=== PATIENT | male | born 1940 | race Hispanic/Latino ===

== ENCOUNTER 2016-06-16 18:02 | Emergency (ER) | payer MEDICARE ==
[2016-06-16 18:04] VITALS: BMI 31.9
[2016-06-16 18:12] VITALS: BP 127/64; PULSE 106; RESP 19; TEMP 98.3; O2SAT 97
--- NOTE | 2016-06-16 19:03 | ED PDOC ---
Arrival/HPI - General Chief Complaint: Upper Extremity Problem/Injury Time Seen by Provider: 06/16/16 18:27 Historian: Patient - History of Present Illness Narrative History of Present Illness (Text): 06/16/16 18:56 75yo male present with the son by the bedside with right elbow redness, swelling and pain, present for right elbow xray. The son notes history of bursitis to same elbow with similar symptoms. States patient have a pin in the same elbow and not sure if he fell and landed on the elbow. 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 states they came to ED to r/o fracture before draining the elbow. He denies any other complaint. Past Medical History - Provider Review Nursing Documentation Reviewed: Yes - Infectious Disease Hx of Infectious Diseases: None - Tetanus Immunization Tetanus Immunization: Unknown - Cardiac Hx Cardiac Disorders: Yes Hx Congestive Heart Failure: Yes Hx Pacemaker: No Other/Comment: silent CT - Pulmonary Hx Respiratory Disorders: Yes (PULMONARY FIBROSIS) Hx Chronic Obstructive Pulmonary Disease (COPD): Yes Hx Sleep Apnea: Yes - Neurological Hx Neurological Disorder: Yes - HEENT Hx HEENT Disorder: Yes Other/Comment: Left [place] - Renal Hx Renal Disorder: Yes Other/Comment: Kidney Cyst- benign - Endocrine/Metabolic Hx Endocrine Disorders: Yes Hx Hypothyroidism: Yes - Hematological/Oncological Hx Blood Disorders: Yes - Integumentary Hx Dermatological Disorder: Yes Other/Comment: Dermatitis. Vitiligo - Musculoskeletal/Rheumatological Hx Musculoskeletal Disorders: Yes Hx Falls: No - Gastrointestinal Hx Gastrointestinal Disorders: Yes Hx Gastroesophageal Reflux: Yes Other/Comment: Endoscopy upper/lower- baretts. Polyps removed. Colonoscopy 7 months ago. - Genitourinary/Gynecological Hx Genitourinary Disorders: Yes Hx Prostate Problems: Yes (BPH) Other/Comment: Urgency in urination. Erectile Dysfunction. Right hydrocoele ( Scrotum) - Psychiatric Hx Emotional Abuse: No Hx Physical Abuse: No Hx Substance Use: No - Surgical History Hx Appendectomy: Yes Hx Cardiac Catheterization: Yes Hx Orthopedic Surgery: Yes Other/Comment: ex-lap, right elbow repair, left elbow rotator cuff repair 2016 - Anesthesia Hx Anesthesia: Yes Hx Anesthesia Reactions: Yes ("BLEEDING FROM AIRWAY USED") Hx Malignant Hyperthermia: No - Suicidal Assessment Feels Threatened In Home Enviroment: No Family/Social History - Physician Review Nursing Documentation Reviewed: Yes Family/Social History: Unknown Family HX Smoking Status: Former Smoker Hx Alcohol Use: Yes (H/O) Frequency of alcohol use: Socially Hx Substance Use: No Hx Substance Use Treatment: No Allergies/Home Meds Allergies/Adverse Reactions: Allergies tape Adverse Reaction (Uncoded 06/16/16 18:12) REDNESS Home Medications: Home Meds Medication Instructions Recorded Confirmed Ascorbic Acid [Natural Vitamin C] 1,000 mg PO QAM 09/13/11 06/16/16 Atorvastatin [Lipitor] 40 mg PO QAM 09/13/11 06/16/16 Natalizumab [Tysabri] 1 dose IV ONCE 09/13/11 06/16/16 Mefloquine [Lariam] 250 mg PO [facility] 01/20/15 06/16/16 Mirtazapine [Remeron] 15 mg PO HS 01/20/15 06/16/16 Esomeprazole Magnesium [Nexium] 40 mg PO DAILY 05/12/15 06/16/16 Montelukast [Singulair] 10 mg PO HS 05/12/15 06/16/16 [place]-3 Fatty Acids/Fish Oil 300 mg PO DAILY 05/12/15 06/16/16 [[place] 3 Fish Oil Softgel] Polyethylene Glycol 3350 [Miralax] 34 mg PO DAILY 05/12/15 06/16/16 Prasugrel [Effient] 10 mg PO DAILY 05/12/15 06/16/16 Temazepam [Restoril] 7.5 mg PO HS 05/12/15 06/16/16 Vitamin B Complex [Super B-50 1 tab PO DAILY 05/12/15 06/16/16 Complex] Levothyroxine [Synthroid] 175 mcg PO DAILY 07/30/15 06/16/16 Lisinopril [Zestril] 5 mg PO DAILY 07/30/15 06/16/16 Tiotropium [Spiriva] 18 mcg NEB DAILY 07/30/15 06/16/16 Venlafaxine HCl [Venlafaxine HCl 75 mg PO DAILY 07/30/15 06/16/16 ER] buPROPion [Wellbutrin] 100 mg PO DAILY 07/30/15 06/16/16 Multivit-Min/FA/Lycopen/Lutein 1 tab PO DAILY 09/05/15 06/16/16 [Centrum Silver Tablet] Fluticasone Furoate [Arnuity 1 inh INH DAILY 03/13/16 06/16/16 Ellipta] Levalbuterol Tartrate [Xopenex Hfa] 1 puff INH QID 03/13/16 06/16/16 Bisacodyl [Dulcolax] 1 supp .ROUTE PRN PRN 03/17/16 06/16/16 Cholecalciferol [Vitamin D 1000 IU] 1 tab PO DAILY 03/17/16 06/16/16 Guaifenesin [Mucus Relief] 1 tab PO DAILY 03/17/16 06/16/16 Review of Systems - Physician Review All systems were reviewed & negative as marked: Yes - Review of Systems Constitutional: Normal Eyes: Normal ENT: Normal Respiratory: Normal Cardiovascular: Normal Gastrointestinal: Normal Genitourinary Male: Normal Musculoskeletal: Arthralgias (Right elbow pain) Skin: Normal Neurological: Normal Endocrine: Normal Hemo/Lymphatic: Normal Psychiatric: Normal Physical Exam Vital Signs Reviewed: Yes Vital Signs Temp Pulse Resp BP Pulse Ox 06/16/16 18:05 98.3 F 106 H 19 127/64 97 Temperature: Afebrile Blood Pressure: Normal Pulse: Regular Respiratory Rate: Normal Appearance: Positive for: Well-Appearing, Non-Toxic, Comfortable Pain Distress: None Mental Status: Positive for: Alert and Oriented X 3 - Systems Exam Head: Present: Atraumatic, Normocephalic Pupils: Present: PERRL Extroacular Muscles: Present: EOMI Conjunctiva: Present: Normal Mouth: Present: Moist Mucous Membranes Neck: Present: Normal Range of Motion Respiratory/Chest: Present: Clear to Auscultation, Good Air Exchange. No: Respiratory Distress, Accessory Muscle Use Cardiovascular: Present: Regular Rate and Rhythm, Normal S1, S2. No: Murmurs Abdomen: Present: Normal Bowel Sounds. No: Tenderness, Distention, Peritoneal Signs Back: Present: Normal Inspection Upper Extremity: Present: Normal ROM, NORMAL PULSES, Tenderness (Right elbow), Swelling (right elbow), Erythema, Temperature Abnormalties (Warm to touch), Capillary Refill < 2s. No: Cyanosis, Edema, Neurovascularly Intact, Deformity Lower Extremity: Present: Normal Inspection. No: Edema Neurological: Present: GCS=15, CN II-XII Intact, Speech Normal Skin: Present: Warm, Dry, Normal Color. No: Rashes Psychiatric: Present: Alert, Oriented x 3, Normal Insight, Normal Concentration Medical Decision Making ED Course and Treatment: 06/16/16 19:26 Right elbow xray - No acute fracture noted. Pins noted in place Result was DW both patient and the son - RAD Interpretation Radiology Orders: 06/16/16 18:53 ELBOW RIGHT 3 VIEWS ROUTINE [RAD] Stat Disposition/Present on Arrival - Present on Arrival Any Indicators Present on Arrival: No History of DVT/PE: No History of Uncontrolled Diabetes: No Urinary Catheter: No History of Decub. Ulcer: No History Surgical Site Infection Following: None - Disposition Have Diagnosis and Disposition been Completed?: Yes Diagnosis: Elbow pain Disposition: HOME/ ROUTINE Disposition Time: 19:30 Patient Plan: Discharge Condition: STABLE Discharge Instructions (ExitCare): Arthralgia (ED) Additional Instructions: Follow up with your doctor/Orthopedist Return to ED for any new or worsening symptoms Referrals: Isreal Choi MD [Primary Care Provider] - Follow up with primary
[2016-06-16] MEDS ORDERED: Oxycodone/Acetaminophen 5/325 mg Tab PO STA (19:36)
--- NOTE | 2016-06-17 07:10 | RAD ---
PROCEDURE: Right Wrist Radiographs. HISTORY: elbow pain/swelling COMPARISON: None. FINDINGS: BONES: Status post ORIF of distal humerus and proximal ulnar fracture with fixation plates and screws in place. Good anatomic alignment. JOINTS: Normal. No dislocation. SOFT TISSUES: Normal. OTHER FINDINGS: None. IMPRESSION: Status post ORIF of distal humerus and proximal ulnar fractures with fixation plate and screws in place.
== END 2016-06-16 19:45 | disposition home or self-care (01) ==
LOC: ED 18:02
DX: M25.521 Pain in right elbow (principal)

== ENCOUNTER 2016-12-22 06:36 | Inpatient (IN) | payer MEDICARE ==
[2016-12-22 06:42] VITALS: BMI 29.7
[2016-12-22] MEDS ORDERED: Morphine 4 mg/ml ISec IVP STA (07:39)
--- NOTE | 2016-12-22 07:53 | ED PDOC ---
Arrival/HPI - General Chief Complaint: Trauma Time Seen by Provider: 12/22/16 07:18 Historian: Patient - History of Present Illness Narrative History of Present Illness (Text): 12/22/16 07:30 Tonio Dueñas is a 76 year old male, whose past medical history includes Multiple Sclerosis, hypertension, hypothyroidism, GERD, COPD, BPH and DC, who presents to the emergency department complaining of left sided body pain, mainly on ribs, s/p mechanical fall since yesterday evening. Patient reports he was on the street when his foot got caught causing him to trip and fall, landing on his left side. He notes on baseline, he is usually weakness on the right side due to his multiple sclerosis. He states the pain is worse when breathing around the 6th -8th ribs. Patient also has abrasions on left knee and a spreading of ecchymosis in the left sided abdomen and rib area. Patient denies chest pain, shortness of breath, headache, neck pain, vision changes, nausea, vomiting, or other complaints. Patient did not hit their head or loss consciousness. Additionally, patient notes he is currently on blood thinners. PMD: Dr. Negron Surgery: Dr. Choi Time/Duration: 24 hours Symptom Onset: Sudden Symptom Course: Unchanged Context: Street, Tripped Associated Symptoms (Text): abrasions, ecchymosis, left rib pain Past Medical History - Provider Review Nursing Documentation Reviewed: Yes - Infectious Disease Hx of Infectious Diseases: None - Tetanus Immunization Tetanus Immunization: Unknown - Cardiac Hx Cardiac Disorders: Yes Hx Congestive Heart Failure: Yes Other/Comment: silent DC - Pulmonary Hx Respiratory Disorders: Yes (PULMONARY FIBROSIS) Hx Chronic Obstructive Pulmonary Disease (COPD): Yes Hx Sleep Apnea: Yes - Neurological Hx Neurological Disorder: Yes - HEENT Hx HEENT Disorder: Yes Other/Comment: Left [place] - Renal Hx Renal Disorder: Yes Other/Comment: Kidney Cyst- benign - Endocrine/Metabolic Hx Endocrine Disorders: Yes Hx Hypothyroidism: Yes - Hematological/Oncological Hx Blood Disorders: Yes - Integumentary Hx Dermatological Disorder: Yes Other/Comment: Dermatitis. Vitiligo - Musculoskeletal/Rheumatological Hx Musculoskeletal Disorders: Yes Hx Falls: No - Gastrointestinal Hx Gastrointestinal Disorders: Yes Hx Gastroesophageal Reflux: Yes Other/Comment: Endoscopy upper/lower- baretts. Polyps removed. Colonoscopy 7 months ago. - Genitourinary/Gynecological Hx Genitourinary Disorders: Yes Hx Prostate Problems: Yes (BPH) Other/Comment: Urgency in urination. Erectile Dysfunction. Right hydrocoele ( Scrotum) - Psychiatric Hx Emotional Abuse: No Hx Physical Abuse: No Hx Substance Use: No - Surgical History Hx Appendectomy: Yes Hx Cardiac Catheterization: Yes Hx Orthopedic Surgery: Yes Other/Comment: ex-lap, right elbow repair, left elbow rotator cuff repair 2016 - Anesthesia Hx Anesthesia: Yes Hx Anesthesia Reactions: Yes ("BLEEDING FROM AIRWAY USED") Hx Malignant Hyperthermia: No - Suicidal Assessment Feels Threatened In Home Enviroment: No Family/Social History - Physician Review Nursing Documentation Reviewed: Yes Family/Social History: Unknown Family HX Smoking Status: Former Smoker Hx Alcohol Use: Yes (H/O) Hx Substance Use: No Hx Substance Use Treatment: No Allergies/Home Meds Allergies/Adverse Reactions: Allergies tape Adverse Reaction (Uncoded 12/22/16 06:42) REDNESS Home Medications: Home Meds Medication Instructions Recorded Confirmed Ascorbic Acid [Natural Vitamin C] 1,000 mg PO QAM 09/13/11 12/22/16 Atorvastatin [Lipitor] 40 mg PO QAM 09/13/11 12/22/16 Natalizumab [Tysabri] 1 dose IV ONCE 09/13/11 12/22/16 Mefloquine [Lariam] 250 mg PO [facility] 01/20/15 12/22/16 Mirtazapine [Remeron] 15 mg PO HS 01/20/15 12/22/16 Esomeprazole Magnesium [Nexium] 40 mg PO DAILY 05/12/15 12/22/16 Montelukast [Singulair] 10 mg PO HS 05/12/15 12/22/16 [place]-3 Fatty Acids/Fish Oil 300 mg PO DAILY 05/12/15 12/22/16 [[place] 3 Fish Oil Softgel] Polyethylene Glycol 3350 [Miralax] 34 mg PO DAILY 05/12/15 12/22/16 Prasugrel [Effient] 10 mg PO DAILY 05/12/15 12/22/16 Temazepam [Restoril] 7.5 mg PO HS 05/12/15 12/22/16 Vitamin B Complex [Super B-50 1 tab PO DAILY 05/12/15 12/22/16 Complex] Levothyroxine [Synthroid] 175 mcg PO DAILY 07/30/15 12/22/16 Lisinopril [Zestril] 5 mg PO DAILY 07/30/15 12/22/16 Tiotropium [Spiriva] 18 mcg NEB DAILY 07/30/15 12/22/16 Venlafaxine HCl [Venlafaxine HCl 75 mg PO DAILY 07/30/15 12/22/16 ER] buPROPion [Wellbutrin] 100 mg PO DAILY 07/30/15 12/22/16 Multivit-Min/FA/Lycopen/Lutein 1 tab PO DAILY 09/05/15 12/22/16 [Centrum Silver Tablet] Fluticasone Furoate [Arnuity 1 inh INH DAILY 03/13/16 12/22/16 Ellipta] Levalbuterol Tartrate [Xopenex Hfa] 1 puff INH QID 03/13/16 12/22/16 Bisacodyl [Dulcolax] 1 supp .ROUTE PRN PRN 03/17/16 12/22/16 Cholecalciferol [Vitamin D 1000 IU] 1 tab PO DAILY 03/17/16 12/22/16 Guaifenesin [Mucus Relief] 1 tab PO DAILY 03/17/16 12/22/16 Armodafinil [Nuvigil 250 mg Tab] 250 mg PO HS 12/22/16 12/22/16 Aspirin [Ecotrin] 324 mg PO DAILY 12/22/16 12/22/16 Ciclesonide [Alvesco] 1 puff INH PRN PRN 12/22/16 12/22/16 Oxycodone HCl/Acetaminophen 1 tab PO PRN PRN 12/22/16 12/22/16 [Endocet 7.5-325 mg Tablet] Review of Systems - Review of Systems Constitutional: absent: Fevers Eyes: absent: Vision Changes Respiratory: absent: SOB Cardiovascular: absent: Chest Pain Gastrointestinal: absent: Abdominal Pain, Nausea, Vomiting Genitourinary Male: absent: Dysuria Musculoskeletal: Other (left sided rib pain, worse when breathing) Skin: Other (abrasion on the left knee) Neurological: absent: Headache, Dizziness Endocrine: absent: Polydipsia Physical Exam Vital Signs Reviewed: Yes Vital Signs Temp Pulse Resp BP Pulse Ox 12/22/16 09:55 97 H 20 158/82 H 98 12/22/16 08:28 90 14 142/85 98 12/22/16 07:15 96 H 20 163/96 H 95 12/22/16 06:50 97.7 F 93 H 18 172/87 H 97 Temperature: Afebrile Blood Pressure: Hypertensive Pulse: Tachycardic Respiratory Rate: Normal Appearance: Positive for: Well-Appearing, Non-Toxic, Comfortable Pain Distress: None Mental Status: Positive for: Alert and Oriented X 3 - Systems Exam Head: Present: Atraumatic, Normocephalic Pupils: Present: PERRL Extroacular Muscles: Present: EOMI Conjunctiva: Present: Normal Mouth: Present: Moist Mucous Membranes Neck: Present: Normal Range of Motion Respiratory/Chest: Present: Clear to Auscultation, Good Air Exchange. No: Respiratory Distress, Accessory Muscle Use Cardiovascular: Present: Regular Rate and Rhythm, Normal S1, S2. No: Murmurs Abdomen: Present: Tenderness (left upper abdomen tenderness with ecchymosis), Normal Bowel Sounds. No: Distention, Peritoneal Signs Upper Extremity: Present: Tenderness (left lower rib tenderness with ecchymosis) , Other (left elbow superficial skin avulsion ). No: Cyanosis, Edema Lower Extremity: Present: Normal ROM, Other (left knee abrasion ). No: Edema Neurological: Present: GCS=15, CN II-XII Intact, Speech Normal Skin: Present: Warm, Dry, Normal Color. No: Rashes Psychiatric: Present: Alert, Oriented x 3, Normal Insight, Normal Concentration Medical Decision Making ED Course and Treatment: 12/22/16 Impression: 76 year old male with left lower rib tenderness with ecchymosis, left upper abdomen tenderness with ecchymosis, left knee abrasion with FROM, and left elbow superficial skin avulsion. Differential Diagnosis included but are not limited to: mechanical fall with left rib pain r/o fracture r/o pneumothorax r/o pulmonary contusion r/o intra- abdominal organ injury. Left knee abrasion r/o fracture Plan: -- CT chest, abdomen, pelvis with IV contrast -- Labs -- Left Knee X-ray -- Morphine -- Reassess and disposition Progress Notes: 12/22/16 09:20 CT abdomen, chest, and pelvis: Creator : Alem Tobar MD COMPARISON: Comparison is made to the previous study dated 11/04/2014 FINDINGS: CT CHEST WITH CONTRAST: LUNGS: There are foci of airspace consolidation at the lung bases left larger than the right likely represent atelectasis. The possibility of aspiration is less likely. Re- demonstration of mild emphysematous changes in the lungs more prominent in the upper lobes. MEDIASTINUM: Unremarkable. Normal caliber aorta and pulmonary arterial trunk. No aortic dissection. The heart is mildly enlarged. Mild diffuse dietitian of the esophagus noted contains fluid and air-fluid level. LYMPH NODES: Unremarkable. PLEURA: No evidence of significant pleural effusion or pneumothorax. BONES: There is mildly displaced fracture at the lateral aspect of the left 7th and 8th ribs and small nondisplaced fracture at the lateral aspect of the 9th rib. OTHER FINDINGS: None. CT ABDOMEN AND PELVIS: LIVER: Unremarkable. No gross lesion or ductal dilatation. GALLBLADDER AND BILE DUCTS: Unremarkable. PANCREAS: No evidence of acute pathology. No gross lesion or ductal dilatation. SPLEEN: Unremarkable. ADRENALS: Unremarkable. No mass. KIDNEYS AND URETERS:No evidence of obstructing stone or hydronephrosis. Again seen is complex lesion contains peripheral calcification exophytic from the lower pole of the right kidney measures 1.6 centimeter which has not significantly change comparing to the previous study dated 11/04/2014 VASCULATURE: Unremarkable. No aortic aneurysm. BOWEL: Unremarkable. No obstruction. No gross mural thickening. APPENDIX: Normal appendix. PERITONEUM: Unremarkable. No free fluid. No free air. Postsurgical changes noted at the right mid abdomen. LYMPH NODES: Unremarkable. No enlarged lymph nodes. BLADDER: Unremarkable. REPRODUCTIVE: Unremarkable. BONES: No acute fracture. OTHER FINDINGS: Again seen is left anterior chest wall subcutaneous intramuscular lipoma IMPRESSION: Mildly displaced fractures at the lateral aspect of the left 7th and 8th ribs and nondisplaced small fracture at the left 9th rib. No evidence of pneumothorax or significant pleural effusion. Small airspace consolidation at the lung bases likely atelectasis. No evidence of acute pathology in the upper abdomen solid organs. 12/22/16 09:29 Patient's pain is moderately controlled after Morphine and Dilaudid. He is having trouble taking deep breathes. He requested Dr. Choi for surgery. I spoke with the surgical training specialist Emi who will discuss the case with Dr. Choi. 12/22/16 09:45 Left Knee X-ray: Creator : Alem Tobar MD FINDINGS: BONES: Normal. No fracture. JOINTS: Mild osteoarthritic changes. JOINT EFFUSION: None. OTHER FINDINGS: None. IMPRESSION: No evidence of acute fracture or dislocation. 12/22/16 10:47 On reevaluation, patient was having more pain and now wheezing. He still complaints of pain on deep breathes. Treatment with Albuterol and Dilaudid ordered. Patient does not want to be admitted to Dr. Osborne who admits for Dr. Negron. I will admit to the hospitalist service for pain control and COPD. Case was discussed with Dr. Molly Martel who will place the patient on her service. - Critical Care Critical Care Minutes: 30 minutes - Lab Interpretations Lab Results: 12/22/16 07:45 12/22/16 07:45 Lab Results 12/22/16 09:15: Blood Type Confirm O POSITIVE 12/22/16 07:45: Blood Type O POSITIVE, Antibody Screen Negative, BBK History Checked No verified bt 12/22/16 07:45: Sodium 139, Potassium 4.6, Chloride 103, Carbon Dioxide 27, Anion Gap 14, BUN 22 H, Creatinine 1.0, Est GFR ( Amer) > 60, Est GFR ( Non-Af Amer) > 60, Random Glucose 125 H, Calcium 9.3, Total Bilirubin 0.8, AST 33, ALT 44, Alkaline Phosphatase 120, Total Protein 7.0, Albumin 4.0, Globulin 3.0, Albumin/Globulin Ratio 1.3, Lipase 33 12/22/16 07:45: PT 12.2, INR 1.11 H, APTT 29.4 12/22/16 07:45: WBC 13.7 H, RBC 4.36, Hgb 12.7 L, Hct 38.8 L, MCV 89.0, MCH 29.1 , MCHC 32.7, RDW 14.8 H, Plt Count 222, MPV 9.2, Gran % 61.4, Lymph % (Auto) 27.9, Yell % (Auto) 8.1 H, Eos % (Auto) 2.2, Baso % (Auto) 0.4, Gran # 8.38 H, Lymph # 3.8 H, Yell # 1.1 H, Eos # 0.3, Baso # 0.05 I have reviewed the lab results: Yes - RAD Interpretation Radiology Orders: 12/22/16 07:40 CHEST,ABD,PEL W/IV CONT ONLY [CT] Stat KNEE LEFT 2 VIEWS (AP & LAT) [RAD] Stat Structural Architect: Radiologist - Medication Orders Current Medication Orders: Discontinued Medications Albuterol Sulfate (Albuterol 0.083% Inhal Hallie (2.5 Mg/3 Ml) Ud) 2.5 mg IH STAT STA Stop: 12/22/16 10:11 Last Admin: 12/22/16 10:29 Dose: 2.5 mg Hydromorphone HCl (Dilaudid) 1 mg IVP STAT STA Stop: 12/22/16 08:15 Last Admin: 12/22/16 08:23 Dose: 1 mg MAR Pain Assessment Document 12/22/16 08:23 CNR (Rec: 12/22/16 08:25 CNR [id number]) Pain Reassessment Is this a pain reassessment? Yes IVP Administration Document 12/22/16 08:23 CNR (Rec: 12/22/16 08:25 CNR [id number]) Charges for Administration # of IVP Administrations 1 Hydromorphone HCl (Dilaudid) 1 mg IVP STAT STA Stop: 12/22/16 10:12 Last Admin: 12/22/16 10:29 Dose: 1 mg MAR Pain Assessment Document 12/22/16 10:29 EWO (Rec: 12/22/16 10:29 EWO [id number]) Pain Reassessment Is this a pain reassessment? Yes Sleep Is patient sleeping during reassessment? No Presence of Pain Presence of Pain Yes Pain Scale Used Pain Scale Used Numeric Location Left, Right or Bilateral Left IVP Administration Document 12/22/16 10:29 EWO (Rec: 12/22/16 10:29 EWO [id number]) Charges for Administration # of IVP Administrations 2 Ipratropium [place] (Atrovent) 0.5 mg IH STAT STA Stop: 12/22/16 10:12 Last Admin: 12/22/16 10:29 Dose: 0.5 mg Morphine Sulfate (Morphine) 4 mg IVP STAT STA Stop: 12/22/16 07:40 Last Admin: 12/22/16 07:45 Dose: 4 mg MAR Pain Assessment Document 12/22/16 07:45 CNR (Rec: 12/22/16 07:45 CNR [id number]) Pain Reassessment Is this a pain reassessment? Yes IVP Administration Document 12/22/16 07:45 CNR (Rec: 12/22/16 07:45 CNR [id number]) Charges for Administration # of IVP Administrations 1 - Scribe Statement The provider has reviewed the documentation as recorded by the Scribe Miracle Esquivel Provider Scribe Attestation: All medical record entries made by the Scribe were at my direction and personally dictated by me. I have reviewed the chart and agree that the record accurately reflects my personal performance of the history, physical exam, medical decision making, and the department course for this patient. I have also personally directed, reviewed, and agree with the discharge instructions and disposition. Disposition/Present on Arrival - Present on Arrival Any Indicators Present on Arrival: No History of DVT/PE: No History of Uncontrolled Diabetes: No Urinary Catheter: No History of Decub. Ulcer: No History Surgical Site Infection Following: None - Disposition Have Diagnosis and Disposition been Completed?: Yes Diagnosis: Ribs, multiple fractures, COPD (chronic obstructive pulmonary disease) Disposition: HOSPITALIZED Disposition Time: 09:30 Patient Plan: Observation Patient Problems: Current Active Problems Problem Status Onset Ribs, multiple fractures Acute Condition: FAIR Referrals: Isreal Choi MD [Primary Care Provider] - Follow up with primary Forms: Simphatic ([place] Citizen)
[2016-12-22] MEDS ORDERED: Iohexol 350 MG/100 ML VIAL ONE (08:01)
[2016-12-22 08:05] LABS: BASO # 0.05 K/mm3 (0.0-2.0); BASO % 0.4 % (0.0-3.0); EOS # 0.3 (0.0-0.7); EOS % 2.2 % (1.5-5.0); GRAN # 8.38 (1.4-6.5); GRAN % 61.4 % (50.0-68.0); HEMATOCRIT 38.8 % (42.0-52.0); LYMPH # 3.8 (1.2-3.4); LYMPH % 27.9 % (22.0-35.0); MEAN CORPUSCULAR HEMOGLOBIN 29.1 pg (25.0-35.0); MEAN CORPUSCULAR HGB CONC 32.7 g/dl (31.0-37.0); MEAN PLATELET VOLUME 9.2 fl (7.0-11.0); MONO # 1.1 (0.1-0.6); MONO % 8.1 % (1.0-6.0); RED CELL DISTRIBUTION WIDTH 14.8 % (11.5-14.5); WHITE BLOOD COUNT 13.7 10^3/ul (4.5-11.0)
[2016-12-22 08:10] LABS: INR 1.11 (0.93-1.08); PARTIAL THROMBOPLASTIN TIME 29.4 Seconds (25.1-36.5)
[2016-12-22] MEDS ORDERED: HYDROmorphone 1 mg/ml ISec IVP STA ×2 (08:14→10:11)
[2016-12-22 08:18] LABS: ALB/GLOB RATIO 1.3 (1.1-1.8); ALKALINE PHOSPHATASE 120 U/L (38-126); ALT/SGPT 44 U/L (7-56); AST/SGOT 33 U/L (17-59); BILIRUBIN,TOTAL 0.8 mg/dL (0.2-1.3); BLOOD UREA NITROGEN 22 mg/dL (7-21); CALCIUM 9.3 mg/dL (8.4-10.5); CARBON DIOXIDE 27 mmol/L (21-33); CHLORIDE 103 mmol/L (98-107); GFR AFRICAN-AMERICAN > 60; GLUCOSE,RANDOM 125 mg/dL (70-110); LIPASE 33 U/L (23-300); POTASSIUM 4.6 mmol/L (3.6-5.0); SODIUM 139 mmol/L (132-148)
--- NOTE | 2016-12-22 09:15 | CT ---
PROCEDURE: CT Chest, Abdomen and Pelvis with intravenous contrast HISTORY: L rib upper abd tender r/o fx vs org inj s/p fal COMPARISON: Comparison is made to the previous study dated 11/04/2014 TECHNIQUE: IV dose administered: 100 mL Omnipaque three hundred. Axial and reformatted coronal and sagittal CT images of the chest abdomen and pelvis were obtained after IV contrast administration. Radiation dose: Total exam DLP = 1201.91 mGy-cm. This CT exam was performed using one or more of the following dose reduction techniques: Automated exposure control, adjustment of the mA and/or kV according to patient size, and/or use of iterative reconstruction technique. FINDINGS: CT CHEST WITH CONTRAST: LUNGS: There are foci of airspace consolidation at the lung bases left larger than the right likely represent atelectasis. The possibility of aspiration is less likely. Re- demonstration of mild emphysematous changes in the lungs more prominent in the upper lobes. MEDIASTINUM: Unremarkable. Normal caliber aorta and pulmonary arterial trunk. No aortic dissection. The heart is mildly enlarged. Mild diffuse dietitian of the esophagus noted contains fluid and air-fluid level. LYMPH NODES: Unremarkable. PLEURA: No evidence of significant pleural effusion or pneumothorax. BONES: There is mildly displaced fracture at the lateral aspect of the left 7th and 8th ribs and small nondisplaced fracture at the lateral aspect of the 9th rib. OTHER FINDINGS: None. CT ABDOMEN AND PELVIS: LIVER: Unremarkable. No gross lesion or ductal dilatation. GALLBLADDER AND BILE DUCTS: Unremarkable. PANCREAS: No evidence of acute pathology. No gross lesion or ductal dilatation. SPLEEN: Unremarkable. ADRENALS: Unremarkable. No mass. KIDNEYS AND URETERS: No evidence of obstructing stone or hydronephrosis. Again seen is complex lesion contains peripheral calcification exophytic from the lower pole of the right kidney measures 1.6 centimeter which has not significantly change comparing to the previous study dated 11/04/2014 VASCULATURE: Unremarkable. No aortic aneurysm. BOWEL: Unremarkable. No obstruction. No gross mural thickening. APPENDIX: Normal appendix. PERITONEUM: Unremarkable. No free fluid. No free air. Postsurgical changes noted at the right mid abdomen. LYMPH NODES: Unremarkable. No enlarged lymph nodes. BLADDER: Unremarkable. REPRODUCTIVE: Unremarkable. BONES: No acute fracture. OTHER FINDINGS: Again seen is left anterior chest wall subcutaneous intramuscular lipoma IMPRESSION: Mildly displaced fractures at the lateral aspect of the left 7th and 8th ribs and nondisplaced small fracture at the left 9th rib. No evidence of pneumothorax or significant pleural effusion. Small airspace consolidation at the lung bases likely atelectasis. No evidence of acute pathology in the upper abdomen solid organs.
--- NOTE | 2016-12-22 09:47 | RAD ---
PROCEDURE: Left Knee Radiographs. HISTORY: Pain. COMPARISON: None. FINDINGS: BONES: Normal. No fracture. JOINTS: Mild osteoarthritic changes. JOINT EFFUSION: None. OTHER FINDINGS: None. IMPRESSION: No evidence of acute fracture or dislocation.
[2016-12-22] MEDS ORDERED: Albuterol 0.083% Inhal Sol (2.5 mg/3 mL) UD IH STA (10:10)
[2016-12-22] MEDS ORDERED: Ipratropium 0.02% Inhal Soln (0.5 mg/2.5 ml) UD IH STA (10:11)
--- NOTE | 2016-12-22 11:32 | CP.PCM.CON ---
History of Present Illness - History of Present Illness History of Present Illness: General surgery consult note for Dr. Yifan Wilson, PGY-1 Pt S & E at bedside. 76M w/PMH sig for MS and R sided muscle weakness consulted for L rib fractures x 3. Pt reports ambulating to car this AM when he tripped, feel to ground protecting his head with resulting trauma to Left side of body including L knee , L elbow, Left thorax. Denies dizziness, LOC, syncope, recent illness, changes from baseline bowel and bladder habits. PMH: MS w/R sided muscle weakness, hypothyroidism, chronic constipation on daily Miralax, hydrocele, COPD, HTN, HLD, s/p ME w/SAGAR x 2, hearing loss bilat PSH: s/p LN biopsy of thorax, RIHR (2011), appy, ex-lap w/finding of clot All: Tape SH: former heavy tobacco user (50+ yrs), rare ETOH use, denies illicit drug use PMD: Condo Review of Systems - Review of Systems All systems: reviewed and no additional remarkable complaints except - Constitutional Constitutional: Weakness (R sided 2/2 MS). absent: Chills, Fever, Headache - EENT Eyes: absent: Change in Vision Ears: Decreased Hearing Nose/Mouth/Throat: absent: Sore Throat - Cardiovascular Cardiovascular: absent: Chest Pain, Lightheadedness, Syncope - Respiratory Respiratory: Wheezing (chronic) - Gastrointestinal Gastrointestinal: Constipation (chronic). absent: Change in Bowel Habits, Diarrhea, Nausea, Vomiting - Genitourinary Genitourinary: absent: Change in Urinary Stream - Musculoskeletal Musculoskeletal: Muscle Weakness (R sided), Other (Left elbow and keep pain ) - Integumentary Integumentary: Other (Abrasion of L elbow and L knee) Past Patient History - Infectious Disease Hx of Infectious Diseases: None - Tetanus Immunizations Tetanus Immunization: Unknown - Past Medical History & Family History Past Medical History?: Yes - Past Social History Smoking Status: Former Smoker - CARDIAC Hx Cardiac Disorders: Yes Hx Congestive Heart Failure: Yes Other/Comment: silent ME - PULMONARY Hx Respiratory Disorders: Yes (PULMONARY FIBROSIS) Hx Chronic Obstructive Pulmonary Disease (COPD): Yes Hx Sleep Apnea: Yes - NEUROLOGICAL Hx Neurological Disorder: Yes - HEENT Hx HEENT Problems: Yes Other/Comment: Left [place] - RENAL Hx Chronic Kidney Disease: Yes Other/Comment: Kidney Cyst- benign - ENDOCRINE/METABOLIC Hx Endocrine Disorders: Yes Hx Hypothyroidism: Yes - HEMATOLOGICAL/ONCOLOGICAL Hx Blood Disorders: Yes - INTEGUMENTARY Hx Dermatological Problems: Yes Other/Comment: Dermatitis. Vitiligo - MUSCULOSKELETAL/RHEUMATOLOGICAL Hx Musculoskeletal Disorders: Yes Hx Falls: No - GASTROINTESTINAL Hx Gastrointestinal Disorders: Yes Hx Gastroesophageal Reflux: Yes Other/Comment: Endoscopy upper/lower- baretts. Polyps removed. Colonoscopy 7 months ago. - GENITOURINARY/GYNECOLOGICAL Hx Genitourinary Disorders: Yes Hx Prostate Problems: Yes (BPH) Other/Comment: Urgency in urination. Erectile Dysfunction. Right hydrocoele ( Scrotum) - PSYCHIATRIC Hx Emotional Abuse: No Hx Physical Abuse: No Hx Substance Use: No - SURGICAL HISTORY Hx Appendectomy: Yes Hx Cardiac Catheterization: Yes Hx Orthopedic Surgery: Yes Other/Comment: ex-lap, right elbow repair, left elbow rotator cuff repair 2015 - ANESTHESIA Hx Anesthesia: Yes Hx Anesthesia Reactions: Yes ("BLEEDING FROM AIRWAY USED") Hx Malignant Hyperthermia: No Meds Allergies/Adverse Reactions: Allergies Allergy/AdvReac Type Severity Reaction Status Date / Time tape AdvReac REDNESS Uncoded 12/22/16 06:42 Physical Exam - Constitutional Appears: Non-toxic, No Acute Distress - Head Exam Head Exam: ATRAUMATIC, NORMAL INSPECTION, NORMOCEPHALIC - Eye Exam Eye Exam: EOMI, Normal appearance - ENT Exam ENT Exam: Mucous Membranes Moist, Normal Exam - Neck Exam Neck exam: Positive for: Full Rom, Normal Inspection - Respiratory Exam Respiratory Exam: Chest Wall Tenderness (Left chest wall), Clear to Auscultation Bilateral, NORMAL BREATHING PATTERN. absent: Accessory Muscle Use , Rales, Rhonchi, Wheezes - Cardiovascular Exam Cardiovascular Exam: REGULAR RHYTHM, +S1, +S2 - GI/Abdominal Exam GI & Abdominal Exam: Normal Bowel Sounds, Soft, Tenderness (over left abdominal wall). absent: Distended (obese) - Extremities Exam Additional comments: Left knee with dressings in place- Clean/dry/intact; left elbow with dressing and kirlex in place- clean/dry/intact - Neurological Exam Neurological exam: Alert, CN II-XII Intact, Oriented x3 - Psychiatric Exam Psychiatric exam: Normal Affect, Normal Mood - Skin Skin Exam: Dry, Warm Additional comments: visible ecchymoses over lateral aspect of left forearm below the dressing Results - Vital Signs Recent Vital Signs: Last Vital Signs Temp 97.7 F 12/22/16 06:50 Pulse 95 H 12/22/16 11:00 Resp 18 12/22/16 11:00 BP 138/77 12/22/16 11:00 Pulse Ox 94 L 12/22/16 11:00 - Labs Result Diagrams: 12/22/16 07:45 12/22/16 07:45 Assessment & Plan - Assessment and Plan (Free Text) Assessment: 76M w/fractures of L ribs 7-9 s/p mechanical fall consulted for Left thorax pain - pt currently stable Plan: Pain control Incentive spirometry pulmonary toilet Anesthesia for local nerve block to L ribs 7-9 Pulm consult OOBTC further management as per primary team IANI attending Katie, PGY-4 - Date & Time Date: 12/22/16 Time: 11:34
[2016-12-22] MEDS ORDERED: CICLESONIDE INH PRN (12:36)
[2016-12-22] MEDS ORDERED: OMEGA PO SCH (12:45)
[2016-12-22] MEDS ORDERED: GUAIFENESIN PO SCH (12:45)
[2016-12-22] MEDS ORDERED: FLUTICASONE FUROATE INH SCH (12:45)
[2016-12-22] MEDS ORDERED: FATTY ACIDS PO SCH (12:45)
[2016-12-22] MEDS ORDERED: [UNRECOGNIZED DRUG - OTHER] PO SCH (12:45)
[2016-12-22] MEDS ORDERED: VENLAFAXINE HCL 75 MG PO SCH (12:45)
[2016-12-22] MEDS ORDERED: Aspirin 325 mg EC Tablets PO SCH (12:45)
[2016-12-22] MEDS ORDERED: FISH OIL PO SCH (12:45)
[2016-12-22] MEDS: HYDROmorphone 1 mg/ml ISec IVP PRN ×3 (13:25→23:21)
[2016-12-22] MEDS: Aspirin 325 mg EC Tablets PO SCH ×2 (14:57→15:08)
[2016-12-22] MEDS: Tiotropium 18 mcg Cap For Inhalation IH SCH (14:57)
[2016-12-22] MEDS: Levalbuterol 0.63 MG/3 ML Inhal Soln UD IH SCH ×2 (15:31→21:30)
[2016-12-22] MEDS: Morphine 2 mg/ml ISec IVP PRN (15:42)
--- NOTE | 2016-12-22 19:22 | CP.PCM.HP ---
<Gurdeep Mulligan - Last Filed: 12/22/16 18:31> History of Present Illness - History of Present Illness History of Present Illness: IM H&P for Hospitalist Service CC: Left-sided chest/flank pain s/p mechanical fall HPI: This is a 76 yo M with PMH of MS (chronic R-sided muscle weakness ), MT s/p 2 stents, hypothyroidism, chronic constipation on daily Miralax, hydrocele, COPD, HTN, HLD, and hearing loss bilaterally who presented to [facility] [place] 1 day after mechanical fall onto left side with intractable left flank and left chest pain. As per patient, he was walking to his car, and believes he hit some debris when planting his left foot, causing him to lose his balance and fall. He denies syncope/near-syncope, weakness prior to/during/after the fall, memory loss, or head trauma. Reports that he was able to protect his head on the way down, and did not strike it. Initially attempted to self manage his home pain, but today felt that the pain was unbearable, so he presented to the ED. Imaging in the ED was notable for left lateral rib fractures at ribs 7-9 ( mildly displaced 7th and 8th, non-displaced 9th). He reports no pain when lying at rest, but significant pain with any movement, deep breathing, or coughing. Denies physical difficultly breathing, radiating chest pain, nausea/ emesis, fevers/chills, diarrhea, dysuria/hematuria, or acute vision changes. Admits to baseline R-sided weakness 2/2 MS, no acute changes, and baseline constipation. All other ROS in 12-system review negative. PMH: as above PSH: s/p LN biopsy of thorax, R inguinal hernia repair (2011), appy, ex-lap w/ finding of clot, Cardiac cath and stenting SHx: former heavy tobacco user (~50 yrs of 2ppd on average, quit > 15 years ago) , rare ETOH use, denies illicits/IVDA drug use FHx: CAD (Father) PMD: Condo Present on Admission - Present on Admission Any Indicators Present on Admission: No History of DVT/PE: No History of Uncontrolled Diabetes: No Urinary Catheter: No Review of Systems - Review of Systems All systems: reviewed and no additional remarkable complaints except (as per HPI ) Past Patient History - Infectious Disease Hx of Infectious Diseases: None - Tetanus Immunizations Tetanus Immunization: Unknown - Past Medical History & Family History Past Medical History?: Yes - Past Social History Smoking Status: Former Smoker - CARDIAC Hx Cardiac Disorders: Yes Hx Congestive Heart Failure: Yes Other/Comment: silent MT - PULMONARY Hx Respiratory Disorders: Yes (PULMONARY FIBROSIS) Hx Chronic Obstructive Pulmonary Disease (COPD): Yes Hx Sleep Apnea: Yes - NEUROLOGICAL Hx Neurological Disorder: Yes - HEENT Hx HEENT Problems: Yes Other/Comment: Left [place] - RENAL Hx Chronic Kidney Disease: Yes Other/Comment: Kidney Cyst- benign - ENDOCRINE/METABOLIC Hx Endocrine Disorders: Yes Hx Hypothyroidism: Yes - HEMATOLOGICAL/ONCOLOGICAL Hx Blood Disorders: Yes - INTEGUMENTARY Hx Dermatological Problems: Yes Other/Comment: Dermatitis. Vitiligo - MUSCULOSKELETAL/RHEUMATOLOGICAL Hx Musculoskeletal Disorders: Yes Hx Falls: No - GASTROINTESTINAL Hx Gastrointestinal Disorders: Yes Hx Gastroesophageal Reflux: Yes Other/Comment: Endoscopy upper/lower- baretts. Polyps removed. Colonoscopy 7 months ago. - GENITOURINARY/GYNECOLOGICAL Hx Genitourinary Disorders: Yes Hx Prostate Problems: Yes (BPH) Other/Comment: Urgency in urination. Erectile Dysfunction. Right hydrocoele ( Scrotum) - PSYCHIATRIC Hx Emotional Abuse: No Hx Physical Abuse: No Hx Substance Use: No - SURGICAL HISTORY Hx Appendectomy: Yes Hx Cardiac Catheterization: Yes Hx Orthopedic Surgery: Yes Other/Comment: ex-lap, right elbow repair, left elbow rotator cuff repair 2015 - ANESTHESIA Hx Anesthesia: Yes Hx Anesthesia Reactions: Yes ("BLEEDING FROM AIRWAY USED") Hx Malignant Hyperthermia: No Meds Allergies/Adverse Reactions: Allergies Allergy/AdvReac Type Severity Reaction Status Date / Time tape AdvReac REDNESS Uncoded 12/22/16 06:42 Physical Exam - Constitutional Appears: Non-toxic, No Acute Distress (at rest), In Acute Distress (acute distress from pain with any coughing or movement involving the trunk) - Head Exam Head Exam: ATRAUMATIC, NORMAL INSPECTION, NORMOCEPHALIC - Eye Exam Eye Exam: EOMI, Normal appearance, PERRL. absent: Conjunctival injection, Scleral icterus Pupil Exam: NORMAL ACCOMODATION, PERRL. absent: Fixed, Irregular, Unequal - ENT Exam ENT Exam: Mucous Membranes Moist - Neck Exam Neck exam: Positive for: Normal Inspection. Negative for: Tenderness - Respiratory Exam Respiratory Exam: Chest Wall Tenderness (moderately tender to palpation along left-chest wall and side, however had recently received pain medication so likely blunted exam finding), Decreased Breath Sounds (mildly decreased breath sounds in all zimmerman), Clear to Auscultation Bilateral, Prolonged Expiratory Phase, NORMAL BREATHING PATTERN. absent: Accessory Muscle Use, Rales, Rhonchi, Wheezes Additional comments: wearing chest binder - Cardiovascular Exam Cardiovascular Exam: REGULAR RHYTHM, RRR, +S1, +S2. absent: Bradycardia, Tachycardia, Irregular Rhythm, JVD, +S4 - GI/Abdominal Exam GI & Abdominal Exam: Normal Bowel Sounds, Soft. absent: Distended, Firm, Guarding, Rigid, Tenderness - Extremities Exam Extremities exam: Positive for: normal inspection, pedal pulses present. Negative for: calf tenderness, joint swelling, pedal edema - Neurological Exam Neurological exam: Alert, CN II-XII Intact, Oriented x3 Additional comments: mild R-sided weakness, RUE and RLE motor and conservation worker strength 4/5, LUE and LLE motor and conservation worker strength 5/5 sensory grossly intact and equal bilaterally - Psychiatric Exam Psychiatric exam: Normal Affect, Normal Mood - Skin Skin Exam: Dry, Intact, Normal Color, Warm Results - Vital Signs Recent Vital Signs: Last Vital Signs Temp 98.3 F 12/22/16 12:31 Pulse 95 H 12/22/16 12:31 Resp 18 12/22/16 12:31 BP 132/80 12/22/16 12:31 Pulse Ox 94 L 12/22/16 11:00 - Labs Result Diagrams: 12/22/16 07:45 12/22/16 07:45 Assessment & Plan - Assessment and Plan (Free Text) Assessment: This is a 76 yo M with PMH of MS (chronic R-sided muscle weakness), MT s/p 2 stents, hypothyroidism, chronic constipation on daily Miralax, hydrocele, COPD, HTN, HLD, s/p MT w/SAGAR x 2, and hearing loss bilaterally who presented to [facility] [place] 1 day after mechanical fall onto left side with intractable left flank and left chest pain. He was admitted for close monitoring and management of multiple rib fracture 2/2 traumatic mechanical fall. Plan: 1) Traumatic fall resulting in intractable chest pain -2/2 rib fractures vs ACS, want to rule out Pneumothorax/hemothorax -fall described as mechanical, with component 2/2 MS (right sided weakness at baseline, ?unstable gait) -CT chest notable for ribs fractures, left ribs 7-9, 7 and 8 mildly displaced, 9 non-displaced, no PE, no pneumothorax/hemothorax noted -Pain control with Dilaudid 1.5mg IVP q4h prn, morphine 2mg IVP q6h prn for breakthrough pain -Chest binder in place -Cardiac iso to monitor for ACS, will also monitor CPK to watch for possible rhabdo -Incentinve spirometer to prevent worsening atelectasis, avoid predisposing to pneumonia -Not actually on blood thinner, on Aspirin 324mg and Effient for antiplatelet due to 2 cardiac stents -Surgery consulted, appreciate all recs; recommends Anesthesia for possible nerve block, and Pulm consult, both in place -Out of bed to chair as tolerated -PT to assess, may require SANJAY after discharge 2) Hx MS with R-sided weakness -likely contributory to mechanical fall -continue home MS medications -PT -MS reported as stable and well managed, no need for Neuro consult at this time 3) Hypothyroid -continue home synthroid -TSH, Free T4, Total T3 ordered with tomorrow AM labs, f/u 4) Chronic constipation -likely due to home pain medication use (Percocet listed in home meds) -continue home Miralax -getting a more intensive pain regimen due to current injury, will likely need to increase constipation regimen for this admission, but will monitor on current regimen first 5) COPD -continue Xopenex and home inhalers, Pulmicort in place of home steroid inhaler not on formulary as per Pharmacy -Supplemental O2 as needed to maintain SaO2 > 88% -Pulm consulted, appreciate all recs 6) HTN -continue home lisinopril at 2.5mg PO daily (home dose was listed at 5mg, but patient reports was recently decreased to 2.5 by PMD) -will adjust as necessary, may experience upward BP fluctuations due to pain from fractures, but may also experience decreases due to strong pain regimen for fractures 7) HLD -Lipitor 40mg PO daily, heart-healthy soft diet 8) Hx MT s/p 2 stents -continue home ASA and Effient Dispo: Med/Surg obs, pending Anesthesia and Pulm assessment and input FEN: Soft Heart-healthy diet Access: Peripheral IV Consults: Anesthesia, Surgery, Pulm Ppx: Protonix for GI, SCDs for DVT (avoid AC in setting of traumatic fall and fractures) Patient seen, reviewed, and discussed with attending, Dr. Martel. Decision To Admit - Pt Status Changed To: Hospital Disposition Of: Observation - . Bed Request Type: Med/Surg <Cameron Martelmanuela B - Last Filed: 12/23/16 14:57> Results - Vital Signs Recent Vital Signs: Last Vital Signs Temp 98.0 F 12/23/16 07:27 Pulse 108 H 12/23/16 07:27 Resp 22 12/23/16 07:27 BP 135/75 12/23/16 07:27 Pulse Ox 90 L 12/23/16 07:27 - Labs Result Diagrams: 12/23/16 07:20 12/23/16 07:20 Labs: Laboratory Results - last 24 hr 12/22/16 12/23/16 12/23/16 20:50 07:20 07:20 WBC 21.3 H D RBC 4.44 Hgb 12.9 L Hct 40.0 L MCV 90.1 MCH 29.1 MCHC 32.3 RDW 15.1 H Plt Count 236 MPV 9.6 Gran % 68.2 H Lymph % (Auto) 21.4 L [place] % (Auto) 9.6 H Eos % (Auto) 0.5 L Baso % (Auto) 0.3 Gran # 14.50 H Lymph # 4.6 H [place] # 2.1 H Eos # 0.1 Baso # 0.07 PT INR APTT Sodium 136 Potassium 5.0 Chloride 102 Carbon Dioxide 24 Anion Gap 15 BUN 35 H Creatinine 1.6 H Est GFR ( Amer) 51 Est GFR (Non-Af Amer) 42 Random Glucose 113 H Calcium 9.5 Phosphorus 4.4 Magnesium 1.8 Total Bilirubin 1.4 H Direct Bilirubin AST 39 ALT 39 Alkaline Phosphatase 117 Lactate Dehydrogenase 524 648 Total Creatine Kinase 84 148 Troponin I 0.06 0.07 Total Protein 7.3 Albumin 4.2 Globulin 3.1 Albumin/Globulin Ratio 1.4 Free T4 Total T3 TSH 3rd Generation 12/23/16 12/23/16 12/23/16 07:20 08:15 09:27 WBC RBC Hgb Hct MCV MCH MCHC RDW Plt Count MPV Gran % Lymph % (Auto) [place] % (Auto) Eos % (Auto) Baso % (Auto) Gran # Lymph # [place] # Eos # Baso # PT 12.9 H INR 1.17 H APTT 27.6 Sodium Potassium Chloride Carbon Dioxide Anion Gap BUN Creatinine Est GFR ( Amer) Est GFR (Non-Af Amer) Random Glucose Calcium Phosphorus Magnesium Total Bilirubin Direct Bilirubin 0.7 H AST ALT Alkaline Phosphatase Lactate Dehydrogenase Total Creatine Kinase Troponin I Total Protein Albumin Globulin Albumin/Globulin Ratio Free T4 1.26 Total T3 1.53 TSH 3rd Generation 2.98 12/23/16 13:05 WBC RBC Hgb Hct MCV MCH MCHC RDW Plt Count MPV Gran % Lymph % (Auto) [place] % (Auto) Eos % (Auto) Baso % (Auto) Gran # Lymph # [place] # Eos # Baso # PT INR APTT Sodium Potassium Chloride Carbon Dioxide Anion Gap BUN Creatinine Est GFR ( Amer) Est GFR (Non-Af Amer) Random Glucose Calcium Phosphorus Magnesium Total Bilirubin Direct Bilirubin AST ALT Alkaline Phosphatase Lactate Dehydrogenase 560 Total Creatine Kinase 143 Troponin I 0.07 Total Protein Albumin Globulin Albumin/Globulin Ratio Free T4 Total T3 TSH 3rd Generation Attending/Attestation - Attestation I have personally seen and examined this patient.: Yes I have fully participated in the care of the patient.: Yes I have reviewed all pertinent clinical information: Yes Notes (Text): I have seen and examined the patient at bedside. Agree with the above note with the following additions/ exceptions: Briefly this is 76 year old male with history of MS with chronic right sided muscle weakness, MT s/p cardiac stent, hypothyroidism, chronic constipation on daily Miralax, hydrocele, COPD, former smoker, HTN, HLD, and hearing loss bilaterally who presented to [facility] [place] s/p mechanical fall and developed multiple rib fractures on the left side. CT chest reviewed. Chest binder in place. Will continue IV analgesics. Surgery consult appreciated. Continue incentive spirometer. PT eval ordered. Pulm and anesthesia consult pending. Upon discharge patient will follow up with Dr Negron. Dr Bianca Martel
[2016-12-22] MEDS ORDERED: Budesonide 0.5 mg/2 ml Inhal Susp UD IH SCH (20:00)
[2016-12-22 21:17] LABS: TROPONIN I 0.06 ng/mL
[2016-12-22] MEDS ORDERED: TEMAZEPAM 7.5 MG PO SCH (22:00)
[2016-12-23] MEDS ORDERED: Levalbuterol 0.63 MG/3 ML Inhal Soln UD IH STA (01:49)
[2016-12-23] MEDS ORDERED: guaiFENesin 200 mg/10 ml Syrup UD PO STA (01:50)
[2016-12-23] MEDS: HYDROmorphone 1 mg/ml ISec IVP PRN ×3 (02:51→15:10)
[2016-12-23] MEDS ORDERED: HYDROmorphone 2 mg/ml ISec IVP PRN ×2 (05:45→10:02)
[2016-12-23] MEDS: Morphine 2 mg/ml ISec IVP PRN (05:47)
[2016-12-23] MEDS: Pantoprazole 40 mg EC Tab PO SCH (05:54)
[2016-12-23] MEDS: Armodafinil 250 mg Tab PO SCH ×2 (06:51→23:31)
[2016-12-23] MEDS: Levalbuterol 0.63 MG/3 ML Inhal Soln UD IH PRN ×3 (07:34→19:59)
[2016-12-23 07:44] LABS: BASO # 0.07 K/mm3 (0.0-2.0); BASO % 0.3 % (0.0-3.0); EOS # 0.1 (0.0-0.7); EOS % 0.5 % (1.5-5.0); GRAN # 14.5 (1.4-6.5); GRAN % 68.2 % (50.0-68.0); LYMPH # 4.6 (1.2-3.4); LYMPH % 21.4 % (22.0-35.0); MEAN CELL VOLUME 90.1 fl (80.0-105.0); MEAN CORPUSCULAR HEMOGLOBIN 29.1 pg (25.0-35.0); MEAN CORPUSCULAR HGB CONC 32.3 g/dl (31.0-37.0); MEAN PLATELET VOLUME 9.6 fl (7.0-11.0); MONO # 2.1 (0.1-0.6); MONO % 9.6 % (1.0-6.0); RED CELL DISTRIBUTION WIDTH 15.1 % (11.5-14.5); WHITE BLOOD COUNT 21.3 10^3/ul (4.5-11.0)
--- NOTE | 2016-12-23 07:54 | CP.PCM.PCO ---
Physician Communication Note - Physician Communication Note Physician Communication Note: Pain uncontrolled-will change regimen. Surgery will follow.
[2016-12-23 08:04] LABS: ALB/GLOB RATIO 1.4 (1.1-1.8); BILIRUBIN,TOTAL 1.4 mg/dL (0.2-1.3); CALCIUM 9.5 mg/dL (8.4-10.5); MAGNESIUM 1.8 mg/dL (1.7-2.2); PHOSPHOROUS 4.4 mg/dL (2.5-4.5); TOTAL PROTEIN 7.3 g/dL (5.8-8.3)
[2016-12-23 08:05] LABS: TROPONIN I 0.07 ng/mL
[2016-12-23 08:11] LABS: FREE T4 1.26 ng/dL (0.78-2.19)
[2016-12-23 08:25] LABS: T3 1.53 ng/mL (0.97-1.69); THYROID STIMULATING HORMONE 2.98 mIU/mL (0.46-4.68)
[2016-12-23 09:07] LABS: INR 1.17 (0.93-1.08)
[2016-12-23 09:08] LABS: PARTIAL THROMBOPLASTIN TIME 27.6 Seconds (25.1-36.5)
[2016-12-23] MEDS ORDERED: Aspirin 325 mg EC Tablets PO SCH (10:00)
[2016-12-23] MEDS ORDERED: Non Formulary Medication (Multivit-Min/Fa/Lycopen/Lutein [Centrum Silver Tablet] 1 TAB) PO SCH (10:00)
[2016-12-23] MEDS ORDERED: FLUTICASONE FUROATE INH SCH (10:00)
[2016-12-23] MEDS ORDERED: VITAMIN B COMPLEX PO SCH (10:00)
[2016-12-23] MEDS ORDERED: POLYETHYLENE GLYCOL 3350 17 GM/Dose PACKET PO SCH ×2 (10:00)
--- NOTE | 2016-12-23 10:59 | RAD ---
HISTORY: s/p mech fall with L-rib fractures, f/u COMPARISON: Comparison is made to 03/17/2016 FINDINGS: LUNGS: Interval appearance of focal opacity at the left lower lung and right lower lung since the previous exam likely atelectasis or scar tissue. PLEURA: No significant pleural effusion identified, no pneumothorax apparent. CARDIOVASCULAR: Normal. OSSEOUS STRUCTURES: Left lower ribs fractures seen better in the previous CT dated 12/22/2016 VISUALIZED UPPER ABDOMEN: Normal. OTHER FINDINGS: None. IMPRESSION: New opacities at the lower lobes more prominent on the left may represent atelectasis.
--- NOTE | 2016-12-23 11:21 | CON ---
DATE: 12/23/2016 PULMONARY CONSULTATION The patient was seen and examined at bedside. History was obtained from the patient and Emergency Room record. HISTORY OF PRESENT ILLNESS: The patient came to the Emergency Room after experiencing a fall on the street according to him, his leg caught in uneven pavement and he fell striking his left side of his chest. Since the fall, he experienced progressive pain and also shortness of breath with painful cough and inability to raise secretions. The symptom onset was sudden and this happened 24 hours ago, associated symptoms of abrasion, ecchymosis, and left rib pain. PAST MEDICAL HISTORY: The patient is known to our service. 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 His past medical history is positive for chronic obstructive pulmonary disease, pulmonary fibrosis, and multiple sclerosis. SOCIAL HISTORY: He is a former smoker, nondrinker, never used illicit drugs. FAMILY HISTORY: Negative for inherited diseases. HOME MEDICATIONS: Include Singulair, atorvastatin, Remeron, Nexium, levothyroxine, lisinopril, Spiriva, Arnuity, and Nuvigil. REVIEW OF SYSTEMS: Was conducted by reviewing all sources. CONSTITUTIONAL: Negative. CARDIOVASCULAR: No complaints of chest pain anteriorly, only laterally where he fell. PULMONARY: See history of present illness. GI: No nausea, vomiting or diarrhea. : No dysuria or hematuria. MUSCULOSKELETAL: Complains typical of multiple sclerosis. The rest of the systems was reviewed and found to be negative. PHYSICAL EXAMINATION VITAL SIGNS: His temperature is 97, blood pressure is 150/80, respirations are 20, and pulse oximetry is 94% on nasal cannula. RESPIRATORY: Decreased breath sounds. CARDIOVASCULAR: Regular rhythm. S1 and S2, without murmur, gallop, or rub. ABDOMEN: Soft. Bowel sounds normoactive. : Within normal limits. EXTREMITIES: Reveal no clubbing, cyanosis or edema. No Homans sign is noted. NEUROLOGIC: No focal findings LYMPHATIC: Within normal limits. SKIN: Dry; intact. I examined the chest x-ray, which demonstrate minor atelectatic changes at both lungs bases, no acute infiltrate. I also examined the CT scan of the chest, which revealed nondisplaced fractures in 7th to 9th ribs on the left, atelectatic changes at both bases. No effusions and no infiltrates. LABORATORY DATA: His INR is 1.1. WBC 13.7, hemoglobin 12.7, granulocytes 8.38, and lymphocytes 3.8. ASSESSMENT: 1. Contusion of left chest. 2. Rib fractures 7th to 9th on left. 3. Chronic obstructive pulmonary disease. 4. Multiple sclerosis. PLAN: The patient is wrapped with tight wrapping around the chest, which helps his pain. He is able to bring up secretions better now with aerosol therapy, Mucomyst was added to the nebulizer treatment after our discussion with Dr. Martel, the primary. He will continue with Montelukast. We will continue with DuoNeb. His regular Spiriva and Arnuity will be restarted upon discharge. His condition is guarded, but not critical. Merlin Flaherty MD MTDD
[2016-12-23] MEDS: Multivitamin Therapeutic Tab PO SCH (11:22)
[2016-12-23] MEDS: Levothyroxine 175 MCG TAB PO SCH (11:23)
[2016-12-23] MEDS: levoFLOXacin 750 mg in D5W 750 MG/150 ML BAG IVPB SCH (11:24)
[2016-12-23] MEDS: POLYETHYLENE GLYCOL 3350 17 GM/Dose PACKET PO SCH ×2 (11:26→18:30)
[2016-12-23] MEDS: Lidocaine 5% Patch TD SCH (11:29)
[2016-12-23] MEDS: Aspirin 325 mg EC Tablets PO SCH (11:30)
[2016-12-23] MEDS: GUAIFENESIN PO SCH (11:31)
[2016-12-23] MEDS: OMEGA PO SCH (11:32)
[2016-12-23] MEDS: Non Formulary Medication (Multivit-Min/Fa/Lycopen/Lutein [Centrum Silver Tablet] 1 TAB) PO SCH (11:32)
[2016-12-23] MEDS: FISH OIL PO SCH (11:32)
[2016-12-23] MEDS: [UNRECOGNIZED DRUG - OTHER] PO SCH (11:32)
[2016-12-23] MEDS: FATTY ACIDS PO SCH (11:32)
[2016-12-23] MEDS: Tiotropium 18 mcg Cap For Inhalation IH SCH (11:34)
[2016-12-23] MEDS: Acetylcysteine 20% Inhal Soln (4ml) IH SCH ×2 (13:14→19:59)
[2016-12-23 13:36] LABS: TROPONIN I 0.07 ng/mL
[2016-12-23] MEDS: guaiFENesin 200 mg/10 ml Syrup UD PO PRN ×2 (15:10→22:19)
[2016-12-23] MEDS: Oxycodone/Acetaminophen 5/325 mg Tab PO PRN ×2 (16:44→21:23)
--- NOTE | 2016-12-23 20:35 | CP.PCM.PN ---
<Gurdeep Mulligan - Last Filed: 12/23/16 20:30> Subjective - Date & Time of Evaluation Date of Evaluation: 12/23/16 Time of Evaluation: 07:45 - Subjective Subjective: IM Progress Note for Hospitalist Service Patient seen and examined at bedside. Sitting up in bed without overt difficulty, and does not appear in acute distress, but continuously requesting that his Dilaudid be increased. Reports poor sleep overnight, and cough with thick dark-green/brown mucous. Denies hemoptysis. Denies nausea, emesis, diarrhea, new focal weakness, or focal paresthesia. Objective - Vital Signs/Intake and Output Vital Signs (last 24 hours): Temp Pulse Resp BP Pulse Ox 99.4 F 118 H 20 102/60 81 L 12/23/16 16:00 12/23/16 16:00 12/23/16 16:00 12/23/16 16:00 12/23/16 16:00 Intake and Output: 12/23/16 12/24/16 18:59 06:59 Intake Total 600 Output Total 600 Balance 0 - Medications Medications: Current Medications Acetylcysteine (Acetylcysteine 20%) [id number] [facility] Last Admin: 12/23/16 19:59 Dose: 4 ml Armodafinil (Nuvigil 250 Mg Tab) [address] [facility] Last Admin: 12/23/16 06:51 Dose: Not Given Ascorbic Acid (Vitamin C 500 Mg Tab) 1,[address] [facility] Last Admin: 12/23/16 11:23 Dose: 1,000 mg Aspirin (Ecotrin) [address] [facility] Last Admin: 12/23/16 11:30 Dose: 325 mg Atorvastatin Calcium (Lipitor) [address] [facility] Last Admin: 12/23/16 18:30 Dose: 40 mg Budesonide (Pulmicort Respules) 0.[id number] [facility] Bupropion HCl (Wellbutrin) [address] [facility] Last Admin: 12/23/16 11:23 Dose: 100 mg Cholecalciferol (Vitamin D) 1,[address] [facility] Last Admin: 12/23/16 11:23 Dose: 1,000 iu Cyclobenzaprine HCl (Flexeril) [address] [facility] Last Admin: 12/23/16 18:30 Dose: 5 mg Gabapentin (Neurontin) 100 mg PO BID [facility] PRN Reason: Protocol Last Admin: 12/23/16 18:30 Dose: 100 mg Guaifenesin (Robitussin) 200 mg PO Q4H PRN PRN Reason: Cough and congestion Last Admin: 12/23/16 15:10 Dose: 200 mg Hydromorphone HCl (Dilaudid) 1.5 mg IVP Q4H PRN PRN Reason: Pain, moderate (4-7) Levofloxacin/Dextrose (Levaquin 750mg) 750 mg in 150 mls @ 100 mls/hr IVPB DAILY [facility] Last Admin: 12/23/16 11:24 Dose: 100 mls/hr Sodium Chloride (Sodium Chloride 0.9%) 1,000 mls @ 100 mls/hr IV .Q10H [facility] Levalbuterol HCl (Xopenex) 0.63 mg IH [id number] PRN PRN Reason: Shortness of Breath Last Admin: 12/23/16 19:59 Dose: 0.63 mg Levothyroxine Sodium (Synthroid) 175 mcg PO DAILY [facility] Last Admin: 12/23/16 11:23 Dose: 175 mcg Lidocaine (Lidoderm) [address] [facility] Last Admin: 12/23/16 11:29 Dose: 1 ea Lisinopril (Zestril) 2.[address] [facility] Last Admin: 12/23/16 11:23 Dose: 2.5 mg Mefloquine HCl (Lariam) 250 mg PO MON [facility] Mirtazapine (Remeron) [address] [facility] Last Admin: 12/22/16 22:08 Dose: 15 mg Montelukast Sodium (Singulair) [address] [facility] Last Admin: 12/22/16 22:08 Dose: 10 mg Multivitamins (Thera Tab) 1 tab PO DAILY [facility] Last Admin: 12/23/16 11:22 Dose: 1 tab Non-Formulary Medication (Fluticasone Furoate [Arnuity Ellipta]) [address] [facility] Last Admin: 12/23/16 11:31 Dose: Not Given Non-Formulary Medication (Guaifenesin [Mucus Relief]) 1 tab PO DAILY [facility] Last Admin: 12/23/16 11:31 Dose: Not Given Non-Formulary Medication (Multivit-Min/Fa/Lycopen/Lutein [Centrum Silver Tablet] ) [address] [facility] Last Admin: 12/23/16 11:32 Dose: Not Given Non-Formulary Medication ([place]-3 Fatty Acids/Fish Oil [[place] 3 Fish Oil Softgel ]) [address] [facility] Last Admin: 12/23/16 11:32 Dose: Not Given Oxycodone/Acetaminophen (Percocet 5/325 Mg Tab) 1 tab PO Q4H PRN PRN Reason: Pain, Mild (1-3) Stop: 12/26/16 10:01 Last Admin: 12/23/16 16:44 Dose: 1 tab Pantoprazole Sodium (Protonix Ec Tab) [address] [facility] Last Admin: 12/23/16 05:54 Dose: 40 mg Polyethylene Glycol (Miralax) [address] [facility] Last Admin: 12/23/16 18:30 Dose: 17 gm Prasugrel (Effient) [address] [facility] Last Admin: 12/23/16 11:23 Dose: 10 mg Tiotropium [place] (Spiriva) [address] [facility] Last Admin: 12/23/16 11:34 Dose: 18 mcg Venlafaxine HCl (Effexor) [address] [facility] Last Admin: 12/23/16 11:23 Dose: 75 mg - Labs Labs: 12/23/16 07:20 12/23/16 07:20 PT 12.9 SECONDS (9.4-12.5) H 12/23/16 08:15 INR 1.17 (0.93-1.08) H 12/23/16 08:15 APTT 27.6 Seconds (25.1-36.5) 12/23/16 08:15 - Additional Findings Additional findings: - Constitutional Appears: Non-toxic, No Acute Distress (at rest), In Acute Distress (acute distress from pain with any coughing or movement involving the trunk) - Head Exam Head Exam: ATRAUMATIC, NORMAL INSPECTION, NORMOCEPHALIC - Eye Exam Eye Exam: EOMI, Normal appearance, PERRL. absent: Conjunctival injection, Scleral icterus Pupil Exam: NORMAL ACCOMODATION, PERRL. absent: Fixed, Irregular, Unequal - ENT Exam ENT Exam: Mucous Membranes Moist - Neck Exam Neck exam: Positive for: Normal Inspection. Negative for: Tenderness - Respiratory Exam Respiratory Exam: Chest Wall Tenderness (moderately tender to palpation along left-chest wall and side), Decreased Breath Sounds (mildly decreased breath sounds in all zimmerman), Clear to Auscultation Bilateral, Prolonged Expiratory Phase, NORMAL BREATHING PATTERN. absent: Accessory Muscle Use, Rales, Rhonchi, Wheezes Additional comments: wearing chest binder, container with thick dark-green/brown mucous - Cardiovascular Exam Cardiovascular Exam: REGULAR RHYTHM, RRR, +S1, +S2. absent: Bradycardia, Tachycardia, Irregular Rhythm, JVD, +S4 - GI/Abdominal Exam GI & Abdominal Exam: Normal Bowel Sounds, Soft. absent: Distended, Firm, Guarding, Rigid, Tenderness - Extremities Exam Extremities exam: Positive for: normal inspection, pedal pulses present. Negative for: calf tenderness, joint swelling, pedal edema - Neurological Exam Neurological exam: Alert, CN II-XII Intact, Oriented x3 mild R-sided weakness, RUE and RLE motor and pre fabricator strength 4/5, LUE and LLE motor and pre fabricator strength 5/5 sensory grossly intact and equal bilaterally - Psychiatric Exam Psychiatric exam: Normal Affect, Normal Mood - Skin Skin Exam: Dry, Intact, Normal Color, Warm Assessment and Plan - Assessment and Plan (Free Text) Assessment: This is a 76 yo M with PMH of MS (chronic R-sided muscle weakness), VA s/p 2 stents, hypothyroidism, chronic constipation on daily Miralax, hydrocele, COPD, HTN, HLD, s/p VA w/SAGAR x 2, and hearing loss bilaterally who presented to [facility] 1 day after mechanical fall onto left side with intractable left flank and left chest pain. He was admitted for close monitoring and management of multiple rib fracture 2/2 traumatic mechanical fall. Surgical service is following as well. Plan: 1) Traumatic fall resulting in intractable chest pain -2/2 rib fractures vs ACS, want to rule out Pneumothorax/hemothorax -fall described as mechanical, with component 2/2 MS (right sided weakness at baseline, ?unstable gait) -CT chest notable for ribs fractures, left ribs 7-9, 7 and 8 mildly displaced, 9 non-displaced, no PE, no pneumothorax/hemothorax noted -Pain control with Dilaudid 1.5mg IVP q4h prn, morphine 2mg IVP q6h prn for breakthrough pain; regimen to be adjusted as per Surgical service, planning to decrease dilaudid and add Lidoderm patch/Flexeril/Percocet, pending possible nerve block by Anesthesia -Chest binder in place -Trops 0.06, 0.07, 0.07, trops in march 2016 0.06 and 0.09, appears to be at baseline -Incentinve spirometer to prevent worsening atelectasis, avoid predisposing to pneumonia -Not actually on blood thinner, on Aspirin 324mg and Effient for antiplatelet due to 2 cardiac stents -Pulm following; agrees with mucomyst added to nebulizers, pt to resume home regimen of inhalers on discharge -Out of bed to chair as tolerated -PT to assess, may require SANJAY after discharge 2) Hx MS with R-sided weakness -likely contributory to mechanical fall -continue home MS medications -PT -MS reported as stable and well managed, no need for Neuro consult at this time 3) Hypothyroid -continue home synthroid -TSH, Free T4, Total T3 wnl 4) Chronic constipation -likely due to home pain medication use (Percocet listed in home meds) -continue home Miralax -getting a more intensive pain regimen due to current injury, will likely need to increase constipation regimen for this admission, but will monitor on current regimen first 5) COPD -continue Xopenex and home inhalers, Pulmicort in place of home steroid inhaler not on formulary as per Pharmacy -Supplemental O2 as needed to maintain SaO2 > 88% -Pulm consulted, appreciate all recs 6) HTN -continue home lisinopril at 2.5mg PO daily -will adjust as necessary, may experience upward BP fluctuations due to pain from fractures, but may also experience decreases due to strong pain regimen for fractures 7) HLD -Lipitor 40mg PO daily, heart-healthy soft diet 8) Hx VA s/p 2 stents -continue home ASA and Effient Dispo: Med/Surg obs, pending Anesthesia and Pulm assessment and input FEN: Soft Heart-healthy diet Access: Peripheral IV Consults: Anesthesia, Surgery, Pulm Ppx: Protonix for GI, SCDs for DVT (avoid AC in setting of traumatic fall and fractures) Patient seen, reviewed, and discussed with attending, Dr. Martel. <Bianca Martel - Last Filed: 12/31/16 13:32> Objective - Vital Signs/Intake and Output Vital Signs (last 24 hours): Temp Pulse Resp BP Pulse Ox 98.6 F 77 22 120/72 92 L 12/28/16 07:30 12/28/16 09:56 12/28/16 07:30 12/28/16 09:56 12/28/16 07:30 - Labs Labs: 12/27/16 06:40 12/28/16 07:00 PT 15.1 SECONDS (9.4-12.5) H 12/24/16 06:40 INR 1.36 (0.93-1.08) H 12/24/16 06:40 APTT 29.1 Seconds (25.1-36.5) 12/24/16 06:40 Attending/Attestation - Attestation I have personally seen and examined this patient.: Yes I have fully participated in the care of the patient.: Yes I have reviewed all pertinent clinical information, including history, physical exam and plan: Yes Notes (Text): I have seen and examined the patient at bedside. Agree with the above note with the following additions/ exceptions: Briefly this is 76 year old male with history of MS with chronic right sided muscle weakness, VA s/p cardiac stent, hypothyroidism, chronic constipation on daily Miralax, hydrocele, COPD, former smoker, HTN, HLD, and hearing loss bilaterally who presented to [facility] s/p mechanical fall and developed multiple rib fractures on the left side. CT chest reviewed. Chest binder in place. Will continue IV analgesics. Patient is complaining of thick mucous production. Start antibiotics. Continue incentive spirometer. Surgery consult appreciated. Continue incentive spirometer. PT eval pending. Pulm eval appreciated. Anesthesia consult pending. Upon discharge patient will follow up with Dr Negron. Dr Bianca Martel
[2016-12-24] MEDS: guaiFENesin 200 mg/10 ml Syrup UD PO PRN ×2 (02:12→09:34)
[2016-12-24] MEDS: Acetylcysteine 20% Inhal Soln (4ml) IH SCH ×4 (02:15→22:58)
[2016-12-24] MEDS: Sodium Chloride 0.9% 1,000 ML IV SCH ×3 (03:25→16:24)
[2016-12-24] MEDS: Oxycodone/Acetaminophen 5/325 mg Tab PO PRN ×2 (04:46→17:26)
[2016-12-24] MEDS: Levalbuterol 0.63 MG/3 ML Inhal Soln UD IH PRN ×2 (04:50→16:20)
[2016-12-24] MEDS: Pantoprazole 40 mg EC Tab PO SCH (05:16)
[2016-12-24 07:20] LABS: BASO # 0.02 K/mm3 (0.0-2.0); BASO % 0.1 % (0.0-3.0); EOS % 0.1 % (1.5-5.0); GRAN # 13.12 (1.4-6.5); GRAN % 77.4 % (50.0-68.0); HEMATOCRIT 33.2 % (42.0-52.0); LYMPH # 2.6 (1.2-3.4); LYMPH % 15.4 % (22.0-35.0); MEAN CORPUSCULAR HGB CONC 32.5 g/dl (31.0-37.0); MEAN PLATELET VOLUME 9.4 fl (7.0-11.0); MONO # 1.2 (0.1-0.6); RED CELL DISTRIBUTION WIDTH 15.1 % (11.5-14.5)
[2016-12-24] MEDS: Levalbuterol 0.63 MG/3 ML Inhal Soln UD IH SCH ×3 (07:23→22:59)
[2016-12-24 07:25] LABS: INR 1.36 (0.93-1.08); PARTIAL THROMBOPLASTIN TIME 29.1 Seconds (25.1-36.5)
[2016-12-24 07:28] LABS: ALB/GLOB RATIO 1.1 (1.1-1.8); BILIRUBIN,TOTAL 1.2 mg/dL (0.2-1.3); CALCIUM 9.2 mg/dL (8.4-10.5); MAGNESIUM 1.7 mg/dL (1.7-2.2); PHOSPHOROUS 3.8 mg/dL (2.5-4.5); POTASSIUM 4.4 mmol/L (3.6-5.0); TOTAL PROTEIN 6.2 g/dL (5.8-8.3)
--- NOTE | 2016-12-24 08:03 | PN ---
PULMONARY PROGRESS NOTE SUBJECTIVE: The patient appears comfortable at rest. He is not short of breath. It is very painful for him to move. PHYSICAL EXAMINATION: VITAL SIGNS: Last temperature recorded is 99.4, pulse this morning 88, respiratory rate 18/20, blood pressure 102/60. Oxygen saturation on nasal cannula is 94%. HEENT: Normocephalic, atraumatic. NECK: No JVD. CARDIOVASCULAR: Positive S1, S2. No S3 gallop. LUNGS: Decreased breath sounds at the bases. Mild loose bilateral rhonchi. No wheezing. EXTREMITIES: No clubbing, cyanosis or edema. Calves are nontender to palpation. GI: Abdomen is soft, nontender and nondistended. Bowel sounds are positive. SKIN: No acute rash. NEUROLOGIC: Limited at the present time. IMPRESSION: 1. Multiple left-sided rib fractures 2. Status post fall at home. 3. Chronic obstructive pulmonary disease. 4. Mild bronchospasm. 5. Mild basal atelectasis. 6. Multiple sclerosis. PLAN: The patient appears comfortable at rest. He is not short of breath. As above, it is very painful for him to move. On physical exam, there is mild bronchospasm noted. In addition, there is a mild increase in the alveolar-arterial gradient. I will continue with the Xopenex treatments, but change to every 6 hours [id number]. I will also continue with the Spiriva and budesonide. The patient remains on antibiotic therapy. There are no temperatures noted. The leukocytosis is improved/decreased. Surgical evaluation with Dr. Choi is also noted. As above, the patient experiences a significant amount of pain with any movement. I would continue with the incentive spirometry, and have the patient out of bed as much as possible. Repeat a.m. labs are pending. Clinical status of the patient is improved-compared to the initial presentation. However, his overall status does remain guarded. I will discuss the above with the attending physician this morning. Amanuel Riggins MD [facility]
--- NOTE | 2016-12-24 08:12 | CP.PCM.PN ---
Subjective - Date & Time of Evaluation Date of Evaluation: 12/24/16 Time of Evaluation: 08:07 - Subjective Subjective: PGY1 General Surgery Note for Dr. Choi Patient seen and examined at bedside this morning. No acute events overnight night. Patient states he is still experiencing some pain, but he reports that he was able to sleep last night. He reports that he has been coughing up white colored phlegm. He is tolerating his diet. Denies fevers, chills, nausea, vomiting, diarrhea, constipation or shortness of breath (outside of pain with breathing). Objective - Vital Signs/Intake and Output Vital Signs (last 24 hours): Temp Pulse Resp BP Pulse Ox 99.4 F 118 H 20 102/60 81 L 12/23/16 16:00 12/23/16 16:00 12/23/16 22:00 12/23/16 16:00 12/23/16 16:00 Intake and Output: 12/24/16 12/24/16 06:59 18:59 Intake Total 580 Balance 580 - Medications Medications: Current Medications Acetylcysteine (Acetylcysteine 20%) 4 ml IH [id number] [facility] Last Admin: 12/24/16 07:23 Dose: 4 ml Armodafinil (Nuvigil 250 Mg Tab) 250 mg PO HS [facility] Last Admin: 12/23/16 23:31 Dose: Not Given Ascorbic Acid (Vitamin C 500 Mg Tab) 1,000 mg PO QAM [facility] Last Admin: 12/23/16 11:23 Dose: 1,000 mg Aspirin (Ecotrin) 325 mg PO DAILY [facility] Last Admin: 12/23/16 11:30 Dose: 325 mg Atorvastatin Calcium (Lipitor) 40 mg PO DIN [facility] Last Admin: 12/23/16 18:30 Dose: 40 mg Budesonide (Pulmicort Respules) 0.5 mg IH [id number] [facility] Bupropion HCl (Wellbutrin) 100 mg PO DAILY [facility] Last Admin: 12/23/16 11:23 Dose: 100 mg Cholecalciferol (Vitamin D) 1,000 iu PO DAILY [facility] Last Admin: 12/23/16 11:23 Dose: 1,000 iu Cyclobenzaprine HCl (Flexeril) 5 mg PO TID [facility] Last Admin: 12/23/16 18:30 Dose: 5 mg Gabapentin (Neurontin) 100 mg PO BID [facility] PRN Reason: Protocol Last Admin: 12/23/16 18:30 Dose: 100 mg Guaifenesin (Robitussin) 200 mg PO Q4H PRN PRN Reason: Cough and congestion Last Admin: 12/24/16 02:12 Dose: 200 mg Hydromorphone HCl (Dilaudid) 1.5 mg IVP Q4H PRN PRN Reason: Pain, moderate (4-7) Levofloxacin/Dextrose (Levaquin 750mg) 750 mg in 150 mls @ 100 mls/hr IVPB DAILY [facility] Last Admin: 12/23/16 11:24 Dose: 100 mls/hr Sodium Chloride (Sodium Chloride 0.9%) 1,000 mls @ 100 mls/hr IV .Q10H [facility] Last Admin: 12/24/16 03:25 Dose: 100 mls/hr Levalbuterol HCl (Xopenex) 0.63 mg IH [id number] [facility] Last Admin: 12/24/16 07:23 Dose: 0.63 mg Levalbuterol HCl (Xopenex) 0.63 mg IH Q2 PRN PRN Reason: Shortness of Breath Levothyroxine Sodium (Synthroid) 175 mcg PO DAILY [facility] Last Admin: 12/23/16 11:23 Dose: 175 mcg Lidocaine (Lidoderm) 1 ea TD DAILY [facility] Last Admin: 12/23/16 11:29 Dose: 1 ea Lisinopril (Zestril) 2.5 mg PO DAILY [facility] Last Admin: 12/23/16 11:23 Dose: 2.5 mg Mefloquine HCl (Lariam) 250 mg PO MON [facility] Mirtazapine (Remeron) 15 mg PO HS [facility] Last Admin: 12/23/16 22:19 Dose: 15 mg Montelukast Sodium (Singulair) 10 mg PO HS [facility] Last Admin: 12/23/16 22:19 Dose: 10 mg Multivitamins (Thera Tab) 1 tab PO DAILY [facility] Last Admin: 12/23/16 11:22 Dose: 1 tab Non-Formulary Medication (Guaifenesin [Mucus Relief]) 1 tab PO DAILY [facility] Last Admin: 12/23/16 11:31 Dose: Not Given Non-Formulary Medication (Multivit-Min/Fa/Lycopen/Lutein [Centrum Silver Tablet] ) 1 tab PO DAILY [facility] Last Admin: 12/23/16 11:32 Dose: Not Given Non-Formulary Medication ([place]-3 Fatty Acids/Fish Oil [[place] 3 Fish Oil Softgel ]) 300 mg PO DAILY [facility] Last Admin: 12/23/16 11:32 Dose: Not Given Oxycodone/Acetaminophen (Percocet 5/325 Mg Tab) 1 tab PO Q4H PRN PRN Reason: Pain, Mild (1-3) Stop: 12/26/16 10:01 Last Admin: 12/24/16 04:46 Dose: 1 tab Pantoprazole Sodium (Protonix Ec Tab) 40 mg PO 0600 [facility] Last Admin: 12/24/16 05:16 Dose: 40 mg Polyethylene Glycol (Miralax) 17 gm PO BID [facility] Last Admin: 12/23/16 18:30 Dose: 17 gm Prasugrel (Effient) 10 mg PO DAILY [facility] Last Admin: 12/23/16 11:23 Dose: 10 mg Tiotropium [place] (Spiriva) 18 mcg IH DAILY [facility] Last Admin: 12/23/16 11:34 Dose: 18 mcg Venlafaxine HCl (Effexor) 75 mg PO DAILY [facility] Last Admin: 12/23/16 11:23 Dose: 75 mg - Labs Labs: 12/24/16 06:40 12/24/16 06:40 PT 15.1 SECONDS (9.4-12.5) H 12/24/16 06:40 INR 1.36 (0.93-1.08) H 12/24/16 06:40 APTT 29.1 Seconds (25.1-36.5) 12/24/16 06:40 - Constitutional Appears: Non-toxic, No Acute Distress - Head Exam Head Exam: ATRAUMATIC, NORMOCEPHALIC - Eye Exam Eye Exam: EOMI, Normal appearance. absent: Scleral icterus - ENT Exam ENT Exam: Mucous Membranes Moist - Respiratory Exam Respiratory Exam: Chest Wall Tenderness (left sided), NORMAL BREATHING PATTERN. absent: Accessory Muscle Use, Respiratory Distress - Cardiovascular Exam Cardiovascular Exam: REGULAR RHYTHM - GI/Abdominal Exam GI & Abdominal Exam: Soft. absent: Distended, Firm, Guarding, Rigid, Tenderness - Extremities Exam Additional comments: Left knee with dressings in place - c/d/i; left elbow with dressing and kerlix in place - c/d/i - Neurological Exam Neurological Exam: Alert, Awake, Oriented x3 - Psychiatric Exam Psychiatric exam: Normal Affect, Normal Mood - Skin Skin Exam: Dry, Warm Additional comments: ecchymoses of different stages of healing throughout body, consistent with mechanical fall Assessment and Plan - Assessment and Plan (Free Text) Assessment: 76M w/fractures of L ribs 7-9 s/p mechanical fall consulted for Left thorax pain - pt currently stable Plan: Pain control Incentive spirometry pulmonary toilet Anesthesia for local nerve block to L ribs 7-9 Pulm consult OOBTC further management as per primary team Will discuss with Dr. Jimbo Ayoub Larry PGY1
[2016-12-24] MEDS: Aspirin 325 mg EC Tablets PO SCH (09:31)
[2016-12-24] MEDS: GUAIFENESIN PO SCH (09:32)
[2016-12-24] MEDS: levoFLOXacin 750 mg in D5W 750 MG/150 ML BAG IVPB SCH (09:32)
[2016-12-24] MEDS: Non Formulary Medication (Multivit-Min/Fa/Lycopen/Lutein [Centrum Silver Tablet] 1 TAB) PO SCH (09:33)
[2016-12-24] MEDS: POLYETHYLENE GLYCOL 3350 17 GM/Dose PACKET PO SCH ×2 (09:33→17:25)
[2016-12-24] MEDS: Lidocaine 5% Patch TD SCH (09:33)
[2016-12-24] MEDS: [UNRECOGNIZED DRUG - OTHER] PO SCH (09:34)
[2016-12-24] MEDS: FISH OIL PO SCH (09:34)
[2016-12-24] MEDS: OMEGA PO SCH (09:34)
[2016-12-24] MEDS: FATTY ACIDS PO SCH (09:34)
[2016-12-24] MEDS: Tiotropium 18 mcg Cap For Inhalation IH SCH (09:35)
[2016-12-24] MEDS: Multivitamin Therapeutic Tab PO SCH (09:35)
[2016-12-24] MEDS: Levothyroxine 175 MCG TAB PO SCH (09:35)
--- NOTE | 2016-12-24 09:37 | RAD ---
HISTORY: f/u, left rib fx and LLL opacity COMPARISON: 12/23/2016. FINDINGS: LUNGS: There is interval development of airspace disease in the right lower lobe. There is persistent airspace disease in the left lower lobe. PLEURA: No significant pleural effusion identified, no pneumothorax apparent. CARDIOVASCULAR: Normal. OSSEOUS STRUCTURES: Stable. VISUALIZED UPPER ABDOMEN: Normal. OTHER FINDINGS: None. IMPRESSION: Airspace disease in both lower lobes, more confluent in the right lower lobe. Although findings could represent subsegmental atelectasis superimposed pneumonia cannot be excluded. Follow-up is advised.
[2016-12-24] MEDS: HYDROmorphone 1 mg/ml ISec IVP PRN ×3 (09:49→21:35)
--- NOTE | 2016-12-24 10:42 | CP.PCM.PN ---
Addendum entered and electronically signed by Briseida Anderson DO 12/24/16 20:13: Anesthesia evaluated patient regarding nerve blocks to manage pain and upon discussion with pain management, Dr. Mcdermott, recommendation is Neurontin, Percocet , and Lidocaine patch. Contact for Dr. Mcdermott and Dr. Solitario at [facility] as follows: [phone] Original Note: <Briseida Anderson - Last Filed: 12/24/16 20:02> Subjective - Date & Time of Evaluation Date of Evaluation: 12/24/16 Time of Evaluation: 07:30 - Subjective Subjective: PGY2 Medicine note for Dr. Hitchcock Patient seen and examined at bedside. No acute events overnight as per nursing. Patient reports pain on left side especially with coughing which he rates 9/10 in intensity. Binder is in place. He is using IS regularly and is eager to ambulate with PT. Patient is moving from bed to chair with assistance. Patient denies fever, chills, headache, dizziness, chest pain, palpitations, abd pain, nausea, vomiting, bladder complaints, pain/swelling in his legs bilaterally. He is aware of contusion on left hip. He admits to constipation and requested something for his bowel regimen in addition to Miralax. Objective - Vital Signs/Intake and Output Vital Signs (last 24 hours): Temp Pulse Resp BP Pulse Ox 98.2 F 114 H 18 113/71 90 L 12/24/16 08:15 12/24/16 09:35 12/24/16 08:15 12/24/16 09:35 12/24/16 08:15 Intake and Output: 12/24/16 12/24/16 06:59 18:59 Intake Total 580 1300 Output Total 200 Balance 580 1100 - Medications Medications: Current Medications Acetylcysteine (Acetylcysteine 20%) 4 ml IH [id number] [facility] Last Admin: 12/24/16 07:23 Dose: 4 ml Armodafinil (Nuvigil 250 Mg Tab) 250 mg PO HS [facility] Last Admin: 12/23/16 23:31 Dose: Not Given Ascorbic Acid (Vitamin C 500 Mg Tab) 1,000 mg PO QAM [facility] Last Admin: 12/24/16 09:35 Dose: 1,000 mg Aspirin (Ecotrin) 325 mg PO DAILY [facility] Last Admin: 12/24/16 09:31 Dose: 325 mg Atorvastatin Calcium (Lipitor) 40 mg PO DIN [facility] Last Admin: 12/23/16 18:30 Dose: 40 mg Budesonide (Pulmicort Respules) 0.5 mg IH [id number] [facility] Bupropion HCl (Wellbutrin) 100 mg PO DAILY [facility] Last Admin: 12/24/16 09:35 Dose: 100 mg Cholecalciferol (Vitamin D) 1,000 iu PO DAILY [facility] Last Admin: 12/24/16 09:35 Dose: 1,000 iu Cyclobenzaprine HCl (Flexeril) 5 mg PO TID [facility] Last Admin: 12/24/16 09:32 Dose: 5 mg Docusate Sodium (Colace) 100 mg PO TID [facility] Gabapentin (Neurontin) 100 mg PO BID [facility] PRN Reason: Protocol Last Admin: 12/24/16 09:34 Dose: 100 mg Guaifenesin (Robitussin) 200 mg PO Q4H PRN PRN Reason: Cough and congestion Last Admin: 12/24/16 09:34 Dose: 200 mg Hydromorphone HCl (Dilaudid) 1.5 mg IVP Q4H PRN PRN Reason: Pain, moderate (4-7) Last Admin: 12/24/16 09:49 Dose: 1.5 mg Levofloxacin/Dextrose (Levaquin 750mg) 750 mg in 150 mls @ 100 mls/hr IVPB DAILY [facility] Last Admin: 12/24/16 09:32 Dose: 100 mls/hr Sodium Chloride (Sodium Chloride 0.9%) 1,000 mls @ 100 mls/hr IV .Q10H [facility] Last Admin: 12/24/16 03:25 Dose: 100 mls/hr Levalbuterol HCl (Xopenex) 0.63 mg IH [id number] [facility] Last Admin: 12/24/16 07:23 Dose: 0.63 mg Levalbuterol HCl (Xopenex) 0.63 mg IH Q2 PRN PRN Reason: Shortness of Breath Levothyroxine Sodium (Synthroid) 175 mcg PO DAILY [facility] Last Admin: 12/24/16 09:35 Dose: 175 mcg Lidocaine (Lidoderm) 1 ea TD DAILY [facility] Last Admin: 12/24/16 09:33 Dose: 1 ea Lisinopril (Zestril) 2.5 mg PO DAILY [facility] Last Admin: 12/24/16 09:35 Dose: 2.5 mg Mefloquine HCl (Lariam) 250 mg PO MON [facility] Last Admin: 12/24/16 10:13 Dose: Not Given Mirtazapine (Remeron) 15 mg PO HS [facility] Last Admin: 12/23/16 22:19 Dose: 15 mg Montelukast Sodium (Singulair) 10 mg PO HS [facility] Last Admin: 12/23/16 22:19 Dose: 10 mg Multivitamins (Thera Tab) 1 tab PO DAILY [facility] Last Admin: 12/24/16 09:35 Dose: 1 tab Non-Formulary Medication (Guaifenesin [Mucus Relief]) 1 tab PO DAILY [facility] Last Admin: 12/24/16 09:32 Dose: Not Given Non-Formulary Medication (Multivit-Min/Fa/Lycopen/Lutein [Centrum Silver Tablet] ) 1 tab PO DAILY [facility] Last Admin: 12/24/16 09:33 Dose: Not Given Non-Formulary Medication ([place]-3 Fatty Acids/Fish Oil [[place] 3 Fish Oil Softgel ]) 300 mg PO DAILY [facility] Last Admin: 12/24/16 09:34 Dose: Not Given Oxycodone/Acetaminophen (Percocet 5/325 Mg Tab) 1 tab PO Q4H PRN PRN Reason: Pain, Mild (1-3) Stop: 12/26/16 10:01 Last Admin: 12/24/16 04:46 Dose: 1 tab Pantoprazole Sodium (Protonix Ec Tab) 40 mg PO 0600 [facility] Last Admin: 12/24/16 05:16 Dose: 40 mg Polyethylene Glycol (Miralax) 17 gm PO BID [facility] Last Admin: 12/24/16 09:33 Dose: 17 gm Prasugrel (Effient) 10 mg PO DAILY [facility] Last Admin: 12/24/16 09:31 Dose: 10 mg Tiotropium [place] (Spiriva) 18 mcg IH DAILY [facility] Last Admin: 12/24/16 09:35 Dose: 18 mcg Venlafaxine HCl (Effexor) 75 mg PO DAILY [facility] Last Admin: 12/24/16 09:31 Dose: 75 mg - Labs Labs: 12/24/16 06:40 12/24/16 06:40 PT 15.1 SECONDS (9.4-12.5) H 12/24/16 06:40 INR 1.36 (0.93-1.08) H 12/24/16 06:40 APTT 29.1 Seconds (25.1-36.5) 12/24/16 06:40 - Constitutional Appears: Non-toxic, No Acute Distress - Head Exam Head Exam: NORMAL INSPECTION, NORMOCEPHALIC - Eye Exam Eye Exam: EOMI, Normal appearance. absent: Conjunctival injection, Scleral icterus Pupil Exam: PERRL - ENT Exam ENT Exam: Mucous Membranes Moist - Neck Exam Neck Exam: absent: Lymphadenopathy - Respiratory Exam Respiratory Exam: Chest Wall Tenderness (L side), Clear to Ausculation Bilateral , NORMAL BREATHING PATTERN. absent: Accessory Muscle Use, Rales, Rhonchi, Wheezes, Respiratory Distress - Cardiovascular Exam Cardiovascular Exam: REGULAR RHYTHM, +S1, +S2 - GI/Abdominal Exam GI & Abdominal Exam: Soft, Normal Bowel Sounds. absent: Tenderness - Extremities Exam Extremities Exam: absent: Pedal Edema Additional comments: L hip ecchymosis noted L knee dressings c/d/i L elbow dressings c/d/i - Back Exam Back Exam: absent: rash noted - Neurological Exam Neurological Exam: Alert, Awake, Oriented x3 - Psychiatric Exam Psychiatric exam: Normal Affect, Normal Mood - Skin Skin Exam: Dry, Normal Color, Warm Assessment and Plan - Assessment and Plan (Free Text) Assessment: 76 yo male PMHx of MS (chronic R-sided muscle weakness), [place] s/p 2 stents, hypothyroidism, chronic constipation on daily Miralax, hydrocele, COPD, HTN, HLD , s/p [place] w/SAGAR x 2, and hearing loss bilaterally admitted for close monitoring and management of multiple rib fracture 2/2 traumatic mechanical fall Plan: Traumatic mechanical fall resulting in intractable chest pain - pain likely secondary to rib fractures - fall described as mechanical, with component 2/2 MS (right sided weakness at baseline, ?unstable gait) - CT chest: notable for ribs fractures, left ribs 7-9, 7 and 8 mildly displaced , 9 non-displaced, no PE, no pneumothorax/hemothorax noted - Chest binder in place - IS to prevent worsening atelectasis, avoid predisposing to pneumonia - Pain regimen as per surgery - Surgery following - Pulm following - Pain management consulted regarding nerve block - Out of bed to chair as tolerated - PT to assess, may require SANJAY after discharge Hx MS with R-sided weakness - likely contributory to mechanical fall - continue home MS medications - Phyical Therapy - MS reported as stable and well managed, no need for Neuro consult at this time Hypothyroid - continue home synthroid - TSH, Free T4, Total T3 wnl Chronic constipation - likely due to home pain medication use - continue home Miralax - Colace added COPD - continue Xopenex and home inhalers, Pulmicort in place of home steroid inhaler not on formulary as per Pharmacy - Supplemental O2 as needed to maintain SaO2 > 88% - Pulm consulted HTN - continue home lisinopril at 2.5mg PO daily HLD - Lipitor 40mg PO daily, heart-healthy soft diet Hx [place] s/p 2 stents - continue home ASA and Effient Diet: Soft Heart-healthy diet Ppx: Protonix for GI, SCDs for DVT (avoid AC in setting of traumatic fall and fractures) Discussed with Dr. Naldo Anderson PGY2 <Kacie Hitchcock - Last Filed: 12/25/16 16:48> Objective - Vital Signs/Intake and Output Vital Signs (last 24 hours): Temp Pulse Resp BP Pulse Ox 98.2 F 120 H 18 118/74 93 L 12/25/16 16:33 12/25/16 16:33 12/25/16 16:33 12/25/16 16:33 12/25/16 16:33 Intake and Output: 12/25/16 12/25/16 06:59 18:59 Intake Total 3060 600 Output Total 200 Balance 2860 600 - Medications Medications: Current Medications Acetylcysteine (Acetylcysteine 20%) 4 ml IH [id number] [facility] Last Admin: 12/25/16 15:36 Dose: 4 ml Armodafinil (Nuvigil 250 Mg Tab) 250 mg PO HS [facility] Last Admin: 12/24/16 21:28 Dose: 250 mg Ascorbic Acid (Vitamin C 500 Mg Tab) 1,000 mg PO QAM [facility] Last Admin: 12/25/16 09:25 Dose: 1,000 mg Aspirin (Ecotrin) 325 mg PO DAILY [facility] Last Admin: 12/25/16 10:39 Dose: Not Given Atorvastatin Calcium (Lipitor) 40 mg PO DIN [facility] Last Admin: 12/24/16 17:25 Dose: 40 mg Bacitracin (Bacitracin) 0 gm TOP DAILY [facility] Budesonide (Pulmicort Respules) 0.5 mg IH [id number] [facility] Bupropion HCl (Wellbutrin) 100 mg PO DAILY [facility] Last Admin: 12/25/16 09:26 Dose: 100 mg Cholecalciferol (Vitamin D) 1,000 iu PO DAILY [facility] Last Admin: 12/25/16 09:26 Dose: 1,000 iu Cyclobenzaprine HCl (Flexeril) 5 mg PO TID [facility] Last Admin: 12/25/16 14:20 Dose: 5 mg Docusate Sodium (Colace) 100 mg PO TID [facility] Last Admin: 12/25/16 14:20 Dose: 100 mg Gabapentin (Neurontin) 100 mg PO BID [facility] PRN Reason: Protocol Last Admin: 12/25/16 09:26 Dose: 100 mg Guaifenesin (Robitussin) 200 mg PO Q4H PRN PRN Reason: Cough and congestion Last Admin: 12/24/16 09:34 Dose: 200 mg Hydromorphone HCl (Dilaudid) 1.5 mg IVP Q4H PRN PRN Reason: Pain, moderate (4-7) Last Admin: 12/25/16 11:33 Dose: 1.5 mg Levofloxacin/Dextrose (Levaquin 750mg) 750 mg in 150 mls @ 100 mls/hr IVPB DAILY [facility] Last Admin: 12/25/16 09:27 Dose: 100 mls/hr Sodium Chloride (Sodium Chloride 0.9%) 1,000 mls @ 100 mls/hr IV .Q10H [facility] Last Admin: 12/25/16 12:49 Dose: 100 mls/hr Levalbuterol HCl (Xopenex) 0.63 mg IH [id number] [facility] Last Admin: 12/25/16 15:37 Dose: 0.63 mg Levalbuterol HCl (Xopenex) 0.63 mg IH Q2 PRN PRN Reason: Shortness of Breath Last Admin: 12/24/16 16:20 Dose: 0.63 mg Levothyroxine Sodium (Synthroid) 175 mcg PO DAILY [facility] Last Admin: 12/25/16 09:23 Dose: 175 mcg Lidocaine (Lidoderm) 1 ea TD DAILY [facility] Last Admin: 12/25/16 09:27 Dose: 1 ea Lisinopril (Zestril) 2.5 mg PO DAILY [facility] Last Admin: 12/25/16 09:23 Dose: 2.5 mg Mirtazapine (Remeron) 15 mg PO HS [facility] Last Admin: 12/24/16 21:28 Dose: 15 mg Montelukast Sodium (Singulair) 10 mg PO HS [facility] Last Admin: 12/24/16 21:28 Dose: 10 mg Multivitamins (Thera Tab) 1 tab PO DAILY [facility] Last Admin: 12/25/16 09:26 Dose: 1 tab Non-Formulary Medication (Guaifenesin [Mucus Relief]) 1 tab PO DAILY [facility] Last Admin: 12/25/16 09:30 Dose: Not Given Non-Formulary Medication (Multivit-Min/Fa/Lycopen/Lutein [Centrum Silver Tablet] ) 1 tab PO DAILY [facility] Last Admin: 12/25/16 09:30 Dose: Not Given Non-Formulary Medication ([place]-3 Fatty Acids/Fish Oil [[place] 3 Fish Oil Softgel ]) 300 mg PO DAILY [facility] Last Admin: 12/25/16 09:30 Dose: Not Given Oxycodone/Acetaminophen (Percocet 5/325 Mg Tab) 1 tab PO Q4H PRN PRN Reason: Pain, Mild (1-3) Stop: 12/26/16 10:01 Last Admin: 12/24/16 17:26 Dose: 1 tab Pantoprazole Sodium (Protonix Ec Tab) 40 mg PO 0600 [facility] Last Admin: 12/25/16 05:43 Dose: 40 mg Polyethylene Glycol (Miralax) 17 gm PO BID [facility] Last Admin: 12/25/16 09:26 Dose: 17 gm Prasugrel (Effient) 10 mg PO DAILY [facility] Last Admin: 12/25/16 09:23 Dose: 10 mg Tiotropium [place] (Spiriva) 18 mcg IH DAILY [facility] Last Admin: 12/25/16 09:23 Dose: 18 mcg Venlafaxine HCl (Effexor) 75 mg PO DAILY [facility] Last Admin: 12/25/16 09:26 Dose: 75 mg - Labs Labs: 12/25/16 06:45 12/25/16 06:45 PT 15.1 SECONDS (9.4-12.5) H 12/24/16 06:40 INR 1.36 (0.93-1.08) H 12/24/16 06:40 APTT 29.1 Seconds (25.1-36.5) 12/24/16 06:40 Attending/Attestation - Attestation I have personally seen and examined this patient.: Yes I have fully participated in the care of the patient.: Yes I have reviewed all pertinent clinical information, including history, physical exam and plan: Yes Notes (Text): 12/25/16 16:44 Attending note; Patient seen and examined with resident. Patient is alert, awake and oriented. Complaining of significant pain. Patient is a 76 year old male with history of MS with chronic right sided muscle weakness, [place] s/p cardiac stent, hypothyroidism, chronic constipation on daily Miralax, hydrocele, COPD, former smoker, HTN, HLD, and hearing loss bilaterally who presented to [facility] s/p mechanical fall and developed multiple rib fractures on the left side. Chest binder in place. Will continue IV analgesics. Surgery consult appreciated. COPD; pulmonary evaluation appreciated. Continue oxygen and xopenex treatment when necessary. Constipation; continue MiraLAX. Colace added. Dulcolax suppository offered. Advised to decrease IV Dilaudid frequency. Continue incentive spirometer. PT evauation ordered. anesthesia evaluation appreciated. Upon discharge patient will follow up with .
--- NOTE | 2016-12-24 16:33 | CP.PCM.CON ---
History of Present Illness - History of Present Illness History of Present Illness: Anesthesia Consult: Pt with rib fractures (7 through 9) and was called by managing team to explore nerve blocks to manage patient's pain. Discussed case with Pain Management, Dr Mcdermott, who explained: Intercostal block would only be temporary and would not be the optimal treatment modality for this patient. Dr Mcdermott recommends management/discharge with Neurontin, Percocet and Lidocaine patch. Please contact Dr Mcdermott or Dr Solitario at the [facility] ([phone]) with any other question Past Patient History - Infectious Disease Hx of Infectious Diseases: None - Tetanus Immunizations Tetanus Immunization: Unknown - Past Medical History & Family History Past Medical History?: Yes - Past Social History Smoking Status: Former Smoker - CARDIAC Hx Cardiac Disorders: Yes Hx Congestive Heart Failure: Yes Other/Comment: silent MA - PULMONARY Hx Respiratory Disorders: Yes (PULMONARY FIBROSIS) Hx Chronic Obstructive Pulmonary Disease (COPD): Yes Hx Sleep Apnea: Yes - NEUROLOGICAL Hx Neurological Disorder: Yes - HEENT Hx HEENT Problems: Yes Other/Comment: Left WIYOT - RENAL Hx Chronic Kidney Disease: Yes Other/Comment: Kidney Cyst- benign - ENDOCRINE/METABOLIC Hx Endocrine Disorders: Yes Hx Hypothyroidism: Yes - HEMATOLOGICAL/ONCOLOGICAL Hx Blood Disorders: Yes - INTEGUMENTARY Hx Dermatological Problems: Yes Other/Comment: Dermatitis. Vitiligo - MUSCULOSKELETAL/RHEUMATOLOGICAL Hx Musculoskeletal Disorders: Yes Hx Falls: No - GASTROINTESTINAL Hx Gastrointestinal Disorders: Yes Hx Gastroesophageal Reflux: Yes Other/Comment: Endoscopy upper/lower- baretts. Polyps removed. Colonoscopy 7 months ago. - GENITOURINARY/GYNECOLOGICAL Hx Genitourinary Disorders: Yes Hx Prostate Problems: Yes (BPH) Other/Comment: Urgency in urination. Erectile Dysfunction. Right hydrocoele ( Scrotum) - PSYCHIATRIC Hx Emotional Abuse: No Hx Physical Abuse: No Hx Substance Use: No - SURGICAL HISTORY Hx Appendectomy: Yes Hx Cardiac Catheterization: Yes Hx Orthopedic Surgery: Yes Other/Comment: ex-lap, right elbow repair, left elbow rotator cuff repair 2015 - ANESTHESIA Hx Anesthesia: Yes Hx Anesthesia Reactions: Yes ("BLEEDING FROM AIRWAY USED") Hx Malignant Hyperthermia: No Meds Allergies/Adverse Reactions: Allergies Allergy/AdvReac Type Severity Reaction Status Date / Time tape AdvReac REDNESS Uncoded 12/22/16 06:42 - Medications Medications: Current Medications Acetylcysteine (Acetylcysteine 20%) 4 ml IH [id number] [facility] Last Admin: 12/24/16 13:06 Dose: 4 ml Armodafinil (Nuvigil 250 Mg Tab) 250 mg PO HS [facility] Last Admin: 12/23/16 23:31 Dose: Not Given Ascorbic Acid (Vitamin C 500 Mg Tab) 1,000 mg PO QAM [facility] Last Admin: 12/24/16 09:35 Dose: 1,000 mg Aspirin (Ecotrin) 325 mg PO DAILY [facility] Last Admin: 12/24/16 09:31 Dose: 325 mg Atorvastatin Calcium (Lipitor) 40 mg PO DIN [facility] Last Admin: 12/23/16 18:30 Dose: 40 mg Budesonide (Pulmicort Respules) 0.5 mg IH [id number] [facility] Bupropion HCl (Wellbutrin) 100 mg PO DAILY [facility] Last Admin: 12/24/16 09:35 Dose: 100 mg Cholecalciferol (Vitamin D) 1,000 iu PO DAILY [facility] Last Admin: 12/24/16 09:35 Dose: 1,000 iu Cyclobenzaprine HCl (Flexeril) 5 mg PO TID [facility] Last Admin: 12/24/16 14:05 Dose: 5 mg Docusate Sodium (Colace) 100 mg PO TID [facility] Last Admin: 12/24/16 14:05 Dose: 100 mg Gabapentin (Neurontin) 100 mg PO BID [facility] PRN Reason: Protocol Last Admin: 12/24/16 09:34 Dose: 100 mg Guaifenesin (Robitussin) 200 mg PO Q4H PRN PRN Reason: Cough and congestion Last Admin: 12/24/16 09:34 Dose: 200 mg Hydromorphone HCl (Dilaudid) 1.5 mg IVP Q4H PRN PRN Reason: Pain, moderate (4-7) Last Admin: 12/24/16 14:12 Dose: 1.5 mg Levofloxacin/Dextrose (Levaquin 750mg) 750 mg in 150 mls @ 100 mls/hr IVPB DAILY [facility] Last Admin: 12/24/16 09:32 Dose: 100 mls/hr Sodium Chloride (Sodium Chloride 0.9%) 1,000 mls @ 100 mls/hr IV .Q10H [facility] Last Admin: 12/24/16 14:03 Dose: 100 mls/hr Levalbuterol HCl (Xopenex) 0.63 mg IH [id number] [facility] Last Admin: 12/24/16 13:06 Dose: 0.63 mg Levalbuterol HCl (Xopenex) 0.63 mg IH Q2 PRN PRN Reason: Shortness of Breath Last Admin: 12/24/16 16:20 Dose: 0.63 mg Levothyroxine Sodium (Synthroid) 175 mcg PO DAILY [facility] Last Admin: 12/24/16 09:35 Dose: 175 mcg Lidocaine (Lidoderm) 1 ea TD DAILY [facility] Last Admin: 12/24/16 09:33 Dose: 1 ea Lisinopril (Zestril) 2.5 mg PO DAILY [facility] Last Admin: 12/24/16 09:35 Dose: 2.5 mg Mirtazapine (Remeron) 15 mg PO HS [facility] Last Admin: 12/23/16 22:19 Dose: 15 mg Montelukast Sodium (Singulair) 10 mg PO HS [facility] Last Admin: 12/23/16 22:19 Dose: 10 mg Multivitamins (Thera Tab) 1 tab PO DAILY [facility] Last Admin: 12/24/16 09:35 Dose: 1 tab Non-Formulary Medication (Guaifenesin [Mucus Relief]) 1 tab PO DAILY [facility] Last Admin: 12/24/16 09:32 Dose: Not Given Non-Formulary Medication (Multivit-Min/Fa/Lycopen/Lutein [Centrum Silver Tablet] ) 1 tab PO DAILY [facility] Last Admin: 12/24/16 09:33 Dose: Not Given Non-Formulary Medication ([place]-3 Fatty Acids/Fish Oil [[place] 3 Fish Oil Softgel ]) 300 mg PO DAILY [facility] Last Admin: 12/24/16 09:34 Dose: Not Given Oxycodone/Acetaminophen (Percocet 5/325 Mg Tab) 1 tab PO Q4H PRN PRN Reason: Pain, Mild (1-3) Stop: 12/26/16 10:01 Last Admin: 12/24/16 04:46 Dose: 1 tab Pantoprazole Sodium (Protonix Ec Tab) 40 mg PO 0600 [facility] Last Admin: 12/24/16 05:16 Dose: 40 mg Polyethylene Glycol (Miralax) 17 gm PO BID [facility] Last Admin: 12/24/16 09:33 Dose: 17 gm Prasugrel (Effient) 10 mg PO DAILY [facility] Last Admin: 11/13/17 09:31 Dose: 10 mg Tiotropium [place] (Spiriva) 18 mcg IH DAILY [facility] Last Admin: 12/24/16 09:35 Dose: 18 mcg Venlafaxine HCl (Effexor) 75 mg PO DAILY [facility] Last Admin: 12/24/16 09:31 Dose: 75 mg Results - Vital Signs Recent Vital Signs: Last Vital Signs Temp 98.2 F 12/24/16 08:15 Pulse 114 H 12/24/16 09:35 Resp 18 12/24/16 08:15 BP 113/71 12/24/16 09:35 Pulse Ox 90 L 12/24/16 08:15 - Labs Result Diagrams: 12/24/16 06:40 12/24/16 06:40 Labs: Laboratory Results - last 24 hr 12/24/16 12/24/16 12/24/16 06:40 06:40 06:40 WBC 17.0 H D RBC 3.73 Hgb 10.8 L D Hct 33.2 L MCV 89.0 MCH 29.0 MCHC 32.5 RDW 15.1 H Plt Count 190 MPV 9.4 Gran % 77.4 H Lymph % (Auto) 15.4 L [place] % (Auto) 7.0 H Eos % (Auto) 0.1 L Baso % (Auto) 0.1 Gran # 13.12 H Lymph # 2.6 [place] # 1.2 H Eos # 0.0 Baso # 0.02 PT 15.1 H INR 1.36 H APTT 29.1 Sodium 135 Potassium 4.4 Chloride 103 Carbon Dioxide 23 Anion Gap 13 BUN 48 H Creatinine 1.6 H Est GFR ( Amer) 51 Est GFR (Non-Af Amer) 42 Random Glucose 112 H Calcium 9.2 Phosphorus 3.8 Magnesium 1.7 Total Bilirubin 1.2 AST 47 ALT 32 Alkaline Phosphatase 85 Total Protein 6.2 Albumin 3.3 Globulin 2.9 Albumin/Globulin Ratio 1.1
--- NOTE | 2016-12-24 17:17 | CARD ---
APPROVED REPORT EKG Measurement Heart [id number] [id number] [id number] <Conclusion> Sinus tachycardia with 1st degree AV block Left axis deviation Right bundle branch block Inferior infarct, age undetermined Abnormal ECG
[2016-12-24] MEDS: Armodafinil 250 mg Tab PO SCH (21:28)
[2016-12-25] MEDS: Sodium Chloride 0.9% 1,000 ML IV SCH ×2 (00:45→12:49)
[2016-12-25] MEDS: Levalbuterol 0.63 MG/3 ML Inhal Soln UD IH SCH ×5 (05:30→20:28)
[2016-12-25] MEDS: Acetylcysteine 20% Inhal Soln (4ml) IH SCH ×5 (05:30→20:28)
[2016-12-25] MEDS: Pantoprazole 40 mg EC Tab PO SCH (05:43)
[2016-12-25] MEDS: HYDROmorphone 1 mg/ml ISec IVP PRN ×2 (07:00→11:33)
[2016-12-25 07:17] LABS: BASO # 0.02 K/mm3 (0.0-2.0); BASO % 0.1 % (0.0-3.0); EOS # 0.2 (0.0-0.7); EOS % 1.1 % (1.5-5.0); GRAN # 11.48 (1.4-6.5); HEMATOCRIT 31.2 % (42.0-52.0); LYMPH # 3.8 (1.2-3.4); LYMPH % 22.5 % (22.0-35.0); MEAN CELL VOLUME 89.4 fl (80.0-105.0); MEAN CORPUSCULAR HEMOGLOBIN 28.9 pg (25.0-35.0); MEAN CORPUSCULAR HGB CONC 32.4 g/dl (31.0-37.0); MEAN PLATELET VOLUME 9.4 fl (7.0-11.0); MONO # 1.2 (0.1-0.6); MONO % 7.3 % (1.0-6.0); RED CELL DISTRIBUTION WIDTH 15.3 % (11.5-14.5); WHITE BLOOD COUNT 16.7 10^3/ul (4.5-11.0)
[2016-12-25 07:29] LABS: BILIRUBIN,TOTAL 0.9 mg/dL (0.2-1.3); CALCIUM 9.2 mg/dL (8.4-10.5); PHOSPHOROUS 3.1 mg/dL (2.5-4.5); POTASSIUM 4.5 mmol/L (3.6-5.0); TOTAL PROTEIN 6.2 g/dL (5.8-8.3)
--- NOTE | 2016-12-25 08:33 | CP.PCM.PN ---
Subjective - Date & Time of Evaluation Date of Evaluation: 12/25/16 Time of Evaluation: 08:25 - Subjective Subjective: PGY1 General Surgery Note for Dr. Choi Patient seen and examined at bedside this morning. No acute events overnight night. Patient states he is still experiencing pain. Patient reports that he is using his incentive spirometer throughout the day and is able to get up to 1500 (on demonstration he is able to pull 1250 before having to stop due to pain). He reports that he is also experiencing pain in his left leg since he fell. He states that he is able to life it be states that he can not use it to walk. He states that he was able to get up and out of bed yesterday to the chair but he is not able to walk like he usually can due to the pain in his left leg in addition to to his rib pain. Patient was informed that he will not be getting the nerve block for his rib fractures due to short acting nature of the injections. Patient states he understands and we will continue on the current pain regiment as for now with daily monitoring and attempts of decreasing IV dilaudid. Objective - Vital Signs/Intake and Output Vital Signs (last 24 hours): Temp Pulse Resp BP Pulse Ox 98.3 F 117 H 18 133/67 88 L 12/25/16 07:28 12/25/16 07:28 12/25/16 07:28 12/25/16 07:28 12/25/16 07:28 Intake and Output: 12/25/16 12/25/16 06:59 18:59 Intake Total 3060 Output Total 200 Balance 2860 - Medications Medications: Current Medications Acetylcysteine (Acetylcysteine 20%) 4 ml IH [id number] DUNIA Last Admin: 12/25/16 07:59 Dose: 4 ml Armodafinil (Nuvigil 250 Mg Tab) 250 mg PO HS DUNIA Last Admin: 12/24/16 21:28 Dose: 250 mg Ascorbic Acid (Vitamin C 500 Mg Tab) 1,000 mg PO QAM DUNIA Last Admin: 12/24/16 09:35 Dose: 1,000 mg Aspirin (Ecotrin) 325 mg PO DAILY [facility] Last Admin: 12/24/16 09:31 Dose: 325 mg Atorvastatin Calcium (Lipitor) 40 mg PO DIN [facility] Last Admin: 12/24/16 17:25 Dose: 40 mg Budesonide (Pulmicort Respules) 0.5 mg IH [id number] [facility] Bupropion HCl (Wellbutrin) 100 mg PO DAILY [facility] Last Admin: 12/24/16 09:35 Dose: 100 mg Cholecalciferol (Vitamin D) 1,000 iu PO DAILY [facility] Last Admin: 12/24/16 09:35 Dose: 1,000 iu Cyclobenzaprine HCl (Flexeril) 5 mg PO TID [facility] Last Admin: 12/24/16 17:26 Dose: 5 mg Docusate Sodium (Colace) 100 mg PO TID [facility] Last Admin: 12/24/16 17:25 Dose: 100 mg Gabapentin (Neurontin) 100 mg PO BID DUNIA PRN Reason: Protocol Last Admin: 12/24/16 17:25 Dose: 100 mg Guaifenesin (Robitussin) 200 mg PO Q4H PRN PRN Reason: Cough and congestion Last Admin: 12/24/16 09:34 Dose: 200 mg Hydromorphone HCl (Dilaudid) 1.5 mg IVP Q4H PRN PRN Reason: Pain, moderate (4-7) Last Admin: 12/25/16 07:00 Dose: 1.5 mg Levofloxacin/Dextrose (Levaquin 750mg) 750 mg in 150 mls @ 100 mls/hr IVPB DAILY [facility] Last Admin: 12/24/16 09:32 Dose: 100 mls/hr Sodium Chloride (Sodium Chloride 0.9%) 1,000 mls @ 100 mls/hr IV .Q10H [facility] Last Admin: 12/25/16 00:45 Dose: 100 mls/hr Levalbuterol HCl (Xopenex) 0.63 mg IH [id number] [facility] Last Admin: 12/25/16 07:59 Dose: 0.63 mg Levalbuterol HCl (Xopenex) 0.63 mg IH Q2 PRN PRN Reason: Shortness of Breath Last Admin: 12/24/16 16:20 Dose: 0.63 mg Levothyroxine Sodium (Synthroid) 175 mcg PO DAILY [facility] Last Admin: 12/24/16 09:35 Dose: 175 mcg Lidocaine (Lidoderm) 1 ea TD DAILY [facility] Last Admin: 12/24/16 09:33 Dose: 1 ea Lisinopril (Zestril) 2.5 mg PO DAILY [facility] Last Admin: 12/24/16 09:35 Dose: 2.5 mg Mirtazapine (Remeron) 15 mg PO HS [facility] Last Admin: 12/24/16 21:28 Dose: 15 mg Montelukast Sodium (Singulair) 10 mg PO HS [facility] Last Admin: 12/24/16 21:28 Dose: 10 mg Multivitamins (Thera Tab) 1 tab PO DAILY [facility] Last Admin: 12/24/16 09:35 Dose: 1 tab Non-Formulary Medication (Guaifenesin [Mucus Relief]) 1 tab PO DAILY [facility] Last Admin: 12/24/16 09:32 Dose: Not Given Non-Formulary Medication (Multivit-Min/Fa/Lycopen/Lutein [Centrum Silver Tablet] ) 1 tab PO DAILY [facility] Last Admin: 12/24/16 09:33 Dose: Not Given Non-Formulary Medication ([place]-3 Fatty Acids/Fish Oil [[place] 3 Fish Oil Softgel ]) 300 mg PO DAILY [facility] Last Admin: 12/24/16 09:34 Dose: Not Given Oxycodone/Acetaminophen (Percocet 5/325 Mg Tab) 1 tab PO Q4H PRN PRN Reason: Pain, Mild (1-3) Stop: 12/26/16 10:01 Last Admin: 12/24/16 17:26 Dose: 1 tab Pantoprazole Sodium (Protonix Ec Tab) 40 mg PO 0600 [facility] Last Admin: 12/25/16 05:43 Dose: 40 mg Polyethylene Glycol (Miralax) 17 gm PO BID [facility] Last Admin: 12/24/16 17:25 Dose: 17 gm Prasugrel (Effient) 10 mg PO DAILY [facility] Last Admin: 12/24/16 09:31 Dose: 10 mg Tiotropium [place] (Spiriva) 18 mcg IH DAILY [facility] Last Admin: 12/24/16 09:35 Dose: 18 mcg Venlafaxine HCl (Effexor) 75 mg PO DAILY [facility] Last Admin: 12/24/16 09:31 Dose: 75 mg - Labs Labs: 12/25/16 06:45 12/25/16 06:45 PT 15.1 SECONDS (9.4-12.5) H 12/24/16 06:40 INR 1.36 (0.93-1.08) H 12/24/16 06:40 APTT 29.1 Seconds (25.1-36.5) 12/24/16 06:40 - Constitutional Appears: Non-toxic, Other (in obvious pain with deep inspiration) - Head Exam Head Exam: NORMOCEPHALIC - Eye Exam Eye Exam: EOMI, Normal appearance. absent: Scleral icterus - ENT Exam ENT Exam: Mucous Membranes Moist - Neck Exam Neck Exam: absent: Lymphadenopathy - Respiratory Exam Respiratory Exam: Chest Wall Tenderness (left side), Rhonchi, NORMAL BREATHING PATTERN. absent: Accessory Muscle Use, Wheezes, Respiratory Distress - Cardiovascular Exam Cardiovascular Exam: REGULAR RHYTHM - GI/Abdominal Exam GI & Abdominal Exam: Soft. absent: Distended, Firm, Guarding, Rigid, Tenderness - Extremities Exam Extremities Exam: Normal Capillary Refill. absent: Calf Tenderness, Tenderness Additional comments: Left knee with dressings in place - c/d/i; left elbow with dressing and kerlix in place - c/d/i Patient able to lift legs b/l, right leg has baseline deficit due to MS. Patient reports severe pain in left LE with flexion of knee and hip. DP/PT pulse 2+ b/l - Neurological Exam Neurological Exam: Alert, Awake, Oriented x3 - Psychiatric Exam Psychiatric exam: Normal Affect, Normal Mood - Skin Skin Exam: Dry, Warm Additional comments: ecchymoses of different stages of healing throughout body, consistent with mechanical fall Assessment and Plan - Assessment and Plan (Free Text) Assessment: 76M w/fractures of L ribs 7-9 s/p mechanical fall consulted for Left thorax pain - pt currently stable Plan: Pain control, attempt to ween down IV dilaudid Incentive spirometry Will not perform nerve block per anesthesia - continue current management with IV, PO and topical pain medications. Pulmonary toilet Pulm consult OOBTC further management as per primary team Will discuss with Dr. Jimbo Ayoub Larry PGY1
--- NOTE | 2016-12-25 08:38 | PN ---
DATE: 12/25/2016 PULMONARY PROGRESS NOTE SUBJECTIVE: The patient appears more comfortable this morning. He is not short of breath at rest. He is in less pain when he moves. PHYSICAL EXAMINATION: VITAL SIGNS: Temperature is 98.3, pulse is approximately 100, respirations are 18, and blood pressure is 133/67. Oxygen saturation on room air is 88%. Oxygen saturation on nasal cannula is 93%. HEENT: Normocephalic and atraumatic. No JVD. CARDIOVASCULAR: Positive S1 and S2. No S3 gallop. LUNGS: Decreased breath sounds at the bases. Less rhonchi. No wheezing. EXTREMITIES: No clubbing, cyanosis or edema. Calves are nontender to palpation. GASTROINTESTINAL: Abdomen is soft, nontender and nondistended. Bowel sounds are positive. SKIN: No acute rash. NEUROLOGIC: Exam is limited at the present time. PERTINENT LABORATORY DATA: Chest x-ray was repeated yesterday and reviewed. There is a new infiltrate noted at the right base. The infiltrate linear and is most consistent with atelectasis. IMPRESSION 1. Multiple left-sided rib fractures 2. Status post fall at home. 3. Chronic obstructive pulmonary disease. 4. Mild bronchospasm. 5. Bibasilar atelectasis. 6. Multiple sclerosis PLAN: The patient definitely appears more comfortable this morning. He is not short of breath at rest. As above, it is less painful for him to move. He does state to feeling much better overall. On physical exam, mild bronchospasm persists. I will continue the current nebulizer treatments and inhaled steroids for now. The patient is also reminded to be out of bed as much as possible, and using his incentive spirometer. The patient remains on antibiotic therapy. There are no temperatures noted. The leukocytosis is resolving. Inputs by surgery and pain management are also noted. Clinical status of the patient is certainly improved - compared to the initial presentation. I will discuss the above with the attending physician. Amanuel Riggins MD [facility]
[2016-12-25] MEDS: Levothyroxine 175 MCG TAB PO SCH (09:23)
[2016-12-25] MEDS: Aspirin 325 mg EC Tablets PO SCH ×2 (09:23→10:39)
[2016-12-25] MEDS: Tiotropium 18 mcg Cap For Inhalation IH SCH (09:23)
[2016-12-25] MEDS: Multivitamin Therapeutic Tab PO SCH (09:26)
[2016-12-25] MEDS: POLYETHYLENE GLYCOL 3350 17 GM/Dose PACKET PO SCH ×3 (09:26→18:26)
[2016-12-25] MEDS: levoFLOXacin 750 mg in D5W 750 MG/150 ML BAG IVPB SCH (09:27)
[2016-12-25] MEDS: Lidocaine 5% Patch TD SCH (09:27)
[2016-12-25] MEDS: FISH OIL PO SCH (09:30)
[2016-12-25] MEDS: GUAIFENESIN PO SCH (09:30)
[2016-12-25] MEDS: FATTY ACIDS PO SCH (09:30)
[2016-12-25] MEDS: Non Formulary Medication (Multivit-Min/Fa/Lycopen/Lutein [Centrum Silver Tablet] 1 TAB) PO SCH (09:30)
[2016-12-25] MEDS: OMEGA PO SCH (09:30)
[2016-12-25] MEDS: [UNRECOGNIZED DRUG - OTHER] PO SCH (09:30)
--- NOTE | 2016-12-25 10:46 | CP.PCM.PN ---
<Briseida Anderson - Last Filed: 12/25/16 15:07> Subjective - Date & Time of Evaluation Date of Evaluation: 12/25/16 Time of Evaluation: 08:45 - Subjective Subjective: PGY2 Medicine note for Dr. Hitchcock Patient seen and examined at bedside. No acute events overnight as per nursing. Patient continues complaining of pain on his left chest and now his left knee. He has binder in place and regularly using IS. Patient is to ambulate with PT today and ambulated with OT from bed to chair. Denies fever, chills, headache, dizziness, chest pain, palpitations, abd pain, nausea, vomiting, bladder complaints, swelling in his legs bilaterally. Patient is still constipated and has not had a BM but is passing flatus. Patient refusing lactulose and enemas. Objective - Vital Signs/Intake and Output Vital Signs (last 24 hours): Temp Pulse Resp BP Pulse Ox 98.3 F 87 18 133/67 88 L 12/25/16 07:28 12/25/16 09:23 12/25/16 07:28 12/25/16 09:23 12/25/16 07:28 Intake and Output: 12/25/16 12/25/16 06:59 18:59 Intake Total 3060 Output Total 200 Balance 2860 - Medications Medications: Current Medications Acetylcysteine (Acetylcysteine 20%) 4 ml [facility]H [id number] [facility] Last Admin: 12/25/16 07:59 Dose: 4 ml Armodafinil (Nuvigil 250 Mg Tab) 250 mg PO HS [facility] Last Admin: 12/24/16 21:28 Dose: 250 mg Ascorbic Acid (Vitamin C 500 Mg Tab) 1,000 mg PO QAM [facility] Last Admin: 12/25/16 09:25 Dose: 1,000 mg Aspirin (Ecotrin) 325 mg PO DAILY [facility] Last Admin: 12/25/16 10:39 Dose: Not Given Atorvastatin Calcium (Lipitor) 40 mg PO DIN [facility] Last Admin: 12/24/16 17:25 Dose: 40 mg Budesonide (Pulmicort Respules) 0.5 mg IH [id number] [facility] Bupropion HCl (Wellbutrin) 100 mg PO DAILY [facility] Last Admin: 12/25/16 09:26 Dose: 100 mg Cholecalciferol (Vitamin D) 1,000 iu PO DAILY [facility] Last Admin: 12/25/16 09:26 Dose: 1,000 iu Cyclobenzaprine HCl (Flexeril) 5 mg PO TID [facility] Last Admin: 12/25/16 09:23 Dose: 5 mg Docusate Sodium (Colace) 100 mg PO TID [facility] Last Admin: 12/25/16 09:23 Dose: 100 mg Gabapentin (Neurontin) 100 mg PO BID [facility] PRN Reason: Protocol Last Admin: 12/25/16 09:26 Dose: 100 mg Guaifenesin (Robitussin) 200 mg PO Q4H PRN PRN Reason: Cough and congestion Last Admin: 12/24/16 09:34 Dose: 200 mg Hydromorphone HCl (Dilaudid) 1.5 mg IVP Q4H PRN PRN Reason: Pain, moderate (4-7) Last Admin: 12/25/16 07:00 Dose: 1.5 mg Levofloxacin/Dextrose (Levaquin 750mg) 750 mg in 150 mls @ 100 mls/hr IVPB DAILY [facility] Last Admin: 12/25/16 09:27 Dose: 100 mls/hr Sodium Chloride (Sodium Chloride 0.9%) 1,000 mls @ 100 mls/hr IV .Q10H [facility] Last Admin: 12/25/16 00:45 Dose: 100 mls/hr Levalbuterol HCl (Xopenex) 0.63 mg IH [id number] [facility] Last Admin: 12/25/16 07:59 Dose: 0.63 mg Levalbuterol HCl (Xopenex) 0.63 mg IH Q2 PRN PRN Reason: Shortness of Breath Last Admin: 12/24/16 16:20 Dose: 0.63 mg Levothyroxine Sodium (Synthroid) 175 mcg PO DAILY [facility] Last Admin: 12/25/16 09:23 Dose: 175 mcg Lidocaine (Lidoderm) 1 ea TD DAILY [facility] Last Admin: 12/25/16 09:27 Dose: 1 ea Lisinopril (Zestril) 2.5 mg PO DAILY [facility] Last Admin: 12/25/16 09:23 Dose: 2.5 mg Mirtazapine (Remeron) 15 mg PO HS DUNIA Last Admin: 12/24/16 21:28 Dose: 15 mg Montelukast Sodium (Singulair) 10 mg PO HS [facility]UNIA Last Admin: 12/24/16 21:28 Dose: 10 mg Multivitamins (Thera Tab) 1 tab PO DAILY [facility] Last Admin: 12/25/16 09:26 Dose: 1 tab Non-Formulary Medication (Guaifenesin [Mucus Relief]) 1 tab PO DAILY [facility] Last Admin: 12/24/16 09:32 Dose: Not Given Non-Formulary Medication (Multivit-Min/Fa/Lycopen/Lutein [Centrum Silver Tablet] ) 1 tab PO DAILY [facility] Last Admin: 12/24/16 09:33 Dose: Not Given Non-Formulary Medication ([place]-3 Fatty Acids/Fish Oil [[place] 3 Fish Oil Softgel ]) 300 mg PO DAILY [facility] Last Admin: 12/24/16 09:34 Dose: Not Given Oxycodone/Acetaminophen (Percocet 5/325 Mg Tab) 1 tab PO Q4H PRN PRN Reason: Pain, Mild (1-3) Stop: 12/26/16 10:01 Last Admin: 12/24/16 17:26 Dose: 1 tab Pantoprazole Sodium (Protonix Ec Tab) 40 mg PO 0600 [facility] Last Admin: 12/25/16 05:43 Dose: 40 mg Polyethylene Glycol (Miralax) 17 gm PO BID [facility] Last Admin: 12/25/16 09:26 Dose: 17 gm Prasugrel (Effient) 10 mg PO DAILY [facility] Last Admin: 12/25/16 09:23 Dose: 10 mg Tiotropium [place] (Spiriva) 18 mcg IH DAILY [facility] Last Admin: 12/25/16 09:23 Dose: 18 mcg Venlafaxine HCl (Effexor) 75 mg PO DAILY [facility] Last Admin: 12/25/16 09:26 Dose: 75 mg - Labs Labs: 12/25/16 06:45 12/25/16 06:45 PT 15.1 SECONDS (9.4-12.5) H 12/24/16 06:40 INR 1.36 (0.93-1.08) H 12/24/16 06:40 APTT 29.1 Seconds (25.1-36.5) 12/24/16 06:40 - Constitutional Appears: Non-toxic, In Acute Distress (when deep inspiration) - Head Exam Head Exam: NORMAL INSPECTION, NORMOCEPHALIC - Eye Exam Eye Exam: EOMI, Normal appearance, PERRL. absent: Conjunctival injection, Scleral icterus - ENT Exam ENT Exam: Mucous Membranes Moist - Neck Exam Neck Exam: Normal Inspection - Respiratory Exam Respiratory Exam: Chest Wall Tenderness (left side ), Rhonchi, Wheezes, NORMAL BREATHING PATTERN. absent: Accessory Muscle Use, Respiratory Distress - Cardiovascular Exam Cardiovascular Exam: REGULAR RHYTHM, RRR, +S1, +S2. absent: Murmur - GI/Abdominal Exam GI & Abdominal Exam: Distended, Soft, Normal Bowel Sounds. absent: Firm, Guarding, Rigid - Extremities Exam Extremities Exam: Normal Capillary Refill Additional comments: Left knee with dressings in place - c/d/i Left elbow with dressing in place - c/d/i Patient reports severe pain in left LE with flexion of knee and hip. DP/PT pulse 2+ b/l - Neurological Exam Neurological Exam: Alert, Awake, Oriented x3 - Psychiatric Exam Psychiatric exam: Normal Affect, Normal Mood - Skin Skin Exam: Dry, Warm Additional comments: ecchymoses of different stages of healing throughout body Assessment and Plan - Assessment and Plan (Free Text) Assessment: 76 yo male PMHx of MS (chronic R-sided muscle weakness), MD s/p 2 stents, hypothyroidism, chronic constipation on daily Miralax, hydrocele, COPD, HTN, HLD , s/p MD w/SAGAR x 2, and hearing loss bilaterally admitted for close monitoring and management of multiple rib fracture 2/2 traumatic mechanical fall Plan: Traumatic mechanical fall resulting in intractable chest pain - pain likely secondary to rib fractures - fall described as mechanical, with component 2/2 MS (right sided weakness at baseline, ?unstable gait) - CT chest: notable for ribs fractures, left ribs 7-9, 7 and 8 mildly displaced , 9 non-displaced, no PE, no pneumothorax/hemothorax noted - Chest binder in place - IS to prevent worsening atelectasis, avoid predisposing to pneumonia - Pain regimen as per surgery - Surgery following - Pulm following - Pain management consulted regarding nerve block - Out of bed to chair as tolerated - PT to assess, may require SANJAY after discharge - Anesthesia evaluated patient regarding nerve blocks to manage pain and upon discussion with pain management, Dr. Mcdermott, recommendation is Neurontin, Percocet , and Lidocaine patch. Contact for Dr. Mcdermott and Dr. Solitario at [facility] as follows: [phone] Hx MS with R-sided weakness - likely contributory to mechanical fall - continue home MS medications - Phyical Therapy - MS reported as stable and well managed, no need for Neuro consult at this time Hypothyroid - continue home synthroid - TSH, Free T4, Total T3 wnl Chronic constipation - Abdominal x-ray: unremarkable exam - likely due to home pain medication use - Miralax - Colace - Patient received one dose of Relistor COPD - continue Xopenex and home inhalers, Pulmicort in place of home steroid inhaler not on formulary as per Pharmacy - Supplemental O2 as needed to maintain SaO2 > 88% - Pulm consulted HTN - continue home lisinopril at 2.5mg PO daily HLD - Lipitor 40mg PO daily, heart-healthy soft diet Hx MD s/p 2 stents - continue home ASA and Effient Diet: Soft Heart-healthy diet Ppx: Protonix for GI, SCDs for DVT (avoid AC in setting of traumatic fall and fractures) Discussed with Dr. Naldo Anderson PGY2 <Kacie Hitchcock - Last Filed: 12/25/16 16:51> Objective - Vital Signs/Intake and Output Vital Signs (last 24 hours): Temp Pulse Resp BP Pulse Ox 98.2 F 120 H 18 118/74 93 L 12/25/16 16:33 12/25/16 16:33 12/25/16 16:33 12/25/16 16:33 12/25/16 16:33 Intake and Output: 12/25/16 12/25/16 06:59 18:59 Intake Total 3060 600 Output Total 200 Balance 2860 600 - Medications Medications: Current Medications Acetylcysteine (Acetylcysteine 20%) 4 ml IH [id number] [facility] Last Admin: 12/25/16 15:36 Dose: 4 ml Armodafinil (Nuvigil 250 Mg Tab) 250 mg PO HS [facility] Last Admin: 12/24/16 21:28 Dose: 250 mg Ascorbic Acid (Vitamin C 500 Mg Tab) 1,000 mg PO QAM [facility] Last Admin: 12/25/16 09:25 Dose: 1,000 mg Aspirin (Ecotrin) 325 mg PO DAILY [facility] Last Admin: 12/25/16 10:39 Dose: Not Given Atorvastatin Calcium (Lipitor) 40 mg PO DIN [facility] Last Admin: 12/24/16 17:25 Dose: 40 mg Bacitracin (Bacitracin) 0 gm TOP DAILY [facility] Budesonide (Pulmicort Respules) 0.5 mg IH [id number] [facility] Bupropion HCl (Wellbutrin) 100 mg PO DAILY [facility] Last Admin: 12/25/16 09:26 Dose: 100 mg Cholecalciferol (Vitamin D) 1,000 iu PO DAILY [facility] Last Admin: 12/25/16 09:26 Dose: 1,000 iu Cyclobenzaprine HCl (Flexeril) 5 mg PO TID [facility] Last Admin: 12/25/16 14:20 Dose: 5 mg Docusate Sodium (Colace) 100 mg PO TID [facility] Last Admin: 12/25/16 14:20 Dose: 100 mg Gabapentin (Neurontin) 100 mg PO BID [facility] PRN Reason: Protocol Last Admin: 12/25/16 09:26 Dose: 100 mg Guaifenesin (Robitussin) 200 mg PO Q4H PRN PRN Reason: Cough and congestion Last Admin: 12/24/16 09:34 Dose: 200 mg Hydromorphone HCl (Dilaudid) 1.5 mg IVP Q4H PRN PRN Reason: Pain, moderate (4-7) Last Admin: 12/25/16 11:33 Dose: 1.5 mg Levofloxacin/Dextrose (Levaquin 750mg) 750 mg in 150 mls @ 100 mls/hr IVPB DAILY [facility] Last Admin: 12/25/16 09:27 Dose: 100 mls/hr Sodium Chloride (Sodium Chloride 0.9%) 1,000 mls @ 100 mls/hr IV .Q10H [facility] Last Admin: 12/25/16 12:49 Dose: 100 mls/hr Levalbuterol HCl (Xopenex) 0.63 mg IH [id number] [facility] Last Admin: 12/25/16 15:37 Dose: 0.63 mg Levalbuterol HCl (Xopenex) 0.63 mg IH Q2 PRN PRN Reason: Shortness of Breath Last Admin: 12/24/16 16:20 Dose: 0.63 mg Levothyroxine Sodium (Synthroid) 175 mcg PO DAILY [facility] Last Admin: 12/25/16 09:23 Dose: 175 mcg Lidocaine (Lidoderm) 1 ea TD DAILY [facility] Last Admin: 12/25/16 09:27 Dose: 1 ea Lisinopril (Zestril) 2.5 mg PO DAILY [facility] Last Admin: 12/25/16 09:23 Dose: 2.5 mg Mirtazapine (Remeron) 15 mg PO HS [facility] Last Admin: 12/24/16 21:28 Dose: 15 mg Montelukast Sodium (Singulair) 10 mg PO HS [facility] Last Admin: 12/24/16 21:28 Dose: 10 mg Multivitamins (Thera Tab) 1 tab PO DAILY [facility] Last Admin: 12/25/16 09:26 Dose: 1 tab Non-Formulary Medication (Guaifenesin [Mucus Relief]) 1 tab PO DAILY [facility] Last Admin: 12/25/16 09:30 Dose: Not Given Non-Formulary Medication (Multivit-Min/Fa/Lycopen/Lutein [Centrum Silver Tablet] ) 1 tab PO DAILY [facility] Last Admin: 12/25/16 09:30 Dose: Not Given Non-Formulary Medication ([place]-3 Fatty Acids/Fish Oil [[place] 3 Fish Oil Softgel ]) 300 mg PO DAILY [facility] Last Admin: 12/25/16 09:30 Dose: Not Given Oxycodone/Acetaminophen (Percocet 5/325 Mg Tab) 1 tab PO Q4H PRN PRN Reason: Pain, Mild (1-3) Stop: 12/26/16 10:01 Last Admin: 12/24/16 17:26 Dose: 1 tab Pantoprazole Sodium (Protonix Ec Tab) 40 mg PO 0600 [facility] Last Admin: 12/25/16 05:43 Dose: 40 mg Polyethylene Glycol (Miralax) 17 gm PO BID [facility] Last Admin: 12/25/16 09:26 Dose: 17 gm Prasugrel (Effient) 10 mg PO DAILY [facility] Last Admin: 12/25/16 09:23 Dose: 10 mg Tiotropium [place] (Spiriva) 18 mcg IH DAILY [facility] Last Admin: 12/25/16 09:23 Dose: 18 mcg Venlafaxine HCl (Effexor) 75 mg PO DAILY [facility] Last Admin: 12/25/16 09:26 Dose: 75 mg - Labs Labs: 12/25/16 06:45 12/25/16 06:45 PT 15.1 SECONDS (9.4-12.5) H 12/24/16 06:40 INR 1.36 (0.93-1.08) H 12/24/16 06:40 APTT 29.1 Seconds (25.1-36.5) 12/24/16 06:40 Attending/Attestation - Attestation I have personally seen and examined this patient.: Yes I have fully participated in the care of the patient.: Yes I have reviewed all pertinent clinical information, including history, physical exam and plan: Yes Notes (Text): 12/25/16 16:49 Attending note; Patient seen and examined with resident. Patient is alert, awake and oriented. Patient is a 76 year old male with history of MS with chronic right sided muscle weakness, MD s/p cardiac stent, hypothyroidism, chronic constipation on daily Miralax, COPD, former smoker, HTN, HLD, and hearing loss bilaterally who presented to [facility] s/p mechanical fall and developed multiple rib fractures on the left side. Chest binder in place. Will continue IV analgesics. Surgery consult appreciated. COPD; pulmonary evaluation appreciated. Continue oxygen and xopenex treatment when necessary. Constipation; continue MiraLAX. Colace added. Dulcolax suppository offered. Abdominal x-ray is negative for ileus or obstruction. Continue incentive spirometer. PT evauation appreciated. Possible [facility] placement. Will discuss with social security assessor/field nurse case manager for discharge planning. Upon discharge patient will follow up with .
--- NOTE | 2016-12-25 14:21 | RAD ---
HISTORY: r/o obstruction COMPARISON: 03/08/2016 FINDINGS: BOWEL: Supine and left lateral decubitus views of the abdomen demonstrate the bowel gas pattern to be unremarkable. There is no evidence of bowel obstruction. There is no evidence of free intraperitoneal air. Numerous surgical clips are seen in the mid central and right abdomen as on prior examination. BONES: Normal. OTHER FINDINGS: None. IMPRESSION: Unremarkable examination.
[2016-12-25] MEDS: Bacitracin Ointment 30 GM TUBE TOP SCH (18:03)
[2016-12-25] MEDS: Budesonide 0.5 mg/2 ml Inhal Susp UD IH SCH (20:39)
[2016-12-25] MEDS: Oxycodone/Acetaminophen 5/325 mg Tab PO PRN (21:39)
[2016-12-25] MEDS: Armodafinil 250 mg Tab PO SCH (21:39)
[2016-12-26] MEDS: HYDROmorphone 1 mg/ml ISec IVP PRN ×2 (01:08→08:26)
[2016-12-26] MEDS: Levalbuterol 0.63 MG/3 ML Inhal Soln UD IH SCH ×4 (01:35→20:43)
[2016-12-26] MEDS: Acetylcysteine 20% Inhal Soln (4ml) IH SCH ×4 (01:35→20:43)
[2016-12-26] MEDS: Sodium Chloride 0.9% 1,000 ML IV SCH ×2 (02:50→22:49)
[2016-12-26] MEDS: Oxycodone/Acetaminophen 5/325 mg Tab PO PRN (03:34)
[2016-12-26] MEDS: Pantoprazole 40 mg EC Tab PO SCH (06:39)
[2016-12-26] MEDS: Budesonide 0.5 mg/2 ml Inhal Susp UD IH SCH ×2 (07:23→20:43)
[2016-12-26] MEDS: Multivitamin Therapeutic Tab PO SCH (09:25)
[2016-12-26] MEDS: Aspirin 325 mg EC Tablets PO SCH (09:25)
[2016-12-26] MEDS: Levothyroxine 175 MCG TAB PO SCH (09:29)
[2016-12-26] MEDS: Tiotropium 18 mcg Cap For Inhalation IH SCH (09:29)
[2016-12-26] MEDS: POLYETHYLENE GLYCOL 3350 17 GM/Dose PACKET PO SCH ×4 (09:30→22:34)
[2016-12-26] MEDS: Lidocaine 5% Patch TD SCH (09:30)
[2016-12-26] MEDS: levoFLOXacin 750 mg in D5W 750 MG/150 ML BAG IVPB SCH (09:31)
[2016-12-26] MEDS: Bacitracin Ointment 30 GM TUBE TOP SCH (09:31)
[2016-12-26 09:59] LABS: BASO # 0.03 K/mm3 (0.0-2.0); BASO % 0.2 % (0.0-3.0); EOS # 0.3 (0.0-0.7); EOS % 1.5 % (1.5-5.0); GRAN # 12.05 (1.4-6.5); GRAN % 73.8 % (50.0-68.0); HEMATOCRIT 31.5 % (42.0-52.0); LYMPH # 2.6 (1.2-3.4); LYMPH % 16.1 % (22.0-35.0); MEAN CELL VOLUME 89.5 fl (80.0-105.0); MEAN CORPUSCULAR HEMOGLOBIN 28.7 pg (25.0-35.0); MEAN CORPUSCULAR HGB CONC 32.1 g/dl (31.0-37.0); MEAN PLATELET VOLUME 8.9 fl (7.0-11.0); MONO # 1.4 (0.1-0.6); MONO % 8.4 % (1.0-6.0); RED CELL DISTRIBUTION WIDTH 15.4 % (11.5-14.5); WHITE BLOOD COUNT 16.3 10^3/ul (4.5-11.0)
[2016-12-26] MEDS ORDERED: Bisacodyl 5mg EC Tab PO ONE (10:33)
--- NOTE | 2016-12-26 10:42 | PN ---
DATE: 12/26/2016 SUBJECTIVE: The patient appears more comfortable this morning. He is not short of breath at rest. He is certainly moving better. OBJECTIVE: VITAL SIGNS: Temperature is 98.3, pulse 88, respirations 18, blood pressure 132/79. Oxygen saturation on nasal cannula is 93%. HEENT: Normocephalic, atraumatic. NECK: No JVD. CARDIOVASCULAR: Positive S1, S2. No S3 gallop. LUNGS: Decreased breath sounds at the bases. Much less rhonchi. No wheezing. EXTREMITIES: No clubbing, cyanosis or edema. Calves are nontender to palpation. GI: Abdomen is soft, nontender and nondistended. Bowel sounds are positive. SKIN: No acute rash. NEUROLOGIC: Exam limited at the present time. IMPRESSION: 1. Multiple left-sided rib fractures. 2. Status post fall at home. 3. Chronic obstructive pulmonary disease. 4. Mild bronchospasm. 5. Bibasilar atelectasis. 6. Multiple sclerosis. PLAN: The patient certainly appears more comfortable this morning. He is not short of breath at rest. He is moving much better - compared to a few days ago. On physical exam, his bronchospasm is significant significantly less. I will continue the current nebulizer treatments and inhaled steroids for now. Inputs by surgery and pain management are noted. The patient remains on antibiotic therapy. There are no temperatures noted. Repeat a.m. labs are pending. Clinical status of the patient is significantly improved - compared to the initial presentation. I will discuss the above with the attending physician. Amanuel Riggins MD MTDEloy
--- NOTE | 2016-12-26 10:48 | CP.PCM.CON ---
<KatelynRandyjose c - Last Filed: 12/26/16 13:18> History of Present Illness - History of Present Illness History of Present Illness: Moose Zepeda DO PGY1 - GI Consult Note for Dr. Cuellar Consultation for constipation Tonio is a 76yo M with PMH of MS (chronic R-sided muscle weakness), NE s/p 2 stents, hypothyroidism, hydrocele, COPD, HTN, HLD, hearing loss bilaterally and chronic constipation on daily Miralax who initially presented complaining of left flank and chest pain, one day after mechanical fall onto left side. Since his admission, patient has not had a bowel movement, though he endorses a normal appetite and is passing gas and urinating normally. He now denies any abdominal pain, nausea, vomiting, diarrhea. Patient describes his normal bowel habits as 1-3 bowel movements weekly, always with straining and hard stools. He denies any recent changes in his bowel habits or character of his stool. He denies taking any narcotic pain medications at home, though percocet is listed as one of his home medications per EMR. Patient also has history of colonic polyps and Barrets esophagus. Last EGD/ Colonoscopy one year ago, significant for benign nodules in the esophagus, and one tubulovillous adenoma and one tubular adenoma in the colon. All other ROS in 12-system review negative. PMH: as above PSH: s/p LN biopsy of thorax, R inguinal hernia repair (2011), appy, ex-lap w/ finding of clot, Cardiac cath and stenting SHx: former heavy tobacco user (~50 yrs of 2ppd on average, quit > 15 years ago) , rare ETOH use, denies illicits/IVDA drug use FHx: CAD (Father) Past Patient History - Infectious Disease Hx of Infectious Diseases: None - Tetanus Immunizations Tetanus Immunization: Unknown - Past Medical History & Family History Past Medical History?: Yes - Past Social History Smoking Status: Former Smoker - CARDIAC Hx Cardiac Disorders: Yes Hx Congestive Heart Failure: Yes (silent NE) Hx Hypertension: Yes - PULMONARY Hx Chronic Obstructive Pulmonary Disease (COPD): Yes - NEUROLOGICAL Hx Neurological Disorder: Yes - HEENT Hx HEENT Problems: Yes Other/Comment: Left CHITIMACHA - RENAL Hx Chronic Kidney Disease: Yes Other/Comment: Kidney Cyst- benign - ENDOCRINE/METABOLIC Hx Hypothyroidism: Yes - HEMATOLOGICAL/ONCOLOGICAL Hx Blood Disorders: Yes - INTEGUMENTARY Hx Dermatological Problems: Yes Other/Comment: Dermatitis. Vitiligo - MUSCULOSKELETAL/RHEUMATOLOGICAL Hx Musculoskeletal Disorders: Yes Hx Falls: No - GASTROINTESTINAL Hx Gastrointestinal Disorders: Yes Hx Gastroesophageal Reflux: Yes Other/Comment: Endoscopy upper/lower- baretts. Polyps removed. Colonoscopy 7 months ago. - GENITOURINARY/GYNECOLOGICAL Hx Genitourinary Disorders: Yes Hx Prostate Problems: Yes (BPH) Other/Comment: Urgency in urination. Erectile Dysfunction. Right hydrocoele ( Scrotum) - PSYCHIATRIC Hx Emotional Abuse: No Hx Physical Abuse: No Hx Substance Use: No - SURGICAL HISTORY Hx Appendectomy: Yes Hx Cardiac Catheterization: Yes Hx Orthopedic Surgery: Yes Other/Comment: ex-lap, right elbow repair, left elbow rotator cuff repair 2016 - ANESTHESIA Hx Anesthesia: Yes Hx Anesthesia Reactions: Yes ("BLEEDING FROM AIRWAY USED") Hx Malignant Hyperthermia: No Meds Allergies/Adverse Reactions: Allergies Allergy/AdvReac Type Severity Reaction Status Date / Time tape AdvReac REDNESS Uncoded 12/22/16 06:42 - Medications Medications: Current Medications Acetylcysteine (Acetylcysteine 20%) 4 ml IH [id number] [facility] Last Admin: 12/26/16 07:23 Dose: 4 ml Armodafinil (Nuvigil 250 Mg Tab) 250 mg PO HS [facility] Last Admin: 12/25/16 21:39 Dose: 250 mg Ascorbic Acid (Vitamin C 500 Mg Tab) 1,000 mg PO QAM [facility] Last Admin: 12/26/16 09:23 Dose: 1,000 mg Aspirin (Ecotrin) 325 mg PO DAILY [facility] Last Admin: 12/26/16 09:25 Dose: 325 mg Atorvastatin Calcium (Lipitor) 40 mg PO DIN [facility] Last Admin: 12/25/16 17:30 Dose: 40 mg Bacitracin (Bacitracin) 0 gm TOP DAILY [facility] Last Admin: 12/26/16 09:31 Dose: 1 applic Budesonide (Pulmicort Respules) 0.5 mg IH [id number] [facility] Last Admin: 12/26/16 07:23 Dose: 0.5 mg Bupropion HCl (Wellbutrin) 100 mg PO DAILY [facility] Last Admin: 12/25/16 09:26 Dose: 100 mg Cholecalciferol (Vitamin D) 1,000 iu PO DAILY [facility] Last Admin: 12/26/16 09:28 Dose: 1,000 iu Cyclobenzaprine HCl (Flexeril) 5 mg PO TID [facility] Last Admin: 12/26/16 09:29 Dose: 5 mg Docusate Sodium (Colace) 100 mg PO TID [facility] Last Admin: 12/26/16 09:23 Dose: 100 mg Gabapentin (Neurontin) 100 mg PO BID [facility] PRN Reason: Protocol Last Admin: 12/26/16 09:24 Dose: 100 mg Guaifenesin (Robitussin) 200 mg PO Q4H PRN PRN Reason: Cough and congestion Last Admin: 12/24/16 09:34 Dose: 200 mg Hydromorphone HCl (Dilaudid) 1.5 mg IVP Q4H PRN PRN Reason: Pain, moderate (4-7) Last Admin: 12/26/16 08:26 Dose: 1.5 mg Levofloxacin/Dextrose (Levaquin 750mg) 750 mg in 150 mls @ 100 mls/hr IVPB DAILY [facility] Last Admin: 12/26/16 09:31 Dose: 100 mls/hr Sodium Chloride (Sodium Chloride 0.9%) 1,000 mls @ 100 mls/hr IV .Q10H [facility] Last Admin: 12/26/16 02:50 Dose: 100 mls/hr Levalbuterol HCl (Xopenex) 0.63 mg IH [id number] [facility] Last Admin: 12/26/16 07:23 Dose: 0.63 mg Levalbuterol HCl (Xopenex) 0.63 mg IH Q2 PRN PRN Reason: Shortness of Breath Last Admin: 12/24/16 16:20 Dose: 0.63 mg Levothyroxine Sodium (Synthroid) 175 mcg PO DAILY [facility] Last Admin: 12/26/16 09:29 Dose: 175 mcg Lidocaine (Lidoderm) 1 ea TD DAILY [facility] Last Admin: 12/26/16 09:30 Dose: 1 ea Lisinopril (Zestril) 2.5 mg PO DAILY [facility] Last Admin: 12/26/16 09:25 Dose: 2.5 mg Mirtazapine (Remeron) 15 mg PO HS [facility] Last Admin: 12/25/16 21:39 Dose: 15 mg Montelukast Sodium (Singulair) 10 mg PO HS [facility] Last Admin: 12/25/16 21:39 Dose: 10 mg Multivitamins (Thera Tab) 1 tab PO DAILY [facility] Last Admin: 12/25/16 09:26 Dose: 1 tab Non-Formulary Medication (Guaifenesin [Mucus Relief]) 1 tab PO DAILY [facility] Last Admin: 12/25/16 09:30 Dose: Not Given Non-Formulary Medication (Multivit-Min/Fa/Lycopen/Lutein [Centrum Silver Tablet] ) 1 tab PO DAILY [facility] Last Admin: 12/25/16 09:30 Dose: Not Given Non-Formulary Medication ([place]-3 Fatty Acids/Fish Oil [[place] 3 Fish Oil Softgel ]) 300 mg PO DAILY [facility] Last Admin: 12/25/16 09:30 Dose: Not Given Pantoprazole Sodium (Protonix Ec Tab) 40 mg PO 0600 [facility] Last Admin: 12/26/16 06:39 Dose: 40 mg Prasugrel (Effient) 10 mg PO DAILY [facility] Last Admin: 12/26/16 09:25 Dose: 10 mg Tiotropium [place] (Spiriva) 18 mcg IH DAILY [facility] Last Admin: 12/26/16 09:29 Dose: 18 mcg Venlafaxine HCl (Effexor) 75 mg PO DAILY [facility] Last Admin: 12/25/16 09:26 Dose: 75 mg Physical Exam - Constitutional Appears: Non-toxic, In Acute Distress (mild distress due to rib pain), Chronically Ill - Head Exam Head Exam: ATRAUMATIC, NORMOCEPHALIC - Eye Exam Eye Exam: EOMI, Normal appearance - ENT Exam ENT Exam: Mucous Membranes Moist - Neck Exam Neck exam: Positive for: Normal Inspection - Respiratory Exam Respiratory Exam: Rhonchi, NORMAL BREATHING PATTERN - Cardiovascular Exam Cardiovascular Exam: REGULAR RHYTHM, +S1, +S2 - GI/Abdominal Exam Additional comments: Abdomen grossly distended, tense, and tympanitic. No tenderness, rebound, gaurding, or rigidity. Normoactive bowel sounds. - Rectal Exam Rectal Exam: Deferred - Extremities Exam Extremities exam: Negative for: calf tenderness, pedal edema - Neurological Exam Neurological exam: Alert, Oriented x3 - Psychiatric Exam Psychiatric exam: Normal Affect, Normal Mood - Skin Skin Exam: Dry, Intact Results - Vital Signs Recent Vital Signs: Last Vital Signs Temp 97.7 F 12/26/16 08:41 Pulse 119 H 12/26/16 08:41 Resp 22 12/26/16 08:41 BP 123/67 12/26/16 08:41 Pulse Ox 91 L 12/26/16 08:41 - Labs Result Diagrams: 12/26/16 09:40 12/26/16 09:40 Labs: Laboratory Results - last 24 hr 12/26/16 09:40 WBC 16.3 H RBC 3.52 Hgb 10.1 L Hct 31.5 L MCV 89.5 MCH 28.7 MCHC 32.1 RDW 15.4 H Plt Count 210 MPV 8.9 Gran % 73.8 H Lymph % (Auto) 16.1 L [place] % (Auto) 8.4 H Eos % (Auto) 1.5 Baso % (Auto) 0.2 Gran # 12.05 H Lymph # 2.6 [place] # 1.4 H Eos # 0.3 Baso # 0.03 Assessment & Plan - Assessment and Plan (Free Text) Assessment: 76 yo M with PMH significant for MS (chronic R-sided muscle weakness), NE s/p 2 stents, hypothyroidism, COPD, HTN, HLD, s/p NE w/SAGAR x 2, and chronic constipation who initially presented for rib pain s/p fall, being actively treated for multiple rib fractures, leukocytosis, and constipation >CT C/A/P on admission significant for rib fractures; large amount of gas and stool noted through the length of the colon on review of images >Abdomen XR yesterday negative for signs of obstruction >TSH wnl >Patient has not had a BM since admission, but is passing flatus and is tolerating PO without nausea/emesis >Patient notes that this is similar to his routine bowel habits at home >Chronic constipation likely multifactorial, 2/2 narcotic medication vs hypothyroidism vs multiple sclerosis; now with acute worsening due to increased inpatient pain regimen >Patient takes miralax daily at home; currently on miralax BID, colace, and did receive a one time dose of Relistor yesterday, still without bowel movement >Patient did not permit rectal exam; explained significance of impaction, but patient still deferred >Recommend increasing miralax to QID, and one time dose of dulcolax PO >Will continue to follow clinical course Patient seen, discussed, and reviewed with attending <Naveed Cuellar MD - Last Filed: 12/26/16 16:33> Meds - Medications Medications: Current Medications Acetylcysteine (Acetylcysteine 20%) 4 ml IH [id number] [facility] Last Admin: 12/26/16 14:16 Dose: 4 ml Ascorbic Acid (Vitamin C 500 Mg Tab) 1,000 mg PO QAM [facility] Last Admin: 12/26/16 09:23 Dose: 1,000 mg Aspirin (Ecotrin) 325 mg PO DAILY [facility] Last Admin: 12/26/16 09:25 Dose: 325 mg Atorvastatin Calcium (Lipitor) 40 mg PO DIN [facility] Last Admin: 12/25/16 17:30 Dose: 40 mg Bacitracin (Bacitracin) 0 gm TOP DAILY [facility] Last Admin: 12/26/16 09:31 Dose: 1 applic Budesonide (Pulmicort Respules) 0.5 mg IH [id number] [facility] Last Admin: 12/26/16 07:23 Dose: 0.5 mg Bupropion HCl (Wellbutrin) 100 mg PO DAILY [facility] Last Admin: 12/26/16 09:25 Dose: 100 mg Cholecalciferol (Vitamin D) 1,000 iu PO DAILY [facility] Last Admin: 12/26/16 09:28 Dose: 1,000 iu Cyclobenzaprine HCl (Flexeril) 5 mg PO TID [facility] Last Admin: 12/26/16 13:02 Dose: 5 mg Gabapentin (Neurontin) 300 mg PO TID [facility] PRN Reason: Protocol Last Admin: 12/26/16 13:14 Dose: 300 mg Guaifenesin (Robitussin) 200 mg PO Q4H PRN PRN Reason: Cough and congestion Last Admin: 12/24/16 09:34 Dose: 200 mg Hydromorphone HCl (Dilaudid) 1 mg SC Q4H PRN PRN Reason: Pain, moderate (4-7) Sodium Chloride (Sodium Chloride 0.9%) 1,000 mls @ 100 mls/hr IV .Q10H [facility] Last Admin: 12/26/16 02:50 Dose: 100 mls/hr Levalbuterol HCl (Xopenex) 0.63 mg IH [id number] [facility] Last Admin: 12/26/16 14:16 Dose: 0.63 mg Levalbuterol HCl (Xopenex) 0.63 mg IH Q2 PRN PRN Reason: Shortness of Breath Last Admin: 12/24/16 16:20 Dose: 0.63 mg Levofloxacin (Levaquin) 750 mg PO Q48H [facility] Levothyroxine Sodium (Synthroid) 175 mcg PO DAILY [facility] Last Admin: 12/26/16 09:29 Dose: 175 mcg Lidocaine (Lidoderm) 1 ea TD DAILY [facility] Last Admin: 12/26/16 09:30 Dose: 1 ea Lisinopril (Zestril) 2.5 mg PO DAILY [facility] Last Admin: 12/26/16 09:25 Dose: 2.5 mg Mirtazapine (Remeron) 15 mg PO HS [facility] Last Admin: 12/25/16 21:39 Dose: 15 mg Montelukast Sodium (Singulair) 10 mg PO HS [facility] Last Admin: 12/25/16 21:39 Dose: 10 mg Multivitamins (Thera Tab) 1 tab PO DAILY [facility] Last Admin: 12/26/16 09:25 Dose: 1 tab Non-Formulary Medication (Guaifenesin [Mucus Relief]) 1 tab PO DAILY [facility] Last Admin: 12/26/16 13:06 Dose: Not Given Non-Formulary Medication (Multivit-Min/Fa/Lycopen/Lutein [Centrum Silver Tablet] ) 1 tab PO DAILY [facility] Last Admin: 12/26/16 13:07 Dose: Not Given Non-Formulary Medication ([place]-3 Fatty Acids/Fish Oil [[place] 3 Fish Oil Softgel ]) 300 mg PO DAILY [facility] Last Admin: 12/26/16 13:07 Dose: Not Given Oxycodone/Acetaminophen (Percocet 5/325 Mg Tab) 2 tab PO Q4H PRN PRN Reason: Pain, moderate (4-7) Stop: 12/29/16 13:01 Pantoprazole Sodium (Protonix Ec Tab) 40 mg PO 0600 [facility] Last Admin: 12/26/16 06:39 Dose: 40 mg Polyethylene Glycol (Miralax) 17 gm PO QID [facility] Last Admin: 12/26/16 13:02 Dose: 17 gm Prasugrel (Effient) 10 mg PO DAILY [facility] Last Admin: 12/26/16 09:25 Dose: 10 mg Tiotropium [place] (Spiriva) 18 mcg IH DAILY [facility] Last Admin: 12/26/16 09:29 Dose: 18 mcg Venlafaxine HCl (Effexor) 75 mg PO DAILY [facility] Last Admin: 12/26/16 09:25 Dose: 75 mg Results - Vital Signs Recent Vital Signs: Last Vital Signs Temp 97.7 F 12/26/16 08:41 Pulse 119 H 12/26/16 08:41 Resp 22 12/26/16 08:41 BP 123/67 12/26/16 08:41 Pulse Ox 91 L 12/26/16 08:41 - Labs Result Diagrams: 12/26/16 09:40 12/26/16 09:40 Labs: Laboratory Results - last 24 hr 12/26/16 12/26/16 09:40 09:40 WBC 16.3 H RBC 3.52 Hgb 10.1 L Hct 31.5 L MCV 89.5 MCH 28.7 MCHC 32.1 RDW 15.4 H Plt Count 210 MPV 8.9 Gran % 73.8 H Lymph % (Auto) 16.1 L [place] % (Auto) 8.4 H Eos % (Auto) 1.5 Baso % (Auto) 0.2 Gran # 12.05 H Lymph # 2.6 [place] # 1.4 H Eos # 0.3 Baso # 0.03 Sodium 136 Potassium 4.3 Chloride 108 H Carbon Dioxide 26 Anion Gap 6 L BUN 34 H Creatinine 1.3 Est GFR ( Amer) > 60 Est GFR (Non-Af Amer) 54 Random Glucose 110 Calcium 9.6 Phosphorus 3.6 Magnesium 2.4 H Total Bilirubin 0.8 AST 82 H D ALT 55 Alkaline Phosphatase 136 H D Total Protein 6.2 Albumin 3.2 Globulin 3.0 Albumin/Globulin Ratio 1.1 Attending/Attestation - Attestation I have personally seen and examined this patient.: Yes I have fully participated in the care of the patient.: Yes I have reviewed all pertinent clinical information: Yes Notes (Text): 12/26/16 16:20 Patient seen with GI fellow on rounds. This is a 76 yo M with PMH significant for MS (chronic R-sided muscle weakness), NE s/p 2 stents, hypothyroidism, COPD , HTN, HLD, s/p NE w/SAGAR x 2, and chronic constipation who initially presented for rib pain s/p fall, being actively treated for multiple rib fractures, leukocytosis, and constipation. Imaging shows large amount of stool. No s/s of obstruction. TSH wnl. On multiple pain medications and history of multiple sclerosis. Stringent bowel regimen with mineral oil enemas. Patient refusing rectal exam and enemas. Supportive care
[2016-12-26 11:20] LABS: ALB/GLOB RATIO 1.1 (1.1-1.8); ALKALINE PHOSPHATASE 136 U/L (38-126); ALT/SGPT 55 U/L (7-56); AST/SGOT 82 U/L (17-59); BILIRUBIN,TOTAL 0.8 mg/dL (0.2-1.3); BLOOD UREA NITROGEN 34 mg/dL (7-21); CALCIUM 9.6 mg/dL (8.4-10.5); CARBON DIOXIDE 26 mmol/L (21-33); CHLORIDE 108 mmol/L (98-107); GFR AFRICAN-AMERICAN > 60; GLUCOSE,RANDOM 110 mg/dL (70-110); MAGNESIUM 2.4 mg/dL (1.7-2.2); PHOSPHOROUS 3.6 mg/dL (2.5-4.5); TOTAL PROTEIN 6.2 g/dL (5.8-8.3)
--- NOTE | 2016-12-26 11:36 | CP.PCM.PN ---
Subjective - Date & Time of Evaluation Date of Evaluation: 12/26/16 Time of Evaluation: 11:34 - Subjective Subjective: General Surgery Progress Note for Dr. Choi This patient was seenand examned this morning at bedside. No acute events overnight. He reports continued pain which he reports responds to dilaudid. Discussed with pt possibility of d/c to rehab. Objective - Vital Signs/Intake and Output Vital Signs (last 24 hours): Temp Pulse Resp BP Pulse Ox 97.7 F 119 H 22 123/67 91 L 12/26/16 08:41 12/26/16 08:41 12/26/16 08:41 12/26/16 08:41 12/26/16 08:41 Intake and Output: 12/26/16 12/26/16 06:59 18:59 Intake Total 3060 Output Total 1000 Balance 2060 - Medications Medications: Current Medications Acetylcysteine (Acetylcysteine 20%) 4 ml IH [id number] [facility] Last Admin: 12/26/16 07:23 Dose: 4 ml Armodafinil (Nuvigil 250 Mg Tab) 250 mg PO HS [facility] Last Admin: 12/25/16 21:39 Dose: 250 mg Ascorbic Acid (Vitamin C 500 Mg Tab) 1,000 mg PO QAM [facility] Last Admin: 12/26/16 09:23 Dose: 1,000 mg Aspirin (Ecotrin) 325 mg PO DAILY [facility] Last Admin: 12/26/16 09:25 Dose: 325 mg Atorvastatin Calcium (Lipitor) 40 mg PO DIN [facility] Last Admin: 12/25/16 17:30 Dose: 40 mg Bacitracin (Bacitracin) 0 gm TOP DAILY [facility] Last Admin: 12/26/16 09:31 Dose: 1 applic Budesonide (Pulmicort Respules) 0.5 mg IH [id number] [facility] Last Admin: 12/26/16 07:23 Dose: 0.5 mg Bupropion HCl (Wellbutrin) 100 mg PO DAILY [facility] Last Admin: 12/25/16 09:26 Dose: 100 mg Cholecalciferol (Vitamin D) 1,000 iu PO DAILY [facility] Last Admin: 12/26/16 09:28 Dose: 1,000 iu Cyclobenzaprine HCl (Flexeril) 5 mg PO TID [facility] Last Admin: 12/26/16 09:29 Dose: 5 mg Docusate Sodium (Colace) 100 mg PO TID [facility] Last Admin: 12/26/16 09:23 Dose: 100 mg Gabapentin (Neurontin) 100 mg PO BID [facility] PRN Reason: Protocol Last Admin: 12/26/16 09:24 Dose: 100 mg Guaifenesin (Robitussin) 200 mg PO Q4H PRN PRN Reason: Cough and congestion Last Admin: 12/24/16 09:34 Dose: 200 mg Hydromorphone HCl (Dilaudid) 1.5 mg IVP Q4H PRN PRN Reason: Pain, moderate (4-7) Last Admin: 12/26/16 08:26 Dose: 1.5 mg Levofloxacin/Dextrose (Levaquin 750mg) 750 mg in 150 mls @ 100 mls/hr IVPB DAILY [facility] Last Admin: 12/26/16 09:31 Dose: 100 mls/hr Sodium Chloride (Sodium Chloride 0.9%) 1,000 mls @ 100 mls/hr IV .Q10H [facility] Last Admin: 12/26/16 02:50 Dose: 100 mls/hr Levalbuterol HCl (Xopenex) 0.63 mg IH [id number] [facility] Last Admin: 12/26/16 07:23 Dose: 0.63 mg Levalbuterol HCl (Xopenex) 0.63 mg IH Q2 PRN PRN Reason: Shortness of Breath Last Admin: 12/24/16 16:20 Dose: 0.63 mg Levothyroxine Sodium (Synthroid) 175 mcg PO DAILY [facility] Last Admin: 12/26/16 09:29 Dose: 175 mcg Lidocaine (Lidoderm) 1 ea TD DAILY [facility] Last Admin: 12/26/16 09:30 Dose: 1 ea Lisinopril (Zestril) 2.5 mg PO DAILY [facility] Last Admin: 12/26/16 09:25 Dose: 2.5 mg Mirtazapine (Remeron) 15 mg PO HS [facility] Last Admin: 12/25/16 21:39 Dose: 15 mg Montelukast Sodium (Singulair) 10 mg PO HS [facility] Last Admin: 12/25/16 21:39 Dose: 10 mg Multivitamins (Thera Tab) 1 tab PO DAILY [facility] Last Admin: 12/25/16 09:26 Dose: 1 tab Non-Formulary Medication (Guaifenesin [Mucus Relief]) 1 tab PO DAILY [facility] Last Admin: 12/25/16 09:30 Dose: Not Given Non-Formulary Medication (Multivit-Min/Fa/Lycopen/Lutein [Centrum Silver Tablet] ) 1 tab PO DAILY [facility] Last Admin: 12/25/16 09:30 Dose: Not Given Non-Formulary Medication ([place]-3 Fatty Acids/Fish Oil [[place] 3 Fish Oil Softgel ]) 300 mg PO DAILY [facility] Last Admin: 12/25/16 09:30 Dose: Not Given Pantoprazole Sodium (Protonix Ec Tab) 40 mg PO 0600 [facility] Last Admin: 12/26/16 06:39 Dose: 40 mg Polyethylene Glycol (Miralax) 17 gm PO QID [facility] Prasugrel (Effient) 10 mg PO DAILY [facility] Last Admin: 12/26/16 09:25 Dose: 10 mg Tiotropium [place] (Spiriva) 18 mcg IH DAILY [facility] Last Admin: 12/26/16 09:29 Dose: 18 mcg Venlafaxine HCl (Effexor) 75 mg PO DAILY [facility] Last Admin: 12/25/16 09:26 Dose: 75 mg - Labs Labs: 12/26/16 09:40 12/26/16 09:40 PT 15.1 SECONDS (9.4-12.5) H 12/24/16 06:40 INR 1.36 (0.93-1.08) H 12/24/16 06:40 APTT 29.1 Seconds (25.1-36.5) 12/24/16 06:40 - Constitutional Appears: Non-toxic, Other (in obvious pain with deep inspiration) - Head Exam Head Exam: NORMOCEPHALIC - Eye Exam Eye Exam: EOMI, Normal appearance. absent: Scleral icterus - ENT Exam ENT Exam: Mucous Membranes Moist - Neck Exam Neck Exam: absent: Lymphadenopathy - Respiratory Exam Respiratory Exam: Chest Wall Tenderness (left side), Rhonchi, NORMAL BREATHING PATTERN. absent: Accessory Muscle Use, Wheezes, Respiratory Distress - Cardiovascular Exam Cardiovascular Exam: REGULAR RHYTHM - GI/Abdominal Exam GI & Abdominal Exam: Soft. absent: Distended, Firm, Guarding, Rigid, Tenderness - Extremities Exam Extremities Exam: Normal Capillary Refill. absent: Calf Tenderness, Tenderness - Neurological Exam Neurological Exam: Alert, Awake, Oriented x3 - Psychiatric Exam Psychiatric exam: Normal Affect, Normal Mood - Skin Skin Exam: Dry, Warm Additional comments: ecchymoses of different stages of healing throughout body, consistent with mechanical fall Assessment and Plan - Assessment and Plan (Free Text) Assessment: 76M s/p fall complicated by fractured L sided rib 7-9 Continue pain control continue IS f/u primary team possible placement in rehab D/W Dr. Jimbo Florian PGY2
[2016-12-26] MEDS ORDERED: HYDROmorphone 2 mg/ml ISec IVP STA (11:42)
[2016-12-26 11:50] LABS: POTASSIUM 4.3 mmol/L (3.6-5.0); SODIUM 136 mmol/L (132-148)
[2016-12-26] MEDS ORDERED: Oxycodone/Acetaminophen 5/325 mg Tab PO PRN (13:00)
[2016-12-26] MEDS ORDERED: HYDROmorphone 1 mg/ml ISec IVP PRN ×2 (13:02→16:46)
[2016-12-26] MEDS: GUAIFENESIN PO SCH (13:06)
[2016-12-26] MEDS: Non Formulary Medication (Multivit-Min/Fa/Lycopen/Lutein [Centrum Silver Tablet] 1 TAB) PO SCH (13:07)
[2016-12-26] MEDS: FATTY ACIDS PO SCH (13:07)
[2016-12-26] MEDS: FISH OIL PO SCH (13:07)
[2016-12-26] MEDS: OMEGA PO SCH (13:07)
[2016-12-26] MEDS: [UNRECOGNIZED DRUG - OTHER] PO SCH (13:07)
[2016-12-26] MEDS ORDERED: Mineral Oil Enema 135 ml RC ONE (13:14)
[2016-12-26] MEDS ORDERED: HYDROmorphone 1 mg/ml ISec SC PRN (13:51)
--- NOTE | 2016-12-26 16:47 | CP.PCM.PN ---
<Briseida Anderson - Last Filed: 12/26/16 16:48> Subjective - Date & Time of Evaluation Date of Evaluation: 12/26/16 Time of Evaluation: 16:48 - Subjective Subjective: Pgy2 Medicine note for Dr. Hitchcock Patient seen and examined at bedside. Reports still having pain in his left ribs which comes and goes and is requiring pain medications around the clock. Patient denies having a BM but reports it is "coming" and that he is passing gas. Patient aware of possible d/c to [facility] and is requesting to go to [facility] in [place]. Patient is urinating normally and has a good appetite. He continues to have a cough but denies any headache, dizziness, chest pain, palpitations, SOB, abd pain, nausea, or vomiting/ Objective - Vital Signs/Intake and Output Vital Signs (last 24 hours): Temp Pulse Resp BP Pulse Ox 99.1 F 119 H 22 138/85 96 12/26/16 16:00 12/26/16 08:41 12/26/16 16:00 12/26/16 16:00 12/26/16 16:00 Intake and Output: 12/26/16 12/26/16 06:59 18:59 Intake Total 3060 720 Output Total 1000 700 Balance 2060 20 - Medications Medications: Current Medications Acetylcysteine (Acetylcysteine 20%) 4 ml IH [id number] [facility] Last Admin: 12/26/16 14:16 Dose: 4 ml Ascorbic Acid (Vitamin C 500 Mg Tab) 1,000 mg PO QAM [facility] Last Admin: 12/26/16 09:23 Dose: 1,000 mg Aspirin (Ecotrin) 325 mg PO DAILY [facility] Last Admin: 12/26/16 09:25 Dose: 325 mg Atorvastatin Calcium (Lipitor) 40 mg PO DIN [facility] Last Admin: 12/25/16 17:30 Dose: 40 mg Bacitracin (Bacitracin) 0 gm TOP DAILY [facility] Last Admin: 12/26/16 09:31 Dose: 1 applic Budesonide (Pulmicort Respules) 0.5 mg IH [id number] [facility] Last Admin: 12/26/16 07:23 Dose: 0.5 mg Bupropion HCl (Wellbutrin) 100 mg PO DAILY [facility] Last Admin: 12/26/16 09:25 Dose: 100 mg Cholecalciferol (Vitamin D) 1,000 iu PO DAILY [facility] Last Admin: 12/26/16 09:28 Dose: 1,000 iu Cyclobenzaprine HCl (Flexeril) 5 mg PO TID [facility] Last Admin: 12/26/16 13:02 Dose: 5 mg Gabapentin (Neurontin) 300 mg PO TID [facility] PRN Reason: Protocol Last Admin: 12/26/16 13:14 Dose: 300 mg Guaifenesin (Robitussin) 200 mg PO Q4H PRN PRN Reason: Cough and congestion Last Admin: 12/24/16 09:34 Dose: 200 mg Hydromorphone HCl (Dilaudid) 1 mg SC Q4H PRN PRN Reason: Pain, moderate (4-7) Sodium Chloride (Sodium Chloride 0.9%) 1,000 mls @ 100 mls/hr IV .Q10H [facility] Last Admin: 12/26/16 02:50 Dose: 100 mls/hr Levalbuterol HCl (Xopenex) 0.63 mg IH [id number] [facility] Last Admin: 12/26/16 14:16 Dose: 0.63 mg Levalbuterol HCl (Xopenex) 0.63 mg IH Q2 PRN PRN Reason: Shortness of Breath Last Admin: 12/24/16 16:20 Dose: 0.63 mg Levofloxacin (Levaquin) 750 mg PO Q48H [facility] Levothyroxine Sodium (Synthroid) 175 mcg PO DAILY [facility] Last Admin: 12/26/16 09:29 Dose: 175 mcg Lidocaine (Lidoderm) 1 ea TD DAILY [facility] Last Admin: 12/26/16 09:30 Dose: 1 ea Lisinopril (Zestril) 2.5 mg PO DAILY [facility] Last Admin: 12/26/16 09:25 Dose: 2.5 mg Mirtazapine (Remeron) 15 mg PO HS [facility] Last Admin: 12/25/16 21:39 Dose: 15 mg Montelukast Sodium (Singulair) 10 mg PO HS [facility] Last Admin: 12/25/16 21:39 Dose: 10 mg Multivitamins (Thera Tab) 1 tab PO DAILY [facility] Last Admin: 12/26/16 09:25 Dose: 1 tab Non-Formulary Medication (Guaifenesin [Mucus Relief]) 1 tab PO DAILY [facility] Last Admin: 12/26/16 13:06 Dose: Not Given Non-Formulary Medication (Multivit-Min/Fa/Lycopen/Lutein [Centrum Silver Tablet] ) 1 tab PO DAILY [facility] Last Admin: 12/26/16 13:07 Dose: Not Given Non-Formulary Medication (Caro-3 Fatty Acids/Fish Oil [Caro 3 Fish Oil Softgel ]) 300 mg PO DAILY [facility] Last Admin: 12/26/16 13:07 Dose: Not Given Oxycodone/Acetaminophen (Percocet 5/325 Mg Tab) 2 tab PO Q4H PRN PRN Reason: Pain, moderate (4-7) Stop: 12/29/16 13:01 Pantoprazole Sodium (Protonix Ec Tab) 40 mg PO 0600 [facility] Last Admin: 12/26/16 06:39 Dose: 40 mg Polyethylene Glycol (Miralax) 17 gm PO QID [facility] Last Admin: 12/26/16 13:02 Dose: 17 gm Prasugrel (Effient) 10 mg PO DAILY [facility] Last Admin: 12/26/16 09:25 Dose: 10 mg Tiotropium [place] (Spiriva) 18 mcg IH DAILY [facility] Last Admin: 12/26/16 09:29 Dose: 18 mcg Venlafaxine HCl (Effexor) 75 mg PO DAILY [facility] Last Admin: 12/26/16 09:25 Dose: 75 mg - Labs Labs: 12/26/16 09:40 12/26/16 09:40 PT 15.1 SECONDS (9.4-12.5) H 12/24/16 06:40 INR 1.36 (0.93-1.08) H 12/24/16 06:40 APTT 29.1 Seconds (25.1-36.5) 12/24/16 06:40 - Constitutional Appears: Non-toxic, In Acute Distress (with deep inspiration) - Head Exam Head Exam: ATRAUMATIC, NORMAL INSPECTION, NORMOCEPHALIC - Eye Exam Eye Exam: EOMI, Normal appearance, PERRL. absent: Conjunctival injection, Scleral icterus - ENT Exam ENT Exam: Mucous Membranes Moist - Neck Exam Neck Exam: Normal Inspection - Respiratory Exam Respiratory Exam: Chest Wall Tenderness (left side), Rhonchi, Wheezes, NORMAL BREATHING PATTERN. absent: Accessory Muscle Use, Respiratory Distress - Cardiovascular Exam Cardiovascular Exam: REGULAR RHYTHM, RRR, +S1, +S2. absent: Murmur - GI/Abdominal Exam GI & Abdominal Exam: Distended, Soft, Normal Bowel Sounds. absent: Firm, Guarding, Rigid - Extremities Exam Extremities Exam: Normal Capillary Refill Additional comments: Left knee with dressings in place - c/d/i Left elbow with dressing in place - c/d/i Patient reports severe pain in left LE with flexion of knee and hip. DP/PT pulse 2+ b/l - Neurological Exam Neurological Exam: Alert, Awake, Oriented x3 - Psychiatric Exam Psychiatric exam: Normal Affect, Normal Mood - Skin Skin Exam: Dry, Intact Additional comments: ecchymoses of different stages of healing throughout body, consistent with mechanical fall Assessment and Plan - Assessment and Plan (Free Text) Assessment: 76 yo male PMHx of MS (chronic R-sided muscle weakness), [place] s/p 2 stents, hypothyroidism, chronic constipation on daily Miralax, hydrocele, COPD, HTN, HLD , s/p WA w/SAGAR x 2, and hearing loss bilaterally admitted for close monitoring and management of multiple rib fracture 2/2 traumatic mechanical fall Plan: Traumatic mechanical fall resulting in intractable chest pain - pain likely secondary to rib fractures - fall described as mechanical, with component 2/2 MS (right sided weakness at baseline, ?unstable gait) - CT chest: notable for ribs fractures, left ribs 7-9, 7 and 8 mildly displaced , 9 non-displaced, no PE, no pneumothorax/hemothorax noted - Chest binder in place - IS to prevent worsening atelectasis, avoid predisposing to pneumonia - Pain regimen as per surgery - Surgery following - Pulm following - Pain management consulted regarding nerve block - Out of bed to chair as tolerated - PT to assess, may require [facility] after discharge - Anesthesia evaluated patient regarding nerve blocks to manage pain and upon discussion with pain management, Dr. Mcdermott, recommendation is Neurontin, Percocet , and Lidocaine patch. Contact for Dr. Mcdermott and Dr. Solitario at [facility] as follows: [phone] Hx MS with R-sided weakness - likely contributory to mechanical fall - continue home MS medications - Phyical Therapy - MS reported as stable and well managed, no need for Neuro consult at this time Hypothyroid - continue home synthroid - TSH, Free T4, Total T3 wnl Chronic constipation - Abdominal x-ray: unremarkable exam - likely due to home pain medication use - Miralax - Colace - Patient received one dose of Relistor COPD - continue Xopenex and home inhalers, Pulmicort in place of home steroid inhaler not on formulary as per Pharmacy - Supplemental O2 as needed to maintain SaO2 > 88% - Pulm consulted HTN - continue home lisinopril at 2.5mg PO daily HLD - Lipitor 40mg PO daily, heart-healthy soft diet Hx WA s/p 2 stents - continue home ASA and Effient Diet: Heart-healthy diet Ppx: Protonix for GI, SCDs for DVT (avoid AC in setting of traumatic fall and fractures) Dispo: awaiting auth to be transferred to [facility] in [place] Home meds listed below as confirmed by [facility] in [place], [place] -Remeron 15mg -Effexor ER 150 -Welbutrin XL 300 -Spiriva -Albuterol inhaler -Singulair -Xopenex -Melquin -Mirtazapine -Synthroid 175mcg -Lisinopril 2.5mg -Nexium 20mg -Effient 10mg -Lipitor 40mg Discussed with Dr. Naldo Anderson PGY2 <Kacie Hitchcock - Last Filed: 12/28/16 14:18> Objective - Vital Signs/Intake and Output Vital Signs (last 24 hours): Temp Pulse Resp BP Pulse Ox 98.6 F 77 22 120/72 92 L 12/28/16 07:30 12/28/16 09:56 12/28/16 07:30 12/28/16 09:56 12/28/16 07:30 Intake and Output: 12/28/16 12/28/16 06:59 18:59 Intake Total 720 Output Total 0 Balance 720 - Labs Labs: 12/27/16 06:40 12/28/16 07:00 PT 15.1 SECONDS (9.4-12.5) H 12/24/16 06:40 INR 1.36 (0.93-1.08) H 12/24/16 06:40 APTT 29.1 Seconds (25.1-36.5) 12/24/16 06:40 Attending/Attestation - Attestation I have personally seen and examined this patient.: Yes I have fully participated in the care of the patient.: Yes I have reviewed all pertinent clinical information, including history, physical exam and plan: Yes Notes (Text): 12/28/16 14:17 Attending note; Patient seen and examined with resident. Patient is alert, awake and oriented. still complaining of chest pain. Patient is a 76 year old male with history of MS with chronic right sided muscle weakness, [place] s/p cardiac stent, hypothyroidism, chronic constipation on daily Miralax, COPD, former smoker, HTN, HLD, and hearing loss bilaterally who [place] [facility] [place]p mechanical [place] and developed multiple rib fractures on the left side. Chest binder in place. Will continue IV analgesics. Surgery consult appreciated. COPD; pulmonary evaluation appreciated. Continue oxygen and xopenex treatment when necessary. Constipation; continue MiraLAX. Colace added. Dulcolax suppository offered. Abdominal x-ray is negative for ileus or obstruction. GI evaluation requested. Continue incentive spirometer. PT evauation appreciated. Possible [facility] placement. Will discuss with healthcare social worker/comp field case manager for discharge planning. Upon discharge patient will follow up with .
--- NOTE | 2016-12-26 20:11 | PN ---
DATE: Tonio Dueñas was seen. The white count is slightly elevated at 6.3, down slightly from yesterday. He is coughing a little bit better. Abdominal x-ray done yesterday was unremarkable. He is coughing better, although he has a considerable amount of pain. Isreal Choi MD
[2016-12-27] MEDS: Acetylcysteine 20% Inhal Soln (4ml) IH SCH ×4 (01:31→20:21)
[2016-12-27] MEDS: Levalbuterol 0.63 MG/3 ML Inhal Soln UD IH SCH ×4 (01:31→20:21)
[2016-12-27] MEDS: Levalbuterol 0.63 MG/3 ML Inhal Soln UD IH PRN (06:40)
[2016-12-27] MEDS: Budesonide 0.5 mg/2 ml Inhal Susp UD IH SCH ×3 (06:40→20:21)
[2016-12-27 06:50] LABS: ARTERIAL BLOOD GAS HCO3 20.6 mmol/L (21-28); ARTERIAL BLOOD GAS PH 7.39 (7.35-7.45)
[2016-12-27 07:16] LABS: BASO # 0.03 K/mm3 (0.0-2.0); BASO % 0.2 % (0.0-3.0); EOS # 0.2 (0.0-0.7); EOS % 1.4 % (1.5-5.0); GRAN # 10.06 (1.4-6.5); GRAN % 71.3 % (50.0-68.0); HEMATOCRIT 29.7 % (42.0-52.0); LYMPH # 2.5 (1.2-3.4); LYMPH % 17.7 % (22.0-35.0); MEAN CELL VOLUME 89.2 fl (80.0-105.0); MEAN CORPUSCULAR HEMOGLOBIN 28.5 pg (25.0-35.0); MEAN PLATELET VOLUME 8.8 fl (7.0-11.0); MONO # 1.3 (0.1-0.6); MONO % 9.4 % (1.0-6.0); RED CELL DISTRIBUTION WIDTH 15.4 % (11.5-14.5); WHITE BLOOD COUNT 14.1 10^3/ul (4.5-11.0)
--- NOTE | 2016-12-27 07:16 | PN ---
DATE: 12/27/2016 SUBJECTIVE: The patient is very lethargic this morning. He is hard to arouse. He is mildly short of breath, but in no acute distress. PHYSICAL EXAMINATION: VITAL SIGNS: Temperature is 98.9, pulse at the present time is approximately 100, respiratory rate is 22, and blood pressure is 128/81. Oxygen saturation on nasal cannula ranges between 91% to 96%. HEENT: Normocephalic and atraumatic. NECK: No JVD. CARDIOVASCULAR: Positive S1 and S2. No S3 or gallop. LUNGS: Decreased breath sounds at the bases. Scattered loose rhonchi bilaterally. No wheezing. EXTREMITIES: No clubbing, cyanosis or edema. Calves are nontender to palpation. GASTROINTESTINAL: Abdomen is soft, nontender and nondistended. Bowel sounds are positive. SKIN: No acute rash. NEUROLOGIC: Exam is limited at the present time. IMPRESSION 1. Multiple left-sided rib fractures. 2. Status post fall at home. 3. Chronic obstructive pulmonary disease. 4. Mild bronchospasm. 5. Bibasilar atelectasis. 6. Multiple sclerosis. PLAN: The patient is very lethargic this morning. He is hard to arouse. When aroused, he started to scream, and then went back to sleep. I did discuss the case with the night nurse at length. The night nurse did state that the patient was up most of the night. The night nurse also states that the last pain medication was at 5:00 p.m. yesterday. I will check a stat arterial blood gas - to more adequately assess the patient's ventilation/ oxygenation. I also discussed the case with the respiratory therapist at length. I will continue the current nebulizer treatments and inhaled steroids for now. Repeat chest x-ray is also ordered. The surgical input is noted. The patient's clinical status is guarded at this point in time. Additional pulmonary intervention will be based on the above results, as well as the clinical status of the patient. I will discuss the above with the attending physician later this morning. Amanuel Riggins MD [facility]
[2016-12-27] MEDS: Pantoprazole 40 mg EC Tab PO SCH (07:49)
[2016-12-27 08:00] LABS: ALKALINE PHOSPHATASE 186 U/L (38-126); ALT/SGPT 131 U/L (7-56); AST/SGOT 169 U/L (17-59); BILIRUBIN,TOTAL 0.8 mg/dL (0.2-1.3); BLOOD UREA NITROGEN 31 mg/dL (7-21); CALCIUM 9.2 mg/dL (8.4-10.5); CARBON DIOXIDE 21 mmol/L (21-33); CHLORIDE 108 mmol/L (98-107); GFR AFRICAN-AMERICAN > 60; GLUCOSE,RANDOM 96 mg/dL (70-110); POTASSIUM 4.3 mmol/L (3.6-5.0); SODIUM 138 mmol/L (132-148); TOTAL PROTEIN 6.1 g/dL (5.8-8.3)
[2016-12-27] MEDS: Morphine 2 mg/ml ISec IVP PRN ×3 (08:35→23:37)
--- NOTE | 2016-12-27 08:42 | RAD ---
HISTORY: LETHARGIC COMPARISON: 12/24/2016 FINDINGS: LUNGS: There is a new infiltrate in the right upper lobe and at the right lung base consistent with pneumonia PLEURA: No significant pleural effusion identified, no pneumothorax apparent. CARDIOVASCULAR: Moderate cardiomegaly OSSEOUS STRUCTURES: No significant abnormalities. VISUALIZED UPPER ABDOMEN: Normal. OTHER FINDINGS: None. IMPRESSION: New right-sided infiltrates consistent with pneumonia
[2016-12-27] MEDS ORDERED: Benzocaine/Menthol (Cepacol) Lozenge MT ONE (09:35)
--- NOTE | 2016-12-27 09:47 | CP.PCM.PN ---
<Moose Zepeda - Last Filed: 12/27/16 09:41> Subjective - Date & Time of Evaluation Date of Evaluation: 12/27/16 Time of Evaluation: 06:30 - Subjective Subjective: Moose Zepeda DO PGY1 - GI Progress Note for Dr. Sebastian Patient seen and examined at bedside. Nurse reports that overnight, patient was restless and did not sleep much, would wake up, scream in pain, then fall asleep , but did not request pain meds. Patient became lethargic and responsive only to painful stimuli this morning. On initial exam, patient was lethargic, difficult to arouse, responsive only to painful stimuli. Two hours later, patient was found to be awake, alert, oriented, conversational, though still complaining of left rib pain. At that time, patient denies any recent bowel movement, and then said that his normal bowel habits at home is to have one bowel movement every three weeks, rather than 1-3 times weekly, as he had previously stated. He denies any abdominal pain, nausea, vomiting, diarrhea. He is frustrated with everyone's concern about his constipation, and claims that this is normal for him. Objective - Vital Signs/Intake and Output Vital Signs (last 24 hours): Temp Pulse Resp BP Pulse Ox 97.8 F 110 H 22 143/93 H 92 L 12/27/16 07:30 12/27/16 07:30 12/27/16 07:30 12/27/16 08:27 12/27/16 07:30 Intake and Output: 12/27/16 12/27/16 06:59 18:59 Intake Total 4400 Output Total 1700 Balance 2700 - Medications Medications: Current Medications Acetylcysteine (Acetylcysteine 20%) 4 ml IH [id number] [facility] Last Admin: 12/27/16 06:40 Dose: 4 ml Ascorbic Acid (Vitamin C 500 Mg Tab) 1,000 mg PO QAM [facility] Last Admin: 12/26/16 09:23 Dose: 1,000 mg Aspirin (Ecotrin) 325 mg PO DAILY [facility] Last Admin: 12/26/16 09:25 Dose: 325 mg Atorvastatin Calcium (Lipitor) 40 mg PO DIN [facility] Last Admin: 12/26/16 19:42 Dose: 40 mg Bacitracin (Bacitracin) 0 gm TOP DAILY [facility] Last Admin: 12/26/16 09:31 Dose: 1 applic Bisacodyl (Dulcolax) 10 mg RC BID PRN PRN Reason: constipation Budesonide (Pulmicort Respules) 0.5 mg IH [id number] [facility] Last Admin: 12/27/16 06:40 Dose: 0.5 mg Bupropion HCl (Wellbutrin) 100 mg PO DAILY [facility] Last Admin: 12/26/16 09:25 Dose: 100 mg Cholecalciferol (Vitamin D) 1,000 iu PO DAILY [facility] Last Admin: 12/26/16 09:28 Dose: 1,000 iu Cyclobenzaprine HCl (Flexeril) 5 mg PO TID [facility] Last Admin: 12/26/16 19:42 Dose: 5 mg Enoxaparin Sodium (Lovenox) 30 mg SC DAILY [facility] PRN Reason: Protocol Gabapentin (Neurontin) 300 mg PO TID [facility] PRN Reason: Protocol Last Admin: 12/26/16 19:42 Dose: 300 mg Guaifenesin (Robitussin) 200 mg PO Q4H PRN PRN Reason: Cough and congestion Last Admin: 12/24/16 09:34 Dose: 200 mg Levofloxacin/Dextrose (Levaquin 750mg) 750 mg in 150 mls @ 100 mls/hr IVPB DAILY [facility] Levalbuterol HCl (Xopenex) 0.63 mg IH [id number] [facility] Last Admin: 12/27/16 01:31 Dose: 0.63 mg Levalbuterol HCl (Xopenex) 0.63 mg IH Q2 PRN PRN Reason: Shortness of Breath Last Admin: 12/27/16 06:40 Dose: 0.63 mg Levothyroxine Sodium (Synthroid) 175 mcg PO DAILY [facility] Last Admin: 12/26/16 09:29 Dose: 175 mcg Lidocaine (Lidoderm) 1 ea TD DAILY [facility] Last Admin: 12/26/16 09:30 Dose: 1 ea Lisinopril (Zestril) 2.5 mg PO DAILY [facility] Mirtazapine (Remeron) 15 mg PO HS [facility] Last Admin: 12/26/16 22:34 Dose: 15 mg Montelukast Sodium (Singulair) 10 mg PO HS [facility] Last Admin: 12/26/16 22:34 Dose: 10 mg Morphine Sulfate (Morphine) 1 mg IVP Q6 PRN PRN Reason: Pain, severe (8-10) Last Admin: 12/27/16 08:35 Dose: 1 mg Multivitamins (Thera Tab) 1 tab PO DAILY [facility] Last Admin: 12/26/16 09:25 Dose: 1 tab Non-Formulary Medication (Guaifenesin [Mucus Relief]) 1 tab PO DAILY [facility] Last Admin: 12/26/16 13:06 Dose: Not Given Non-Formulary Medication (Multivit-Min/Fa/Lycopen/Lutein [Centrum Silver Tablet] ) 1 tab PO DAILY [facility] Last Admin: 12/26/16 13:07 Dose: Not Given Non-Formulary Medication ([place]-3 Fatty Acids/Fish Oil [[place] 3 Fish Oil Softgel ]) 300 mg PO DAILY [facility] Last Admin: 12/26/16 13:07 Dose: Not Given Oxycodone/Acetaminophen (Percocet 5/325 Mg Tab) 2 tab PO Q4H PRN PRN Reason: Pain, moderate (4-7) Stop: 12/29/16 13:01 Pantoprazole Sodium (Protonix Ec Tab) 40 mg PO 0600 [facility] Last Admin: 12/27/16 07:49 Dose: Not Given Polyethylene Glycol (Miralax) 17 gm PO BID [facility] Prasugrel (Effient) 10 mg PO DAILY [facility] Last Admin: 12/26/16 09:25 Dose: 10 mg Tiotropium [place] (Spiriva) 18 mcg IH DAILY [facility] Last Admin: 12/26/16 09:29 Dose: 18 mcg Venlafaxine HCl (Effexor) 75 mg PO DAILY [facility] Last Admin: 12/26/16 09:25 Dose: 75 mg - Labs Labs: 12/27/16 06:40 12/27/16 06:40 PT 15.1 SECONDS (9.4-12.5) H 12/24/16 06:40 INR 1.36 (0.93-1.08) H 12/24/16 06:40 APTT 29.1 Seconds (25.1-36.5) 12/24/16 06:40 - Constitutional Appears: Non-toxic, In Acute Distress, Chronically Ill - Head Exam Head Exam: ATRAUMATIC, NORMOCEPHALIC - Eye Exam Eye Exam: EOMI, Normal appearance. absent: Scleral icterus - ENT Exam ENT Exam: Normal Exam - Respiratory Exam Respiratory Exam: Rhonchi, NORMAL BREATHING PATTERN - Cardiovascular Exam Cardiovascular Exam: RRR, +S1, +S2 - GI/Abdominal Exam Additional comments: Abdomen grossly distended, firm, and tympanitic. No tenderness, rebound, gaurding, or rigidity. Normoactive bowel sounds. - Extremities Exam Extremities Exam: absent: Calf Tenderness, Pedal Edema Additional comments: Multiple ecchymoses noted on LUE and left hip - Neurological Exam Neurological Exam: Alert, Awake, Oriented x3 - Psychiatric Exam Psychiatric exam: Agitated, Normal Mood - Skin Skin Exam: Dry, Intact Assessment and Plan - Assessment and Plan (Free Text) Assessment: 76 yo M with PMH significant for MS (chronic R-sided muscle weakness), NC s/p 2 stents, hypothyroidism, COPD, HTN, HLD, s/p NC w/SAGAR x 2, and chronic constipation who initially presented for rib pain s/p fall, being actively treated for multiple rib fractures, leukocytosis, and constipation; CT C/A/P significant for rib fractures and large stool in colon, abdomen XR negative for signs of obstruction >Transaminemia noted on CMP today, likely 2/2 polypharmacy; ordered abdominal US to rule out gallbladder or structural pathology - Patient is on many medications including oxycodone w/aceteminophen; he also received two doses of Relistor, which has been associated with variable rates of serum enzyme elevations (0% to 50%), with values above 3 times the upper limit of normal occurring in approximately 1% of patients; typically mild and self limiting, resolving even with continuation of therapy - Patient previously noted to have transaminemia on outpatient basis, and had thorough workup - Negative for MAULIK, mitrochontrial Ab, viral hepatitis, normal ceruloplasmin , and normal immunoglobulins, with borderline elevated smooth muscle antibody - Recheck CMP with AM labs >Patient has still not had a BM since admission, but is passing flatus and is tolerating PO without nausea/emesis; reports that this is normal for him >Chronic constipation likely multifactorial, 2/2 multiple sclerosis vs narcotic medication vs hypothyroidism; now with acute worsening due to increased inpatient pain regimen >Patient again deferred rectal exam, and refuses enemas; Reports that he used suppositories in the past which helped >will change bowel regimen to miralax PO BID with dulcolax NM BID PRNPatient takes miralax daily at home >Will continue to follow clinical course Patient seen, discussed, and reviewed with attending <Kee Sebastian - Last Filed: 12/27/16 10:14> Objective - Vital Signs/Intake and Output Vital Signs (last 24 hours): Temp Pulse Resp BP Pulse Ox 97.8 F 110 H 22 143/93 H 92 L 12/27/16 07:30 12/27/16 07:30 12/27/16 07:30 12/27/16 08:27 12/27/16 07:30 Intake and Output: 12/27/16 12/27/16 06:59 18:59 Intake Total 4400 Output Total 1700 Balance 2700 - Medications Medications: Current Medications Acetylcysteine (Acetylcysteine 20%) 4 ml IH [id number] [facility] Last Admin: 12/27/16 06:40 Dose: 4 ml Ascorbic Acid (Vitamin C 500 Mg Tab) 1,000 mg PO QAM [facility] Last Admin: 12/26/16 09:23 Dose: 1,000 mg Aspirin (Ecotrin) 325 mg PO DAILY [facility] Last Admin: 12/26/16 09:25 Dose: 325 mg Atorvastatin Calcium (Lipitor) 40 mg PO DIN [facility] Last Admin: 12/26/16 19:42 Dose: 40 mg Bacitracin (Bacitracin) 0 gm TOP DAILY [facility] Last Admin: 12/26/16 09:31 Dose: 1 applic Bisacodyl (Dulcolax) 10 mg RC BID PRN PRN Reason: constipation Budesonide (Pulmicort Respules) 0.5 mg IH [id number] [facility] Last Admin: 12/27/16 06:40 Dose: 0.5 mg Bupropion HCl (Wellbutrin) 100 mg PO DAILY [facility] Last Admin: 12/26/16 09:25 Dose: 100 mg Cholecalciferol (Vitamin D) 1,000 iu PO DAILY [facility] Last Admin: 12/26/16 09:28 Dose: 1,000 iu Cyclobenzaprine HCl (Flexeril) 5 mg PO TID [facility] Last Admin: 12/26/16 19:42 Dose: 5 mg Enoxaparin Sodium (Lovenox) 30 mg SC DAILY [facility] PRN Reason: Protocol Gabapentin (Neurontin) 300 mg PO TID [facility] PRN Reason: Protocol Last Admin: 12/26/16 19:42 Dose: 300 mg Guaifenesin (Robitussin) 200 mg PO Q4H PRN PRN Reason: Cough and congestion Last Admin: 12/24/16 09:34 Dose: 200 mg Levofloxacin/Dextrose (Levaquin 750mg) 750 mg in 150 mls @ 100 mls/hr IVPB DAILY [facility] Levalbuterol HCl (Xopenex) 0.63 mg IH [id number] [facility] Last Admin: 12/27/16 01:31 Dose: 0.63 mg Levalbuterol HCl (Xopenex) 0.63 mg IH Q2 PRN PRN Reason: Shortness of Breath Last Admin: 12/27/16 06:40 Dose: 0.63 mg Levothyroxine Sodium (Synthroid) 175 mcg PO DAILY [facility] Last Admin: 12/26/16 09:29 Dose: 175 mcg Lidocaine (Lidoderm) 1 ea TD DAILY [facility] Last Admin: 12/26/16 09:30 Dose: 1 ea Lisinopril (Zestril) 2.5 mg PO DAILY [facility] Mirtazapine (Remeron) 15 mg PO HS [facility] Last Admin: 12/26/16 22:34 Dose: 15 mg Montelukast Sodium (Singulair) 10 mg PO HS [facility] Last Admin: 12/26/16 22:34 Dose: 10 mg Morphine Sulfate (Morphine) 1 mg IVP Q6 PRN PRN Reason: Pain, severe (8-10) Last Admin: 12/27/16 08:35 Dose: 1 mg Multivitamins (Thera Tab) 1 tab PO DAILY [facility] Last Admin: 12/26/16 09:25 Dose: 1 tab Non-Formulary Medication (Guaifenesin [Mucus Relief]) 1 tab PO DAILY [facility] Last Admin: 12/26/16 13:06 Dose: Not Given Non-Formulary Medication (Multivit-Min/Fa/Lycopen/Lutein [Centrum Silver Tablet] ) 1 tab PO DAILY [facility] Last Admin: 12/26/16 13:07 Dose: Not Given Non-Formulary Medication ([place]-3 Fatty Acids/Fish Oil [[place] 3 Fish Oil Softgel ]) 300 mg PO DAILY [facility] Last Admin: 12/26/16 13:07 Dose: Not Given Oxycodone/Acetaminophen (Percocet 5/325 Mg Tab) 2 tab PO Q4H PRN PRN Reason: Pain, moderate (4-7) Stop: 12/29/16 13:01 Pantoprazole Sodium (Protonix Ec Tab) 40 mg PO 0600 [facility] Last Admin: 12/27/16 07:49 Dose: Not Given Polyethylene Glycol (Miralax) 17 gm PO BID [facility] Prasugrel (Effient) 10 mg PO DAILY [facility] Last Admin: 12/26/16 09:25 Dose: 10 mg Tiotropium [place] (Spiriva) 18 mcg IH DAILY [facility] Last Admin: 12/26/16 09:29 Dose: 18 mcg Venlafaxine HCl (Effexor) 75 mg PO DAILY [facility] Last Admin: 12/26/16 09:25 Dose: 75 mg - Labs Labs: 12/27/16 06:40 12/27/16 06:40 PT 15.1 SECONDS (9.4-12.5) H 12/24/16 06:40 INR 1.36 (0.93-1.08) H 12/24/16 06:40 APTT 29.1 Seconds (25.1-36.5) 12/24/16 06:40 Attending/Attestation - Attestation I have personally seen and examined this patient.: Yes I have fully participated in the care of the patient.: Yes I have reviewed all pertinent clinical information, including history, physical exam and plan: Yes Notes (Text): 12/27/16 10:11 76 year old male with h/o MS, CAD s/p stents, COPD, HTN, HLD admitted after fall c/b rib fractures. 1. Chronic constipation 2. Elevated LFTs Plan: -patient has long history of constipation, likely related to underlying MS and exacerbated by opiates -would recommend bowel regimen with miralax and dulcolax suppositories -he has had an aggressive regimen with miralax and relistor and dulcolax without much output, but I don't feel likely we need to be overly aggressive with forcing him to have a BM -would try suppositories today and see how that goes and otherwise treat him supportively -would recommend an US abdomen to eval elevated lfts -he has had an outpatient eval for abnormal lfts 1 month ago which showed the above documented results, which are essentially unremarkable -it may be related to a medication he is receiving since being hospitalized -monitor daily lfts
[2016-12-27] MEDS ORDERED: levoFLOXacin 750 MG TAB PO SCH ×2 (10:00)
[2016-12-27] MEDS: Enoxaparin 30 mg Syringe SC SCH (10:42)
[2016-12-27] MEDS: Bacitracin Ointment 30 GM TUBE TOP SCH (10:42)
[2016-12-27] MEDS: Multivitamin Therapeutic Tab PO SCH (10:48)
[2016-12-27] MEDS: Levothyroxine 175 MCG TAB PO SCH (10:49)
[2016-12-27] MEDS: Aspirin 325 mg EC Tablets PO SCH (10:49)
[2016-12-27] MEDS: Tiotropium 18 mcg Cap For Inhalation IH SCH (10:50)
[2016-12-27] MEDS: Lidocaine 5% Patch TD SCH (10:50)
[2016-12-27] MEDS: levoFLOXacin 750 mg in D5W 750 MG/150 ML BAG IVPB SCH (11:00)
[2016-12-27] MEDS: POLYETHYLENE GLYCOL 3350 17 GM/Dose PACKET PO SCH ×2 (11:00→17:55)
--- NOTE | 2016-12-27 15:58 | US ---
HISTORY: transaminemia COMPARISON: None. TECHNIQUE: Sonographic evaluation of the abdomen. FINDINGS: LIVER: Measures 17.1 cm. There is diffuse increased echogenicity of the liver parenchyma. No mass. No intrahepatic bile duct dilatation. GALLBLADDER: There are multiple gallstones no wall thickening or pericholecystic fluid. The sonographic Arrieta's sign COMMON BILE DUCT: Measures 5.1 mm. No stones. No dilatation. PANCREAS: Obscured by bowel gas. RIGHT KIDNEY: Measures 10.8cm. Normal echogenicity. No calculus, mass, or hydronephrosis. LEFT KIDNEY: Measures 11.8cm. Normal echogenicity. No calculus, mass, or hydronephrosis. SPLEEN: Normal in size and contour. No mass. AORTA: Obscured by bowel gas. IVC: Obscured by bowel gas. OTHER FINDINGS: None. IMPRESSION: Mild hepatomegaly. Diffuse increased echogenicity in the liver may reflect hepatic steatosis however parenchymal infectious/ inflammatory etiologies cannot be entirely excluded. Clinical and laboratory correlation is advised. . Cholelithiasis. No sonographic evidence for acute cholecystitis.
--- NOTE | 2016-12-27 16:03 | CP.PCM.PN ---
<Iker Morrow - Last Filed: 12/27/16 17:53> Subjective - Date & Time of Evaluation Date of Evaluation: 12/27/16 Time of Evaluation: 09:58 - Subjective Subjective: patient was seen and examined at bedside. per nurses, pt was lethargic and hard to arouse, however, pt awoke to verbal stimuli when examined by me. He states that he did not sleep well and has not been feeling well in general. Patient was seen by Dr. Riggins who ordered ABG, and recommended nebulizer treatment with suction, and to change dilaudid to morphine, increase NC to 5L, and started aspiration precautions for patient. When seen during rounds, pt states that he had small BM's but is still in pain. The condition was all explained to the patient and questions answered. Objective - Vital Signs/Intake and Output Vital Signs (last 24 hours): Temp Pulse Resp BP Pulse Ox 97.8 F 110 H 22 143/93 H 92 L 12/27/16 07:30 12/27/16 07:30 12/27/16 07:30 12/27/16 08:27 12/27/16 07:30 Intake and Output: 12/27/16 12/27/16 06:59 18:59 Intake Total 4400 360 Output Total 1700 Balance 2700 360 - Medications Medications: Current Medications Acetylcysteine (Acetylcysteine 20%) 4 ml IH [id number] [facility] Last Admin: 12/27/16 13:15 Dose: 4 ml Ascorbic Acid (Vitamin C 500 Mg Tab) 1,000 mg PO QAM [facility] Last Admin: 12/27/16 10:48 Dose: 1,000 mg Aspirin (Ecotrin) 325 mg PO DAILY [facility] Last Admin: 12/27/16 10:49 Dose: 325 mg Atorvastatin Calcium (Lipitor) 40 mg PO DIN [facility] Last Admin: 12/26/16 19:42 Dose: 40 mg Bacitracin (Bacitracin) 0 gm TOP DAILY [facility] Last Admin: 12/27/16 10:42 Dose: 1 applic Bisacodyl (Dulcolax) 10 mg RC BID PRN PRN Reason: constipation Budesonide (Pulmicort Respules) 0.5 mg IH [id number] [facility] Last Admin: 12/27/16 13:14 Dose: Not Given Bupropion HCl (Wellbutrin) 100 mg PO DAILY [facility] Last Admin: 12/27/16 10:49 Dose: 100 mg Cholecalciferol (Vitamin D) 1,000 iu PO DAILY [facility] Last Admin: 12/27/16 10:49 Dose: 1,000 iu Cyclobenzaprine HCl (Flexeril) 5 mg PO TID [facility] Last Admin: 12/26/16 19:42 Dose: 5 mg Enoxaparin Sodium (Lovenox) 30 mg SC DAILY [facility] PRN Reason: Protocol Last Admin: 12/27/16 10:42 Dose: 30 mg Gabapentin (Neurontin) 300 mg PO TID [facility] PRN Reason: Protocol Last Admin: 12/27/16 10:49 Dose: 300 mg Guaifenesin (Robitussin) 200 mg PO Q4H PRN PRN Reason: Cough and congestion Last Admin: 12/24/16 09:34 Dose: 200 mg Levofloxacin/Dextrose (Levaquin 750mg) 750 mg in 150 mls @ 100 mls/hr IVPB DAILY [facility] Last Admin: 12/27/16 11:00 Dose: 100 mls/hr Levalbuterol HCl (Xopenex) 0.63 mg IH [id number] [facility] Last Admin: 12/27/16 13:14 Dose: Not Given Levalbuterol HCl (Xopenex) 0.63 mg IH Q2 PRN PRN Reason: Shortness of Breath Last Admin: 12/27/16 06:40 Dose: 0.63 mg Levothyroxine Sodium (Synthroid) 175 mcg PO DAILY [facility] Last Admin: 12/27/16 10:49 Dose: 175 mcg Lidocaine (Lidoderm) 1 ea TD DAILY [facility] Last Admin: 12/26/16 09:30 Dose: 1 ea Lisinopril (Zestril) 2.5 mg PO DAILY [facility] Last Admin: 12/27/16 10:49 Dose: 2.5 mg Mirtazapine (Remeron) 15 mg PO HS [facility] Last Admin: 12/26/16 22:34 Dose: 15 mg Montelukast Sodium (Singulair) 10 mg PO HS [facility] Last Admin: 12/26/16 22:34 Dose: 10 mg Morphine Sulfate (Morphine) 1 mg IVP Q6 PRN PRN Reason: Pain, severe (8-10) Last Admin: 12/27/16 08:35 Dose: 1 mg Multivitamins (Thera Tab) 1 tab PO DAILY [facility] Last Admin: 12/27/16 10:48 Dose: 1 tab Non-Formulary Medication (Guaifenesin [Mucus Relief]) 1 tab PO DAILY [facility] Last Admin: 12/26/16 13:06 Dose: Not Given Non-Formulary Medication (Multivit-Min/Fa/Lycopen/Lutein [Centrum Silver Tablet] ) 1 tab PO DAILY [facility] Last Admin: 12/26/16 13:07 Dose: Not Given Non-Formulary Medication ([place]-3 Fatty Acids/Fish Oil [[place] 3 Fish Oil Softgel ]) 300 mg PO DAILY [facility] Last Admin: 12/26/16 13:07 Dose: Not Given Oxycodone/Acetaminophen (Percocet 5/325 Mg Tab) 2 tab PO Q4H PRN PRN Reason: Pain, moderate (4-7) Stop: 12/29/16 13:01 Last Admin: 12/27/16 10:25 Dose: 2 tab Pantoprazole Sodium (Protonix Ec Tab) 40 mg PO 0600 [facility] Last Admin: 12/27/16 07:49 Dose: Not Given Polyethylene Glycol (Miralax) 17 gm PO BID [facility] Last Admin: 12/27/16 11:00 Dose: 17 gm Prasugrel (Effient) 10 mg PO DAILY [facility] Last Admin: 12/27/16 10:49 Dose: 10 mg Tiotropium [place] (Spiriva) 18 mcg IH DAILY [facility] Last Admin: 12/27/16 10:50 Dose: 18 mcg Venlafaxine HCl (Effexor) 75 mg PO DAILY [facility] Last Admin: 12/27/16 10:48 Dose: 75 mg - Labs Labs: 12/27/16 06:40 12/27/16 06:40 PT 15.1 SECONDS (9.4-12.5) H 12/24/16 06:40 INR 1.36 (0.93-1.08) H 12/24/16 06:40 APTT 29.1 Seconds (25.1-36.5) 12/24/16 06:40 - Additional Findings Additional findings: - Constitutional Appears: Non-toxic. absent: acute distress - Head Exam Head Exam: ATRAUMATIC, NORMAL INSPECTION, NORMOCEPHALIC - Eye Exam Eye Exam: EOMI, Normal appearance, PERRL. absent: Conjunctival injection, Scleral icterus - ENT Exam ENT Exam: Mucous Membranes Moist - Neck Exam Neck Exam: Normal Inspection - Respiratory Exam Respiratory Exam: Chest Wall Tenderness (left side), Rhonchi, Wheezes, NORMAL BREATHING PATTERN. absent: Accessory Muscle Use, Respiratory Distress - Cardiovascular Exam Cardiovascular Exam: REGULAR RHYTHM, RRR, +S1, +S2. absent: Murmur - GI/Abdominal Exam GI & Abdominal Exam: Distended, Soft, Normal Bowel Sounds. absent: Firm, Guarding, Rigid - Extremities Exam Extremities Exam: Normal Capillary Refill - Neurological Exam Neurological Exam: Alert, Awake, Oriented x3 - Psychiatric Exam Psychiatric exam: Normal Affect, Normal Mood - Skin Skin Exam: Dry, Intact Additional comments: ecchymoses of different stages of healing throughout body, consistent with mechanical fall Assessment and Plan - Assessment and Plan (Free Text) Assessment: 76 yo male PMHx of MS (chronic R-sided muscle weakness), ME s/p 2 stents, hypothyroidism, chronic constipation on daily Miralax, hydrocele, COPD, HTN, HLD , s/p ME w/SAGAR x 2, and hearing loss bilaterally admitted for constipation and close monitoring and management of multiple rib fracture 2/2 traumatic mechanical fall Plan: 1. Traumatic mechanical fall caused by unsteady gait resulting in intractable chest pain 2/2 rib fractures (L 7-9) - Incentive spirometer encouraged to prevent worsening atelectasis, avoid predisposing to pneumonia - Pain mgmt with Percocet PRN and Morphine PRN, Neurontin 300mg TID, Flexeril - Surgery consulted - Pulm consulted - PT rene dawson after discharge 2. Chronic constipation likely 2/2 Hx MS and home pain meds - pt states he had 2 small BM - Dulcolax, Miralax - cont Remeron, Effexor, Wellbutrin 3. COPD - cont Spiriva, Singulair, Xopenex [facility] And PRN, Pulmicort - cont Levaquin - Supplemental O2 as needed to maintain SaO2 > 88% - Pulm consulted 4. Hypothyroid - continue home synthroid - TSH, Free T4, Total T3 wnl 5. HTN - continue home lisinopril at 2.5mg PO daily 6. HLD - Lipitor 40mg PO daily, heart-healthy soft diet 7. Hx ME s/p 2 stents - continue home ASA and Effient PTX/Lovenox 30mg SC daily Dispo: d/c tomorrow 10 AM to [facility] in [place]. After discharge, pt should follow up with PMD and work to cut down meds due to polypharmacy and conflicting side effects. Patient was seen, examined and discussed with attending, Dr. Naldo Morrow PGY1 <Kacie Hitchcock - Last Filed: 12/28/16 14:20> Objective - Vital Signs/Intake and Output Vital Signs (last 24 hours): Temp Pulse Resp BP Pulse Ox 98.6 F 77 22 120/72 92 L 12/28/16 07:30 12/28/16 09:56 12/28/16 07:30 12/28/16 09:56 12/28/16 07:30 Intake and Output: 12/28/16 12/28/16 06:59 18:59 Intake Total 720 Output Total 0 Balance 720 - Labs Labs: 12/27/16 06:40 12/28/16 07:00 PT 15.1 SECONDS (9.4-12.5) H 12/24/16 06:40 INR 1.36 (0.93-1.08) H 12/24/16 06:40 APTT 29.1 Seconds (25.1-36.5) 12/24/16 06:40 Attending/Attestation - Attestation I have personally seen and examined this patient.: Yes I have fully participated in the care of the patient.: Yes I have reviewed all pertinent clinical information, including history, physical exam and plan: Yes Notes (Text): 12/28/16 14:19 Attending note; Patient seen and examined with resident. Patient is a 76 year old male with history of MS with chronic right sided muscle weakness, ME s/p cardiac stent, hypothyroidism, chronic constipation on daily Miralax, COPD, former smoker, HTN, HLD, and hearing loss bilaterally who [place] [facility] [place] and developed multiple rib fractures on the left side. Chest binder in place. Will continue IV analgesics. Surgery consult appreciated. The patient was lethargic this morning. Possibly secondary to opiates use. Opiate dosage decreased. Repeat chest x-ray showed right middle lobe consolidation. ABG showed no significant acidosis. 1 dose of IV Lasix given. COPD; pulmonary evaluation appreciated. Continue oxygen and xopenex treatment when necessary. Constipation; continue MiraLAX and Colace. GI evaluation appreciated. Abdominal ultrasound ordered. Abdominal x-ray is negative for ileus or obstruction. Continue incentive spirometer. Chest PT/aggressive suctioning ordered. Possible [facility] placement. Will discuss with licensed social worker/case preparer and liner for discharge planning. Upon discharge patient will follow up with .
--- NOTE | 2016-12-27 17:10 | CP.PCM.PN ---
Subjective - Date & Time of Evaluation Date of Evaluation: 12/27/16 Time of Evaluation: 17:08 - Subjective Subjective: General Surgery Progress Note for Dr. Choi Pt seen and examined this Am at bedside. Pt was lethargic [id number] GCS9 abg was done showed PO2 65, CXR showed vascualr congestion and worsening pneumonia. Patient examined again in the afternoon showed improvement. Objective - Vital Signs/Intake and Output Vital Signs (last 24 hours): Temp Pulse Resp BP Pulse Ox 97.8 F 110 H 22 143/93 H 92 L 12/27/16 07:30 12/27/16 07:30 12/27/16 07:30 12/27/16 08:27 12/27/16 07:30 Intake and Output: 12/27/16 12/27/16 06:59 18:59 Intake Total 4400 360 Output Total 1700 Balance 2700 360 - Medications Medications: Current Medications Acetylcysteine (Acetylcysteine 20%) 4 ml IH [id number] [facility] Last Admin: 12/27/16 13:15 Dose: 4 ml Ascorbic Acid (Vitamin C 500 Mg Tab) 1,000 mg PO QAM [facility] Last Admin: 12/27/16 10:48 Dose: 1,000 mg Aspirin (Ecotrin) 325 mg PO DAILY [facility] Last Admin: 12/27/16 10:49 Dose: 325 mg Atorvastatin Calcium (Lipitor) 40 mg PO DIN [facility] Last Admin: 12/26/16 19:42 Dose: 40 mg Bacitracin (Bacitracin) 0 gm TOP DAILY [facility] Last Admin: 12/27/16 10:42 Dose: 1 applic Bisacodyl (Dulcolax) 10 mg RC BID PRN PRN Reason: constipation Budesonide (Pulmicort Respules) 0.5 mg IH [id number] [facility] Last Admin: 12/27/16 13:14 Dose: Not Given Bupropion HCl (Wellbutrin) 100 mg PO DAILY [facility] Last Admin: 12/27/16 10:49 Dose: 100 mg Cholecalciferol (Vitamin D) 1,000 iu PO DAILY [facility] Last Admin: 12/27/16 10:49 Dose: 1,000 iu Cyclobenzaprine HCl (Flexeril) 5 mg PO TID [facility] Last Admin: 12/26/16 19:42 Dose: 5 mg Enoxaparin Sodium (Lovenox) 30 mg SC DAILY [facility] PRN Reason: Protocol Last Admin: 12/27/16 10:42 Dose: 30 mg Gabapentin (Neurontin) 300 mg PO TID [facility] PRN Reason: Protocol Last Admin: 12/27/16 10:49 Dose: 300 mg Guaifenesin (Robitussin) 200 mg PO Q4H PRN PRN Reason: Cough and congestion Last Admin: 12/24/16 09:34 Dose: 200 mg Levofloxacin/Dextrose (Levaquin 750mg) 750 mg in 150 mls @ 100 mls/hr IVPB DAILY [facility] Last Admin: 12/27/16 11:00 Dose: 100 mls/hr Levalbuterol HCl (Xopenex) 0.63 mg IH [id number] [facility] Last Admin: 12/27/16 13:14 Dose: Not Given Levalbuterol HCl (Xopenex) 0.63 mg IH Q2 PRN PRN Reason: Shortness of Breath Last Admin: 12/27/16 06:40 Dose: 0.63 mg Levothyroxine Sodium (Synthroid) 175 mcg PO DAILY [facility] Last Admin: 12/27/16 10:49 Dose: 175 mcg Lidocaine (Lidoderm) 1 ea TD DAILY [facility] Last Admin: 12/26/16 09:30 Dose: 1 ea Lisinopril (Zestril) 2.5 mg PO DAILY [facility] Last Admin: 12/27/16 10:49 Dose: 2.5 mg Mirtazapine (Remeron) 15 mg PO HS [facility] Last Admin: 12/26/16 22:34 Dose: 15 mg Montelukast Sodium (Singulair) 10 mg PO HS [facility] Last Admin: 12/26/16 22:34 Dose: 10 mg Morphine Sulfate (Morphine) 1 mg IVP Q6 PRN PRN Reason: Pain, severe (8-10) Last Admin: 12/27/16 08:35 Dose: 1 mg Multivitamins (Thera Tab) 1 tab PO DAILY [facility] Last Admin: 12/27/16 10:48 Dose: 1 tab Non-Formulary Medication (Guaifenesin [Mucus Relief]) 1 tab PO DAILY [facility] Last Admin: 12/26/16 13:06 Dose: Not Given Non-Formulary Medication (Multivit-Min/Fa/Lycopen/Lutein [Centrum Silver Tablet] ) 1 tab PO DAILY [facility] Last Admin: 12/26/16 13:07 Dose: Not Given Non-Formulary Medication ([place]-3 Fatty Acids/Fish Oil [[place] 3 Fish Oil Softgel ]) 300 mg PO DAILY [facility] Last Admin: 12/26/16 13:07 Dose: Not Given Oxycodone/Acetaminophen (Percocet 5/325 Mg Tab) 2 tab PO Q4H PRN PRN Reason: Pain, moderate (4-7) Stop: 12/29/16 13:01 Last Admin: 12/27/16 10:25 Dose: 2 tab Pantoprazole Sodium (Protonix Ec Tab) 40 mg PO 0600 [facility] Last Admin: 12/27/16 07:49 Dose: Not Given Polyethylene Glycol (Miralax) 17 gm PO BID [facility] Last Admin: 12/27/16 11:00 Dose: 17 gm Prasugrel (Effient) 10 mg PO DAILY [facility] Last Admin: 12/27/16 10:49 Dose: 10 mg Tiotropium Blue (Spiriva) 18 mcg IH DAILY [facility] Last Admin: 12/27/16 10:50 Dose: 18 mcg Venlafaxine HCl (Effexor) 75 mg PO DAILY [facility] Last Admin: 12/27/16 10:48 Dose: 75 mg - Labs Labs: 12/27/16 06:40 12/27/16 06:40 PT 15.1 SECONDS (9.4-12.5) H 12/24/16 06:40 INR 1.36 (0.93-1.08) H 12/24/16 06:40 APTT 29.1 Seconds (25.1-36.5) 12/24/16 06:40 - Constitutional Appears: Non-toxic, Other (in obvious pain with deep inspiration) - Head Exam Head Exam: NORMOCEPHALIC - Eye Exam Eye Exam: EOMI, Normal appearance. absent: Scleral icterus - ENT Exam ENT Exam: Mucous Membranes Moist - Neck Exam Neck Exam: absent: Lymphadenopathy - Respiratory Exam Respiratory Exam: Chest Wall Tenderness (left side), Rhonchi, NORMAL BREATHING PATTERN. absent: Accessory Muscle Use, Wheezes, Respiratory Distress - Cardiovascular Exam Cardiovascular Exam: REGULAR RHYTHM - GI/Abdominal Exam GI & Abdominal Exam: Soft. absent: Distended, Firm, Guarding, Rigid, Tenderness - Extremities Exam Extremities Exam: Normal Capillary Refill. absent: Calf Tenderness, Tenderness - Neurological Exam Neurological Exam: Alert, Awake, Oriented x3 - Psychiatric Exam Psychiatric exam: Normal Affect, Normal Mood Assessment and Plan - Assessment and Plan (Free Text) Assessment: This is a 76M with Left rib fracture 7-9 Continue with pain control Recommend DVT prophalaxis continue medical management per primary team Discuss with Dr. Jimbo Florian PGY2
[2016-12-27] MEDS: GUAIFENESIN PO SCH (17:54)
[2016-12-27] MEDS: Non Formulary Medication (Multivit-Min/Fa/Lycopen/Lutein [Centrum Silver Tablet] 1 TAB) PO SCH (17:55)
[2016-12-27] MEDS: FATTY ACIDS PO SCH (17:56)
[2016-12-27] MEDS: [UNRECOGNIZED DRUG - OTHER] PO SCH (17:56)
[2016-12-27] MEDS: OMEGA PO SCH (17:56)
[2016-12-27] MEDS: FISH OIL PO SCH (17:56)
[2016-12-27] MEDS: oxyCODONE 10 mg Immediate Release Tab PO PRN (22:09)
[2016-12-28] MEDS: oxyCODONE 10 mg Immediate Release Tab PO PRN ×3 (02:00→09:58)
[2016-12-28] MEDS: Levalbuterol 0.63 MG/3 ML Inhal Soln UD IH SCH ×3 (02:02→07:20)
[2016-12-28] MEDS: Acetylcysteine 20% Inhal Soln (4ml) IH SCH ×3 (02:02→07:19)
[2016-12-28] MEDS: Pantoprazole 40 mg EC Tab PO SCH (05:03)
[2016-12-28] MEDS: Budesonide 0.5 mg/2 ml Inhal Susp UD IH SCH (07:19)
--- NOTE | 2016-12-28 07:46 | CP.PCM.PN ---
<Moose Zepeda - Last Filed: 12/28/16 10:02> Subjective - Date & Time of Evaluation Date of Evaluation: 12/28/16 Time of Evaluation: 07:00 - Subjective Subjective: Moose Zepeda DO PGY1 - GI Progress Note for Dr. Barbosa Patient seen and examined at bedside. Patient reportedly had abdominal pain overnight, which resolved with passing flatus. This morning, patient says he feels better after having passed some gas. He reports that twice yesterday, he sat on the commode with the urge to defecate, but only a small amount of fluid came out, as well as flatus. He reports moderate relief in abdominal discomfort after those two movements. He also re-clarified his bowel habits, confirming that in fact, he normally goes 1-3 times weekly, as originally stated, not once every three weeks, as he misspoke yesterday. He currently denies any abdominal pain, nausea, vomiting, fevers, or chills. Objective - Vital Signs/Intake and Output Vital Signs (last 24 hours): Temp Pulse Resp BP Pulse Ox 98 F 107 H 20 129/77 98 12/27/16 16:00 12/27/16 16:00 12/27/16 16:00 12/27/16 16:00 12/27/16 16:00 Intake and Output: 12/28/16 12/28/16 06:59 18:59 Intake Total 720 Output Total 0 Balance 720 - Medications Medications: Current Medications Acetylcysteine (Acetylcysteine 20%) 4 ml IH [id number] [facility] Last Admin: 12/28/16 07:19 Dose: 4 ml Ascorbic Acid (Vitamin C 500 Mg Tab) 1,000 mg PO QAM [facility] Last Admin: 12/27/16 10:48 Dose: 1,000 mg Aspirin (Ecotrin) 325 mg PO DAILY [facility] Last Admin: 12/27/16 10:49 Dose: 325 mg Atorvastatin Calcium (Lipitor) 40 mg PO DIN [facility] Last Admin: 12/27/16 17:56 Dose: 40 mg Bacitracin (Bacitracin) 0 gm TOP DAILY [facility] Last Admin: 12/27/16 10:42 Dose: 1 applic Bisacodyl (Dulcolax) 10 mg RC BID PRN PRN Reason: constipation Budesonide (Pulmicort Respules) 0.5 mg IH [id number] [facility] Last Admin: 12/28/16 07:19 Dose: 0.5 mg Bupropion HCl (Wellbutrin) 100 mg PO DAILY [facility] Last Admin: 12/27/16 10:49 Dose: 100 mg Cholecalciferol (Vitamin D) 1,000 iu PO DAILY [facility] Last Admin: 12/27/16 10:49 Dose: 1,000 iu Cyclobenzaprine HCl (Flexeril) 5 mg PO TID [facility] Last Admin: 12/26/16 19:42 Dose: 5 mg Enoxaparin Sodium (Lovenox) 30 mg SC DAILY [facility] PRN Reason: Protocol Last Admin: 12/27/16 10:42 Dose: 30 mg Gabapentin (Neurontin) 300 mg PO TID [facility] PRN Reason: Protocol Last Admin: 12/27/16 17:55 Dose: 300 mg Guaifenesin (Robitussin) 200 mg PO Q4H PRN PRN Reason: Cough and congestion Last Admin: 12/24/16 09:34 Dose: 200 mg Levofloxacin/Dextrose (Levaquin 750mg) 750 mg in 150 mls @ 100 mls/hr IVPB DAILY [facility] Last Admin: 12/27/16 11:00 Dose: 100 mls/hr Levalbuterol HCl (Xopenex) 0.63 mg IH [id number] [facility] Last Admin: 12/28/16 07:20 Dose: 0.63 mg Levalbuterol HCl (Xopenex) 0.63 mg IH Q2 PRN PRN Reason: Shortness of Breath Last Admin: 12/27/16 06:40 Dose: 0.63 mg Levothyroxine Sodium (Synthroid) 175 mcg PO DAILY [facility] Last Admin: 12/27/16 10:49 Dose: 175 mcg Lidocaine (Lidoderm) 1 ea TD DAILY [facility] Last Admin: 12/27/16 10:50 Dose: 1 ea Lisinopril (Zestril) 2.5 mg PO DAILY [facility] Last Admin: 12/27/16 10:49 Dose: 2.5 mg Mirtazapine (Remeron) 15 mg PO HS [facility] Last Admin: 12/27/16 21:16 Dose: 15 mg Montelukast Sodium (Singulair) 10 mg PO HS [facility] Last Admin: 12/27/16 21:16 Dose: 10 mg Morphine Sulfate (Morphine) 1 mg IVP Q6 PRN PRN Reason: Pain, severe (8-10) Last Admin: 12/27/16 23:37 Dose: 1 mg Multivitamins (Thera Tab) 1 tab PO DAILY [facility] Last Admin: 12/27/16 10:48 Dose: 1 tab Non-Formulary Medication (Guaifenesin [Mucus Relief]) 1 tab PO DAILY [facility] Last Admin: 12/27/16 17:54 Dose: Not Given Non-Formulary Medication (Multivit-Min/Fa/Lycopen/Lutein [Centrum Silver Tablet] ) 1 tab PO DAILY [facility] Last Admin: 12/27/16 17:55 Dose: Not Given Non-Formulary Medication ([place]-3 Fatty Acids/Fish Oil [[place] 3 Fish Oil Softgel ]) 300 mg PO DAILY [facility] Last Admin: 12/27/16 17:56 Dose: Not Given Oxycodone HCl (Oxycodone Immediate Release Tab) 10 mg PO Q4H PRN PRN Reason: Pain, moderate (4-7) Last Admin: 12/28/16 05:49 Dose: 10 mg Pantoprazole Sodium (Protonix Ec Tab) 40 mg PO 0600 [facility] Last Admin: 12/28/16 05:03 Dose: 40 mg Polyethylene Glycol (Miralax) 17 gm PO BID [facility] Last Admin: 12/27/16 17:55 Dose: 17 gm Prasugrel (Effient) 10 mg PO DAILY [facility] Last Admin: 12/27/16 10:49 Dose: 10 mg Tiotropium [place] (Spiriva) 18 mcg IH DAILY [facility] Last Admin: 12/27/16 10:50 Dose: 18 mcg Venlafaxine HCl (Effexor) 75 mg PO DAILY [facility] Last Admin: 12/27/16 10:48 Dose: 75 mg - Labs Labs: 12/27/16 06:40 12/27/16 06:40 PT 15.1 SECONDS (9.4-12.5) H 12/24/16 06:40 INR 1.36 (0.93-1.08) H 12/24/16 06:40 APTT 29.1 Seconds (25.1-36.5) 12/24/16 06:40 - Constitutional Appears: Non-toxic, No Acute Distress, Chronically Ill - Head Exam Head Exam: ATRAUMATIC, NORMOCEPHALIC - Eye Exam Eye Exam: EOMI, Normal appearance - ENT Exam ENT Exam: Mucous Membranes Moist - Neck Exam Neck Exam: Normal Inspection - Respiratory Exam Respiratory Exam: Chest Wall Tenderness, Rhonchi, NORMAL BREATHING PATTERN - Cardiovascular Exam Cardiovascular Exam: RRR, +S1, +S2 - GI/Abdominal Exam GI & Abdominal Exam: Distended, Soft, Normal Bowel Sounds. absent: Firm, Guarding, Rigid, Tenderness Additional comments: Tympanitic, grossly distended - Rectal Exam Rectal Exam: Deferred - Extremities Exam Extremities Exam: absent: Calf Tenderness, Pedal Edema Additional comments: ecchymoses noted on left arm and left hip - Neurological Exam Neurological Exam: Alert, Awake, Oriented x3 - Psychiatric Exam Psychiatric exam: Normal Affect, Normal Mood - Skin Skin Exam: Dry, Intact Assessment and Plan - Assessment and Plan (Free Text) Assessment: 76 yo M with PMH significant for MS (chronic R-sided muscle weakness), [place] s/p 2 stents, hypothyroidism, COPD, HTN, HLD, s/p NJ w/SAGAR x 2, and chronic constipation who initially presented for rib pain s/p fall, being actively treated for multiple rib fractures, leukocytosis, and constipation; CT C/A/P significant for rib fractures and large stool in colon, abdomen XR negative for signs of obstruction; transaminemia yesterday >Transaminemia largely unchanged, likely 2/2 polypharmacy vs hepatic steatosis - Abdominal US done yesterday, significant for mild hepatomegaly and diffusely increased echogenicity of the liver; most likely hepatic steatosis, considering prior workup - No acute intervention indicated at this time - Recommend outpatient follow up to trend LFTs >Patient has still not had a BM since admission, but is passing flatus, now with overflow diarrhea - Encouraged patient to use the PRN dulcolax suppositories, which he reports have helped him in the past - Patient should continue to follow bowel regimen after discharge >Continue current bowel regimen Patient seen, discussed, and reviewed with attending <Gunnar Barbosa - Last Filed: 12/28/16 12:51> Objective - Vital Signs/Intake and Output Vital Signs (last 24 hours): Temp Pulse Resp BP Pulse Ox 98.6 F 77 22 120/72 92 L 12/28/16 07:30 12/28/16 09:56 12/28/16 07:30 12/28/16 09:56 12/28/16 07:30 Intake and Output: 12/28/16 12/28/16 06:59 18:59 Intake Total 720 Output Total 0 Balance 720 - Labs Labs: 12/27/16 06:40 12/28/16 07:00 PT 15.1 SECONDS (9.4-12.5) H 12/24/16 06:40 INR 1.36 (0.93-1.08) H 12/24/16 06:40 APTT 29.1 Seconds (25.1-36.5) 12/24/16 06:40 Attending/Attestation - Attestation I have personally seen and examined this patient.: Yes I have fully participated in the care of the patient.: Yes I have reviewed all pertinent clinical information, including history, physical exam and plan: Yes Notes (Text): 12/28/16 12:49 I have seen and examined patient with GI fellow and medical auditor. No acute events overnight, he continues to endorse constipation with mild abdominal discomfort though he was able to have two bowel movements yesterday. He denies nausea, vomiting, fever/chills. Tolerating PO diet without difficulty. Abdominal pain, constipation Transaminitis - outpatient workup including viral hepatitis panel and autoimmune serologies negative - Diet as tolerated - Maintain aggressive bowel regimen in order to prevent recurrent constipation - LFTs stable, continue to monitor. Abdominal US performed revealed hepatic steatosis. - Patient planned for hospital discharge today, suggest additional outpatient follow up with Dr. Sebastian
[2016-12-28 07:51] LABS: ALB/GLOB RATIO 0.9 (1.1-1.8); ALKALINE PHOSPHATASE 222 U/L (38-126); ALT/SGPT 136 U/L (7-56); AST/SGOT 163 U/L (17-59); BLOOD UREA NITROGEN 29 mg/dL (7-21); CALCIUM 9.3 mg/dL (8.4-10.5); CARBON DIOXIDE 26 mmol/L (21-33); CHLORIDE 104 mmol/L (98-107); GFR AFRICAN-AMERICAN > 60; GLUCOSE,RANDOM 118 mg/dL (70-110); POTASSIUM 4.1 mmol/L (3.6-5.0); SODIUM 136 mmol/L (132-148); TOTAL PROTEIN 6.4 g/dL (5.8-8.3)
--- NOTE | 2016-12-28 08:02 | PN ---
PULMONARY PROGRESS NOTE SUBJECTIVE: The patient is much more awake and alert this morning. He is not short of breath at rest. He is fully conversive. PHYSICAL EXAMINATION: VITAL SIGNS: Last temperature recorded is 98.0, pulse this morning 88, respirations 18/20, blood pressure 129/77. Oxygen saturation on nasal cannula is 98%. HEENT: Normocephalic, atraumatic. NECK: No JVD. CARDIOVASCULAR: Positive S1, S2. No S3 gallop. LUNGS: Decreased breath sounds at the bases. Much less rhonchi. No wheezing. EXTREMITIES: No clubbing, cyanosis or edema. Calves are nontender to palpation. GI: Abdomen is soft, nontender and nondistended. Bowel sounds are positive. SKIN: No acute rash. NEUROLOGIC: Limited at the present time. PERTINENT LABORATORY DATA: Chest x-ray was done this morning and reviewed. There was also a chest x-ray done yesterday morning. Yesterday morning's chest x-ray revealed a new right mid lung infiltrate with increasing right basal atelectasis. On today's film, there is almost complete resolution of the right middle lung infiltrate. There is also much less right basal atelectasis. IMPRESSION: 1. Multiple left-sided rib fractures 2. Status post fall at home. 3. Chronic obstructive pulmonary disease. 4. Mild bronchospasm. 5. Bibasilar atelectasis. 6. Multiple sclerosis. PLAN: The patient appears much more awake and alert this morning. He is conversive. He is not short of breath at rest. He does state to feeling much, much better overall. I did review both of the x-rays-- done yesterday and today. Today's film is significantly improved-- with almost complete resolution of the right mid lung infiltrate, as well as a decrease in the right basal atelectasis. I will continue with the current nebulizer treatments and aggressive pulmonary toilet for now. The patient is also reminded to be out of bed, and using his spirometer as much as possible. I have also reviewed the last laboratory data. The leukocytosis continues to resolve. I would continue with the antibiotic coverage for now. Clinical status of the patient is significantly improved-compared to yesterday. I will discuss the above with the attending physician. Amanuel Riggins MD [facility]
[2016-12-28 08:21] VITALS: BP 120/72; RESP 22; TEMP 98.6; O2SAT 92
--- NOTE | 2016-12-28 09:40 | CP.PCM.PN ---
Subjective - Date & Time of Evaluation Date of Evaluation: 12/28/16 Time of Evaluation: 09:36 - Subjective Subjective: General Surgery - Dr. Choi Pt S&E. GIULIA. PT is doing well this morning. He states his breathing is improving, denies any SOB currently. He is working with incentive spirometer and ambulating. No F/C. Objective - Vital Signs/Intake and Output Vital Signs (last 24 hours): Temp Pulse Resp BP Pulse Ox 98.6 F 113 H 22 120/72 92 L 12/28/16 07:30 12/28/16 07:30 12/28/16 07:30 12/28/16 07:30 12/28/16 07:30 Intake and Output: 12/28/16 12/28/16 06:59 18:59 Intake Total 720 Output Total 0 Balance 720 - Medications Medications: Current Medications Acetylcysteine (Acetylcysteine 20%) 4 ml IH [id number] [facility] Last Admin: 12/28/16 07:19 Dose: 4 ml Ascorbic Acid (Vitamin C 500 Mg Tab) 1,000 mg PO QAM [facility] Last Admin: 12/27/16 10:48 Dose: 1,000 mg Aspirin (Ecotrin) 325 mg PO DAILY [facility] Last Admin: 12/27/16 10:49 Dose: 325 mg Atorvastatin Calcium (Lipitor) 40 mg PO DIN [facility] Last Admin: 12/27/16 17:56 Dose: 40 mg Bacitracin (Bacitracin) 0 gm TOP DAILY [facility] Last Admin: 12/27/16 10:42 Dose: 1 applic Bisacodyl (Dulcolax) 10 mg RC BID PRN PRN Reason: constipation Budesonide (Pulmicort Respules) 0.5 mg IH [id number] [facility] Last Admin: 12/28/16 07:19 Dose: 0.5 mg Bupropion HCl (Wellbutrin) 100 mg PO DAILY [facility] Last Admin: 12/27/16 10:49 Dose: 100 mg Cholecalciferol (Vitamin D) 1,000 iu PO DAILY [facility] Last Admin: 12/27/16 10:49 Dose: 1,000 iu Cyclobenzaprine HCl (Flexeril) 5 mg PO TID [facility] Last Admin: 12/26/16 19:42 Dose: 5 mg Enoxaparin Sodium (Lovenox) 30 mg SC DAILY [facility] PRN Reason: Protocol Last Admin: 12/27/16 10:42 Dose: 30 mg Gabapentin (Neurontin) 300 mg PO TID [facility] PRN Reason: Protocol Last Admin: 12/27/16 17:55 Dose: 300 mg Guaifenesin (Robitussin) 200 mg PO Q4H PRN PRN Reason: Cough and congestion Last Admin: 12/24/16 09:34 Dose: 200 mg Levofloxacin/Dextrose (Levaquin 750mg) 750 mg in 150 mls @ 100 mls/hr IVPB DAILY [facility] Last Admin: 12/27/16 11:00 Dose: 100 mls/hr Levalbuterol HCl (Xopenex) 0.63 mg IH [id number] [facility] Last Admin: 12/28/16 07:20 Dose: 0.63 mg Levalbuterol HCl (Xopenex) 0.63 mg IH Q2 PRN PRN Reason: Shortness of Breath Last Admin: 12/27/16 06:40 Dose: 0.63 mg Levothyroxine Sodium (Synthroid) 175 mcg PO DAILY [facility] Last Admin: 12/27/16 10:49 Dose: 175 mcg Lidocaine (Lidoderm) 1 ea TD DAILY [facility] Last Admin: 12/27/16 10:50 Dose: 1 ea Lisinopril (Zestril) 2.5 mg PO DAILY [facility] Last Admin: 12/27/16 10:49 Dose: 2.5 mg Mirtazapine (Remeron) 15 mg PO HS [facility] Last Admin: 12/27/16 21:16 Dose: 15 mg Montelukast Sodium (Singulair) 10 mg PO HS [facility] Last Admin: 12/27/16 21:16 Dose: 10 mg Morphine Sulfate (Morphine) 1 mg IVP Q6 PRN PRN Reason: Pain, severe (8-10) Last Admin: 12/27/16 23:37 Dose: 1 mg Multivitamins (Thera Tab) 1 tab PO DAILY [facility] Last Admin: 12/27/16 10:48 Dose: 1 tab Non-Formulary Medication (Guaifenesin [Mucus Relief]) 1 tab PO DAILY [facility] Last Admin: 12/27/16 17:54 Dose: Not Given Non-Formulary Medication (Multivit-Min/Fa/Lycopen/Lutein [Centrum Silver Tablet] ) 1 tab PO DAILY [facility] Last Admin: 12/27/16 17:55 Dose: Not Given Non-Formulary Medication ([place]-3 Fatty Acids/Fish Oil [[place] 3 Fish Oil Softgel ]) 300 mg PO DAILY [facility] Last Admin: 12/27/16 17:56 Dose: Not Given Oxycodone HCl (Oxycodone Immediate Release Tab) 10 mg PO Q4H PRN PRN Reason: Pain, moderate (4-7) Last Admin: 12/28/16 05:49 Dose: 10 mg Pantoprazole Sodium (Protonix Ec Tab) 40 mg PO 0600 [facility] Last Admin: 12/28/16 05:03 Dose: 40 mg Polyethylene Glycol (Miralax) 17 gm PO BID [facility] Last Admin: 12/27/16 17:55 Dose: 17 gm Prasugrel (Effient) 10 mg PO DAILY [facility] Last Admin: 12/27/16 10:49 Dose: 10 mg Tiotropium [place] (Spiriva) 18 mcg IH DAILY [facility] Last Admin: 12/27/16 10:50 Dose: 18 mcg Venlafaxine HCl (Effexor) 75 mg PO DAILY [facility] Last Admin: 12/27/16 10:48 Dose: 75 mg - Labs Labs: 12/27/16 06:40 12/28/16 07:00 PT 15.1 SECONDS (9.4-12.5) H 12/24/16 06:40 INR 1.36 (0.93-1.08) H 12/24/16 06:40 APTT 29.1 Seconds (25.1-36.5) 12/24/16 06:40 - Constitutional Appears: No Acute Distress - Head Exam Head Exam: ATRAUMATIC, NORMAL INSPECTION, NORMOCEPHALIC - Respiratory Exam Respiratory Exam: NORMAL BREATHING PATTERN. absent: Respiratory Distress - Neurological Exam Neurological Exam: Alert, Oriented x3 - Psychiatric Exam Psychiatric exam: Normal Affect, Normal Mood - Skin Skin Exam: Dry, Intact Assessment and Plan - Assessment and Plan (Free Text) Assessment: 76M w/ Left rib fractures 7-9 with pneumonia -Continue pain control and wean to PO meds -CXR improved today -Encourage OOB and Incentive spirometer DW DR Jimbo Boyle PGY3
[2016-12-28] MEDS: levoFLOXacin 750 mg in D5W 750 MG/150 ML BAG IVPB SCH (09:45)
[2016-12-28] MEDS: Lidocaine 5% Patch TD SCH (09:53)
[2016-12-28] MEDS: Enoxaparin 30 mg Syringe SC SCH (09:55)
[2016-12-28] MEDS: Multivitamin Therapeutic Tab PO SCH (09:57)
[2016-12-28] MEDS: Levothyroxine 175 MCG TAB PO SCH (09:57)
[2016-12-28] MEDS: Aspirin 325 mg EC Tablets PO SCH (09:57)
[2016-12-28 10:00] VITALS: PULSE 77
[2016-12-28] MEDS: GUAIFENESIN PO SCH (10:10)
--- NOTE | 2016-12-28 11:02 | RAD ---
HISTORY: follow up COMPARISON: 12/27/2016 FINDINGS: LUNGS: There is improvement in the right-sided infiltrate seen previously. PLEURA: No significant pleural effusion identified, no pneumothorax apparent. CARDIOVASCULAR: Normal. OSSEOUS STRUCTURES: No significant abnormalities. VISUALIZED UPPER ABDOMEN: Normal. OTHER FINDINGS: None. IMPRESSION: Improvement in right-sided infiltrates
--- NOTE | 2016-12-28 13:31 | CP.PCM.DIS ---
<Briseida Anderson - Last Filed: 12/28/16 13:19> Provider - Provider Date of Admission: 12/23/16 12:00 Attending physician: Kacie Hitchcock MD Primary care physician: Isreal Choi MD Consults: Pain management: Dr. Vargas Anesthesia: Dr. Pearce GI: Dr. Cuellar/Romulo Surgery: Dr. Choi Pulmonology: Dr. Castaneda Time Spent in preparation of Discharge (in minutes): 45 Hospital Course - Lab Results Lab Results: Most Recent Lab Values WBC 14.1 10^3/ul (4.5-11.0) H 12/27/16 06:40 RBC 3.33 10^6/uL (3.5-6.1) L 12/27/16 06:40 Hgb 9.5 g/dL (14.0-18.0) L 12/27/16 06:40 Hct 29.7 % (42.0-52.0) L 12/27/16 06:40 MCV 89.2 fl (80.0-105.0) 12/27/16 06:40 MCH 28.5 pg (25.0-35.0) 12/27/16 06:40 MCHC 32.0 g/dl (31.0-37.0) 12/27/16 06:40 RDW 15.4 % (11.5-14.5) H 12/27/16 06:40 Plt Count 218 10^3/uL (120.0-450.0) 12/27/16 06:40 MPV 8.8 fl (7.0-11.0) 12/27/16 06:40 Gran % 71.3 % (50.0-68.0) H 12/27/16 06:40 Lymph % (Auto) 17.7 % (22.0-35.0) L 12/27/16 06:40 Taylor % (Auto) 9.4 % (1.0-6.0) H 12/27/16 06:40 Eos % (Auto) 1.4 % (1.5-5.0) L 12/27/16 06:40 Baso % (Auto) 0.2 % (0.0-3.0) 12/27/16 06:40 Gran # 10.06 (1.4-6.5) H 12/27/16 06:40 Lymph # 2.5 (1.2-3.4) 12/27/16 06:40 Taylor # 1.3 (0.1-0.6) H 12/27/16 06:40 Eos # 0.2 (0.0-0.7) 12/27/16 06:40 Baso # 0.03 K/mm3 (0.0-2.0) 12/27/16 06:40 PT 15.1 SECONDS (9.4-12.5) H 12/24/16 06:40 INR 1.36 (0.93-1.08) H 12/24/16 06:40 APTT 29.1 Seconds (25.1-36.5) 12/24/16 06:40 pCO2 34 mm/Hg (35-45) L 12/27/16 06:45 pO2 65.0 mm/Hg (80-100) L 12/27/16 06:45 HCO3 20.6 mmol/L (21-28) L 12/27/16 06:45 ABG pH 7.39 (7.35-7.45) 12/27/16 06:45 ABG Total CO2 21.6 mmol.L (22-28) L 12/27/16 06:45 ABG O2 Saturation 97.1 % (95-98) 12/27/16 06:45 ABG Base Excess -3.6 mmol/L (-2.0-3.0) L 12/27/16 06:45 ABG Potassium 4.1 mmol/L (3.6-5.2) 12/27/16 06:45 Sodium 137.0 mmol/L (132-148) 12/27/16 06:45 Chloride 112.0 mmol/L (98-107) H 12/27/16 06:45 Glucose 95 mg/dl (75-110) 12/27/16 06:45 Lactate 0.7 mmol/L (0.7-2.1) 12/27/16 06:45 FiO2 32.0 % 12/27/16 06:45 Sodium 136 mmol/L (132-148) 12/28/16 07:00 Potassium 4.1 mmol/L (3.6-5.0) 12/28/16 07:00 Chloride 104 mmol/L (98-107) 12/28/16 07:00 Carbon Dioxide 26 mmol/L (21-33) 12/28/16 07:00 Anion Gap 11 (10-20) 12/28/16 07:00 BUN 29 mg/dL (7-21) H 12/28/16 07:00 Creatinine 1.2 mg/dl (0.8-1.5) 12/28/16 07:00 Est GFR ( Amer) > 60 12/28/16 07:00 Est GFR (Non-Af Amer) 59 12/28/16 07:00 POC Glucose (mg/dL) 100 mg/dL (65-110) 12/27/16 07:02 Random Glucose 118 mg/dL (70-110) H 12/28/16 07:00 Calcium 9.3 mg/dL (8.4-10.5) 12/28/16 07:00 Phosphorus 3.6 mg/dL (2.5-4.5) 12/26/16 09:40 Magnesium 2.4 mg/dL (1.7-2.2) H 12/26/16 09:40 Total Bilirubin 1.0 mg/dL (0.2-1.3) 12/28/16 07:00 Direct Bilirubin 0.7 mg/dL (0.0-0.4) H 12/23/16 09:27 AST 163 U/L (17-59) H 12/28/16 07:00 ALT 136 U/L (7-56) H 12/28/16 07:00 Alkaline Phosphatase 222 U/L (38-126) H 12/28/16 07:00 Lactate Dehydrogenase 560 U/L (333-699) 12/23/16 13:05 Total Creatine Kinase 143 U/L (35-230) 12/23/16 13:05 Troponin I 0.07 ng/mL 12/23/16 13:05 Total Protein 6.4 g/dL (5.8-8.3) 12/28/16 07:00 Albumin 3.1 g/dL (3.0-4.8) 12/28/16 07:00 Globulin 3.3 gm/dL 12/28/16 07:00 Albumin/Globulin Ratio 0.9 (1.1-1.8) L 12/28/16 07:00 Lipase 33 U/L (23-300) 12/22/16 07:45 Free T4 1.26 ng/dL (0.78-2.19) 12/23/16 07:20 Total T3 1.53 ng/mL (0.97-1.69) 12/23/16 07:20 TSH 3rd Generation 2.98 mIU/mL (0.46-4.68) 12/23/16 07:20 Arterial Blood Potassium 4.1 mmol/L (3.6-5.2) 12/27/16 06:45 Blood Type O POSITIVE 12/22/16 07:45 Blood Type Confirm O POSITIVE 12/22/16 09:15 Antibody Screen Negative 12/22/16 07:45 BBK History Checked No verified bt 12/22/16 07:45 - Hospital Course Hospital Course: Upon Admission 76 yo M with PMH of MS (chronic R-sided muscle weakness), PA s/p 2 stents, hypothyroidism, chronic constipation on daily Miralax, hydrocele, COPD, HTN, HLD, and hearing loss bilaterally who presented to [facility] 1 day after mechanical fall onto left side with intractable left flank and left chest pain. As per patient, he was walking to his car, and believes he hit some debris when planting his left foot, causing him to lose his balance and fall. He denies syncope/near-syncope, weakness prior to/during/after the fall, memory loss, or head trauma. Reports that he was able to protect his head on the way down, and did not strike it. Initially attempted to self manage his home pain, but today felt that the pain was unbearable, so he presented to the ED. Imaging in the ED was notable for left lateral rib fractures at ribs 7-9 ( mildly displaced 7th and 8th, non-displaced 9th). He reports no pain when lying at rest, but significant pain with any movement, deep breathing, or coughing. Denies physical difficultly breathing, radiating chest pain, nausea/ emesis, fevers/chills, diarrhea, dysuria/hematuria, or acute vision changes. Admits to baseline R-sided weakness 2/2 MS, no acute changes, and baseline constipation. All other ROS in 12-system review negative. Patient admitted to med/surg and surgery was consulted. CT chest was notable for ribs fractures, left ribs 7-9, 7 and 8 mildly displaced, 9 non-displaced, no PE, no pneumothorax/hemothorax noted and patient was placed in chest binder. Patient was encouraged to use IS to prevent worsening atelectasis, avoid predisposing to pneumonia. Pulm was consulted for cough and hx of COPD and started on meds accordingly. Anesthesia was consulted for a possible nerve block which was decided against. Pain management recommended Neurontin, Percocet , and a Lidocaine patch. Patient was advised to be OOB to chair and to ambulate with physical therapy. Patient had transaminitis and abdominal US showed significant mild hepatomegaly and diffusely increased echogenicity of the liver ; most likely hepatic steatosis. PT recommended [facility] and surgery recommended continuation of DVT ppx at [facility]. GI recommended continuation of bowel regimen upon discharge. On day of discharge patient was deemed medically stable for discharge. 1)Traumatic mechanical fall resulting in intractable chest pain: patient d/c on pain meds for SANJAY 2) Hx MS with R sided weakness: chronic- continue home meds 3) Hx of Hypothyroidism: chronic- continue home meds 4) Chronic constipation: likely secondary to pain meds- continue home meds 5) Hx of COPD: chronic- continue home meds 6) Hx of HTN: chronic- continue home meds 7) Hx of HLD: chronic- continue home meds 8) Hx of PA s/p stents: continue home meds Upon Discharge Patient was deemed medically stable for discharge to [facility]. Home medications were continued and patient was additionally prescribed: Levaquin, Flexeril, and Neurontin. If symptoms persisted or worsened patient was advised to visit ED immediately. Instructions discussed in detail with patient who understands and agrees. Please note this is a discharge summary. For full hospital course please refer to medical records. Discharge Exam - Head Exam Head Exam: ATRAUMATIC, NORMOCEPHALIC - Eye Exam Eye Exam: EOMI, Normal appearance, PERRL. absent: Conjunctival injection, Scleral icterus Pupil Exam: NORMAL ACCOMODATION - ENT Exam ENT Exam: Mucous Membranes Moist - Neck Exam Neck exam: Full Rom, Normal Inspection - Respiratory Exam Respiratory Exam: Chest Wall Tenderness (on R side), Clear to PA & Lateral, NORMAL BREATHING PATTERN. absent: Rales, Rhonchi, Wheezes, Respiratory Distress - Cardiovascular Exam Cardiovascular Exam: REGULAR RHYTHM, RRR, +S1, +S2. absent: Systolic Murmur - GI/Abdominal Exam GI & Abdominal Exam: Normal Bowel Sounds, Soft. absent: Firm, Guarding, Rigid, Tenderness - Extremities Exam Extremities exam: normal capillary refill, normal inspection, pedal pulses present Additional comments: DP/PT pulse 2+ b/l - Back Exam Back exam: NORMAL INSPECTION. absent: rash noted - Neurological Exam Neurological exam: Alert, Oriented x3 - Psychiatric Exam Psychiatric exam: Normal Affect, Normal Mood - Skin Skin Exam: Dry, Normal Color, Warm Discharge Plan - Discharge Medications Prescriptions: Cyclobenzaprine [Cyclobenzaprine HCl] 5 mg PO TID #42 tab Gabapentin [Neurontin] 300 mg PO TID #15 cap levoFLOXacin [Levaquin] 750 mg PO DAILY #10 tab oxyCODONE [oxycodone Hydrochloride] 10 mg PO Q4 #20 tab - Follow Up Plan Condition: STABLE Disposition: REHAB FACILITY/REHAB UNIT Instructions: Heart Failure (DC), Heart Failure (GEN), Pacemaker (DC), Pacemaker (GEN), Pulmonary Edema (DC), Pulmonary Edema (GEN), Multiple Sclerosis (DC), Rib Fracture (DC), COPD (Chronic Obstructive Pulmonary Disease) (DC), Ascites (DC), Ascites (GEN), Fall Prevention (DC), Shoulder Pain (GEN) Additional Instructions: - please continue your home meds as prescribed - please take Levaquin, Flexeril and Neurontin as prescribed - please follow up with your PMD Referrals: Isreal Choi MD [Primary Care Provider] - <Kacie Hitchcock - Last Filed: 12/28/16 16:51> Provider - Provider Date of Admission: 12/23/16 12:00 Attending physician: Kacie Hitchcock MD Primary care physician: Isreal Choi MD Hospital Course - Lab Results Lab Results: Most Recent Lab Values WBC 14.1 10^3/ul (4.5-11.0) H 12/27/16 06:40 RBC 3.33 10^6/uL (3.5-6.1) L 12/27/16 06:40 Hgb 9.5 g/dL (14.0-18.0) L 12/27/16 06:40 Hct 29.7 % (42.0-52.0) L 12/27/16 06:40 MCV 89.2 fl (80.0-105.0) 12/27/16 06:40 MCH 28.5 pg (25.0-35.0) 12/27/16 06:40 MCHC 32.0 g/dl (31.0-37.0) 12/27/16 06:40 RDW 15.4 % (11.5-14.5) H 12/27/16 06:40 Plt Count 218 10^3/uL (120.0-450.0) 12/27/16 06:40 MPV 8.8 fl (7.0-11.0) 12/27/16 06:40 Gran % 71.3 % (50.0-68.0) H 12/27/16 06:40 Lymph % (Auto) 17.7 % (22.0-35.0) L 12/27/16 06:40 Taylor % (Auto) 9.4 % (1.0-6.0) H 12/27/16 06:40 Eos % (Auto) 1.4 % (1.5-5.0) L 12/27/16 06:40 Baso % (Auto) 0.2 % (0.0-3.0) 12/27/16 06:40 Gran # 10.06 (1.4-6.5) H 12/27/16 06:40 Lymph # 2.5 (1.2-3.4) 12/27/16 06:40 Taylor # 1.3 (0.1-0.6) H 12/27/16 06:40 Eos # 0.2 (0.0-0.7) 12/27/16 06:40 Baso # 0.03 K/mm3 (0.0-2.0) 12/27/16 06:40 PT 15.1 SECONDS (9.4-12.5) H 12/24/16 06:40 INR 1.36 (0.93-1.08) H 12/24/16 06:40 APTT 29.1 Seconds (25.1-36.5) 12/24/16 06:40 pCO2 34 mm/Hg (35-45) L 12/27/16 06:45 pO2 65.0 mm/Hg (80-100) L 12/27/16 06:45 HCO3 20.6 mmol/L (21-28) L 12/27/16 06:45 ABG pH 7.39 (7.35-7.45) 12/27/16 06:45 ABG Total CO2 21.6 mmol.L (22-28) L 12/27/16 06:45 ABG O2 Saturation 97.1 % (95-98) 12/27/16 06:45 ABG Base Excess -3.6 mmol/L (-2.0-3.0) L 12/27/16 06:45 ABG Potassium 4.1 mmol/L (3.6-5.2) 12/27/16 06:45 Sodium 137.0 mmol/L (132-148) 12/27/16 06:45 Chloride 112.0 mmol/L (98-107) H 12/27/16 06:45 Glucose 95 mg/dl (75-110) 12/27/16 06:45 Lactate 0.7 mmol/L (0.7-2.1) 12/27/16 06:45 FiO2 32.0 % 12/27/16 06:45 Sodium 136 mmol/L (132-148) 12/28/16 07:00 Potassium 4.1 mmol/L (3.6-5.0) 12/28/16 07:00 Chloride 104 mmol/L (98-107) 12/28/16 07:00 Carbon Dioxide 26 mmol/L (21-33) 12/28/16 07:00 Anion Gap 11 (10-20) 12/28/16 07:00 BUN 29 mg/dL (7-21) H 12/28/16 07:00 Creatinine 1.2 mg/dl (0.8-1.5) 12/28/16 07:00 Est GFR ( Amer) > 60 12/28/16 07:00 Est GFR (Non-Af Amer) 59 12/28/16 07:00 POC Glucose (mg/dL) 100 mg/dL (65-110) 12/27/16 07:02 Random Glucose 118 mg/dL (70-110) H 12/28/16 07:00 Calcium 9.3 mg/dL (8.4-10.5) 12/28/16 07:00 Phosphorus 3.6 mg/dL (2.5-4.5) 12/26/16 09:40 Magnesium 2.4 mg/dL (1.7-2.2) H 12/26/16 09:40 Total Bilirubin 1.0 mg/dL (0.2-1.3) 12/28/16 07:00 Direct Bilirubin 0.7 mg/dL (0.0-0.4) H 12/23/16 09:27 AST 163 U/L (17-59) H 12/28/16 07:00 ALT 136 U/L (7-56) H 12/28/16 07:00 Alkaline Phosphatase 222 U/L (38-126) H 12/28/16 07:00 Lactate Dehydrogenase 560 U/L (333-699) 12/23/16 13:05 Total Creatine Kinase 143 U/L (35-230) 12/23/16 13:05 Troponin I 0.07 ng/mL 12/23/16 13:05 Total Protein 6.4 g/dL (5.8-8.3) 12/28/16 07:00 Albumin 3.1 g/dL (3.0-4.8) 12/28/16 07:00 Globulin 3.3 gm/dL 12/28/16 07:00 Albumin/Globulin Ratio 0.9 (1.1-1.8) L 12/28/16 07:00 Lipase 33 U/L (23-300) 12/22/16 07:45 Free T4 1.26 ng/dL (0.78-2.19) 12/23/16 07:20 Total T3 1.53 ng/mL (0.97-1.69) 12/23/16 07:20 TSH 3rd Generation 2.98 mIU/mL (0.46-4.68) 12/23/16 07:20 Arterial Blood Potassium 4.1 mmol/L (3.6-5.2) 12/27/16 06:45 Blood Type O POSITIVE 12/22/16 07:45 Blood Type Confirm O POSITIVE 12/22/16 09:15 Antibody Screen Negative 12/22/16 07:45 BBK History Checked No verified bt 12/22/16 07:45 Attending/Attestation - Attestation I have personally seen and examined this patient.: Yes I have fully participated in the care of the patient.: Yes I have reviewed all pertinent clinical information, including history, physical exam and plan: Yes Notes (Text): 12/28/16 16:49 Attending note; Patient seen and examined with resident. Patient is a 76 year old male with history of MS with chronic right sided muscle weakness, PA s/p cardiac stent, hypothyroidism, chronic constipation on daily Miralax, COPD, former smoker, HTN, HLD, and hearing loss bilaterally who presented to [facility] s/p mechanical fall and developed multiple rib fractures on the left side. Chest binder in place. Will continue IV analgesics. Surgery consult appreciated. The patient is alert and awake. Repeat chest x-ray showed significant improvement in the right middle lobe infiltrate. COPD; pulmonary evaluation appreciated. Continue oxygen and xopenex treatment when necessary. Constipation; continue MiraLAX and Colace. GI evaluation appreciated. Abdominal ultrasound ordered. Abdominal x-ray is negative for ileus or obstruction. LFTs improving. Tylenol stopped. Follow-up LFT as outpatient. Transfer to [facility] today. Upon discharge patient will follow up with . Diagnosis; Rib fracture Status post fall/weight instability MS Coronary artery disease Chronic constipation COPD 12/28/16 16:50
== END 2016-12-28 11:07 | DRG 183 ==
LOC: ED 06:36 → ERH 10:49 → 5RNO 11:50 → OBSVTOIN 12-23 12:00
PROVIDERS: ADMIT Hospitalist; ATTEND Internal Medicine
DX: S22.42XA Multiple fractures of ribs, left side, initial encounter for closed fracture (principal); J18.9 Pneumonia, unspecified organism; J44.0 Chronic obstructive pulmonary disease with (acute) lower respiratory infection; J98.11 Atelectasis; I13.0 Hypertensive heart and chronic kidney disease with heart failure and stage 1 through stage 4 chronic kidney disease, or unspecified chronic kidney disease; K76.0 Fatty (change of) liver, not elsewhere classified; I50.9 Heart failure, unspecified; J84.10 Pulmonary fibrosis, unspecified; G35 Multiple sclerosis; N40.0 Benign prostatic hyperplasia without lower urinary tract symptoms; H91.93 Unspecified hearing loss, bilateral; E03.9 Hypothyroidism, unspecified; S20.212A Contusion of left front wall of thorax, initial encounter; S70.02XA Contusion of left hip, initial encounter; N43.3 Hydrocele, unspecified; K59.09 Other constipation; E78.5 Hyperlipidemia, unspecified; K21.9 Gastro-esophageal reflux disease without esophagitis; M62.81 Muscle weakness (generalized); L80 Vitiligo; G47.30 Sleep apnea, unspecified; J98.01 Acute bronchospasm; N18.9 Chronic kidney disease, unspecified; I25.10 Atherosclerotic heart disease of native coronary artery without angina pectoris; W01.0XXA Fall on same level from slipping, tripping and stumbling without subsequent striking against object, initial encounter; Z86.010 Personal history of colon polyps; I25.2 Old myocardial infarction; Y92.410 Unspecified street and highway as the place of occurrence of the external cause; Z95.5 Presence of coronary angioplasty implant and graft; Z87.891 Personal history of nicotine dependence

== ENCOUNTER 2017-02-05 10:42 | Inpatient (IN) | payer MEDICARE ==
[2017-02-05 10:54] VITALS: BMI 29.3
[2017-02-05] MEDS ORDERED: Sodium Chloride 0.9% 1,000 ML IV STA (11:05)
[2017-02-05] MEDS ORDERED: Morphine 4 mg/ml ISec IVP STA (11:05)
--- NOTE | 2017-02-05 11:06 | ED PDOC ---
Arrival/HPI - General Chief Complaint: Abdominal Pain Time Seen by Provider: 02/05/17 10:50 Historian: Patient - History of Present Illness Narrative History of Present Illness (Text): 02/05/17 11:05 A 76 year old male, whose past medical history includes hypertension, hypothyroidism, COPD, and MS, presents to the emergency department complaining of intermittent abdominal pain for 2 days. Patient describes the pain as a sharp sensation. He notes feeling lightheaded upon arrival to emergency room. Patient denies any fever, chills, body aches, nausea, vomiting, diarrhea, constipation, urinary symptoms, hematochezia, chest pain, shortness of breath, headache or any other complaints. PMD: Dr. Sebastian Time/Duration: Other (2 days) Symptom Course: Unchanged, Intermittent Quality: Other (sharp) Context: Home Past Medical History - Provider Review Nursing Documentation Reviewed: Yes - Infectious Disease Hx of Infectious Diseases: None - Tetanus Immunization Tetanus Immunization: Unknown - Cardiac Hx Cardiac Disorders: Yes Hx Congestive Heart Failure: Yes (silent [place]) Hx Hypertension: Yes - Pulmonary Hx Chronic Obstructive Pulmonary Disease (COPD): Yes - Neurological Hx Neurological Disorder: Yes - HEENT Hx HEENT Disorder: Yes Other/Comment: Left [place] - Renal Hx Renal Disorder: Yes Other/Comment: Kidney Cyst- benign - Endocrine/Metabolic Hx Hypothyroidism: Yes - Hematological/Oncological Hx Blood Disorders: Yes - Integumentary Hx Dermatological Disorder: Yes Other/Comment: Dermatitis. Vitiligo - Musculoskeletal/Rheumatological Hx Musculoskeletal Disorders: Yes Hx Falls: No - Gastrointestinal Hx Gastrointestinal Disorders: Yes Hx Gastroesophageal Reflux: Yes Other/Comment: Endoscopy upper/lower- baretts. Polyps removed. Colonoscopy 7 months ago. - Genitourinary/Gynecological Hx Genitourinary Disorders: Yes Hx Prostate Problems: Yes (BPH) Other/Comment: Urgency in urination. Erectile Dysfunction. Right hydrocoele ( Scrotum) - Psychiatric Hx Emotional Abuse: No Hx Physical Abuse: No Hx Substance Use: No - Surgical History Hx Appendectomy: Yes Hx Cardiac Catheterization: Yes Hx Orthopedic Surgery: Yes Other/Comment: ex-lap, right elbow repair, left elbow rotator cuff repair 2016 - Anesthesia Hx Anesthesia: Yes Hx Anesthesia Reactions: Yes ("BLEEDING FROM AIRWAY USED") Hx Malignant Hyperthermia: No - Suicidal Assessment Feels Threatened In Home Enviroment: No Family/Social History - Physician Review Nursing Documentation Reviewed: Yes Family/Social History: No Known Family HX Smoking Status: Former Smoker Hx Alcohol Use: Yes (H/O) Hx Substance Use: No Hx Substance Use Treatment: No Allergies/Home Meds Allergies/Adverse Reactions: Allergies tape Adverse Reaction (Uncoded 02/05/17 11:01) REDNESS Home Medications: Home Meds Medication Instructions Recorded Confirmed Ascorbic Acid [Vitamin C] 1,000 mg PO QAM 09/13/11 02/05/17 Atorvastatin [Lipitor] 40 mg PO QAM 09/13/11 02/05/17 Natalizumab [Tysabri] 1 dose IV ONCE 09/13/11 02/05/17 Mefloquine [Lariam] 250 mg PO MON 01/20/15 02/05/17 Mirtazapine [Remeron] 15 mg PO HS 01/20/15 02/05/17 Esomeprazole Magnesium [Nexium] 40 mg PO DAILY 05/12/15 02/05/17 Montelukast [Singulair] 10 mg PO HS 05/12/15 02/05/17 [place]-3 Fatty Acids/Fish Oil 300 mg PO DAILY 05/12/15 02/05/17 [[place] 3 Fish Oil Softgel] Prasugrel [Effient] 10 mg PO DAILY 05/12/15 02/05/17 Temazepam [Restoril] 7.5 mg PO HS 05/12/15 02/05/17 Vitamin B Complex [Super B-50 1 tab PO DAILY 05/12/15 02/05/17 Complex] Lisinopril [Zestril] 5 mg PO DAILY 07/30/15 02/05/17 Tiotropium [Spiriva] 18 mcg NEB DAILY 07/30/15 02/05/17 Venlafaxine HCl [Venlafaxine HCl 75 mg PO DAILY 07/30/15 02/05/17 ER] buPROPion [Wellbutrin] 100 mg PO DAILY 07/30/15 02/05/17 Multivit-Min/FA/Lycopen/Lutein 1 tab PO DAILY 09/05/15 02/05/17 [Centrum Silver Tablet] Fluticasone Furoate [Arnuity 1 inh INH DAILY 03/13/16 02/05/17 Ellipta] Cholecalciferol [Vitamin D 1000 IU] 1 tab PO DAILY 03/17/16 02/05/17 Aspirin [Ecotrin] 324 mg PO DAILY 12/22/16 02/05/17 Oxycodone HCl/Acetaminophen 1 tab PO PRN PRN 02/05/17 02/05/17 [Endocet 325 mg-7.5 mg] Review of Systems - Physician Review All systems were reviewed & negative as marked: Yes - Review of Systems Constitutional: absent: Fevers, Night Sweats Respiratory: absent: SOB Cardiovascular: absent: Chest Pain Gastrointestinal: Abdominal Pain. absent: Constipation, Diarrhea, Nausea, Vomiting, Hematochezia Genitourinary Male: absent: Dysuria, Frequency, Hematuria, Urinary Output Changes Neurological: Other (Lightheadedness). absent: Headache Physical Exam Vital Signs Reviewed: Yes Vital Signs Temp Pulse Resp BP Pulse Ox 02/05/17 14:22 98.4 F 95 H 19 124/73 95 02/05/17 11:08 97.6 F 91 H 19 123/70 95 Temperature: Afebrile Blood Pressure: Normal Pulse: Tachycardic Respiratory Rate: Normal Appearance: Positive for: Well-Appearing, Non-Toxic, Comfortable Pain Distress: None Mental Status: Positive for: Alert and Oriented X 3 - Systems Exam Head: Present: Atraumatic, Normocephalic Pupils: Present: PERRL Extroacular Muscles: Present: EOMI Conjunctiva: Present: Normal Mouth: Present: Moist Mucous Membranes Neck: Present: Normal Range of Motion Respiratory/Chest: Present: Clear to Auscultation, Good Air Exchange. No: Respiratory Distress, Accessory Muscle Use Cardiovascular: Present: Regular Rate and Rhythm, Normal S1, S2. No: Murmurs Abdomen: Present: Tenderness (Diffuse abominal tenderness to palpation), Normal Bowel Sounds, Guarding. No: Distention, Peritoneal Signs, Rebound Back: Present: Normal Inspection Upper Extremity: Present: Normal Inspection. No: Cyanosis, Edema Lower Extremity: Present: Normal Inspection. No: Edema Neurological: Present: GCS=15, CN II-XII Intact, Speech Normal Skin: Present: Warm, Dry, Normal Color. No: Rashes Psychiatric: Present: Alert, Oriented x 3, Normal Insight, Normal Concentration Medical Decision Making ED Course and Treatment: 02/05/17 11:05 Impression: A 76 year old male with abdominal pain Differential Diagnosis included but are not limited to: Obstruction vs. Diverticulitis Plan: -- Abdominal CT -- Labs -- Urinalysis -- Pepcid, Morphine and IV fluids -- Reassess and disposition Progress Notes: EKG shows sinus tachycardia at 101 BPM with bifascicular block with no changes from prior. Interpreted by me. Report Date : 02/05/2017 14:32:52 PROCEDURE: CT Abdomen and Pelvis with contrast Dictator : Gabriela Angel MD IMPRESSION: 1. Findings are consistent with acute high-grade proximal small bowel obstruction with the transition zone likely in the proximal jejunum in the mid abdomen. Given multiple surgical clips in the midabdomen, findings could be related to adhesions. 2. No other significant interval change since the prior examination. 02/05/17 14:42 Patient's pain improved but still having symptoms. Abdominal exam unchanged. CT results reviewed with acute high-grade proximal small bowel obstruction. Call was made to Dr. Choi and registered nurse surgical services. Pending call back. Dr. Wall called and pending call back. She is covering for Dr. Ojeda. 02/05/17 15:[address] Choi. History, physical, CT and labs reviewed in detail. He recommends calling his registered nurse surgical services Dr. Flaca Flaherty who will come and see Patient. Does not recommend antibiotics at this time. He recommends admitting to his service. Dr. Wall aware. 02/05/17 15:49 Case was communicated with physician president Dr. Flaca Flaherty who is in the OR with Dr. Palafox and will be down shortly. 02/05/17 16:53 Dr. Peters, registered nurse surgical services, came to evaluate patient and discussed case with Dr. Choi. He states guaic was negative. He will place an NGT. - Critical Care Critical Care Minutes: 45 minutes - Lab Interpretations Lab Results: 02/05/17 11:50 02/05/17 11:50 Lab Results 02/05/17 11:50: pO2 37, VBG pH 7.36, VBG pCO2 54.0, VBG HCO3 30.5 H, VBG Total CO2 32.2 H, VBG O2 Sat (Calc) 71.6 H, VBG Base Excess 3.7 H, VBG Potassium 4.6, Sodium 141.0, Chloride 103.0, Glucose 127 H, Lactate 1.4, FiO2 21.0, Venous Blood Potassium 4.6 02/05/17 11:50: Sodium 143, Chloride 101, Potassium 4.5, Carbon Dioxide 28, Anion Gap 17, BUN 15, Creatinine 1.2, Est GFR ( Amer) > 60, Est GFR (Non- Af Amer) 59, Random Glucose 127 H, Calcium 10.0, Total Bilirubin 0.6, AST 42, ALT 32, Alkaline Phosphatase 176 H D, Total Protein 8.0, Albumin 4.4, Globulin 3.7, Albumin/Globulin Ratio 1.2, Lipase 63 02/05/17 11:50: PT 11.9, INR 1.06, APTT 30.0 02/05/17 11:50: WBC 11.6 H, RBC 4.93, Hgb 14.3 D, Hct 44.3, MCV 89.9, MCH 29.0 , MCHC 32.3, RDW 14.7 H, Plt Count 292, MPV 8.9, Gran % 73.8 H, Lymph % (Auto) 20.5 L, [place] % (Auto) 4.8, Eos % (Auto) 0.6 L, Baso % (Auto) 0.3, Gran # 8.52 H , Lymph # 2.4, [place] # 0.6, Eos # 0.1, Baso # 0.03 I have reviewed the lab results: Yes - RAD Interpretation Radiology Orders: 02/05/17 11:10 ABD PELVIS PO & IV CONTRAST [CT] Stat - Medication Orders Current Medication Orders: Famotidine (Pepcid) 20 mg PO BID DUNIA Sodium Chloride (Sodium Chloride 0.9%) 1,000 mls @ 75 mls/hr IV .[id number] STA Stop: 02/06/17 00:24 Last Admin: 02/05/17 12:09 Dose: 75 mls/hr eMAR Start Stop Document 02/05/17 12:09 [place] (Rec: 02/05/17 12:09 [facility] [id number]) Intravenous Solution Start Date 02/05/17 Start Time 12:09 Ceftriaxone Sodium (Rocephin 1 Gram Ivpb) 1 gm in 100 mls @ 100 mls/hr IVPB DAILY [facility] PRN Reason: Protocol Metronidazole (Flagyl) 500 mg in 100 mls @ 100 mls/hr IVPB Q8 DUNIA PRN Reason: Protocol Morphine Sulfate (Morphine) 4 mg IVP Q4H PRN PRN Reason: Pain, moderate (4-7) Discontinued Medications Famotidine (Pepcid) 20 mg IVP STAT STA Stop: 02/05/17 11:06 Last Admin: 02/05/17 12:10 Dose: 20 mg IVP Administration Document 02/05/17 12:10 [place] (Rec: 02/05/17 12:10 [id number] Charges for Administration # of IVP Administrations 1 Morphine Sulfate (Morphine) 4 mg IVP STAT STA Stop: 02/05/17 11:06 Last Admin: 02/05/17 12:09 Dose: 4 mg MAR Pain Assessment Document 02/05/17 12:09 [place] (Rec: 02/05/17 12:10 [id number] Pain Reassessment Is this a pain reassessment? No Sleep Is patient sleeping during reassessment? No Presence of Pain Presence of Pain Yes Pain Scale Used Pain Scale Used Numeric Location Upper or Lower Lower Pain Location Body Site Abdomen Description Intensity of Pain at present 7 IVP Administration Document 02/05/17 12:09 [place] (Rec: 02/05/17 12:10 [id number] Charges for Administration # of IVP Administrations 1 Morphine Sulfate (Morphine) 6 mg IVP STAT STA Stop: 02/05/17 14:23 Last Admin: 02/05/17 14:35 Dose: 6 mg MAR Pain Assessment Document 02/05/17 14:35 [place] (Rec: 02/05/17 14:43 [id number] Pain Reassessment Is this a pain reassessment? Yes Sleep Is patient sleeping during reassessment? No Presence of Pain Presence of Pain Yes Pain Scale Used Pain Scale Used Numeric Location Pain Location Body Site Abdomen Description Description Dull Intensity of Pain at present 7 Acceptable Level of Pain 4 IVP Administration Document 02/05/17 14:35 [place] (Rec: 02/05/17 14:43 [id number] Charges for Administration # of IVP Administrations 1 Ondansetron HCl (Zofran Inj) 4 mg IVP STAT STA Stop: 02/05/17 12:06 Last Admin: 02/05/17 12:11 Dose: 4 mg IVP Administration Document 02/05/17 12:11 [place] (Rec: 02/05/17 12:11 [place] [facility] [id number]) Charges for Administration # of IVP Administrations 1 - Scribe Statement The provider has reviewed the documentation as recorded by the Scribe Kaia Soriano Provider Scribe Attestation: All medical record entries made by the Scribe were at my direction and personally dictated by me. I have reviewed the chart and agree that the record accurately reflects my personal performance of the history, physical exam, medical decision making, and the department course for this patient. I have also personally directed, reviewed, and agree with the discharge instructions and disposition. Disposition/Present on Arrival - Present on Arrival Any Indicators Present on Arrival: No History of DVT/PE: No History of Uncontrolled Diabetes: No Urinary Catheter: No History of Decub. Ulcer: No History Surgical Site Infection Following: None - Disposition Have Diagnosis and Disposition been Completed?: Yes Diagnosis: Small bowel obstruction Disposition: HOSPITALIZED Disposition Time: 14:45 Patient Plan: Admission Patient Problems: Current Active Problems Problem Status Onset Small bowel obstruction Acute Condition: FAIR
[2017-02-05] MEDS ORDERED: Iohexol 240 (50 ml) ONE (11:16)
[2017-02-05 12:12] LABS: VENOUS BLOOD GAS BASE EXCESS 3.7 mmol/L (0.0-2.0); VENOUS BLOOD GAS PO2 37 mm/Hg (30-55); VENOUS BLOOD PH 7.36 (7.32-7.43)
[2017-02-05 12:15] LABS: BASO # 0.03 K/mm3 (0.0-2.0); BASO % 0.3 % (0.0-3.0); EOS # 0.1 (0.0-0.7); EOS % 0.6 % (1.5-5.0); GRAN # 8.52 (1.4-6.5); GRAN % 73.8 % (50.0-68.0); HEMOGLOBIN 14.3 g/dL (14.0-18.0); LYMPH # 2.4 (1.2-3.4); LYMPH % 20.5 % (22.0-35.0); MEAN CELL VOLUME 89.9 fl (80.0-105.0); MEAN CORPUSCULAR HGB CONC 32.3 g/dl (31.0-37.0); MEAN PLATELET VOLUME 8.9 fl (7.0-11.0); MONO # 0.6 (0.1-0.6); MONO % 4.8 % (1.0-6.0); RBC 4.93 10^6/uL (3.5-6.1); RED CELL DISTRIBUTION WIDTH 14.7 % (11.5-14.5); WHITE BLOOD COUNT 11.6 10^3/ul (4.5-11.0)
[2017-02-05 12:23] LABS: ALB/GLOB RATIO 1.2 (1.1-1.8); ALBUMIN 4.4 g/dL (3.0-4.8); ALT/SGPT 32 U/L (7-56); AST/SGOT 42 U/L (17-59); BLOOD UREA NITROGEN 15 mg/dL (7-21); GFR AFRICAN-AMERICAN > 60; GFR NON-AFRICAN AMERICAN 59; LIPASE 63 U/L (23-300)
[2017-02-05 12:29] LABS: INR 1.06 (0.93-1.08); PROTHROMBIN TIME 11.9 SECONDS (9.4-12.5)
[2017-02-05] MEDS ORDERED: Iohexol 350 MG/100 ML VIAL ONE (12:36)
--- NOTE | 2017-02-05 14:34 | CT ---
PROCEDURE: CT Abdomen and Pelvis with contrast HISTORY: Abdominal pain, r/o obstruction vs diverticulitis COMPARISON: 12/22/2016. TECHNIQUE: CT scan of the abdomen and pelvis was performed after intravenous administration of contrast. Oral contrast was not administered. Coronal and sagittal reformatted images were obtained. Contrast dose: 100 mL Omnipaque 350 Radiation dose: Total exam DLP = 773.72 mGy-cm. This CT exam was performed using one or more of the following dose reduction techniques: Automated exposure control, adjustment of the mA and/or kV according to patient size, and/or use of iterative reconstruction technique. FINDINGS: LOWER THORAX: There is bibasilar subsegmental atelectasis. LIVER: The liver is normal in size and there is homogeneous enhancement. No intrahepatic biliary ductal dilatation. GALLBLADDER AND BILE DUCTS: There are no calcified gallstones. PANCREAS: Normal in size with homogeneous enhancement. No gross lesion or ductal dilatation. SPLEEN: Normal in size and appearance. ADRENALS: No discrete nodule. KIDNEYS AND URETERS: Both kidneys are normal in size. There is mild renal cortical atrophy and a stable 1.6 cm rim calcified exophytic cyst in the right lower pole. VASCULATURE: There are advanced atherosclerotic aortoiliac calcifications. No aortic aneurysm. BOWEL: There is moderate dilatation of fluid-filled proximal small bowel loops with fecalization of small bowel contents. The mid and distal small bowel loops are normal in caliber. The ileocecal junction is normal. APPENDIX: No inflammatory changes in the right lower quadrant. PERITONEUM: No free fluid or free intraperitoneal air. LYMPH NODES: No enlarged lymph nodes. BLADDER: Normal in appearance. REPRODUCTIVE: Unremarkable. BONES: There are healing fractures in the left posterior 8th rib. There is diffuse bone demineralization and multilevel degenerative changes in the spine. OTHER FINDINGS: There are multiple surgical clips in the mid abdomen. IMPRESSION: 1. Findings are consistent with acute high-grade proximal small bowel obstruction with the transition zone likely in the proximal jejunum in the mid abdomen. Given multiple surgical clips in the midabdomen, findings could be related to adhesions. 2. No other significant interval change since the prior examination.
[2017-02-05] MEDS: cefTRIAXone 1 gm 1 GM/100 ML BAG IVPB SCH (17:00)
--- NOTE | 2017-02-05 17:22 | CARD ---
APPROVED REPORT EKG Measurement Heart [id number] <Conclusion> Sinus tachycardia Right bundle branch block Left anterior fascicular block Bifascicular block Inferior infarct, age undetermined Abnormal ECG
[2017-02-05] MEDS: metroNIDAZOLE IV 500 mg/100 ml 500 MG/100 ML BAG IVPB SCH ×2 (17:26→22:53)
[2017-02-05 17:33] LABS: BASO # 0.02 K/mm3 (0.0-2.0); BASO % 0.2 % (0.0-3.0); EOS # 0.1 (0.0-0.7); EOS % 1.1 % (1.5-5.0); GRAN # 6.35 (1.4-6.5); GRAN % 60.7 % (50.0-68.0); HEMOGLOBIN 12.4 g/dL (14.0-18.0); LYMPH # 3.2 (1.2-3.4); LYMPH % 30.9 % (22.0-35.0); MEAN CORPUSCULAR HEMOGLOBIN 28.8 pg (25.0-35.0); MEAN PLATELET VOLUME 8.8 fl (7.0-11.0); MONO # 0.7 (0.1-0.6); MONO % 7.1 % (1.0-6.0); RBC 4.31 10^6/uL (3.5-6.1); RED CELL DISTRIBUTION WIDTH 14.6 % (11.5-14.5); WHITE BLOOD COUNT 10.5 10^3/ul (4.5-11.0)
[2017-02-05 17:44] LABS: BLOOD UREA NITROGEN 15 mg/dL (7-21); GFR AFRICAN-AMERICAN > 60; GFR NON-AFRICAN AMERICAN > 60
[2017-02-05] MEDS: Morphine 5 MG/ML SYRINGE IVP PRN ×2 (17:44→21:24)
--- NOTE | 2017-02-05 18:08 | CP.PCM.CON ---
History of Present Illness - History of Present Illness History of Present Illness: General Surgery- Dr. Choi 76M w/ pmhx of MS-chronic R-sided muscle weakness, [place] s/p cardiac stent x2, hypothyroidism, COPD, HTN, HLD, bilateral hearing loss, chronic constipation on daily Miralax who [place] [facility] [place] worsening of abdominal pain that is localized in the mid-epigastrum. Patient ran out of Miralax on Saturday and had not taken it since. Last BM was yesterday morning and has not passed flatus since. + nausea - vomiting. Normal BM is every 2-3 days. PMH: MS, [place] s/p stent x2, HTN, COPD, HLD, b/l hearing loss, chronic constipation , colonic polyps, barretts esophagus. PSH: multiple abd surgeries- ex-lap w/ clot (poss small bowel resection?), R. Inguinal hernia, supraclavicular node biopsy, cardiac stent x2 ALL: adhesive SocialHx: Former tobacco use 50years 2packs per day, quit over 15yrs ago. Social ETOH, denies recreational drug use Review of Systems - Review of Systems All systems: reviewed and no additional remarkable complaints except - Constitutional Constitutional: As Per HPI Past Patient History - Infectious Disease Hx of Infectious Diseases: None - Tetanus Immunizations Tetanus Immunization: Unknown - Past Medical History & Family History Past Medical History?: Yes - Past Social History Smoking Status: Former Smoker - CARDIAC Hx Cardiac Disorders: Yes Hx Congestive Heart Failure: Yes (silent [place]) Hx Hypertension: Yes - PULMONARY Hx Chronic Obstructive Pulmonary Disease (COPD): Yes - NEUROLOGICAL Hx Neurological Disorder: Yes - HEENT Hx HEENT Problems: Yes Other/Comment: Left [place] - RENAL Hx Chronic Kidney Disease: Yes Other/Comment: Kidney Cyst- benign - ENDOCRINE/METABOLIC Hx Hypothyroidism: Yes - HEMATOLOGICAL/ONCOLOGICAL Hx Blood Disorders: Yes - INTEGUMENTARY Hx Dermatological Problems: Yes Other/Comment: Dermatitis. Vitiligo - MUSCULOSKELETAL/RHEUMATOLOGICAL Hx Musculoskeletal Disorders: Yes Hx Falls: No - GASTROINTESTINAL Hx Gastrointestinal Disorders: Yes Hx Gastroesophageal Reflux: Yes Other/Comment: Endoscopy upper/lower- baretts. Polyps removed. Colonoscopy 7 months ago. - GENITOURINARY/GYNECOLOGICAL Hx Genitourinary Disorders: Yes Hx Prostate Problems: Yes (BPH) Other/Comment: Urgency in urination. Erectile Dysfunction. Right hydrocoele ( Scrotum) - PSYCHIATRIC Hx Emotional Abuse: No Hx Physical Abuse: No Hx Substance Use: No - SURGICAL HISTORY Hx Appendectomy: Yes Hx Cardiac Catheterization: Yes Hx Orthopedic Surgery: Yes Other/Comment: ex-lap, right elbow repair, left elbow rotator cuff repair 2016 - ANESTHESIA Hx Anesthesia: Yes Hx Anesthesia Reactions: Yes ("BLEEDING FROM AIRWAY USED") Hx Malignant Hyperthermia: No Meds Allergies/Adverse Reactions: Allergies Allergy/AdvReac Type Severity Reaction Status Date / Time tape AdvReac REDNESS Uncoded 02/05/17 11:01 - Medications Medications: Current Medications Famotidine (Pepcid) 20 mg PO BID DUNIA Sodium Chloride (Sodium Chloride 0.9%) 1,000 mls @ 75 mls/hr IV .[id number] STA Stop: 02/06/17 00:24 Last Admin: 02/05/17 12:09 Dose: 75 mls/hr Ceftriaxone Sodium (Rocephin 1 Gram Ivpb) 1 gm in 100 mls @ 100 mls/hr IVPB DAILY DUNIA PRN Reason: Protocol Last Admin: 02/05/17 17:00 Dose: 100 mls/hr Metronidazole (Flagyl) 500 mg in 100 mls @ 100 mls/hr IVPB Q8 DUNIA PRN Reason: Protocol Last Admin: 02/05/17 17:26 Dose: 100 mls/hr Morphine Sulfate (Morphine) 4 mg IVP Q4H PRN PRN Reason: Pain, moderate (4-7) Last Admin: 02/05/17 17:44 Dose: 4 mg Physical Exam - Constitutional Appears: Non-toxic, No Acute Distress - Head Exam Head Exam: ATRAUMATIC - Eye Exam Eye Exam: EOMI. absent: Scleral icterus - ENT Exam ENT Exam: Mucous Membranes Moist - Respiratory Exam Respiratory Exam: NORMAL BREATHING PATTERN. absent: Accessory Muscle Use, Chest Wall Tenderness, Respiratory Distress - Cardiovascular Exam Cardiovascular Exam: +S1, +S2. absent: Bradycardia, Tachycardia - GI/Abdominal Exam GI & Abdominal Exam: Guarding, Soft, Tenderness. absent: Firm, Hernia Additional comments: voluntary guarding. no involuntary guarding tenderness localized supra-umbilical mid-epigastrum - Rectal Exam Rectal Exam: Hemorrhoids, NORMAL INSPECTION Additional comments: stool palpated in rectal vault - Extremities Exam Extremities exam: Positive for: normal inspection. Negative for: calf tenderness - Neurological Exam Neurological exam: Alert, Oriented x3 - Psychiatric Exam Psychiatric exam: Normal Affect - Skin Skin Exam: Intact, Warm Results - Vital Signs Recent Vital Signs: Last Vital Signs Temp 98 F 02/05/17 17:15 Pulse 94 H 02/05/17 17:15 Resp 19 02/05/17 17:15 BP 117/64 02/05/17 17:15 Pulse Ox 95 02/05/17 17:15 - Labs Result Diagrams: 02/05/17 17:20 02/05/17 17:20 Labs: Laboratory Results - last 24 hr 02/05/17 02/05/17 17:20 17:20 WBC 10.5 RBC 4.31 Hgb 12.4 L Hct 38.8 L MCV 90.0 MCH 28.8 MCHC 32.0 RDW 14.6 H Plt Count 265 MPV 8.8 Gran % 60.7 Lymph % (Auto) 30.9 [place] % (Auto) 7.1 H Eos % (Auto) 1.1 L Baso % (Auto) 0.2 Gran # 6.35 Lymph # 3.2 [place] # 0.7 H Eos # 0.1 Baso # 0.02 Sodium 139 Potassium 4.5 Chloride 105 Carbon Dioxide 25 Anion Gap 13 BUN 15 Creatinine 1.0 Est GFR ( Amer) > 60 Est GFR (Non-Af Amer) > 60 Random Glucose 104 Calcium 9.0 Assessment & Plan - Assessment and Plan (Free Text) Assessment: 76M abdominal pain, partial small bowel obstruction Plan: - NGT low continuous - IVF - GI/DVT ppx - conservative management for now - serial abdominal exams - monitor bowel function - discussed w/ Dr. Choi surgical attending George Peters PGY1
--- NOTE | 2017-02-05 23:38 | CON ---
DATE: 02/05/2017 The patient is seen in room 562. Actually, the patient was seen earlier in the Emergency Room. CHIEF COMPLAINT: Abdominal pain times 2 days duration. HISTOR OF PRESENT ILLNESS: This is a 76-year-old male with a history of hypertension, multiple sclerosis, chronic obstructive lung disease, coronary artery disease, congestive heart failure, myocardial infarction, GERD, Amezcua's esophagitis, BPH, chronic constipation, history of colonoscopy 7 months ago, appendectomy, cardiac catheterization, right inguinal hernia surgery, right elbow repair, who was ALLERGIC TO TAPE was admitted with abdominal pain times 2 days duration and has nausea, but he did not have any vomiting, no chest pain, no shortness of breath. He did have low grade fevers and occasional chills. No headaches or blurred vision. PAST MEDICAL HISTORY: Significant for hypertension, hypothyroidism, chronic obstructive lung disease, multiple sclerosis, bilateral [id number], coronary artery disease, congestive heart failure, myocardial infarction, GERD, Amezcua's esophagitis, BPH, chronic constipation. PAST SURGICAL HISTORY: Significant for colonoscopy, appendectomy, cardiac catheterization with stents and right inguinal hernia and right elbow repair. ALLERGIES: PATIENT IS ALLERGIC TO TAPE. MEDICATIONS: At home are reviewed and include Effient, Zestril, Wellbutrin, Xopenex inhalers, oxycodone, omega, Restoril, vitamins, natalizumab. PHYSICAL EXAMINATION: GENERAL: Patient is in bed in no acute distress. VITAL SIGNS: Temperature is 97, blood pressure is 120/70, respiratory rate of 19, heart rate of 95. Blood pressure is 123/78 on second valve. HEENT: Reveals an NG tube to be in place. NECK: Supple. LUNGS: Decreased breath sounds. HEART: Normal S1, S2. ABDOMEN: Mild diffuse tenderness. No rebound or guarding. No masses and no rebound. Laboratory examination reveals mildly elevated white count of 11,600, hemoglobin of 14, platelets of 292. Coagulation is noted and chemistries are reviewed. Alk phos of 176 with a glucose of 127 and cultures are pending. Patient had a CT scan of the abdomen which is read as small bowel obstruction. ASSESSMENT AND PLAN: This is a 76-year-old male with hypertension, hypothyroidism, chronic obstructive lung disease, multiple sclerosis, coronary artery disease, congestive heart failure with gastroesophageal reflux disease and Amezcua's esophagitis, benign prostatic hypertrophy with small bowel obstruction. We will treat the patient with Rocephin and Flagyl. Surgical consultation, GI consultation and we will make further recommendations upon availability of clinical response. We will follow with you Jak Gray MD
--- NOTE | 2017-02-05 23:47 | HP ---
HISTORY OF PRESENT ILLNESS: Mr. Dueñas is a 76-year-old male, admitted to the hospital with distention of abdomen, nausea and vomiting for past few days. CT of the abdomen showed small bowel obstruction. He has history of hypertension, blood pressure controlled with current medications; history of hypothyroidism. He also has history of COPD and multiple sclerosis. He has chronic pain in the neck. No fever, no cough with expectoration. He also has history of BPH. PAST MEDICAL HISTORY: BPH, congestive cardiac failure, PA, hypertension, multiple sclerosis, COPD, GE reflux, Amezcua's esophagus. PAST SURGICAL HISTORY: Appendectomy, cardiac catheterization, exploratory laparotomy, rotator cuff repair. PERSONAL HISTORY: Former smoker. No history of alcohol abuse. FAMILY HISTORY: Noncontributory. ALLERGIES: NO KNOWN DRUG ALLERGIES. HOME MEDICATIONS: Lipitor 40 mg daily; mefloquine 250 mg Mondays; Remeron 15 mg p.o. q.h.s.; Nexium 40 mg daily; Singulair daily; Restoril 7.5 mg p.o. h.s.; lisinopril 5 mg daily; B12 of 1 mg daily. REVIEW OF SYSTEMS: As per HPI. Rest of 12-point review of systems reviewed negative. PHYSICAL EXAMINATION: GENERAL: Comfortable in bed, in mild distress due to abdominal distention and pain. VITAL SIGNS: Temperature 98.6, heart rate is 95 per minute, respiratory rate 19 per minute, blood pressure 124/73, pulse oximetry is 95% on room air. HEENT: Pallor positive. NECK: No lymphadenopathy. CHEST: Air entry present and equal bilaterally. No added sounds. CARDIOVASCULAR EXAM: S1 and S2 are normal. No murmur. No gallop. ABDOMEN: Distended, slightly tender. Bowel sounds decreased. EXTREMITIES: Bilateral leg edema 1+. INDUSTRIAL WELDER: Alert and oriented x3. No focal sensory or motor deficit. LABORATORY DATA: White count 11.6, hemoglobin 14.3, hematocrit 44.3, platelet count 292. Sodium 143, potassium 4.5, BUN 15, creatinine 1.2, glucose 127, absolute granulocyte 8.5. Chest x-ray, no infiltrate. ASSESSMENT AND PLAN: 1. Small bowel obstruction. 2. Coronary artery disease. 2. Leukocytosis. PLAN: He will be admitted to the hospital, we will do tele monitoring, NG tube in place and draining dark colored fluid. Surgery consultation with Dr. Choi requested. IV fluid at 75 mL an hour normal saline ordered, morphine 4 mg IV q. 4 hours p.r.n. for abdominal pain, IV antibiotics, ceftriaxone 1 g daily and Flagyl 500 mg q.8 hours ordered. GI consultation with Dr. Rosas requested. We will get ID consultation for IV antibiotics. Maddy Wall MD
[2017-02-06] MEDS: Morphine 5 MG/ML SYRINGE IVP PRN ×5 (03:38→22:39)
[2017-02-06] MEDS: metroNIDAZOLE IV 500 mg/100 ml 500 MG/100 ML BAG IVPB SCH ×3 (05:36→21:30)
[2017-02-06] MEDS: Albuterol-Ipratrop 3 mg / 0.5 (3 ml) UD IH PRN ×2 (06:53→13:45)
[2017-02-06 09:02] LABS: BASO # 0.04 K/mm3 (0.0-2.0); BASO % 0.4 % (0.0-3.0); EOS # 0.3 (0.0-0.7); EOS % 2.5 % (1.5-5.0); GRAN # 6.93 (1.4-6.5); GRAN % 62.8 % (50.0-68.0); HEMOGLOBIN 11.8 g/dL (14.0-18.0); LYMPH # 3.2 (1.2-3.4); LYMPH % 28.6 % (22.0-35.0); MEAN CELL VOLUME 91.6 fl (80.0-105.0); MEAN CORPUSCULAR HEMOGLOBIN 28.4 pg (25.0-35.0); MONO # 0.6 (0.1-0.6); MONO % 5.7 % (1.0-6.0); RBC 4.16 10^6/uL (3.5-6.1); RED CELL DISTRIBUTION WIDTH 14.9 % (11.5-14.5)
--- NOTE | 2017-02-06 09:09 | CP.PCM.PN ---
Subjective - Date & Time of Evaluation Date of Evaluation: 02/06/17 Time of Evaluation: 06:55 - Subjective Subjective: General Surgery Progress Note - Dr. Choi Patient seen and examined at bedside. No acute events reported overnight. Patient complains of left lower quadrant pain consistent with presentation. Patient reports flatus and improved nausea. Patient denies chest pain, shortness of breath, vomiting, fever, chills. Patient currently with NG tube on low suction. Objective - Vital Signs/Intake and Output Vital Signs (last 24 hours): Temp Pulse Resp BP Pulse Ox 98.6 F 98 H 20 109/62 92 L 02/06/17 00:00 02/06/17 00:00 02/06/17 00:00 02/06/17 00:00 02/06/17 00:00 Intake and Output: 02/06/17 02/06/17 06:59 18:59 Intake Total 0 Balance 0 - Medications Medications: Current Medications Acetaminophen (Tylenol 650 Mg Supp) 650 mg RC Q4H PRN PRN Reason: Fever >100.4 F Albuterol/Ipratropium (Duoneb 3 Mg/0.5 Mg (3 Ml) Ud) 3 ml IH Q2H PRN PRN Reason: Shortness of Breath Last Admin: 02/06/17 06:53 Dose: 3 ml Benzocaine/Menthol (Cepacol Sore Throat) 1 katelynn MT Q2H PRN PRN Reason: Sore Throat Famotidine (Pepcid) 20 mg PO BID [facility] Ceftriaxone Sodium (Rocephin 1 Gram Ivpb) 1 gm in 100 mls @ 100 mls/hr IVPB DAILY [facility] PRN Reason: Protocol Last Admin: 02/05/17 17:00 Dose: 100 mls/hr Metronidazole (Flagyl) 500 mg in 100 mls @ 100 mls/hr IVPB Q8 D[facility] PRN Reason: Protocol Last Admin: 02/06/17 05:36 Dose: 100 mls/hr Morphine Sulfate (Morphine) 4 mg IVP Q4H PRN PRN Reason: Pain, moderate (4-7) Last Admin: 02/06/17 03:38 Dose: 4 mg - Labs Labs: 02/05/17 17:20 02/05/17 17:20 PT 11.9 SECONDS (9.4-12.5) 02/05/17 11:50 INR 1.06 (0.93-1.08) 02/05/17 11:50 APTT 30.0 Seconds (25.1-36.5) 02/05/17 11:50 - Constitutional Appears: No Acute Distress - Head Exam Head Exam: ATRAUMATIC, NORMAL INSPECTION, NORMOCEPHALIC - Eye Exam Eye Exam: EOMI, PERRL - ENT Exam ENT Exam: Mucous Membranes Moist Additional comments: NGT in place connected to wall suction draining green bilious fluid - Respiratory Exam Respiratory Exam: Clear to Ausculation Bilateral, NORMAL BREATHING PATTERN - Cardiovascular Exam Cardiovascular Exam: REGULAR RHYTHM, +S1, +S2 - GI/Abdominal Exam GI & Abdominal Exam: Distended, Guarding, Soft, Tenderness (LLQ>RLQ, supraumbilical, mid-epigastrum ). absent: Firm, Rigid - Extremities Exam Extremities Exam: Full ROM. absent: Calf Tenderness - Back Exam Back Exam: NORMAL INSPECTION - Neurological Exam Neurological Exam: Alert, Awake, Oriented x3 - Psychiatric Exam Psychiatric exam: Normal Affect, Normal Mood - Skin Skin Exam: Dry, Intact, Normal Color Assessment and Plan - Assessment and Plan (Free Text) Assessment: 76M abdominal pain, partial small bowel obstruction Plan: - NGT low continuous draining 300 cc of bilious fluid over past 12 hours - IVF - conservative management for now - serial abdominal exams - flat plat abdominal xray - monitor bowel function - Plan to discuss with Dr. Jimbo Ling PGY1
[2017-02-06 09:17] LABS: BLOOD UREA NITROGEN 15 mg/dL (7-21); CALCIUM 8.8 mg/dL (8.4-10.5); GFR AFRICAN-AMERICAN > 60; GFR NON-AFRICAN AMERICAN > 60
[2017-02-06] MEDS: cefTRIAXone 1 gm 1 GM/100 ML BAG IVPB SCH (10:33)
--- NOTE | 2017-02-06 11:19 | RAD ---
HISTORY: NGT placement COMPARISON: No prior. FINDINGS: LUNGS: No active pulmonary disease. PLEURA: No significant pleural effusion identified, no pneumothorax apparent. CARDIOVASCULAR: Normal. OSSEOUS STRUCTURES: No significant abnormalities. VISUALIZED UPPER ABDOMEN: The nasogastric tube is in satisfactory position OTHER FINDINGS: None. IMPRESSION: Nasogastric tube in satisfactory position
--- NOTE | 2017-02-06 13:28 | RAD ---
HISTORY: Small bowel obstruction COMPARISON: No prior. FINDINGS: BOWEL: Normal. No obstruction. No free air. BONES: Normal. OTHER FINDINGS: The nasogastric tube is in satisfactory position IMPRESSION: No active disease.
[2017-02-06] MEDS: Benzocaine/Menthol (Cepacol) Lozenge MT PRN ×2 (13:44→19:57)
[2017-02-06] MEDS ORDERED: Sodium Chloride 0.9% 1,000 ML IV SCH (23:15)
--- NOTE | 2017-02-07 00:21 | CON ---
DATE: 02/06/2017 REASON FOR CONSULTATION: Small bowel obstruction. HISTORY OF PRESENT ILLNESS: This 76-year-old patient with a past medical history of multiple sclerosis, right-sided weakness, coronary artery disease status post stent placement, hypothyroidism, COPD, hypertension, dyslipidemia, hearing loss, history of chronic constipation on MiraLax admitted with abdominal pain and distension. He gave the history of not pass the flatus for a day and no bowel movement for the last 2 days prior to the admission. The patient was found to have high grade small bowel obstruction with a multiple clips in the abdomen suggestive of possibly adhesions. The patient has been on NG tube decompression. He feels slightly better. Abdominal discomfort is improved. PAST MEDICAL HISTORY: Other past medical history is significant for colon polyps and Amezcua's esophagus. The patient had last colonoscopy done was in 02/2015, polyps removed. The patient had upper GI endoscopy done also the same time for Amezcua's. PAST SURGICAL HISTORY: Also significant for exploratory laparotomy with a small bowel resection, right inguinal hernia, and history of supraclavicular lymph node biopsy. ALLERGIES: ADHESIVES. SOCIAL HISTORY: Ex-smoker and social alcohol drink. REVIEW OF SYSTEMS: Positive as above. Other systems reviewed. PHYSICAL EXAMINATION GENERAL: The patient is lying on the bed, not in acute distress. VITAL SIGNS: Temperature is 98.1, blood pressure is 154/74, pulse of 94, and respirations of 18, and O2 saturation is 100%. HEENT: Atraumatic and anicteric. NECK: Supple. HEART: S1 and S2 heard. LUNGS: Bilateral air entry present. ABDOMEN: Softly distended. Bowel sounds are present. The patient has an NG tube which has a biliary drainage. EXTREMITIES: No cyanosis. No clubbing. NEUROLOGICAL: Alert. Moves all the extremities. LABORATORY DATA: Hemoglobin is 11.8, hematocrit is 38.1, WBC is 11, and platelets of 240. Chemistry is essentially unremarkable. DIAGNOSTIC DATA: The patient's CT scan of the abdomen and pelvis was reviewed showed a small bowel obstruction, high grade, possible adhesions to be considered. IMPRESSION AND PLAN: Small bowel obstruction. The patient is to follow up CT. Continued nasogastric tube decompression if still has a bilious. The patient says not passing flatus. Continue the intravenous fluids. Continue to closely follow up his care and suggest further management based on the clinical course. Kocaden Rosas MD [facility] # [id number]
--- NOTE | 2017-02-07 00:37 | PN ---
DATE: 02/06/2017 SUBJECTIVE: The patient was seen in bed, in no acute distress. Nontoxic, less abdominal pain and the patient was seen early this morning in room 562, bed 2. PHYSICAL EXAMINATION: VITAL SIGNS: Temperature is 98, blood pressure is 150/70, and respiratory rate is 18. HEENT: Unremarkable. The patient has NG tube in. NECK: Supple. LUNGS: Decreased breath sounds. HEART: Normal S1, S2. ABDOMEN: Soft and nontender. LABORATORY EXAMINATION: Reveals a white count of 11,000, hemoglobin of 11, and platelets of 240. Chemistries reveal BUN of 15, creatinine 1.1 with procalcitonin is less than 0.05. Microbiology, no cultures available. Review of orders reveals the patient to be on Flagyl and ceftriaxone. ASSESSMENT AND PLAN: This is a 76-year-old male with a history of hypertension, multiple sclerosis, chronic obstructive lung disease, coronary artery disease, congestive heart failure, myocardial infarction, gastroesophageal reflux disease, Amezcua's esophagitis, benign prostatic hyperplasia, chronic constipation, history of colonoscopy 7 months ago, appendectomy, cardiac catheterization, right inguinal hernia surgery, who was ALLERGIC TO TAPE was admitted now with small bowel obstruction on ceftriaxone, Flagyl. Surgery saw the patient. We will follow closely with you. We will check her now. We will follow her for further workup. Jak Gray MD
[2017-02-07] MEDS: metroNIDAZOLE IV 500 mg/100 ml 500 MG/100 ML BAG IVPB SCH ×3 (06:08→22:02)
[2017-02-07 08:28] VITALS: RESP 20
--- NOTE | 2017-02-07 08:51 | CP.PCM.PN ---
Subjective - Date & Time of Evaluation Date of Evaluation: 02/07/17 Time of Evaluation: 07:30 - Subjective Subjective: General Surgery Progress Note - Dr. Choi Patient seen and examined at bedside. No acute events reported overnight.Continuing to monitor NGT output, 650mL overnight. Patient continues to express abdominal pain left sided, tender with palpation. Patient reports passing flatus. Patient denies chest pain, shortness of breath, vomiting, fever , chills. Objective - Vital Signs/Intake and Output Vital Signs (last 24 hours): Temp Pulse Resp BP Pulse Ox 98.4 F 100 H 20 145/80 92 L 02/07/17 07:30 02/07/17 07:30 02/07/17 07:30 02/07/17 07:30 02/07/17 07:30 Intake and Output: 02/07/17 02/07/17 06:59 18:59 Intake Total 1875 Output Total 650 Balance 1225 - Medications Medications: Current Medications Acetaminophen (Tylenol 650 Mg Supp) 650 mg RC Q4H PRN PRN Reason: Fever >100.4 F Albuterol/Ipratropium (Duoneb 3 Mg/0.5 Mg (3 Ml) Ud) 3 ml IH Q2H PRN PRN Reason: Shortness of Breath Last Admin: 02/06/17 13:45 Dose: 3 ml Benzocaine/Menthol (Cepacol Sore Throat) 1 katelynn MT Q2H PRN PRN Reason: Sore Throat Last Admin: 02/06/17 19:57 Dose: 1 katelynn Famotidine (Pepcid) 20 mg PO BID [facility] Last Admin: 02/06/17 17:28 Dose: Not Given Ceftriaxone Sodium (Rocephin 1 Gram Ivpb) 1 gm in 100 mls @ 100 mls/hr IVPB DAILY [facility] PRN Reason: Protocol Last Admin: 02/06/17 10:33 Dose: 100 mls/hr Metronidazole (Flagyl) 500 mg in 100 mls @ 100 mls/hr IVPB Q8 [facility] PRN Reason: Protocol Last Admin: 02/07/17 06:08 Dose: 100 mls/hr Sodium Chloride (Sodium Chloride 0.9%) 1,000 mls @ 75 mls/hr IV .[id number] [facility] Last Admin: 02/07/17 00:34 Dose: 75 mls/hr Morphine Sulfate (Morphine) 4 mg IVP Q4H PRN PRN Reason: Pain, moderate (4-7) Last Admin: 02/06/17 22:39 Dose: 4 mg Ondansetron HCl (Zofran Inj) 4 mg IVP Q4H PRN PRN Reason: Nausea/Vomiting - Labs Labs: 02/06/17 08:00 02/06/17 08:00 PT 11.9 SECONDS (9.4-12.5) 02/05/17 11:50 INR 1.06 (0.93-1.08) 02/05/17 11:50 APTT 30.0 Seconds (25.1-36.5) 02/05/17 11:50 - Constitutional Appears: No Acute Distress - Head Exam Head Exam: ATRAUMATIC, NORMAL INSPECTION, NORMOCEPHALIC - Eye Exam Eye Exam: EOMI, PERRL - ENT Exam Additional comments: NGT in place connected to wall suction draining green bilious fluid - Respiratory Exam Respiratory Exam: Clear to Ausculation Bilateral, NORMAL BREATHING PATTERN - Cardiovascular Exam Cardiovascular Exam: REGULAR RHYTHM, +S1, +S2 - GI/Abdominal Exam GI & Abdominal Exam: Distended, Guarding, Soft, Tenderness (left sided abdomen) , Normal Bowel Sounds. absent: Firm, Rigid - Extremities Exam Extremities Exam: Full ROM - Back Exam Back Exam: NORMAL INSPECTION - Neurological Exam Neurological Exam: Alert, Awake, Oriented x3 - Psychiatric Exam Psychiatric exam: Normal Affect, Normal Mood - Skin Skin Exam: Dry, Intact Assessment and Plan - Assessment and Plan (Free Text) Assessment: 76M abdominal pain, partial small bowel obstruction Plan: - NGT on low continuous suction, output of ~650mL - IVF - continue conservative management - serial abdominal exams - monitor bowel function, reporting flatus - Plan to discuss with Dr. Jimbo Ling PGY1
[2017-02-07] MEDS: cefTRIAXone 1 gm 1 GM/100 ML BAG IVPB SCH (10:17)
[2017-02-07] MEDS: Morphine 5 MG/ML SYRINGE IVP PRN ×3 (10:17→20:56)
[2017-02-07] MEDS: Benzocaine/Menthol (Cepacol) Lozenge MT PRN (10:19)
[2017-02-07 11:41] LABS: BASO # 0.06 K/mm3 (0.0-2.0); BASO % 0.7 % (0.0-3.0); EOS # 0.2 (0.0-0.7); EOS % 2.4 % (1.5-5.0); GRAN # 6.08 (1.4-6.5); HEMOGLOBIN 12.1 g/dL (14.0-18.0); LYMPH # 2.2 (1.2-3.4); LYMPH % 24.3 % (22.0-35.0); MEAN CELL VOLUME 91.4 fl (80.0-105.0); MEAN CORPUSCULAR HEMOGLOBIN 28.3 pg (25.0-35.0); MEAN CORPUSCULAR HGB CONC 30.9 g/dl (31.0-37.0); MONO # 0.4 (0.1-0.6); MONO % 4.6 % (1.0-6.0); RBC 4.28 10^6/uL (3.5-6.1); RED CELL DISTRIBUTION WIDTH 14.5 % (11.5-14.5); WHITE BLOOD COUNT 8.9 10^3/ul (4.5-11.0)
[2017-02-07 12:01] LABS: ALB/GLOB RATIO 1.2 (1.1-1.8); ALBUMIN 3.5 g/dL (3.0-4.8); ALT/SGPT 30 U/L (7-56); AST/SGOT 29 U/L (17-59); BLOOD UREA NITROGEN 16 mg/dL (7-21); CALCIUM 8.8 mg/dL (8.4-10.5); GFR AFRICAN-AMERICAN > 60; GFR NON-AFRICAN AMERICAN > 60
[2017-02-07] MEDS ORDERED: POLYETHYLENE GLYCOL 3350 17 GM/Dose PACKET PO SCH (18:00)
--- NOTE | 2017-02-07 18:57 | PN ---
DATE: 02/07/2017 Patient is seen in room 562. SUBJECTIVE: Patient is in bed, states that he is passing gas but he has not had any bowel movement. He is awake and alert. No fevers. OBJECTIVE: VITAL SIGNS: Patient's temperature is 98, blood pressure is 140/80, respiratory rate of 16. HEENT: Unremarkable. NECK: Supple. LUNGS: Have decreased breath sounds. HEART: Normal S1, S2. ABDOMEN: Soft. Laboratory examination reveals a white count of 8, hemoglobin of 12, platelets of 233. BUN of 16, creatinine of 0.9. Procalcitonin is 0.05 and microbiology is noted. ASSESSMENT AND PLAN: This is a 76-year-old male with history of hypertension, multiple sclerosis, chronic obstructive lung disease, coronary artery disease, congestive heart failure, myocardial infarction, gastroesophageal reflux disease, Amezcua's esophagitis, benign prostatic hyperplasia, chronic constipation, appendectomy, cardiac catheterization, right inguinal hernia surgery in the past who is admitted now with small bowel obstruction appears to be improving, on ceftriaxone and Flagyl. White count is improved and we will follow with you. Jak Gray MD
--- NOTE | 2017-02-08 00:43 | PN ---
DATE: 02/07/2017 SUBJECTIVE: This patient was seen and evaluated today. The patient still has an NG tube. Abdomen appears less distended and passing flatus. PHYSICAL EXAMINATION: VITAL SIGNS: Temperature is 98.4, pulse 100, and blood pressure is 145/80. HEENT: Atraumatic and anicteric. NECK: Supple. HEART: S1 and S2 heard. LUNGS: Bilateral air entry present. ABDOMEN: Softly distended. Bowel sounds present and appears less distended. LABORATORY DATA: Hemoglobin 12.1, hematocrit 39.1, WBC is 8.9, and platelets 233. BUN 16 and creatinine 0.9. IMPRESSION: This 76-year-old patient with a small bowel obstruction, history of multiple surgeries in the past possibly secondary to adhesions. The patient has an nasogastric tube placement and appears less distended and passing flatus. PLAN: The plan for surgery is to clamp the NG tube and watch the patient. The patient has a history of Amezcua's esophagus and history of multiple colonic polyps. We will continue to closely follow up his care and suggest further management based on the clinical course. Continue the PPI. Thank you very much. Jessica Rosas MD
[2017-02-08] MEDS: metroNIDAZOLE IV 500 mg/100 ml 500 MG/100 ML BAG IVPB SCH (05:35)
[2017-02-08 07:37] VITALS: BP 169/97; PULSE 89; TEMP 98; O2SAT 95
--- NOTE | 2017-02-08 08:35 | CP.PCM.PN ---
Subjective - Date & Time of Evaluation Date of Evaluation: 02/08/17 Time of Evaluation: 07:10 - Subjective Subjective: General Surgery Progress Note - Dr. Choi Patient seen and examined at bedside. No acute events reported overnight. NGT tube pulled yesterday evening. Patient started on clear liquid diet and tolerated. Patient reports improved nausea, continued left sided abdominal pain. Patient reports passing flatus, no bm. Patient denies chest pain, shortness of breath, diarrhea, vomiting, fever, chills. Objective - Vital Signs/Intake and Output Vital Signs (last 24 hours): Temp Pulse Resp BP Pulse Ox 98.0 F 89 20 169/97 H 95 02/08/17 07:30 02/08/17 07:30 02/08/17 07:30 02/08/17 07:30 02/08/17 07:30 Intake and Output: 02/08/17 02/08/17 06:59 18:59 Intake Total 780 Balance 780 - Medications Medications: Current Medications Acetaminophen (Tylenol 650 Mg Supp) 650 mg RC Q4H PRN PRN Reason: Fever >100.4 F Albuterol/Ipratropium (Duoneb 3 Mg/0.5 Mg (3 Ml) Ud) 3 ml IH Q2H PRN PRN Reason: Shortness of Breath Last Admin: 02/06/17 13:45 Dose: 3 ml Benzocaine/Menthol (Cepacol Sore Throat) 1 katelynn MT Q2H PRN PRN Reason: Sore Throat Last Admin: 02/07/17 10:19 Dose: 1 katelynn Famotidine (Pepcid) 20 mg PO BID [facility] Last Admin: 02/07/17 18:57 Dose: 20 mg Ceftriaxone Sodium (Rocephin 1 Gram Ivpb) 1 gm in 100 mls @ 100 mls/hr IVPB DAILY DUNIA PRN Reason: Protocol Last Admin: 02/07/17 10:17 Dose: 100 mls/hr Metronidazole (Flagyl) 500 mg in 100 mls @ 100 mls/hr IVPB Q8 DUNIA PRN Reason: Protocol Last Admin: 02/08/17 05:35 Dose: 100 mls/hr Sodium Chloride (Sodium Chloride 0.9%) 1,000 mls @ 75 mls/hr IV .[id number] [facility] Last Admin: 02/07/17 00:34 Dose: 75 mls/hr Morphine Sulfate (Morphine) 4 mg IVP Q4H PRN PRN Reason: Pain, moderate (4-7) Last Admin: 02/07/17 20:56 Dose: 4 mg Ondansetron HCl (Zofran Inj) 4 mg IVP Q4H PRN PRN Reason: Nausea/Vomiting Polyethylene Glycol (Miralax) 17 gm PO BID [facility] Last Admin: 02/07/17 18:57 Dose: 17 gm - Labs Labs: 02/07/17 11:20 02/07/17 11:20 PT 11.9 SECONDS (9.4-12.5) 02/05/17 11:50 INR 1.06 (0.93-1.08) 02/05/17 11:50 APTT 30.0 Seconds (25.1-36.5) 02/05/17 11:50 - Constitutional Appears: Non-toxic, No Acute Distress - Head Exam Head Exam: ATRAUMATIC, NORMAL INSPECTION, NORMOCEPHALIC - Eye Exam Eye Exam: EOMI, PERRL - ENT Exam ENT Exam: Mucous Membranes Moist - Cardiovascular Exam Cardiovascular Exam: REGULAR RHYTHM, +S1, +S2 - GI/Abdominal Exam GI & Abdominal Exam: Distended, Guarding, Soft, Tenderness (Left sided, LLQ) - Extremities Exam Extremities Exam: absent: Calf Tenderness, Pedal Edema - Neurological Exam Neurological Exam: Alert, Awake, Normal Gait, Oriented x3 - Psychiatric Exam Psychiatric exam: Normal Affect, Normal Mood - Skin Skin Exam: Dry, Intact, Normal Color Assessment and Plan - Assessment and Plan (Free Text) Assessment: 76M abdominal pain, partial small bowel obstruction Plan: - NGT discontinued yesterday in PM - advance diet to clear liquids overnight, plan to advance diet as tolerated - continue conservative management - okay for discharge per patient request - discussed plan with Dr. Jimbo Ling PGY1
--- NOTE | 2017-02-08 11:30 | CP.PCM.PN ---
Subjective - Date & Time of Evaluation Date of Evaluation: 02/08/17 Time of Evaluation: 11:25 - Subjective Subjective: House Resident Physician Gurdeep Mulligan, IM PGY-2 Paged by nursing to see patient who wants to leave against medical advice (AMA) . As per nursing, patient was initially admitted for possible SBO, now apparently resolved, cleared by Surgery for discharge. However, still waiting on medical clearance by PMD (Dr. Wall). As per nursing, Dr. Wall informed patient would like to leave, but would not clear him before seeing him in person today, and was unable to give a specific time she would be in house to see the patient. Patient was upset by this, and decided to leave against medical advice. Risks of leaving against medical advice, including recurrence/ worsening of SBO, were discussed with patient, who expressed understanding but still elected to leave AMA. AMA form filled out, signed by myself, patient, and witnessing nurse. Patient then left against medical advice. Objective - Vital Signs/Intake and Output Vital Signs (last 24 hours): Temp Pulse Resp BP Pulse Ox 98.0 F 89 20 169/97 H 95 02/08/17 07:30 02/08/17 07:30 02/08/17 07:30 02/08/17 07:30 02/08/17 07:30 Intake and Output: 02/08/17 02/08/17 06:59 18:59 Intake Total 780 Balance 780 - Medications Medications: Current Medications Acetaminophen (Tylenol 650 Mg Supp) 650 mg RC Q4H PRN PRN Reason: Fever >100.4 F Albuterol/Ipratropium (Duoneb 3 Mg/0.5 Mg (3 Ml) Ud) 3 ml IH Q2H PRN PRN Reason: Shortness of Breath Last Admin: 02/06/17 13:45 Dose: 3 ml Benzocaine/Menthol (Cepacol Sore Throat) 1 katelynn MT Q2H PRN PRN Reason: Sore Throat Last Admin: 02/07/17 10:19 Dose: 1 katelynn Famotidine (Pepcid) 20 mg PO BID [facility] Last Admin: 02/07/17 18:57 Dose: 20 mg Sodium Chloride (Sodium Chloride 0.9%) 1,000 mls @ 75 mls/hr IV .[id number] [facility] Last Admin: 02/07/17 00:34 Dose: 75 mls/hr Morphine Sulfate (Morphine) 4 mg IVP Q4H PRN PRN Reason: Pain, moderate (4-7) Last Admin: 02/07/17 20:56 Dose: 4 mg Ondansetron HCl (Zofran Inj) 4 mg IVP Q4H PRN PRN Reason: Nausea/Vomiting Polyethylene Glycol (Miralax) 17 gm PO BID [facility] Last Admin: 02/07/17 18:57 Dose: 17 gm - Labs Labs: 02/07/17 11:20 02/07/17 11:20 PT 11.9 SECONDS (9.4-12.5) 02/05/17 11:50 INR 1.06 (0.93-1.08) 02/05/17 11:50 APTT 30.0 Seconds (25.1-36.5) 02/05/17 11:50
--- NOTE | 2017-02-08 12:13 | PN ---
DATE: 02/08/2017 SUBJECTIVE: The patient is in bed in no acute distress, nontoxic. PHYSICAL EXAMINATION: VITAL SIGNS: Temperature is 98, blood pressure is 160/90, respiratory rate 20, heart rate of 89. HEENT: Unremarkable. NECK: Supple. LUNGS: Have decreased breath sounds. HEART: Normal S1, S2. ABDOMEN: Soft. LABORATORY DATA: Reveals a white count of 8.9, hemoglobin of 12, platelets of 233. Chemistries reveals a BUN of 16, creatinine of 0.9. Procalcitonin is less than 0.05 and microbiology is noted. ASSESSMENT AND PLAN: A 76-year-old male who was seen early this morning, history of hypertension, multiple sclerosis, chronic obstructive lung disease, coronary artery disease, congestive heart failure, myocardial infarction, GI and Amezcua esophagitis, benign prostatic hypertrophy and hyperplasia and history of appendectomy, cardiac catheterization, history of right inguinal hernia surgery, admitted with a small bowel obstruction and patient's nasogastric tube is out now, patient is passing gas and tolerating liquid diet and his leukocytosis is resolved. We will discontinue the antibiotics. No further antibiotics indicated for this patient at this time. He appeared to be doing well as of this morning. Jak Gray MD
--- NOTE | 2017-02-08 13:03 | PN ---
DATE: 02/08/2017 SUMMARY: He was seen on the floor. He has no pain. His abdomen is soft. He is passing gas. He has not had a bowel movement yet. The plan will be to feed him and let him go home at his request. Isreal Choi MD
== END 2017-02-08 11:49 | disposition left against medical advice (07) | DRG 390 ==
LOC: ED 10:42 → ERH 15:33 → 5RNO 17:52
PROVIDERS: ADMIT Internal Medicine Medical Oncology; ATTEND Internal Medicine Medical Oncology
PROC: 0D9670Z Drainage of Stomach with Drainage Device, Via Natural or Artificial Opening (ICD-10-PCS; principal; 2017-02-05)
DX: K56.600 Partial intestinal obstruction, unspecified as to cause (principal); G35 Multiple sclerosis; I50.9 Heart failure, unspecified; J44.9 Chronic obstructive pulmonary disease, unspecified; E03.9 Hypothyroidism, unspecified; I11.0 Hypertensive heart disease with heart failure; I25.10 Atherosclerotic heart disease of native coronary artery without angina pectoris; N40.0 Benign prostatic hyperplasia without lower urinary tract symptoms; K21.9 Gastro-esophageal reflux disease without esophagitis; E78.5 Hyperlipidemia, unspecified; H91.93 Unspecified hearing loss, bilateral; K22.70 Barrett's esophagus without dysplasia; M54.2 Cervicalgia; G89.29 Other chronic pain; D72.829 Elevated white blood cell count, unspecified; I25.2 Old myocardial infarction; Z86.010 Personal history of colon polyps; Z95.5 Presence of coronary angioplasty implant and graft; Z87.891 Personal history of nicotine dependence; Z79.82 Long term (current) use of aspirin; Z79.899 Other long term (current) drug therapy

== ENCOUNTER 2017-03-04 15:16 | Inpatient (IN) | payer MEDICARE ==
[2017-03-04 15:22] VITALS: BMI 29.0
--- NOTE | 2017-03-04 15:39 | ED PDOC ---
Arrival/HPI - General Time Seen by Provider: 03/04/17 15:25 Historian: Patient - History of Present Illness Narrative History of Present Illness (Text): 03/04/17 15:25 Tonio Dueñas is a 76 year old male, whose past medical history includes COPD , who presents to the emergency department sent here from PMD's office for Shortness of breath with mild intermittent, non-productive cough for about one week. Patient states that he occasionally uses his nebulizer at home and has not been on steroids for about 6 months. Patient denies any chest pain or any other complaints at this time. Patient endorses that he quit smoking 33 years ago, does no drink alcohol, or do any drugs. Time/Duration: 1 week Symptom Onset: Gradual Symptom Course: Unchanged, Intermittent Activities at Onset: Light Context: Home Associated Symptoms (Text): 03/04/17 15:47 Sent to the emergency department via ambulance from the patient financial coordinator's office for a one-week history of shortness of breath which has been getting worse. Very mild intermittent nonproductive cough. No chest pain. No fever or chills. No travel or exposure. Past Medical History - Provider Review Nursing Documentation Reviewed: Yes - Infectious Disease Hx of Infectious Diseases: None - Tetanus Immunization Tetanus Immunization: Unknown - Cardiac Hx Cardiac Disorders: Yes Hx Congestive Heart Failure: Yes (silent IA) Hx Hypertension: Yes - Pulmonary Hx Chronic Obstructive Pulmonary Disease (COPD): Yes - Neurological Hx Neurological Disorder: Yes (MS) - HEENT Hx HEENT Disorder: Yes Other/Comment: Left V[place], wears hearing aids rhona - Renal Hx Renal Disorder: Yes Other/Comment: Kidney Cyst- benign - Endocrine/Metabolic Hx Hypothyroidism: Yes - Hematological/Oncological Hx Blood Disorders: Yes - Integumentary Hx Dermatological Disorder: Yes Other/Comment: Dermatitis. Vitiligo - Musculoskeletal/Rheumatological Hx Musculoskeletal Disorders: Yes Hx Falls: No - Gastrointestinal Hx Gastrointestinal Disorders: Yes Hx Gastroesophageal Reflux: Yes Other/Comment: Endoscopy upper/lower- baretts. Polyps removed. Colonoscopy 7 months ago. - Genitourinary/Gynecological Hx Genitourinary Disorders: Yes Hx Prostate Problems: Yes (BPH) Other/Comment: Urgency in urination. Erectile Dysfunction. Right hydrocoele ( Scrotum) - Psychiatric Hx Emotional Abuse: No Hx Physical Abuse: No Hx Substance Use: No - Surgical History Hx Appendectomy: Yes Hx Cardiac Catheterization: Yes Hx Orthopedic Surgery: Yes Other/Comment: ex-lap, right elbow repair, left elbow rotator cuff repair 2016 - Anesthesia Hx Anesthesia: Yes Hx Anesthesia Reactions: Yes ("BLEEDING FROM AIRWAY USED") Hx Malignant Hyperthermia: No - Suicidal Assessment Feels Threatened In Home Enviroment: No Family/Social History - Physician Review Nursing Documentation Reviewed: Yes Family/Social History: No Known Family HX Smoking Status: Never Smoked Hx Alcohol Use: Yes (H/O) Hx Substance Use: No Hx Substance Use Treatment: No Allergies/Home Meds Allergies/Adverse Reactions: Allergies tape Adverse Reaction (Uncoded 02/05/17 11:01) REDNESS Home Medications: Home Meds Medication Instructions Recorded Confirmed Ascorbic Acid [Vitamin C] 1,000 mg PO QAM 09/13/11 02/05/17 Atorvastatin [Lipitor] 40 mg PO QAM 09/13/11 02/05/17 Natalizumab [Tysabri] 1 dose IV ONCE 09/13/11 02/05/17 Mefloquine [Lariam] 250 mg PO MON 01/20/15 02/05/17 Mirtazapine [Remeron] 15 mg PO HS 01/20/15 02/05/17 Esomeprazole Magnesium [Nexium] 40 mg PO DAILY 05/12/15 02/05/17 Montelukast [Singulair] 10 mg PO HS 05/12/15 02/05/17 [place]-3 Fatty Acids/Fish Oil 300 mg PO DAILY 05/12/15 02/05/17 [[place] 3 Fish Oil Softgel] Prasugrel [Effient] 10 mg PO DAILY 05/12/15 02/05/17 Temazepam [Restoril] 7.5 mg PO HS 05/12/15 02/05/17 Vitamin B Complex [Super B-50 1 tab PO DAILY 05/12/15 02/05/17 Complex] Lisinopril [Zestril] 5 mg PO DAILY 07/30/15 02/05/17 Tiotropium [Spiriva] 18 mcg NEB DAILY 07/30/15 02/05/17 Venlafaxine HCl [Venlafaxine HCl 75 mg PO DAILY 07/30/15 02/05/17 ER] buPROPion [Wellbutrin] 100 mg PO DAILY 07/30/15 02/05/17 Multivit-Min/FA/Lycopen/Lutein 1 tab PO DAILY 09/05/15 02/05/17 [Centrum Silver Tablet] Fluticasone Furoate [Arnuity 1 inh INH DAILY 03/13/16 02/05/17 Ellipta] Cholecalciferol [Vitamin D 1000 IU] 1 tab PO DAILY 03/17/16 02/05/17 Aspirin [Ecotrin] 324 mg PO DAILY 12/22/16 02/05/17 Oxycodone HCl/Acetaminophen 1 tab PO PRN PRN 02/05/17 02/05/17 [Endocet 325 mg-7.5 mg] Review of Systems - Physician Review All systems were reviewed & negative as marked: Yes - Review of Systems Constitutional: absent: Fatigue, Fevers, Night Sweats Eyes: absent: Vision Changes ENT: absent: Hearing Changes Respiratory: SOB, Cough, Wheezing. absent: Sputum Cardiovascular: absent: Chest Pain, Palpitations, Syncope Gastrointestinal: absent: Abdominal Pain, Nausea, Vomiting Genitourinary Male: absent: Dysuria, Frequency Musculoskeletal: absent: Arthralgias Skin: absent: Rash, Pruritis Neurological: absent: Headache, Dizziness, Focal Weakness Endocrine: absent: Diaphoresis Hemo/Lymphatic: absent: Adenopathy Psychiatric: absent: Anxiety, Depression Physical Exam Vital Signs Reviewed: Yes Vital Signs Temp Pulse Resp BP Pulse Ox 03/04/17 16:45 101 H 18 131/82 94 L 03/04/17 15:37 98.2 F 108 H 18 138/75 96 Temperature: Afebrile Blood Pressure: Normal Pulse: Tachycardic Respiratory Rate: Normal Appearance: Positive for: Well-Appearing, Non-Toxic, Uncomfortable Pain Distress: None Mental Status: Positive for: Alert and Oriented X 3 - Systems Exam Head: Present: Atraumatic, Normocephalic Pupils: Present: PERRL Extroacular Muscles: Present: EOMI Conjunctiva: Present: Normal Ears: Present: NORMAL TM, Normal Canal. No: Erythema Mouth: Present: Moist Mucous Membranes Pharnyx: No: ERYTHEMA, EXUDATE, TONSILS ENLARGED Neck: Present: Normal Range of Motion Respiratory/Chest: Present: Respiratory Distress (mild), Accessory Muscle Use, Wheezes (bilaterally), Decreased Breath Sounds, Rhonchi (bilaterally), Tachypneic. No: Rales, Retracting, Tender to Palpation Cardiovascular: Present: Regular Rate and Rhythm, Normal S1, S2, Tachycardic. No: Murmurs Abdomen: Present: Normal Bowel Sounds. No: Tenderness, Distention, Peritoneal Signs, Rebound, Guarding Back: Present: Normal Inspection Upper Extremity: Present: Normal Inspection. No: Cyanosis, Edema Lower Extremity: Present: Normal Inspection. No: Edema Neurological: Present: GCS=15, CN II-XII Intact, Speech Normal, Motor Func Grossly Intact Skin: Present: Warm, Dry, Normal Color. No: Rashes Psychiatric: Present: Alert, Oriented x 3, Normal Insight, Normal Concentration Medical Decision Making ED Course and Treatment: 03/04/17 15:41 Impression: 76 year old male, whose past medical history includes COPD, who presents to the emergency department sent here from PMD's office for Shortness of breath with mild intermittent, non-productive cough for about one week. Plan: -- EKG -- Chest X-ray -- Labs -- Duoneb and Solu-medrol -- Reassess and disposition Prior Visits: Notes and results from previous visits were reviewed. Patient was last seen on 02/05/17 for intermittent abdominal pain for 2 days. Patient was admitted to hospitalist care for further evaluation Progress Notes: 03/04/17 15:49 EKG shows normal sinus rhythm with frequent multifocal PVCs and a primary AV block with a right bundle branch block and Q waves inferiorly and no acute ST or T-wave changes 03/04/17 17:35 Chest X-ray: Creator : Naga Michael MD FINDINGS: LUNGS:No active pulmonary disease. PLEURA:No significant pleural effusion identified, no pneumothorax apparent. CARDIOVASCULAR:Moderate vascular congestion. OSSEOUS STRUCTURES:No significant abnormalities. VISUALIZED UPPER ABDOMEN:Normal. OTHER FINDINGS:None. IMPRESSION: Moderate vascular congestion - Lab Interpretations Lab Results: 03/04/17 16:03 03/04/17 16:03 Lab Results 03/04/17 16:03: Sodium 140, Potassium 4.0, Chloride 105, Carbon Dioxide 25, Anion Gap 15, BUN 10, Creatinine 0.9, Est GFR ( Amer) > 60, Est GFR (Non- Af Amer) > 60, Random Glucose 100, Calcium 9.2, Total Bilirubin 0.8, AST 36, ALT 36, Alkaline Phosphatase 109, Lactate Dehydrogenase 361, Total Creatine Kinase 50, Troponin I 0.07, NT-Pro-B Natriuret Pep 5490 H, Total Protein 6.8, Albumin 3.4, Globulin 3.3, Albumin/Globulin Ratio 1.0 L 03/04/17 16:03: PT 13.5 H, INR 1.18 H, APTT 33.5 03/04/17 16:03: WBC 9.5, RBC 3.96, Hgb 11.1 L, Hct 35.3 L, MCV 89.1, MCH 28.0, MCHC 31.4, RDW 14.2, Plt Count 329, MPV 9.0, Gran % 84.1 H, Lymph % (Auto) 9.6 L , [place] % (Auto) 5.7, Eos % (Auto) 0.4 L, Baso % (Auto) 0.2, Gran # 8.02 H, Lymph # 0.9 L, [place] # 0.5, Eos # 0.0, Baso # 0.02 I have reviewed the lab results: Yes - RAD Interpretation Radiology Orders: 03/04/17 15:36 CHEST PORTABLE [RAD] Stat chest 1 view shows increased markings con with CHF. No infiltrate or effusion. Remote Sensing Specialist: ED Physician - Medication Orders Current Medication Orders: Discontinued Medications Albuterol/Ipratropium (Duoneb 3 Mg/0.5 Mg (3 Ml) Ud) 3 ml IH ONCE STA Stop: 03/04/17 15:38 Last Admin: 03/04/17 16:12 Dose: Not Given Non-Admin Reason: Patient Refused Furosemide (Lasix) 40 mg IVP ONCE ONE Stop: 03/04/17 16:38 Last Admin: 03/04/17 16:45 Dose: 40 mg MAR Blood Pressure Document 03/04/17 16:45 GMD (Rec: 03/04/17 16:46 GMD [facility] [id number]) Blood Pressure Blood Pressure (100/60-150/90 mm Hg) 131/82 IVP Administration Document 03/04/17 16:45 GMD (Rec: 03/04/17 16:46 GMD [id number]) Charges for Administration # of IVP Administrations 1 Ipratropium [place] (Atrovent) 0.5 mg IH STAT STA Stop: 03/04/17 16:14 Last Admin: 03/04/17 16:20 Dose: 0.5 mg Levalbuterol HCl (Xopenex) 0.63 mg IH ONCE STA Stop: 03/04/17 16:13 Last Admin: 03/04/17 16:20 Dose: 0.63 mg Methylprednisolone (Solu-Medrol) 125 mg IVP STAT STA Stop: 03/04/17 15:36 Last Admin: 03/04/17 16:03 Dose: 125 mg IVP Administration Document 03/04/17 16:03 GMD (Rec: 03/04/17 16:03 GMD [facility] [id number]) Charges for Administration # of IVP Administrations 1 - Scribe Statement The provider has reviewed the documentation as recorded by the Val Yousif Provider Scribe Attestation: All medical record entries made by the Scribe were at my direction and personally dictated by me. I have reviewed the chart and agree that the record accurately reflects my personal performance of the history, physical exam, medical decision making, and the department course for this patient. I have also personally directed, reviewed, and agree with the discharge instructions and disposition. Disposition/Present on Arrival - Present on Arrival Any Indicators Present on Arrival: No History of DVT/PE: No History of Uncontrolled Diabetes: No Urinary Catheter: No History of Decub. Ulcer: No History Surgical Site Infection Following: None - Disposition Have Diagnosis and Disposition been Completed?: Yes Diagnosis: CHF (congestive heart failure), COPD (chronic obstructive pulmonary disease) Disposition: HOSPITALIZED Disposition Time: 16:40 Patient Plan: Observation, Telemetry Patient Problems: Current Active Problems Problem Status Onset CHF (congestive heart failure) Acute COPD (chronic obstructive pulmonary disease) Acute Condition: FAIR
[2017-03-04] MEDS: Albuterol-Ipratrop 3 mg / 0.5 (3 ml) UD IH STA ×2 (16:03→16:12)
[2017-03-04 16:09] LABS: BASO # 0.02 K/mm3 (0.0-2.0); BASO % 0.2 % (0.0-3.0); EOS % 0.4 % (1.5-5.0); GRAN # 8.02 (1.4-6.5); GRAN % 84.1 % (50.0-68.0); HEMOGLOBIN 11.1 g/dL (14.0-18.0); LYMPH # 0.9 (1.2-3.4); LYMPH % 9.6 % (22.0-35.0); MEAN CELL VOLUME 89.1 fl (80.0-105.0); MEAN CORPUSCULAR HGB CONC 31.4 g/dl (31.0-37.0); MONO # 0.5 (0.1-0.6); MONO % 5.7 % (1.0-6.0); RBC 3.96 10^6/uL (3.5-6.1); RED CELL DISTRIBUTION WIDTH 14.2 % (11.5-14.5); WHITE BLOOD COUNT 9.5 10^3/ul (4.5-11.0)
[2017-03-04] MEDS ORDERED: Levalbuterol 0.63 MG/3 ML Inhal Soln UD IH STA (16:12)
[2017-03-04] MEDS ORDERED: Ipratropium 0.02% Inhal Soln (0.5 mg/2.5 ml) UD IH STA (16:13)
--- NOTE | 2017-03-04 16:17 | RAD ---
HISTORY: sob COMPARISON: 01/2026 FINDINGS: LUNGS: No active pulmonary disease. PLEURA: No significant pleural effusion identified, no pneumothorax apparent. CARDIOVASCULAR: Moderate vascular congestion. OSSEOUS STRUCTURES: No significant abnormalities. VISUALIZED UPPER ABDOMEN: Normal. OTHER FINDINGS: None. IMPRESSION: Moderate vascular congestion
[2017-03-04 16:30] LABS: B-TYPE NATRIURETIC PEPTIDE 5490 pg/mL (0-450); TROPONIN I 0.07 ng/mL
[2017-03-04 16:32] LABS: ALBUMIN 3.4 g/dL (3.0-4.8); ALT/SGPT 36 U/L (7-56); AST/SGOT 36 U/L (17-59); BLOOD UREA NITROGEN 10 mg/dL (7-21); CALCIUM 9.2 mg/dL (8.4-10.5); GFR AFRICAN-AMERICAN > 60; GFR NON-AFRICAN AMERICAN > 60
[2017-03-04 16:44] LABS: INR 1.18 (0.93-1.08); PARTIAL THROMBOPLASTIN TIME 33.5 Seconds (25.1-36.5); PROTHROMBIN TIME 13.5 SECONDS (9.4-12.5)
--- NOTE | 2017-03-04 19:29 | CARD ---
APPROVED REPORT EKG Measurement Heart [id number] 200P59 [id number] <Conclusion> Sinus tachycardia with frequent and polymorphic PVCs Left axis deviation Right bundle branch block Inferior infarct, age undetermined Abnormal ECG
[2017-03-04] MEDS ORDERED: Albuterol-Ipratrop 3 mg / 0.5 (3 ml) UD IH SCH (20:15)
[2017-03-05] MEDS: Budesonide 0.5 mg/2 ml Inhal Susp UD IH SCH ×2 (08:38→19:34)
--- NOTE | 2017-03-05 08:59 | CON ---
DATE: 03/05/2017 PULMONARY CONSULTATION REASON FOR CONSULTATION: Chronic obstructive pulmonary disease. REFERRING PHYSICIAN: Ap Osborne MD HISTORY OF PRESENT ILLNESS: The patient is a 76-year-old male, with past medical history significant for chronic obstructive pulmonary disease, coronary artery disease, multiple sclerosis, who presents to [facility] with a 1-week history of increasing shortness of breath at rest, dyspnea on exertion, cough, and minimal sputum production. There is no history of chest pain, coughing up of blood, or chest pain - made worse with deep respirations. There is no history of temperatures, chills or infectious exposure. There is no history of night sweats, weight loss or appetite change prior to the above events. No history of calf pains. No history of syncope or diaphoresis. No history of recent travel or trauma. REVIEW OF SYSTEMS: No history of nausea, vomiting, diarrhea. No acute urinary symptoms. No new neurologic or musculoskeletal complaints. Rest of the review of systems negative. ALLERGIES: NO KNOWN DEMONSTRABLE ALLERGIES. SOCIAL HISTORY: Positive for tobacco and negative for alcohol. FAMILY HISTORY: No inheritable diseases. HOME MEDICATIONS: Include Wellbutrin, tamoxifen, Effient, Zestril, Synthroid, Lipitor, Spiriva, Restoril and Endocet, Singulair, Remeron, Xopenex, Arnuity Ellipta, Nexium, Ecotrin and vitamins. PHYSICAL EXAMINATION: GENERAL: The patient appears comfortable at rest. He is not short of breath at rest. He is not using accessory muscles for breathing. VITAL SIGNS: (Last noted in the computer): Temperature is 99.8, pulse this morning is 88, respiratory rate 18/20, blood pressure 139/79. Oxygen saturation on nasal cannula is 92-95%. HEENT: Normocephalic, atraumatic. NECK: No JVD. CARDIOVASCULAR: Positive S1, S2. Questionable S3 gallop. LUNGS: Minimal crackles at the bases. Minimal bilateral rhonchi. No wheezing. EXTREMITIES: No clubbing, cyanosis or edema. Calves are nontender to palpation. GI: Abdomen is soft, nontender and nondistended. Bowel sounds are positive. SKIN: No acute rash. NEUROLOGIC: Exam limited at the present time. PERTINENT LABORATORY DATA: Chest x-ray was done yesterday and reviewed. There is a [id number] increase in pulmonary vascular congestion. CBC: White count 9.5, hemoglobin 11.1, hematocrit 35.3, platelets of 329,000. Complete metabolic profile: Troponin 0.07. B-type natriuretic peptide 5490. Rest of the metabolic profiles within normal limits. IMPRESSION: 1. Acute bronchitis. 2. Chronic obstructive pulmonary disease. 3. Congestive heart failure. 4. Coronary artery disease. 5. Multiple sclerosis. PLAN: The patient presents to [facility] with a 1-week history of worsening pulmonary symptoms. I did review the chest x-ray as above. The chest x-ray does show a mild to moderate increase in pulmonary vascular congestion. The patient was given Lasix in the emergency room. Cardiology evaluation with Dr. Kumari has been ordered. On physical exam, there is mild bronchospasm noted. I will continue with the current nebulizer treatments and low-dose intravenous steroids for now. I will also add inhaled Pulmicort this morning. Lastly, due to his above age and diagnoses, I will also add oral antibiotic therapy. The patient does state to feeling much better this morning and is clinically improved. Additional pulmonary intervention will be based on the clinical status of the patient. I will discuss the above with Dr. Osborne. Thank you very much for this pulmonary consultation. Amanuel Riggins MD MTDEloy
[2017-03-05] MEDS: Levothyroxine 175 MCG TAB PO SCH (09:35)
--- NOTE | 2017-03-05 09:35 | HP ---
HISTORY OF PRESENT ILLNESS: This is a 76-year-old male who is coming into the hospital because of shortness of breath. The patient has a past medical history of COPD. He says he had been having nonproductive cough for about a week. He does use nebulizer. He has not been on steroids in the last 6 months. He denies any chest pain. He was a former smoker, but quit 33 years ago. He says he was given diuretics in the ER and that helped his symptoms. He was also placed on nebulizer treatments. He was found to have a chest x-ray that showed moderate vascular congestion. The patient has no complaints of any headaches. No dizziness. No nausea. No dysuria frequency. No nocturia. REVIEW OF SYSTEMS: All other review of symptoms are within normal limits except as mentioned. HOME MEDICATIONS: Has been reviewed on the [facility]. PAST MEDICAL HISTORY: BPH, hypertension, multiple sclerosis, COPD, GERD, [place] esophagus. PAST SURGICAL HISTORY: Cardiac cath, appendectomy, rotator cuff repair, exploratory laparotomy. SOCIAL HISTORY: He was a former smoker, but quit 33 years ago. FAMILY HISTORY: Noncontributory. ALLERGIES: NO KNOW DRUG ALLERGIES. PHYSICAL EXAMINATION: VITAL SIGNS: Temperature is 99.8, pulse of 104, blood pressure 139/79, respirations 20, O2 saturation 92%. Height is 5 feet 6 inches, weight is 180 pounds, BMI is 29.1. GENERAL: The patient lying in bed, uncomfortable, and in no acute distress. HEENT: Atraumatic and normocephalic. Anicteric sclerae. Moist mucosa. [place] conjunctivae. No oral lesions. NECK: No JVD, anterior and posterior adenopathy, thyromegaly, or bruits. CARDIOVASCULAR: S1 and S2 regular. No murmur, rubs, or gallop. LUNGS: Clear to auscultation bilaterally. No wheezes, rales, or rhonchi. ABDOMEN: Bowel sounds are positive. Soft, nontender and nondistended. No hepatosplenomegaly. No rebound. No guarding. EXTREMITIES: No cyanosis, clubbing, or edema. NEUROLOGIC: No facial asymmetry. Tongue is midline. No uvula deviation. Power is 5/5 upper extremity and lower extremity. Sensation intact in upper extremity and lower extremity. PSYCHIATRIC: He is awake, alert and oriented x3. No anxiety or depression. He has normal affect. GENITOURINARY: No CVA tenderness. VASCULAR: 2+ pulses in the carotid pulses and pedal pulses. SKIN: No erythema or nodules. SPINE: Shows normal curvature. LABORATORY DATA: White count 9.5, hemoglobin 11.3, platelet count 329. INR is 1.1. Chemistry shows sodium 140, potassium 4.0, creatinine 0.9, AST is 36, ALT is 36. Troponin is 0.07. ProBNP is 5490. Chest x-ray done shows pulmonary vascular congestion. EKG done shows sinus tachycardia with heart rate of 107, left axis deviation, right bundle-branch block. ASSESSMENT: 1. Acute congestive heart failure exacerbation, unknown type. 2. Hypothyroidism. 3. Coronary artery disease. 4. Osteoarthritis. 5. Gastroesophageal reflux disease. 6. Benign prostatic hypertrophy. 7. Insomnia. PLAN: The patient is currently admitted to the hospital. His shortness of breath has improved. He had an elevated BNP. He had a chest x-ray that was abnormal, showing pulmonary vascular congestion. The patient was given nebulizer treatments. He is going to continue with his Effexor. He is on Effient. The patient was placed on Levaquin for antibiotics by Dr. Riggins who was consulted. He is also going to be seen by Cardiology with Dr. Kumari. He is on Lipitor for dyslipidemia. The patient is receiving his Wellbutrin. He is on Zestril for his hypertension. He is on his Remeron, this will be continued. He takes Restoril, but this is not formulary. He states he has been taking sleeping medications for many years. I will place him on Xanax. I will get physical therapy to evaluate the patient as well. The patient will need further evaluation by Cardiology. We will also get physical therapy to see the patient. We will repeat his blood work tomorrow. Ap Osborne MD
[2017-03-05] MEDS: levoFLOXacin 500 MG TAB PO SCH (09:36)
[2017-03-05] MEDS: Venlafaxine 75 mg ER Cap PO SCH (09:36)
[2017-03-05] MEDS ORDERED: MethylPREDNISolone 40 mg Vial IVP SCH (10:00)
[2017-03-05] MEDS: Levalbuterol 0.63 MG/3 ML Inhal Soln UD IH SCH ×2 (13:49→19:35)
--- NOTE | 2017-03-05 17:24 | CARD ---
APPROVED REPORT EKG Measurement Heart [id number] <Conclusion> Atrial fibrillation with rapid ventricular response with premature ventricular or aberrantly conducted complexes Right bundle branch block Inferior infarct, age undetermined Abnormal ECG
--- NOTE | 2017-03-05 18:46 | CON ---
DATE: 03/05/2017 HISTORY OF PRESENT ILLNESS: This is a 76-year-old man admitted yesterday after visiting Dr. Castaneda's office with increased shortness of breath, congestion, cough, sputum production, symptoms have been present for several months but getting worse. He was seen in the Emergency Room. He was given IV Lasix and pulmonary treatments. This morning, he feels better. There was still some shortness of breath, but he is much improved. There was some edema as well and this has improved. There was no chest pain, syncope, palpitation, fever, chills, rigor, sweats, hemoptysis, abdominal pain, nausea, vomiting, diarrhea, constipation, or melena. PAST MEDICAL HISTORY: His past medical history is complex. He has COPD and pulmonary fibrosis. He is a former smoker. He has coronary artery disease and underwent stents in the remote past. He has not had recent Cardiology followup. His last stress test was approximately 4 or 5 years ago, he believes. He was admitted in 01/2017 with small bowel obstruction. He has a history of hypertension, hypothyroidism, BPH, GERD, Barrette's esophagus, and diminished auditory acuity. There is a history of remote myocardial infarction, but no diabetes, stroke, TIA, or gout. MEDICATIONS AT THE TIME OF ADMISSION: Include Arnuity, multivitamins, bisacodyl, aspirin, Effient, Lariam, Lipitor, MiraLax, Nexium, Remeron, Restoril, Singulair, Spiriva, vitamin B, lisinopril, Xopenex, Wellbutrin, vitamin D, vitamin C, and venlafaxine. ALLERGIES: NO MEDICATION ALLERGIES ARE REPORTED. SOCIAL HISTORY: He lives at home. He does not smoke cigarettes any longer. He does not drink alcohol significantly. He is ambulatory. FAMILY HISTORY: Noncontributory. REVIEW OF SYSTEMS: A 10-point review of systems is otherwise unremarkable except as noted above. PHYSICAL EXAMINATION GENERAL: He is a well-developed male, sitting on his bed, in telemetry, in no acute distress. VITAL SIGNS: He is in sinus rhythm, sinus tachycardia. He is afebrile, blood pressure 132/82, respirations 20, O2 sat 92%. HEENT: Reveals no neck vein distention, thyromegaly or carotid bruits. Mucous membranes are moist. Conjunctivae are pink. NECK: Supple. LUNGS: Lung zimmerman scattered rhonchi, soft expiratory wheezes. HEART: Reveals the heart sounds to be obscured with distant first and second heart sounds. PMI is not palpable. ABDOMEN: Soft. Bowel sounds are present. No mass, organomegaly, tenderness, rebound, or guarding. EXTREMITIES: Reveals mild pedal edema. NEUROLOGIC: He is awake, alert, and oriented with diminished hearing. PSYCHIATRIC: Normalized mood and affect. SKIN: Warm and dry. No rash or cellulitis. LABORATORY AND IMAGING: EKG demonstrates regular sinus rhythm with frequent PVCs, inferior wall myocardial infarction, right bundle branch block, nonspecific ST-wave changes, basically unchanged from a prior EKG except for the PVCs which are new. Chest x-ray shows moderate vascular congestion. White count normal, hemoglobin 11.1, hematocrit 35.3, platelet count normal. PT/INR 13.5 and 1.18. PTT 33.5. Chemistries unremarkable. LFTs unremarkable. CK 50, troponin 0.07. BNP 5490. IMPRESSION: Tonio Dueñas is a 76-year-old man with chronic obstructive pulmonary disease, pulmonary fibrosis admitted with decompensated chronic obstructive pulmonary disease with congestion, possibly an element of congestive heart failure. He has known coronary artery disease with remote coronary stents but no recent Cardiology followup. He has a history of remote myocardial infarction. There was inferior wall myocardial infarction seen on his current EKG. He has frequent PVCs. PLAN: His symptoms have improved with pulmonary treatments and IV Lasix. He is getting Solu-Medrol as well as Xopenex, ipratropium, and albuterol. We will monitor I's and O's. Check stool for occult blood. I will get an echocardiogram. We will continue aspirin, Effient, Lipitor, and lisinopril. He is getting antibiotics. He is being followed by Dr. Riggins. He could be out of bed to chair as tolerated. Once his respiratory status has improved, we may consider nuclear stress testing as an inpatient or possibly on an outpatient basis. I will follow along with you. I will make additional recommendations based on his clinical course. Sarbjit Kumari MD [facility] # [id number] [place]
[2017-03-06 07:10] LABS: HEMOGLOBIN 10.7 g/dL (14.0-18.0); MEAN CELL VOLUME 87.2 fl (80.0-105.0); MEAN CORPUSCULAR HEMOGLOBIN 27.4 pg (25.0-35.0); MEAN CORPUSCULAR HGB CONC 31.5 g/dl (31.0-37.0); MEAN PLATELET VOLUME 9.1 fl (7.0-11.0); RBC 3.9 10^6/uL (3.5-6.1); RED CELL DISTRIBUTION WIDTH 14.3 % (11.5-14.5); WHITE BLOOD COUNT 8.8 10^3/ul (4.5-11.0)
[2017-03-06 07:11] LABS: ALB/GLOB RATIO 1.1 (1.1-1.8); ALBUMIN 3.2 g/dL (3.0-4.8); ALT/SGPT 36 U/L (7-56); AST/SGOT 40 U/L (17-59); BLOOD UREA NITROGEN 22 mg/dL (7-21); CALCIUM 9.2 mg/dL (8.4-10.5); GFR AFRICAN-AMERICAN > 60; GFR NON-AFRICAN AMERICAN 59; HDL CHOLESTEROL 38 mg/dL (29-60)
[2017-03-06 07:21] LABS: LDL CHOLESTEROL 90 mg/dL (0-129)
[2017-03-06] MEDS: Budesonide 0.5 mg/2 ml Inhal Susp UD IH SCH ×2 (07:43→19:40)
[2017-03-06] MEDS: Levalbuterol 0.63 MG/3 ML Inhal Soln UD IH SCH ×3 (07:44→19:40)
--- NOTE | 2017-03-06 09:16 | PN ---
DATE: 03/06/2017 PULMONARY NOTE SUBJECTIVE: The patient appears very comfortable this morning. He is not short of breath at rest. PHYSICAL EXAMINATION: VITAL SIGNS: Last temperature recorded is 97.9, pulse this morning approximately 88, respiratory rate 18, blood pressure 112/72. Oxygen saturation on nasal cannula is 94%. HEENT: Normocephalic, atraumatic. NECK: No JVD. CARDIOVASCULAR: Positive S1, S2. Questionable S3 gallop. LUNGS: Minimal crackles at the bases. Very minimal/less rhonchi. No wheezing. EXTREMITIES: No clubbing, cyanosis or edema. Calves are nontender to palpation. GI: Abdomen is soft, nontender and nondistended. Bowel sounds are positive. SKIN: No acute rash. NEUROLOGIC: Exam limited at the present time. IMPRESSION: 1. Acute bronchitis. 2. Chronic obstructive pulmonary disease. 3. Congestive heart failure. 4. Coronary artery disease. 5. Multiple sclerosis. PLAN: The patient appears very comfortable this morning. He is not short of breath at rest. He does state to feeling much, much better overall. On physical exam, his bronchospasm continues to resolve. In addition, the alveolar-arterial gradient is also much less. I will continue with the current nebulizer treatments and inhaled steroids. I will also change to oral steroids this morning. Lastly, I will continue with the oral antibiotic therapy for now. There are no temperatures noted. There is no leukocytosis. I would continue with the treatment for congestive heart failure as per Cardiology. Input by Dr. Kumari is noted. Clinical status of the patient is definitely improved. The patient is advised to be out of bed as much as possible. Amanuel Riggins MD [place]
--- NOTE | 2017-03-06 09:17 | PN ---
DATE: SUBJECTIVE: The patient has no complains of any chest pain, any shortness of breath. He says his breathing is improving. PHYSICAL EXAMINATION : VITAL SIGNS: Temperature is 97.9, pulse of 103, blood pressure 112/72, respirations 20. GENERAL: The patient is lying in bed, flat, comfortable. HEENT: No oral lesion. Anicteric sclerae. Moist mucosa. NECK: No JVD, adenopathy, or thyromegaly. CARDIOVASCULAR: S1 and S2, regular. No murmurs, rubs, or gallops. LUNGS: Clear to auscultation bilaterally. No wheeze, rales, or rhonchi. ABDOMEN: Bowel sounds are positive, soft, nontender and nondistended. EXTREMITIES: No cyanosis, clubbing or edema. ASSESSMENT: 1. Acute chronic obstructive pulmonary disease exacerbation. 2. Coronary artery disease with stent. 3. Hypothyroidism. 4. Acute congestive heart failure, unknown type. 5. Osteoarthritis. 6. Gastroesophageal reflux disease. 7. Benign prostatic hypertrophy. 8. Insomnia. The patient says he is feeling better. He is diuresing. He is on aspirin. The patient is to continue with his venlafaxine. He is on Lasix daily. The patient is on Lipitor for dyslipidemia. He is on Solu-Medrol for his COPD. The patient is on Xanax at night to help sleep. He is on Zestril for his hypertension. Echo has been ordered to evaluate the patient's ejection fraction and to classify the type of CHF he has. He is on a heart healthy diet. He has been followed by Cardiology and Pulmonary. I appreciate their input. I did review their notes. Ap Osborne MD
[2017-03-06] MEDS: Levothyroxine 175 MCG TAB PO SCH (10:35)
[2017-03-06] MEDS: levoFLOXacin 500 MG TAB PO SCH (10:37)
[2017-03-06] MEDS: Venlafaxine 75 mg ER Cap PO SCH (10:37)
--- NOTE | 2017-03-06 12:19 | PN ---
DATE: 03/06/2017 SUBJECTIVE: The patient is seen lying in bed on 5-R. He is currently comfortable. He states that his dyspnea is improved. His current medications include aspirin, Effexor 75 mg daily, Lasix 40 mg daily, Levaquin, Lipitor 40 mg daily, prednisone 40 mg daily Pulmicort inhaler, Remeron, Synthroid 175 mcg daily, Wellbutrin 100 g daily, Xanax 0.5 mg at bedtime, Xopenex and Zestril 5 mg daily. OBJECTIVE: GENERAL: He is an elderly man who appears comfortable at rest. VITAL SIGNS: His blood pressure is 106/62 with a pulse of 90 and respirations are 16. He is afebrile. HEENT: No JVD. CHEST: Bilateral scattered rhonchi noted. Faint rales noted at the left base. HEART: PMI displaced laterally with systolic murmur at the left sternal border. GASTROINTESTINAL: The abdomen is soft and nontender with normoactive bowel sounds. EXTREMITIES: Trace ankle edema. DIAGNOSTIC DATA: Potassium is 3.7 and BUN and creatinine of 22 and 1.2. White count is 8.8, hemoglobin and hematocrit of 10.7 and 34.0 with platelet count of 371,000. IMPRESSION: 1. Decompensated chronic obstructive pulmonary disease with pulmonary fibrosis. 2. Decompensating congestive heart failure. 3. Coronary disease status post remote percutaneous coronary intervention. RECOMMENDATIONS: Current treatment should continue. An echocardiogram has been ordered and is pending. Eventual follow up stress test would be appropriate. We will continue to follow and make further recommendations as appropriate. Al Rodriguez MD
[2017-03-07] MEDS: Budesonide 0.5 mg/2 ml Inhal Susp UD IH SCH (07:50)
[2017-03-07] MEDS: Levalbuterol 0.63 MG/3 ML Inhal Soln UD IH SCH ×2 (07:50→13:45)
--- NOTE | 2017-03-07 08:20 | CP.PCM.PN ---
Subjective - Date & Time of Evaluation Date of Evaluation: 03/07/17 Time of Evaluation: 07:00 - Subjective Subjective: Stable on 5R. He feels better. No chest pain. Breathing better. V/S noted. PE: Lungs: rhonchi Cor.: S1S2 Abd.: soft Ext.: no edema Neuro.: alert I/O= 900/850 recorded Labs 03/06: noted Echo: Will review. prelim: Mild LVD Objective - Vital Signs/Intake and Output Vital Signs (last 24 hours): Temp Pulse Resp BP Pulse Ox 97.6 F 68 18 111/61 94 L 03/07/17 00:00 03/07/17 00:00 03/07/17 00:00 03/07/17 00:00 03/07/17 00:00 Intake and Output: 03/07/17 03/07/17 06:59 18:59 Intake Total 900 Output Total 850 Balance 50 - Medications Medications: Current Medications Alprazolam (Xanax) 0.5 mg PO HS [facility] PRN Reason: Protocol Last Admin: 03/06/17 21:29 Dose: 0.5 mg Aspirin (Aspirin Chewable) 81 mg PO DAILY [facility] Last Admin: 03/06/17 10:36 Dose: 81 mg Atorvastatin Calcium (Lipitor) 40 mg PO QAM [facility] Last Admin: 03/06/17 10:36 Dose: 40 mg Budesonide (Pulmicort Respules) 0.5 mg IH [id number] [facility] Last Admin: 03/07/17 07:50 Dose: 0.5 mg Bupropion HCl (Wellbutrin) 100 mg PO DAILY [facility] Last Admin: 03/06/17 10:36 Dose: 100 mg Furosemide (Lasix) 40 mg IVP DAILY [facility] Last Admin: 03/06/17 10:37 Dose: 40 mg Levalbuterol HCl (Xopenex) 0.63 mg IH TID [facility] Last Admin: 03/07/17 07:50 Dose: 0.63 mg Levofloxacin (Levaquin) 500 mg PO DAILY [facility] PRN Reason: Protocol Last Admin: 03/06/17 10:37 Dose: 500 mg Levothyroxine Sodium (Synthroid) 175 mcg PO DAILY [facility] Last Admin: 03/06/17 10:35 Dose: 175 mcg Lisinopril (Zestril) 5 mg PO DAILY [facility] Last Admin: 03/06/17 10:36 Dose: 5 mg Mirtazapine (Remeron) 15 mg PO HS [facility] Last Admin: 03/06/17 21:29 Dose: 15 mg Prasugrel (Effient) 10 mg PO DAILY [facility] Last Admin: 03/06/17 10:36 Dose: 10 mg Prednisone (Prednisone Tab) 40 mg PO DAILY [facility] Last Admin: 03/06/17 10:37 Dose: 40 mg Venlafaxine HCl (Effexor Xr) 75 mg PO DAILY [facility] Last Admin: 03/06/17 10:37 Dose: 75 mg - Labs Labs: 03/06/17 06:35 03/06/17 06:35 PT 13.5 SECONDS (9.4-12.5) H 03/04/17 16:03 INR 1.18 (0.93-1.08) H 03/04/17 16:03 APTT 33.5 Seconds (25.1-36.5) 03/04/17 16:03 Assessment and Plan - Assessment and Plan (Free Text) Assessment: Dyspnea/Cough Severe COPD/Pulmonary Fibrosis/Former Smoker CHF CAD/Remote PCI/CT/LVD HBP Hypothyroidism SBO BPH GERD Amezcua's Esophagus Diminished Hearing Plan: As per pulmonary and Dr. Osborne IV > PO Lasix 03/08 OOB as henry
[2017-03-07 08:44] VITALS: BP 110/70; PULSE 95; RESP 20; TEMP 98.5; O2SAT 95
--- NOTE | 2017-03-07 09:13 | PN ---
DATE: 03/07/2017 PULMONARY NOTE SUBJECTIVE: The patient appears very comfortable this morning. He is not short of breath at rest. PHYSICAL EXAMINATION: VITAL SIGNS: Temperature is 97.6, pulse 68, respirations 18, blood pressure 111/61. Oxygen saturation on room air is 94-97%. HEENT: Normocephalic, atraumatic. NECK: No JVD. CARDIOVASCULAR: Positive S1, S2. Questionable S3 gallop. LUNGS: Very minimal crackles at the bases. No rhonchi or wheezing this morning. EXTREMITIES: No clubbing, cyanosis or edema. Calves are nontender to palpation. GI: Abdomen is soft, nontender and nondistended. Bowel sounds are positive. SKIN: No acute rash. NEUROLOGIC: Exam limited at the present time. IMPRESSION: 1. Acute bronchitis. 2. Chronic obstructive pulmonary disease. 3. Congestive heart failure. 4. Coronary artery disease. 5. Multiple sclerosis. PLAN: The patient appears very comfortable this morning. He is not short of breath at rest. He does state to feeling much better overall. On physical exam, his bronchospasm continues to resolve. In addition, the oxygen saturation on room air is now 94-97%. I will continue with the current nebulizer treatments and oral steroids (changed yesterday) for now. I would continue with the Cardiology evaluation and workup. Input by Dr. Rodriguez is noted. Clinical status of the patient is significantly improved. I will discuss the above with Dr. Osborne. Amanuel Riggins MD MTDD
--- NOTE | 2017-03-07 10:13 | CARD ---
APPROVED REPORT EXAM: Two-dimensional and M-mode echocardiogram with Doppler and color Doppler. Other Information Quality : AverageRhythm : INDICATION Dyspnea Congestive Heart Failure COPD 2D DIMENSIONS Left Atrium (2D)4.2 (1.6-4.0cm)IVSd1.3 (0.7-1.1cm) LVDd5.1 (3.9-5.9cm)PWd1.0 (0.7-1.1cm) M-Mode DIMENSIONS Aortic Root3.10 (2.2-3.7cm)Aortic Cusp Exc.1.60 (1.5-2.0cm) Aortic Valve AoV Peak Nnondtuo140.0cm/s Mitral Valve E/A ratio0.0 TDI E/Lateral E'0.0E/Medial E'0.0 Pulmonary Valve PV Peak Spfabazj66.4cm/sPV Peak Grad.2mmHg Tricuspid Valve TR Peak [id number] [id number] Peak Gr.35mmHg [id number] LEFT VENTRICLE The left ventricle is normal size. There is normal left ventricular wall thickness. Left ventricle systolic function is mildly impaired. The Ejection Fraction is 45-50%. There is mild global hypokinesis. RIGHT VENTRICLE The right ventricle is normal size. ATRIA The left atrium is mildly dilated. The right atrium size is normal. The interatrial septum is intact with no evidence for an atrial septal defect. AORTIC VALVE The aortic valve is normal in structure. MITRAL VALVE The mitral valve is mildly thickened but opens well. Mitral regurgitation is mild. TRICUSPID VALVE The tricuspid valve is normal in structure. There is mild tricuspid regurgitation. There is mild-moderate pulmonary hypertension. GREAT VESSELS The aortic root is normal in size. PERICARDIAL EFFUSION There is no pericardial effusion. <Conclusion> The left ventricle is normal size. There is normal left ventricular wall thickness. Left ventricle systolic function is mildly impaired. The Ejection Fraction is 45-50%. There is mild global hypokinesis. Mitral regurgitation is mild. There is mild tricuspid regurgitation. There is mild-moderate pulmonary hypertension.
[2017-03-07] MEDS: levoFLOXacin 500 MG TAB PO SCH (10:27)
[2017-03-07] MEDS: Levothyroxine 175 MCG TAB PO SCH (10:28)
[2017-03-07] MEDS: Venlafaxine 75 mg ER Cap PO SCH (10:28)
--- NOTE | 2017-03-08 08:35 | DS ---
HISTORY OF PRESENT ILLNESS: This is a 76-year-old male who came into the hospital with shortness of breath. The patient was found to have an elevated BNP. He had a chest x-ray that showed vascular congestion. to also have COPD exacerbation. He was placed on nebulizer treatment. He had improvement of his symptoms after he was given Lasix as well. He says he is breathing better. He has no complaints of any chest pain, no shortness of breath, no nausea, no vomiting. PHYSICAL EXAMINATION: VITAL SIGNS: Temperature is 97.6, pulse is 68, blood pressure is 111/61, respirations are 18, and O2 saturations are 94%. GENERAL: The patient is lying in bed, flat, comfortable. HEENT: No oral lesion. Anicteric sclerae. Moist mucosa. NECK: No JVD, adenopathy, or thyromegaly. CARDIOVASCULAR: S1 and S2, regular. No murmurs, rubs, or gallops. LUNGS: Clear to auscultation bilaterally. No wheeze, rales, or rhonchi. ABDOMEN: Bowel sounds are positive, soft, nontender and nondistended. EXTREMITIES: No cyanosis, clubbing or edema. ASSESSMENT: 1. Acute chronic obstructive pulmonary disease, exacerbation. 2. Acute congestive heart failure secondary to systolic dysfunction. 3. Coronary artery disease. 4. Hypothyroidism. 5. Osteoarthritis. 6. Gastroesophageal reflux disease. 7. Benign prostatic hypertrophy. 8. Insomnia. PLAN: The patient is going to continue on aspirin. He is on Levaquin for antibiotics. He is on Lasix daily. The patient is on Lipitor for dyslipidemia. He is on prednisone daily. He is on Synthroid for hypothyroidism. He is on lisinopril for his hypertension. He is on a heart-healthy diet. Condition is stable. Activity is increased as tolerated. Ap Osborne MD
== END 2017-03-07 13:51 | disposition home or self-care (01) | DRG 190 ==
LOC: ED 15:16 → ERH 17:14 → OBSVTOIN 20:21 → ERH 21:06 → 5RNO 21:53
PROVIDERS: ADMIT Internal Medicine Nephrology; ATTEND Internal Medicine Nephrology
DX: J44.1 Chronic obstructive pulmonary disease with (acute) exacerbation (principal); I50.21 Acute systolic (congestive) heart failure; I11.0 Hypertensive heart disease with heart failure; G35 Multiple sclerosis; J20.9 Acute bronchitis, unspecified; J44.0 Chronic obstructive pulmonary disease with (acute) lower respiratory infection; M19.90 Unspecified osteoarthritis, unspecified site; J84.10 Pulmonary fibrosis, unspecified; I49.3 Ventricular premature depolarization; K21.9 Gastro-esophageal reflux disease without esophagitis; I25.10 Atherosclerotic heart disease of native coronary artery without angina pectoris; E03.9 Hypothyroidism, unspecified; N40.0 Benign prostatic hyperplasia without lower urinary tract symptoms; G47.00 Insomnia, unspecified; E78.5 Hyperlipidemia, unspecified; K22.70 Barrett's esophagus without dysplasia; Z87.891 Personal history of nicotine dependence; Z95.5 Presence of coronary angioplasty implant and graft; I25.2 Old myocardial infarction

== ENCOUNTER 2017-03-25 11:14 | Day surgery (SDC) | payer MEDICARE ==
[2017-03-22 07:52] VITALS: BMI 28.5
[2017-03-25] MEDS ORDERED: Propofol 10 mg/ml Inj (20 ML) ONE (11:58)
[2017-03-25] MEDS ORDERED: Midazolam 2 MG/2 ML VIAL ONE (11:58)
--- NOTE | 2017-03-25 12:22 | CARD ---
APPROVED REPORT EKG Measurement Heart [id number] ID [id number] <Conclusion> Sinus rhythm with 1st degree AV block Left axis deviation/LAHB Right bundle branch block Inferior infarct, age undetermined Compared to prior ECG, AF no longer present
[2017-03-25] MEDS ORDERED: Gadodiamide 287 MG/ML VIAL (15ML) IV ONE (12:48)
[2017-03-25] MEDS ORDERED: Lactated Ringer's 1,000 ML IV SCH (14:45)
[2017-03-25 14:55] VITALS: TEMP 97.8
[2017-03-25 15:49] VITALS: BP 115/87; PULSE 87; RESP 20; O2SAT 92
--- NOTE | 2017-03-25 16:47 | MRI ---
PROCEDURE: MR CERVICAL SPINE WITH AND WITHOUT CONTRAST HISTORY: INCREASING WEAKNESS/HX MS COMPARISON: Comparison is made with previous study dated 03/16/2016 TECHNIQUE: Multiecho multiplanar sequences were performed through the cervical spine with and without the use of intravenous contrast. FINDINGS: Normal lordotic curvature. Craniocervical junction unremarkable. Vertebral body heights preserved. No marrow signal abnormality. Normal cervical cord. No paraspinal abnormality. No abnormal enhancement C2-3: There is a small osteophyte disc bulge complex without evidence of significant spinal or neural foraminal narrowing. C3-4: There is a small to moderate size osteophyte disc protrusion associated with posterior ligament and facet joint hypertrophy which resulting in mild spinal stenosis. C4-5: No disc herniation, spinal canal stenosis or neural foraminal narrowing. C5-C6: There is a small disc protrusion associated with mild posterior ligament hypertrophy without evidence of significant spinal or neural foraminal narrowing. C6-C7: Small disc herniation seen without evidence of significant spinal or neural foraminal narrowing. C7-T1: Small osteophyte disc bulge complex without evidence of significant spinal or neural foraminal narrowing. OTHER FINDINGS: None. IMPRESSION: No evidence of abnormal signal or enhancement at the cervical cord. Re- demonstration of multilevel osteophyte disc bulge complex associated with posterior ligament hypertrophy and resulting in mild spinal stenosis. Moderate endplate and disc degenerative changes more prominent at C6-C7.
--- NOTE | 2017-03-26 14:00 | MRI ---
PROCEDURE: MRI BRAIN WITH AND WITHOUT CONTRAST HISTORY: Increasingly weakness COMPARISON: 03/09/2015 TECHNIQUE: Multiplanar, multisequence MR images of the brain were obtained with and without intravenous contrast enhancement. 15 mL gadolinium was injected intravenously. FINDINGS: HEMORRHAGE: None DWI: No evidence of an acute or early subacute infarction. BRAIN PARENCHYMA: There are multifocal scattered T2/FLAIR hyperintense lesions in the subcortical, deep and periventricular white matter and confluent T2/FLAIR hyperintensities in the periventricular white matter. There is also ill-defined T2/FLAIR hyperintense signal in the bart. There is no, mass effect or abnormal extra-axial fluid collection. The midline sagittal structures are normal. ENHANCEMENT: No abnormal intracranial enhancement. VENTRICLES: There is mild age-related global parenchymal volume loss and proportionate enlargement of the ventricles and cortical sulci. . CRANIUM: Unremarkable. ORBITS: Grossly unremarkable. PARANASAL SINUSES/MASTOIDS: There is mild mucosal thickening in the paranasal sinuses. The mastoid air cells are clear. VASCULAR SYSTEM: There are normal signal voids in the larger intracranial arteries. OTHER FINDINGS: None . IMPRESSION: 1. Little interval change in multifocal spot subcortical, deep and periventricular white matter changes are strictly nonspecific but statistically in this age group most compatible with severe chronic microangiopathic changes. Multiple sclerosis is also a differential consideration in the appropriate clinical setting for which clinical follow-up is advised. 2. Mild age-related global parenchymal volume loss.
== END 2017-03-25 16:10 | disposition home or self-care (01) ==
LOC: MRISED 11:14
PROVIDERS: ATTEND Psychiatry & Neurology Neurology
DX: G35 Multiple sclerosis (principal); R53.1 Weakness; I10 Essential (primary) hypertension; I25.10 Atherosclerotic heart disease of native coronary artery without angina pectoris
CPT/HCPCS: 70553; 72156; 93005; A9579; J2001; J2250; J2704; J7120

== ENCOUNTER 2017-06-01 13:41 | Emergency (ER) | payer MEDICARE ==
[2017-06-01 13:42] VITALS: BMI 28.5
[2017-06-01] MEDS ORDERED: TDAP Vaccine 0.5 mL Syr IM ONE (14:34)
[2017-06-01] MEDS ORDERED: Bacitracin Ointment 30 GM TUBE TOP STA (14:35)
[2017-06-01] MEDS ORDERED: Lidocaine 1% Inj (20ml) IJ STA (14:36)
--- NOTE | 2017-06-01 14:43 | ED PDOC ---
Arrival/HPI - General Chief Complaint: Trauma Time Seen by Provider: 06/01/17 13:54 Historian: Patient - History of Present Illness Narrative History of Present Illness (Text): you were treated in the ED today for hx of COPD, CHF, HTN, MS, GERD, was walking and felt possible got caught on something with a fall and hit your head with a cut and left forearm skin tear but otherwise without any loss of consciousness/neck pain/nausea/vomiting/headache/dizziness/difficulty breathing/ chest pain/abdomen pain/numbness/tingling/loss of limb function/pain with urination. 06/01/17 14:38 06/01/17 14:38 Time/Duration: Prior to Arrival Symptom Onset: Sudden Symptom Course: Improving Quality: Aching Severity Level: 1 Activities at Onset: Rest Context: Sitting, Walking Past Medical History - Provider Review Nursing Documentation Reviewed: Yes - Travel History Have you recently traveled outside [place] w/in the past 3 mons?: No - Infectious Disease Hx of Infectious Diseases: None - Tetanus Immunization Tetanus Immunization: Unknown - Cardiac Hx Pacemaker: No - Pulmonary Hx Chronic Obstructive Pulmonary Disease (COPD): Yes - Neurological Hx Paralysis: No - HEENT Hx HEENT Disorder: Yes Other/Comment: Left WRANGELL - Renal Hx Renal Disorder: Yes - Endocrine/Metabolic Hx Hypothyroidism: Yes - Hematological/Oncological Hx Blood Transfusions: Yes - Integumentary Hx Dermatological Disorder: Yes Other/Comment: dermatitis - Musculoskeletal/Rheumatological Hx Musculoskeletal Disorders: Yes - Gastrointestinal Hx Gastrointestinal Disorders: Yes Hx Gastroesophageal Reflux: Yes - Genitourinary/Gynecological Hx Genitourinary Disorders: Yes Hx Prostate Problems: Yes (BPH) Other/Comment: Urgency in urination. Erectile Dysfunction. - Psychiatric Hx Emotional Abuse: No Hx Physical Abuse: No Hx Substance Use: No - Surgical History Hx Appendectomy: Yes Hx Cardiac Catheterization: Yes Hx Orthopedic Surgery: Yes Other/Comment: ex-lap, right elbow repair, left elbow rotator cuff repair 2016 - Anesthesia Hx Anesthesia Reactions: Yes ("BLEEDING FROM AIRWAY USED") Hx Malignant Hyperthermia: No - Suicidal Assessment Feels Threatened In Home Enviroment: No Family/Social History - Physician Review Nursing Documentation Reviewed: Yes Family/Social History: No Known Family HX Smoking Status: Former Smoker Hx Alcohol Use: Yes (RARELY) Hx Substance Use: No Hx Substance Use Treatment: No Allergies/Home Meds Allergies/Adverse Reactions: Allergies tape Adverse Reaction (Uncoded 04/21/18 13:51) REDNESS Home Medications: Home Meds Medication Instructions Recorded Confirmed Ascorbic Acid [Vitamin C] 1,000 mg PO QAM 09/13/11 06/01/17 Atorvastatin [Lipitor] 40 mg PO QAM 09/13/11 06/01/17 Mefloquine [Lariam] 250 mg PO MON 01/20/15 06/01/17 Mirtazapine [Remeron] 15 mg PO HS 01/20/15 06/01/17 Esomeprazole Magnesium [Nexium] 40 mg PO DAILY 05/12/15 06/01/17 Montelukast [Singulair] 10 mg PO HS 05/12/15 06/01/17 [place]-3 Fatty Acids/Fish Oil 300 mg PO DAILY 05/12/15 06/01/17 [[place] 3 Fish Oil Softgel] Prasugrel [Effient] 10 mg PO DAILY 05/12/15 06/01/17 Temazepam [Restoril] 7.5 mg PO HS 05/12/15 06/01/17 Vitamin B Complex [Super B-50 1 tab PO DAILY 05/12/15 06/01/17 Complex] Lisinopril [Zestril] 5 mg PO DAILY 07/30/15 06/01/17 Tiotropium [Spiriva] 18 mcg NEB DAILY 07/30/15 06/01/17 Venlafaxine HCl [Venlafaxine HCl 75 mg PO DAILY 07/30/15 06/01/17 ER] buPROPion [Wellbutrin] 100 mg PO DAILY 07/30/15 06/01/17 Multivit-Min/FA/Lycopen/Lutein 1 tab PO DAILY 09/05/15 06/01/17 [Centrum Silver Tablet] Fluticasone Furoate [Arnuity 1 inh INH DAILY 03/13/16 06/01/17 Ellipta] Cholecalciferol [Vitamin D 1000 IU] 1 tab PO DAILY 03/17/16 06/01/17 Polyethylene Glycol 3350 [Miralax] 17 gm PO BID PRN 03/22/17 06/01/17 Digoxin [Digitek] 125 mcg PO DAILY 06/01/17 06/01/17 Rivaroxaban [Xarelto] 10 mg PO DAILY 04/21/18 04/21/18 Review of Systems - Review of Systems Constitutional: Normal Eyes: Normal ENT: Normal Respiratory: Normal Cardiovascular: Normal Gastrointestinal: Normal Genitourinary Male: Normal Musculoskeletal: Normal Skin: Other (cuts) Neurological: Normal Endocrine: Normal Hemo/Lymphatic: Normal Psychiatric: Normal Physical Exam Vital Signs Reviewed: Yes Vital Signs Temp Pulse Resp BP Pulse Ox 06/01/17 13:47 97.4 F L 57 L 18 124/82 96 Temperature: Afebrile Blood Pressure: Hypertensive Pulse: Regular Respiratory Rate: Normal Appearance: Positive for: Well-Appearing, Non-Toxic, Comfortable Pain Distress: None Mental Status: Positive for: Alert and Oriented X 3 - Systems Exam Head: Present: Normocephalic, Laceration, Other ( left eyebrow laceration but no facial bony tenderness except for mild discomfort over eyebrow cut and able to open/close mouth easily) Pupils: Present: PERRL Extroacular Muscles: Present: EOMI Conjunctiva: Present: Normal Ears: Present: Normal Mouth: Present: Moist Mucous Membranes Pharnyx: Present: Normal Nose (External): Present: Atraumatic Nose (Internal): Present: Normal Inspection Neck: Present: Normal Range of Motion Respiratory/Chest: Present: Clear to Auscultation, Good Air Exchange Cardiovascular: Present: Regular Rate and Rhythm Abdomen: No: Tenderness, Distention, Normal Bowel Sounds, Peritoneal Signs, Rebound, Guarding, McBurney's Point Tender, Rovsing's Sign Present, Hernias, Feeding Tubes, Ostomy Tubes, Mass/Organomegaly, Scars, Other Back: Present: Normal Inspection, Other (no c-t-l spinal or paraspinal tenderness) Upper Extremity: Present: Other (left forearm superficial skin tear without tay tenderness and otherwise warm/sensation/pink/good radial pulses, no spinal tenderness,) Lower Extremity: Present: Normal Inspection Neurological: Present: GCS=15, CN II-XII Intact, Speech Normal, Motor Func Grossly Intact Skin: Present: Warm, Other (see heent and ue) Medical Decision Making ED Course and Treatment: you were treated in the ED today for hx of COPD, CHF, HTN, MS, GERD, on eliquis , was walking and felt possible got caught on something with a fall and hit your head with a cut and left forearm skin tear but otherwise without any loss of consciousness/neck pain/nausea/vomiting/headache/dizziness/difficulty breathing/chest pain/abdomen pain/numbness/tingling/loss of limb function/pain with urination. You feel you tetanus may be out of date past 5 years. You were otherwise breathing easily, pink moist lips, smiling and talking easily, good strength/sensation, alert/oriented, walking easily, clear lungs, no abdomen tenderness, left eyebrow laceration but no facial bony tenderness except for mild discomfort over eyebrow cut and left forearm superficial skin tear without tay tenderness and otherwise warm/sensation/pink/good radial pulses, no spinal tenderness, no fever temp 97.4, stable heart rate 57, stable breathing rate 18, excellent oxygen level 96% room air, elevated blood pressure 124/82_ which we recommend repeat in 2-3 days primary care office to determine further treatment, you have blood tests mild reactive white blood cell count 14, stable blood level hemoglobin 12/platelets 239, stable chemistry and heart blood test, ct head radiology no acute intracranial bleeding, ECG sinus rhythm, left eyebrow laceration wound anti-septic cleanse, wound suture closure, tetanus booster, left forearm cleanse skin tear and dressing, observation done in the ED with improvement and you felt likely a trip type fall now, counselled to keep wound dry for 2 days, then can shower/soap water but don't rub and allow bacitracin ointment daily for infection prevention, and thus discharged home. 1.Recommend follow-up primary care 2 days to review symptoms, and then followup 7 days for suture removal evaluation, referral to neurology for white matter changes to ensure no complications, referral to vascular surgery clinic for vascular calcifications to ensure no complications, referral to referral to the dentist and oral maxillo-facial surgery or ear nose throat surgery for unerupted molar/maxilla lucency/possible cyst/maxilla thickening to ensure no complications/cancer development. 4. If any worsening pain, fever, chills, nausea, vomiting, difficulty breathing, numbness, loss of limb function, pain with urination or any medical condition then return to the ED. 06/01/17 14:43 06/01/17 15:58 procedure note: left eyebrow lac 4cm to muscle, no foreign bodies as wound explored, anti-septic/nacl irrigation/scrubbed, local anesthesia, subdermal 5-0 vicryl x1, skin closure 5-0 ethilon interrupted x 4, hemostasis, cleaned/ bacitracin ointment, henry procedure. facial superficial abrasions antiseptic/ nacl cleansed and bacitracin and left forearm superficial abrasion anti-septic/ nacl cleansed, bacitracin and dressing per nursing. 06/01/17 16:16 06/01/17 17:07 Reassessment Condition: Re-examined, Improved - Lab Interpretations Lab Results: 06/01/17 14:55 06/01/17 14:55 Lab Results 06/01/17 14:55: Sodium 139, Potassium 4.1, Chloride 105, Carbon Dioxide 22, Anion Gap 16, BUN 18, Creatinine 1.2, Est GFR ( Amer) > 60, Est GFR (Non- Af Amer) 59, Random Glucose 99, Calcium 9.3, Magnesium 2.0, Total Bilirubin 1.3 , AST 42, ALT 40, Alkaline Phosphatase 113, Lactate Dehydrogenase 447, Total Creatine Kinase 75, Troponin I 0.06, Total Protein 7.2, Albumin 4.2, Globulin 3.0, Albumin/Globulin Ratio 1.4 06/01/17 14:55: PT 19.9 H, INR 1.73 H, APTT 35.3 06/01/17 14:55: WBC 14.3 H D, RBC 4.39, Hgb 12.3 L, Hct 37.4 L, MCV 85.2, MCH 28.0, MCHC 32.9, RDW 16.9 H, Plt Count 239, MPV 9.4, Gran % 70.6 H, Lymph % ( Auto) 21.4 L, Amador % (Auto) 5.8, Eos % (Auto) 1.9, Baso % (Auto) 0.3, Gran # 10.12 H, Lymph # (Auto) 3.1, Amador # (Auto) 0.8 H, Eos # (Auto) 0.3, Baso # (Auto ) 0.05 I have reviewed the lab results: Yes - RAD Interpretation Radiology Orders: 06/01/17 14:35 HEAD W/O CONTRAST [CT] Stat Corset Fitter: Radiologist - EKG Interpretation Interpreted by ED Physician: Yes (ECG SR) Type: 12 lead EKG Comparison: Similar to previous EKG (03/05/17) - Medication Orders Current Medication Orders: Discontinued Medications Bacitracin (Bacitracin) 1 gm TOP STAT STA Stop: 06/01/17 14:36 Last Admin: 06/01/17 15:17 Dose: 1 applic Comments: Given to MD for procedure. Lidocaine HCl (Lidocaine 1% (20ml)) 10 ml IJ STAT STA Stop: 06/01/17 14:37 Last Admin: 06/01/17 15:17 Dose: 1 applic Comments: Given to MD for sutures Tetanus/Reduced Diphtheria/Acell Pertussis (Boostrix Vaccine Inj) 0.5 ml IM .ONCE ONE Stop: 06/01/17 14:35 Last Admin: 06/01/17 15:16 Dose: 0.5 ml Immunization Registry Document 06/01/17 15:16 [facility] (Rec: 06/01/17 15:16 [facility] [id number]) Immunization Registry Consent Date 03/25/17 Disposition/Present on Arrival - Present on Arrival Any Indicators Present on Arrival: No History of DVT/PE: No History of Uncontrolled Diabetes: No Urinary Catheter: No History of Decub. Ulcer: No History Surgical Site Infection Following: None - Disposition Have Diagnosis and Disposition been Completed?: Yes Diagnosis: Head injury, Eyebrow laceration Disposition: HOME/ ROUTINE Disposition Time: 17:12 Patient Plan: Discharge Patient Problems: Current Active Problems Problem Status Onset Head injury Acute Eyebrow laceration Acute Condition: IMPROVED Discharge Instructions (ExitCare): Minor Head Injury (DC) Additional Instructions: you were treated in the ED today for hx of COPD, CHF, HTN, MS, GERD, on eliquis , was walking and felt possible got caught on something with a fall and hit your head with a cut and left forearm skin tear but otherwise without any loss of consciousness/neck pain/nausea/vomiting/headache/dizziness/difficulty breathing/chest pain/abdomen pain/numbness/tingling/loss of limb function/pain with urination. You feel you tetanus may be out of date past 5 years. You were otherwise breathing easily, pink moist lips, smiling and talking easily, good strength/sensation, alert/oriented, walking easily, clear lungs, no abdomen tenderness, left eyebrow laceration but no facial bony tenderness except for mild discomfort over eyebrow cut and left forearm superficial skin tear without tay tenderness and otherwise warm/sensation/pink/good radial pulses, no spinal tenderness, no fever temp 97.4, stable heart rate 57, stable breathing rate 18, excellent oxygen level 96% room air, elevated blood pressure 124/82_ which we recommend repeat in 2-3 days primary care office to determine further treatment, you have blood tests mild reactive white blood cell count 14, stable blood level hemoglobin 12/platelets 239, stable chemistry and heart blood test, ct head radiology no acute intracranial bleeding, ECG sinus rhythm, left eyebrow laceration wound anti-septic cleanse, wound suture closure, tetanus booster, left forearm cleanse skin tear and dressing, observation done in the ED with improvement and you felt likely a trip type fall now, counselled to keep wound dry for 2 days, then can shower/soap water but don't rub and allow bacitracin ointment daily for infection prevention, and thus discharged home. 1.Recommend follow-up primary care 2 days to review symptoms, and then followup 7 days for suture removal evaluation, referral to neurology for white matter changes to ensure no complications, referral to vascular surgery clinic for vascular calcifications to ensure no complications, referral to referral to the dentist and oral maxillo-facial surgery or ear nose throat surgery for unerupted molar/maxilla lucency/possible cyst/maxilla thickening to ensure no complications/cancer development. 4. If any worsening pain, fever, chills, nausea, vomiting, difficulty breathing, numbness, loss of limb function, pain with urination or any medical condition then return to the ED. Forms: [employer] (Macedonian)
[2017-06-01 15:33] LABS: BASO # 0.05 K/mm3 (0.0-2.0); BASO % 0.3 % (0.0-3.0); EOS # 0.3 (0.0-0.7); EOS % 1.9 % (1.5-5.0); GRAN # 10.12 (1.4-6.5); GRAN % 70.6 % (50.0-68.0); HEMOGLOBIN 12.3 g/dL (14.0-18.0); LYMPH # 3.1 (1.2-3.4); LYMPH % 21.4 % (22.0-35.0); MEAN CELL VOLUME 85.2 fl (80.0-105.0); MEAN CORPUSCULAR HGB CONC 32.9 g/dl (31.0-37.0); MEAN PLATELET VOLUME 9.4 fl (7.0-11.0); MONO # 0.8 (0.1-0.6); MONO % 5.8 % (1.0-6.0); RBC 4.39 10^6/uL (3.5-6.1); RED CELL DISTRIBUTION WIDTH 16.9 % (11.5-14.5); WHITE BLOOD COUNT 14.3 10^3/ul (4.5-11.0)
[2017-06-01 15:46] LABS: ALB/GLOB RATIO 1.4 (1.1-1.8); ALBUMIN 4.2 g/dL (3.0-4.8); ALT/SGPT 40 U/L (7-56); AST/SGOT 42 U/L (17-59); BLOOD UREA NITROGEN 18 mg/dL (7-21); CALCIUM 9.3 mg/dL (8.4-10.5); GFR AFRICAN-AMERICAN > 60; GFR NON-AFRICAN AMERICAN 59
[2017-06-01 15:49] LABS: INR 1.73 (0.93-1.08); PARTIAL THROMBOPLASTIN TIME 35.3 Seconds (25.1-36.5); PROTHROMBIN TIME 19.9 SECONDS (9.4-12.5)
[2017-06-01 15:55] LABS: TROPONIN I 0.06 ng/mL
--- NOTE | 2017-06-01 17:00 | CT ---
PROCEDURE: CT HEAD WITHOUT CONTRAST. HISTORY: 76yoM with head injury/laceration COMPARISON: Comparison made with prior CT scan of the brain dated 07/30/2015. TECHNIQUE: Axial computed tomography images were obtained through the head/brain without intravenous contrast. Radiation dose: Total exam DLP = 990.07 mGy-cm. This CT exam was performed using one or more of the following dose reduction techniques: Automated exposure control, adjustment of the mA and/or kV according to patient size, and/or use of iterative reconstruction technique. FINDINGS: HEMORRHAGE: No acute parenchymal, subarachnoid or extra-axial hemorrhage. BRAIN: Moderate to fairly significant diffuse/ confluent chronic white matter ischemic changes seen extending peripherally into the deep and subcortical white matter both cerebral hemispheres. In addition, there are scattered chronic bilateral basal nuclei lacunar type infarcts. Note that the possibility of a tiny hyperacute infarct cannot be excluded on this study. Clinical correlation recommended. No obvious parenchymal nor extra-axial masses or collections seen on this noncontrast study. Moderate generalized volume loss. Vascular calcifications both carotid siphons as well as vertebrobasilar circulation. VENTRICLES: No obstructive hydrocephalus. CALVARIUM: There are no acute calvarial fractures. PARANASAL SINUSES: Unremarkable as visualized. No significant inflammatory changes. MASTOID AIR CELLS: Unremarkable as visualized. No inflammatory changes. Note again made of an unerupted molar tooth within the posterior aspect right maxilla. There is a small lucency within the posterior aspect of the left maxilla which could represent a prominent appearing residual socket from a since removed molar tooth versus old radicular cyst. Clinic correlation recommended. Minimal mucosal thickening both maxillary antra. There is also minor mucosal thickening few ethmoid air cells. Deviation of the nasal septum from right to left. OTHER FINDINGS: Orbits and contents unremarkable. IMPRESSION: No acute intracranial hemorrhage. Moderate -fairly significant chronic periventricular white matter ischemic changes. Moderate generalized volume loss
[2017-06-01 17:37] VITALS: BP 118/70; PULSE 80; RESP 17; TEMP 98.1; O2SAT 97
[2017-06-01 17:40] LABS: URINE APPEARANCE CLEAR (CLEAR); URINE BILIRUBIN NEGATIVE (NEGATIVE); URINE BLOOD NEGATIVE (NEGATIVE); URINE COLOR YELLOW (YELLOW); URINE GLUCOSE (UA) NEGATIVE (NEGATIVE); URINE LEUKOCYTE ESTERASE TRACE Leu/uL (NEGATIVE); URINE PROTEIN NEGATIVE mg/dL (<30 mg/dL); URINE UROBILINOGEN 0.2 E.U./dL (<1 E.U./dL)
[2017-06-01 18:00] LABS: URINE EPITHELIAL CELLS 0 - 2 /hpf (0-5); URINE RBC 0 - 2 /hpf (0-2)
--- NOTE | 2017-06-02 21:49 | CARD ---
APPROVED REPORT EKG Measurement Heart [id number] <Conclusion> Sinus rhythm with 1st degree AV block Left axis deviation Right bundle branch block Inferior infarct, age undetermined Abnormal ECG
== END 2017-06-01 17:39 | disposition home or self-care (01) ==
LOC: ED 13:41
DX: S01.112A Laceration without foreign body of left eyelid and periocular area, initial encounter (principal); W01.0XXA Fall on same level from slipping, tripping and stumbling without subsequent striking against object, initial encounter; Y92.89 Other specified places as the place of occurrence of the external cause; I10 Essential (primary) hypertension; K21.9 Gastro-esophageal reflux disease without esophagitis; G35 Multiple sclerosis; Z87.891 Personal history of nicotine dependence; Z23 Encounter for immunization

== ENCOUNTER 2017-08-28 03:39 | Inpatient (IN) | payer MEDICARE ==
[2017-08-28 03:47] VITALS: BMI 26.6
[2017-08-28] MEDS ORDERED: HYDROmorphone 1 mg/ml ISec IVP STA ×2 (03:49→06:16)
--- NOTE | 2017-08-28 03:51 | ED PDOC ---
Arrival/HPI - General Time Seen by Provider: 08/28/17 03:41 Historian: Patient - History of Present Illness Narrative History of Present Illness (Text): 08/28/17 03:48 A 77 year old male whose past medical history includes COPD, CHF, hypertension, MS, GERD, presents to the emergency department with a complaint of left rib and right chest and foot pain. As per the patient, he fell coming out of the movie theater yesterday at around 6PM. The patient states that he took 2 Percocet pills at home with no relief of his symptoms. The patient [facility]. The patient denies fevers, chills, headache, dizziness, LOC , shortness of breath, dyspnea on exertion, cough, abdominal pain, nausea, vomiting, diarrhea, back pain, neck pain, urinary/bowel changes, or any other complaint. Time/Duration: Other (6PM yesterday) Symptom Onset: Sudden Symptom Course: Worsening Activities at Onset: Rest, Light Context: Other (Movie Theater) Past Medical History - Provider Review Nursing Documentation Reviewed: Yes - Infectious Disease Hx of Infectious Diseases: None - Tetanus Immunization Tetanus Immunization: Unknown - Cardiac Hx Pacemaker: No - Pulmonary Hx Chronic Obstructive Pulmonary Disease (COPD): Yes - Neurological Hx Paralysis: No - HEENT Hx HEENT Disorder: Yes Other/Comment: Left KALISPEL - Renal Hx Renal Disorder: Yes - Endocrine/Metabolic Hx Hypothyroidism: Yes - Hematological/Oncological Hx Blood Transfusions: Yes - Integumentary Hx Dermatological Disorder: Yes Other/Comment: dermatitis - Musculoskeletal/Rheumatological Hx Musculoskeletal Disorders: Yes - Gastrointestinal Hx Gastrointestinal Disorders: Yes Hx Gastroesophageal Reflux: Yes - Genitourinary/Gynecological Hx Genitourinary Disorders: Yes Hx Prostate Problems: Yes (BPH) Other/Comment: Urgency in urination. Erectile Dysfunction. - Psychiatric Hx Emotional Abuse: No Hx Physical Abuse: No Hx Substance Use: No - Surgical History Hx Appendectomy: Yes Hx Cardiac Catheterization: Yes Hx Orthopedic Surgery: Yes Other/Comment: ex-lap, right elbow repair, left elbow rotator cuff repair 2016 - Anesthesia Hx Anesthesia Reactions: Yes ("BLEEDING FROM AIRWAY USED") Hx Malignant Hyperthermia: No - Suicidal Assessment Feels Threatened In Home Enviroment: No Family/Social History - Physician Review Nursing Documentation Reviewed: Yes Family/Social History: No Known Family HX Smoking Status: Former Smoker Hx Alcohol Use: Yes (RARELY) Hx Substance Use: No Hx Substance Use Treatment: No Allergies/Home Meds Allergies/Adverse Reactions: Allergies tape Adverse Reaction (Uncoded 08/28/17 03:47) REDNESS Home Medications: Home Meds Medication Instructions Recorded Confirmed Ascorbic Acid [Vitamin C] 1,000 mg PO QAM 09/13/11 08/28/17 Atorvastatin [Lipitor] 40 mg PO QAM 09/13/11 08/28/17 Mirtazapine [Remeron] 15 mg PO HS 01/20/15 08/28/17 Montelukast [Singulair] 10 mg PO HS 05/12/15 08/28/17 [place]-3 Fatty Acids/Fish Oil 300 mg PO DAILY 05/12/15 08/28/17 [[place] 3 Fish Oil Softgel] Prasugrel [Effient] 10 mg PO DAILY 05/12/15 08/28/17 Temazepam [Restoril] 7.5 mg PO HS 05/12/15 08/28/17 Vitamin B Complex [Super B-50 1 tab PO DAILY 05/12/15 08/28/17 Complex] Lisinopril [Zestril] 5 mg PO DAILY 07/30/15 08/28/17 Tiotropium [Spiriva] 18 mcg NEB DAILY 07/30/15 08/28/17 Venlafaxine HCl [Venlafaxine HCl 75 mg PO DAILY 07/30/15 08/28/17 ER] buPROPion [Wellbutrin] 100 mg PO DAILY 07/30/15 08/28/17 Multivit-Min/FA/Lycopen/Lutein 1 tab PO DAILY 09/05/15 08/28/17 [Centrum Silver Tablet] Cholecalciferol [Vitamin D 1000 IU] 1 tab PO DAILY 03/17/16 08/28/17 Rivaroxaban [Xarelto] 10 mg PO DAILY 06/01/17 08/28/17 Polyethylene Glycol 3350 [Miralax] 34 mg PO HS 08/28/17 08/28/17 Review of Systems - Physician Review All systems were reviewed & negative as marked: Yes - Review of Systems Constitutional: absent: Fevers, Night Sweats Respiratory: absent: SOB, Cough Cardiovascular: Chest Pain (Right sided chest pain ). absent: RIOJAS Gastrointestinal: absent: Stool Changes, Diarrhea, Nausea Genitourinary Male: absent: Urinary Output Changes Musculoskeletal: Other (Left sided rib pain and right foot pain.). absent: Back Pain, Neck Pain Neurological: absent: Headache, Dizziness Physical Exam Vital Signs Reviewed: Yes Vital Signs Temp Pulse Resp BP Pulse Ox 08/28/17 07:00 88 18 139/78 93 L 08/28/17 05:58 88 18 116/69 92 L 08/28/17 04:00 97.9 F 89 18 132/95 H 93 L Temperature: Afebrile Blood Pressure: Hypertensive Pulse: Regular Respiratory Rate: Normal Appearance: Positive for: Well-Appearing Pain Distress: Mild Mental Status: Positive for: Alert and Oriented X 3 - Systems Exam Head: Present: Atraumatic, Normocephalic Pupils: Present: PERRL Extroacular Muscles: Present: EOMI Conjunctiva: Present: Normal Mouth: Present: Moist Mucous Membranes Neck: Present: Normal Range of Motion Respiratory/Chest: Present: Clear to Auscultation, Good Air Exchange, Tender to Palpation (Tender to the left ribs.). No: Respiratory Distress, Accessory Muscle Use Cardiovascular: Present: Regular Rate and Rhythm, Normal S1, S2. No: Murmurs Abdomen: No: Tenderness, Distention, Peritoneal Signs Back: Present: Normal Inspection Upper Extremity: Present: Normal Inspection. No: Cyanosis, Edema Lower Extremity: Present: Other (Ecchymosis to the lateral aspect of the right foot. ). No: Edema Neurological: Present: GCS=15, CN II-XII Intact, Speech Normal Skin: Present: Warm, Dry, Normal Color. No: Rashes Psychiatric: Present: Alert, Oriented x 3, Normal Insight, Normal Concentration Medical Decision Making ED Course and Treatment: 08/28/17 03:52 Impression: A 77 year old male presents to the emergency department complaining of right sided chest, foot, and left rib pain s/p a fall at around 6PM yesterday. Plan: -- EKG -- Chest CT -- Right Foot X-Ray -- Urinalysis -- Labs -- Dilaudid -- Reassess and disposition Progress Notes: 08/28/17 04:21 EKG: Ordered, reviewed, and independently interpreted the EKG. Rate : 91 BPM Rhythm : Sinus Rhythm with 1st degree AV block Interpretation : Possible left atrial enlargement. Left axis deviation. RBBB. Inferior infarct, age undetermined. - Lab Interpretations Lab Results: 08/28/17 04:20 08/28/17 05:05 Lab Results 08/28/17 05:05: Sodium 140, Potassium 4.4, Chloride 107, Carbon Dioxide 20 L, Anion Gap 17, BUN 23 H, Creatinine 1.3, Est GFR ( Amer) > 60, Est GFR ( Non-Af Amer) 53, Random Glucose 155 H, Calcium 8.9, Magnesium 1.8, Total Bilirubin 0.8, AST 35, ALT 41, Alkaline Phosphatase 117, Lactate Dehydrogenase 518, Total Creatine Kinase 97, Troponin I 0.05, Total Protein 7.3, Albumin 4.0, Globulin 3.4, Albumin/Globulin Ratio 1.2 08/28/17 04:20: WBC 21.8 H D, RBC 4.73, Hgb 13.2 L, Hct 39.7 L, MCV 83.9, MCH 27.9, MCHC 33.2, RDW 14.8 H, Plt Count 295, MPV 9.0, Gran % 75.2 H, Lymph % ( Auto) 18.3 L, [place] % (Auto) 5.1, Eos % (Auto) 1.1 L, Baso % (Auto) 0.3, Gran # 16.37 H, Lymph # (Auto) 4.0 H, [place] # (Auto) 1.1 H, Eos # (Auto) 0.2, Baso # ( Auto) 0.07 I have reviewed the lab results: Yes - RAD Interpretation Radiology Orders: 08/28/17 03:49 CHEST W/O CONTRAST [CT] Stat FOOT RIGHT 3 VIEWS ROUTINE [RAD] Stat - EKG Interpretation Interpreted by ED Physician: Yes Type: 12 lead EKG - Medication Orders Current Medication Orders: Atorvastatin Calcium (Lipitor) 40 mg PO QAM [facility] Last Admin: 08/28/17 12:38 Dose: 40 mg Bisacodyl (Dulcolax) 10 mg RC DAILY PRN PRN Reason: constipation Bupropion HCl (Wellbutrin) 100 mg PO DAILY [facility] Last Admin: 08/28/17 12:38 Dose: 100 mg Cholecalciferol (Vitamin D) 1,000 intlu PO DAILY [facility] Hydromorphone HCl (Dilaudid) 1 mg IVP Q4H PRN PRN Reason: Pain, severe (8-10) Last Admin: 08/28/17 17:58 Dose: 1 mg [facility] Pain Assessment Document 08/28/17 17:58 RT (Rec: 08/28/17 17:58 RT [id number]) Pain Reassessment Is this a pain reassessment? Yes Presence of Pain Presence of Pain Yes Pain Scale Used Pain Scale Used Numeric Location Left, Right or Bilateral Left Description Description Constant Intensity of Pain at present 9 Pain Behavior Moaning Grasping Site Facial Grimacing Alleviating Factors/Management Medication Techniques Alleviating Factors Medication IVP Administration Document 08/28/17 17:58 RT (Rec: 08/28/17 17:58 RT [place] [id number]) Charges for Administration # of IVP Administrations 1 Re-Assess: [facility] Pain Assessment Document 08/28/17 18:58 GC (Rec: 08/28/17 19:34 GC [id number]) Pain Reassessment Is this a pain reassessment? Yes Sleep Is patient sleeping during reassessment? Yes Levalbuterol HCl (Xopenex) 0.63 mg IH [id number] [facility] Last Admin: 08/28/17 14:37 Dose: Levothyroxine Sodium (Synthroid) 175 mcg PO DAILY [facility] Last Admin: 08/28/17 12:38 Dose: 175 mcg Lisinopril (Zestril) 5 mg PO DAILY [facility] Last Admin: 08/28/17 13:42 Dose: Not Given Non-Admin Reason: BP Parameters Not Met [facility] Pulse and Blood Pressure Document 08/28/17 13:42 RT (Rec: 08/28/17 13:42 RT [id number]) Blood Pressure Blood Pressure (100/60-150/90) 95/48 Mirtazapine (Remeron) 15 mg PO HS [facility] Montelukast Sodium (Singulair) 10 mg PO HS [facility] Oxycodone/Acetaminophen (Percocet 5/325 Mg Tab) 1 tab PO Q4H PRN PRN Reason: Pain, moderate (4-7) Stop: 08/31/17 12:56 Last Admin: 08/28/17 17:15 Dose: 1 tab [facility] Pain Assessment Document 08/28/17 17:15 RT (Rec: 08/28/17 17:15 RT [id number]) Pain Reassessment Is this a pain reassessment? Yes Presence of Pain Presence of Pain Yes Pain Scale Used Pain Scale Used Numeric Location Left, Right or Bilateral Left Description Description Constant Pain Behavior Grasping Site Facial Grimacing Re-Assess: [facility] Pain Assessment Document 08/28/17 18:15 (Rec: 08/28/17 19:35 [id number] Pain Reassessment Is this a pain reassessment? Yes Sleep Is patient sleeping during reassessment? Yes Polyethylene Glycol (Miralax) 17 gm PO BID [facility] Last Admin: 08/28/17 17:17 Dose: 17 gm Prasugrel (Effient) 10 mg PO DAILY [facility] Last Admin: 08/28/17 12:38 Dose: 10 mg Rivaroxaban (Xarelto) 10 mg PO DAILY [facility] PRN Reason: Protocol Last Admin: 08/28/17 12:38 Dose: 10 mg Tiotropium [place] (Spiriva) 18 mcg IH DAILY [facility] Last Admin: 08/28/17 12:39 Dose: 18 mcg Venlafaxine HCl (Effexor Xr) 75 mg PO DAILY [facility] Discontinued Medications Bisacodyl (Dulcolax) 10 mg RC BID PRN PRN Reason: constipation Hydromorphone HCl (Dilaudid) 1 mg IVP STAT STA Stop: 08/28/17 03:50 Last Admin: 08/28/17 04:10 Dose: 1 mg [facility] Pain Assessment Document 08/28/17 04:10 (Rec: 08/28/17 04:19 HAY) Pain Reassessment Is this a pain reassessment? Yes Presence of Pain Presence of Pain Yes Pain Scale Used Pain Scale Used Numeric Location Left, Right or Bilateral Left Pain Location Body Site Arm Description Description Constant IVP Administration Document 08/28/17 04:10 (Rec: 08/28/17 04:19 HAY) Charges for Administration # of IVP Administrations 1 Re-Assess: [facility] Pain Assessment Document 08/28/17 05:10 (Rec: 08/28/17 06:36 HAY) Pain Reassessment Is this a pain reassessment? Yes Sleep Is patient sleeping during reassessment? No Presence of Pain Presence of Pain Yes Hydromorphone HCl (Dilaudid) 1 mg IVP STAT STA Stop: 08/28/17 06:17 Last Admin: 08/28/17 06:36 Dose: 1 mg [facility] Pain Assessment Document 08/28/17 06:36 RG (Rec: 08/28/17 06:36 RG [id number]) Pain Reassessment Is this a pain reassessment? Yes Location Left, Right or Bilateral Left Pain Location Body Site Arm Description Pain Behavior Moaning IVP Administration Document 08/28/17 06:36 RG (Rec: 08/28/17 06:36 RG [id number]) Charges for Administration # of IVP Administrations 1 Re-Assess: [facility] Pain Assessment Document 08/28/17 07:36 RT (Rec: 08/28/17 13:43 RT [id number]) Pain Reassessment Is this a pain reassessment? Yes - Scribe Statement The provider has reviewed the documentation as recorded by the Scribe Soha Rhodes Provider Scribe Attestation: All medical record entries made by the Scribe were at my direction and personally dictated by me. I have reviewed the chart and agree that the record accurately reflects my personal performance of the history, physical exam, medical decision making, and the department course for this patient. I have also personally directed, reviewed, and agree with the discharge instructions and disposition. Disposition/Present on Arrival - Present on Arrival Any Indicators Present on Arrival: No History of DVT/PE: No History of Uncontrolled Diabetes: No Urinary Catheter: No History Surgical Site Infection Following: None - Disposition Have Diagnosis and Disposition been Completed?: Yes Diagnosis: Ribs, multiple fractures Disposition: HOSPITALIZED Disposition Time: 06:15 Condition: FAIR
[2017-08-28 04:34] LABS: BASO # 0.07 K/mm3 (0.0-2.0); BASO % 0.3 % (0.0-3.0); EOS # 0.2 (0.0-0.7); EOS % 1.1 % (1.5-5.0); GRAN # 16.37 (1.4-6.5); GRAN % 75.2 % (50.0-68.0); HEMOGLOBIN 13.2 g/dL (14.0-18.0); LYMPH % 18.3 % (22.0-35.0); MEAN CELL VOLUME 83.9 fl (80.0-105.0); MEAN CORPUSCULAR HEMOGLOBIN 27.9 pg (25.0-35.0); MEAN CORPUSCULAR HGB CONC 33.2 g/dl (31.0-37.0); MONO # 1.1 (0.1-0.6); MONO % 5.1 % (1.0-6.0); RBC 4.73 10^6/uL (3.5-6.1); RED CELL DISTRIBUTION WIDTH 14.8 % (11.5-14.5)
[2017-08-28 04:48] LABS: WHITE BLOOD COUNT 21.8 10^3/ul (4.5-11.0)
[2017-08-28 05:31] LABS: ALB/GLOB RATIO 1.2 (1.1-1.8); ALT/SGPT 41 U/L (7-56); AST/SGOT 35 U/L (17-59); BLOOD UREA NITROGEN 23 mg/dL (7-21); CALCIUM 8.9 mg/dL (8.4-10.5); GFR AFRICAN-AMERICAN > 60; GFR NON-AFRICAN AMERICAN 53
[2017-08-28 05:42] LABS: TROPONIN I 0.05 ng/mL
--- NOTE | 2017-08-28 09:19 | CARD ---
APPROVED REPORT Date of service: 08/28/2017 EKG Measurement Heart [id number] <Conclusion> Sinus rhythm with 1st degree AV block Possible Left atrial enlargement Left axis deviation Right bundle branch block Inferior infarct, age Old. Abnormal ECG
[2017-08-28] MEDS: HYDROmorphone 1 mg/ml ISec IVP PRN ×4 (10:07→22:06)
--- NOTE | 2017-08-28 10:07 | RAD ---
Date of service: 08/28/2017 PROCEDURE: Right Foot Radiographs. HISTORY: fall COMPARISON: None. FINDINGS: BONES: Normal. No fracture. JOINTS: Normal. SOFT TISSUES: Normal. OTHER FINDINGS: None. IMPRESSION: No acute findings
--- NOTE | 2017-08-28 11:04 | CT ---
Date of service: 08/28/2017 PROCEDURE: CT Chest without contrast HISTORY: Trauma COMPARISON: None. TECHNIQUE: Contiguous axial images were obtained through the chest without intravenous contrast enhancement. Sagittal and coronal reconstructions were performed. Radiation dose (DLP): 717.71 mGy-cm. This CT exam was performed using one or more of the following dose reduction techniques: Automated exposure control, adjustment of the mA and/or kV according to patient size, and/or use of iterative reconstruction technique. FINDINGS: LUNGS: There is diffuse centrilobular emphysema in the lungs with upper lobe predominance. There is patchy airspace disease in the lung bases. There is mild bronchial wall thickening. There are no endobronchial lesions. MEDIASTINUM: The heart is normal in size. No pericardial effusion. The aorta is not dilated. There are atherosclerotic calcifications in the coronary arteries PLEURA: No pleural fluid. No pneumothorax. BONES: There are acute nondisplaced fractures in the left posterior 6, 7, 8, 9 and 10th ribs. There are old fracture deformities in the left posterior for and 5th ribs. There is a subacute healing fracture in the left lateral 6th rib. Status post right shoulder arthroplasty. UPPER ABDOMEN: Grossly unremarkable. 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 IMPRESSION: 1. Acute nondisplaced fractures in the left posterior 6th, 7th, 8th, 9th and 10th ribs. No pneumothorax, pleural effusion or lung contusion. 2. Subacute and chronic fracture deformities in the left posterior for, and 6th ribs. 3. Diffuse centrilobular emphysema in the lungs. Patchy airspace disease in the lung bases may represent atelectasis/pneumonia. Follow-up is advised. A preliminary report was provided by [facility].
[2017-08-28] MEDS: Levothyroxine 175 MCG TAB PO SCH (12:38)
[2017-08-28] MEDS: Tiotropium 18 mcg Cap For Inhalation IH SCH (12:39)
--- NOTE | 2017-08-28 13:52 | CP.PCM.HP ---
<Derek Briggs - Last Filed: 08/28/17 17:39> History of Present Illness - History of Present Illness History of Present Illness: Medicine H&P for Dr. Osborne's service - Aracelis Briggs PGY3 HPI: Patient is a 76yo male with past medical history of MS (chronic R-sided muscle weakness), IL s/p 2 stents, hypothyroidism, hydrocele, COPD, HTN, HLD, hearing loss bilaterally and chronic constipation who presented to [facility] s/p fall. Patient reported that he was leaving a movie theater at approximately 6pm when he suddenly fell and slipped on his left buttocks/back. He denied loss of consciousness, hitting his head, tongue biting, bowel/bladder incontinence. He subsequently went home where he took percocet for pain relief. Shortly thereafter he continued to experience pain with shortness of breath and decided to come to the ER for evaluation. On arrival, a chest CT revealed acute nondisplaced fractures of the left posterior 6-10 ribs with no pneumothorax, pleural effusion or lung contusion as well as diffuse centrilobular emphysema. He denied chest pain, palpitations, fever, chills, cough, headache, vision abnormalities, new-onset focal weakness, numbness, tingling, dysuria, frequency , urgency. 12point ROS as per above otherwise negative PMH: as stated above PSH: s/p LN biopsy of thorax, R inguinal hernia repair (2011), appy, ex-lap w/ finding of clot, Cardiac cath and stenting Social Hx: former heavy tobacco user (~50 yrs of 2ppd on average, quit > 15 years ago), rare ETOH use, denies illicits/IVDA drug use Family Hx: CAD (Father) Present on Admission - Present on Admission Any Indicators Present on Admission: No Past Patient History - Infectious Disease Hx of Infectious Diseases: None - Tetanus Immunizations Tetanus Immunization: Unknown - Past Medical History & Family History Past Medical History?: Yes - Past Social History Smoking Status: Former Smoker - CARDIAC Hx Pacemaker: No - PULMONARY Hx Chronic Obstructive Pulmonary Disease (COPD): Yes - NEUROLOGICAL Hx Paralysis: No - HEENT Hx HEENT Problems: Yes Other/Comment: Left SUN'AQ - RENAL Hx Chronic Kidney Disease: Yes - ENDOCRINE/METABOLIC Hx Hypothyroidism: Yes - HEMATOLOGICAL/ONCOLOGICAL Hx Blood Transfusions: Yes - INTEGUMENTARY Hx Dermatological Problems: Yes Other/Comment: dermatitis - MUSCULOSKELETAL/RHEUMATOLOGICAL Hx Musculoskeletal Disorders: Yes - GASTROINTESTINAL Hx Gastrointestinal Disorders: Yes Hx Gastroesophageal Reflux: Yes - GENITOURINARY/GYNECOLOGICAL Hx Genitourinary Disorders: Yes Hx Prostate Problems: Yes (BPH) Other/Comment: Urgency in urination. Erectile Dysfunction. - PSYCHIATRIC Hx Emotional Abuse: No Hx Physical Abuse: No Hx Substance Use: No - SURGICAL HISTORY Hx Appendectomy: Yes Hx Cardiac Catheterization: Yes Hx Orthopedic Surgery: Yes Other/Comment: ex-lap, right elbow repair, left elbow rotator cuff repair 2016 - ANESTHESIA Hx Anesthesia Reactions: Yes ("BLEEDING FROM AIRWAY USED") Hx Malignant Hyperthermia: No Meds Allergies/Adverse Reactions: Allergies Allergy/AdvReac Type Severity Reaction Status Date / Time tape AdvReac REDNESS Uncoded 08/28/17 03:47 Physical Exam - Constitutional Appears: No Acute Distress - Head Exam Head Exam: ATRAUMATIC, NORMAL INSPECTION, NORMOCEPHALIC - Eye Exam Eye Exam: EOMI Pupil Exam: PERRL - ENT Exam ENT Exam: Mucous Membranes Moist - Neck Exam Neck exam: Positive for: Normal Inspection - Respiratory Exam Respiratory Exam: Chest Wall Tenderness (left-sided), Clear to Auscultation Bilateral. absent: Rales, Rhonchi, Wheezes - GI/Abdominal Exam GI & Abdominal Exam: Distended, Soft. absent: Firm, Guarding, Tenderness - Neurological Exam Neurological exam: Alert, CN II-XII Intact, Oriented x3 - Psychiatric Exam Psychiatric exam: Normal Affect, Normal Mood - Skin Skin Exam: Dry, Intact, Normal Color, Warm Results - Vital Signs Recent Vital Signs: Last Vital Signs Temp 98.5 F 08/28/17 12:00 Pulse 86 08/28/17 12:00 Resp 20 08/28/17 12:00 BP 95/48 L 08/28/17 13:42 Pulse Ox 93 L 08/28/17 09:45 - Labs Result Diagrams: 08/28/17 04:20 08/28/17 05:05 Assessment & Plan - Assessment and Plan (Free Text) Plan: 77yo male with history of MS, IL s/p 2 stents, hypothyroidism, hydrocele, COPD, HTN, HLD, atrial fibrillation presents with left-sided rib fractures s/p fall 1. Acute left-sided rib fractures 2. shortness of breath in the setting of chronic COPD 3. hypothyroidism 4. Hx of Paroxysmal atrial fibrillation on xarelto 5. hypertension 6. hyperlipidemia 7. Hx of IL -CT Chest was reviewed and he is currently on morphine/percocet for pain control -Physical therapy evaluation/treatment ordered -He is on spiriva, singulair and xopenex for his history of COPD, effient/ lipitor for hx of IL -He is on lisinopril for hypertension, synthroid for hypothyroidism, xarelto for hx of paroxysmal atrial fibrillation -TCU evaluation pending -Right Foot xray revealed no acute abnormalities -EKG revealed sinus rhythm with 1st degree AV block, possible LAE, LAD, RBBB and old inferior infarct -PT/OT evaluation -OOB to chair -HOB > 30' Patient seen and case discussed/reviewed with attending, Dr. Osborne <Ap Osborne S - Last Filed: 08/28/17 22:32> Results - Vital Signs Recent Vital Signs: Last Vital Signs Temp 98.1 F 08/28/17 17:24 Pulse 90 08/28/17 18:00 Resp 19 08/28/17 17:24 BP 112/60 08/28/17 17:24 Pulse Ox 93 L 08/28/17 09:45 - Labs Result Diagrams: 08/28/17 04:20 08/28/17 05:05 Labs: Laboratory Results - last 24 hr 08/28/17 17:15 Urine Color Dark yellow Urine Appearance Sl cloudy Urine pH 5.5 Ur Specific [place] >= 1.030 Urine Protein Trace H Urine Glucose (UA) Negative Urine Ketones Negative Urine Blood Large H Urine Nitrate Negative Urine Bilirubin Negative Urine Urobilinogen 0.2 Ur Leukocyte Esterase Negative Urine RBC Tntc Urine WBC 10 - 15 Ur Epithelial Cells 6 - 8 Urine Bacteria Mod Assessment & Plan - Assessment and Plan (Free Text) Plan: Pt seen and examined. I have reviewed the note of the medical artist and agree with it. I have discussed the assessment and plan with the resident. I have reviewed the patient's labs and medications. Pt with fall and has L rib fx. He will need admission and pain control. He will need PT. Will need to continue with Xarelto for A fib. He does not have a pneumothorax. He has an elevated WCC and will repeat labs.
[2017-08-28] MEDS ORDERED: Pneumococcal 23-Valent Vaccine IM ONE (14:31)
[2017-08-28] MEDS: Levalbuterol 0.63 MG/3 ML Inhal Soln UD IH SCH ×2 (14:37→20:46)
[2017-08-28] MEDS: Oxycodone/Acetaminophen 5/325 mg Tab PO PRN ×2 (17:15→21:02)
[2017-08-28] MEDS: POLYETHYLENE GLYCOL 3350 17 GM/Dose PACKET PO SCH (17:17)
[2017-08-28 19:06] LABS: PH,URINE 5.5 (4.7-8.0); URINE BILIRUBIN NEGATIVE (NEGATIVE); URINE BLOOD LARGE (NEGATIVE); URINE GLUCOSE (UA) NEGATIVE (NEGATIVE); URINE LEUKOCYTE ESTERASE NEGATIVE Leu/uL (NEGATIVE); URINE PROTEIN TRACE mg/dL (<30 mg/dL); URINE UROBILINOGEN 0.2 E.U./dL (<1 E.U./dL)
[2017-08-28 19:07] LABS: URINE APPEARANCE SL CLOUDY (CLEAR); URINE COLOR DARK YELLOW (YELLOW)
[2017-08-28 19:13] LABS: URINE RBC TNTC /hpf (0-2)
[2017-08-28 19:14] LABS: URINE BACTERIA MOD (NEG)
[2017-08-29] MEDS ORDERED: guaiFENesin 100 mg/5 ml Syrup UD PO STA (00:18)
[2017-08-29] MEDS: Oxycodone/Acetaminophen 5/325 mg Tab PO PRN (00:35)
[2017-08-29] MEDS: HYDROmorphone 1 mg/ml ISec IVP PRN ×5 (01:38→20:36)
[2017-08-29] MEDS: Levalbuterol 0.63 MG/3 ML Inhal Soln UD IH SCH ×5 (01:39→19:41)
[2017-08-29 07:02] LABS: BASO # 0.07 K/mm3 (0.0-2.0); BASO % 0.3 % (0.0-3.0); EOS # 0.2 (0.0-0.7); EOS % 0.8 % (1.5-5.0); GRAN # 21.04 (1.4-6.5); GRAN % 75.8 % (50.0-68.0); HEMOGLOBIN 13.1 g/dL (14.0-18.0); LYMPH # 4.6 (1.2-3.4); LYMPH % 16.6 % (22.0-35.0); MEAN CELL VOLUME 85.2 fl (80.0-105.0); MEAN CORPUSCULAR HEMOGLOBIN 28.2 pg (25.0-35.0); MEAN CORPUSCULAR HGB CONC 33.1 g/dl (31.0-37.0); MEAN PLATELET VOLUME 9.3 fl (7.0-11.0); MONO # 1.8 (0.1-0.6); MONO % 6.5 % (1.0-6.0); RBC 4.65 10^6/uL (3.5-6.1); RED CELL DISTRIBUTION WIDTH 15.1 % (11.5-14.5)
[2017-08-29 07:16] LABS: ALB/GLOB RATIO 1.1 (1.1-1.8); ALBUMIN 4.1 g/dL (3.0-4.8)
[2017-08-29 07:26] LABS: WHITE BLOOD COUNT 27.8 10^3/ul (4.5-11.0)
--- NOTE | 2017-08-29 08:17 | CP.PCM.PN ---
Addendum entered and electronically signed by Derek Briggs DO 08/29/17 12:10 : Addendum: Plan: -Worsening leukocytosis concerning for PNA; started on rocephin/azithromycin for abx coverage -Procalcitonin pending -Robitussin PRN for cough, tylenol PRN for fevers -Incentive spirometry -Oral hygeine Original Note: <Derek Briggs - Last Filed: 08/29/17 08:13> Subjective - Date & Time of Evaluation Date of Evaluation: 08/29/17 Time of Evaluation: 08:13 - Subjective Subjective: Medicine progress note for Dr. Osborne's service - Aracelis Briggs PGY3 Patient seen and examined at bedside this morning. No acute overnight events or new complaints reported. Denies chest pain, palpitations, SOB. Continues to have left-sided rib pain. Objective - Vital Signs/Intake and Output Vital Signs (last 24 hours): Temp Pulse Resp BP Pulse Ox 97.9 F 102 H 19 143/87 91 L 08/29/17 06:00 08/29/17 06:00 08/29/17 06:00 08/29/17 06:00 08/29/17 06:00 Intake and Output: 08/29/17 08/29/17 06:59 18:59 Intake Total 180 Output Total 600 Balance -420 - Medications Medications: Current Medications Atorvastatin Calcium (Lipitor) 40 mg PO QAM [facility] Last Admin: 08/28/17 12:38 Dose: 40 mg Bisacodyl (Dulcolax) 10 mg RC DAILY PRN PRN Reason: constipation Bupropion HCl (Wellbutrin) 100 mg PO DAILY [facility] Last Admin: 08/28/17 12:38 Dose: 100 mg Cholecalciferol (Vitamin D) 1,000 intlu PO DAILY [facility] Hydromorphone HCl (Dilaudid) 1 mg IVP Q4H PRN PRN Reason: Pain, severe (8-10) Last Admin: 08/29/17 05:37 Dose: 1 mg Levalbuterol HCl (Xopenex) 0.63 mg IH [id number] [facility] Last Admin: 08/29/17 07:20 Dose: 0.63 mg Levothyroxine Sodium (Synthroid) 175 mcg PO DAILY [facility] Last Admin: 08/28/17 12:38 Dose: 175 mcg Lisinopril (Zestril) 5 mg PO DAILY [facility] Last Admin: 08/28/17 13:42 Dose: Not Given Mirtazapine (Remeron) 15 mg PO HS [facility] Last Admin: 08/28/17 21:02 Dose: 15 mg Montelukast Sodium (Singulair) 10 mg PO HS [facility] Last Admin: 08/28/17 21:02 Dose: 10 mg Oxycodone/Acetaminophen (Percocet 5/325 Mg Tab) 1 tab PO Q4H PRN PRN Reason: Pain, moderate (4-7) Stop: 08/31/17 12:56 Last Admin: 08/29/17 00:35 Dose: 1 tab Polyethylene Glycol (Miralax) 17 gm PO BID [facility] Last Admin: 08/28/17 17:17 Dose: 17 gm Prasugrel (Effient) 10 mg PO DAILY [facility] Last Admin: 08/28/17 12:38 Dose: 10 mg Rivaroxaban (Xarelto) 10 mg PO DAILY [facility] PRN Reason: Protocol Last Admin: 08/28/17 12:38 Dose: 10 mg Tiotropium [place] (Spiriva) 18 mcg IH DAILY [facility] Last Admin: 08/28/17 12:39 Dose: 18 mcg Venlafaxine HCl (Effexor Xr) 75 mg PO DAILY [facility] - Labs Labs: 08/29/17 06:00 08/29/17 06:00 - Constitutional Appears: No Acute Distress - Head Exam Head Exam: ATRAUMATIC, NORMAL INSPECTION, NORMOCEPHALIC - Eye Exam Eye Exam: EOMI, PERRL - ENT Exam ENT Exam: Mucous Membranes Moist - Neck Exam Neck Exam: Normal Inspection - Respiratory Exam Respiratory Exam: Chest Wall Tenderness, Wheezes. absent: Rales, Rhonchi - Cardiovascular Exam Cardiovascular Exam: RRR, +S1, +S2. absent: Gallop, Rubs - GI/Abdominal Exam GI & Abdominal Exam: Soft. absent: Distended, Firm, Guarding, Rigid, Tenderness , Rebound - Extremities Exam Extremities Exam: Normal Inspection. absent: Pedal Edema - Neurological Exam Neurological Exam: Alert, Awake, CN II-XII Intact, Oriented x3 - Psychiatric Exam Psychiatric exam: Normal Affect, Normal Mood - Skin Skin Exam: Dry, Intact, Normal Color, Warm Assessment and Plan - Assessment and Plan (Free Text) Plan: 77yo male with history of MS, [place] s/p 2 stents, hypothyroidism, hydrocele, COPD, HTN, HLD, atrial fibrillation presents with left-sided rib fractures s/p fall 1. Acute left-sided rib fractures 2. shortness of breath in the setting of chronic COPD 3. hypothyroidism 4. Hx of Paroxysmal atrial fibrillation on xarelto 5. hypertension 6. hyperlipidemia 7. Hx of [place] -CT Chest was reviewed and he is currently on dilaudid/percocet for pain control -Physical therapy evaluation/treatment ordered -He is on spiriva, singulair and xopenex for his history of COPD, effient/ lipitor for hx of [place] -He is on lisinopril for hypertension, synthroid for hypothyroidism, xarelto for hx of paroxysmal atrial fibrillation -TCU evaluation pending -Right Foot xray revealed no acute abnormalities -EKG revealed sinus rhythm with 1st degree AV block, possible LAE, LAD, RBBB and old inferior infarct -PT/OT evaluation -OOB to chair -HOB > 30' Patient seen and case discussed/reviewed with attending, Dr. Osborne <Ap Osborne S - Last Filed: 08/29/17 21:43> Objective - Vital Signs/Intake and Output Vital Signs (last 24 hours): Temp Pulse Resp BP Pulse Ox 99.1 F 119 H 20 112/66 91 L 08/29/17 18:00 08/29/17 18:00 08/29/17 18:00 08/29/17 18:00 08/29/17 06:00 - Medications Medications: Current Medications Acetaminophen (Tylenol 325mg Tab) 650 mg PO Q6H PRN PRN Reason: Fever >100.4 F Atorvastatin Calcium (Lipitor) 40 mg PO QAM [facility] Last Admin: 08/29/17 12:13 Dose: 40 mg Bisacodyl (Dulcolax) 10 mg RC DAILY PRN PRN Reason: constipation Bupropion HCl (Wellbutrin) 100 mg PO DAILY [facility] Last Admin: 08/29/17 12:13 Dose: 100 mg Cholecalciferol (Vitamin D) 1,000 intlu PO DAILY [facility] Guaifenesin (Robitussin) 100 mg PO Q4H PRN PRN Reason: Cough Hydromorphone HCl (Dilaudid) 1 mg IVP Q4H PRN PRN Reason: Pain, severe (8-10) Last Admin: 08/29/17 20:36 Dose: 1 mg Ceftriaxone Sodium (Rocephin 1 Gram Ivpb) 1 gm in 100 mls @ 100 mls/hr IVPB DAILY [facility] PRN Reason: Protocol Last Admin: 08/29/17 12:53 Dose: 100 mls/hr Azithromycin (Zithromax 500mg In Ns) 500 mg in 250 mls @ 167 mls/hr IVPB DAILY [facility] PRN Reason: Protocol Last Admin: 08/29/17 12:54 Dose: 167 mls/hr Levalbuterol HCl (Xopenex) 0.63 mg IH [id number] [facility] Last Admin: 08/29/17 19:41 Dose: 0.63 mg Levothyroxine Sodium (Synthroid) 175 mcg PO DAILY [facility] Last Admin: 08/28/17 12:38 Dose: 175 mcg Lisinopril (Zestril) 5 mg PO DAILY [facility] Last Admin: 08/29/17 12:13 Dose: 5 mg Mirtazapine (Remeron) 15 mg PO HS [facility] Last Admin: 08/28/17 21:02 Dose: 15 mg Montelukast Sodium (Singulair) 10 mg PO HS [facility] Last Admin: 08/28/17 21:02 Dose: 10 mg Oxycodone/Acetaminophen (Percocet 5/325 Mg Tab) 1.5 tab PO Q4H PRN PRN Reason: Pain, moderate (4-7) Stop: 08/31/17 12:56 Polyethylene Glycol (Miralax) 17 gm PO BID [facility] Last Admin: 08/29/17 17:24 Dose: Not Given Rivaroxaban (Xarelto) 10 mg PO DAILY [facility] PRN Reason: Protocol Last Admin: 08/29/17 12:13 Dose: 10 mg Tiotropium [place] (Spiriva) 18 mcg IH DAILY [facility] Last Admin: 08/29/17 11:55 Dose: 18 mcg Venlafaxine HCl (Effexor Xr) 75 mg PO DAILY [facility] Last Admin: 08/29/17 12:12 Dose: 75 mg - Labs Labs: 08/29/17 06:00 08/29/17 06:00 Assessment and Plan - Assessment and Plan (Free Text) Plan: Pt seen and examined. I have reviewed the note of the medical director/head team physician and agree with it. I have discussed the assessment and plan with the resident. I have reviewed the patient's labs and medications. Pt with L rib fractures. He is using narcotics for pain control. Pt was advised to use incentive spirometry. He is on Neb for his COPD. Will await PT evaluation and see if the pt can go to TCU.
[2017-08-29] MEDS: POLYETHYLENE GLYCOL 3350 17 GM/Dose PACKET PO SCH ×2 (11:54→17:24)
[2017-08-29] MEDS: Tiotropium 18 mcg Cap For Inhalation IH SCH (11:55)
[2017-08-29] MEDS ORDERED: cefTRIAXone 1 gm 1 GM/100 ML BAG IVPB SCH (12:00)
[2017-08-29] MEDS ORDERED: guaiFENesin 100 mg/5 ml Syrup UD PO PRN (12:07)
[2017-08-29] MEDS: Venlafaxine 75 mg ER Cap PO SCH (12:12)
[2017-08-29] MEDS: Azithromycin 500MG/NS 250ml 500 MG/250 ML BAG IVPB SCH (12:54)
[2017-08-29] MEDS ORDERED: HYDROmorphone 1 mg/ml ISec IVP STA (13:15)
[2017-08-30] MEDS: HYDROmorphone 1 mg/ml ISec IVP PRN ×6 (00:09→20:45)
[2017-08-30] MEDS: Levalbuterol 0.63 MG/3 ML Inhal Soln UD IH SCH ×4 (01:10→20:04)
[2017-08-30 06:31] LABS: BASO # 0.04 K/mm3 (0.0-2.0); BASO % 0.2 % (0.0-3.0); EOS % 0.2 % (1.5-5.0); GRAN # 17.4 (1.4-6.5); HEMOGLOBIN 11.9 g/dL (14.0-18.0); LYMPH # 3.4 (1.2-3.4); LYMPH % 15.2 % (22.0-35.0); MEAN CELL VOLUME 85.5 fl (80.0-105.0); MEAN CORPUSCULAR HEMOGLOBIN 27.8 pg (25.0-35.0); MEAN CORPUSCULAR HGB CONC 32.5 g/dl (31.0-37.0); MEAN PLATELET VOLUME 9.1 fl (7.0-11.0); MONO # 1.4 (0.1-0.6); MONO % 6.4 % (1.0-6.0); RBC 4.28 10^6/uL (3.5-6.1); RED CELL DISTRIBUTION WIDTH 15.4 % (11.5-14.5); WHITE BLOOD COUNT 22.3 10^3/ul (4.5-11.0)
[2017-08-30 07:14] LABS: ALB/GLOB RATIO 1.1 (1.1-1.8); ALBUMIN 3.6 g/dL (3.0-4.8)
--- NOTE | 2017-08-30 09:14 | CP.PCM.PN ---
<Derek Briggs - Last Filed: 08/30/17 09:14> Subjective - Date & Time of Evaluation Date of Evaluation: 08/30/17 Time of Evaluation: 09:11 - Subjective Subjective: Medicine progress note for Dr. Osborne's service - Aracelis Briggs PGY3 Patient seen and examined at bedside this morning. No acute overnight events or new complaints reported. He is in pain due to the rib fractures however is receiving dilaudid/percocet for pain control. He was advised to use the incentive spirometer. Discussed that he likely has a PNA due to poor respiratory effort. Presently denies chest pain, palpitations, SOB. Objective - Vital Signs/Intake and Output Vital Signs (last 24 hours): Temp Pulse Resp BP Pulse Ox 98.2 F 98 H 20 105/58 L 90 L 08/30/17 08:54 08/30/17 08:54 08/30/17 08:54 08/30/17 08:54 08/30/17 08:54 - Medications Medications: Current Medications Acetaminophen (Tylenol 325mg Tab) 650 mg PO Q6H PRN PRN Reason: Fever >100.4 F Atorvastatin Calcium (Lipitor) 40 mg PO QAM [facility] Last Admin: 08/29/17 12:13 Dose: 40 mg Bisacodyl (Dulcolax) 10 mg RC DAILY PRN PRN Reason: constipation Bupropion HCl (Wellbutrin) 100 mg PO DAILY [facility] Last Admin: 08/29/17 12:13 Dose: 100 mg Cholecalciferol (Vitamin D) 1,000 intlu PO DAILY [facility] Guaifenesin (Robitussin) 100 mg PO Q4H PRN PRN Reason: Cough Hydromorphone HCl (Dilaudid) 1 mg IVP Q4H PRN PRN Reason: Pain, severe (8-10) Last Admin: 08/30/17 05:56 Dose: 1 mg Azithromycin (Zithromax 500mg In Ns) 500 mg in 250 mls @ 167 mls/hr IVPB DAILY [facility] PRN Reason: Protocol Last Admin: 08/29/17 12:54 Dose: 167 mls/hr Cefepime HCl (Maxipime 2gm) 2 gm in 100 mls @ 100 mls/hr IVPB Q24H [facility] PRN Reason: Protocol Stop: 09/04/17 10:01 Sodium Chloride (Sodium Chloride 0.9%) 1,000 mls @ 100 mls/hr IV .Q10H [facility] Levalbuterol HCl (Xopenex) 0.63 mg IH [id number] [facility] Last Admin: 08/30/17 07:29 Dose: 0.63 mg Levothyroxine Sodium (Synthroid) 175 mcg PO DAILY [facility] Last Admin: 08/28/17 12:38 Dose: 175 mcg Lisinopril (Zestril) 5 mg PO DAILY [facility] Last Admin: 08/29/17 12:13 Dose: 5 mg Mirtazapine (Remeron) 15 mg PO HS [facility] Last Admin: 08/29/17 21:38 Dose: 15 mg Montelukast Sodium (Singulair) 10 mg PO HS [facility] Last Admin: 08/29/17 21:38 Dose: 10 mg Oxycodone/Acetaminophen (Percocet 5/325 Mg Tab) 1.5 tab PO Q4H PRN PRN Reason: Pain, moderate (4-7) Stop: 08/31/17 12:56 Polyethylene Glycol (Miralax) 17 gm PO BID [facility] Last Admin: 08/29/17 17:24 Dose: Not Given Rivaroxaban (Xarelto) 10 mg PO DAILY [facility] PRN Reason: Protocol Last Admin: 08/29/17 12:13 Dose: 10 mg Tiotropium [place] (Spiriva) 18 mcg IH DAILY [facility] Last Admin: 08/29/17 11:55 Dose: 18 mcg Venlafaxine HCl (Effexor Xr) 75 mg PO DAILY [facility] Last Admin: 08/29/17 12:12 Dose: 75 mg - Labs Labs: 08/30/17 05:45 08/30/17 05:45 - Constitutional Appears: No Acute Distress - Head Exam Head Exam: ATRAUMATIC, NORMAL INSPECTION, NORMOCEPHALIC - Eye Exam Eye Exam: EOMI, PERRL - ENT Exam ENT Exam: Mucous Membranes Moist - Neck Exam Neck Exam: Normal Inspection - Respiratory Exam Respiratory Exam: Decreased Breath Sounds. absent: Rales, Rhonchi, Wheezes - Cardiovascular Exam Cardiovascular Exam: RRR, +S1, +S2. absent: Gallop, JVD, Rubs - GI/Abdominal Exam GI & Abdominal Exam: Soft. absent: Distended, Firm, Guarding, Rigid, Tenderness , Rebound - Extremities Exam Extremities Exam: Normal Inspection. absent: Pedal Edema - Neurological Exam Neurological Exam: Alert, Awake, CN II-XII Intact, Oriented x3 - Psychiatric Exam Psychiatric exam: Normal Affect, Normal Mood - Skin Skin Exam: Dry, Intact, Normal Color, Warm Assessment and Plan - Assessment and Plan (Free Text) Plan: 77yo male with history of MS, [place] s/p 2 stents, hypothyroidism, hydrocele, COPD, HTN, HLD, atrial fibrillation presents with left-sided rib fractures s/p fall 1. Acute left-sided rib fractures 2. Community acquired pneumonia 3. Acute kidney injury 4. shortness of breath in the setting of chronic COPD 5. hypothyroidism 6. Hx of Paroxysmal atrial fibrillation on xarelto 7. hypertension 8. hyperlipidemia 9. Hx of [place] -Leukocytosis concerning for PNA; started on rocephin/azithromycin for abx coverage -Pulmonary and ID consulted -Started on IVF hydration due to elevated creatinine -Robitussin PRN for cough, tylenol PRN for fevers -Incentive spirometry -Oral hygeine -CT Chest was reviewed and he is currently on dilaudid/percocet for pain control -He is on spiriva, singulair and xopenex for his history of COPD, effient/ lipitor for hx of [place] -He is on lisinopril for hypertension, synthroid for hypothyroidism, xarelto for hx of paroxysmal atrial fibrillation -Right Foot xray revealed no acute abnormalities -EKG revealed sinus rhythm with 1st degree AV block, possible LAE, LAD, RBBB and old inferior infarct -PT/OT evaluation -OOB to chair -HOB > 30' Patient seen and case discussed/reviewed with attending, Dr. Osborne <Ap Osborne S - Last Filed: 09/01/17 08:40> Objective - Vital Signs/Intake and Output Vital Signs (last 24 hours): Temp Pulse Resp BP Pulse Ox 97.9 F 102 H 20 134/78 95 09/01/17 06:00 09/01/17 06:00 09/01/17 06:00 09/01/17 06:00 09/01/17 06:00 Intake and Output: 09/01/17 09/01/17 06:59 18:59 Intake Total 300 Balance 300 - Medications Medications: Current Medications Acetaminophen (Tylenol 325mg Tab) 650 mg PO Q6H PRN PRN Reason: Fever >100.4 F Albuterol/Ipratropium (Duoneb 3 Mg/0.5 Mg (3 Ml) Ud) 3 ml IH Q3 PRN PRN Reason: Cough and congestion Atorvastatin Calcium (Lipitor) 40 mg PO QAM [facility] Last Admin: 08/31/17 09:59 Dose: 40 mg Bisacodyl (Dulcolax) 10 mg RC DAILY PRN PRN Reason: constipation Bupropion HCl (Wellbutrin) 100 mg PO DAILY [facility] Last Admin: 08/31/17 10:03 Dose: 100 mg Cholecalciferol (Vitamin D) 1,000 intlu PO DAILY [facility] Last Admin: 08/31/17 10:03 Dose: 1,000 intlu Furosemide (Lasix) 20 mg IVP DAILY [facility] Guaifenesin (Robitussin) 100 mg PO Q4H PRN PRN Reason: Cough Last Admin: 08/30/17 21:22 Dose: 100 mg Hydromorphone HCl (Dilaudid) 1 mg IVP Q3H PRN PRN Reason: Pain, moderate (4-7) Last Admin: 09/01/17 05:32 Dose: 1 mg Azithromycin (Zithromax 500mg In Ns) 500 mg in 250 mls @ 167 mls/hr IVPB DAILY [facility] PRN Reason: Protocol Last Admin: 08/31/17 10:04 Dose: 167 mls/hr Cefepime HCl (Maxipime 2gm) 2 gm in 100 mls @ 100 mls/hr IVPB Q24H [facility] PRN Reason: Protocol Stop: 09/04/17 10:01 Last Admin: 08/31/17 09:59 Dose: 100 mls/hr Sodium Chloride (Sodium Chloride 0.9%) 1,000 mls @ 100 mls/hr IV .Q10H [facility] Last Admin: 08/30/17 10:32 Dose: 100 mls/hr Levalbuterol HCl (Xopenex) 0.63 mg IH [id number] [facility] Last Admin: 09/01/17 08:04 Dose: 0.63 mg Levothyroxine Sodium (Synthroid) 175 mcg PO DAILY [facility] Last Admin: 08/31/17 10:03 Dose: 175 mcg Lisinopril (Zestril) 5 mg PO DAILY [facility] Last Admin: 08/31/17 10:03 Dose: 5 mg Mirtazapine (Remeron) 15 mg PO HS [facility] Last Admin: 08/31/17 21:02 Dose: 15 mg Montelukast Sodium (Singulair) 10 mg PO HS [facility] Last Admin: 08/31/17 21:02 Dose: 10 mg Morphine Sulfate (Morphine Extended Release Tab) 15 mg PO Q12 [facility] Last Admin: 08/31/17 21:02 Dose: 15 mg Polyethylene Glycol (Miralax) 17 gm PO BID [facility] Last Admin: 08/31/17 17:28 Dose: 17 gm Rivaroxaban (Xarelto) 10 mg PO DAILY [facility] PRN Reason: Protocol Last Admin: 08/31/17 10:03 Dose: 10 mg Tiotropium Vera (Spiriva) 18 mcg IH DAILY [facility] Last Admin: 08/31/17 10:00 Dose: 18 mcg Venlafaxine HCl (Effexor Xr) 75 mg PO DAILY [facility] Last Admin: 08/31/17 09:59 Dose: 75 mg - Labs Labs: 08/31/17 07:00 08/31/17 07:00 Assessment and Plan - Assessment and Plan (Free Text) Plan: Pt seen and examined. This is a late entry. I have reviewed the note of the medical record coder and agree with it. I have discussed the assessment and plan with the resident. I have reviewed the patient's labs and medications. Pt has an elevated WCC and is on Abx. He continues to have pain in his ribs at the area of his rib fractures. He is on Neb treatments. He is getting PT and being followed by ID and Pulmonary. He is using narcotics for pain.
[2017-08-30] MEDS: Oxycodone/Acetaminophen 5/325 mg Tab PO PRN ×2 (09:27→15:03)
[2017-08-30] MEDS: Cefepime IV 2 gm in NS 2 GM/100 ML BAG IVPB SCH (10:20)
[2017-08-30] MEDS: Azithromycin 500MG/NS 250ml 500 MG/250 ML BAG IVPB SCH (10:20)
--- NOTE | 2017-08-30 10:25 | RAD ---
Date of service: 08/30/2017 HISTORY: elevated WCC COMPARISON: 03/04/2017 TECHNIQUE: Chest PA and lateral FINDINGS: LUNGS: No active pulmonary disease. PLEURA: Chronic pleural thickening CARDIOVASCULAR: Mild cardiomegaly OSSEOUS STRUCTURES: No significant abnormalities. VISUALIZED UPPER ABDOMEN: Normal. OTHER FINDINGS: None. IMPRESSION: No active disease.
[2017-08-30] MEDS: Cholecalciferol 1,000 INTLU TAB PO SCH (10:32)
[2017-08-30] MEDS: Sodium Chloride 0.9% 1,000 ML IV SCH (10:32)
[2017-08-30] MEDS: POLYETHYLENE GLYCOL 3350 17 GM/Dose PACKET PO SCH ×2 (10:32→17:09)
[2017-08-30] MEDS: Venlafaxine 75 mg ER Cap PO SCH (10:32)
[2017-08-30] MEDS: Tiotropium 18 mcg Cap For Inhalation IH SCH (10:32)
[2017-08-30] MEDS: Levothyroxine 175 MCG TAB PO SCH (10:36)
--- NOTE | 2017-08-30 13:50 | CON ---
DATE: 08/30/2017 PULMONARY CONSULTATION HISTORY OF PRESENT ILLNESS: We were asked by Dr. Bosch, enforcement officer to evaluate and treat this 77 years old man who was admitted to [facility] with chief complaint of cough, fatigue, and chest pain. His past medical history is positive for MS with right-sided muscle weakness, history of coronary artery disease, history of myocardial infarction, status post 2 stents, hypothyroidism, chronic obstructive pulmonary disease, hypertension. He presented to emergency room after suffering a fall. He reported that he was leaving a movie theater and he slipped and fell on his back and left buttocks. He denied loss of consciousness. Subsequently, he went home with Percocet. He continued to experience pain with shortness of breath and decided to go to emergency room. The chest CT revealed nondisplaced fractures of the left posterior 6th to 10th ribs with no pneumothorax and no pleural effusions. COPD findings were noted as well. There were some increased makings versus infiltrates at both bases and he was started on antibiotics as for possible bibasilar pneumonia. SOCIAL HISTORY: Former heavy smoker quit 15 years ago, social drinker. No IV drugs. FAMILY HISTORY: Coronary artery disease in the father. ALLERGIES: NO KNOWN ALLERGIES. REVIEW OF SYSTEMS: Review of systems was conducted by reviewing all sources. CONSTITUTIONAL: The patient is in pain from rib fractures. PULMONARY: Positive for shortness of breath and COPD. CARDIOVASCULAR: Negative chest pain, negative palpitations. GI: No history of nausea, vomiting, or diarrhea. MUSCULOSKELETAL: History of MS with right-sided muscle weakness. : History of BPH. The rest of the systems were reviewed and found to be negative. PHYSICAL EXAMINATION: GENERAL: He is awake, alert, in some pain, but no acute distress. HEENT: Head: Normocephalic and atraumatic. NECK: Supple with no jugular vein distentions. No adenopathy. RESPIRATORY: Diminished breath sounds at the both bases with few rhonchi. No crackles. No wheezing. CARDIOVASCULAR: S1, S2. No S3. Regular. GI: Soft, nontender. No organomegaly. EXTREMITIES: No pedal edema. No cyanosis. SKIN: No acute skin rash. NEUROLOGIC: No focal deficits. VITAL SIGNS: Temperature is 98.5, pulse 86, respirations 20, blood pressure 95/48, and pulse oximetry is 93% on room air. INITIAL LABORATORY DATA: WBC is elevated at 21.8, hemoglobin 13.8, and platelet count is 295,000. His electrolytes are normal. Blood sugar is elevated at 155. ASSESSMENT: 1. Status post fall. 2. Acute left-sided rib fractures. 3. Exacerbation of chronic obstructive pulmonary disease. 4. Hypothyroidism. PLAN: I have reviewed the CT scan of the chest personally in addition to rib fractures. There are areas of fibrosis or infiltration at both lung bases. I am not sure this represents an acute pneumonic process; however, with elevated white count and an abnormal CT scan of the chest, chronic obstructive pulmonary disease, treatment with Maxipime and azithromycin is in order. Nebulizer treatment was started already. The patient is not in acute distress. We will continue with current intervention as well as enough pain relief, so patient can take deep breath and work with incentive spirometry which is important to prevent atelectasis. We will follow closely. Merlin Flaherty MD
--- NOTE | 2017-08-30 14:59 | CP.PCM.CON ---
History of Present Illness - History of Present Illness History of Present Illness: 77 year old male with PMH of multiple sclerosis, CAD S/P PCI, hypothyroidism, COPD, HTN, dyslipidemia, S/P right inguinal hernia repair, S/P appendectomy, significant smoking history came in to [facility] [place] after he sustained a fal after watching in a movie theater, injuring the left side of his chest. CT chest was done in the ED which is showing fractured ribs. He is also found to have leukocytosis and CT Chest is showing bibasilar opacities. The patient has cough and mild SOB. He denies fever or chills, no nausea or vomiting, no chest pain, no rhinorrhea, no sore throat, no abdominal pain, no diarrhea, no dysuria. Infectious Diseases consult is requested to further evaluate and manage. Review of Systems - Review of Systems All systems: reviewed and no additional remarkable complaints except (as per HPI ) Past Patient History - Infectious Disease Hx of Infectious Diseases: None - Tetanus Immunizations Tetanus Immunization: Unknown - Past Medical History & Family History Past Medical History?: Yes - Past Social History Smoking Status: Former Smoker - CARDIAC Hx Congestive Heart Failure: Yes ([place], s/p 2 stents) Hx Hypercholesterolemia: Yes Hx Hypertension: Yes - PULMONARY Hx Chronic Obstructive Pulmonary Disease (COPD): Yes - NEUROLOGICAL Hx Paralysis: No - HEENT Hx HEENT Problems: Yes Other/Comment: Left [place] - RENAL Hx Chronic Kidney Disease: Yes - ENDOCRINE/METABOLIC Hx Hypothyroidism: Yes - HEMATOLOGICAL/ONCOLOGICAL Hx Blood Transfusions: Yes - INTEGUMENTARY Hx Dermatological Problems: Yes Other/Comment: dermatitis - MUSCULOSKELETAL/RHEUMATOLOGICAL Hx Musculoskeletal Disorders: Yes - GASTROINTESTINAL Hx Gastrointestinal Disorders: Yes Hx Gastroesophageal Reflux: Yes - GENITOURINARY/GYNECOLOGICAL Hx Genitourinary Disorders: Yes Hx Prostate Problems: Yes (BPH) Other/Comment: Urgency in urination. Erectile Dysfunction. - PSYCHIATRIC Hx Emotional Abuse: No Hx Physical Abuse: No Hx Substance Use: No - SURGICAL HISTORY Hx Appendectomy: Yes Hx Cardiac Catheterization: Yes Hx Orthopedic Surgery: Yes Other/Comment: ex-lap, right elbow repair, left elbow rotator cuff repair 2015 - ANESTHESIA Hx Anesthesia Reactions: Yes ("BLEEDING FROM AIRWAY USED") Hx Malignant Hyperthermia: No Meds Allergies/Adverse Reactions: Allergies Allergy/AdvReac Type Severity Reaction Status Date / Time tape AdvReac REDNESS Uncoded 08/28/17 03:47 - Medications Medications: Current Medications Acetaminophen (Tylenol 325mg Tab) 650 mg PO Q6H PRN PRN Reason: Fever >100.4 F Atorvastatin Calcium (Lipitor) 40 mg PO QAM [facility] Last Admin: 08/29/17 12:13 Dose: 40 mg Bisacodyl (Dulcolax) 10 mg RC DAILY PRN PRN Reason: constipation Bupropion HCl (Wellbutrin) 100 mg PO DAILY [facility] Last Admin: 08/29/17 12:13 Dose: 100 mg Cholecalciferol (Vitamin D) 1,000 intlu PO DAILY [facility] Guaifenesin (Robitussin) 100 mg PO Q4H PRN PRN Reason: Cough Hydromorphone HCl (Dilaudid) 1 mg IVP Q4H PRN PRN Reason: Pain, severe (8-10) Last Admin: 08/30/17 05:56 Dose: 1 mg Ceftriaxone Sodium (Rocephin 1 Gram Ivpb) 1 gm in 100 mls @ 100 mls/hr IVPB DAILY [facility] PRN Reason: Protocol Last Admin: 08/29/17 12:53 Dose: 100 mls/hr Azithromycin (Zithromax 500mg In Ns) 500 mg in 250 mls @ 167 mls/hr IVPB DAILY [facility] PRN Reason: Protocol Last Admin: 08/29/17 12:54 Dose: 167 mls/hr Levalbuterol HCl (Xopenex) 0.63 mg IH [id number] [facility] Last Admin: 08/30/17 01:10 Dose: 0.63 mg Levothyroxine Sodium (Synthroid) 175 mcg PO DAILY [facility] Last Admin: 08/28/17 12:38 Dose: 175 mcg Lisinopril (Zestril) 5 mg PO DAILY [facility] Last Admin: 08/29/17 12:13 Dose: 5 mg Mirtazapine (Remeron) 15 mg PO HS [facility] Last Admin: 08/29/17 21:38 Dose: 15 mg Montelukast Sodium (Singulair) 10 mg PO HS [facility] Last Admin: 08/29/17 21:38 Dose: 10 mg Oxycodone/Acetaminophen (Percocet 5/325 Mg Tab) 1.5 tab PO Q4H PRN PRN Reason: Pain, moderate (4-7) Stop: 08/31/17 12:56 Polyethylene Glycol (Miralax) 17 gm PO BID [facility] Last Admin: 08/29/17 17:24 Dose: Not Given Rivaroxaban (Xarelto) 10 mg PO DAILY [facility] PRN Reason: Protocol Last Admin: 08/29/17 12:13 Dose: 10 mg Tiotropium Pur[place] (Spiriva) 18 mcg IH DAILY [facility] Last Admin: 08/29/17 11:55 Dose: 18 mcg Venlafaxine HCl (Effexor Xr) 75 mg PO DAILY [facility] Last Admin: 08/29/17 12:12 Dose: 75 mg Physical Exam - Constitutional Appears: Non-toxic, Chronically Ill - Head Exam Head Exam: NORMAL INSPECTION - ENT Exam ENT Exam: Mucous Membranes Moist - Neck Exam Neck exam: Negative for: Meningismus - Respiratory Exam Respiratory Exam: Decreased Breath Sounds - Cardiovascular Exam Cardiovascular Exam: +S1, +S2 - GI/Abdominal Exam GI & Abdominal Exam: Soft. absent: Tenderness Results - Vital Signs Recent Vital Signs: Last Vital Signs Temp 99.1 F 08/29/17 18:00 Pulse 119 H 08/29/17 18:00 Resp 20 08/29/17 18:00 BP 112/66 08/29/17 18:00 Pulse Ox 91 L 08/29/17 06:00 - Labs Result Diagrams: 08/30/17 05:45 08/30/17 05:45 Labs: Laboratory Results - last 24 hr 08/29/17 08/29/17 08/29/17 06:00 06:00 06:00 WBC 27.8 H* D RBC 4.65 Hgb 13.1 L Hct 39.6 L MCV 85.2 MCH 28.2 MCHC 33.1 RDW 15.1 H Plt Count 304 MPV 9.3 Gran % 75.8 H Lymph % (Auto) 16.6 L [place] % (Auto) 6.5 H Eos % (Auto) 0.8 L Baso % (Auto) 0.3 Gran # 21.04 H Lymph # (Auto) 4.6 H [place] # (Auto) 1.8 H Eos # (Auto) 0.2 Baso # (Auto) 0.07 Sodium 141 Potassium 4.3 Chloride 104 Carbon Dioxide 22 Anion Gap 20 BUN 30 H Creatinine 1.5 Est GFR ( Amer) 55 Est GFR (Non-Af Amer) 45 Random Glucose 86 Calcium 9.0 Total Bilirubin 1.0 AST 29 ALT 34 Alkaline Phosphatase 121 Total Protein 7.7 Total Protein (PEP) 6.7 Albumin 4.1 Globulin 3.6 Albumin/Globulin Ratio 1.1 Procalcitonin 08/29/17 08/30/17 12:00 05:45 WBC 22.3 H RBC 4.28 Hgb 11.9 L Hct 36.6 L MCV 85.5 MCH 27.8 MCHC 32.5 RDW 15.4 H Plt Count 266 MPV 9.1 Gran % 78.0 H Lymph % (Auto) 15.2 L [place] % (Auto) 6.4 H Eos % (Auto) 0.2 L Baso % (Auto) 0.2 Gran # 17.40 H Lymph # (Auto) 3.4 [place] # (Auto) 1.4 H Eos # (Auto) 0.0 Baso # (Auto) 0.04 Sodium Potassium Chloride Carbon Dioxide Anion Gap BUN Creatinine Est GFR ( Amer) Est GFR (Non-Af Amer) Random Glucose Calcium Total Bilirubin AST ALT Alkaline Phosphatase Total Protein Total Protein (PEP) Albumin Globulin Albumin/Globulin Ratio Procalcitonin 0.44 Assessment & Plan - Assessment and Plan (Free Text) Plan: Assessment systemic inflammatory response syndrome, probably stress reaction with acute rib fractures after a fall, R/O due to bibasilar HCAP, R/O acute bronchitis multiple sclerosis CAD S/P PCI hypothyroidism COPD HTN dyslipidemia S/P right inguinal hernia repair S/P appendectomy significant smoking history Plan started on Cefepime and Zithromax and will follow up blood cx; reviewed CT chest showing bibasilar airspace disease; follow up PCT as well will monitor clinically
[2017-08-31] MEDS: HYDROmorphone 1 mg/ml ISec IVP PRN ×5 (00:26→23:25)
[2017-08-31] MEDS: Levalbuterol 0.63 MG/3 ML Inhal Soln UD IH SCH ×6 (01:57→19:02)
[2017-08-31] MEDS: Oxycodone/Acetaminophen 5/325 mg Tab PO PRN ×2 (02:49→12:13)
[2017-08-31 08:07] LABS: ALBUMIN 3.4 g/dL (3.0-4.8); CALCIUM 8.6 mg/dL (8.4-10.5)
[2017-08-31 08:19] LABS: BASO % 0.2 % (0.0-3.0); EOS % 0.9 % (1.5-5.0); GRAN # 15.73 (1.4-6.5); GRAN % 79.6 % (50.0-68.0); HEMOGLOBIN 11.6 g/dL (14.0-18.0); LYMPH # 2.4 (1.2-3.4); LYMPH % 12.3 % (22.0-35.0); MEAN CELL VOLUME 87.1 fl (80.0-105.0); MEAN CORPUSCULAR HEMOGLOBIN 28.2 pg (25.0-35.0); MEAN CORPUSCULAR HGB CONC 32.3 g/dl (31.0-37.0); MEAN PLATELET VOLUME 10.4 fl (7.0-11.0); MONO # 1.4 (0.1-0.6); RBC 4.12 10^6/uL (3.5-6.1); RED CELL DISTRIBUTION WIDTH 15.9 % (11.5-14.5); WHITE BLOOD COUNT 19.8 10^3/ul (4.5-11.0)
[2017-08-31 08:20] LABS: BASO # 0.03 K/mm3 (0.0-2.0); EOS # 0.2 (0.0-0.7)
[2017-08-31] MEDS ORDERED: HYDROmorphone 0.5 mg/0.5 ml ISec IVP STA (09:32)
[2017-08-31] MEDS: Cefepime IV 2 gm in NS 2 GM/100 ML BAG IVPB SCH (09:59)
[2017-08-31] MEDS: Venlafaxine 75 mg ER Cap PO SCH (09:59)
[2017-08-31] MEDS: POLYETHYLENE GLYCOL 3350 17 GM/Dose PACKET PO SCH ×2 (10:00→17:28)
[2017-08-31] MEDS: Tiotropium 18 mcg Cap For Inhalation IH SCH (10:00)
[2017-08-31] MEDS: Levothyroxine 175 MCG TAB PO SCH (10:03)
[2017-08-31] MEDS: Cholecalciferol 1,000 INTLU TAB PO SCH (10:03)
[2017-08-31] MEDS: Azithromycin 500MG/NS 250ml 500 MG/250 ML BAG IVPB SCH (10:04)
[2017-08-31] MEDS ORDERED: Acetylcysteine 20% Inhal Soln (4ml) IH STA (11:35)
[2017-08-31 12:45] LABS: PH,URINE 5.5 (4.7-8.0); URINE BILIRUBIN NEGATIVE (NEGATIVE); URINE BLOOD TRACE-LYSED (NEGATIVE); URINE GLUCOSE (UA) NEGATIVE (NEGATIVE); URINE LEUKOCYTE ESTERASE NEGATIVE Leu/uL (NEGATIVE); URINE PROTEIN 30 mg/dL (<30 mg/dL); URINE UROBILINOGEN 0.2 E.U./dL (<1 E.U./dL)
[2017-08-31 12:59] LABS: URINE APPEARANCE SLIGHT-CLOUDY (CLEAR); URINE COLOR YELLOW (YELLOW)
--- NOTE | 2017-08-31 13:49 | PN ---
DATE: 08/31/2017 PULMONARY PROGRESS NOTE SUBJECTIVE: Patient was seen and examined, sitting on the edge of bed. He reports less pain in the left chest, although he is still in pain while taking a deep breath or coughing. He is receiving antibiotics in the form of cefepime and azithromycin and he is on inhalation therapy with levalbuterol as well as Spiriva as well as Singular in the form of pill. PHYSICAL EXAMINATION: VITAL SIGNS: Temperature is 97.9, pulse 100, respirations 20, pulse oximetry 90% on room air, blood pressure 102/60. HEENT: Examination of head, normocephalic and atraumatic. NECK: Supple. There is no jugular vein distention. CARDIOVASCULAR: S1, S2. No S3, regular. PULMONARY: Good bilateral breath sounds with a few scattered rhonchi at both lung bases. No wheezing. GASTROINTESTINAL: Soft, nontender. No organomegaly. EXTREMITIES: No pedal edema. No cyanosis. MUSCULOSKELETAL: There is tenderness along the left lower chest to palpation. SKIN: No acute skin rash. NEUROLOGIC: Limited at present time. LABORATORY DATA: Reviewed. His WBC is 19.8, hemoglobin of 11.6, platelet count is 230,000. ASSESSMENT: 1. Status post fall. 2. Left-sided rib fracture. 3. Bronchial asthma, chronic. 4. Multiple sclerosis. PLAN: I have reviewed the latest chest x-ray that reveals good expansion of both lungs: There is no apparent atelectasis, which is main concern when several ribs were fractured and the patient is receiving nebulizer treatment and incentive spirometry, I will recommend to increase the frequency of incentive spirometry. His WBCs are still elevated. The cause is not completely clear. We will follow closely. Merlin Flaherty MD
--- NOTE | 2017-08-31 13:55 | PN ---
DATE: 08/31/2017 SUBJECTIVE: Patient is in bed in no acute distress. PHYSICAL EXAMINATION: VITAL SIGNS: Temperature is 97, blood pressure is 102/60, respiratory rate of 20. HEENT: Examination is unremarkable. NECK: Supple. LUNGS: Decreased breath sounds. HEART: Normal S1, S2. ABDOMEN: Soft. LAB[place]ATORY [place]: [place] [address], hemoglobin of 11, platelet of 230. Chemistry reveals a BUN of 58, creatinine is 2. Microbiology is noted. Patient had chest x-ray yesterday, no active lung disease. ASSESSMENT AND PLAN: This is a 77-year-old male with multiple sclerosis, coronary artery disease, hypothyroidism, chronic obstructive lung disease, hypertension, dyslipidemia, status post right inguinal hernia repair, history of appendectomy, admitted with SIRS, systemic inflammatory response syndrome and acute rib fractures after a fall. Patient with multiple sclerosis, on cefepime and Zithromax. Patient does have white count of 19,800, which is improved, on cefepime and Zithromax. We checked on the culture results, unable to find any culture results. We will follow with you. Jak Gray MD
--- NOTE | 2017-08-31 14:30 | RAD ---
Date of service: 08/31/2017 HISTORY: congestion COMPARISON: 08/30/2017 FINDINGS: LUNGS: The lungs are well inflated. There is airspace disease in the right lower lobe. No focal consolidation in the left lung. PLEURA: No significant pleural effusion identified, no pneumothorax apparent. CARDIOVASCULAR: Normal. OSSEOUS STRUCTURES: No significant abnormalities. VISUALIZED UPPER ABDOMEN: Normal. OTHER FINDINGS: None. IMPRESSION: Airspace disease in the right lower lobe concerning for pneumonia. Follow-up PA and lateral radiographs are recommended for definitive evaluation.
[2017-08-31] MEDS ORDERED: HYDROmorphone 1 mg/ml ISec IVP SCH (18:00)
[2017-08-31] MEDS ORDERED: Morphine 15 mg SR Tab PO SCH (22:00)
--- NOTE | 2017-09-01 00:26 | PN ---
DATE: 08/31/2017 HISTORY OF PRESENT ILLNESS: Mr. Dueñas is a 77-year-old male admitted to the hospital after he fell. He has several rib fracture on the left side. Serum protein electrophoresis, immunofixation pending. He is complaining of pain and slight respiratory distress. Currently adding Dilaudid every 4 hour, but pain is well controlled with that. He has a history of COPD, no recent exacerbation, history of hypothyroidism, currently controlled with current medications; coronary artery disease, stable. PAST MEDICAL HISTORY: History of multiple sclerosis, myocardial infarction, hydrocele, hypertension, hearing loss. PAST SURGICAL HISTORY: Inguinal hernia repair, cardiac stenting. SOCIAL HISTORY: Heavy smoker . No history of alcohol abuse. FAMILY HISTORY: Positive for coronary artery disease in father. REVIEW OF SYSTEMS: As per HPI. Rest of 12-point review of systems was reviewed and negative. ALLERGIES: TAPE. PHYSICAL EXAMINATION: GENERAL: Comfortable in bed, in no acute distress. VITAL SIGNS: Temperature 98.5, heart rate is 86 per minute, respiratory rate 20 per minute, blood pressure 95/48, pulse ox is 93% on room air. HEENT: Pallor positive. NECK: No lymphadenopathy. CHEST: Air entry present and equal bilateral. No added sound. CARDIOVASCULAR: S1 and S2 normal. No murmur. No gallop. ABDOMEN: Soft, nontender. No rebound tenderness. EXTREMITY: No edema. ARCHITECTURE TECHNICIAN: Alert and oriented x3. No focal sensory or motor deficits. SKIN: No petechiae, no rash. ASSESSMENT: 1. Left-sided rib fracture. 2. Shortness of breath and chronic obstructive pulmonary disease exacerbation. 3. Hypothyroidism. 4. Hypertension. 5. Leukocytosis. 6. History of atrial fibrillation. 7. Chronic kidney disease, stage III. PLAN: If pain is not controlled with her medication, I will increase her Dilaudid to 2 mg every 3 hour Dilaudid IV, will add the long-acting MS Contin 15 mg p.o. b.i.d. and 20 mg of IV Lasix daily. Stool softeners and on Colace b.i.d. Serum protein electrophoresis and immunofixation is pending. We will follow up on that. Because of rib fracture, suspicious for multiple myeloma. Maddy Wall MD [facility] # [id number]
[2017-09-01] MEDS: Levalbuterol 0.63 MG/3 ML Inhal Soln UD IH SCH ×4 (01:21→19:53)
[2017-09-01] MEDS: HYDROmorphone 1 mg/ml ISec IVP PRN ×6 (02:30→22:47)
[2017-09-01] MEDS: Venlafaxine 75 mg ER Cap PO SCH (09:39)
[2017-09-01] MEDS: Levothyroxine 175 MCG TAB PO SCH ×2 (09:41→22:33)
[2017-09-01] MEDS: Cefepime IV 2 gm in NS 2 GM/100 ML BAG IVPB SCH (09:41)
[2017-09-01] MEDS: POLYETHYLENE GLYCOL 3350 17 GM/Dose PACKET PO SCH ×2 (09:41→22:33)
[2017-09-01] MEDS: Tiotropium 18 mcg Cap For Inhalation IH SCH (09:41)
[2017-09-01] MEDS: Azithromycin 500MG/NS 250ml 500 MG/250 ML BAG IVPB SCH (09:42)
[2017-09-01] MEDS: Cholecalciferol 1,000 INTLU TAB PO SCH ×2 (09:42→22:33)
--- NOTE | 2017-09-01 10:04 | PN ---
DATE: 09/01/2017 PULMONARY PROGRESS NOTE SUBJECTIVE: Patient was seen and examined at bedside. He still is complaining of the left-sided chest discomfort as well as pain on deep inspiration and cough. He is on inhalation treatments as well as double antibiotics with Rocephin and azithromycin. PHYSICAL EXAMINATION: VITAL SIGNS: His temperature is 97, pulse 90, respirations 20, pulse oximetry is 100% on nasal cannula which was changed to Venturi mask, currently is receiving respiratory treatment. HEAD: Normocephalic and atraumatic. NECK: Supple with no jugular vein distention. CARDIOVASCULAR: S1, S2. No S3, irregular. PULMONARY: Diminished breath sounds, left more than right lung base with a few rhonchi. No wheezing. GI: Soft, nontender. No organomegaly. EXTREMITIES: No pedal edema. No cyanosis. SKIN: No acute skin rash. NEUROLOGIC: Limited at present time. ASSESSMENT: 1. Status post fall. 2. Left-sided rib fractures. 3. Rule out pneumonia, both lung bases. 4. Leukocytosis. PLAN: I have reviewed his today's lab work. His WBCs are elevated at 19.8, hemoglobin of 11.6. His urine is relatively clear. The patient should continue on empiric antibiotics and pain medications to help him cough, otherwise he is candidate for developing atelectasis. He is working with incentive spirometry. Overall, making progress. Merlin Flaherty MD MTDD
[2017-09-01] MEDS: Morphine 30 mg SR Tab PO SCH ×2 (10:28→21:54)
--- NOTE | 2017-09-01 16:31 | PN ---
DATE: 09/01/2017 SUBJECTIVE: The patient is in room 376, bed 1. The patient is in bed, in no acute distress, nontoxic. No fevers and chills. The patient seen earlier this morning. PHYSICAL EXAMINATION: VITAL SIGNS: Temperature is 97, blood pressure is 130/70, respiratory rate of 18. HEENT: Unremarkable. NECK: Supple. LUNGS: Decreased breath sounds. HEART: Normal S1, S2. ABDOMEN: Soft, nontender. LABORATORY EXAMINATION: Reveals a white count of 19,800, hemoglobin 11, platelets of 230. Chemistries reveal a BUN of 58, creatinine of 2. Urinalysis is noted. Microbiology reveals the blood cultures are no growth, urine cultures no growth. Review of orders reveals the patient to be on cefepime. ASSESSMENT AND PLAN: A 77-year-old male seen earlier today in 376, bed 1 with history of multiple sclerosis, coronary artery disease, hypothyroidism, chronic obstructive lung disease, hypertension, dyslipidemia, status post right inguinal hernia repair, history of appendectomy, admitted with systemic inflammatory response syndrome and acute rib fracture status post fall, multiple sclerosis, on cefepime and Zithromax. Review of orders reveals the cefepime to be active, but the Zithromax has been discontinued by pharmacy. The patient's white count is 19,800. The patient's EKG reveals QTc of 492. We will start doxycycline for atypical coverage and MRSA coverage. We will follow the WBCs. Jak Gray MD
--- NOTE | 2017-09-01 19:49 | PN ---
DATE: 09/01/2017 SUBJECTIVE: He is sitting in chair, screaming in pain, episodic in nature on the left side of the chest. He had multiple rib fractures, status post fall. Serum protein electrophoresis pending. He was started on long-acting MS Contin 15 mg p.o. b.i.d. He is also getting IV Dilaudid. He said his pain is not under control. No fever, no cough with expectoration. REVIEW OF SYSTEMS: As per HPI. Rest of 12-point review of systems reviewed negative. PHYSICAL EXAMINATION: GENERAL: In distress due to pain with deep inspiration. VITAL SIGNS: Temperature 98.6, heart rate 90 per minute, respiratory rate 18 per minute, blood pressure 100/70, pulse ox is 98% on room air. HEENT: Pallor positive. NECK: No lymphadenopathy. CHEST: Air entry present and equal bilaterally. No added sounds. CARDIOVASCULAR: S1 and S2 normal. No murmur. No gallop. ABDOMEN: Soft, nontender. No hepatosplenomegaly. EXTREMITIES: No edema. SKIN: No petechiae. No rash. DIRECTOR OF EXTENSION WORK: Alert and oriented x3. No focal sensory or motor deficit. LABORATORY DATA: White count 19.8, hemoglobin 11.6, hematocrit 35.9, and platelets 230. Sodium 136, potassium 4.8. Creatinine 2. SPEP immunofixation pending. MEDICATIONS: Tylenol 650 every 6 hours p.r.n., DuoNeb, Lipitor 40 mg daily, Dulcolax daily, Wellbutrin 400 mg daily, cefepime every 24 hours, doxycycline, Lasix 20 mg daily, Dilaudid every 3 hours p.r.n. 1 mg, Xopenex 0.3 inhalation, lisinopril 5 mg daily, Remeron 15 mg p.o. at bedtime, MiraLax 17 g p.o. b.i.d., Xarelto 10 mg daily, Effexor 75 mg p.o. daily. ASSESSMENT: 1. Severe pain, chest pain. 2. Left-sided rib fracture status post fall. 3. Hypertension. 4. Leukocytosis. 5. Hypothyroidism. 6. Atrial fibrillation. 7. Chronic kidney disease stage III. PLAN: We will increase the MS Contin to 30 mg p.o. b.i.d. Continue Dilaudid p.r.n. He is on psych medications also, which might be contributing to excruciating pain and dramatic symptoms. Continue stool softeners. Follow up on serum protein electrophoresis, rule out multiple myeloma. He has leukocytosis, white count is 19,000, it was 21,000. Currently on IV antibiotic for pneumonia, chronic kidney disease, creatinine of 2, stable. Maddy Wall MD
--- NOTE | 2017-09-01 22:40 | CON ---
DATE: 09/01/2017 NEUROLOGY CONSULTATION REASON FOR CONSULTATION: MS flare-up. HISTORY OF PRESENT ILLNESS: The patient is a 77-year-old male with history of multiple sclerosis who has been asked for evaluation of possible flare-up of MS. The patient has MS for several years. The patient has been taking intravenous Tysabri every few months. The patient is being seen by a local neurologist. As per the patient, the patient was walking after watching a movie and his foot caught in a sidewalk and he fell on the left side and hit his left side of the body on the floor. He did not have any loss of consciousness. He denies any double vision. Denies any new numbness or new weakness in the arms or legs. He does complain of pain in the left side of the chest. REVIEW OF SYSTEMS: Denies any headache, dizziness. Positive pain in the left side of the chest wall. Denies any abdominal pain, constipation, diarrhea, dysuria, pyuria, cough with sputum production. PAST MEDICAL HISTORY: Includes multiple sclerosis, COPD, hypercholesterolemia, hypothyroidism. MEDICATIONS: At home includes Wellbutrin, venlafaxine, Spiriva, Restoril, Xarelto, Effient, Singulair, Remeron, Zestril, Synthroid, Xopenex, Dulcolax p.r.n., Lipitor and vitamin C. ALLERGIES: NO KNOWN DRUG ALLERGIES. SOCIAL HISTORY: He is a former smoker. He denies current use of smoking, denies use of alcohol or illicit drugs. FAMILY HISTORY: Reviewed and noncontributory to the case. PHYSICAL EXAMINATION GENERAL: The patient is an elderly male, sitting in no acute distress. VITAL SIGNS: His blood pressure is 134/78, heart rate is 102 per minute, breathing at the rate of 16 per minute, temperature is 97.9 degrees Fahrenheit. HEENT: Head is normocephalic, atraumatic. NECK: Supple. There are no carotid bruit. LUNGS: Clear. CARDIOVASCULAR: S1 and S2 audible. No murmurs. ABDOMEN: Soft, nontender, bowel sounds present. NEUROLOGIC: Mental status: The patient is awake, alert, oriented to time, place, and person. Speech is fluent. Naming and repetition is normal. Memory and cognition are intact. Cranial nerve examination; pupils are 3 mm bilaterally, reactive to light. Visual zimmerman are full. Extraocular movements are intact. There is no facial asymmetry. Palate is upgoing bilaterally and tongue is midline. Motor examination; tone is normal. Power is 5/5 bilaterally in all extremities. Reflexes +1 and symmetrical in the upper extremities and hyperreflexia in the lower extremities. Tone is increased in the lower extremities. Sensory examination; intact to soft touch, pinprick, vibration. Gait is slightly unsteady. LABORATORY DATA: Labs reviewed, showed WBC of 19.8, hemoglobin of 11.6, hematocrit of 35.9, and platelets of 230. His sodium is 136, potassium 4.8, chloride 103, carbon dioxide content 20, BUN of 58, creatinine 2 and glucose of 106. IMPRESSION: 1. Multiple sclerosis by history, no evidence of exacerbation. 2. Gait dysfunction. 3. Left-sided rib fracture. 4. History of atrial fibrillation. RECOMMENDATIONS: 1. There is no evidence that the patient has any acute exacerbation of his multiple sclerosis. 2. The patient is on physical therapy for gait imbalance. 3. Continue pain management for his left-sided rib fractures. 4. Please continue supportive care and other treatment. No further neurologic recommendation at present. Please call Neurology as needed. Thank you for the opportunity to participate in the care of this patient. Kaitlin Martel MD
[2017-09-02] MEDS: HYDROmorphone 1 mg/ml ISec IVP PRN ×5 (01:38→16:51)
[2017-09-02] MEDS: Levalbuterol 0.63 MG/3 ML Inhal Soln UD IH SCH ×4 (02:44→19:50)
[2017-09-02] MEDS: Albuterol-Ipratrop 3 mg / 0.5 (3 ml) UD IH PRN (06:05)
[2017-09-02 08:05] LABS: BASO # 0.09 K/mm3 (0.0-2.0); BASO % 0.5 % (0.0-3.0); EOS # 0.4 (0.0-0.7); EOS % 2.4 % (1.5-5.0); GRAN # 11.3 (1.4-6.5); HEMOGLOBIN 10.1 g/dL (14.0-18.0); LYMPH # 3.9 (1.2-3.4); LYMPH % 23.2 % (22.0-35.0); MEAN CELL VOLUME 84.6 fl (80.0-105.0); MEAN CORPUSCULAR HEMOGLOBIN 27.7 pg (25.0-35.0); MEAN CORPUSCULAR HGB CONC 32.8 g/dl (31.0-37.0); MEAN PLATELET VOLUME 8.7 fl (7.0-11.0); MONO # 1.2 (0.1-0.6); MONO % 6.9 % (1.0-6.0); RBC 3.64 10^6/uL (3.5-6.1); RED CELL DISTRIBUTION WIDTH 15.5 % (11.5-14.5); WHITE BLOOD COUNT 16.9 10^3/ul (4.5-11.0)
[2017-09-02 08:16] LABS: ALBUMIN 3.2 g/dL (3.0-4.8); CALCIUM 9.3 mg/dL (8.4-10.5)
--- NOTE | 2017-09-02 08:34 | PN ---
DATE: 09/02/2017 PULMONARY NOTE SUBJECTIVE: The patient appears comfortable this morning. He is not short of breath at rest. PHYSICAL EXAMINATION: VITAL SIGNS: Temperature is 97.9, pulse is 97, respirations 18/20, blood pressure 118/73. Oxygen saturation on Ventimask is 94%. HEENT: Normocephalic, atraumatic. No JVD. CARDIOVASCULAR: Positive S1, S2. No S3 gallop. LUNGS: Decreased breath sounds at the bases. Mild bilateral rhonchi. No wheezing. EXTREMITIES: No clubbing, cyanosis or edema. Calves are nontender to palpation. GI: Abdomen is soft, nontender and nondistended. Bowel sounds are positive. SKIN: No acute rash. NEUROLOGIC: Limited at the present time. IMPRESSION: 1. Multiple left-sided rib fractures, status post fall. 2. Chronic obstructive pulmonary disease. 3. Mild bronchospasm. 4. Probable atelectasis at the bases. 5. Multiple sclerosis. PLAN: The patient appears comfortable this morning. He is not short of breath at rest. He does state to feeling better overall. On physical exam, there is mild bronchospasm noted. In addition, there is no significant alveolar-arterial gradient. I will continue with the current pulmonary medications for now. I did discuss the case with the night nurse at length. The night nurse stated that the patient has been improving, and was out of bed yesterday. I will also continue with the incentive spirometer. Clinical status of the patient is certainly improved - compared to his initial presentation. However, his overall status/prognosis does remain somewhat guarded. I will discuss the above with the attending physician this morning. Amanuel Riggins MD [facility]
--- NOTE | 2017-09-02 10:23 | CP.PCM.PN ---
<Derek Briggs - Last Filed: 09/02/17 10:19> Subjective - Date & Time of Evaluation Date of Evaluation: 09/02/17 Time of Evaluation: 10:19 - Subjective Subjective: Medicine progress note for Dr. Osborne's service - Aracelis Briggs PGY3 Patient seen and examined at bedside this morning. No acute overnight events or new complaints reported. Reports pain due to the rib fractures. Denies chest pain, palpitations. He is on ventimask due to SOB. Objective - Vital Signs/Intake and Output Vital Signs (last 24 hours): Temp Pulse Resp BP Pulse Ox 97.9 F 97 H 20 118/73 94 L 09/02/17 08:52 09/02/17 08:52 09/02/17 08:52 09/02/17 08:52 09/02/17 08:52 Intake and Output: 09/02/17 09/02/17 06:59 18:59 Intake Total 720 Balance 720 - Medications Medications: Current Medications Acetaminophen (Tylenol 325mg Tab) 650 mg PO Q6H PRN PRN Reason: Fever >100.4 F Albuterol/Ipratropium (Duoneb 3 Mg/0.5 Mg (3 Ml) Ud) 3 ml IH Q3 PRN PRN Reason: Cough and congestion Last Admin: 09/02/17 06:05 Dose: 3 ml Atorvastatin Calcium (Lipitor) 40 mg PO QAM [facility] Last Admin: 09/01/17 09:40 Dose: 40 mg Bisacodyl (Dulcolax) 10 mg RC DAILY PRN PRN Reason: constipation Last Admin: 09/01/17 09:39 Dose: 10 mg Bupropion HCl (Wellbutrin) 100 mg PO DAILY [facility] Last Admin: 09/01/17 09:42 Dose: 100 mg Cholecalciferol (Vitamin D) 1,000 intlu PO DAILY [facility] Last Admin: 09/01/17 22:33 Dose: Not Given Doxycycline Hyclate (Doryx) 100 mg PO Q12 [facility] PRN Reason: Protocol Stop: 09/09/17 22:01 Last Admin: 09/01/17 21:50 Dose: 100 mg Furosemide (Lasix) 20 mg IVP DAILY [facility] Last Admin: 09/01/17 09:40 Dose: 20 mg Guaifenesin (Robitussin) 100 mg PO Q4H PRN PRN Reason: Cough Last Admin: 08/30/17 21:22 Dose: 100 mg Hydromorphone HCl (Dilaudid) 1 mg IVP Q3H PRN PRN Reason: Pain, moderate (4-7) Last Admin: 09/02/17 08:30 Dose: 1 mg Cefepime HCl (Maxipime 2gm) 2 gm in 100 mls @ 100 mls/hr IVPB Q24H [facility] PRN Reason: Protocol Stop: 09/04/17 10:01 Last Admin: 09/01/17 09:41 Dose: 100 mls/hr Sodium Chloride (Sodium Chloride 0.9%) 1,000 mls @ 100 mls/hr IV .Q10H [facility] Last Admin: 08/30/17 10:32 Dose: 100 mls/hr Levalbuterol HCl (Xopenex) 0.63 mg IH [id number] [facility] Last Admin: 09/02/17 07:26 Dose: 0.63 mg Levothyroxine Sodium (Synthroid) 175 mcg PO DAILY [facility] Last Admin: 09/01/17 22:33 Dose: Not Given Lisinopril (Zestril) 5 mg PO DAILY [facility] Last Admin: 09/01/17 09:42 Dose: 5 mg Methylprednisolone (Solu-Medrol) 30 mg IVP DAILY [facility] Mirtazapine (Remeron) 15 mg PO HS [facility] Last Admin: 09/01/17 21:50 Dose: 15 mg Montelukast Sodium (Singulair) 10 mg PO HS [facility] Last Admin: 09/01/17 21:54 Dose: 10 mg Morphine Sulfate (Morphine Extended Release Tab) 30 mg PO Q12 [facility] Last Admin: 09/01/17 21:54 Dose: 30 mg Polyethylene Glycol (Miralax) 17 gm PO BID [facility] Last Admin: 09/01/17 22:33 Dose: Not Given Rivaroxaban (Xarelto) 10 mg PO DAILY [facility] PRN Reason: Protocol Last Admin: 09/01/17 09:42 Dose: 10 mg Tiotropium [place] (Spiriva) 18 mcg IH DAILY [facility] Last Admin: 09/01/17 09:41 Dose: 18 mcg Venlafaxine HCl (Effexor Xr) 75 mg PO DAILY [facility] Last Admin: 09/01/17 09:39 Dose: 75 mg - Labs Labs: 09/02/17 07:50 09/02/17 07:50 - Constitutional Appears: No Acute Distress - Head Exam Head Exam: ATRAUMATIC, NORMAL INSPECTION, NORMOCEPHALIC - Eye Exam Eye Exam: EOMI Pupil Exam: PERRL - ENT Exam ENT Exam: Mucous Membranes Moist - Respiratory Exam Respiratory Exam: Rhonchi, Wheezes. absent: Rales Additional comments: left-sided rib pain 2/2 fractures - Cardiovascular Exam Cardiovascular Exam: RRR, +S1, +S2. absent: Gallop, Rubs - GI/Abdominal Exam GI & Abdominal Exam: Soft. absent: Distended, Firm, Rigid, Tenderness, Rebound - Extremities Exam Extremities Exam: absent: Pedal Edema - Neurological Exam Neurological Exam: Alert, Awake, CN II-XII Intact, Oriented x3 - Skin Skin Exam: Dry, Intact, Normal Color, Warm Assessment and Plan - Assessment and Plan (Free Text) Plan: 77yo male with history of MS, NC s/p 2 stents, hypothyroidism, hydrocele, COPD, HTN, HLD, atrial fibrillation presents with left-sided rib fractures s/p fall 1. Acute left-sided non-displaced ribs 6-10 fractures 2. Community acquired pneumonia 3. Acute kidney injury 4. shortness of breath in the setting of chronic COPD 5. hypothyroidism 6. Hx of Paroxysmal atrial fibrillation on xarelto 7. hypertension 8. hyperlipidemia 9. Hx of NC -Patient is currently on cefepime and doxycylcine for ABX coverage due to concerns for PNA/atelectasis; Pulmonology and ID have been consulted -He was started on IV solumedrol due to shortness of breath with underlying chronic COPD -He is on dilaudid/morphine for pain control -IVF hydration for JOSIAH -Robitussin PRN for cough, tylenol PRN for fevers -Incentive spirometry -Oral hygeine -CT Chest was reviewed -He is on spiriva, singulair and xopenex for his history of COPD, effient/ lipitor for hx of NC -He is on lisinopril for hypertension, synthroid for hypothyroidism, xarelto for hx of paroxysmal atrial fibrillation -Right Foot xray revealed no acute abnormalities -EKG revealed sinus rhythm with 1st degree AV block, possible LAE, LAD, RBBB and old inferior infarct -PT/OT evaluation -OOB to chair -HOB > 30' Patient seen and case discussed/reviewed with attending, Dr. Osborne <Ap Osborne - Last Filed: 09/02/17 22:18> Objective - Vital Signs/Intake and Output Vital Signs (last 24 hours): Temp Pulse Resp BP Pulse Ox 97.1 F L 96 H 20 124/80 95 09/02/17 18:00 09/02/17 18:00 09/02/17 18:00 09/02/17 18:00 09/02/17 18:00 Intake and Output: 09/02/17 09/03/17 18:59 06:59 Intake Total 760 Output Total 350 Balance 410 - Medications Medications: Current Medications Acetaminophen (Tylenol 325mg Tab) 650 mg PO Q6H PRN PRN Reason: Fever >100.4 F Albuterol/Ipratropium (Duoneb 3 Mg/0.5 Mg (3 Ml) Ud) 3 ml IH Q3 PRN PRN Reason: Cough and congestion Last Admin: 09/02/17 06:05 Dose: 3 ml Atorvastatin Calcium (Lipitor) 40 mg PO QAM [facility] Last Admin: 09/02/17 10:37 Dose: 40 mg Bisacodyl (Dulcolax) 10 mg RC DAILY PRN PRN Reason: constipation Last Admin: 09/01/17 09:39 Dose: 10 mg Bupropion HCl (Wellbutrin) 100 mg PO DAILY [facility] Last Admin: 09/02/17 10:38 Dose: 100 mg Cholecalciferol (Vitamin D) 1,000 intlu PO DAILY [facility] Last Admin: 09/02/17 10:38 Dose: 1,000 intlu Doxycycline Hyclate (Doryx) 100 mg PO Q12 [facility] PRN Reason: Protocol Stop: 09/09/17 22:01 Last Admin: 09/02/17 22:00 Dose: 100 mg Furosemide (Lasix) 20 mg IVP DAILY [facility] Last Admin: 09/01/17 09:40 Dose: 20 mg Guaifenesin (Robitussin) 100 mg PO Q4H PRN PRN Reason: Cough Last Admin: 08/30/17 21:22 Dose: 100 mg Hydromorphone HCl (Dilaudid) 1 mg IVP Q3H PRN PRN Reason: Pain, moderate (4-7) Last Admin: 09/02/17 16:51 Dose: 1 mg Cefepime HCl (Maxipime 2gm) 2 gm in 100 mls @ 100 mls/hr IVPB Q24H [facility] PRN Reason: Protocol Stop: 09/04/17 10:01 Last Admin: 09/02/17 10:58 Dose: 100 mls/hr Sodium Chloride (Sodium Chloride 0.9%) 1,000 mls @ 100 mls/hr IV .Q10H [facility] Last Admin: 08/30/17 10:32 Dose: 100 mls/hr Daptomycin 480 mg/ Sodium (Chloride) 100 mls @ 200 mls/hr IV Q24H [facility] Stop: 09/07/17 11:01 Last Admin: 09/02/17 11:00 Dose: 200 mls/hr Levalbuterol HCl (Xopenex) 0.63 mg IH [id number] [facility] Last Admin: 09/02/17 19:50 Dose: 0.63 mg Levothyroxine Sodium (Synthroid) 175 mcg PO DAILY [facility] Last Admin: 09/02/17 10:38 Dose: 175 mcg Lisinopril (Zestril) 5 mg PO DAILY [facility] Last Admin: 09/01/17 09:42 Dose: 5 mg Methylprednisolone (Solu-Medrol) 30 mg IVP DAILY [facility] Last Admin: 09/02/17 10:37 Dose: 30 mg Mirtazapine (Remeron) 15 mg PO HS [facility] Last Admin: 09/02/17 22:02 Dose: 15 mg Montelukast Sodium (Singulair) 10 mg PO HS [facility] Last Admin: 09/02/17 22:03 Dose: 10 mg Morphine Sulfate (Morphine Extended Release Tab) 30 mg PO Q12 [facility] Last Admin: 09/02/17 22:01 Dose: 30 mg Polyethylene Glycol (Miralax) 17 gm PO BID [facility] Last Admin: 09/02/17 17:34 Dose: Not Given Rivaroxaban (Xarelto) 10 mg PO DAILY [facility] PRN Reason: Protocol Last Admin: 09/02/17 10:38 Dose: 10 mg Tiotropium [place] (Spiriva) 18 mcg IH DAILY [facility] Last Admin: 09/02/17 10:38 Dose: 18 mcg Venlafaxine HCl (Effexor Xr) 75 mg PO DAILY [facility] Last Admin: 09/02/17 10:36 Dose: 75 mg - Labs Labs: 09/02/17 07:50 09/02/17 07:50 Assessment and Plan - Assessment and Plan (Free Text) Plan: Pt seen and examined. I have reviewed the note of the center medical director and agree with it. I have discussed the assessment and plan with the resident. I have reviewed the patient's labs and medications. Pt with infiltrate in L chest on CXR and is on Abx. He is being followed by pulm and ID. TCU evaluation pending. He is on narcotics for pain.
[2017-09-02] MEDS: Venlafaxine 75 mg ER Cap PO SCH (10:36)
[2017-09-02] MEDS: POLYETHYLENE GLYCOL 3350 17 GM/Dose PACKET PO SCH ×2 (10:37→17:34)
[2017-09-02] MEDS: Morphine 30 mg SR Tab PO SCH ×2 (10:37→22:01)
[2017-09-02] MEDS: MethylPREDNISolone 40 mg Vial IVP SCH (10:37)
[2017-09-02] MEDS: Cholecalciferol 1,000 INTLU TAB PO SCH (10:38)
[2017-09-02] MEDS: Tiotropium 18 mcg Cap For Inhalation IH SCH (10:38)
[2017-09-02] MEDS: Levothyroxine 175 MCG TAB PO SCH (10:38)
[2017-09-02] MEDS: Cefepime IV 2 gm in NS 2 GM/100 ML BAG IVPB SCH (10:58)
[2017-09-02] MEDS ORDERED: DAPTOmycin 500 mg Inj (Cubicin) IV SCH (11:00)
--- NOTE | 2017-09-02 14:59 | CP.PCM.PN ---
Subjective - Date & Time of Evaluation Date of Evaluation: 09/02/17 Time of Evaluation: 11:20 - Subjective Subjective: Patient still with pain on the left side of the chest, still with pain on the abrasions on the left arm and elbow. Objective - Vital Signs/Intake and Output Vital Signs (last 24 hours): Temp Pulse Resp BP Pulse Ox 97.9 F 97 H 20 118/73 94 L 09/02/17 08:52 09/02/17 08:52 09/02/17 08:52 09/02/17 08:52 09/02/17 08:52 Intake and Output: 09/02/17 09/02/17 06:59 18:59 Intake Total 720 Balance 720 - Medications Medications: Current Medications Acetaminophen (Tylenol 325mg Tab) 650 mg PO Q6H PRN PRN Reason: Fever >100.4 F Albuterol/Ipratropium (Duoneb 3 Mg/0.5 Mg (3 Ml) Ud) 3 ml IH Q3 PRN PRN Reason: Cough and congestion Last Admin: 09/02/17 06:05 Dose: 3 ml Atorvastatin Calcium (Lipitor) 40 mg PO QAM [facility] Last Admin: 09/01/17 09:40 Dose: 40 mg Bisacodyl (Dulcolax) 10 mg RC DAILY PRN PRN Reason: constipation Last Admin: 09/01/17 09:39 Dose: 10 mg Bupropion HCl (Wellbutrin) 100 mg PO DAILY [facility] Last Admin: 09/01/17 09:42 Dose: 100 mg Cholecalciferol (Vitamin D) 1,000 intlu PO DAILY [facility] Last Admin: 09/01/17 22:33 Dose: Not Given Doxycycline Hyclate (Doryx) 100 mg PO Q12 [facility] PRN Reason: Protocol Stop: 09/09/17 22:01 Last Admin: 09/01/17 21:50 Dose: 100 mg Furosemide (Lasix) 20 mg IVP DAILY [facility] Last Admin: 09/01/17 09:40 Dose: 20 mg Guaifenesin (Robitussin) 100 mg PO Q4H PRN PRN Reason: Cough Last Admin: 08/30/17 21:22 Dose: 100 mg Hydromorphone HCl (Dilaudid) 1 mg IVP Q3H PRN PRN Reason: Pain, moderate (4-7) Last Admin: 09/02/17 08:30 Dose: 1 mg Cefepime HCl (Maxipime 2gm) 2 gm in 100 mls @ 100 mls/hr IVPB Q24H [facility] PRN Reason: Protocol Stop: 09/04/17 10:01 Last Admin: 09/01/17 09:41 Dose: 100 mls/hr Sodium Chloride (Sodium Chloride 0.9%) 1,000 mls @ 100 mls/hr IV .Q10H [facility] Last Admin: 08/30/17 10:32 Dose: 100 mls/hr Levalbuterol HCl (Xopenex) 0.63 mg IH [id number] [facility] Last Admin: 09/02/17 07:26 Dose: 0.63 mg Levothyroxine Sodium (Synthroid) 175 mcg PO DAILY [facility] Last Admin: 09/01/17 22:33 Dose: Not Given Lisinopril (Zestril) 5 mg PO DAILY [facility] Last Admin: 09/01/17 09:42 Dose: 5 mg Methylprednisolone (Solu-Medrol) 30 mg IVP DAILY [facility] Mirtazapine (Remeron) 15 mg PO HS [facility] Last Admin: 09/01/17 21:50 Dose: 15 mg Montelukast Sodium (Singulair) 10 mg PO HS [facility] Last Admin: 09/01/17 21:54 Dose: 10 mg Morphine Sulfate (Morphine Extended Release Tab) 30 mg PO Q12 [facility] Last Admin: 09/01/17 21:54 Dose: 30 mg Polyethylene Glycol (Miralax) 17 gm PO BID [facility] Last Admin: 09/01/17 22:33 Dose: Not Given Rivaroxaban (Xarelto) 10 mg PO DAILY [facility] PRN Reason: Protocol Last Admin: 09/01/17 09:42 Dose: 10 mg Tiotropium [place] (Spiriva) 18 mcg IH DAILY [facility] Last Admin: 09/01/17 09:41 Dose: 18 mcg Venlafaxine HCl (Effexor Xr) 75 mg PO DAILY [facility] Last Admin: 09/01/17 09:39 Dose: 75 mg - Labs Labs: 09/02/17 07:50 09/02/17 07:50 - Constitutional Appears: Chronically Ill - Head Exam Head Exam: NORMAL INSPECTION - Respiratory Exam Respiratory Exam: Decreased Breath Sounds - Cardiovascular Exam Cardiovascular Exam: +S1, +S2 - GI/Abdominal Exam GI & Abdominal Exam: Soft. absent: Tenderness Assessment and Plan - Assessment and Plan (Free Text) Plan: Assessment sepsis due to bibasilar HCAP, also with Staph aureus bacteremia, consider skin as the source, R/O other sources (Such as heart valves) multiple sclerosis CAD S/P PCI hypothyroidism COPD HTN dyslipidemia S/P right inguinal hernia repair S/P appendectomy significant smoking history Plan continue Cefepime and Doxycycline (Day 4) and will add Daptomycin and check CPK level, 2D echo - will also repeat blood cx will continue to monitor clinically
[2017-09-02 19:01] LABS: ALBUMIN (PEP) 3.4 g/dL (3.8-4.8); ALPHA-1-GLOBULIN (PEP) 0.5 g/dL (0.2-0.3)
[2017-09-03] MEDS: HYDROmorphone 1 mg/ml ISec IVP PRN ×3 (00:30→17:06)
[2017-09-03] MEDS: Levalbuterol 0.63 MG/3 ML Inhal Soln UD IH SCH ×4 (01:16→19:38)
[2017-09-03] MEDS: Sodium Chloride 0.9% 1,000 ML IV SCH (05:36)
[2017-09-03 06:42] LABS: BASO # 0.11 K/mm3 (0.0-2.0); BASO % 0.6 % (0.0-3.0); EOS # 0.1 (0.0-0.7); EOS % 0.3 % (1.5-5.0); GRAN % 74.2 % (50.0-68.0); HEMOGLOBIN 10.8 g/dL (14.0-18.0); LYMPH # 3.4 (1.2-3.4); MEAN CELL VOLUME 85.2 fl (80.0-105.0); MEAN CORPUSCULAR HEMOGLOBIN 27.6 pg (25.0-35.0); MEAN CORPUSCULAR HGB CONC 32.4 g/dl (31.0-37.0); MONO # 1.6 (0.1-0.6); MONO % 7.9 % (1.0-6.0); PLATELET COUNT 336 10^3/uL (120.0-450.0); RBC 3.91 10^6/uL (3.5-6.1); RED CELL DISTRIBUTION WIDTH 15.5 % (11.5-14.5); WHITE BLOOD COUNT 19.8 10^3/ul (4.5-11.0)
[2017-09-03 07:04] LABS: ALBUMIN 3.5 g/dL (3.0-4.8); CALCIUM 9.4 mg/dL (8.4-10.5)
--- NOTE | 2017-09-03 08:07 | PN ---
DATE: 09/03/2017 PULMONARY NOTE SUBJECTIVE: The patient appears comfortable this morning. He is not short of breath at rest. OBJECTIVE: VITAL SIGNS (last noted in the computer): Temperature is 97.1, pulse 96, respirations are 18/20, blood pressure 124/80. Last oxygen saturation measured on room air - 95%. HEENT: Normocephalic, atraumatic. No JVD. CARDIOVASCULAR: Positive S1, S2. No S3 gallop. LUNGS: Decreased breath sounds at the bases. Much less rhonchi. No wheezing. EXTREMITIES: No clubbing, cyanosis or edema. Calves are nontender to palpation. GI: Abdomen is soft, nontender and nondistended. Bowel sounds are positive. SKIN: No acute rash. NEUROLOGIC: Exam limited at the present time. IMPRESSION: 1. Multiple left-sided rib fractures, status post fall. 2. Chronic obstructive pulmonary disease. 3. Mild bronchospasm. 4. Probable atelectasis at the bases. 5. Multiple sclerosis. PLAN: The patient appears comfortable this morning. He is not short of breath at rest. He does state to feeling much better overall. On physical exam, there is certainly less bronchospasm noted. In addition, the alveolar-arterial gradient is also much less. I will continue with the current pulmonary medications/nebulizer treatments for now. The patient is also on low-dose intravenous steroids - started yesterday. Clinical status of the patient is significantly improved overall. The patient is reminded to use his incentive spirometer frequently. The patient will also be out of bed as much as possible. I will discuss the above with the attending physician. Amanuel Riggins MD [facility]
[2017-09-03] MEDS: Cefepime IV 2 gm in NS 2 GM/100 ML BAG IVPB SCH (09:07)
[2017-09-03] MEDS: POLYETHYLENE GLYCOL 3350 17 GM/Dose PACKET PO SCH ×2 (09:07→17:06)
[2017-09-03] MEDS: Levothyroxine 175 MCG TAB PO SCH (09:07)
[2017-09-03] MEDS: Venlafaxine 75 mg ER Cap PO SCH (09:07)
[2017-09-03] MEDS: Tiotropium 18 mcg Cap For Inhalation IH SCH (09:08)
[2017-09-03] MEDS: Cholecalciferol 1,000 INTLU TAB PO SCH (09:08)
[2017-09-03] MEDS: Morphine 30 mg SR Tab PO SCH ×2 (09:08→21:46)
[2017-09-03] MEDS: MethylPREDNISolone 40 mg Vial IVP SCH (09:08)
[2017-09-03 09:11] LABS: LYMPHOCYTE 15 % (22.0-35.0); MONOCYTE 5 % (1.0-6.0); MYELOCYTE 2 %; NEUTROPHIL 78 % (50.0-70.0); NUCLEATED RED BLOOD CELL 1 %
--- NOTE | 2017-09-03 11:45 | CARD ---
APPROVED REPORT Date of service: 09/03/2017 EXAM: Two-dimensional and M-mode echocardiogram with Doppler and color Doppler. INDICATION Infection:Rule out subacute bacterial endocarditis 2D DIMENSIONS Left Atrium (2D)3.8 (1.6-4.0cm)IVSd1.7 (0.7-1.1cm) LVDd4.2 (3.9-5.9cm)PWd1.5 (0.7-1.1cm) LVDs3.2 (2.5-4.0cm)FS (%) 24.3 % LVEF (%)48.7 (>50%) M-Mode DIMENSIONS Aortic Root2.60 (2.2-3.7cm)Aortic Cusp Exc.1.20 (1.5-2.0cm) Aortic Valve AoV Peak [id number]/Tono Peak GR.10mmHg Mitral Valve E/A ratio0.0 TDI E/Lateral E'0.0E/Medial E'0.0 Tricuspid Valve TR Peak [id number] [id number] Peak Gr.13mmHg [id number] LEFT VENTRICLE The left ventricle is normal size. There is moderate concentric left ventricular hypertrophy. The systolic function is mildly impaired. RIGHT VENTRICLE The right ventricle is normal size. There is normal right ventricular wall thickness. The right ventricular systolic function is normal. ATRIA The left atrium size is normal. The right atrium size is normal. AORTIC VALVE The aortic valve is moderately thickened. No aortic regurgitation is present. There is no aortic valvular stenosis. MITRAL VALVE The mitral valve is moderately thickened. Mitral regurgitation is trace. There is no mitral valve stenosis. TRICUSPID VALVE The tricuspid valve is normal in structure. GREAT VESSELS The aortic root is normal in size. The IVC is normal in size and collapses >50% with inspiration. PERICARDIAL EFFUSION There is a trace loculated anterior pericardial effusion. <Conclusion> The left ventricle is normal size. There is moderate concentric left ventricular hypertrophy. The systolic function is mildly impaired. The mitral and Aortic valves are moderately thickened, No definite vegitation seen
--- NOTE | 2017-09-03 15:13 | CP.PCM.PN ---
<Derek Briggs - Last Filed: 09/03/17 15:19> Subjective - Date & Time of Evaluation Date of Evaluation: 09/03/17 Time of Evaluation: 15:09 - Subjective Subjective: Medicine progress note for Dr. Osborne's service - Aracelis Briggs PGY3 Patient seen and examined at bedside this morning. No acute overnight events or new complaints reported. He was sitting up off the side of the bed and appears to be doing better. He is off the venti-mask and O2sat has been >90%. He reports improvement in his pain and breathing. He wishes to go to rehab in [place] near his family. Discussed current treatment/plan with him. Denies chest pain, palpitations, SOB. Objective - Vital Signs/Intake and Output Vital Signs (last 24 hours): Temp Pulse Resp BP Pulse Ox 98 F 89 20 141/73 92 L 09/03/17 07:30 09/03/17 07:30 09/03/17 07:30 09/03/17 07:30 09/03/17 07:30 Intake and Output: 09/03/17 09/03/17 06:59 18:59 Intake Total 300 960 Output Total 200 575 Balance 100 385 - Medications Medications: Current Medications Acetaminophen (Tylenol 325mg Tab) 650 mg PO Q6H PRN PRN Reason: Fever >100.4 F Albuterol/Ipratropium (Duoneb 3 Mg/0.5 Mg (3 Ml) Ud) 3 ml IH Q3 PRN PRN Reason: Cough and congestion Last Admin: 09/02/17 06:05 Dose: 3 ml Atorvastatin Calcium (Lipitor) 40 mg PO QAM [facility] Last Admin: 09/03/17 09:07 Dose: 40 mg Bisacodyl (Dulcolax) 10 mg RC DAILY PRN PRN Reason: constipation Last Admin: 09/01/17 09:39 Dose: 10 mg Bupropion HCl (Wellbutrin) 100 mg PO DAILY [facility] Last Admin: 09/03/17 09:07 Dose: 100 mg Cholecalciferol (Vitamin D) 1,000 intlu PO DAILY [facility] Last Admin: 09/03/17 09:08 Dose: 1,000 intlu Doxycycline Hyclate (Doryx) 100 mg PO Q12 [facility] PRN Reason: Protocol Stop: 09/09/17 22:01 Last Admin: 09/03/17 09:08 Dose: 100 mg Furosemide (Lasix) 20 mg IVP DAILY [facility] Last Admin: 09/01/17 09:40 Dose: 20 mg Guaifenesin (Robitussin) 100 mg PO Q4H PRN PRN Reason: Cough Last Admin: 08/30/17 21:22 Dose: 100 mg Hydromorphone HCl (Dilaudid) 1 mg IVP Q3H PRN PRN Reason: Pain, moderate (4-7) Last Admin: 09/03/17 11:03 Dose: 1 mg Cefepime HCl (Maxipime 2gm) 2 gm in 100 mls @ 100 mls/hr IVPB Q24H [facility] PRN Reason: Protocol Stop: 09/04/17 10:01 Last Admin: 09/03/17 09:07 Dose: 100 mls/hr Sodium Chloride (Sodium Chloride 0.9%) 1,000 mls @ 100 mls/hr IV .Q10H [facility] Last Admin: 09/03/17 05:36 Dose: 100 mls/hr Daptomycin 480 mg/ Sodium (Chloride) 100 mls @ 200 mls/hr IV Q24H [facility] Stop: 09/07/17 11:01 Last Admin: 09/03/17 11:07 Dose: 200 mls/hr Levalbuterol HCl (Xopenex) 0.63 mg IH [id number] [facility] Last Admin: 09/03/17 13:30 Dose: 0.63 mg Levothyroxine Sodium (Synthroid) 175 mcg PO DAILY [facility] Last Admin: 09/03/17 09:07 Dose: 175 mcg Lisinopril (Zestril) 5 mg PO DAILY [facility] Last Admin: 09/01/17 09:42 Dose: 5 mg Methylprednisolone (Solu-Medrol) 30 mg IVP DAILY [facility] Last Admin: 09/03/17 09:08 Dose: 30 mg Mirtazapine (Remeron) 15 mg PO HS [facility] Last Admin: 09/02/17 22:02 Dose: 15 mg Montelukast Sodium (Singulair) 10 mg PO HS [facility] Last Admin: 09/02/17 22:03 Dose: 10 mg Morphine Sulfate (Morphine Extended Release Tab) 30 mg PO Q12 [facility] Last Admin: 09/03/17 09:08 Dose: 30 mg Polyethylene Glycol (Miralax) 17 gm PO BID [facility] Last Admin: 09/03/17 09:07 Dose: 17 gm Rivaroxaban (Xarelto) 10 mg PO DAILY [facility] PRN Reason: Protocol Last Admin: 09/03/17 09:08 Dose: 10 mg Tiotropium [place] (Spiriva) 18 mcg IH DAILY [facility] Last Admin: 09/03/17 09:08 Dose: 18 mcg Venlafaxine HCl (Effexor Xr) 75 mg PO DAILY [facility] Last Admin: 09/03/17 09:07 Dose: 75 mg - Labs Labs: 09/03/17 05:45 09/03/17 05:45 - Constitutional Appears: No Acute Distress - Head Exam Head Exam: ATRAUMATIC, NORMAL INSPECTION, NORMOCEPHALIC - Eye Exam Eye Exam: EOMI Pupil Exam: PERRL - ENT Exam ENT Exam: Mucous Membranes Moist - Neck Exam Neck Exam: Normal Inspection - Respiratory Exam Respiratory Exam: Rales Additional comments: bilateral crackles at the bases left-sided rib pain - Cardiovascular Exam Cardiovascular Exam: RRR, +S1, +S2. absent: Gallop, Rubs, Murmur - GI/Abdominal Exam GI & Abdominal Exam: Soft. absent: Distended, Firm, Guarding, Rigid, Tenderness , Rebound - Extremities Exam Extremities Exam: absent: Pedal Edema - Neurological Exam Neurological Exam: Alert, Awake, CN II-XII Intact, Oriented x3 - Psychiatric Exam Psychiatric exam: Normal Affect, Normal Mood - Skin Skin Exam: Dry, Intact, Normal Color, Warm Assessment and Plan - Assessment and Plan (Free Text) Plan: 77yo male with history of MS, PR s/p 2 stents, hypothyroidism, hydrocele, COPD, HTN, HLD, atrial fibrillation presents with left-sided rib fractures s/p fall 1. Acute left-sided non-displaced ribs 6-10 fractures 2. Healthcare associated pneumonia 3. MRSA bacteremia 4. Acute kidney injury, resolved 5. shortness of breath in the setting of chronic COPD 6. hypothyroidism 7. Hx of Paroxysmal atrial fibrillation on xarelto 8. hypertension 9. hyperlipidemia 10. Hx of PR -Patient is currently on cefepime, doxycylcine and daptomycin for ABX coverage per ID recommendations -One bottle blood culture positive for MRSA and repeats have been negative thus far -An echocardiogram was obtained to rule out vegetations and was reviewed; revealed no definite vegitations with LVEF of 48.7% -He was started on IV solumedrol due to shortness of breath with underlying chronic COPD -He is on dilaudid/morphine for pain control -IVF hydration for JOSIAH; his lasix and lisinopril were also held and JOSIAH is improving/resolved -Robitussin PRN for cough, tylenol PRN for fevers -Incentive spirometry -Oral hygeine -CT Chest was reviewed -He is on spiriva, singulair and xopenex for his history of COPD, effient/ lipitor for hx of PR -He is on lisinopril for hypertension, synthroid for hypothyroidism, xarelto for hx of paroxysmal atrial fibrillation -Right Foot xray revealed no acute abnormalities -EKG revealed sinus rhythm with 1st degree AV block, possible LAE, LAD, RBBB and old inferior infarct -PT/OT evaluation -OOB to chair -HOB > 30' Patient seen and case discussed/reviewed with attending, Dr. Osborne <Ap Osborne S - Last Filed: 09/03/17 18:00> Objective - Vital Signs/Intake and Output Vital Signs (last 24 hours): Temp Pulse Resp BP Pulse Ox 98.4 F 90 20 138/70 92 L 09/03/17 16:43 09/03/17 16:43 09/03/17 16:43 09/03/17 16:43 09/03/17 16:43 Intake and Output: 09/03/17 09/03/17 06:59 18:59 Intake Total 300 960 Output Total 200 575 Balance 100 385 - Medications Medications: Current Medications Acetaminophen (Tylenol 325mg Tab) 650 mg PO Q6H PRN PRN Reason: Fever >100.4 F Albuterol/Ipratropium (Duoneb 3 Mg/0.5 Mg (3 Ml) Ud) 3 ml IH Q3 PRN PRN Reason: Cough and congestion Last Admin: 09/03/17 16:37 Dose: 3 ml Atorvastatin Calcium (Lipitor) 40 mg PO QAM [facility] Last Admin: 09/03/17 09:07 Dose: 40 mg Bisacodyl (Dulcolax) 10 mg RC DAILY PRN PRN Reason: constipation Last Admin: 09/01/17 09:39 Dose: 10 mg Bupropion HCl (Wellbutrin) 100 mg PO DAILY [facility] Last Admin: 09/03/17 09:07 Dose: 100 mg Cholecalciferol (Vitamin D) 1,000 intlu PO DAILY [facility] Last Admin: 09/03/17 09:08 Dose: 1,000 intlu Doxycycline Hyclate (Doryx) 100 mg PO Q12 [facility] PRN Reason: Protocol Stop: 09/09/17 22:01 Last Admin: 09/03/17 09:08 Dose: 100 mg Furosemide (Lasix) 20 mg IVP DAILY [facility] Last Admin: 09/01/17 09:40 Dose: 20 mg Guaifenesin (Robitussin) 100 mg PO Q4H PRN PRN Reason: Cough Last Admin: 08/30/17 21:22 Dose: 100 mg Hydromorphone HCl (Dilaudid) 1 mg IVP Q3H PRN PRN Reason: Pain, moderate (4-7) Last Admin: 09/03/17 17:06 Dose: 1 mg Cefepime HCl (Maxipime 2gm) 2 gm in 100 mls @ 100 mls/hr IVPB Q24H [facility] PRN Reason: Protocol Stop: 09/04/17 10:01 Last Admin: 09/03/17 09:07 Dose: 100 mls/hr Sodium Chloride (Sodium Chloride 0.9%) 1,000 mls @ 100 mls/hr IV .Q10H [facility] Last Admin: 09/03/17 05:36 Dose: 100 mls/hr Daptomycin 480 mg/ Sodium (Chloride) 100 mls @ 200 mls/hr IV Q24H [facility] Stop: 09/07/17 11:01 Last Admin: 09/03/17 11:07 Dose: 200 mls/hr Levalbuterol HCl (Xopenex) 0.63 mg IH [id number] [facility] Last Admin: 09/03/17 13:30 Dose: 0.63 mg Levothyroxine Sodium (Synthroid) 175 mcg PO DAILY [facility] Last Admin: 09/03/17 09:07 Dose: 175 mcg Lisinopril (Zestril) 5 mg PO DAILY [facility] Last Admin: 09/01/17 09:42 Dose: 5 mg Methylprednisolone (Solu-Medrol) 30 mg IVP DAILY [facility] Last Admin: 09/03/17 09:08 Dose: 30 mg Mirtazapine (Remeron) 15 mg PO HS [facility] Last Admin: 09/02/17 22:02 Dose: 15 mg Montelukast Sodium (Singulair) 10 mg PO HS [facility] Last Admin: 09/02/17 22:03 Dose: 10 mg Morphine Sulfate (Morphine Extended Release Tab) 30 mg PO Q12 [facility] Last Admin: 09/03/17 09:08 Dose: 30 mg Polyethylene Glycol (Miralax) 17 gm PO BID [facility] Last Admin: 09/03/17 17:06 Dose: 17 gm Rivaroxaban (Xarelto) 10 mg PO DAILY [facility] PRN Reason: Protocol Last Admin: 09/03/17 09:08 Dose: 10 mg Tiotropium [place] (Spiriva) 18 mcg IH DAILY [facility] Last Admin: 09/03/17 09:08 Dose: 18 mcg Venlafaxine HCl (Effexor Xr) 75 mg PO DAILY [facility] Last Admin: 09/03/17 09:07 Dose: 75 mg - Labs Labs: 09/03/17 05:45 09/03/17 05:45 Assessment and Plan - Assessment and Plan (Free Text) Plan: Pt seen and examined. I have reviewed the note of the medical data entry clerk and agree with it. I have discussed the assessment and plan with the resident. I have reviewed the patient's labs and medications. Pt states his pain is slowly improving. He wants to go to a [facility] facility in [facility] near his sister. He has MRSA in one BCx bottle. I spoke to Dr Gray about the case. Echo was reviewed. Repeat BCx have been negative.
--- NOTE | 2017-09-03 15:23 | CON ---
DATE: 09/03/2017 HISTORY OF PRESENT ILLNESS: This is a 77-year-old white male with past medical history of multiple sclerosis for several years and has been followed by local neurologist. The patient was walking and his foot caught on the sidewalk and fell on the side and fractured the ribs. Called to evaluate the patient. Did not lose consciousness. REVIEW OF THE SYSTEMS: Pain on the left side of the chest wall. PAST MEDICAL HISTORY: Positive medical history of multiple sclerosis, COPD, hypothyroidism. MEDICATIONS: Wellbutrin, Restoril, Xarelto, Remeron, Synthroid. ALLERGIES: NO KNOWN DRUG ALLERGIES. SOCIAL HISTORY: He is an ex smoker. PHYSICAL EXAMINATION: NEUROLOGIC: The patient is awake, orientated to time and place. Speech fluent. Memory intact. Cranial nerves II through XII were tested. Pupils reactive. Extraocular movements intact. No facial asymmetry. Motor examination: Tone normal. The power 5/5. Reflexes 1+. Both plantars downgoing. Sensory appears intact. Gait is slightly unsteady. IMPRESSION: Multiple sclerosis by history. No exacerbation. Has a gait dysfunction. Left-sided rib fracture and history of atrial fibrillation. Continue present management with physical therapy. We will follow up. Familia Longo MD
[2017-09-03] MEDS: Albuterol-Ipratrop 3 mg / 0.5 (3 ml) UD IH PRN (16:37)
[2017-09-04] MEDS: Levalbuterol 0.63 MG/3 ML Inhal Soln UD IH SCH ×4 (01:40→19:55)
[2017-09-04] MEDS: HYDROmorphone 1 mg/ml ISec IVP PRN ×2 (04:08→12:18)
[2017-09-04 07:22] LABS: BASO # 0.17 K/mm3 (0.0-2.0); BASO % 1.1 % (0.0-3.0); EOS % 0.3 % (1.5-5.0); GRAN # 11.62 (1.4-6.5); GRAN % 74.2 % (50.0-68.0); HEMOGLOBIN 10.6 g/dL (14.0-18.0); LYMPH # 2.7 (1.2-3.4); LYMPH % 17.5 % (22.0-35.0); MEAN CELL VOLUME 85.6 fl (80.0-105.0); MEAN CORPUSCULAR HEMOGLOBIN 27.8 pg (25.0-35.0); MEAN CORPUSCULAR HGB CONC 32.5 g/dl (31.0-37.0); MEAN PLATELET VOLUME 8.7 fl (7.0-11.0); MONO # 1.1 (0.1-0.6); MONO % 6.9 % (1.0-6.0); PLATELET COUNT 338 10^3/uL (120.0-450.0); RBC 3.81 10^6/uL (3.5-6.1); RED CELL DISTRIBUTION WIDTH 15.6 % (11.5-14.5); WHITE BLOOD COUNT 15.7 10^3/ul (4.5-11.0)
--- NOTE | 2017-09-04 07:26 | PN ---
DATE: 09/04/2017 PULMONARY NOTE SUBJECTIVE: The patient appears comfortable this morning. He is not short of breath at rest. PHYSICAL EXAMINATION VITAL SIGNS: (Last noted in the computer): Temperature is 98.4, pulse 90, respirations 18/20, blood pressure 138/70. Oxygen saturation on nasal cannula is 92%. HEENT: Normocephalic, atraumatic. No JVD. CARDIOVASCULAR: Positive S1, S2. No S3 gallop. LUNGS: Decreased breath sounds at the bases. Much less/minimal rhonchi. No wheezing. EXTREMITIES: No clubbing, cyanosis or edema. Calves are nontender to palpation. GI: Abdomen is soft, nontender and nondistended. Bowel sounds are positive. SKIN: No acute rash. NEUROLOGIC: Limited at the present time. IMPRESSION: 1. Multiple left-sided rib fractures, status post fall. 2. Chronic obstructive pulmonary disease. 3. Mild bronchospasm. 4. Probable atelectasis at the bases. 5. Multiple sclerosis. PLAN: The patient appears comfortable this morning. He is not short of breath at rest. He does state to feeling much better overall. On physical exam, his bronchospasm continues to resolve. I will continue with the current nebulizer treatments and change to oral steroids this morning. The patient also remains on antibiotic therapy - as per Infectious Disease. I did discuss the case with Dr. Gray this morning. Clinical status of the patient continues to improve. He is using his incentive spirometer, and out of bed as much as possible. The patient is for possible transfer to the Transitional Unit - which I feel is an excellent next step for this patient. I will discuss the above with Dr. Osborne. Amanuel Riggins MD MTDEloy
[2017-09-04 07:44] LABS: ALBUMIN 3.3 g/dL (3.0-4.8); ALT/SGPT 66 U/L (7-56); AST/SGOT 69 U/L (17-59); BLOOD UREA NITROGEN 48 mg/dL (7-21); CALCIUM 9.6 mg/dL (8.4-10.5); GFR AFRICAN-AMERICAN > 60; GFR NON-AFRICAN AMERICAN 53
[2017-09-04] MEDS ORDERED: Sod Polystyrene Sulf 15 gm/60 ml Susp PO ONE (07:47)
--- NOTE | 2017-09-04 07:56 | CP.PCM.PN ---
<Derek Briggs - Last Filed: 09/04/17 10:25> Subjective - Date & Time of Evaluation Date of Evaluation: 09/04/17 Time of Evaluation: 07:53 - Subjective Subjective: Medicine progress note for Dr. Osborne's service - Aracelis Briggs PGY3 Patient seen and examined at bedside this morning. No acute overnight events or new complaints reported. Complained of left-sided rib pain. Currently comfortable on nasal cannula. Discussed workup/plan with patient. CT right lower thigh ordered to evaluate a right anterior thigh mass for potential source of bacteremia. Denies CP, palptiations, SOB. Objective - Vital Signs/Intake and Output Vital Signs (last 24 hours): Temp Pulse Resp BP Pulse Ox 98.4 F 90 20 138/70 92 L 09/03/17 16:43 09/03/17 16:43 09/03/17 16:43 09/03/17 16:43 09/03/17 16:43 Intake and Output: 09/04/17 09/04/17 06:59 18:59 Intake Total 780 Output Total 650 Balance 130 - Medications Medications: Current Medications Acetaminophen (Tylenol 325mg Tab) 650 mg PO Q6H PRN PRN Reason: Fever >100.4 F Albuterol/Ipratropium (Duoneb 3 Mg/0.5 Mg (3 Ml) Ud) 3 ml IH Q3 PRN PRN Reason: Cough and congestion Last Admin: 09/03/17 16:37 Dose: 3 ml Atorvastatin Calcium (Lipitor) 40 mg PO QAM [facility] Last Admin: 09/03/17 09:07 Dose: 40 mg Bisacodyl (Dulcolax) 10 mg RC DAILY PRN PRN Reason: constipation Last Admin: 09/01/17 09:39 Dose: 10 mg Bupropion HCl (Wellbutrin) 100 mg PO DAILY [facility] Last Admin: 09/03/17 09:07 Dose: 100 mg Cholecalciferol (Vitamin D) 1,000 intlu PO DAILY [facility] Last Admin: 09/03/17 09:08 Dose: 1,000 intlu Doxycycline Hyclate (Doryx) 100 mg PO Q12 [facility] PRN Reason: Protocol Stop: 09/09/17 22:01 Last Admin: 09/03/17 21:46 Dose: 100 mg Furosemide (Lasix) 20 mg IVP DAILY [facility] Last Admin: 09/01/17 09:40 Dose: 20 mg Guaifenesin (Robitussin) 100 mg PO Q4H PRN PRN Reason: Cough Last Admin: 08/30/17 21:22 Dose: 100 mg Hydromorphone HCl (Dilaudid) 1 mg IVP Q3H PRN PRN Reason: Pain, moderate (4-7) Last Admin: 09/04/17 04:08 Dose: 1 mg Cefepime HCl (Maxipime 2gm) 2 gm in 100 mls @ 100 mls/hr IVPB Q24H [facility] PRN Reason: Protocol Stop: 09/04/17 10:01 Last Admin: 09/03/17 09:07 Dose: 100 mls/hr Sodium Chloride (Sodium Chloride 0.9%) 1,000 mls @ 100 mls/hr IV .Q10H [facility] Last Admin: 09/03/17 05:36 Dose: 100 mls/hr Daptomycin 480 mg/ Sodium (Chloride) 100 mls @ 200 mls/hr IV Q24H [facility] Stop: 09/07/17 11:01 Last Admin: 09/03/17 11:07 Dose: 200 mls/hr Levalbuterol HCl (Xopenex) 0.63 mg IH [id number] [facility] Last Admin: 09/04/17 07:49 Dose: 0.63 mg Levothyroxine Sodium (Synthroid) 175 mcg PO DAILY [facility] Last Admin: 09/03/17 09:07 Dose: 175 mcg Lisinopril (Zestril) 5 mg PO DAILY [facility] Last Admin: 09/01/17 09:42 Dose: 5 mg Mirtazapine (Remeron) 15 mg PO HS [facility] Last Admin: 09/03/17 21:49 Dose: 15 mg Montelukast Sodium (Singulair) 10 mg PO HS [facility] Last Admin: 09/03/17 21:49 Dose: 10 mg Morphine Sulfate (Morphine Extended Release Tab) 30 mg PO Q12 [facility] Last Admin: 09/03/17 21:46 Dose: 30 mg Polyethylene Glycol (Miralax) 17 gm PO BID [facility] Last Admin: 09/03/17 17:06 Dose: 17 gm Prednisone (Prednisone Tab) 20 mg PO DAILY [facility] Rivaroxaban (Xarelto) 10 mg PO DAILY [facility] PRN Reason: Protocol Last Admin: 09/03/17 09:08 Dose: 10 mg Tiotropium [place] (Spiriva) 18 mcg IH DAILY [facility] Last Admin: 09/03/17 09:08 Dose: 18 mcg Venlafaxine HCl (Effexor Xr) 75 mg PO DAILY [facility] Last Admin: 09/03/17 09:07 Dose: 75 mg - Labs Labs: 09/04/17 07:00 09/04/17 07:00 - Constitutional Appears: No Acute Distress - Head Exam Head Exam: ATRAUMATIC, NORMAL INSPECTION, NORMOCEPHALIC - Eye Exam Eye Exam: EOMI, Normal appearance. absent: Scleral icterus Pupil Exam: PERRL - ENT Exam ENT Exam: Mucous Membranes Moist - Neck Exam Neck Exam: Normal Inspection. absent: Lymphadenopathy, Tenderness, Thyromegaly - Respiratory Exam Respiratory Exam: absent: Clear to Ausculation Bilateral, Rhonchi, Wheezes Additional comments: bilateral crackles at the bases - Cardiovascular Exam Cardiovascular Exam: +S1, +S2. absent: Gallop, JVD, Rubs - GI/Abdominal Exam GI & Abdominal Exam: Soft. absent: Distended, Firm, Guarding, Rigid, Tenderness , Rebound - Extremities Exam Extremities Exam: Normal Inspection. absent: Calf Tenderness, Pedal Edema, Tenderness Additional comments: right anterior thigh mass - Neurological Exam Neurological Exam: Alert, Awake, CN II-XII Intact, Oriented x3 Neuro motor strength exam: Left Upper Extremity: 5, Right Upper Extremity: 5, Left Lower Extremity: 5, Right Lower Extremity: 5 - Psychiatric Exam Psychiatric exam: Normal Affect, Normal Mood - Skin Skin Exam: Dry, Intact, Normal Color, Warm Assessment and Plan - Assessment and Plan (Free Text) Plan: 77yo male with history of MS, CO s/p 2 stents, hypothyroidism, hydrocele, COPD, HTN, HLD, atrial fibrillation presents with left-sided rib fractures s/p fall 1. Acute left-sided non-displaced ribs 6-10 fractures 2. Healthcare associated pneumonia 3. MRSA bacteremia 4. Acute kidney injury, resolved 5. shortness of breath in the setting of chronic COPD 6. hypothyroidism 7. Hx of Paroxysmal atrial fibrillation on xarelto 8. hypertension 9. hyperlipidemia 10. Hx of CO -Patient is currently on cefepime, doxycylcine and daptomycin for ABX coverage per ID recommendations -One bottle blood culture positive for MRSA and repeats have been negative thus far -An echocardiogram was obtained to rule out vegetations and was reviewed; revealed no definite vegitations with LVEF of 48.7% -CT right lower extremity ordered to evaluate right anterior thigh mass and revealed a well defined lipoma -He is on oral prednisone for SOB with underlying chronic COPD -He is on dilaudid/morphine for pain control -IVF hydration for JOSIAH; his lasix and lisinopril were also held and JOSIAH is improving/resolved -Robitussin PRN for cough, tylenol PRN for fevers -Incentive spirometry -Oral hygeine -CT Chest was reviewed -He is on spiriva, singulair and xopenex for his history of COPD, effient/ lipitor for hx of CO -He is on lisinopril for hypertension, synthroid for hypothyroidism, xarelto for hx of paroxysmal atrial fibrillation -Right Foot xray revealed no acute abnormalities -EKG revealed sinus rhythm with 1st degree AV block, possible LAE, LAD, RBBB and old inferior infarct -PT/OT evaluation -OOB to chair -HOB > 30' Patient seen and case discussed/reviewed with attending, Dr. Osborne <Ap Osborne S - Last Filed: 09/04/17 23:25> Objective - Vital Signs/Intake and Output Vital Signs (last 24 hours): Temp Pulse Resp BP Pulse Ox 98 F 72 20 136/80 98 09/04/17 16:45 09/04/17 16:45 09/04/17 16:45 09/04/17 16:45 09/04/17 16:45 Intake and Output: 09/04/17 09/05/17 18:59 06:59 Intake Total 1940 Output Total 1300 Balance 640 - Medications Medications: Current Medications Acetaminophen (Tylenol 325mg Tab) 650 mg PO Q6H PRN PRN Reason: Fever >100.4 F Albuterol/Ipratropium (Duoneb 3 Mg/0.5 Mg (3 Ml) Ud) 3 ml IH Q3 PRN PRN Reason: Cough and congestion Last Admin: 09/03/17 16:37 Dose: 3 ml Atorvastatin Calcium (Lipitor) 40 mg PO QAM [facility] Last Admin: 09/04/17 09:28 Dose: 40 mg Bisacodyl (Dulcolax) 10 mg RC DAILY PRN PRN Reason: constipation Last Admin: 09/01/17 09:39 Dose: 10 mg Bupropion HCl (Wellbutrin) 100 mg PO DAILY [facility] Last Admin: 09/04/17 09:28 Dose: 100 mg Cholecalciferol (Vitamin D) 1,000 intlu PO DAILY [facility] Last Admin: 09/04/17 09:28 Dose: 1,000 intlu Doxycycline Hyclate (Doryx) 100 mg PO Q12 [facility] PRN Reason: Protocol Stop: 09/09/17 22:01 Last Admin: 09/04/17 21:13 Dose: 100 mg Furosemide (Lasix) 20 mg IVP DAILY [facility] Last Admin: 09/01/17 09:40 Dose: 20 mg Guaifenesin (Robitussin) 100 mg PO Q4H PRN PRN Reason: Cough Last Admin: 08/30/17 21:22 Dose: 100 mg Hydromorphone HCl (Dilaudid) 1 mg IVP Q4H PRN PRN Reason: Pain, moderate (4-7) Last Admin: 09/04/17 22:13 Dose: 1 mg Sodium Chloride (Sodium Chloride 0.9%) 1,000 mls @ 100 mls/hr IV .Q10H [facility] Last Admin: 09/04/17 12:26 Dose: 100 mls/hr Daptomycin 480 mg/ Sodium (Chloride) 100 mls @ 200 mls/hr IV Q24H [facility] Stop: 09/07/17 11:01 Last Admin: 09/04/17 12:25 Dose: 200 mls/hr Levalbuterol HCl (Xopenex) 0.63 mg IH [id number] [facility] Last Admin: 09/04/17 19:55 Dose: 0.63 mg Levothyroxine Sodium (Synthroid) 175 mcg PO DAILY [facility] Last Admin: 09/04/17 09:27 Dose: 175 mcg Lisinopril (Zestril) 5 mg PO DAILY [facility] Last Admin: 09/01/17 09:42 Dose: 5 mg Mirtazapine (Remeron) 15 mg PO HS [facility] Last Admin: 09/04/17 21:13 Dose: 15 mg Montelukast Sodium (Singulair) 10 mg PO HS [facility] Last Admin: 09/04/17 21:13 Dose: 10 mg Morphine Sulfate (Morphine Extended Release Tab) 30 mg PO Q12 [facility] Last Admin: 09/04/17 21:12 Dose: 30 mg Polyethylene Glycol (Miralax) 17 gm PO BID [facility] Last Admin: 09/04/17 17:11 Dose: Not Given Prednisone (Prednisone Tab) 20 mg PO DAILY [facility] Last Admin: 09/04/17 09:28 Dose: 20 mg Rivaroxaban (Xarelto) 10 mg PO DAILY [facility] PRN Reason: Protocol Last Admin: 09/04/17 09:27 Dose: 10 mg Tiotropium [place] (Spiriva) 18 mcg IH DAILY [facility] Last Admin: 09/04/17 09:28 Dose: 18 mcg Venlafaxine HCl (Effexor Xr) 75 mg PO DAILY [facility] Last Admin: 09/04/17 09:28 Dose: 75 mg - Labs Labs: 09/04/17 07:00 09/04/17 07:00 Assessment and Plan - Assessment and Plan (Free Text) Plan: Pt seen and examined. I have reviewed the note of the medical research tech and agree with it. I have discussed the assessment and plan with the resident. I have reviewed the patient's labs and medications. Pt with L 6-10 rib Fx. Pt on Daptomycin and doxycycline. On pain medications. BP is controlled. ID following.
[2017-09-04 08:44] LABS: ATYPICAL LYMPHOCYTE 1 % (0.0-0.0); LYMPHOCYTE 20 % (22.0-35.0); METAMYELOCYTE 1 %; MONOCYTE 8 % (1.0-6.0); MYELOCYTE 3 %; NEUTROPHIL 67 % (50.0-70.0); NUCLEATED RED BLOOD CELL 1 %
--- NOTE | 2017-09-04 09:25 | CT ---
Date of service: 09/04/2017 PROCEDURE: CT of the right lower extremity HISTORY: r/o right anterior thigh abscess COMPARISON: TECHNIQUE: Radiation dose: Total exam DLP = 428 mGy-cm. 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 This measures 10 cm in length by 2.9 cm AP and 4 cm wide. The remaining muscles are unremarkable. There are no abnormalities in the subcutaneous space. 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
[2017-09-04] MEDS: POLYETHYLENE GLYCOL 3350 17 GM/Dose PACKET PO SCH ×2 (09:27→17:11)
[2017-09-04] MEDS: Levothyroxine 175 MCG TAB PO SCH (09:27)
[2017-09-04] MEDS: Venlafaxine 75 mg ER Cap PO SCH (09:28)
[2017-09-04] MEDS: Tiotropium 18 mcg Cap For Inhalation IH SCH (09:28)
[2017-09-04] MEDS: Morphine 30 mg SR Tab PO SCH ×2 (09:28→21:12)
[2017-09-04] MEDS: Cholecalciferol 1,000 INTLU TAB PO SCH (09:28)
[2017-09-04] MEDS: Cefepime IV 2 gm in NS 2 GM/100 ML BAG IVPB SCH (09:30)
[2017-09-04] MEDS: Sodium Chloride 0.9% 1,000 ML IV SCH (12:26)
--- NOTE | 2017-09-04 17:01 | PN ---
DATE: 09/04/2017 SUBJECTIVE: The patient is seen earlier this morning. No fever, no chills. He is awake and alert, doing well. PHYSICAL EXAMINATION: VITAL SIGNS: Temperature is 98, blood pressure is 130/70, respiratory rate of 18, and heart rate of 94. HEENT: Unremarkable. NECK: Supple. LUNGS: Have decreased breath sounds. HEART: Normal S1 and S2. ABDOMEN: Soft, nontender. No rebound, no guarding, no masses. LABORATORY DATA: Reveals the patient's white count of 15,000, hemoglobin of 10, and platelets of 338. The chemistries are noted. The BUN of 18, creatinine of 1.3. LFTs are elevated. Procalcitonin is 3.46. C-reactive protein is 333. The patient's sed rate is 125. Urinalysis is noted and microbiology reveals MRSA from the initial blood cultures from the 08/31. The repeat blood cultures are negative. The MRSA has an REJI of 1 to vancomycin. The patient had lower extremity CAT scan on the right leg, he had what appears to be a lipoma, concerned about a collection. The patient also had an echo, no vegetation was seen by Dr. Valdez. ASSESSMENT AND PLAN: This is a 77-year-old male admitted with sepsis due to bibasilar healthcare-associated pneumonia and has methicillin-resistant Staphylococcus aureus bacteremia, not related to the pneumonia. I believe that the skin is the source and he had a negative echo in a the patient with multiple sclerosis and he has multiple abrasions on the skin. Currently on daptomycin, doxycycline, and cefepime. Doxycycline and cefepime, day #6. I am concerned about the sed rate of 125 and extremely high C-reactive protein, although the patient had a transient bacteremia with no obvious source, possibly the skin in this patient who has methicillin-resistant Staphylococcus aureus bacteremia. Case was discussed with Dr. Derek Briggs and also discussed with Dr. Osborne yesterday and again with Dr. Riggins. The patient has no intravascular devices. We will follow closely with you. They need at least 14 to 21 days of antibiotics. Follow the extremely high sed rate and C-reactive protein closely. Jak Boghossian, MD [facility] # [id number]
[2017-09-04] MEDS: HYDROmorphone 2 mg/ml ISec IVP PRN ×2 (17:42→22:13)
--- NOTE | 2017-09-04 23:18 | PN ---
DATE: 09/03/2017 SUBJECTIVE: I was asked to repeat my progress note from yesterday. The patient was seen yesterday. No fevers, no chills. No nausea. No vomiting. PHYSICAL EXAMINATION: VITAL SIGNS: On exam, temperature of 98, blood pressure is 120/70, respiratory rate 16. HEENT: Examination of HEENT is unremarkable. NECK: Supple. LUNGS: Have decreased breath sounds. HEART: Normal S1, S2. ABDOMEN: Soft. LABORATORY DATA: Laboratory examinations reviewed. ASSESSMENT AND PLAN: A 77-year-old male who was admitted with sepsis due to bibasilar healthcare-associated pneumonia, found to have methicillin-resistant Staphylococcus aureus bacteremia and not related to pneumonia, probable skin origin. Negative echo, on doxycycline and daptomycin and cefepime. Concerned about this elevated sed rate of 125 and very high C-reactive protein, although, the repeat blood cultures are negative. We will follow with you. Jak Gray MD
[2017-09-05] MEDS: HYDROmorphone 2 mg/ml ISec IVP PRN ×5 (01:53→22:04)
[2017-09-05] MEDS: Levalbuterol 0.63 MG/3 ML Inhal Soln UD IH SCH ×4 (02:29→20:16)
[2017-09-05 07:15] LABS: BASO # 0.13 K/mm3 (0.0-2.0); BASO % 0.8 % (0.0-3.0); EOS # 0.2 (0.0-0.7); EOS % 1.2 % (1.5-5.0); GRAN # 9.53 (1.4-6.5); HEMOGLOBIN 9.9 g/dL (14.0-18.0); LYMPH # 4.2 (1.2-3.4); MEAN CELL VOLUME 85.7 fl (80.0-105.0); MEAN CORPUSCULAR HEMOGLOBIN 27.2 pg (25.0-35.0); MEAN CORPUSCULAR HGB CONC 31.7 g/dl (31.0-37.0); MEAN PLATELET VOLUME 8.6 fl (7.0-11.0); MONO # 1.4 (0.1-0.6); RBC 3.64 10^6/uL (3.5-6.1); RED CELL DISTRIBUTION WIDTH 15.6 % (11.5-14.5); WHITE BLOOD COUNT 15.4 10^3/ul (4.5-11.0)
[2017-09-05 07:33] LABS: ALB/GLOB RATIO 0.9 (1.1-1.8); ALBUMIN 2.9 g/dL (3.0-4.8); ALT/SGPT 77 U/L (7-56); AST/SGOT 63 U/L (17-59); BLOOD UREA NITROGEN 33 mg/dL (7-21); CALCIUM 8.7 mg/dL (8.4-10.5); GFR AFRICAN-AMERICAN > 60; GFR NON-AFRICAN AMERICAN > 60
--- NOTE | 2017-09-05 08:17 | PN ---
DATE: 09/05/2017 PULMONARY NOTE SUBJECTIVE: The patient appears comfortable this morning. He is not short of breath at rest. PHYSICAL EXAMINATION VITAL SIGNS: (Last noted in the computer): Temperature is 98, pulse is 72, respirations 18/20, blood pressure 136/80. Oxygen saturation on nasal cannula is 98%. HEENT: Normocephalic, atraumatic. No JVD. CARDIOVASCULAR: Positive S1, S2. No S3 gallop. LUNGS: Decreased breath sounds at the bases. Minimal bilateral rhonchi. No wheezing. EXTREMITIES: No clubbing, cyanosis or edema. Calves are nontender to palpation. GI: Abdomen is soft, nontender and nondistended. Bowel sounds are positive. SKIN: No acute rash. NEUROLOGIC: Limited at the present time. IMPRESSION: 1. Multiple left-sided rib fractures, status post fall. 2. Chronic obstructive pulmonary disease. 3. Mild bronchospasm. 4. Probable atelectasis at the bases. 5. Multiple sclerosis. PLAN: The patient appears comfortable this morning. He is not short of breath at rest. He does state to feeling much better overall. On physical exam, there is only mild bronchospasm noted. In addition, the alveolar-arterial gradient is much less. I will continue with the current nebulizer treatments and low-dose oral steroids for now. The patient is also using his incentive spirometer, and is out of bed as much as possible. The patient remains on antibiotic therapy - as per Infectious Disease. Input by Dr. Gray is noted. The leukocytosis is resolving. Clinical status of the patient is significantly improved overall. However, the future status/prognosis for this patient does remain somewhat guarded. I will discuss the above with the attending physician. Amanuel Riggins MD MTDD
--- NOTE | 2017-09-05 08:25 | CP.PCM.PN ---
<Derek Briggs - Last Filed: 09/05/17 23:11> Subjective - Date & Time of Evaluation Date of Evaluation: 09/05/17 Time of Evaluation: 08:21 - Subjective Subjective: Medicine progress note for Dr. Osborne's service - Aracelis Briggs PGY3 Patient seen and examined at bedside this morning. No acute overnight events or new complaints reported. Left-sided chest wall tenderness secondary to fractures. Denies abdominal pain, nausea, vomiting. Objective - Vital Signs/Intake and Output Vital Signs (last 24 hours): Temp Pulse Resp BP Pulse Ox 98 F 72 20 136/80 98 09/04/17 16:45 09/04/17 16:45 09/04/17 16:45 09/04/17 16:45 09/04/17 16:45 Intake and Output: 09/05/17 09/05/17 06:59 18:59 Intake Total 300 Output Total 800 Balance -500 - Medications Medications: Current Medications Acetaminophen (Tylenol 325mg Tab) 650 mg PO Q6H PRN PRN Reason: Fever >100.4 F Albuterol/Ipratropium (Duoneb 3 Mg/0.5 Mg (3 Ml) Ud) 3 ml IH Q3 PRN PRN Reason: Cough and congestion Last Admin: 09/03/17 16:37 Dose: 3 ml Atorvastatin Calcium (Lipitor) 40 mg PO QAM [facility] Last Admin: 09/04/17 09:28 Dose: 40 mg Bisacodyl (Dulcolax) 10 mg RC DAILY PRN PRN Reason: constipation Last Admin: 09/01/17 09:39 Dose: 10 mg Bupropion HCl (Wellbutrin) 100 mg PO DAILY [facility] Last Admin: 09/04/17 09:28 Dose: 100 mg Cholecalciferol (Vitamin D) 1,000 intlu PO DAILY [facility] Last Admin: 09/04/17 09:28 Dose: 1,000 intlu Doxycycline Hyclate (Doryx) 100 mg PO Q12 [facility] PRN Reason: Protocol Stop: 09/09/17 22:01 Last Admin: 09/04/17 21:13 Dose: 100 mg Furosemide (Lasix) 20 mg IVP DAILY [facility] Last Admin: 09/01/17 09:40 Dose: 20 mg Guaifenesin (Robitussin) 100 mg PO Q4H PRN PRN Reason: Cough Last Admin: 08/30/17 21:22 Dose: 100 mg Hydromorphone HCl (Dilaudid) 1 mg IVP Q4H PRN PRN Reason: Pain, moderate (4-7) Last Admin: 09/05/17 01:53 Dose: 1 mg Sodium Chloride (Sodium Chloride 0.9%) 1,000 mls @ 100 mls/hr IV .Q10H [facility] Last Admin: 09/04/17 12:26 Dose: 100 mls/hr Daptomycin 480 mg/ Sodium (Chloride) 100 mls @ 200 mls/hr IV Q24H [facility] Stop: 09/07/17 11:01 Last Admin: 09/04/17 12:25 Dose: 200 mls/hr Levalbuterol HCl (Xopenex) 0.63 mg IH [id number] [facility] Last Admin: 09/05/17 07:23 Dose: 0.63 mg Levothyroxine Sodium (Synthroid) 175 mcg PO DAILY [facility] Last Admin: 09/04/17 09:27 Dose: 175 mcg Lisinopril (Zestril) 5 mg PO DAILY [facility] Last Admin: 09/01/17 09:42 Dose: 5 mg Mirtazapine (Remeron) 15 mg PO HS [facility] Last Admin: 09/04/17 21:13 Dose: 15 mg Montelukast Sodium (Singulair) 10 mg PO HS [facility] Last Admin: 09/04/17 21:13 Dose: 10 mg Morphine Sulfate (Morphine Extended Release Tab) 30 mg PO Q12 [facility] Last Admin: 09/04/17 21:12 Dose: 30 mg Polyethylene Glycol (Miralax) 17 gm PO BID [facility] Last Admin: 09/04/17 17:11 Dose: Not Given Prednisone (Prednisone Tab) 20 mg PO DAILY [facility] Last Admin: 09/04/17 09:28 Dose: 20 mg Rivaroxaban (Xarelto) 10 mg PO DAILY [facility] PRN Reason: Protocol Last Admin: 09/04/17 09:27 Dose: 10 mg Tiotropium [place] (Spiriva) 18 mcg IH DAILY [facility] Last Admin: 09/04/17 09:28 Dose: 18 mcg Venlafaxine HCl (Effexor Xr) 75 mg PO DAILY [facility] Last Admin: 09/04/17 09:28 Dose: 75 mg - Labs Labs: 09/05/17 06:50 07/26/18 06:50 - Constitutional Appears: No Acute Distress - Head Exam Head Exam: ATRAUMATIC, NORMAL INSPECTION, NORMOCEPHALIC - Eye Exam Eye Exam: EOMI Pupil Exam: PERRL - ENT Exam ENT Exam: Mucous Membranes Moist - Neck Exam Neck Exam: Normal Inspection. absent: Lymphadenopathy, Tenderness, Thyromegaly - Respiratory Exam Respiratory Exam: Wheezes. absent: Rales, Rhonchi - Cardiovascular Exam Cardiovascular Exam: RRR, +S1, +S2. absent: Clicks, Gallop, JVD, Rubs, Murmur - GI/Abdominal Exam GI & Abdominal Exam: Soft. absent: Distended, Firm, Guarding, Rigid, Tenderness , Rebound - Extremities Exam Extremities Exam: Normal Inspection. absent: Calf Tenderness, Joint Swelling, Pedal Edema, Tenderness - Neurological Exam Neurological Exam: Alert, Awake, CN II-XII Intact, Oriented x3 - Psychiatric Exam Psychiatric exam: Normal Affect, Normal Mood - Skin Skin Exam: Dry, Intact, Normal Color, Warm Assessment and Plan - Assessment and Plan (Free Text) Plan: 77yo male with history of MS, [place] s/p 2 stents, hypothyroidism, hydrocele, COPD, HTN, HLD, atrial fibrillation presents with left-sided rib fractures s/p fall 1. Acute left-sided non-displaced ribs 6-10 fractures 2. Healthcare associated pneumonia 3. MRSA bacteremia 4. Acute kidney injury, resolved 5. shortness of breath in the setting of chronic COPD 6. hypothyroidism 7. Hx of Paroxysmal atrial fibrillation on xarelto 8. hypertension 9. hyperlipidemia 10. Hx of [place] -Patient is currently on cefepime, doxycylcine and daptomycin for ABX coverage per ID recommendations -One bottle blood culture positive for MRSA -Repeat blodo cultures have been negative -Echocardiogram was obtained to rule out vegetations and was reviewed; revealed no definite vegitations with LVEF of 48.7% -CT right lower extremity ordered to evaluate right anterior thigh mass and revealed a well defined lipoma -He is on oral prednisone for SOB with underlying chronic COPD -He is on dilaudid/morphine for pain control -JOSIAH has resolved with fluid hydration -Robitussin PRN for cough, tylenol PRN for fevers -Incentive spirometry -Oral hygeine -CT Chest was reviewed -He is on spiriva, singulair and xopenex for his history of COPD, effient/ lipitor for hx of [place] -He is on synthroid for hypothyroidism, xarelto for hx of paroxysmal atrial fibrillation -Right Foot xray revealed no acute abnormalities -EKG revealed sinus rhythm with 1st degree AV block, possible LAE, LAD, RBBB and old inferior infarct -PT/OT evaluation -OOB to chair -HOB > 30' Patient seen and case discussed/reviewed with attending, Dr. Osborne <Ap Osborne - Last Filed: 09/05/17 23:58> Objective - Vital Signs/Intake and Output Vital Signs (last 24 hours): Temp Pulse Resp BP Pulse Ox 98 F 76 18 130/82 99 09/05/17 16:41 09/05/17 16:41 09/05/17 16:41 09/05/17 16:41 09/05/17 16:41 Intake and Output: 09/05/17 09/06/17 18:59 06:59 Intake Total 300 1340 Output Total 800 900 Balance -500 440 - Medications Medications: Current Medications Acetaminophen (Tylenol 325mg Tab) 650 mg PO Q6H PRN PRN Reason: Fever >100.4 F Albuterol/Ipratropium (Duoneb 3 Mg/0.5 Mg (3 Ml) Ud) 3 ml IH Q3 PRN PRN Reason: Cough and congestion Last Admin: 09/03/17 16:37 Dose: 3 ml Atorvastatin Calcium (Lipitor) 40 mg PO QAM [facility] Last Admin: 09/05/17 09:33 Dose: 40 mg Bisacodyl (Dulcolax) 10 mg RC DAILY PRN PRN Reason: constipation Last Admin: 09/01/17 09:39 Dose: 10 mg Bupropion HCl (Wellbutrin) 100 mg PO DAILY [facility] Last Admin: 09/05/17 09:32 Dose: 100 mg Cholecalciferol (Vitamin D) 1,000 intlu PO DAILY [facility] Last Admin: 09/05/17 09:33 Dose: 1,000 intlu Doxycycline Hyclate (Doryx) 100 mg PO Q12 [facility] PRN Reason: Protocol Stop: 09/09/17 22:01 Last Admin: 09/05/17 22:11 Dose: 100 mg Furosemide (Lasix) 20 mg IVP DAILY [facility] Last Admin: 09/01/17 09:40 Dose: 20 mg Guaifenesin (Robitussin) 100 mg PO Q4H PRN PRN Reason: Cough Last Admin: 08/30/17 21:22 Dose: 100 mg Hydromorphone HCl (Dilaudid) 1 mg IVP Q4H PRN PRN Reason: Pain, moderate (4-7) Last Admin: 09/05/17 22:04 Dose: 1 mg Daptomycin 480 mg/ Sodium (Chloride) 100 mls @ 200 mls/hr IV Q24H [facility] Stop: 09/07/17 11:01 Last Admin: 09/05/17 11:00 Dose: 200 mls/hr Levalbuterol HCl (Xopenex) 0.63 mg IH [id number] [facility] Last Admin: 09/05/17 20:16 Dose: 0.63 mg Levothyroxine Sodium (Synthroid) 175 mcg PO DAILY [facility] Last Admin: 09/05/17 09:37 Dose: 175 mcg Lisinopril (Zestril) 5 mg PO DAILY [facility] Last Admin: 09/01/17 09:42 Dose: 5 mg Mirtazapine (Remeron) 15 mg PO HS [facility] Last Admin: 09/05/17 22:11 Dose: 15 mg Montelukast Sodium (Singulair) 10 mg PO HS [facility] Last Admin: 09/05/17 22:12 Dose: 10 mg Polyethylene Glycol (Miralax) 17 gm PO BID [facility] Last Admin: 09/05/17 18:26 Dose: Not Given Prednisone (Prednisone Tab) 20 mg PO DAILY [facility] Last Admin: 09/05/17 09:32 Dose: 20 mg Rivaroxaban (Xarelto) 10 mg PO DAILY [facility] PRN Reason: Protocol Last Admin: 09/05/17 09:33 Dose: 10 mg Tiotropium [place] (Spiriva) 18 mcg IH DAILY [facility] Last Admin: 09/05/17 09:33 Dose: 18 mcg Venlafaxine HCl (Effexor Xr) 75 mg PO DAILY [facility] Last Admin: 09/05/17 09:33 Dose: 75 mg - Labs Labs: 09/05/17 06:50 09/05/17 06:50 Assessment and Plan - Assessment and Plan (Free Text) Plan: Pt seen and examined. I have reviewed the note of the biomedical manager and agree with it. I have discussed the assessment and plan with the resident. I have reviewed the patient's labs and medications. Pt with continued pain in the L side of his chest. He is on IV Abx for MRSA. Echo was reviewed and shows no endocarditis. On Narcotics for pain.
[2017-09-05] MEDS: Cholecalciferol 1,000 INTLU TAB PO SCH (09:33)
[2017-09-05] MEDS: POLYETHYLENE GLYCOL 3350 17 GM/Dose PACKET PO SCH ×2 (09:33→18:26)
[2017-09-05] MEDS: Tiotropium 18 mcg Cap For Inhalation IH SCH (09:33)
[2017-09-05] MEDS: Venlafaxine 75 mg ER Cap PO SCH (09:33)
[2017-09-05] MEDS: Levothyroxine 175 MCG TAB PO SCH (09:37)
[2017-09-05] MEDS: Morphine 30 mg SR Tab PO SCH (10:00)
--- NOTE | 2017-09-05 12:38 | CP.PCM.PN ---
Subjective - Date & Time of Evaluation Date of Evaluation: 09/05/17 Time of Evaluation: 10:15 - Subjective Subjective: No fevers, no diarrhea, no nausea. Objective - Vital Signs/Intake and Output Vital Signs (last 24 hours): Temp Pulse Resp BP Pulse Ox 98 F 72 20 136/80 98 09/04/17 16:45 09/04/17 16:45 09/04/17 16:45 09/04/17 16:45 09/04/17 16:45 Intake and Output: 09/05/17 09/05/17 06:59 18:59 Intake Total 300 Output Total 800 Balance -500 - Medications Medications: Current Medications Acetaminophen (Tylenol 325mg Tab) 650 mg PO Q6H PRN PRN Reason: Fever >100.4 F Albuterol/Ipratropium (Duoneb 3 Mg/0.5 Mg (3 Ml) Ud) 3 ml IH Q3 PRN PRN Reason: Cough and congestion Last Admin: 09/03/17 16:37 Dose: 3 ml Atorvastatin Calcium (Lipitor) 40 mg PO QAM [facility] Last Admin: 09/05/17 09:33 Dose: 40 mg Bisacodyl (Dulcolax) 10 mg RC DAILY PRN PRN Reason: constipation Last Admin: 09/01/17 09:39 Dose: 10 mg Bupropion HCl (Wellbutrin) 100 mg PO DAILY [facility] Last Admin: 09/05/17 09:32 Dose: 100 mg Cholecalciferol (Vitamin D) 1,000 intlu PO DAILY [facility] Last Admin: 09/05/17 09:33 Dose: 1,000 intlu Doxycycline Hyclate (Doryx) 100 mg PO Q12 [facility] PRN Reason: Protocol Stop: 09/09/17 22:01 Last Admin: 09/05/17 09:32 Dose: 100 mg Furosemide (Lasix) 20 mg IVP DAILY [facility] Last Admin: 09/01/17 09:40 Dose: 20 mg Guaifenesin (Robitussin) 100 mg PO Q4H PRN PRN Reason: Cough Last Admin: 08/30/17 21:22 Dose: 100 mg Hydromorphone HCl (Dilaudid) 1 mg IVP Q4H PRN PRN Reason: Pain, moderate (4-7) Last Admin: 09/05/17 09:37 Dose: 1 mg Daptomycin 480 mg/ Sodium (Chloride) 100 mls @ 200 mls/hr IV Q24H [facility] Stop: 09/07/17 11:01 Last Admin: 09/04/17 12:25 Dose: 200 mls/hr Levalbuterol HCl (Xopenex) 0.63 mg IH [id number] [facility] Last Admin: 09/05/17 07:23 Dose: 0.63 mg Levothyroxine Sodium (Synthroid) 175 mcg PO DAILY [facility] Last Admin: 09/05/17 09:37 Dose: 175 mcg Lisinopril (Zestril) 5 mg PO DAILY [facility] Last Admin: 09/01/17 09:42 Dose: 5 mg Mirtazapine (Remeron) 15 mg PO HS [facility] Last Admin: 09/04/17 21:13 Dose: 15 mg Montelukast Sodium (Singulair) 10 mg PO HS [facility] Last Admin: 09/04/17 21:13 Dose: 10 mg Polyethylene Glycol (Miralax) 17 gm PO BID [facility] Last Admin: 09/05/17 09:33 Dose: 17 gm Prednisone (Prednisone Tab) 20 mg PO DAILY [facility] Last Admin: 09/05/17 09:32 Dose: 20 mg Rivaroxaban (Xarelto) 10 mg PO DAILY [facility] PRN Reason: Protocol Last Admin: 09/05/17 09:33 Dose: 10 mg Tiotropium [place] (Spiriva) 18 mcg IH DAILY [facility] Last Admin: 09/05/17 09:33 Dose: 18 mcg Venlafaxine HCl (Effexor Xr) 75 mg PO DAILY [facility] Last Admin: 09/05/17 09:33 Dose: 75 mg - Labs Labs: 09/05/17 06:50 09/05/17 06:50 - Constitutional Appears: Chronically Ill - Head Exam Head Exam: NORMAL INSPECTION - Respiratory Exam Respiratory Exam: Decreased Breath Sounds - Cardiovascular Exam Cardiovascular Exam: +S1, +S2 - GI/Abdominal Exam GI & Abdominal Exam: Soft. absent: Tenderness Assessment and Plan - Assessment and Plan (Free Text) Plan: Assessment sepsis due to bibasilar HCAP, also with Staph aureus bacteremia, consider skin as the source, R/O other sources (Such as heart valves) multiple sclerosis CAD S/P PCI hypothyroidism COPD HTN dyslipidemia S/P right inguinal hernia repair S/P appendectomy significant smoking history Plan continue Cefepime and Doxycycline (Day 7 of 7 days) and continue Daptomycin day 5 from first negative blood cx and will need at least 2 weeks of antibiotics for the MRSA bacteremia - 2D echo is negative and the bacteremia is not persistent will continue to monitor clinically
[2017-09-06] MEDS: HYDROmorphone 2 mg/ml ISec IVP PRN ×6 (01:33→20:40)
[2017-09-06] MEDS: Levalbuterol 0.63 MG/3 ML Inhal Soln UD IH SCH ×4 (02:00→20:38)
[2017-09-06 06:39] LABS: ALBUMIN 3.1 g/dL (3.0-4.8); ALT/SGPT 71 U/L (7-56); AST/SGOT 63 U/L (17-59); BLOOD UREA NITROGEN 29 mg/dL (7-21); CALCIUM 9.1 mg/dL (8.4-10.5); GFR AFRICAN-AMERICAN > 60; GFR NON-AFRICAN AMERICAN > 60
[2017-09-06 06:40] LABS: BASO # 0.18 K/mm3 (0.0-2.0); BASO % 1.1 % (0.0-3.0); EOS # 0.4 (0.0-0.7); EOS % 2.3 % (1.5-5.0); GRAN # 10.14 (1.4-6.5); GRAN % 60.5 % (50.0-68.0); HEMOGLOBIN 11.2 g/dL (14.0-18.0); LYMPH # 4.5 (1.2-3.4); LYMPH % 26.9 % (22.0-35.0); MEAN CELL VOLUME 85.6 fl (80.0-105.0); MEAN CORPUSCULAR HEMOGLOBIN 27.7 pg (25.0-35.0); MEAN CORPUSCULAR HGB CONC 32.4 g/dl (31.0-37.0); MEAN PLATELET VOLUME 8.6 fl (7.0-11.0); MONO # 1.5 (0.1-0.6); MONO % 9.2 % (1.0-6.0); RBC 4.04 10^6/uL (3.5-6.1); RED CELL DISTRIBUTION WIDTH 15.4 % (11.5-14.5); WHITE BLOOD COUNT 16.7 10^3/ul (4.5-11.0)
--- NOTE | 2017-09-06 09:10 | CP.PCM.PN ---
<Derek Briggs - Last Filed: 09/06/17 09:21> Subjective - Date & Time of Evaluation Date of Evaluation: 09/06/17 Time of Evaluation: 09:07 - Subjective Subjective: Medicine progress note for Dr. Osborne's service - Aracelis Brgigs PGY3 Patient seen and examined at bedside this morning. No acute overnight events or new complaints reported. Encouraged to continue with PT and needs to complete ABX course. Will go to [place] for rehab upon discharge. Denies abdominal pain, nausea, vomiting. Objective - Vital Signs/Intake and Output Vital Signs (last 24 hours): Temp Pulse Resp BP Pulse Ox 98 F 76 18 130/82 99 09/05/17 16:41 09/05/17 16:41 09/05/17 16:41 09/05/17 16:41 09/05/17 16:41 Intake and Output: 09/06/17 09/06/17 06:59 18:59 Intake Total 1340 Output Total 900 Balance 440 - Medications Medications: Current Medications Acetaminophen (Tylenol 325mg Tab) 650 mg PO Q6H PRN PRN Reason: Fever >100.4 F Albuterol/Ipratropium (Duoneb 3 Mg/0.5 Mg (3 Ml) Ud) 3 ml IH Q3 PRN PRN Reason: Cough and congestion Last Admin: 09/03/17 16:37 Dose: 3 ml Atorvastatin Calcium (Lipitor) 40 mg PO QAM COUNTS [facility]CLUDE 234 BEDS AT [facility] Last Admin: 09/05/17 09:33 Dose: 40 mg Bisacodyl (Dulcolax) 10 mg RC DAILY PRN PRN Reason: constipation Last Admin: 09/01/17 09:39 Dose: 10 mg Bupropion HCl (Wellbutrin) 100 mg PO DAILY COUNTS INCLUDE 234 BEDS AT [facility] Last Admin: 09/05/17 09:32 Dose: 100 mg Cholecalciferol (Vitamin D) 1,000 intlu PO DAILY COUNTS INCLUDE 234 BEDS AT [facility] Last Admin: 09/05/17 09:33 Dose: 1,000 intlu Doxycycline Hyclate (Doryx) 100 mg PO Q12 COUNTS INCLUDE 234 BEDS AT THE [facility] PRN Reason: Protocol Stop: 09/09/17 22:01 Last Admin: 09/05/17 22:11 Dose: 100 mg Furosemide (Lasix) 20 mg IVP DAILY COUNTS INCLUDE 234 BEDS AT [facility] Last Admin: 09/01/17 09:40 Dose: 20 mg Guaifenesin (Robitussin) 100 mg PO Q4H PRN PRN Reason: Cough Last Admin: 08/30/17 21:22 Dose: 100 mg Hydromorphone HCl (Dilaudid) 1 mg IVP Q4H PRN PRN Reason: Pain, moderate (4-7) Last Admin: 09/06/17 05:26 Dose: 1 mg Daptomycin 480 mg/ Sodium (Chloride) 100 mls @ 200 mls/hr IV Q24H COUNTS INCLUDE 234 BEDS AT [facility] Stop: 09/07/17 11:01 Last Admin: 09/05/17 11:00 Dose: 200 mls/hr Levalbuterol HCl (Xopenex) 0.63 mg IH [id number] COUNTS INCLUDE 234 BEDS AT [facility] Last Admin: 09/06/17 07:08 Dose: 0.63 mg Levothyroxine Sodium (Synthroid) 175 mcg PO DAILY COUNTS INCLUDE 234 BEDS AT [facility] Last Admin: 09/05/17 09:37 Dose: 175 mcg Lisinopril (Zestril) 5 mg PO DAILY COUNTS INCLUDE 234 BEDS AT [facility] Last Admin: 09/01/17 09:42 Dose: 5 mg Mirtazapine (Remeron) 15 mg PO HS COUNTS INCLUDE 234 BEDS AT [facility] Last Admin: 09/05/17 22:11 Dose: 15 mg Montelukast Sodium (Singulair) 10 mg PO HS COUNTS INCLUDE 234 BEDS AT [facility] Last Admin: 09/05/17 22:12 Dose: 10 mg Polyethylene Glycol (Miralax) 17 gm PO BID COUNTS INCLUDE 234 BEDS AT [facility] Last Admin: 09/05/17 18:26 Dose: Not Given Prednisone (Prednisone Tab) 20 mg PO DAILY COUNTS INCLUDE 234 BEDS AT [facility] Last Admin: 09/05/17 09:32 Dose: 20 mg Rivaroxaban (Xarelto) 10 mg PO DAILY COUNTS INCLUDE 234 BEDS AT [facility] PRN Reason: Protocol Last Admin: 09/05/17 09:33 Dose: 10 mg Tiotropium [place] (Spiriva) 18 mcg IH DAILY COUNTS INCLUDE 234 BEDS AT [facility] Last Admin: 09/05/17 09:33 Dose: 18 mcg Venlafaxine HCl (Effexor Xr) 75 mg PO DAILY COUNTS INCLUDE 234 BEDS AT [facility] Last Admin: 09/05/17 09:33 Dose: 75 mg - Labs Labs: 09/06/17 06:00 09/06/17 06:00 - Constitutional Appears: No Acute Distress - Head Exam Head Exam: ATRAUMATIC, NORMAL INSPECTION, NORMOCEPHALIC - Eye Exam Eye Exam: EOMI, PERRL - ENT Exam ENT Exam: Mucous Membranes Moist - Respiratory Exam Respiratory Exam: Chest Wall Tenderness. absent: Rales, Rhonchi, Wheezes - Cardiovascular Exam Cardiovascular Exam: RRR, +S1, +S2. absent: Gallop, Rubs, Murmur - GI/Abdominal Exam GI & Abdominal Exam: Soft. absent: Distended, Firm, Guarding, Rigid, Tenderness , Rebound - Extremities Exam Extremities Exam: Normal Inspection. absent: Calf Tenderness, Joint Swelling, Pedal Edema, Tenderness - Neurological Exam Neurological Exam: Alert, Awake, CN II-XII Intact, Oriented x3. absent: Altered , Motor Sensory Deficit Neuro motor strength exam: Left Upper Extremity: 5, Right Upper Extremity: 5, Left Lower Extremity: 5, Right Lower Extremity: 5 - Psychiatric Exam Psychiatric exam: Normal Affect, Normal Mood - Skin Skin Exam: Dry, Intact, Normal Color, Warm Assessment and Plan - Assessment and Plan (Free Text) Plan: 77yo male with history of MS, KS s/p 2 stents, hypothyroidism, hydrocele, COPD, HTN, HLD, atrial fibrillation presents with left-sided rib fractures s/p fall 1. Acute left-sided non-displaced ribs 6-10 fractures 2. Healthcare associated pneumonia 3. MRSA bacteremia 4. Acute kidney injury, resolved 5. shortness of breath in the setting of chronic COPD 6. hypothyroidism 7. Hx of Paroxysmal atrial fibrillation on xarelto 8. hypertension 9. hyperlipidemia 10. Hx of KS -Patient is currently on doxycylcine and daptomycin for ABX coverage per ID recommendations; finished course of cefepime -One bottle blood culture positive for MRSA -Repeat blood cultures have been negative -Echocardiogram was obtained to rule out vegetations and was reviewed; revealed no definite vegitations with LVEF of 48.7% -CT right lower extremity ordered to evaluate right anterior thigh mass and revealed a well defined lipoma -He is on oral prednisone for SOB with underlying chronic COPD -He is on dilaudid/morphine for pain control -JOSIAH has resolved with fluid hydration -Robitussin PRN for cough, tylenol PRN for fevers -Incentive spirometry -Oral hygeine -CT Chest was reviewed -He is on spiriva, singulair and xopenex for his history of COPD, effient/ lipitor for hx of KS -He is on synthroid for hypothyroidism, xarelto for hx of paroxysmal atrial fibrillation -Right Foot xray revealed no acute abnormalities -EKG revealed sinus rhythm with 1st degree AV block, possible LAE, LAD, RBBB and old inferior infarct -PT/OT evaluation -OOB to chair -HOB > 30' Patient seen and case discussed/reviewed with attending, Dr. Osborne <Ap Osborne - Last Filed: 09/06/17 19:03> Objective - Vital Signs/Intake and Output Vital Signs (last 24 hours): Temp Pulse Resp BP Pulse Ox 98.4 F 90 20 130/70 98 09/06/17 16:49 09/06/17 16:49 09/06/17 16:49 09/06/17 16:49 09/06/17 16:49 Intake and Output: 09/06/17 09/06/17 06:59 18:59 Intake Total 1340 Output Total 900 Balance 440 - Medications Medications: Current Medications Acetaminophen (Tylenol 325mg Tab) 650 mg PO Q6H PRN PRN Reason: Fever >100.4 F Albuterol/Ipratropium (Duoneb 3 Mg/0.5 Mg (3 Ml) Ud) 3 ml IH Q3 PRN PRN Reason: Cough and congestion Last Admin: 09/03/17 16:37 Dose: 3 ml Atorvastatin Calcium (Lipitor) 40 mg PO QAM COUNTS INCLUDE 234 BEDS AT [facility] Last Admin: 09/06/17 09:34 Dose: 40 mg Bisacodyl (Dulcolax) 10 mg RC DAILY PRN PRN Reason: constipation Last Admin: 09/01/17 09:39 Dose: 10 mg Bupropion HCl (Wellbutrin) 100 mg PO DAILY COUNTS INCLUDE 234 BEDS AT [facility] Last Admin: 09/06/17 09:34 Dose: 100 mg Cholecalciferol (Vitamin D) 1,000 intlu PO DAILY COUNTS INCLUDE 234 BEDS AT [facility] Last Admin: 09/06/17 09:34 Dose: 1,000 intlu Furosemide (Lasix) 20 mg IVP DAILY COUNTS INCLUDE 234 BEDS AT [facility] Last Admin: 09/01/17 09:40 Dose: 20 mg Guaifenesin (Robitussin) 100 mg PO Q4H PRN PRN Reason: Cough Last Admin: 08/30/17 21:22 Dose: 100 mg Hydromorphone HCl (Dilaudid) 1 mg IVP Q4H PRN PRN Reason: Pain, moderate (4-7) Last Admin: 09/06/17 16:00 Dose: 1 mg Daptomycin 480 mg/ Sodium (Chloride) 100 mls @ 200 mls/hr IV Q24H COUNTS INCLUDE 234 BEDS AT [facility] Stop: 09/07/17 11:01 Last Admin: 09/06/17 13:38 Dose: 200 mls/hr Levalbuterol HCl (Xopenex) 0.63 mg IH [id number] COUNTS INCLUDE 234 BEDS AT [facility] Last Admin: 09/06/17 13:29 Dose: 0.63 mg Levothyroxine Sodium (Synthroid) 175 mcg PO DAILY COUNTS INCLUDE 234 BEDS AT [facility] Last Admin: 09/06/17 09:34 Dose: 175 mcg Lisinopril (Zestril) 5 mg PO DAILY COUNTS INCLUDE 234 BEDS AT [facility] Last Admin: 09/01/17 09:42 Dose: 5 mg Mirtazapine (Remeron) 15 mg PO HS COUNTS INCLUDE 234 BEDS AT [facility] Last Admin: 09/05/17 22:11 Dose: 15 mg Montelukast Sodium (Singulair) 10 mg PO HS COUNTS INCLUDE 234 BEDS AT [facility] Last Admin: 09/05/17 22:12 Dose: 10 mg Polyethylene Glycol (Miralax) 17 gm PO BID COUNTS INCLUDE 234 BEDS AT [facility] Last Admin: 09/06/17 17:00 Dose: Not Given Prednisone (Prednisone Tab) 20 mg PO DAILY COUNTS INCLUDE 234 BEDS AT [facility] Last Admin: 09/06/17 09:35 Dose: 20 mg Rivaroxaban (Xarelto) 10 mg PO DAILY COUNTS INCLUDE 234 BEDS AT [facility] PRN Reason: Protocol Last Admin: 09/06/17 09:34 Dose: 10 mg Tiotropium [place] (Spiriva) 18 mcg IH DAILY COUNTS INCLUDE 234 BEDS AT [facility] Last Admin: 09/06/17 09:35 Dose: 18 mcg Venlafaxine HCl (Effexor Xr) 75 mg PO DAILY COUNTS INCLUDE 234 BEDS AT [facility] Last Admin: 09/06/17 09:34 Dose: 75 mg - Labs Labs: 09/06/17 06:00 09/06/17 06:00 Assessment and Plan - Assessment and Plan (Free Text) Plan: Pt seen and examined. I have reviewed the note of the biomedical equipment tech and agree with it. I have discussed the assessment and plan with the resident. I have reviewed the patient's labs and medications. His pain is controlled. He is on IV Abx for his MRSA. Ct was reviewed. tylenol prn for pain and on narctoics. Pt is able to walk.
[2017-09-06] MEDS: Venlafaxine 75 mg ER Cap PO SCH (09:34)
[2017-09-06] MEDS: Levothyroxine 175 MCG TAB PO SCH (09:34)
[2017-09-06] MEDS: Cholecalciferol 1,000 INTLU TAB PO SCH (09:34)
[2017-09-06] MEDS: POLYETHYLENE GLYCOL 3350 17 GM/Dose PACKET PO SCH ×3 (09:35→17:00)
[2017-09-06] MEDS: Tiotropium 18 mcg Cap For Inhalation IH SCH (09:35)
--- NOTE | 2017-09-06 10:09 | PN ---
DATE: 09/06/2017 PULMONARY NOTE SUBJECTIVE: The patient appears comfortable this morning. He is not short of breath at rest. PHYSICAL EXAMINATION: VITAL SIGNS: (Last noted in the computer): Temperature is 98, pulse is 76, respirations 18, blood pressure 130/82. Oxygen saturation on nasal cannula is 99%. HEENT: Normocephalic, atraumatic. No JVD. CARDIOVASCULAR: Positive S1, S2. No S3 gallop. LUNGS: Decreased breath sounds at the bases. Minimal/less rhonchi. No wheezing. EXTREMITIES: No clubbing, cyanosis or edema. Calves are nontender to palpation. GI: Abdomen is soft, nontender and nondistended. Bowel sounds are positive. SKIN: No acute rash. NEUROLOGIC: Limited at the present time. IMPRESSION: 1. Multiple left-sided rib fractures. Status post fall. 2. Chronic obstructive pulmonary disease. 3. Mild bronchospasm. 4. Probable atelectasis at the bases. 5. Multiple sclerosis. PLAN: The patient appears comfortable this morning. He is not short of breath at rest. He does state to feeling much better overall. On physical exam, his bronchospasm continues to slowly resolve. In addition, the alveolar arterial gradient also continues to resolve. Oxygen saturation on nasal cannula is now 99%. I will continue with the current nebulizer treatments and low-dose oral steroids for now. The patient was also reminded to use his incentive spirometer as much as possible, and be out of bed as much as possible. Inputs by Infectious Disease and Internal Medicine are noted. Clinical status of the patient is significantly improved overall. However, again, the future status/prognosis for this patient does remain somewhat guarded. I will discuss the above with the attending physician. Amanuel Riggins MD MTDD
--- NOTE | 2017-09-06 15:21 | CP.PCM.PN ---
Subjective - Date & Time of Evaluation Date of Evaluation: 09/06/17 Time of Evaluation: 12:20 - Subjective Subjective: No fevers, still with rib pain but a little better, no diarrhea, no SOB at rest. Objective - Vital Signs/Intake and Output Vital Signs (last 24 hours): Temp Pulse Resp BP Pulse Ox 97.6 F 92 H 22 124/62 93 L 09/06/17 06:00 09/06/17 06:00 09/06/17 06:00 09/06/17 06:00 09/06/17 06:00 Intake and Output: 09/06/17 09/06/17 06:59 18:59 Intake Total 1340 Output Total 900 Balance 440 - Medications Medications: Current Medications Acetaminophen (Tylenol 325mg Tab) 650 mg PO Q6H PRN PRN Reason: Fever >100.4 F Albuterol/Ipratropium (Duoneb 3 Mg/0.5 Mg (3 Ml) Ud) 3 ml IH Q3 PRN PRN Reason: Cough and congestion Last Admin: 09/03/17 16:37 Dose: 3 ml Atorvastatin Calcium (Lipitor) 40 mg PO QAM [facility] Last Admin: 09/06/17 09:34 Dose: 40 mg Bisacodyl (Dulcolax) 10 mg RC DAILY PRN PRN Reason: constipation Last Admin: 09/01/17 09:39 Dose: 10 mg Bupropion HCl (Wellbutrin) 100 mg PO DAILY [facility] Last Admin: 09/06/17 09:34 Dose: 100 mg Cholecalciferol (Vitamin D) 1,000 intlu PO DAILY [facility] Last Admin: 09/06/17 09:34 Dose: 1,000 intlu Furosemide (Lasix) 20 mg IVP DAILY [facility] Last Admin: 09/01/17 09:40 Dose: 20 mg Guaifenesin (Robitussin) 100 mg PO Q4H PRN PRN Reason: Cough Last Admin: 08/30/17 21:22 Dose: 100 mg Hydromorphone HCl (Dilaudid) 1 mg IVP Q4H PRN PRN Reason: Pain, moderate (4-7) Last Admin: 09/06/17 09:35 Dose: 1 mg Daptomycin 480 mg/ Sodium (Chloride) 100 mls @ 200 mls/hr IV Q24H [facility] Stop: 09/07/17 11:01 Last Admin: 09/05/17 11:00 Dose: 200 mls/hr Levalbuterol HCl (Xopenex) 0.63 mg IH [id number] [facility] Last Admin: 09/06/17 07:08 Dose: 0.63 mg Levothyroxine Sodium (Synthroid) 175 mcg PO DAILY [facility] Last Admin: 09/06/17 09:34 Dose: 175 mcg Lisinopril (Zestril) 5 mg PO DAILY [facility] Last Admin: 09/01/17 09:42 Dose: 5 mg Mirtazapine (Remeron) 15 mg PO HS [facility] Last Admin: 09/05/17 22:11 Dose: 15 mg Montelukast Sodium (Singulair) 10 mg PO HS [facility] Last Admin: 09/05/17 22:12 Dose: 10 mg Polyethylene Glycol (Miralax) 17 gm PO BID [facility] Last Admin: 09/06/17 09:35 Dose: 17 gm Prednisone (Prednisone Tab) 20 mg PO DAILY [facility] Last Admin: 09/06/17 09:35 Dose: 20 mg Rivaroxaban (Xarelto) 10 mg PO DAILY [facility] PRN Reason: Protocol Last Admin: 09/06/17 09:34 Dose: 10 mg Tiotropium [place] (Spiriva) 18 mcg IH DAILY [facility] Last Admin: 09/06/17 09:35 Dose: 18 mcg Venlafaxine HCl (Effexor Xr) 75 mg PO DAILY [facility] Last Admin: 09/06/17 09:34 Dose: 75 mg - Labs Labs: 09/06/17 06:00 09/06/17 06:00 - Constitutional Appears: Non-toxic, Chronically Ill - Head Exam Head Exam: NORMAL INSPECTION - Respiratory Exam Respiratory Exam: Decreased Breath Sounds - Cardiovascular Exam Cardiovascular Exam: +S1, +S2 - GI/Abdominal Exam GI & Abdominal Exam: Soft. absent: Tenderness Assessment and Plan - Assessment and Plan (Free Text) Plan: Assessment sepsis due to bibasilar HCAP, also with Methicillin-resistant Staph aureus bacteremia, consider skin as the source multiple sclerosis CAD S/P PCI hypothyroidism COPD HTN dyslipidemia S/P right inguinal hernia repair S/P appendectomy significant smoking history Plan completed 7 days of Cefepime and Doxycycline continue Daptomycin day 6 from first negative blood cx and will need at least 2 weeks of antibiotics for the MRSA bacteremia - 2D echo is negative and the bacteremia is not persistent will continue to monitor clinically
[2017-09-07] MEDS: HYDROmorphone 2 mg/ml ISec IVP PRN ×5 (00:20→23:58)
[2017-09-07] MEDS: Levalbuterol 0.63 MG/3 ML Inhal Soln UD IH SCH ×4 (02:00→20:52)
--- NOTE | 2017-09-07 07:47 | PN ---
DATE: 09/07/2017 PULMONARY NOTE SUBJECTIVE: The patient appears comfortable this morning. He is not short of breath at rest. PHYSICAL EXAMINATION: VITAL SIGNS: (last noted in the computer): Temperature is 98.4, pulse is 90, respirations 18/20, blood pressure 130/70. Oxygen saturation on nasal cannula is 98%. HEENT: Normocephalic, atraumatic. No JVD. CARDIOVASCULAR: Positive S1, S2. No S3 gallop. LUNGS: Decreased breath sounds at the bases. Much less/minimal rhonchi. No wheezing. EXTREMITIES: No clubbing, cyanosis or edema. Calves are nontender to palpation. GI: Abdomen is soft, nontender and nondistended. Bowel sounds are positive. SKIN: No acute rash. NEUROLOGIC: Limited at the present time. IMPRESSION: 1. Multiple left-sided rib fractures. Status post fall. 2. Chronic obstructive pulmonary disease. 3. Mild bronchospasm. 4. Probable atelectasis at the bases. 5. Multiple sclerosis. PLAN: The patient appears comfortable this morning. He is not short of breath at rest. He does state to feeling much better overall. On physical exam, his bronchospasm continues to resolve. In addition, the alveolar arterial gradient also continues to resolve. I will continue with the current nebulizer treatments and decrease the oral steroids this morning. The patient is also reminded to use his incentive spirometer as much as possible, and be out of bed. Inputs by Infectious Disease and Internal Medicine are also noted. Clinical status of the patient is significantly improved. However, again, the future status/prognosis for this elderly patient does remain guarded. I will discuss the above with the attending physician. Amanuel Riggins MD [facility]
[2017-09-07] MEDS: POLYETHYLENE GLYCOL 3350 17 GM/Dose PACKET PO SCH ×2 (11:25→18:16)
[2017-09-07] MEDS: Venlafaxine 75 mg ER Cap PO SCH (11:25)
[2017-09-07] MEDS: Tiotropium 18 mcg Cap For Inhalation IH SCH (11:26)
[2017-09-07] MEDS: Cholecalciferol 1,000 INTLU TAB PO SCH (11:26)
[2017-09-07] MEDS: Levothyroxine 175 MCG TAB PO SCH (11:26)
--- NOTE | 2017-09-07 11:52 | PN ---
DATE: 09/07/2017 SUBJECTIVE: The patient is in bed, in no acute distress, was seen earlier in [facility], bed 1. No fevers and chills. He is complaining of severe rib pain and he states that the pain medications are not helping with rib pain. He has had no fever. Otherwise, had an uneventful night. PHYSICAL EXAMINATION: VITAL SIGNS: On exam, temperature is 98, blood pressure is 150/60, respiratory rate of 18. HEENT: Examination of HEENT is unremarkable. NECK: Supple. LUNGS: Have decreased breath sounds. HEART: Normal S1, S2. ABDOMEN: Soft, nontender. LABORATORY DATA: Laboratory examination reveals a white count to be 16,700, hemoglobin of 11, platelets of 366. Chemistries are noted. BUN of 29, creatinine of 1. Blood culture did have one bottle of MRSA. Review of orders reveals the patient to be on daptomycin which I will renew. Dr. Riggins's note is reviewed from this morning. ASSESSMENT AND PLAN: A 77-year-old with sepsis, bilateral healthcare-associated pneumonia, had methicillin-resistant Staphylococcus aureus bacteremia, possible skin as the source, with multiple sclerosis, coronary artery disease, hypothyroidism, dyslipidemia, hypertension and the patient is on day #7 of daptomycin for the methicillin-resistant Staphylococcus aureus bacteremia. Repeat cultures negative. Echo was negative. The patient has completed 8 days of cefepime and doxycycline. Currently, on daptomycin alone. Concerned about a sed rate of 125 and a C-reactive protein of 332. We will repeat those values and CPK, creatinine kinase and we will follow with you. Jak Gray MD
[2017-09-07] MEDS: Lidocaine 5% Patch TD SCH (12:00)
[2017-09-07] MEDS: Oxycodone/Acetaminophen 5/325 mg Tab PO SCH ×2 (12:00→21:34)
--- NOTE | 2017-09-08 00:18 | PN ---
DATE: 09/07/2017 SUBJECTIVE: Patient is 77 years old, seen and examined, complaining of pain in the left mid chest area. Otherwise, having difficulty taking deep breath. No nausea, vomiting, or diarrhea. No fever, no chills. Eating and tolerating. PHYSICAL EXAMINATION: VITAL SIGNS: Afebrile, pulse 66, respirations 20, blood pressure 116/72. LUNGS: Bilateral fair airflow. No rhonchi or crackle. HEART: S1 and S2 audible. ABDOMEN: Soft, obese, nontender. No rebound. No guarding. NEUROLOGICAL: He is awake, alert, oriented, able to communicate, ambulatory with some difficulty. Complaining of pain in the left lower chest upon ambulation and making certain movements. LABORATORY DATA: WBC 16.7, hemoglobin 11.2, hematocrit 34.6, platelet 366. Chemistry: Sodium 141, potassium 4.4, chloride 107, CO2 26, BUN 29, creatinine 1. AST 63, ALT 71. One blood culture positive for MRSA. Repeat cultures are negative. There is a well-defined lipoma in the rectus femoris muscle on CT scan of the leg. ASSESSMENT: 1. Status post fall and left chest contusion. 2. Bibasilar infiltrates. 3. Methicillin-resistant Staphylococcus aureus bacteremia 4. History of multiple sclerosis with chronic right-sided weakness. 5. Coronary artery disease, status post angioplasty. 6. Hypothyroidism. 7. Chronic obstructive pulmonary disease. 8. Hyperlipidemia. 9. Hearing impairment. 10. Multiple left rib fractures. PLAN: Currently patient is on analgesic. He is on laxative. Continue nebulizer treatment. He is on Lasix 20 mg daily. I will order for 5% Lidoderm patch in the left mid chest area. I will give him Percocet 3 times a day and Dilaudid as needed. He is on small dose of steroid for his COPD. He is also on Xarelto. He is encouraged to have incentive spirometry. We will follow up his CBC and CMP in a.m. Eileen Florez MD
[2017-09-08] MEDS: Levalbuterol 0.63 MG/3 ML Inhal Soln UD IH SCH ×4 (01:18→20:07)
[2017-09-08] MEDS: Oxycodone/Acetaminophen 5/325 mg Tab PO SCH ×2 (05:59→11:29)
[2017-09-08 06:55] LABS: ALT/SGPT 61 U/L (7-56); AST/SGOT 64 U/L (17-59); BLOOD UREA NITROGEN 26 mg/dL (7-21); CALCIUM 8.7 mg/dL (8.4-10.5); GFR AFRICAN-AMERICAN > 60; GFR NON-AFRICAN AMERICAN > 60
[2017-09-08 07:04] LABS: BASO # 0.12 K/mm3 (0.0-2.0); BASO % 0.7 % (0.0-3.0); EOS # 0.4 (0.0-0.7); EOS % 2.6 % (1.5-5.0); GRAN # 9.28 (1.4-6.5); GRAN % 57.2 % (50.0-68.0); HEMOGLOBIN 11.1 g/dL (14.0-18.0); LYMPH # 5.4 (1.2-3.4); LYMPH % 33.4 % (22.0-35.0); MEAN CORPUSCULAR HEMOGLOBIN 27.3 pg (25.0-35.0); MEAN CORPUSCULAR HGB CONC 32.2 g/dl (31.0-37.0); MEAN PLATELET VOLUME 8.9 fl (7.0-11.0); MONO % 6.1 % (1.0-6.0); PLATELET COUNT 392 10^3/uL (120.0-450.0); RBC 4.06 10^6/uL (3.5-6.1); RED CELL DISTRIBUTION WIDTH 15.4 % (11.5-14.5); WHITE BLOOD COUNT 16.2 10^3/ul (4.5-11.0)
--- NOTE | 2017-09-08 08:13 | PN ---
DATE: 09/08/2017 PULMONARY NOTE SUBJECTIVE: The patient appears comfortable this morning. He is not short of breath at rest. PHYSICAL EXAMINATION: VITALS: (Last noted in the computer): Temperature is 98.2, pulse 66, respirations 18/20, blood pressure 116/72. Oxygen saturation on nasal cannula is 99%. HEENT: Normocephalic, atraumatic. No JVD. CARDIOVASCULAR: Positive S1, S2. No S3 gallop. LUNGS: Improved breath sounds at the bases. Very minimal/less rhonchi. No wheezing. EXTREMITIES: No clubbing, cyanosis or edema. Calves are nontender to palpation. GI: Abdomen is soft, nontender and nondistended. Bowel sounds are positive. SKIN: No acute rash. NEUROLOGIC: Limited at the present time. IMPRESSION: 1. Multiple left-sided rib fractures. Status post fall. 2. Chronic obstructive pulmonary disease. 3. Mild bronchospasm. 4. Probable atelectasis at the bases. 5. Multiple sclerosis. Plan: The patient appears comfortable this morning. He is not short of breath at rest. He does state to feeling much better overall. On physical exam, his bronchospasm continues to resolve. In addition, the oxygen saturation on nasal cannula is now 99%. I will continue the current nebulizer treatments and low-dose oral steroids for now. The patient is also using his incentive spirometer, and out of bed as much as possible. Clinical status of the patient is significantly improved overall. However, the future status/prognosis for this patient does remain somewhat guarded. I will discuss the above with the attending physician. Amanuel Riggins MD MTDD
[2017-09-08] MEDS: HYDROmorphone 2 mg/ml ISec IVP PRN ×3 (09:27→23:14)
[2017-09-08] MEDS: Tiotropium 18 mcg Cap For Inhalation IH SCH (09:28)
[2017-09-08] MEDS: Levothyroxine 175 MCG TAB PO SCH (09:28)
[2017-09-08] MEDS: Cholecalciferol 1,000 INTLU TAB PO SCH (09:28)
[2017-09-08] MEDS: POLYETHYLENE GLYCOL 3350 17 GM/Dose PACKET PO SCH ×2 (09:29→17:27)
[2017-09-08] MEDS: Lidocaine 5% Patch TD SCH (09:29)
[2017-09-08] MEDS: Venlafaxine 75 mg ER Cap PO SCH (09:31)
[2017-09-08] MEDS ORDERED: DAPTOmycin 500 mg Inj (Cubicin) IV SCH (09:45)
[2017-09-08 10:29] LABS: EOSINOPHIL 3 % (0.0-3.0); LYMPHOCYTE 34 % (22.0-35.0); METAMYELOCYTE 2 %; MONOCYTE 6 % (1.0-6.0); MYELOCYTE 2 %; NEUTROPHIL 53 % (50.0-70.0); NUCLEATED RED BLOOD CELL 1 %
--- NOTE | 2017-09-08 10:56 | PN ---
DATE: 09/08/2017 SUBJECTIVE: The patient is in bed, in no acute distress, nontoxic. PHYSICAL EXAMINATION: VITAL SIGNS: Temperature is 97, blood pressure is 150/80, respiratory rate of 20, heart rate of 60. HEENT: Examination of HEENT is unremarkable. NECK: Supple. LUNGS: Have decreased breath sounds. HEART: Normal S1, S2. ABDOMEN: Soft, nontender. LABORATORY DATA: Laboratory examination reveals a white count of 16,200, hemoglobin 11, platelets of 392. Chemistries reveals a BUN of 26, creatinine of 1. C-reactive protein is 29 and the procalcitonin is elevated at 3.46. Urinalysis is noted. Immunology is noted. Microbiology reveals blood with culture is positive for MRSA, one bottle. The REJI of vancomycin is 1. Review of orders reveals the patient is on prednisone and the patient is supposed to be on daptomycin. Daptomycin was discontinued by pharmacy yesterday. ASSESSMENT AND PLAN: This is a 77-year-old male with sepsis, bilateral healthcare-associated pneumonia, methicillin-resistant Staphylococcus aureus bacteremia, possibly skin as the source in a patient with multiple sclerosis, coronary artery disease, hypothyroidism, dyslipidemia, hypertension and day #8 of daptomycin for Staphylococcus aureus bacteremia. Echocardiogram was negative. However, an elevated sedimentation rate of 125 and C-reactive protein of 325 is concerning. We will restart the daptomycin since pharmacy stopped the daptomycin yesterday at 6 mg/kg. Hopefully, the patient did not miss any daptomycin dosing. C-reactive protein from yesterday is 29.7, which is a much decrease from 333 and a sedimentation rate yesterday 76 from a decrease of 125. From 125 to 76, which is also greatly improved. The patient's CPK from yesterday is 69. Jak Gray MD
--- NOTE | 2017-09-08 17:08 | PN ---
DATE: 09/08/2017 SUBJECTIVE: The patient is 77 years old, sitting in chair. Complained of left-sided chest pain, especially when he takes deep breath, cough or sneeze. He states only Dilaudid is working. PHYSICAL EXAMINATION: VITAL SIGNS: He is afebrile, pulse 50, respirations 20, blood pressure 158/87. LUNGS: Bilateral fair airflow. No rhonchi or crackle. HEART: S1 and S2 audible. ABDOMEN: Soft. CHEST: He has left chest palpable discomfort in the mid to lower left ribcage area. No evident ecchymosis. LABORATORY EXAM: WBC 16.2, hemoglobin 11, hematocrit 34.5, platelet Of 392. Chemistry: Sodium 141, potassium 3.8, chloride 104, CO2 of 28, BUN 26, creatinine 1, blood sugar of 88. ASSESSMENT: 1. Status post fall. 2. Left chest contusion with rib fracture. 3. Bibasilar infiltrate. 4. Methicillin-resistant Staphylococcus aureus bacteremia. Followup cultures are negative. 5. History of multiple sclerosis. 6. Coronary artery disease, status post angioplasty. 7. Hypothyroidism. 8. Hearing impairment. PLAN: The patient is on scheduled dose of Percocet and he is getting Dilaudid in between for severe pain. He has been started on daptomycin. We will continue laxative. He is on Xarelto. TCU evaluation has been requested. If accepted, he can be transferred to TCU. Eileen Florez MD
[2017-09-09] MEDS: Levalbuterol 0.63 MG/3 ML Inhal Soln UD IH SCH ×4 (02:05→20:09)
[2017-09-09] MEDS: HYDROmorphone 2 mg/ml ISec IVP PRN ×4 (05:01→21:24)
--- NOTE | 2017-09-09 07:53 | PN ---
DATE: 09/09/2017 PULMONARY NOTE SUBJECTIVE: The patient appears comfortable this morning. He is not short of breath at rest. OBJECTIVE: VITAL SIGNS (last noted in the computer): Temperature is 97.9, pulse 89, respirations 18/20, blood pressure 118/65. Oxygen saturation on nasal cannula is 97%. HEENT: Normocephalic, atraumatic. No JVD. CARDIOVASCULAR: Positive S1, S2. No S3 gallop. LUNGS: Very minimal/less rhonchi. No wheezing. EXTREMITIES: No clubbing, cyanosis or edema. Calves are nontender to palpation. GI: Abdomen is soft, nontender and nondistended. Bowel sounds are positive. SKIN: No acute rash. NEUROLOGIC: Exam limited at the present time. IMPRESSION: 1. Multiple left-sided rib fractures. Status post fall. 2. Chronic obstructive pulmonary disease. 3. Mild bronchospasm. 4. Probable atelectasis at the bases. 5. Multiple sclerosis. PLAN: The patient appears comfortable this morning. He is not short of breath at rest. He does state to feeling much better overall. On physical exam, his bronchospasm continues to resolve. In addition, the alveolar arterial gradient also continues to resolve. I will continue with the current nebulizer treatments and very low-dose oral steroids for now. The patient is also using his incentive spirometer, and out of bed as much as possible. Clinical status of the patient is significantly improved - compared to the initial presentation. The patient remains on antibiotic therapy - as per Infectious Disease. I will discuss the above with Dr. Osborne. Amanuel Riggins MD [facility]
[2017-09-09] MEDS: Lidocaine 5% Patch TD SCH (09:30)
[2017-09-09] MEDS: Tiotropium 18 mcg Cap For Inhalation IH SCH (09:30)
[2017-09-09] MEDS: Venlafaxine 75 mg ER Cap PO SCH (09:30)
[2017-09-09] MEDS: POLYETHYLENE GLYCOL 3350 17 GM/Dose PACKET PO SCH ×2 (09:30→17:03)
[2017-09-09] MEDS: Levothyroxine 175 MCG TAB PO SCH (09:30)
[2017-09-09] MEDS: Cholecalciferol 1,000 INTLU TAB PO SCH (09:31)
--- NOTE | 2017-09-09 10:06 | CP.PCM.PN ---
<Dalia Fuchs - Last Filed: 09/09/17 11:37> Subjective - Date & Time of Evaluation Date of Evaluation: 09/09/17 Time of Evaluation: 07:00 - Subjective Subjective: PGY-[address] Osborne No acute complain. Pt is tolerating PT/OT with PRN dilaudid for rib pain. Denies F/C, CP, SOB, N/V/D/C, dysuria Objective - Vital Signs/Intake and Output Vital Signs (last 24 hours): Temp Pulse Resp BP Pulse Ox 97.7 F 49 L 21 136/54 L 97 09/09/17 08:32 09/09/17 08:32 09/09/17 08:32 09/09/17 08:32 09/08/17 16:56 Intake and Output: 09/09/17 09/09/17 06:59 18:59 Intake Total 660 600 Output Total 400 175 Balance 260 425 - Medications Medications: Current Medications Acetaminophen (Tylenol 325mg Tab) 650 mg PO Q6H PRN PRN Reason: Fever >100.4 F Albuterol/Ipratropium (Duoneb 3 Mg/0.5 Mg (3 Ml) Ud) 3 ml IH Q3 PRN PRN Reason: Cough and congestion Last Admin: 09/03/17 16:37 Dose: 3 ml Atorvastatin Calcium (Lipitor) 40 mg PO QAM [facility] Last Admin: 09/09/17 09:30 Dose: 40 mg Bisacodyl (Dulcolax) 10 mg RC DAILY PRN PRN Reason: constipation Last Admin: 09/01/17 09:39 Dose: 10 mg Bupropion HCl (Wellbutrin) 100 mg PO DAILY [facility] Last Admin: 09/09/17 09:31 Dose: 100 mg Cholecalciferol (Vitamin D) 1,000 intlu PO DAILY [facility] Last Admin: 09/09/17 09:31 Dose: 1,000 intlu Furosemide (Lasix) 20 mg IVP DAILY [facility] Last Admin: 09/01/17 09:40 Dose: 20 mg Guaifenesin (Robitussin) 100 mg PO Q4H PRN PRN Reason: Cough Last Admin: 08/30/17 21:22 Dose: 100 mg Hydromorphone HCl (Dilaudid) 1 mg IVP Q4H PRN PRN Reason: Pain, moderate (4-7) Last Admin: 09/09/17 09:29 Dose: 1 mg Daptomycin 480 mg/ Sodium (Chloride) 100 mls @ 200 mls/hr IV Q24H [facility] Stop: 09/17/17 10:01 Last Admin: 09/09/17 09:31 Dose: 200 mls/hr Levalbuterol HCl (Xopenex) 0.63 mg IH [id number] [facility] Last Admin: 09/09/17 08:03 Dose: 0.63 mg Levothyroxine Sodium (Synthroid) 175 mcg PO DAILY BUD Last Admin: 09/09/17 09:30 Dose: 175 mcg Lidocaine (Lidoderm) 1 ea TD DAILY [facility] Last Admin: 09/09/17 09:30 Dose: 1 ea Lisinopril (Zestril) 5 mg PO DAILY [facility] Last Admin: 09/01/17 09:42 Dose: 5 mg Mirtazapine (Remeron) 15 mg PO HS [facility] Last Admin: 09/08/17 21:20 Dose: 15 mg Montelukast Sodium (Singulair) 10 mg PO HS [facility] Last Admin: 09/08/17 21:20 Dose: 10 mg Oxycodone/Acetaminophen (Percocet 5/325 Mg Tab) 1 tab PO Q8H [facility] Stop: 09/10/17 12:01 Last Admin: 09/08/17 11:29 Dose: 1 tab Polyethylene Glycol (Miralax) 17 gm PO BID [facility] Last Admin: 09/09/17 09:30 Dose: 17 gm Prednisone (Prednisone Tab) 10 mg PO DAILY [facility] Last Admin: 09/09/17 09:30 Dose: 10 mg Rivaroxaban (Xarelto) 10 mg PO DAILY [facility] PRN Reason: Protocol Last Admin: 09/09/17 09:30 Dose: 10 mg Tiotropium [place] (Spiriva) 18 mcg IH DAILY [facility] Last Admin: 09/09/17 09:30 Dose: 18 mcg Venlafaxine HCl (Effexor Xr) 75 mg PO DAILY [facility] Last Admin: 09/09/17 09:30 Dose: 75 mg - Labs Labs: 09/08/17 05:30 09/08/17 05:30 - Constitutional Appears: No Acute Distress - Head Exam Head Exam: ATRAUMATIC, NORMAL INSPECTION, NORMOCEPHALIC - Eye Exam Eye Exam: EOMI, Normal appearance, PERRL. absent: Scleral icterus Pupil Exam: NORMAL ACCOMODATION - ENT Exam ENT Exam: Mucous Membranes Moist - Neck Exam Additional comments: supple. No JVD - Respiratory Exam Respiratory Exam: Decreased Breath Sounds (On chest binder), Clear to Ausculation Bilateral. absent: Rales, Rhonchi, Wheezes - Cardiovascular Exam Cardiovascular Exam: REGULAR RHYTHM, +S1, +S2. absent: Murmur - GI/Abdominal Exam GI & Abdominal Exam: Soft, Normal Bowel Sounds. absent: Tenderness - Extremities Exam Extremities Exam: absent: Calf Tenderness, Pedal Edema, Tenderness - Neurological Exam Neurological Exam: Alert, Awake, Oriented x3 - Psychiatric Exam Psychiatric exam: Normal Affect, Normal Mood - Skin Skin Exam: Dry, Warm Assessment and Plan - Assessment and Plan (Free Text) Plan: Mr Dueñas, 77M, with PMH MS, CAD s/p 2 stents, A-fib, COPD, hypothyroidism, hydrocele, presents with left-sided rib fractures s/p fall. He was found to be septic with HAP and MRSA bactermia. JOSIAH has resolved with fluid hydration. CT R lower extremities showed lipoma. A: Sepsis - bilateral healthcare-associated PNA, PMHx COPD - MRSA bactermia (08/31; Negative since 09/01) - Echo: no definite vegitations with LVEF of 48.7% s/p Fall, Multiple L ribs fracture with pain Hx CAD, A-fib, Dyslipidemia, HTN Hx multiple sclerosis Hypothyroidism Hearing impairment P: Daptomycin @ 6mg/kg, Day __9__; R arm mid-line; finished course of cefepime. Maintain contact isolation Prednisone taper to 10 per pulm Xopenex Q6 bud, Duoneb PRN, Guaifenesin PRN Montelukast, Tiotropium for chronic COPD For rib fracture and fall, Continued percocet Q8 BUD, Lidoderm BUD, dilaudid PRN ; Incentive spirometer; HOB 30 Continue PT/OT. OOB with assist ASA, Lipitor 40; lisinopril 5 Xarelto Lasix on hold laxative prn Levothyroxine 175 Buproprion 100 daily, mirtazapine 15 HS, venlafaxine [facility] diet; Vit D Prophylaxis - on xarelto and pepcid TCU eval Consults: Gilson Mcguire, Kaitlin Faith, Donta s/r/d/w Dr. Osborne <Ap Osborne S - Last Filed: 09/09/17 18:07> Objective - Vital Signs/Intake and Output Vital Signs (last 24 hours): Temp Pulse Resp BP Pulse Ox 97.2 F L 48 L 20 125/56 L 94 L 09/09/17 17:27 09/09/17 17:27 09/09/17 17:27 09/09/17 17:27 09/09/17 17:27 Intake and Output: 09/09/17 09/09/17 06:59 18:59 Intake Total 660 600 Output Total 400 175 Balance 260 425 - Medications Medications: Current Medications Acetaminophen (Tylenol 325mg Tab) 650 mg PO Q6H PRN PRN Reason: Fever >100.4 F Albuterol/Ipratropium (Duoneb 3 Mg/0.5 Mg (3 Ml) Ud) 3 ml IH Q3 PRN PRN Reason: Cough and congestion Last Admin: 09/03/17 16:37 Dose: 3 ml Atorvastatin Calcium (Lipitor) 40 mg PO QAM BUD Last Admin: 09/09/17 09:30 Dose: 40 mg Bisacodyl (Dulcolax) 10 mg RC DAILY PRN PRN Reason: constipation Last Admin: 09/01/17 09:39 Dose: 10 mg Bupropion HCl (Wellbutrin) 100 mg PO DAILY BUD Last Admin: 09/09/17 09:31 Dose: 100 mg Cholecalciferol (Vitamin D) 1,000 intlu PO DAILY BUD Last Admin: 09/09/17 09:31 Dose: 1,000 intlu Famotidine (Pepcid) 40 mg PO HS BUD Furosemide (Lasix) 20 mg IVP DAILY BUD Last Admin: 09/01/17 09:40 Dose: 20 mg Guaifenesin (Robitussin) 100 mg PO Q4H PRN PRN Reason: Cough Last Admin: 08/30/17 21:22 Dose: 100 mg Hydromorphone HCl (Dilaudid) 1 mg IVP Q4H PRN PRN Reason: Pain, moderate (4-7) Last Admin: 09/09/17 15:45 Dose: 1 mg Daptomycin 480 mg/ Sodium (Chloride) 100 mls @ 200 mls/hr IV Q24H [facility] Stop: 09/17/17 10:01 Last Admin: 09/09/17 09:31 Dose: 200 mls/hr Levalbuterol HCl (Xopenex) 0.63 mg IH [id number] [facility] Last Admin: 09/09/17 13:13 Dose: 0.63 mg Levothyroxine Sodium (Synthroid) 175 mcg PO DAILY [facility] Last Admin: 09/09/17 09:30 Dose: 175 mcg Lidocaine (Lidoderm) 1 ea TD DAILY [facility] Last Admin: 09/09/17 09:30 Dose: 1 ea Lisinopril (Zestril) 5 mg PO DAILY [facility] Last Admin: 09/01/17 09:42 Dose: 5 mg Mirtazapine (Remeron) 15 mg PO HS [facility] Last Admin: 09/08/17 21:20 Dose: 15 mg Montelukast Sodium (Singulair) 10 mg PO HS [facility] Last Admin: 09/08/17 21:20 Dose: 10 mg Oxycodone/Acetaminophen (Percocet 5/325 Mg Tab) 1 tab PO Q8H [facility] Stop: 09/10/17 12:01 Last Admin: 09/09/17 12:00 Dose: 1 tab Polyethylene Glycol (Miralax) 17 gm PO BID [facility] Last Admin: 09/09/17 17:03 Dose: Not Given Prednisone (Prednisone Tab) 10 mg PO DAILY [facility] Last Admin: 09/09/17 09:30 Dose: 10 mg Rivaroxaban (Xarelto) 10 mg PO DAILY [facility] PRN Reason: Protocol Last Admin: 09/09/17 09:30 Dose: 10 mg Tiotropium [place] (Spiriva) 18 mcg IH DAILY [facility] Last Admin: 09/09/17 09:30 Dose: 18 mcg Venlafaxine HCl (Effexor Xr) 75 mg PO DAILY [facility] Last Admin: 09/09/17 09:30 Dose: 75 mg - Labs Labs: 09/08/17 05:30 09/08/17 05:30 Assessment and Plan - Assessment and Plan (Free Text) Plan: Pt seen and examined. I have reviewed the note of the anesthesiology medical doctor and agree with it. I have discussed the assessment and plan with the resident. I have reviewed the patient's labs and medications. Pt with HTN and dyslipidemia. L rib fx is slowly improving. Waiting for pt to finish IV Abx to be discharged from hospital to [facility].Pt is on 9/14 days of Abx. Pt on Lipitor and Dapto, will need to follow CKP levels for risk of rhabdo. Will hold lipitor wild pt is on Dapto to decrease risk.
[2017-09-09] MEDS: Oxycodone/Acetaminophen 5/325 mg Tab PO SCH (12:00)
--- NOTE | 2017-09-09 15:35 | PN ---
DATE: 09/09/2017 NEUROLOGY FOLLOWUP CHIEF COMPLAINT: Followup for history of MS. SUBJECTIVE: The patient has no acute complaint. The patient is tolerating PT/OT with p.r.n. Dilaudid for rib pain. Denies any change of sensory, vision, taste or smell. No new focal paresthesias or weakness of the extremities. He follows Dr. Spangler for his underlying multiple sclerosis and has IV Tysabri. He was found to be septic with a hospital acquired pneumonia and MRSA bacteremia. He is on daptomycin. He will be going to a rehabilitation. He is currently stable from a neurological standpoint. PAST MEDICAL HISTORY: CAD; history of multiple sclerosis, on Tysabri infusions; coronary artery disease, status post 2 stents; AFib; COPD; hypothyroidism; hydrocele. REVIEW OF SYSTEMS: Fourteen-point review of systems is negative except as per the HPI. FAMILY HISTORY: Noncontributory. MEDICATIONS: Reviewed by nurses' reconciliation sheet. LABORATORY DATA: Sodium is 141, potassium 3.8, chloride 104, carbon dioxide 27, BUN of 26, creatinine 1, random glucose of 88. PHYSICAL EXAMINATION: GENERAL: The patient is sitting up in bed, in no acute distress. VITAL SIGNS: Temperature is 97.7, pulse rate of 89, blood pressure 136/54, respiratory rate of 21, oxygen saturation 96% by room air. HEENT: Atraumatic, normocephalic. PERRLA. Extraocular muscles intact. NECK: Supple. No JVD, no adenopathy noted. LUNGS: Clear to auscultation. No adventitious sounds. HEART: S1, S2. Normal rate and rhythm. No murmurs, rubs or gallops. ABDOMEN: Soft, nontender and nondistended. Bowel sounds are present. EXTREMITIES: No clubbing. No cyanosis. Peripheral pulses 2+ felt bilaterally. NEUROLOGIC: The patient is alert and oriented to person, place, month and year. Speech is fluent without any errors. Cranial nerves II through XII are intact. Motor exam: Slight increased tone throughout, especially in the lower extremities. Moves all extremities equally. Sensory exam: Light touch, pinprick, proprioception and vibration are intact. DTRs are 2+ throughout. Strength in the lower extremities is 5-/5. Coordination: [id number] intact. Gait is deferred for now. ASSESSMENT AND PLAN: This is a 77-year-old man with past medical history of multiple sclerosis, on IV Tysabri, sees Dr. Spangler, his neurologist as an outpatient; coronary artery disease, status post 2 stents; atrial fibrillation; chronic obstructive pulmonary disease; hypothyroidism; left-sided rib fracture status post mechanical fall. He was found to be septic with hospital-acquired pneumonia and methicillin-resistant Staphylococcus aureus bacteremia, which he is on daptomycin. His acute kidney injury has resolved with fluid hydration and the CT of his right lower extremity shows lipoma. At this time, continue with his underlying antibiotics in regards to his bilateral healthcare-associated pneumonia and continue to follow up with his neurologist, Dr. Spangler, for his underlying multiple sclerosis. Recommend subacute rehabilitation and PT, OT. Continue with current present medical management. Thank you for this followup. Tao Longo MD
--- NOTE | 2017-09-09 16:20 | CP.PCM.PN ---
Subjective - Date & Time of Evaluation Date of Evaluation: 09/09/17 Time of Evaluation: 13:10 - Subjective Subjective: Still with left sided rib pain, no fevers, no nausea, no diarrhea. Objective - Vital Signs/Intake and Output Vital Signs (last 24 hours): Temp Pulse Resp BP Pulse Ox 97.7 F 49 L 21 136/54 L 97 09/09/17 08:32 09/09/17 08:32 09/09/17 08:32 09/09/17 08:32 09/08/17 16:56 Intake and Output: 09/09/17 09/09/17 06:59 18:59 Intake Total 660 600 Output Total 400 175 Balance 260 425 - Medications Medications: Current Medications Acetaminophen (Tylenol 325mg Tab) 650 mg PO Q6H PRN PRN Reason: Fever >100.4 F Albuterol/Ipratropium (Duoneb 3 Mg/0.5 Mg (3 Ml) Ud) 3 ml IH Q3 PRN PRN Reason: Cough and congestion Last Admin: 09/03/17 16:37 Dose: 3 ml Atorvastatin Calcium (Lipitor) 40 mg PO QAM [facility] Last Admin: 09/09/17 09:30 Dose: 40 mg Bisacodyl (Dulcolax) 10 mg RC DAILY PRN PRN Reason: constipation Last Admin: 09/01/17 09:39 Dose: 10 mg Bupropion HCl (Wellbutrin) 100 mg PO DAILY [facility] Last Admin: 09/09/17 09:31 Dose: 100 mg Cholecalciferol (Vitamin D) 1,000 intlu PO DAILY [facility] Last Admin: 09/09/17 09:31 Dose: 1,000 intlu Furosemide (Lasix) 20 mg IVP DAILY [facility] Last Admin: 09/01/17 09:40 Dose: 20 mg Guaifenesin (Robitussin) 100 mg PO Q4H PRN PRN Reason: Cough Last Admin: 08/30/17 21:22 Dose: 100 mg Hydromorphone HCl (Dilaudid) 1 mg IVP Q4H PRN PRN Reason: Pain, moderate (4-7) Last Admin: 09/09/17 09:29 Dose: 1 mg Daptomycin 480 mg/ Sodium (Chloride) 100 mls @ 200 mls/hr IV Q24H [facility] Stop: 08/07/18 10:01 Last Admin: 09/09/17 09:31 Dose: 200 mls/hr Levalbuterol HCl (Xopenex) 0.63 mg IH [id number] [facility] Last Admin: 09/09/17 08:03 Dose: 0.63 mg Levothyroxine Sodium (Synthroid) 175 mcg PO DAILY [facility] Last Admin: 09/09/17 09:30 Dose: 175 mcg Lidocaine (Lidoderm) 1 ea TD DAILY [facility] Last Admin: 09/09/17 09:30 Dose: 1 ea Lisinopril (Zestril) 5 mg PO DAILY [facility] Last Admin: 09/01/17 09:42 Dose: 5 mg Mirtazapine (Remeron) 15 mg PO HS [facility] Last Admin: 09/08/17 21:20 Dose: 15 mg Montelukast Sodium (Singulair) 10 mg PO HS [facility] Last Admin: 09/08/17 21:20 Dose: 10 mg Oxycodone/Acetaminophen (Percocet 5/325 Mg Tab) 1 tab PO Q8H [facility] Stop: 09/10/17 12:01 Last Admin: 09/08/17 11:29 Dose: 1 tab Polyethylene Glycol (Miralax) 17 gm PO BID [facility] Last Admin: 09/09/17 09:30 Dose: 17 gm Prednisone (Prednisone Tab) 10 mg PO DAILY [facility] Last Admin: 09/09/17 09:30 Dose: 10 mg Rivaroxaban (Xarelto) 10 mg PO DAILY [facility] PRN Reason: Protocol Last Admin: 09/09/17 09:30 Dose: 10 mg Tiotropium [place] (Spiriva) 18 mcg IH DAILY [facility] Last Admin: 09/09/17 09:30 Dose: 18 mcg Venlafaxine HCl (Effexor Xr) 75 mg PO DAILY [facility] Last Admin: 09/09/17 09:30 Dose: 75 mg - Labs Labs: 09/08/17 05:30 09/08/17 05:30 - Constitutional Appears: Chronically Ill - Head Exam Head Exam: NORMAL INSPECTION - ENT Exam ENT Exam: Mucous Membranes Moist - Neck Exam Neck Exam: absent: Lymphadenopathy, Meningismus - Respiratory Exam Respiratory Exam: Decreased Breath Sounds - Cardiovascular Exam Cardiovascular Exam: +S1, +S2 - GI/Abdominal Exam GI & Abdominal Exam: Soft. absent: Tenderness Assessment and Plan - Assessment and Plan (Free Text) Plan: Assessment sepsis due to Methicillin-resistant Staph aureus bacteremia, consider skin as the source, S/P bibasilar HCAP multiple sclerosis CAD S/P PCI hypothyroidism COPD HTN dyslipidemia S/P right inguinal hernia repair S/P appendectomy significant smoking history Plan completed 7 days of Cefepime and Doxycycline continue Daptomycin day 9 from first negative blood cx and will need at least 2 weeks of antibiotics for the MRSA bacteremia - 2D echo is negative and the bacteremia is not persistent will continue to monitor clinically
[2017-09-09 17:28] VITALS: RESP 20
[2017-09-10] MEDS: Levalbuterol 0.63 MG/3 ML Inhal Soln UD IH SCH ×3 (01:16→13:17)
[2017-09-10] MEDS: HYDROmorphone 2 mg/ml ISec IVP PRN ×4 (01:26→14:36)
[2017-09-10 07:06] LABS: BASO # 0.09 K/mm3 (0.0-2.0); BASO % 0.6 % (0.0-3.0); EOS # 0.3 (0.0-0.7); EOS % 1.7 % (1.5-5.0); GRAN # 9.73 (1.4-6.5); GRAN % 60.8 % (50.0-68.0); HEMOGLOBIN 11.9 g/dL (14.0-18.0); LYMPH # 4.9 (1.2-3.4); LYMPH % 30.7 % (22.0-35.0); MEAN CELL VOLUME 85.8 fl (80.0-105.0); MEAN CORPUSCULAR HEMOGLOBIN 27.7 pg (25.0-35.0); MEAN CORPUSCULAR HGB CONC 32.3 g/dl (31.0-37.0); MONO % 6.2 % (1.0-6.0); RBC 4.29 10^6/uL (3.5-6.1); RED CELL DISTRIBUTION WIDTH 15.8 % (11.5-14.5)
[2017-09-10 07:27] LABS: ALB/GLOB RATIO 1.1 (1.1-1.8); ALBUMIN 3.4 g/dL (3.0-4.8); ALT/SGPT 55 U/L (7-56); AST/SGOT 45 U/L (17-59); BLOOD UREA NITROGEN 21 mg/dL (7-21); CALCIUM 9.1 mg/dL (8.4-10.5); GFR AFRICAN-AMERICAN > 60; GFR NON-AFRICAN AMERICAN > 60
--- NOTE | 2017-09-10 08:06 | PN ---
Copied To: Amanuel Riggins MD Attending MD: Amanuel Riggins MD. DATE: 09/10/2017 PULMONARY NOTE SUBJECTIVE: The patient appears comfortable this morning. He is not short of breath at rest. OBJECTIVE: VITAL SIGNS (last noted in the computer): Temperature is 97.2, pulse 48, respirations 18/20, blood pressure 125/56. Oxygen saturation on room air is 94-97%. HEENT: Normocephalic, atraumatic. No JVD. CARDIOVASCULAR: Positive S1, S2. No S3 gallop. LUNGS: Very minimal/less rhonchi. No wheezing. EXTREMITIES: No clubbing, cyanosis or edema. Calves are nontender to palpation. GI: Abdomen is soft, nontender and nondistended. Bowel sounds are positive. SKIN: No acute rash. NEUROLOGIC: Exam limited at the present time. IMPRESSION: 1. Multiple left-sided rib fractures. Status post fall. 2. Chronic obstructive pulmonary disease. 3. Mild bronchospasm. 4. Probable atelectasis at the bases. 5. Multiple sclerosis. PLAN: The patient appears comfortable this morning. He is not short of breath at rest. He does state to feeling much better overall. On physical exam, his bronchospasm is now minimal. In addition, the alveolar-arterial gradient is also much less. I will continue with the current nebulizer treatments and low-dose oral steroids for now. The patient remains on antibiotic therapy - as per Infectious Disease. There are no temperatures noted. Repeat labs are pending. Clinical status of the patient is significantly improved - compared to his initial presentation. However, again, the overall status/prognosis for this patient does remain guarded. I will discuss the above with Dr. Osborne. Amanuel Riggins MD [place]
[2017-09-10 08:40] VITALS: PULSE 52; TEMP 97.5; O2SAT 97
[2017-09-10] MEDS: Cholecalciferol 1,000 INTLU TAB PO SCH (09:58)
[2017-09-10] MEDS: Lidocaine 5% Patch TD SCH (09:58)
[2017-09-10] MEDS: Tiotropium 18 mcg Cap For Inhalation IH SCH (09:58)
[2017-09-10] MEDS: POLYETHYLENE GLYCOL 3350 17 GM/Dose PACKET PO SCH (09:58)
[2017-09-10] MEDS: Venlafaxine 75 mg ER Cap PO SCH (09:58)
--- NOTE | 2017-09-10 10:22 | RAD ---
Date of service: 09/10/2017 HISTORY: persisent L sided pain COMPARISON: 08/31/2017 FINDINGS: LUNGS: There is no change in the infiltrate at the right lung base. PLEURA: No significant pleural effusion identified, no pneumothorax apparent. CARDIOVASCULAR: Mild cardiomegaly OSSEOUS STRUCTURES: No significant abnormalities. VISUALIZED UPPER ABDOMEN: Normal. OTHER FINDINGS: None. IMPRESSION: Right lower lobe infiltrate unchanged
--- NOTE | 2017-09-10 10:24 | CP.PCM.PN ---
Addendum entered and electronically signed by Dalia Fuchs DO 09/10/17 10:35 : Add heme consult for persistent leukocytosis. CXR to compare L lung shadow Original Note: <Dalia Fuchs - Last Filed: 09/10/17 10:25> Subjective - Date & Time of Evaluation Date of Evaluation: 09/10/17 Time of Evaluation: 10:20 - Subjective Subjective: PGY-[address] Osborne Per RN, pt's pain was uncontrolled at night. Pt states that pain was from 2-9/ 10 scale. worsen when cough. No other acute complaint Objective - Vital Signs/Intake and Output Vital Signs (last 24 hours): Temp Pulse Resp BP Pulse Ox 97.5 F L 52 L 20 166/60 H 97 09/10/17 08:39 09/10/17 08:39 09/10/17 08:39 09/10/17 08:39 09/10/17 08:39 Intake and Output: 09/10/17 09/10/17 06:59 18:59 Intake Total 900 Output Total 650 Balance 250 - Medications Medications: Current Medications Acetaminophen (Tylenol 325mg Tab) 650 mg PO Q6H PRN PRN Reason: Fever >100.4 F Albuterol/Ipratropium (Duoneb 3 Mg/0.5 Mg (3 Ml) Ud) 3 ml IH Q3 PRN PRN Reason: Cough and congestion Last Admin: 09/03/17 16:37 Dose: 3 ml Atorvastatin Calcium (Lipitor) 40 mg PO QAM [facility] Last Admin: 09/09/17 09:30 Dose: 40 mg Bisacodyl (Dulcolax) 10 mg RC DAILY PRN PRN Reason: constipation Last Admin: 09/01/17 09:39 Dose: 10 mg Bupropion HCl (Wellbutrin) 100 mg PO DAILY [facility] Last Admin: 09/10/17 09:58 Dose: 100 mg Cholecalciferol (Vitamin D) 1,000 intlu PO DAILY [facility] Last Admin: 09/10/17 09:58 Dose: 1,000 intlu Famotidine (Pepcid) 40 mg PO HS [facility] Last Admin: 09/09/17 21:26 Dose: 40 mg Furosemide (Lasix) 20 mg IVP DAILY [facility] Last Admin: 09/01/17 09:40 Dose: 20 mg Guaifenesin (Robitussin) 100 mg PO Q4H PRN PRN Reason: Cough Last Admin: 08/30/17 21:22 Dose: 100 mg Hydromorphone HCl (Dilaudid) 1 mg IVP Q4H PRN PRN Reason: Pain, moderate (4-7) Last Admin: 09/10/17 09:57 Dose: 1 mg Daptomycin 480 mg/ Sodium (Chloride) 100 mls @ 200 mls/hr IV Q24H [facility] Stop: 09/17/17 10:01 Last Admin: 09/09/17 09:31 Dose: 200 mls/hr Levalbuterol HCl (Xopenex) 0.63 mg IH [id number] [facility] Last Admin: 09/10/17 07:55 Dose: 0.63 mg Levothyroxine Sodium (Synthroid) 175 mcg PO DAILY [facility] Last Admin: 09/09/17 09:30 Dose: 175 mcg Lidocaine (Lidoderm) 1 ea TD DAILY [facility] Last Admin: 09/10/17 09:58 Dose: 1 ea Lisinopril (Zestril) 5 mg PO DAILY [facility] Last Admin: 09/01/17 09:42 Dose: 5 mg Mirtazapine (Remeron) 15 mg PO HS [facility] Last Admin: 09/09/17 21:27 Dose: 15 mg Montelukast Sodium (Singulair) 10 mg PO HS [facility] Last Admin: 09/09/17 21:27 Dose: 10 mg Oxycodone/Acetaminophen (Percocet 5/325 Mg Tab) 1 tab PO Q8H BUD Stop: 09/10/17 12:01 Last Admin: 09/09/17 12:00 Dose: 1 tab Polyethylene Glycol (Miralax) 17 gm PO BID [facility] Last Admin: 09/10/17 09:58 Dose: 17 gm Prednisone (Prednisone Tab) 10 mg PO DAILY [facility] Last Admin: 09/10/17 09:58 Dose: 10 mg Rivaroxaban (Xarelto) 10 mg PO DAILY [facility] PRN Reason: Protocol Last Admin: 09/10/17 09:58 Dose: 10 mg Tiotropium [place] (Spiriva) 18 mcg IH DAILY [facility] Last Admin: 09/10/17 09:58 Dose: Not Given Venlafaxine HCl (Effexor Xr) 75 mg PO DAILY [facility] Last Admin: 09/10/17 09:58 Dose: 75 mg - Labs Labs: 09/10/17 06:30 09/10/17 06:30 - Constitutional Appears: No Acute Distress - Head Exam Head Exam: ATRAUMATIC, NORMAL INSPECTION, NORMOCEPHALIC - Eye Exam Eye Exam: EOMI, Normal appearance, PERRL. absent: Scleral icterus Pupil Exam: NORMAL ACCOMODATION - ENT Exam ENT Exam: Mucous Membranes Moist - Neck Exam Additional comments: supple - Respiratory Exam Respiratory Exam: Decreased Breath Sounds (lung bases), Clear to Ausculation Bilateral, NORMAL BREATHING PATTERN. absent: Rales, Rhonchi, Wheezes - Cardiovascular Exam Cardiovascular Exam: REGULAR RHYTHM, +S1, +S2 Additional comments: On binder - GI/Abdominal Exam GI & Abdominal Exam: Soft, Normal Bowel Sounds. absent: Tenderness - Extremities Exam Extremities Exam: Normal Inspection. absent: Calf Tenderness - Neurological Exam Neurological Exam: Alert, Awake, Oriented x3 - Psychiatric Exam Psychiatric exam: Normal Affect, Normal Mood - Skin Skin Exam: Dry, Warm Assessment and Plan - Assessment and Plan (Free Text) Plan: Mr Dueñas, 77M, with PMH MS, CAD s/p 2 stents, A-fib, COPD, hypothyroidism, hydrocele, presents with left-sided rib fractures s/p fall. He was found to be septic with HAP and MRSA bactermia. JOSIAH has resolved with fluid hydration. CT R lower extremities showed lipoma. A: Sepsis - bilateral healthcare-associated PNA, PMHx COPD - MRSA bactermia (08/31; Negative since 09/01) - Echo: no definite vegitations with LVEF of 48.7% s/p Fall, Multiple L ribs fracture with pain Hx CAD, A-fib, Dyslipidemia, HTN Hx multiple sclerosis Hypothyroidism Hearing impairment Watch rhabdo, high risk - Lipitor and Dapto regimen P: Daptomycin Day __10/14__; R arm mid-line; finished course of cefepime. D/C MRSA contact isolation Prednisone taper to 10 per pulm Xopenex Q6 bud, Duoneb PRN, Guaifenesin PRN Montelukast, Tiotropium for chronic COPD Weekly CK. Hold Lipitor to lower risk of rhabdo For rib fracture and fall, Continued percocet Q8 BUD, Lidoderm BUD, dilaudid PRN ; Incentive spirometer; HOB 30 Continue PT/OT. OOB with assist ASA, lisinopril 5 Xarelto Lasix on hold Lipitor on hold laxative prn Levothyroxine 175 Buproprion 100 daily, mirtazapine 15 HS, venlafaxine Heart Health diet; Vit D Prophylaxis - on xarelto and pepcid TCU eval Discharge planning: - Waiting for pt to finish IV Abx to be discharged from hospital to [facility], expected d/c day Sat 09/14 Consults: Gilson Mcguire, Kaitlin Faith, Donta s/r/d/w Dr. Osborne <Ap Osborne S - Last Filed: 09/10/17 18:51> Objective - Vital Signs/Intake and Output Vital Signs (last 24 hours): Temp Pulse Resp BP Pulse Ox 97.5 F L 52 L 20 130/58 L 97 09/10/17 08:39 09/10/17 08:39 09/10/17 08:39 09/10/17 16:09 09/10/17 08:39 Intake and Output: 09/10/17 09/10/17 06:59 18:59 Intake Total 900 Output Total 650 Balance 250 - Labs Labs: 09/10/17 06:30 09/10/17 06:30 Assessment and Plan - Assessment and Plan (Free Text) Plan: Pt seen and examined. I have reviewed the note of the medical instrument technician and agree with it. I have discussed the assessment and plan with the resident. I have reviewed the patient's labs and medications. [facility] He did not get accepted to a [facility] in [place]. He will need to continue with daptomycin until Saturday for a total of 2 weeks. He continues with L rib fx and pain is controlled. He is getting PT. Lipitor on hold. CK is normal.
[2017-09-10] MEDS: Levothyroxine 175 MCG TAB PO SCH (10:49)
[2017-09-10] MEDS: Oxycodone/Acetaminophen 5/325 mg Tab PO SCH (11:26)
[2017-09-10 16:10] VITALS: BP 130/58
--- NOTE | 2017-09-10 18:48 | PN ---
Copied To: Jak Gray MD Attending MD: Jak Gray MD DATE: 09/10/2017 SUBJECTIVE: The patient is in bed, in no acute distress, nontoxic. PHYSICAL EXAMINATION: VITAL SIGNS: Temperature is 97, blood pressure is 160/60, respiratory rate of 18. HEENT: Unremarkable. NECK: Supple. LUNGS: Decreased breath sounds. HEART: Normal S1, S2. ABDOMEN: Soft, nontender. LABORATORY EXAMINATION: Reveals a white count of 16,000, hemoglobin of 11. Chemistries are noted. Urinalysis is noted. Blood cultures are positive for MRSA, one bottle. The patient had a chest x-ray, no change in infiltrate. ASSESSMENT AND PLAN: A 77-year-old with sepsis due to methicillin-resistant Staphylococcus aureus bacteremia, probably skin is the source; bibasilar healthcare-associated pneumonia; multiple sclerosis; coronary artery disease; hypothyroidism; hypertension; chronic obstructive lung disease; dyslipidemia; and currently on daptomycin day #10, will need at least 14 days. The 2D echo is negative. The sed rate of 125 has come down to 76 and the C-reactive protein of 333 has come down to 29. We will repeat those values today. We will make further recommendations. Jak Gray MD
--- NOTE | 2017-09-11 12:15 | CP.PCM.DIS ---
<ShilaDalia - Last Filed: 09/11/17 12:09> Provider - Provider Date of Admission: 08/28/17 06:22 Attending physician: Ap Osborne MD Primary care physician: Jake Negron MD Consults: Gilson Mcguire, Donta Perez Time Spent in preparation of Discharge (in minutes): 30 Diagnosis - Discharge Diagnosis (1) CHF (congestive heart failure) Status: Acute (2) COPD (chronic obstructive pulmonary disease) Status: Acute (3) Fall Status: Acute (4) Ribs, multiple fractures Status: Acute Hospital Course - Lab Results Lab Results: Micro Results 09/01/17 21:00 Blood Blood Culture - Final NO GROWTH AFTER 5 DAYS 09/01/17 21:00 Blood Gram Stain - Final TEST NOT PERFORMED 09/01/17 20:30 Blood Blood Culture - Final NO GROWTH AFTER 5 DAYS 09/01/17 20:30 Blood Gram Stain - Final TEST NOT PERFORMED 08/31/17 11:55 Blood Blood Culture - Final NO GROWTH AFTER 5 DAYS 08/31/17 11:55 Blood Gram Stain - Final TEST NOT PERFORMED 08/31/17 11:45 Blood S.aureus & Coag-Neg Staph PNA FISH - Final 08/31/17 11:45 Blood Blood Culture - Final Methicillin Resistant S Aureus 08/31/17 11:45 Blood Gram Stain - Final 08/31/17 13:00 Urine Urine Culture - Final No Growth (<1,000 CFU/ML) Most Recent Lab Values WBC 16.0 10^3/ul (4.5-11.0) H 09/10/17 06:30 RBC 4.29 10^6/uL (3.5-6.1) 09/10/17 06:30 Hgb 11.9 g/dL (14.0-18.0) L 09/10/17 06:30 Hct 36.8 % (42.0-52.0) L 09/10/17 06:30 MCV 85.8 fl (80.0-105.0) 09/10/17 06:30 MCH 27.7 pg (25.0-35.0) 09/10/17 06:30 MCHC 32.3 g/dl (31.0-37.0) 09/10/17 06:30 RDW 15.8 % (11.5-14.5) H 09/10/17 06:30 Plt Count 386 10^3/uL (120.0-450.0) 09/10/17 06:30 MPV 9.0 fl (7.0-11.0) 09/10/17 06:30 Gran % 60.8 % (50.0-68.0) 09/10/17 06:30 Lymph % (Auto) 30.7 % (22.0-35.0) 09/10/17 06:30 [place] % (Auto) 6.2 % (1.0-6.0) H 09/10/17 06:30 Eos % (Auto) 1.7 % (1.5-5.0) 09/10/17 06:30 Baso % (Auto) 0.6 % (0.0-3.0) 09/10/17 06:30 Gran # 9.73 (1.4-6.5) H 09/10/17 06:30 Lymph # (Auto) 4.9 (1.2-3.4) H 09/10/17 06:30 [place] # (Auto) 1.0 (0.1-0.6) H 09/10/17 06:30 Eos # (Auto) 0.3 (0.0-0.7) 09/10/17 06:30 Baso # (Auto) 0.09 K/mm3 (0.0-2.0) 09/10/17 06:30 Neutrophils % (Manual) 53 % (50.0-70.0) 09/08/17 05:30 Lymphocytes % (Manual) 34 % (22.0-35.0) 09/08/17 05:30 Atypical Lymphs % 1 % (0.0-0.0) H 09/04/17 07:00 Monocytes % (Manual) 6 % (1.0-6.0) 09/08/17 05:30 Eosinophils % (Manual) 3 % (0.0-3.0) 09/08/17 05:30 Metamyelocytes % 2 % 09/08/17 05:30 Myelocytes % 2 % 09/08/17 05:30 Nucleated RBC % 1 % 09/08/17 05:30 ESR 76 mm/hr (0.00-15.0) H 09/07/17 10:20 Sodium 141 mmol/L (132-148) 09/10/17 06:30 Potassium 4.1 mmol/L (3.6-5.0) 09/10/17 06:30 Chloride 105 mmol/L (98-107) 09/10/17 06:30 Carbon Dioxide 28 mmol/L (21-33) 09/10/17 06:30 Anion Gap 13 (10-20) 09/10/17 06:30 BUN 21 mg/dL (7-21) 09/10/17 06:30 Creatinine 1.0 mg/dl (0.8-1.5) 09/10/17 06:30 Est GFR ( Amer) > 60 09/10/17 06:30 Est GFR (Non-Af Amer) > 60 09/10/17 06:30 Random Glucose 87 mg/dL (70-110) 09/10/17 06:30 Calcium 9.1 mg/dL (8.4-10.5) 09/10/17 06:30 Magnesium 1.8 mg/dL (1.7-2.2) 08/28/17 05:05 Total Bilirubin 0.6 mg/dL (0.2-1.3) 09/10/17 06:30 AST 45 U/L (17-59) 09/10/17 06:30 ALT 55 U/L (7-56) 09/10/17 06:30 Alkaline Phosphatase 131 U/L (38-126) H 09/10/17 06:30 Lactate Dehydrogenase 518 U/L (333-699) 08/28/17 05:05 Total Creatine Kinase 69 U/L (35-230) 09/07/17 10:20 Troponin I 0.05 ng/mL 08/28/17 05:05 C-Reactive Protein 29.70 mg/L (0.0-9.9) H 09/07/17 10:20 Total Protein 6.6 g/dL (5.8-8.3) 09/10/17 06:30 Total Protein (PEP) 6.7 g/dL (6.1-8.1) 08/29/17 06:00 Albumin 3.4 g/dL (3.0-4.8) 09/10/17 06:30 Albumin (PEP) 3.4 g/dL (3.8-4.8) L 08/29/17 06:00 Globulin 3.2 gm/dL 09/10/17 06:30 Albumin/Globulin Ratio 1.1 (1.1-1.8) 09/10/17 06:30 Nruac-0-Pejbyxoog 0.5 g/dL (0.2-0.3) H 08/29/17 06:00 Ojlny-9-Iqbsrxvgg 0.9 g/dL (0.5-0.9) 08/29/17 06:00 Hnwx-1-Qetccijq 0.4 g/dL (0.4-0.6) 08/29/17 06:00 Xxai-8-Ccfcggig 0.5 g/dL (0.2-0.5) 08/29/17 06:00 Gamma Globulins 1.0 g/dL (0.8-1.7) 08/29/17 06:00 Abnorm Protein Band 1 TEST NOT PERFORMED 08/29/17 06:00 Abnorm Protein Band 2 TEST NOT PERFORMED 08/29/17 06:00 Abnorm Protein Band 3 TEST NOT PERFORMED 08/29/17 06:00 Procalcitonin 3.46 NG/ML (0.19-0.49) H 09/01/17 21:00 PTH Intact Whole Molec 89 pg/mL (14-64) H 08/29/17 06:00 Urine Color Yellow (YELLOW) 08/31/17 10:12 Urine Appearance Slight-cloudy (CLEAR) 08/31/17 10:12 Urine pH 5.5 (4.7-8.0) 08/31/17 10:12 Ur Specific [place] >= 1.030 (1.005-1.035) 08/31/17 10:12 Urine Protein 30 mg/dL (<30 mg/dL) H 08/31/17 10:12 Urine Glucose (UA) Negative mg/dL (NEGATIVE) 08/31/17 10:12 Urine Ketones Negative mg/dL (NEGATIVE) 08/31/17 10:12 Urine Blood Trace-lysed (NEGATIVE) H 08/31/17 10:12 Urine Nitrate Negative (NEGATIVE) 08/31/17 10:12 Urine Bilirubin Negative (NEGATIVE) 08/31/17 10:12 Urine Urobilinogen 0.2 E.U./dL (<1 E.U./dL) 08/31/17 10:12 Ur Leukocyte Esterase Negative Román/uL (NEGATIVE) 08/31/17 10:12 Urine RBC 5 - 10 /hpf (0-2) 08/31/17 10:12 Urine WBC 2 - 5 /hpf (0-6) 08/31/17 10:12 Ur Epithelial Cells 1 - 3 /hpf (0-5) 08/31/17 10:12 Urine Bacteria Mod (NEG) 08/28/17 17:15 LAURO & SPEP Interp See note 08/29/17 06:00 WB Flow Cytometry Reference test 09/06/17 10:55 - Hospital Course Hospital Course: PGY-[address] Osborne Mr Dueñas, 77M, with PMH MS, CAD s/p 2 stents, A-fib, COPD, hypothyroidism, hydrocele, presents with left-sided rib fractures s/p fall. He was found to be septic with HAP and MRSA bactermia. JOSIAH has resolved with fluid hydration. CT R lower extremities showed lipoma. He had Sepsis, likely due to (1) bilateral healthcare-associated PNA, PMHx COPD , and (2) MRSA bactermia (08/31; Negative since 09/01). Echocardiogram showed no definite vegitations with LVEF of 48.7%. He Had 10 days of Daptomycin on R arm mid-line; finished course of cefepime. D/C MRSA contact isolation. Due to high risk of rhabdomyolysis, Lipitor was temporary hold while on Dapto regimen. He will need to continue with daptomycin until Saturday for a total of 2 weeks. CK is normal He sustained multiple L ribs fracture with pain. On chest binder, Continued percocet Q8 BUD, Lidoderm BUD, dilaudid PRN; Incentive spirometer; HOB 30 For COPD, we was on Prednisone taper to 10 per pulm. Continue Xopenex Q6 bud, Duoneb PRN, Guaifenesin PRN, Montelukast, Tiotropium for chronic COPD Weekly CK. He has persistent elevated WBC. Flow cytometry is negative for clonal T/B abnormality. Dr Wall was consulted. CXR has no active disease. He will be discharged to [facility] to continue with daptomycin until Saturday for a total of 2 weeks. CK is normal s/r/d/w Dr Dylon Discharge Exam - Head Exam Head Exam: ATRAUMATIC, NORMAL INSPECTION, NORMOCEPHALIC - Eye Exam Eye Exam: EOMI, Normal appearance, PERRL Pupil Exam: NORMAL ACCOMODATION - ENT Exam ENT Exam: Mucous Membranes Moist - Neck Exam Additional comments: supple - Respiratory Exam Respiratory Exam: Decreased Breath Sounds (b/l lung bases), NORMAL BREATHING PATTERN. absent: Rales, Rhonchi, Wheezes - Cardiovascular Exam Cardiovascular Exam: REGULAR RHYTHM, +S1, +S2 - GI/Abdominal Exam GI & Abdominal Exam: Normal Bowel Sounds, Soft. absent: Rigid, Tenderness - Extremities Exam Extremities exam: normal capillary refill, pedal pulses present - Neurological Exam Neurological exam: Alert, Oriented x3 - Psychiatric Exam Psychiatric exam: Normal Affect, Normal Mood - Skin Skin Exam: Dry, Warm Discharge Plan - Follow Up Plan Condition: FAIR Disposition: REHAB FACILITY/REHAB UNIT Instructions: Preventing Falls in the Older Adult, Rib Fracture (DC), Pneumonia , Adult (DC), Heart Failure (DC), Heart Failure (GEN), Pacemaker (DC), Pacemaker (GEN), Pulmonary Edema (DC), Pulmonary Edema (GEN), Ascites (DC), Ascites (GEN) Additional Instructions: Patient discharged to [facility] for continued antibiotic therapy (to complete 4days of IV antibiotic), continued physical therapy, and follow-up with PCP within 1 week of discharge. May return to nearest ED if experiencing worsening of symptoms. Referrals: Jake Negron MD [Primary Care Provider] - <Ap Osborne - Last Filed: 09/11/17 20:39> Provider - Provider Date of Admission: 08/28/17 06:22 Attending physician: Ap Osborne MD Primary care physician: Jake Negron MD Hospital Course - Lab Results Lab Results: Micro Results 09/01/17 21:00 Blood Blood Culture - Final NO GROWTH AFTER 5 DAYS 09/01/17 21:00 Blood Gram Stain - Final TEST NOT PERFORMED 09/01/17 20:30 Blood Blood Culture - Final NO GROWTH AFTER 5 DAYS 09/01/17 20:30 Blood Gram Stain - Final TEST NOT PERFORMED 08/31/17 11:55 Blood Blood Culture - Final NO GROWTH AFTER 5 DAYS 08/31/17 11:55 Blood Gram Stain - Final TEST NOT PERFORMED 08/31/17 11:45 Blood S.aureus & Coag-Neg Staph PNA FISH - Final 08/31/17 11:45 Blood Blood Culture - Final Methicillin Resistant S Aureus 08/31/17 11:45 Blood Gram Stain - Final 08/31/17 13:00 Urine Urine Culture - Final No Growth (<1,000 CFU/ML) Most Recent Lab Values WBC 16.0 10^3/ul (4.5-11.0) H 09/10/17 06:30 RBC 4.29 10^6/uL (3.5-6.1) 09/10/17 06:30 Hgb 11.9 g/dL (14.0-18.0) L 09/10/17 06:30 Hct 36.8 % (42.0-52.0) L 09/10/17 06:30 MCV 85.8 fl (80.0-105.0) 09/10/17 06:30 MCH 27.7 pg (25.0-35.0) 09/10/17 06:30 MCHC 32.3 g/dl (31.0-37.0) 09/10/17 06:30 RDW 15.8 % (11.5-14.5) H 09/10/17 06:30 Plt Count 386 10^3/uL (120.0-450.0) 09/10/17 06:30 MPV 9.0 fl (7.0-11.0) 09/10/17 06:30 Gran % 60.8 % (50.0-68.0) 09/10/17 06:30 Lymph % (Auto) 30.7 % (22.0-35.0) 09/10/17 06:30 [place] % (Auto) 6.2 % (1.0-6.0) H 09/10/17 06:30 Eos % (Auto) 1.7 % (1.5-5.0) 09/10/17 06:30 Baso % (Auto) 0.6 % (0.0-3.0) 09/10/17 06:30 Gran # 9.73 (1.4-6.5) H 09/10/17 06:30 Lymph # (Auto) 4.9 (1.2-3.4) H 09/10/17 06:30 [place] # (Auto) 1.0 (0.1-0.6) H 09/10/17 06:30 Eos # (Auto) 0.3 (0.0-0.7) 09/10/17 06:30 Baso # (Auto) 0.09 K/mm3 (0.0-2.0) 09/10/17 06:30 Neutrophils % (Manual) 53 % (50.0-70.0) 09/08/17 05:30 Lymphocytes % (Manual) 34 % (22.0-35.0) 09/08/17 05:30 Atypical Lymphs % 1 % (0.0-0.0) H 09/04/17 07:00 Monocytes % (Manual) 6 % (1.0-6.0) 09/08/17 05:30 Eosinophils % (Manual) 3 % (0.0-3.0) 09/08/17 05:30 Metamyelocytes % 2 % 09/08/17 05:30 Myelocytes % 2 % 09/08/17 05:30 Nucleated RBC % 1 % 09/08/17 05:30 ESR 76 mm/hr (0.00-15.0) H 09/07/17 10:20 Sodium 141 mmol/L (132-148) 09/10/17 06:30 Potassium 4.1 mmol/L (3.6-5.0) 09/10/17 06:30 Chloride 105 mmol/L (98-107) 09/10/17 06:30 Carbon Dioxide 28 mmol/L (21-33) 09/10/17 06:30 Anion Gap 13 (10-20) 09/10/17 06:30 BUN 21 mg/dL (7-21) 09/10/17 06:30 Creatinine 1.0 mg/dl (0.8-1.5) 09/10/17 06:30 Est GFR ( Amer) > 60 09/10/17 06:30 Est GFR (Non-Af Amer) > 60 09/10/17 06:30 Random Glucose 87 mg/dL (70-110) 09/10/17 06:30 Calcium 9.1 mg/dL (8.4-10.5) 09/10/17 06:30 Magnesium 1.8 mg/dL (1.7-2.2) 08/28/17 05:05 Total Bilirubin 0.6 mg/dL (0.2-1.3) 09/10/17 06:30 AST 45 U/L (17-59) 09/10/17 06:30 ALT 55 U/L (7-56) 09/10/17 06:30 Alkaline Phosphatase 131 U/L (38-126) H 09/10/17 06:30 Lactate Dehydrogenase 518 U/L (333-699) 08/28/17 05:05 Total Creatine Kinase 69 U/L (35-230) 09/07/17 10:20 Troponin I 0.05 ng/mL 08/28/17 05:05 C-Reactive Protein 29.70 mg/L (0.0-9.9) H 09/07/17 10:20 Total Protein 6.6 g/dL (5.8-8.3) 09/10/17 06:30 Total Protein (PEP) 6.7 g/dL (6.1-8.1) 08/29/17 06:00 Albumin 3.4 g/dL (3.0-4.8) 09/10/17 06:30 Albumin (PEP) 3.4 g/dL (3.8-4.8) L 08/29/17 06:00 Globulin 3.2 gm/dL 09/10/17 06:30 Albumin/Globulin Ratio 1.1 (1.1-1.8) 09/10/17 06:30 Oxofw-0-Xjdpsdjud 0.5 g/dL (0.2-0.3) H 08/29/17 06:00 Lqtyq-1-Frfiiryok 0.9 g/dL (0.5-0.9) 08/29/17 06:00 Pprk-0-Snayioty 0.4 g/dL (0.4-0.6) 08/29/17 06:00 Jubb-3-Npoxepes 0.5 g/dL (0.2-0.5) 08/29/17 06:00 Gamma Globulins 1.0 g/dL (0.8-1.7) 08/29/17 06:00 Abnorm Protein Band 1 TEST NOT PERFORMED 08/29/17 06:00 Abnorm Protein Band 2 TEST NOT PERFORMED 08/29/17 06:00 Abnorm Protein Band 3 TEST NOT PERFORMED 08/29/17 06:00 Procalcitonin 3.46 NG/ML (0.19-0.49) H 09/01/17 21:00 PTH Intact Whole Molec 89 pg/mL (14-64) H 08/29/17 06:00 Urine Color Yellow (YELLOW) 08/31/17 10:12 Urine Appearance Slight-cloudy (CLEAR) 08/31/17 10:12 Urine pH 5.5 (4.7-8.0) 08/31/17 10:12 Ur Specific [place] >= 1.030 (1.005-1.035) 08/31/17 10:12 Urine Protein 30 mg/dL (<30 mg/dL) H 08/31/17 10:12 Urine Glucose (UA) Negative mg/dL (NEGATIVE) 08/31/17 10:12 Urine Ketones Negative mg/dL (NEGATIVE) 08/31/17 10:12 Urine Blood Trace-lysed (NEGATIVE) H 08/31/17 10:12 Urine Nitrate Negative (NEGATIVE) 08/31/17 10:12 Urine Bilirubin Negative (NEGATIVE) 08/31/17 10:12 Urine Urobilinogen 0.2 E.U./dL (<1 E.U./dL) 08/31/17 10:12 Ur Leukocyte Esterase Negative Román/uL (NEGATIVE) 08/31/17 10:12 Urine RBC 5 - 10 /hpf (0-2) 08/31/17 10:12 Urine WBC 2 - 5 /hpf (0-6) 08/31/17 10:12 Ur Epithelial Cells 1 - 3 /hpf (0-5) 08/31/17 10:12 Urine Bacteria Mod (NEG) 08/28/17 17:15 LAURO & SPEP Interp See note 08/29/17 06:00 WB Flow Cytometry Reference test 09/06/17 10:55 - Hospital Course Hospital Course: Pt seen and examined. I have reviewed the note of the chief medical technologist and agree with it. I have discussed the assessment and plan with the resident. I have reviewed the patient's labs and medications. Pt d/c to [facility]. See note yesterday and today for details.
== END 2017-09-10 16:36 | DRG 871 ==
LOC: ED 03:39 → ERH 06:22 → 2RNO 10:06 → 3RSO 08-29 15:14
PROVIDERS: ADMIT Internal Medicine Nephrology; ATTEND Internal Medicine Nephrology
PROC: 05H533Z Insertion of Infusion Device into Right Subclavian Vein, Percutaneous Approach (ICD-10-PCS; principal; 2017-09-06)
PROC: B54MZZA Ultrasonography of Right Upper Extremity Veins, Guidance (ICD-10-PCS; 2017-09-06)
DX: A41.02 Sepsis due to Methicillin resistant Staphylococcus aureus (principal); J18.9 Pneumonia, unspecified organism; S22.42XA Multiple fractures of ribs, left side, initial encounter for closed fracture; I13.0 Hypertensive heart and chronic kidney disease with heart failure and stage 1 through stage 4 chronic kidney disease, or unspecified chronic kidney disease; J44.1 Chronic obstructive pulmonary disease with (acute) exacerbation; J44.0 Chronic obstructive pulmonary disease with (acute) lower respiratory infection; J98.11 Atelectasis; N17.9 Acute kidney failure, unspecified; I50.9 Heart failure, unspecified; N18.3 Chronic kidney disease, stage 3 (moderate); I48.0 Paroxysmal atrial fibrillation; G35 Multiple sclerosis; I25.10 Atherosclerotic heart disease of native coronary artery without angina pectoris; K21.9 Gastro-esophageal reflux disease without esophagitis; H91.93 Unspecified hearing loss, bilateral; E03.9 Hypothyroidism, unspecified; E78.00 Pure hypercholesterolemia, unspecified; S40.812A Abrasion of left upper arm, initial encounter; N40.1 Benign prostatic hyperplasia with lower urinary tract symptoms; R39.15 Urgency of urination; N52.9 Male erectile dysfunction, unspecified; K59.09 Other constipation; E78.5 Hyperlipidemia, unspecified; F17.200 Nicotine dependence, unspecified, uncomplicated; Y95 Nosocomial condition; D17.23 Benign lipomatous neoplasm of skin and subcutaneous tissue of right leg; W01.0XXA Fall on same level from slipping, tripping and stumbling without subsequent striking against object, initial encounter; Y92.26 Movie house or cinema as the place of occurrence of the external cause; I25.2 Old myocardial infarction; Z79.01 Long term (current) use of anticoagulants; Z95.5 Presence of coronary angioplasty implant and graft; Z82.49 Family history of ischemic heart disease and other diseases of the circulatory system

== ENCOUNTER 2017-11-06 08:21 | Day surgery (SDC) | payer MEDICARE ==
[2017-11-01 10:39] VITALS: BMI 26.6
[2017-11-06] MEDS ORDERED: Midazolam 2 MG/2 ML VIAL ONE (10:07)
[2017-11-06] MEDS ORDERED: Propofol 10 mg/ml Inj (20 ML) ONE (10:43)
[2017-11-06] MEDS ORDERED: Gadodiamide 287 MG/ML VIAL (15ML) IV ONE (10:43)
[2017-11-06] MEDS ORDERED: Lactated Ringer's 1,000 ML IV SCH (11:30)
[2017-11-06 11:41] VITALS: RESP 18; TEMP 98
[2017-11-06 12:25] VITALS: BP 166/88; PULSE 85; O2SAT 90
--- NOTE | 2017-11-06 16:37 | MRI ---
Date of service: 11/06/2017 PROCEDURE: MRI BRAIN WITH AND WITHOUT CONTRAST HISTORY: follow up COMPARISON: None available. TECHNIQUE: Multiplanar, multisequence MR images of the brain were obtained with and without intravenous contrast enhancement. 15 cc of Omniscan was utilized for intravenous contrast. FINDINGS: HEMORRHAGE: None DWI: No evidence of an acute or early subacute infarction. BRAIN PARENCHYMA: Good corticomedullary differentiation is seen. Reiterated, extensive diffuse cerebral atrophy and chronic microangiopathy. No suspicious extra-axial fluid collection is identified and the midline brain anatomy appears grossly nonfocal as imaged. No mass effect identified. No suspicious interval brain parenchymal findings. ENHANCEMENT: No abnormal intracranial enhancement. VENTRICLES: Unremarkable. No hydrocephalus. CRANIUM: Unremarkable. ORBITS: Grossly unremarkable. PARANASAL SINUSES/MASTOIDS: Clear VASCULAR SYSTEM: Skull base flow voids intact. OTHER FINDINGS: None . IMPRESSION: Stable apparent age related neuro degenerative changes compared to 03/25/2017 brain MRI. Nevertheless, clinically correlate for potential other white-matter disorders including demyelination though I have no specific history of such clinically. No abnormal intracranial enhancement identified.
== END 2017-11-06 14:30 | disposition home or self-care (01) ==
LOC: SDS 08:21 → RAD 08:21 → SDS 14:30
PROVIDERS: ATTEND Psychiatry & Neurology Neurology
DX: G35 Multiple sclerosis (principal)
CPT/HCPCS: 70553; A9579; J2250; J2704; J7120

== ENCOUNTER 2018-01-02 13:50 | Inpatient (IN) | payer MEDICARE ==
--- NOTE | 2018-01-02 14:11 | ED PDOC ---
Arrival/HPI - General Chief Complaint: Shortness Of Breath Time Seen by Provider: 01/02/18 13:52 Historian: Patient, Other (Friend) - Critical Care Critical Care Minutes: 30 minutes - History of Present Illness Narrative History of Present Illness (Text): 01/02/18 14:08 77 yo male h/o COPD, CHF, Multiple Sclerosis, HTN, HLD, Hypothyriodism presents to the ED c/o of SOB worsening x 2 weeks. Associated with cough with phelgm. Sometimes he has coughing spells so hard that he feels lightheaded. Generalized weakness. Intermittent fevers. Last temp 101F last week. No fever since. No recent antibiotics. He's on Xarelto for CAD with stents. No chest pain. No abdominal pain. PMD: Dr. Negron / [place] Past Medical History - Provider Review Nursing Documentation Reviewed: Yes - Infectious Disease Hx of Infectious Diseases: None - Tetanus Immunization Tetanus Immunization: Unknown - Cardiac Hx Cardiac Disorders: Yes - Pulmonary Hx Respiratory Disorders: Yes Hx Chronic Obstructive Pulmonary Disease (COPD): Yes Hx Pneumonia: Yes - Neurological Hx Neurological Disorder: Yes Other/Comment: NEUROPATHY - HEENT Hx HEENT Disorder: Yes Other/Comment: [place] - Renal Hx Renal Disorder: Yes - Endocrine/Metabolic Hx Endocrine Disorders: Yes Hx Hypothyroidism: Yes - Hematological/Oncological Hx Blood Disorders: Yes Hx Blood Transfusions: Yes Hx Blood Transfusion Reaction: No Other/Comment: MS - Integumentary Hx Dermatological Disorder: Yes Other/Comment: dermatitis - Musculoskeletal/Rheumatological Hx Musculoskeletal Disorders: Yes Other/Comment: R SHOULDER ARTHROPLASTY - Gastrointestinal Hx Gastrointestinal Disorders: Yes Hx Gastroesophageal Reflux: Yes - Genitourinary/Gynecological Hx Genitourinary Disorders: Yes Hx Prostate Problems: Yes (BPH) - Psychiatric Hx Substance Use: No - Surgical History Hx Appendectomy: Yes Hx Coronary Stent: Yes Hx Orthopedic Surgery: Yes - Anesthesia Hx Anesthesia Reactions: Yes ("BLEEDING FROM AIRWAY USED") Hx Malignant Hyperthermia: No - Suicidal Assessment Feels Threatened In Home Enviroment: No Family/Social History - Physician Review Nursing Documentation Reviewed: Yes Family/Social History: No Known Family HX Smoking Status: Former Smoker Hx Alcohol Use: Yes (RARELY) Hx Substance Use: No Hx Substance Use Treatment: No Allergies/Home Meds Allergies/Adverse Reactions: Allergies tape Adverse Reaction (Uncoded 01/02/18 13:54) REDNESS Home Medications: Home Meds Medication Instructions Recorded Confirmed Ascorbic Acid [Vitamin C] 1,000 mg PO QAM 09/13/11 01/02/18 Atorvastatin [Lipitor] 40 mg PO QAM 09/13/11 01/02/18 Mirtazapine [Remeron] 15 mg PO HS 01/20/15 01/02/18 Montelukast [Singulair] 10 mg PO HS 05/12/15 01/02/18 [place]-3 Fatty Acids/Fish Oil 300 mg PO DAILY 05/12/15 01/02/18 [[place] 3 Fish Oil Softgel] Temazepam [Restoril] 30 mg PO HS 05/12/15 01/02/18 Vitamin B Complex [Super B-50 1 tab PO DAILY 05/12/15 01/02/18 Complex] Lisinopril [Zestril] 2.5 mg PO DAILY 07/30/15 01/02/18 Tiotropium [Spiriva] 18 mcg NEB DAILY 07/30/15 01/02/18 Venlafaxine HCl [Venlafaxine HCl 75 mg PO DAILY 07/30/15 01/02/18 ER] buPROPion [Wellbutrin] 100 mg PO DAILY 07/30/15 01/02/18 Multivit-Min/FA/Lycopen/Lutein 1 tab PO DAILY 09/05/15 01/02/18 [Centrum Silver Tablet] Cholecalciferol [Vitamin D 1000 IU] 1 tab PO DAILY 03/17/16 01/02/18 Rivaroxaban [Xarelto] 20 mg PO DAILY 06/01/17 01/02/18 Polyethylene Glycol 3350 [Miralax] 34 mg PO HS 08/28/17 01/02/18 Fluticasone Furoate [Arnuity 100 mcg IH DAILY 11/01/17 01/02/18 Ellipta] Digoxin [Lanoxin] 0.125 mg PO DAILY 11/06/17 01/02/18 Armodafinil [Nuvigil 250 mg Tab] 250 mg PO BID 01/02/18 01/02/18 Bisacodyl [Fast Relief Laxative] 10 mg NH PRN PRN 01/02/18 01/02/18 Esomeprazole Magnesium [Nexium] 40 mg PO DAILY 01/02/18 01/02/18 Mefloquine [Lariam] 250 mg PO QWK 01/02/18 01/02/18 Oxycodone HCl/Acetaminophen 1 tab PO PRN PRN 01/02/18 01/02/18 [Endocet 7.5-325 mg Tablet] Review of Systems - Review of Systems Constitutional: Normal Eyes: Normal ENT: Normal Respiratory: SOB, Cough, Sputum, Wheezing Cardiovascular: Normal. absent: Chest Pain Gastrointestinal: Normal. absent: Abdominal Pain Genitourinary Male: Normal Musculoskeletal: Normal Skin: Normal Neurological: Normal Endocrine: Normal Hemo/Lymphatic: Normal Psychiatric: Normal Physical Exam Vital Signs Reviewed: Yes Temperature: Afebrile Blood Pressure: Normal Pulse: Regular Respiratory Rate: Tachypneic Appearance: Positive for: Well-Appearing, Non-Toxic, Uncomfortable Pain Distress: None Mental Status: Positive for: Alert and Oriented X 3 - Systems Exam Head: Present: Atraumatic, Normocephalic Pupils: Present: PERRL Extroacular Muscles: Present: EOMI Conjunctiva: Present: Normal Mouth: Present: Moist Mucous Membranes. No: Dry Pharnyx: Present: Normal. No: ERYTHEMA, EXUDATE Neck: Present: Normal Range of Motion Respiratory/Chest: Present: Good Air Exchange, Wheezes, Retracting, Tachypneic. No: Respiratory Distress, Accessory Muscle Use, Rales, Rhonchi Cardiovascular: Present: Regular Rate and Rhythm, Normal S1, S2. No: Murmurs Abdomen: No: Tenderness, Distention, Peritoneal Signs Back: Present: Normal Inspection Upper Extremity: Present: Normal Inspection. No: Cyanosis, Edema Lower Extremity: Present: Normal Inspection, NORMAL PULSES. No: Edema, CALF TENDERNESS Neurological: Present: GCS=15, CN II-XII Intact, Speech Normal Skin: Present: Warm, Dry, Normal Color. No: Rashes Psychiatric: Present: Alert, Oriented x 3, Normal Insight, Normal Concentration Medical Decision Making ED Course and Treatment: 01/02/18 14:12 77 yo male with Shortness of Breathe due to COPD vs CHF r/o ACS -- Labs -- CXR, EKG -- Oxygen stat -- Duonebs stat, Solumedrol IVP -- Reevaluate and disposition EKG: NSR at 100bpm with 1st AV block, RBBB, LAD, PVC's 01/02/18 15:34 Accession No. : [id number] Patient Name / ID : DAVID CARVER / [id number] Chest X-ray IMPRESSION: Severe vascular congestion with interstitial edema Patient is feeling better after medications. CXR reviewed and read as above. Labs reviewed. Potassium low and treated with PO replacement. Oxygen level improved to 91% on RA. Patients lungs are clear. No w/r/r. Code sepsis was called at time documented due to elevated RR, low Oxy level, elev WBC, and elev LA in setting of a cough, intermittent fever. 01/02/18 15:58 Case was discussed with Dr. Wall who is covering for Dr. Osborne. Will admit patient to Telemetry. Consult was placed for Dr. Hoffmann Cardiology. Aspirin ordered. Troponin currently at baseline. Needs full admission due to need for cardiac work up and stabilization of CHF/COPD. - Critical Care Critical Care Minutes: 30 minutes - RAD Interpretation Radiology Orders: 01/02/18 14:03 CHEST PORTABLE [RAD] Stat - Medication Orders Current Medication Orders: Albuterol/Ipratropium (Duoneb 3 Mg/0.5 Mg (3 Ml) Ud) 3 ml IH Q15M DUNIA Stop: 01/02/18 14:46 Discontinued Medications Methylprednisolone (Solu-Medrol) 125 mg IVP STAT STA Stop: 01/02/18 14:03 Disposition/Present on Arrival - Present on Arrival Any Indicators Present on Arrival: No History of DVT/PE: No History of Uncontrolled Diabetes: No Urinary Catheter: No History of Decub. Ulcer: No History Surgical Site Infection Following: None - Disposition Have Diagnosis and Disposition been Completed?: Yes Diagnosis: CHF (congestive heart failure), COPD (chronic obstructive pulmonary disease) Disposition: HOSPITALIZED Disposition Time: 15:59 Patient Plan: Admission Condition: GUARDED Discharge Instructions (ExitCare): Heart Failure (ED) Forms: [employer] ([place])
[2018-01-02] MEDS: Albuterol-Ipratrop 3 mg / 0.5 (3 ml) UD IH SCH ×3 (14:15→14:44)
[2018-01-02] MEDS ORDERED: Oxycodone/Acetaminophen 10/325 mg Tab PO STA (14:26)
--- NOTE | 2018-01-02 14:43 | RAD ---
Date of service: 01/02/2018 HISTORY: cough r/o pna COMPARISON: 10/16/2017 FINDINGS: LUNGS: Severe vascular congestion with interstitial edema PLEURA: No significant pleural effusion identified, no pneumothorax apparent. CARDIOVASCULAR: No aortic atherosclerotic calcification present. Moderate cardiomegaly OSSEOUS STRUCTURES: No significant abnormalities. VISUALIZED UPPER ABDOMEN: Normal. OTHER FINDINGS: None. IMPRESSION: Severe vascular congestion with interstitial edema
[2018-01-02 14:49] LABS: BASO # 0.06 K/mm3 (0.0-2.0); BASO % 0.5 % (0.0-3.0); EOS # 0.5 (0.0-0.7); GRAN # 7.97 (1.4-6.5); GRAN % 63.9 % (50.0-68.0); HEMOGLOBIN 9.9 g/dL (14.0-18.0); LYMPH # 2.8 (1.2-3.4); LYMPH % 22.6 % (22.0-35.0); MEAN CELL VOLUME 86.2 fl (80.0-105.0); MEAN CORPUSCULAR HEMOGLOBIN 26.8 pg (25.0-35.0); MONO # 1.1 (0.1-0.6); RBC 3.7 10^6/uL (3.5-6.1); RED CELL DISTRIBUTION WIDTH 14.3 % (11.5-14.5); WHITE BLOOD COUNT 12.5 10^3/uL (4.5-11.0)
[2018-01-02 14:50] LABS: VENOUS BLOOD GAS BASE EXCESS 0.3 mmol/L (0.0-2.0); VENOUS BLOOD GAS PO2 37 mm/Hg (30-55); VENOUS BLOOD PH 7.35 (7.32-7.43)
[2018-01-02] MEDS ORDERED: cefTRIAXone 1 gm 1 GM/100 ML BAG IVPB STA (14:56)
[2018-01-02 14:59] LABS: INR 1.38; PARTIAL THROMBOPLASTIN TIME 34.7 Seconds (25.1-36.5); PROTHROMBIN TIME 15.8 SECONDS (9.4-12.5)
[2018-01-02 15:04] LABS: ALBUMIN 3.4 g/dL (3.0-4.8); ALT/SGPT 40 U/L (7-56); AST/SGOT 35 U/L (17-59); BLOOD UREA NITROGEN 14 mg/dL (7-21); CALCIUM 8.8 mg/dL (8.4-10.5); GFR NON-AFRICAN AMERICAN > 60
[2018-01-02] MEDS ORDERED: Potassium Chloride 20 mEq ER Tab PO STA (15:09)
[2018-01-02 15:43] LABS: B-TYPE NATRIURETIC PEPTIDE 4920 pg/mL (0-450); TROPONIN I 0.14 ng/mL
[2018-01-02 16:21] LABS: ARTERIAL BLOOD GAS HCO3 24.2 mmol/L (21-28); ARTERIAL BLOOD GAS HEMOGLOBIN 10.3 g/dL (11.7-17.4); ARTERIAL BLOOD GAS O2 CONTENT 12.6 ML/dl (15-23); ARTERIAL BLOOD GAS O2 SAT 89.8 % (95-98); ARTERIAL BLOOD GAS PCO2 39 mm/Hg (35-45); ARTERIAL BLOOD GAS TCO2 25.4 mmol.L (22-28)
[2018-01-02 17:33] LABS: URINE BILIRUBIN NEGATIVE (NEGATIVE); URINE BLOOD NEGATIVE (NEGATIVE); URINE GLUCOSE (UA) NEGATIVE (NEGATIVE); URINE LEUKOCYTE ESTERASE NEGATIVE Leu/uL (NEGATIVE); URINE PROTEIN NEGATIVE mg/dL (<30 mg/dL); URINE UROBILINOGEN 0.2 E.U./dL (<1 E.U./dL)
[2018-01-02 17:34] LABS: URINE APPEARANCE CLEAR (CLEAR); URINE COLOR YELLOW (YELLOW)
[2018-01-02 17:43] VITALS: BMI 27.4
[2018-01-02 18:04] LABS: VENOUS BLOOD GAS BASE EXCESS -0.3 mmol/L (0.0-2.0); VENOUS BLOOD GAS PO2 37 mm/Hg (30-55); VENOUS BLOOD PH 7.41 (7.32-7.43)
[2018-01-02] MEDS ORDERED: Enoxaparin 80 mg Syringe SC ONE (18:10)
[2018-01-02] MEDS ORDERED: guaiFENesin 200 mg/10 ml Syrup UD PO PRN (22:09)
[2018-01-02] MEDS ORDERED: Oxycodone/Acetaminophen 5/325 mg Tab PO ONE (22:09)
[2018-01-02] MEDS ORDERED: Sodium Chloride 0.9% 1,000 ML IV SCH (22:15)
[2018-01-03] MEDS: Levothyroxine 175 MCG TAB PO SCH (05:53)
[2018-01-03] MEDS: Pantoprazole 40 mg EC Tab PO SCH (08:54)
--- NOTE | 2018-01-03 09:29 | CARD ---
APPROVED REPORT Date of service: 01/02/2018 EKG Measurement Heart [id number] ID [id number] <Conclusion> RSR with 1st degree AVB RBBB LAD PVCs STTW changes IMI, old
[2018-01-03 11:51] LABS: TROPONIN I 0.1 ng/mL
[2018-01-03] MEDS: cefTRIAXone 1 gm 1 GM/100 ML BAG IVPB SCH (12:06)
[2018-01-03] MEDS: Venlafaxine 75 mg ER Cap PO SCH (12:08)
[2018-01-03] MEDS: Potassium Chloride 20 mEq ER Tab PO SCH (12:10)
[2018-01-03] MEDS: Tiotropium 18 mcg Cap For Inhalation INH SCH (12:21)
[2018-01-03] MEDS: guaiFENesin 100 mg/5 ml Syrup UD PO PRN (12:28)
[2018-01-03] MEDS: Oxycodone/Acetaminophen 5/325 mg Tab PO PRN (13:52)
[2018-01-03] MEDS: Digoxin 125 mcg (0.125 mg) Tab PO SCH (13:53)
[2018-01-03] MEDS: ARNUITY ELLIPTA 100 MCG IH SCH (14:56)
--- NOTE | 2018-01-03 18:36 | CON ---
DATE OF CONSULTATION: 01/03/2018 TYPE OF CONSULTATION: Cardiology REASON FOR CONSULTATION: Followup shortness of breath, history of coronary artery disease, history of stent in the past, history of paroxysmal atrial fibrillation. BRIEF CLINICAL HISTORY: This is a 77-year-old male with a history of COPD, history of CHF, history of multiple sclerosis, hypertension, hyperlipidemia, hypothyroidism, history of coronary artery disease, status post stent [address] Lopez, recently saw me in office 2 weeks ago, is scheduled for a stress test today. He came in with complaint of cough and worsening shortness of breath, possible pneumonia and exacerbation of COPD. Temperature admitting was 101. Admitting chest x-ray shows interstitial disease, but cannot rule out underlying right lower lobe pneumonia possibly. The patient denies any chest pain, denies any palpitation to baseline, having some shortness of breath that is getting worse in a week. The patient also scheduled a stress test today as outpatient, but the patient refuses to go today and canceled day before yesterday and called to cancel it and today is not willing to go because he still feels shortness of breath. PAST MEDICAL HISTORY: Significant for coronary artery disease, status post stent [address] Lopez. I do not want to back because of the logistic issue. History of hypertension, history of hyperlipidemia, history of multiple sclerosis, history of COPD, history of AFib, on Xarelto. SOCIAL HISTORY: Quit smoking many years ago. CURRENT MEDICATIONS: The patient at home was taking guaifenesin, ibuprofen, Spiriva, Restoril, Xarelto 20 mg daily, oxycodone, Singulair, lisinopril, and levothyroxine. ALLERGIES: TAPE. PREVIOUS CARDIAC WORKUP: The patient had echocardiography on 10/18/[address] Kumari and read by Dr. Kumari as ejection fraction 50%, no vegetation seen, mild concentric LVH, RV systolic pressure 27, trace tricuspid regurgitation, trace to mild mitral regurgitation. REVIEW OF SYSTEMS: As per HPI. PHYSICAL EXAMINATION: VITAL SIGNS: Height of the patient is 5 feet 6 inches. Weight of the patient is 170 pounds. Body mass index 27.4 kg/m2. Temperature afebrile, heart rate 77, blood pressure 117/72. HEENT: PERRLA. Extraocular muscles intact. NECK: Supple. No carotid bruits or thyromegaly. CHEST: Clear to auscultation. HEART: S1 and S2, regular. ABDOMEN: Soft. EXTREMITIES: Clubbing and cyanosis negative. LABORATORY DATA: Blood workup as follows. WBC 12.5, hemoglobin 9.9, hematocrit 31.9, platelets 409. Chemistry shows sodium 139, potassium 3.5, chloride 106, carbon dioxide 26, anion gap of 10, BUN 14, creatinine 0.9. Troponin 0.14. BNP 4920. TSH 1.03. IMPRESSION AND PLAN: A 77-year-old male with past medical history significant for coronary artery disease, status post stent [address] Lopez, [facility] and now does not want to go to [facility]. Two weeks ago, the patient saw me and is scheduled for a stress test today. Admitted yesterday with more shortness of breath. Initial chest x-ray showed congestive heart failure, but cannot rule out underlying pneumonia with elevated WBC, most likely right lower lobe pneumonia. Borderline troponin positive indeterminate range, but no complaint of chest pain. Given these findings and the recent echo in 10/2017, which showed preserved left ventricular ejection fraction 55%, trace tricuspid regurgitation, mild mitral regurgitation, we will treat as unstable angina as well as follow up serial CPK and troponin. If serial troponin remains flat, we will schedule a stress test on Saturday, but if the troponin is positive, we will consider cardiac catheterization on Saturday. The patient was seen in the past [facility], had angioplasty by Dr. Lopez 5 years ago, but the patient does not want to go back and does not want to follow with the [facility] and was seen by me 2 weeks after being referred by Dr. Negron as outpatient and was scheduled for a stress test today as outpatient, so we will continue the care in the hospital. Thank you Dr. Cuadra for providing us the opportunity in taking care of the patient. Valeria Hoffmann MD cc: MD Mar Sebastian MD
[2018-01-03] MEDS: POLYETHYLENE GLYCOL 3350 17 GM/Dose PACKET PO SCH (22:12)
[2018-01-04] MEDS: TEMAZEPAM 30 MG PO SCH ×2 (05:09→21:58)
[2018-01-04] MEDS: Levothyroxine 175 MCG TAB PO SCH (05:12)
[2018-01-04 07:41] LABS: BASO # 0.08 K/mm3 (0.0-2.0); BASO % 0.5 % (0.0-3.0); EOS # 0.2 (0.0-0.7); GRAN # 10.22 (1.4-6.5); GRAN % 65.5 % (50.0-68.0); HEMOGLOBIN 10.3 g/dL (14.0-18.0); LYMPH % 25.4 % (22.0-35.0); MEAN CELL VOLUME 87.4 fl (80.0-105.0); MEAN CORPUSCULAR HEMOGLOBIN 26.5 pg (25.0-35.0); MEAN CORPUSCULAR HGB CONC 30.4 g/dl (31.0-37.0); MEAN PLATELET VOLUME 9.2 fl (7.0-11.0); MONO # 1.2 (0.1-0.6); MONO % 7.6 % (1.0-6.0); RBC 3.88 10^6/uL (3.5-6.1); RED CELL DISTRIBUTION WIDTH 14.8 % (11.5-14.5); WHITE BLOOD COUNT 15.6 10^3/uL (4.5-11.0)
[2018-01-04 07:44] LABS: ALBUMIN 3.4 g/dL (3.0-4.8); CALCIUM 8.8 mg/dL (8.4-10.5)
[2018-01-04] MEDS: Pantoprazole 40 mg EC Tab PO SCH (08:17)
[2018-01-04] MEDS: Tiotropium 18 mcg Cap For Inhalation INH SCH (10:15)
[2018-01-04] MEDS: Venlafaxine 75 mg ER Cap PO SCH (10:15)
[2018-01-04] MEDS: cefTRIAXone 1 gm 1 GM/100 ML BAG IVPB SCH (10:17)
[2018-01-04] MEDS: Potassium Chloride 20 mEq ER Tab PO SCH (10:18)
[2018-01-04] MEDS: ARNUITY ELLIPTA 100 MCG IH SCH (10:18)
[2018-01-04] MEDS: Albuterol-Ipratrop 3 mg / 0.5 (3 ml) UD IH PRN ×2 (12:14→17:00)
[2018-01-04] MEDS: Digoxin 125 mcg (0.125 mg) Tab PO SCH (13:37)
[2018-01-04 13:48] LABS: BASO # 0.05 K/mm3 (0.0-2.0); BASO % 0.4 % (0.0-3.0); EOS # 0.1 (0.0-0.7); GRAN # 9.19 (1.4-6.5); GRAN % 69.6 % (50.0-68.0); HEMOGLOBIN 10.4 g/dL (14.0-18.0); MEAN CELL VOLUME 86.8 fl (80.0-105.0); MEAN CORPUSCULAR HEMOGLOBIN 26.3 pg (25.0-35.0); MEAN CORPUSCULAR HGB CONC 30.3 g/dl (31.0-37.0); MEAN PLATELET VOLUME 8.9 fl (7.0-11.0); MONO # 0.8 (0.1-0.6); RBC 3.95 10^6/uL (3.5-6.1); RED CELL DISTRIBUTION WIDTH 14.8 % (11.5-14.5); WHITE BLOOD COUNT 13.2 10^3/uL (4.5-11.0)
[2018-01-04 14:39] LABS: CALCIUM 8.7 mg/dL (8.4-10.5)
[2018-01-04] MEDS ORDERED: Sod Polystyrene Sulf 15 gm/60 ml Susp PO ONE (15:37)
[2018-01-04] MEDS: Ipratropium 0.02% Inhal Soln (0.5 mg/2.5 ml) UD IH SCH (20:06)
[2018-01-04] MEDS: Levalbuterol 0.63 MG/3 ML Inhal Soln UD IH SCH (20:07)
--- NOTE | 2018-01-04 20:26 | PN ---
DATE: 01/03/2018 FOLLOWUP NOTE SUBJECTIVE: He is comfortable in bed, in no acute distress. Shortness of breath has improved. He is ambulating inside the room. Second troponin is negative. Evaluated by Dr. Hoffmann, Cardiology. Denies any chest pain. He is complaining of back pain why he is ambulating. Pain controlled with Percocet p.r.n. REVIEW OF SYSTEMS: As per HPI. Rest of 12-point review of systems reviewed negative. PHYSICAL EXAMINATION: GENERAL: Comfortable in bed, in no acute distress. VITAL SIGNS: Stable. Temperature 98.7, heart rate 56 per minute, blood pressure 126/66, respiratory rate 18 per minute. HEENT: Pallor positive. NECK: No lymphadenopathy. CHEST: Air entry present, equal bilateral. No added sounds. CARDIOVASCULAR: S1 and S2 are normal. No murmur. No gallop. ABDOMEN: Soft, nontender. No hepatosplenomegaly. EXTREMITIES: No edema. SPINE: Nontender. LABORATORY DATA: White count 12.5, hemoglobin 9.1, hematocrit 31.9, platelet 409. Troponin 0.10. LDH 395. Potassium 3.5. MEDICATIONS: Reviewed. ASSESSMENT: 1. Leukocytosis. 2. Anemia. 3. Chronic obstructive pulmonary disease exacerbation. 4. Congestive heart failure exacerbation. 5. [id number] myocardial infarction. 6. Hypothyroidism. PLAN: Evaluated by Cardiology, Dr. Hoffmann, consult appreciated. We will give potassium 20 mEq. p.o. today. Troponin declined to 0.10. He is ambulating in the room. Cardiac status improved, hemodynamically stable. Leukocytosis likely related to acute bronchitis, currently on IV antibiotics of ceftriaxone, we will continue that. Anemia, hemoglobin 9.9, stable. We will monitor and do the iron studies, B12, folate levels. Currently on anticoagulation with Xarelto, we will continue that. Cardiac stress test suggested by Dr. Hoffmann. Likely to be scheduled for Saturday. Maddy Wall MD
--- NOTE | 2018-01-04 20:36 | HP ---
DATE OF EXAM: 01/02/2018 HISTORY OF PRESENT ILLNESS: Mr. Dueñas is a 77-year-old male presented to the ED with worsening shortness of breath for 2 weeks. He also had cough with expectoration, expectorant is yellowish in color. No chest pain. No radiation of pain. He has history of COPD and CHF. The patient also has a history of multiple sclerosis, no exacerbation increased in the past, and history of hypertension, currently controlled on current medications. Hypothyroidism, controlled with current medications. Cardiac enzymes done in the ED showed elevated troponins consistent with non-STEMI. He is also on Xarelto anticoagulation for cardiac issues. Chest x-ray did not show infiltrate chest congestion. PAST MEDICAL HISTORY: COPD, CHF, coronary artery disease, hypothyroidism, multiple sclerosis, osteoarthritis, GE reflux, and BPH. PAST SURGICAL HISTORY: Appendectomy, coronary artery stent placement, and orthopedic surgery. PERSONAL HISTORY: Former smoker. No history of alcohol abuse. FAMILY HISTORY: Noncontributory. ALLERGIES: NO KNOWN DRUG ALLERGIES. SOCIAL HISTORY: Lives at home. HOME MEDICATIONS: Lipitor 40 mg daily, Remeron 15 mg p.o. at bedtime, Singulair 10 mg at bedtime, B complex vitamin, lisinopril 2.5 mg daily, Spiriva 18 mcg nebulizer, Xarelto 20 mg daily, digoxin 0.125 mg daily, magnesium 40 mg daily, mefloquine 250 mg every week, and Percocet p.r.n. REVIEW OF SYSTEMS: As per HPI. Rest of 12-point review of systems reviewed and negative. PHYSICAL EXAMINATION: GENERAL: Mild respiratory distress. VITAL SIGNS: Respiratory rate 20 per minute, afebrile, temperature 98.5, heart rate 86 per minute, and blood pressure 110/70. HEENT: Pallor positive. NECK: No lymphadenopathy. CHEST: Occasional rhonchi present. Crepitations at bases. ABDOMEN: Soft and nontender. No hepatosplenomegaly. EXTREMITIES: No edema. CENTRAL NERVOUS SYSTEM: Alert and oriented x3. No focal sensory motor deficit. Cranial nerves intact. SPINE: Nontender. DIAGNOSTIC DATA: Chest x-ray, vascular congestion, interstitial . EKG, no ST-T changes. ASSESSMENT: 1. Congestive heart failure acute exacerbation. 2. Chronic obstructive pulmonary disease exacerbation. 3. Non-ST elevation myocardial infarction. 4. Leukocytosis. 5. Anemia. 6. Hypothyroidism. PLAN: He will be admitted to the hospital tele monitoring. Cardiology consultation Dr. Hoffmann requested. Troponins are elevated at 0.14. We will do serial cardiac enzymes. We will continue home medications. Cardiac meds to continue digoxin 0.25 mg daily and Lasix 40 mg IV daily. We will give Xopenex every 6 hours scheduled p.r.n., Synthroid 175 mcg daily, lisinopril 2.5 mg daily, metoprolol 25 mg p.o. b.i.d., and continue Xarelto 20 mg daily. Aspirin 81 mg daily. Percocet p.r.n. for back pain and also continue Effexor XR 75 mg p.o. daily. We will continue to monitor clinically. Maddy Wall MD
--- NOTE | 2018-01-04 21:14 | PN ---
DATE: 01/04/2018 FOLLOWUP NOTE SUBJECTIVE: He is comfortable in bed, in no acute distress. Shortness of breath markedly improved. He is ambulating in the room. No chest pain. Cardiac enzymes, troponin elevated again at 0.13. Creatinine elevated at 2.4. Liver enzymes, AST 1500, ALT 1233. No events overnight. monitoring specialist reviewed. No abnormal rhythm. REVIEW OF SYSTEMS: As per HPI. Rest of 12-point review of systems reviewed negative. PHYSICAL EXAMINATION: GENERAL: Comfortable in bed, in no acute distress. VITAL SIGNS: Temperature 97.4, heart rate 56 per minute, blood pressure 126/73, respiratory rate 18 per minute, oxygen saturation 98% on room air. HEENT: Pallor positive. NECK: No lymphadenopathy. CHEST: Air entry present, equal bilateral, decreased at the bases. No crepitations. No rhonchi. CARDIAC: S1 and S2 are normal. No murmur. No gallop. ABDOMEN: Soft and nontender. No hepatosplenomegaly. EXTREMITIES: No edema. SPINE: Nontender. LABORATORY DATA: Sodium 140; potassium 6, repeat potassium 5.7; creatinine 2.4. AST is 1500, ALT is 1233. Hemoglobin 13.2, hematocrit 34.3, hemoglobin 10.4, platelet count 410. Influenza serology negative. Digoxin level 0.7. MEDICATIONS: Reviewed. Wellbutrin 100 mg p.o. daily, Lipitor 40 mg daily, aspirin 81 mg daily, Tylenol 650 mg every 4 hour p.r.n., ceftriaxone 1 g daily, digoxin 1.25 mg daily, Lasix 40 mg IV daily, Xopenex, Lopressor 25 mg p.o. b.i.d., Percocet p.r.n., Xarelto 20 mg daily, Effexor 75 mg p.o. daily. ASSESSMENT: 1. Anemia. 2. Leukocytosis. 3. Congestive heart failure exacerbation. 4. [id number] myocardial infarction. 5. Chronic obstructive pulmonary disease. 6. Hypothyroidism. 7. Acute renal insufficiency. PLAN: We will renally dose the medications. We will hold Xarelto. We will do heparin 5000 units b.i.d. for prophylactic doses. Percocet p.r.n .for back pain. Continue Xopenex inhalation. We will continue to monitor cardiac enzymes. Stress test is scheduled for [place] with Dr. Hoffmann. Discussed with the staff nurse. Discussed with the patient. Labs ordered for tomorrow. Maddy Wall MD A[facility]
[2018-01-04] MEDS: POLYETHYLENE GLYCOL 3350 17 GM/Dose PACKET PO SCH (22:08)
[2018-01-05] MEDS: guaiFENesin 100 mg/5 ml Syrup UD PO PRN ×3 (00:49→18:51)
[2018-01-05] MEDS: Ipratropium 0.02% Inhal Soln (0.5 mg/2.5 ml) UD IH SCH ×4 (01:56→21:00)
[2018-01-05] MEDS: Levalbuterol 0.63 MG/3 ML Inhal Soln UD IH PRN ×3 (01:56→16:23)
[2018-01-05] MEDS: Oxycodone/Acetaminophen 5/325 mg Tab PO PRN (04:25)
[2018-01-05] MEDS: Levothyroxine 175 MCG TAB PO SCH (05:37)
[2018-01-05 07:57] LABS: IRON 78 ug/dL (45-180)
[2018-01-05 07:58] LABS: MEAN CELL VOLUME 86.1 fl (80.0-105.0); MEAN CORPUSCULAR HEMOGLOBIN 26.3 pg (25.0-35.0); MEAN CORPUSCULAR HGB CONC 30.6 g/dl (31.0-37.0); MEAN PLATELET VOLUME 9.2 fl (7.0-11.0); RBC 3.8 10^6/uL (3.5-6.1); RED CELL DISTRIBUTION WIDTH 14.9 % (11.5-14.5); WHITE BLOOD COUNT 11.6 10^3/uL (4.5-11.0)
[2018-01-05 08:08] LABS: % IRON SATURATION 29 % (20-55); TOTAL IRON BINDING CAPACITY 273 ug/dL (261-462)
[2018-01-05 08:27] LABS: ALBUMIN 3.2 g/dL (3.0-4.8); CALCIUM 8.3 mg/dL (8.4-10.5)
[2018-01-05] MEDS: Levalbuterol 0.63 MG/3 ML Inhal Soln UD IH SCH ×3 (08:50→21:00)
--- NOTE | 2018-01-05 09:26 | CP.PCM.PN ---
Subjective - Date & Time of Evaluation Date of Evaluation: 01/05/18 Time of Evaluation: 09:15 - Subjective Subjective: SUBJECTIVE: He is comfortable in bed, in no acute distress. Shortness of breath markedly improved. He is ambulating in the room. No chest pain. Cardiac enzymes, troponin elevated again at 0.13. Creatinine elevated at 2.4. Liver enzymes, AST 1500, ALT 1233 yesterday. repeat pending. No events overnight. monitor technician reviewed. No abnormal rhythm. REVIEW OF SYSTEMS: As per HPI. Rest of 12-point review of systems reviewed negative. PHYSICAL EXAMINATION: GENERAL: Comfortable in bed, in no acute distress. VITAL SIGNS: reviewed. HEENT: Pallor positive. NECK: No lymphadenopathy. CHEST: Air entry present, equal bilateral, decreased at the bases. No crepitations. No rhonchi. CARDIAC: S1 and S2 are normal. No murmur. No gallop. ABDOMEN: Soft and nontender. No hepatosplenomegaly. EXTREMITIES: No edema. SPINE: Nontender. LABORATORY DATA: reviewed. MEDICATIONS: Reviewed. Wellbutrin 100 mg p.o. daily, Lipitor 40 mg daily, aspirin 81 mg daily, Tylenol 650 mg every 4 hour p.r.n., ceftriaxone 1 g daily, digoxin 1.25 mg daily, Lasix 40 mg IV daily, Xopenex, Lopressor 25 mg p.o. b.i.d., Percocet p.r.n., Xarelto 20 mg daily, Effexor 75 mg p.o. daily. ASSESSMENT: 1. Anemia. 2. Leukocytosis. 3. Congestive heart failure exacerbation. 4. Abv-ET-tnbkwnxse myocardial infarction. 5. Chronic obstructive pulmonary disease, exacerbation. 6. Hypothyroidism. 7. Acute renal insufficiency. PLAN: hold Xarelto, heparin 5000 units b.i.d. for prophylactic doses. Percocet p.r.n .for back pain. Continue Xopenex inhalation. We will continue to monitor cardiac enzymes. Stress test is scheduled for Saturday with Dr. Hoffmann. LFT pending. On IV ceftrioxone for acute bronchitis , continue. UA negative. Discussed with the staff nurse. Discussed with the patient. Labs ordered for tomorrow. Continue bedside PT. Maddy Wall MD Objective - Vital Signs/Intake and Output Vital Signs (last 24 hours): Temp Pulse Resp BP Pulse Ox 97.8 F 72 20 129/75 96 01/05/18 06:00 01/05/18 06:00 01/05/18 06:00 01/05/18 06:00 01/05/18 06:00 Intake and Output: 01/05/18 01/05/18 06:59 18:59 Intake Total 600 Balance 600 - Medications Medications: Current Medications Acetaminophen (Tylenol 325mg Tab) 650 mg PO Q4H PRN PRN Reason: Fever >100.5 F Aspirin (Ecotrin) 81 mg PO DAILY [facility] Last Admin: 01/04/18 10:15 Dose: 81 mg Atorvastatin Calcium (Lipitor) 40 mg PO QAM [facility] Last Admin: 01/04/18 10:15 Dose: 40 mg Bupropion HCl (Wellbutrin) 100 mg PO DAILY [facility] Last Admin: 01/04/18 10:15 Dose: 100 mg Digoxin (Digoxin) 0.125 mg PO 1400 [facility] Last Admin: 01/04/18 13:37 Dose: 0.125 mg Furosemide (Lasix) 40 mg IV DAILY [facility] Last Admin: 01/04/18 10:15 Dose: 40 mg Guaifenesin (Robitussin) 100 mg PO Q4H PRN PRN Reason: Cough Last Admin: 01/05/18 04:27 Dose: 100 mg Heparin Sodium (Porcine) (Heparin) 5,000 units SC Q12 [facility]; Protocol Ceftriaxone Sodium (Rocephin 1 Gram Ivpb) 1 gm in 100 mls @ 100 mls/hr IVPB DAILY [facility]; Protocol Last Admin: 01/04/18 10:17 Dose: 100 mls/hr Ipratropium [place] (Atrovent) 0.5 mg IH [id number] [facility] Last Admin: 01/05/18 08:50 Dose: 0.5 mg Levalbuterol HCl (Xopenex) 0.63 mg IH TIDRESP [facility] Last Admin: 01/05/18 08:50 Dose: 0.63 mg Levalbuterol HCl (Xopenex) 0.63 mg IH [id number] PRN PRN Reason: Shortness of Breath Last Admin: 01/05/18 06:02 Dose: 0.63 mg Levothyroxine Sodium (Synthroid) 175 mcg PO 0600 [facility] Last Admin: 01/05/18 05:37 Dose: 175 mcg Lisinopril (Zestril) 2.5 mg PO DAILY [facility] Last Admin: 01/04/18 10:15 Dose: 2.5 mg Metoprolol Tartrate (Lopressor) 25 mg PO BID [facility] Last Admin: 01/04/18 17:18 Dose: 25 mg Mirtazapine (Remeron) 15 mg PO HS [facility] Last Admin: 01/04/18 22:07 Dose: 15 mg Montelukast Sodium (Singulair) 10 mg PO HS [facility] Last Admin: 01/04/18 22:07 Dose: 10 mg Arnuity Ellipta 100 (Mcg (Home)) 100 mcg IH DAILY [facility] Last Admin: 01/04/18 10:18 Dose: Not Given Temazepam [Restoril] (30 Mg (Home)) 30 mg PO HS [facility] Last Admin: 01/04/18 21:58 Dose: Not Given Ondansetron HCl (Zofran Inj) 4 mg IVP Q4H PRN PRN Reason: Nausea/Vomiting Oxycodone/Acetaminophen (Percocet 5/325 Mg Tab) 1 tab PO Q6H PRN PRN Reason: Pain, moderate (4-7) Stop: 01/06/18 13:38 Last Admin: 01/05/18 04:25 Dose: 1 tab Pantoprazole Sodium (Protonix Ec Tab) 40 mg PO ACB [facility] Last Admin: 01/04/18 08:17 Dose: 40 mg Polyethylene Glycol (Miralax) 34 gm PO HS [facility] Last Admin: 01/04/18 22:08 Dose: Not Given Potassium Chloride (K-Dur 20 Meq Er Tab) 20 meq PO DAILY [facility] Last Admin: 01/04/18 10:18 Dose: Not Given Tiotropium [place] (Spiriva) 18 mcg INH DAILY [facility] Last Admin: 01/04/18 10:15 Dose: 18 mcg Venlafaxine HCl (Effexor Xr) 75 mg PO DAILY [facility] Last Admin: 01/04/18 10:15 Dose: 75 mg - Labs Labs: 01/05/18 07:00 01/05/18 07:00 PT 15.8 SECONDS (9.4-12.5) H 01/02/18 14:25 INR 1.38 01/02/18 14:25 APTT 34.7 Seconds (25.1-36.5) 01/02/18 14:25
[2018-01-05] MEDS: cefTRIAXone 1 gm 1 GM/100 ML BAG IVPB SCH (10:08)
[2018-01-05] MEDS: Tiotropium 18 mcg Cap For Inhalation INH SCH (10:27)
[2018-01-05] MEDS: Pantoprazole 40 mg EC Tab PO SCH (10:27)
[2018-01-05] MEDS: Venlafaxine 75 mg ER Cap PO SCH (10:27)
[2018-01-05] MEDS: ARNUITY ELLIPTA 100 MCG IH SCH (14:25)
[2018-01-05] MEDS: Digoxin 125 mcg (0.125 mg) Tab PO SCH (15:16)
[2018-01-05] MEDS: POLYETHYLENE GLYCOL 3350 17 GM/Dose PACKET PO SCH (22:06)
[2018-01-06] MEDS: guaiFENesin 100 mg/5 ml Syrup UD PO PRN ×2 (00:41→18:12)
[2018-01-06] MEDS: Ipratropium 0.02% Inhal Soln (0.5 mg/2.5 ml) UD IH SCH ×3 (02:45→13:18)
[2018-01-06] MEDS: TEMAZEPAM 30 MG PO SCH ×2 (03:23→22:00)
[2018-01-06] MEDS: Levothyroxine 175 MCG TAB PO SCH (05:59)
[2018-01-06 07:20] LABS: BASO # 0.13 K/mm3 (0.0-2.0); BASO % 1.2 % (0.0-3.0); EOS % 8.9 % (1.5-5.0); GRAN # 6.96 (1.4-6.5); GRAN % 61.6 % (50.0-68.0); HEMOGLOBIN 10.1 g/dL (14.0-18.0); LYMPH # 2.6 (1.2-3.4); LYMPH % 23.2 % (22.0-35.0); MEAN CELL VOLUME 85.9 fl (80.0-105.0); MEAN CORPUSCULAR HEMOGLOBIN 26.9 pg (25.0-35.0); MEAN CORPUSCULAR HGB CONC 31.3 g/dl (31.0-37.0); MEAN PLATELET VOLUME 9.1 fl (7.0-11.0); MONO # 0.6 (0.1-0.6); MONO % 5.1 % (1.0-6.0); RBC 3.76 10^6/uL (3.5-6.1); RED CELL DISTRIBUTION WIDTH 14.7 % (11.5-14.5); WHITE BLOOD COUNT 11.3 10^3/uL (4.5-11.0)
[2018-01-06 07:44] LABS: ALB/GLOB RATIO 0.9 (1.1-1.8); CALCIUM 8.3 mg/dL (8.4-10.5)
[2018-01-06] MEDS: Levalbuterol 0.63 MG/3 ML Inhal Soln UD IH SCH ×3 (07:56→20:50)
--- NOTE | 2018-01-06 07:56 | CP.PCM.PN ---
Subjective - Date & Time of Evaluation Date of Evaluation: 01/06/18 Time of Evaluation: 06:35 - Subjective Subjective: Awake, alert, no distress, lying in bed Reason for consultation and follow up:Cardiac evaluation of shortness of breath, history of coronary artery disease post stent, history of atrial fibrillation Seen and examined by me and Dr. Hoffmann Objective - Vital Signs/Intake and Output Vital Signs (last 24 hours): Temp Pulse Resp BP Pulse Ox 98.0 F 71 20 142/74 95 01/06/18 06:00 01/06/18 06:00 01/06/18 06:00 01/06/18 06:00 01/06/18 06:00 Intake and Output: 01/06/18 01/06/18 06:59 18:59 Intake Total 740 Output Total 1350 Balance -610 - Medications Medications: Current Medications Aspirin (Ecotrin) 81 mg PO DAILY [facility] Last Admin: 01/05/18 10:07 Dose: 81 mg Bupropion HCl (Wellbutrin) 100 mg PO DAILY [facility] Last Admin: 01/05/18 10:08 Dose: 100 mg Digoxin (Digoxin) 0.125 mg PO MoWeFr@1400 [facility] Furosemide (Lasix) 40 mg IV DAILY [facility] Last Admin: 01/05/18 10:09 Dose: 40 mg Guaifenesin (Robitussin) 100 mg PO Q4H PRN PRN Reason: Cough Last Admin: 01/06/18 00:41 Dose: 100 mg Heparin Sodium (Porcine) (Heparin) 5,000 units SC Q12 [facility]; Protocol Last Admin: 01/05/18 21:58 Dose: 5,000 units Ceftriaxone Sodium (Rocephin 1 Gram Ivpb) 1 gm in 100 mls @ 100 mls/hr IVPB DAILY [facility]; Protocol Last Admin: 01/05/18 10:08 Dose: 100 mls/hr Ipratropium [place] (Atrovent) 0.5 mg IH [id number] [facility] Last Admin: 01/06/18 02:45 Dose: 0.5 mg Levalbuterol HCl (Xopenex) 0.63 mg IH TIDRESP [facility] Last Admin: 01/05/18 21:00 Dose: 0.63 mg Levalbuterol HCl (Xopenex) 0.63 mg IH [id number] PRN PRN Reason: Shortness of Breath Last Admin: 01/05/18 16:23 Dose: 0.63 mg Levothyroxine Sodium (Synthroid) 175 mcg PO 0600 [facility] Last Admin: 01/06/18 05:59 Dose: Not Given Lisinopril (Zestril) 2.5 mg PO DAILY [facility] Last Admin: 01/05/18 10:06 Dose: 2.5 mg Metoprolol Tartrate (Lopressor) 25 mg PO BID [facility] Last Admin: 01/05/18 18:38 Dose: 25 mg Mirtazapine (Remeron) 15 mg PO HS [facility] Last Admin: 01/05/18 21:58 Dose: 15 mg Montelukast Sodium (Singulair) 10 mg PO HS [facility] Last Admin: 01/05/18 21:58 Dose: 10 mg Arnuity Ellipta 100 (Mcg (Home)) 100 mcg IH DAILY [facility] Last Admin: 01/05/18 14:25 Dose: Not Given Temazepam [Restoril] (30 Mg (Home)) 30 mg PO [facility] Last Admin: 01/06/18 03:23 Dose: Not Given Ondansetron HCl (Zofran Inj) 4 mg IVP Q4H PRN PRN Reason: Nausea/Vomiting Oxycodone/Acetaminophen (Percocet 5/325 Mg Tab) 1 tab PO Q6H PRN PRN Reason: Pain, moderate (4-7) Stop: 01/06/18 13:38 Last Admin: 01/05/18 04:25 Dose: 1 tab Pantoprazole Sodium (Protonix Ec Tab) 40 mg PO ACB [facility] Last Admin: 01/05/18 10:27 Dose: 40 mg Polyethylene Glycol (Miralax) 34 gm PO [facility] Last Admin: 01/05/18 22:06 Dose: Not Given Potassium Chloride (K-Dur 20 Meq Er Tab) 20 meq PO DAILY [facility] Last Admin: 01/04/18 10:18 Dose: Not Given Tiotropium [place] (Spiriva) 18 mcg INH DAILY [facility] Last Admin: 01/05/18 10:27 Dose: 18 mcg Venlafaxine HCl (Effexor Xr) 75 mg PO DAILY [facility] Last Admin: 01/05/18 10:27 Dose: 75 mg - Labs Labs: 01/06/18 06:45 01/06/18 06:45 PT 15.8 SECONDS (9.4-12.5) H 01/02/18 14:25 INR 1.38 01/02/18 14:25 APTT 34.7 Seconds (25.1-36.5) 01/02/18 14:25 - Constitutional Appears: Non-toxic, No Acute Distress - Head Exam Head Exam: NORMAL INSPECTION, NORMOCEPHALIC - Eye Exam Eye Exam: Normal appearance Pupil Exam: NORMAL ACCOMODATION - ENT Exam ENT Exam: Mucous Membranes Moist, Normal Exam - Respiratory Exam Respiratory Exam: Decreased Breath Sounds, Clear to Ausculation Bilateral, NORMAL BREATHING PATTERN - Cardiovascular Exam Cardiovascular Exam: REGULAR RHYTHM, +S1, +S2 Additional comments: Telemetry NSR 60's - GI/Abdominal Exam GI & Abdominal Exam: Soft, Normal Bowel Sounds - Extremities Exam Extremities Exam: Full ROM, Normal Capillary Refill - Neurological Exam Neurological Exam: Alert, Awake, Oriented x3 - Psychiatric Exam Psychiatric exam: Normal Affect, Normal Mood - Skin Skin Exam: Dry, Normal Color, Warm Assessment and Plan - Assessment and Plan (Free Text) Assessment: A 77 yo male who came in to the ER due to worsening cough and shortness of breath. History of hypertension, hyperlipidemia,hypothyroidism, multiple sclerosis, COPD, coronary artery disease post stent [address] Lopez. He was scheduled to have stress test as out patient. Initial chest X ray showed congestive heart failure. Borderline troponin positive intdeterminate range but denies cehst pain. 10/2017 ECHO showed LVEF of 55%. For Stress test today. Plan: For stress test today Kept NPO Denies chest pain or shortness of breath Had episode of disorientation last night, he was given Xanax Will decrease Xanax dose PRN Heart rate controlled Blood pressure controlled On ASA 81 mg daily,Wellbutrin 100 mg daily,Digoxin 0.125 mg daily, Lasix 40 mg daily, Synthroid 175 mcg daily,Lisinopril 2.5 mg daily,Lopressor 25 mg BID,Kdur 20 meq daily. Further recommendation after Stress test Will follow up Chart revoewed Plan and treatment discussed with Dr. Hoffmann
[2018-01-06] MEDS: Pantoprazole 40 mg EC Tab PO SCH (08:26)
[2018-01-06] MEDS ORDERED: Aminophylline 25 mg/ml Inj ONE (08:42)
[2018-01-06] MEDS ORDERED: Digoxin 125 mcg (0.125 mg) Tab PO SCH ×2 (10:00→14:00)
--- NOTE | 2018-01-06 10:13 | CP.PCM.PN ---
<Gurdeep Mulligan - Last Filed: 01/06/18 14:29> Subjective - Date & Time of Evaluation Date of Evaluation: 01/06/18 Time of Evaluation: 07:10 - Subjective Subjective: Progress Note for Dr. Osborne Service Patient seen and examined at bedside. No acute events overnight reported by nursing. Was noted to have acutely elevated LFTs and Cr over the weekend, but improving today. Suspicion for possible shock insult due to hypotensive pressures reported on 01/04/18, will consult GI for their input. Complains of persisting shortness of breath, denies current chest pain, nausea, emesis, fevers, chills. Pending stress test today. Objective - Vital Signs/Intake and Output Vital Signs (last 24 hours): Temp Pulse Resp BP Pulse Ox 98.0 F 71 20 142/74 95 01/06/18 06:00 01/06/18 06:00 01/06/18 06:00 01/06/18 06:00 01/06/18 06:00 Intake and Output: 01/06/18 01/06/18 06:59 18:59 Intake Total 740 Output Total 1350 Balance -610 - Medications Medications: Current Medications Alprazolam (Xanax) 0.25 mg PO HS PRN; Protocol PRN Reason: Agitation Stop: 01/13/18 08:07 Aspirin (Ecotrin) 81 mg PO DAILY [facility] Last Admin: 01/05/18 10:07 Dose: 81 mg Bupropion HCl (Wellbutrin) 100 mg PO DAILY [facility] Last Admin: 01/05/18 10:08 Dose: 100 mg Digoxin (Digoxin) 0.125 mg PO MoWeFr@1400 [facility] Furosemide (Lasix) 40 mg IV DAILY [facility] Last Admin: 01/05/18 10:09 Dose: 40 mg Guaifenesin (Robitussin) 100 mg PO Q4H PRN PRN Reason: Cough Last Admin: 01/06/18 00:41 Dose: 100 mg Heparin Sodium (Porcine) (Heparin) 5,000 units SC Q12 [facility]; Protocol Last Admin: 01/05/18 21:58 Dose: 5,000 units Ceftriaxone Sodium (Rocephin 1 Gram Ivpb) 1 gm in 100 mls @ 100 mls/hr IVPB DAILY [facility]; Protocol Last Admin: 01/05/18 10:08 Dose: 100 mls/hr Ipratropium [place] (Atrovent) 0.5 mg IH [id number] [facility] Last Admin: 01/06/18 07:55 Dose: Not Given Levalbuterol HCl (Xopenex) 0.63 mg IH TIDRESP [facility] Last Admin: 01/06/18 07:56 Dose: Not Given Levalbuterol HCl (Xopenex) 0.63 mg IH [id number] PRN PRN Reason: Shortness of Breath Last Admin: 01/05/18 16:23 Dose: 0.63 mg Levothyroxine Sodium (Synthroid) 175 mcg PO 0600 [facility] Last Admin: 01/06/18 05:59 Dose: Not Given Lisinopril (Zestril) 2.5 mg PO DAILY [facility] Last Admin: 01/05/18 10:06 Dose: 2.5 mg Metoprolol Tartrate (Lopressor) 25 mg PO BID [facility] Last Admin: 01/05/18 18:38 Dose: 25 mg Mirtazapine (Remeron) 15 mg PO HS [facility] Last Admin: 01/05/18 21:58 Dose: 15 mg Montelukast Sodium (Singulair) 10 mg PO HS [facility] Last Admin: 01/05/18 21:58 Dose: 10 mg Arnuity Ellipta 100 (Mcg (Home)) 100 mcg IH DAILY [facility] Last Admin: 01/05/18 14:25 Dose: Not Given Temazepam [Restoril] (30 Mg (Home)) 30 mg PO HS [facility] Last Admin: 01/06/18 03:23 Dose: Not Given Ondansetron HCl (Zofran Inj) 4 mg IVP Q4H PRN PRN Reason: Nausea/Vomiting Oxycodone/Acetaminophen (Percocet 5/325 Mg Tab) 1 tab PO Q6H PRN PRN Reason: Pain, moderate (4-7) Stop: 01/06/18 13:38 Last Admin: 01/05/18 04:25 Dose: 1 tab Pantoprazole Sodium (Protonix Ec Tab) 40 mg PO ACB [facility] Last Admin: 01/06/18 08:26 Dose: Not Given Polyethylene Glycol (Miralax) 34 gm PO [facility] Last Admin: 01/05/18 22:06 Dose: Not Given Potassium Chloride (K-Dur 20 Meq Er Tab) 20 meq PO DAILY [facility] Last Admin: 01/04/18 10:18 Dose: Not Given Tiotropium [place] (Spiriva) 18 mcg INH DAILY [facility] Last Admin: 01/05/18 10:27 Dose: 18 mcg Venlafaxine HCl (Effexor Xr) 75 mg PO DAILY [facility] Last Admin: 01/05/18 10:27 Dose: 75 mg - Labs Labs: 01/06/18 06:45 01/06/18 06:45 PT 15.8 SECONDS (9.4-12.5) H 01/02/18 14:25 INR 1.38 01/02/18 14:25 APTT 34.7 Seconds (25.1-36.5) 01/02/18 14:25 - Constitutional Appears: Non-toxic, No Acute Distress - Head Exam Head Exam: ATRAUMATIC, NORMAL INSPECTION, NORMOCEPHALIC - Eye Exam Eye Exam: EOMI, Normal appearance. absent: Conjunctival injection, Scleral icterus Pupil Exam: absent: Irregular, Unequal - ENT Exam ENT Exam: Mucous Membranes Moist - Neck Exam Neck Exam: Full ROM. absent: Normal Inspection - Respiratory Exam Respiratory Exam: Clear to Ausculation Bilateral, NORMAL BREATHING PATTERN. absent: Accessory Muscle Use, Chest Wall Tenderness, Decreased Breath Sounds, Rales, Rhonchi, Wheezes, Respiratory Distress (pt reports shortness of breath, but does not appear short of breath or tachypnic, not in respiratory distress at time of exam) - Cardiovascular Exam Cardiovascular Exam: REGULAR RHYTHM, RRR, +S1, +S2. absent: Bradycardia, Tachycardia, Irregular Rhythm, JVD, +S4 - GI/Abdominal Exam GI & Abdominal Exam: Soft, Normal Bowel Sounds. absent: Distended, Firm, Rigid, Tenderness, Diminished Bowel Sounds, Hyperactive Bowel Sounds, Hypoactive Bowel Sounds - Extremities Exam Extremities Exam: Normal Inspection. absent: Calf Tenderness, Pedal Edema, Tenderness - Neurological Exam Additional comments: awake and alert, following all commands appropriately, moving all extremities spontaneously - Psychiatric Exam Psychiatric exam: Normal Affect, Normal Mood - Skin Skin Exam: Dry, Intact, Normal Color, Warm Assessment and Plan - Assessment and Plan (Free Text) Assessment: This is a 77 yo M with PMH of MS, Afib on Xarelto, CAD s/p stent, HTN, COPD, and Hypothyroidism who presented to [facility] with complaints of worsening shortness of breath x2 weeks, productive cough, and fevers (Tmax at home 101F). Over the weekend, he had a hypotensive episode, and demonstrated sharply increasing LFTs and Cr, now improving. Plan: 1) Shortness of breath -ddx: PNA vs COPD exacerbation vs acute CHF exacerbation vs 2/2 NSTEMI, may be multifactorial -trops on arrival 0.14 -> 0.1 -> 0.13 (last 01/03/18) continue metoprolol, lisinopril, ASA, lasix, and digoxin as per Cardio -pending cardiac stress test today, -afebrile and minimal leukocytosis x2 days (WBCs 11.6, 11.3), will hold rocephin given elevated LFTs -Blood cultures negative x2 days -continue xopenex bud & prn, spiriva daily -not wheezing, no indication for steroids at this time -continue supplemental O2 as needed, O2 goals 88-92% in COPD pt 2) Rapid severe LFT elevation -ddx: shock liver vs acetaminophen tox vs acute hepatitis -acetaminophen level negative today -acute hepatitis panel negative -GI consulted, appreciate their recs -US liver obtained, notable for cholelithiasis and hepatomegaly, no choledochol ithiasis -shock etiology possible given low BPs on 01/04, increased CR as well, both improving today, continue to monitor -avoid hepatotoxic drugs 3) JOSIAH -improving from 2.3 to 1.9, still elevated over baseline -continue to monitor, avoid nephrotoxic drugs Dispo: Telemetry, pending Cardiac stress test Ppx: protonix for GI, SCDs for DVT (Heparin on hold) Reviewed and discussed with attending, Dr. Osborne <Ap Osborne S - Last Filed: 01/06/18 21:54> Objective - Vital Signs/Intake and Output Vital Signs (last 24 hours): Temp Pulse Resp BP Pulse Ox 98.7 F 78 19 142/70 95 01/06/18 18:00 01/06/18 18:11 01/06/18 18:00 01/06/18 18:11 01/06/18 06:00 Intake and Output: 01/06/18 01/07/18 18:59 06:59 Intake Total 477 Output Total 900 Balance -423 - Medications Medications: Current Medications Alprazolam (Xanax) 0.25 mg PO HS PRN; Protocol PRN Reason: Agitation Stop: 01/13/18 08:07 Aspirin (Ecotrin) 81 mg PO DAILY [facility] Last Admin: 01/06/18 12:31 Dose: 81 mg Bupropion HCl (Wellbutrin) 100 mg PO DAILY [facility] Last Admin: 01/06/18 12:31 Dose: 100 mg Digoxin (Digoxin) 0.125 mg PO MoWeFr@1400 [facility] Last Admin: 01/06/18 14:38 Dose: 0.125 mg Furosemide (Lasix) 40 mg IV DAILY [facility] Last Admin: 01/06/18 12:30 Dose: 40 mg Guaifenesin (Robitussin) 100 mg PO Q4H PRN PRN Reason: Cough Last Admin: 01/06/18 18:12 Dose: 100 mg Heparin Sodium (Porcine) (Heparin) 5,000 units SC Q12 [facility]; Protocol Last Admin: 01/05/18 21:58 Dose: 5,000 units Ceftriaxone Sodium (Rocephin 1 Gram Ivpb) 1 gm in 100 mls @ 100 mls/hr IVPB DAILY [facility]; Protocol Last Admin: 01/05/18 10:08 Dose: 100 mls/hr Ipratropium [place] (Atrovent) 0.5 mg IH [id number] [facility] Last Admin: 01/06/18 13:18 Dose: 0.5 mg Levalbuterol HCl (Xopenex) 0.63 mg IH TIDRESP [facility] Last Admin: 01/06/18 20:50 Dose: 0.63 mg Levalbuterol HCl (Xopenex) 0.63 mg IH [id number] PRN PRN Reason: Shortness of Breath Last Admin: 01/05/18 16:23 Dose: 0.63 mg Levothyroxine Sodium (Synthroid) 175 mcg PO 0600 [facility] Last Admin: 01/06/18 05:59 Dose: Not Given Lisinopril (Zestril) 2.5 mg PO DAILY [facility] Last Admin: 01/06/18 12:30 Dose: 2.5 mg Metoprolol Tartrate (Lopressor) 25 mg PO BID [facility] Last Admin: 01/06/18 18:11 Dose: 25 mg Mirtazapine (Remeron) 15 mg PO HS [facility] Last Admin: 01/05/18 21:58 Dose: 15 mg Montelukast Sodium (Singulair) 10 mg PO HS [facility] Last Admin: 01/05/18 21:58 Dose: 10 mg Arnuity Ellipta 100 (Mcg (Home)) 100 mcg IH DAILY [facility] Last Admin: 01/06/18 10:23 Dose: Not Given Temazepam [Restoril] (30 Mg (Home)) 30 mg PO HS [facility] Last Admin: 01/06/18 03:23 Dose: Not Given Ondansetron HCl (Zofran Inj) 4 mg IVP Q4H PRN PRN Reason: Nausea/Vomiting Pantoprazole Sodium (Protonix Ec Tab) 40 mg PO ACB [facility] Last Admin: 01/06/18 08:26 Dose: Not Given Polyethylene Glycol (Miralax) 34 gm PO HS [facility] Last Admin: 01/05/18 22:06 Dose: Not Given Potassium Chloride (K-Dur 20 Meq Er Tab) 20 meq PO DAILY [facility] Last Admin: 01/04/18 10:18 Dose: Not Given Tiotropium [place] (Spiriva) 18 mcg INH DAILY [facility] Last Admin: 01/06/18 12:31 Dose: 18 mcg Venlafaxine HCl (Effexor Xr) 75 mg PO DAILY [facility] Last Admin: 01/06/18 12:31 Dose: 75 mg - Labs Labs: 01/06/18 06:45 01/06/18 06:45 PT 15.8 SECONDS (9.4-12.5) H 01/02/18 14:25 INR 1.38 01/02/18 14:25 APTT 34.7 Seconds (25.1-36.5) 01/02/18 14:25 Assessment and Plan - Assessment and Plan (Free Text) Plan: Pt seen and examined. I have reviewed the note of the medical education coordinator and agree with it. I have discussed the assessment and plan with the resident. I have reviewed the patient's labs and medications. Pt with SOB due to acute CHF. Trop mildly elevated. He is on ASA and Metoprolol. Pt with elevated LFTs. Hold APAP and Atorvastatin. May have congestion from CHF. He had a episode of low BP and this may also have caused the LFT to increase. He urban Rocephin and this can cause transmitis. Will hold. I have ordered Acute Hepatitis workup. Will get GI to evaluate the liver. Will get Liver US. Pt with JOSIAH and that has improved.
[2018-01-06] MEDS: ARNUITY ELLIPTA 100 MCG IH SCH (10:23)
[2018-01-06] MEDS ORDERED: Potassium Chloride 20 mEq ER Tab PO STA (11:34)
--- NOTE | 2018-01-06 11:37 | CP.PCM.CON ---
<Joy Barajas - Last Filed: 01/06/18 11:59> History of Present Illness - History of Present Illness History of Present Illness: Gastroenterology Fellow/PGY6 Consult Note 77 year old male with PMH of MS, Afib on Xarelto, CAD s/p stent, COPD, Hypothyroidism, and HTN presenting with shortness of breath. Patient on admission noted to have shortness of breath for around two weeks duration. Cur rently endorses improved shortness of breath since admission. Denies nausea, vomiting, hematemesis, abdominal pain, diarrhea, constipation, melena, hematochezia, yellowing of skin/eyes, leg swelling, or confusion. Active treatment of CHF decompensation and COPD exacerbation with plan for stress test today. GI consultation for elevated LFTs. Prior history of Amezcua's esophagus with normal esophageal pathology EGD in 2014 and 08/2015 with other findings of two 5mm esophageal nodules (at 34cm and 35cm) with benign squamous epithelium on pathology. Prior colonoscopy 08/2015 showed 5mm ascending tubular adenoma and 1cm descending tubulovillous adenoma with recommended three year surveillance. Family History- denies stomach cancer, colon cancer Social History- quit tobacco; denies alcohol/illicit drug use Surgical History- appendectomy, right inguinal hernia repair, cardiac stent, right shoulder arthroplasty Review of Systems - Review of Systems Review of Systems: 12-point review of systems negative except for as above Past Patient History - Infectious Disease Hx of Infectious Diseases: None - Tetanus Immunizations Tetanus Immunization: Unknown - Past Medical History & Family History Past Medical History?: Yes - Past Social History Smoking Status: Former Smoker - CARDIAC Hx Hypercholesterolemia: Yes Hx Hypertension: Yes - PULMONARY Hx Chronic Obstructive Pulmonary Disease (COPD): Yes - NEUROLOGICAL Hx Neurological Disorder: Yes Other/Comment: NEUROPATHY - HEENT Hx HEENT Problems: Yes Other/Comment: [place] - RENAL Hx Chronic Kidney Disease: Yes - ENDOCRINE/METABOLIC Hx Endocrine Disorders: Yes Hx Hypothyroidism: Yes - HEMATOLOGICAL/ONCOLOGICAL Hx Blood Disorders: Yes Other/Comment: MS - INTEGUMENTARY Hx Dermatological Problems: Yes Other/Comment: dermatitis - MUSCULOSKELETAL/RHEUMATOLOGICAL Hx Musculoskeletal Disorders: Yes Hx Falls: Yes Other/Comment: R SHOULDER ARTHROPLASTY - GASTROINTESTINAL Hx Gastrointestinal Disorders: Yes Hx Gastroesophageal Reflux: Yes - GENITOURINARY/GYNECOLOGICAL Hx Genitourinary Disorders: Yes Hx Prostate Problems: Yes (BPH) - PSYCHIATRIC Hx Emotional Abuse: No Hx Physical Abuse: No - SURGICAL HISTORY Hx Cardiac Catheterization: Yes - ANESTHESIA Hx Anesthesia Reactions: Yes ("BLEEDING FROM AIRWAY USED") Hx Malignant Hyperthermia: No Meds Allergies/Adverse Reactions: Allergies Allergy/AdvReac Type Severity Reaction Status Date / Time tape AdvReac REDNESS Uncoded 01/02/18 13:54 - Medications Medications: Current Medications Alprazolam (Xanax) 0.25 mg PO HS PRN; Protocol PRN Reason: Agitation Stop: 01/13/18 08:07 Aspirin (Ecotrin) 81 mg PO DAILY [facility] Last Admin: 01/05/18 10:07 Dose: 81 mg Bupropion HCl (Wellbutrin) 100 mg PO DAILY [facility] Last Admin: 01/05/18 10:08 Dose: 100 mg Digoxin (Digoxin) 0.125 mg PO MoWeFr@1400 DUNIA Furosemide (Lasix) 40 mg IV DAILY [facility] Last Admin: 01/05/18 10:09 Dose: 40 mg Guaifenesin (Robitussin) 100 mg PO Q4H PRN PRN Reason: Cough Last Admin: 01/06/18 00:41 Dose: 100 mg Heparin Sodium (Porcine) (Heparin) 5,000 units SC Q12 [facility]; Protocol Last Admin: 01/05/18 21:58 Dose: 5,000 units Ceftriaxone Sodium (Rocephin 1 Gram Ivpb) 1 gm in 100 mls @ 100 mls/hr IVPB DAILY [facility]; Protocol Last Admin: 01/05/18 10:08 Dose: 100 mls/hr Ipratropium [place] (Atrovent) 0.5 mg IH [id number] [facility] Last Admin: 01/06/18 07:55 Dose: Not Given Levalbuterol HCl (Xopenex) 0.63 mg IH TIDRESP [facility] Last Admin: 01/06/18 07:56 Dose: Not Given Levalbuterol HCl (Xopenex) 0.63 mg IH [id number] PRN PRN Reason: Shortness of Breath Last Admin: 01/05/18 16:23 Dose: 0.63 mg Levothyroxine Sodium (Synthroid) 175 mcg PO 0600 [facility] Last Admin: 01/06/18 05:59 Dose: Not Given Lisinopril (Zestril) 2.5 mg PO DAILY [facility] Last Admin: 01/05/18 10:06 Dose: 2.5 mg Metoprolol Tartrate (Lopressor) 25 mg PO BID [facility] Last Admin: 01/06/18 10:23 Dose: Not Given Mirtazapine (Remeron) 15 mg PO [facility] Last Admin: 01/05/18 21:58 Dose: 15 mg Montelukast Sodium (Singulair) 10 mg PO [facility] Last Admin: 01/05/18 21:58 Dose: 10 mg Arnuity Ellipta 100 (Mcg (Home)) 100 mcg IH DAILY [facility] Last Admin: 01/06/18 10:23 Dose: Not Given Temazepam [Restoril] (30 Mg (Home)) 30 mg PO [facility] Last Admin: 01/06/18 03:23 Dose: Not Given Ondansetron HCl (Zofran Inj) 4 mg IVP Q4H PRN PRN Reason: Nausea/Vomiting Oxycodone/Acetaminophen (Percocet 5/325 Mg Tab) 1 tab PO Q6H PRN PRN Reason: Pain, moderate (4-7) Stop: 01/06/18 13:38 Last Admin: 01/05/18 04:25 Dose: 1 tab Pantoprazole Sodium (Protonix Ec Tab) 40 mg PO ACB [facility] Last Admin: 01/06/18 08:26 Dose: Not Given Polyethylene Glycol (Miralax) 34 gm PO [facility] Last Admin: 01/05/18 22:06 Dose: Not Given Potassium Chloride (K-Dur 20 Meq Er Tab) 20 meq PO DAILY [facility] Last Admin: 01/04/18 10:18 Dose: Not Given Tiotropium [place] (Spiriva) 18 mcg INH DAILY [facility] Last Admin: 01/05/18 10:27 Dose: 18 mcg Venlafaxine HCl (Effexor Xr) 75 mg PO DAILY [facility] Last Admin: 01/05/18 10:27 Dose: 75 mg Physical Exam - Constitutional Appears: Non-toxic, No Acute Distress - Head Exam Head Exam: ATRAUMATIC, NORMOCEPHALIC - Eye Exam Eye Exam: EOMI, PERRL. absent: Scleral icterus Pupil Exam: PERRL. absent: Miosis, Mydriatic - ENT Exam ENT Exam: Mucous Membranes Moist, Normal Oropharynx - Neck Exam Neck exam: Positive for: Normal Inspection - Respiratory Exam Respiratory Exam: Clear to Auscultation Bilateral. absent: Rales, Rhonchi, Wheezes - Cardiovascular Exam Cardiovascular Exam: RRR, +S1, +S2. absent: Gallop, JVD, Rubs - GI/Abdominal Exam GI & Abdominal Exam: Normal Bowel Sounds, Soft. absent: Distended, Firm, Guarding, Organomegaly, Rebound, Rigid, Tenderness - Extremities Exam Extremities exam: Positive for: normal inspection. Negative for: pedal edema - Neurological Exam Neurological exam: Alert - Psychiatric Exam Psychiatric exam: Normal Affect, Normal Mood - Skin Skin Exam: Dry, Intact, Normal Color, Warm Results - Vital Signs Recent Vital Signs: Last Vital Signs Temp 98.0 F 01/06/18 06:00 Pulse 71 01/06/18 06:00 Resp 20 01/06/18 06:00 BP 142/74 01/06/18 06:00 Pulse Ox 95 01/06/18 06:00 - Labs Result Diagrams: 01/06/18 06:45 01/06/18 06:45 Labs: Laboratory Results - last 24 hr 01/05/18 01/06/18 01/06/18 07:00 06:45 06:45 WBC 11.3 H RBC 3.76 Hgb 10.1 L Hct 32.3 L MCV 85.9 MCH 26.9 MCHC 31.3 RDW 14.7 H Plt Count 401 MPV 9.1 Gran % 61.6 Lymph % (Auto) 23.2 [place] % (Auto) 5.1 Eos % (Auto) 8.9 H Baso % (Auto) 1.2 Gran # 6.96 H Lymph # (Auto) 2.6 [place] # (Auto) 0.6 Eos # (Auto) 1.0 H Baso # (Auto) 0.13 Sodium 143 Potassium 3.7 Chloride 108 H Carbon Dioxide 26 Anion Gap 12 BUN 43 H Creatinine 1.9 H Est GFR ( Amer) 42 Est GFR (Non-Af Amer) 34 Random Glucose 90 Calcium 8.3 L Phosphorus 4.5 Magnesium 1.9 Ferritin 1610.0 Total Bilirubin 0.5 AST 904 H D ALT 1551 H Alkaline Phosphatase 127 H Total Protein 6.2 Albumin 3.0 Globulin 3.2 Albumin/Globulin Ratio 0.9 L Digoxin Acetaminophen 01/06/18 01/06/18 06:45 06:45 WBC RBC Hgb Hct MCV MCH MCHC RDW Plt Count MPV Gran % Lymph % (Auto) [place] % (Auto) Eos % (Auto) Baso % (Auto) Gran # Lymph # (Auto) [place] # (Auto) Eos # (Auto) Baso # (Auto) Sodium Potassium Chloride Carbon Dioxide Anion Gap BUN Creatinine Est GFR ( Amer) Est GFR (Non-Af Amer) Random Glucose Calcium Phosphorus Magnesium Ferritin Total Bilirubin AST ALT Alkaline Phosphatase Total Protein Albumin Globulin Albumin/Globulin Ratio Digoxin 1.0 Acetaminophen < 10.0 L Assessment & Plan - Assessment and Plan (Free Text) Assessment: 77 year old male with PMH of MS, Afib on Xarelto, CAD s/p stent, COPD, Hypothyroidism, and HTN presenting with shortness of breath. Active treatment of CHF decompensation and COPD exacerbation with plan for stress test today. GI consultation for elevated LFTs. Prior history of Amezcua's esophagus with normal esophageal pathology EGD in 2014 and 08/2015 with other findings of two 5mm esophageal nodules (at 34cm and 35cm) with benign squamous epithelium on pathology. Prior colonoscopy 08/2015 showed 5mm ascending tubular adenoma and 1cm descending tubulovillous adenoma with recommended three year surveillance. Plan: -elevated LFTs likely 2/2 ischemia -on 01/03, lactic acidosis during tachycardia with hypotension -normal LFTs on admission, possible congestive hepatopathy component -no signs of drug induced liver injury -LFT trend improving -pending U/S -low suspicion for obstructive pathology or acute cholecysitis -cardiology managing- follow up recommendations -will follow clinical course <Jessica Rosas V - Last Filed: 01/06/18 23:38> Meds - Medications Medications: Current Medications Alprazolam (Xanax) 0.25 mg PO HS PRN; Protocol PRN Reason: Agitation Stop: 01/13/18 08:07 Aspirin (Ecotrin) 81 mg PO DAILY [facility] Last Admin: 01/06/18 12:31 Dose: 81 mg Bupropion HCl (Wellbutrin) 100 mg PO DAILY [facility] Last Admin: 01/06/18 12:31 Dose: 100 mg Digoxin (Digoxin) 0.125 mg PO MoWeFr@1400 [facility] Last Admin: 01/06/18 14:38 Dose: 0.125 mg Furosemide (Lasix) 40 mg IV DAILY [facility] Last Admin: 01/06/18 12:30 Dose: 40 mg Guaifenesin (Robitussin) 100 mg PO Q4H PRN PRN Reason: Cough Last Admin: 01/06/18 18:12 Dose: 100 mg Heparin Sodium (Porcine) (Heparin) 5,000 units SC Q12 [facility]; Protocol Last Admin: 01/05/18 21:58 Dose: 5,000 units Ceftriaxone Sodium (Rocephin 1 Gram Ivpb) 1 gm in 100 mls @ 100 mls/hr IVPB DAILY [facility]; Protocol Last Admin: 01/05/18 10:08 Dose: 100 mls/hr Ipratropium [place] (Atrovent) 0.5 mg IH [id number] [facility] Last Admin: 01/06/18 13:18 Dose: 0.5 mg Levalbuterol HCl (Xopenex) 0.63 mg IH TIDRESP [facility] Last Admin: 01/06/18 20:50 Dose: 0.63 mg Levalbuterol HCl (Xopenex) 0.63 mg IH [id number] PRN PRN Reason: Shortness of Breath Last Admin: 01/05/18 16:23 Dose: 0.63 mg Levothyroxine Sodium (Synthroid) 175 mcg PO 0600 [facility] Last Admin: 01/06/18 05:59 Dose: Not Given Lisinopril (Zestril) 2.5 mg PO DAILY [facility] Last Admin: 01/06/18 12:30 Dose: 2.5 mg Metoprolol Tartrate (Lopressor) 25 mg PO BID [facility] Last Admin: 01/06/18 18:11 Dose: 25 mg Mirtazapine (Remeron) 15 mg PO HS [facility] Last Admin: 01/06/18 22:18 Dose: 15 mg Montelukast Sodium (Singulair) 10 mg PO HS [facility] Last Admin: 01/06/18 22:18 Dose: 10 mg Arnuity Ellipta 100 (Mcg (Home)) 100 mcg IH DAILY [facility] Last Admin: 01/06/18 10:23 Dose: Not Given Temazepam [Restoril] (30 Mg (Home)) 30 mg PO [facility] Last Admin: 01/06/18 03:23 Dose: Not Given Ondansetron HCl (Zofran Inj) 4 mg IVP Q4H PRN PRN Reason: Nausea/Vomiting Pantoprazole Sodium (Protonix Ec Tab) 40 mg PO ACB [facility] Last Admin: 01/06/18 08:26 Dose: Not Given Polyethylene Glycol (Miralax) 34 gm PO HS [facility] Last Admin: 01/06/18 22:18 Dose: 34 gm Potassium Chloride (K-Dur 20 Meq Er Tab) 20 meq PO DAILY [facility] Last Admin: 01/04/18 10:18 Dose: Not Given Tiotropium [place] (Spiriva) 18 mcg INH DAILY [facility] Last Admin: 01/06/18 12:31 Dose: 18 mcg Venlafaxine HCl (Effexor Xr) 75 mg PO DAILY [facility] Last Admin: 01/06/18 12:31 Dose: 75 mg Results - Vital Signs Recent Vital Signs: Last Vital Signs Temp 98.7 F 01/06/18 18:00 Pulse 59 L 01/06/18 22:00 Resp 19 01/06/18 18:00 BP 142/70 01/06/18 18:11 Pulse Ox 95 01/06/18 06:00 - Labs Result Diagrams: 01/06/18 06:45 01/06/18 06:45 Labs: Laboratory Results - last 24 hr 01/06/18 01/06/18 01/06/18 06:45 06:45 06:45 WBC 11.3 H RBC 3.76 Hgb 10.1 L Hct 32.3 L MCV 85.9 MCH 26.9 MCHC 31.3 RDW 14.7 H Plt Count 401 MPV 9.1 Gran % 61.6 Lymph % (Auto) 23.2 [place] % (Auto) 5.1 Eos % (Auto) 8.9 H Baso % (Auto) 1.2 Gran # 6.96 H Lymph # (Auto) 2.6 [place] # (Auto) 0.6 Eos # (Auto) 1.0 H Baso # (Auto) 0.13 Sodium 143 Potassium 3.7 Chloride 108 H Carbon Dioxide 26 Anion Gap 12 BUN 43 H Creatinine 1.9 H Est GFR ( Amer) 42 Est GFR (Non-Af Amer) 34 Random Glucose 90 Calcium 8.3 L Phosphorus 4.5 Magnesium 1.9 Total Bilirubin 0.5 AST 904 H D ALT 1551 H Alkaline Phosphatase 127 H Total Protein 6.2 Albumin 3.0 Globulin 3.2 Albumin/Globulin Ratio 0.9 L Digoxin 1.0 Acetaminophen Hepatitis A IgM Ab Hep Bs Antigen Hep B Core IgM Ab Hepatitis C Antibody 01/06/18 01/06/18 06:45 06:45 WBC RBC Hgb Hct MCV MCH MCHC RDW Plt Count MPV Gran % Lymph % (Auto) [place] % (Auto) Eos % (Auto) Baso % (Auto) Gran # Lymph # (Auto) [place] # (Auto) Eos # (Auto) Baso # (Auto) Sodium Potassium Chloride Carbon Dioxide Anion Gap BUN Creatinine Est GFR ( Amer) Est GFR (Non-Af Amer) Random Glucose Calcium Phosphorus Magnesium Total Bilirubin AST ALT Alkaline Phosphatase Total Protein Albumin Globulin Albumin/Globulin Ratio Digoxin Acetaminophen < 10.0 L Hepatitis A IgM Ab Negative Hep Bs Antigen Negative Hep B Core IgM Ab Negative Hepatitis C Antibody Negative Attending/Attestation - Attestation I have personally seen and examined this patient.: Yes I have fully participated in the care of the patient.: Yes I have reviewed all pertinent clinical information: Yes Notes (Text): This is an addendum to GI consult report dictated by the GI Fellow.The patient was seen and examined earlier. Medical records, lab studies, imagings were reviewed. Last 24 hours events reviewed. Agreed with the above treatment plan as outlined in GI Fellow 's notes with the addition of the following 01/06/18 23:37
[2018-01-06 12:30] LABS: HEPATITIS B SURFACE AG Negative (NEGATIVE)
[2018-01-06] MEDS: Venlafaxine 75 mg ER Cap PO SCH (12:31)
[2018-01-06] MEDS: Tiotropium 18 mcg Cap For Inhalation INH SCH (12:31)
[2018-01-06 12:36] LABS: HEPATITIS A IGM NEGATIVE (NEGATIVE); HEPATITIS B CORE AB NEGATIVE (NEGATIVE)
[2018-01-06 12:47] LABS: HEPATITIS C ANTIBODY NEGATIVE (NEGATIVE)
--- NOTE | 2018-01-06 12:59 | US ---
Date of service: 01/06/2018 HISTORY: elevated LFT COMPARISON: None. TECHNIQUE: Sonographic evaluation of the right upper quadrant of the abdomen. FINDINGS: LIVER: Measures 19 cm in length. Normal echogenicity of the liver parenchyma. No mass. No intrahepatic bile duct dilatation. GALLBLADDER: Gallstones without wall thickening or pericholecystic fluid. COMMON BILE DUCT: Measures mm. No stones. No dilatation. PANCREAS: Unremarkable as visualized. No mass. No ductal dilatation. RIGHT KIDNEY: Measures cm in length. Normal echogenicity. No calculus, mass, or hydronephrosis. AORTA: No aneurysmal dilatation. IVC: Unremarkable. OTHER FINDINGS: None . IMPRESSION: Hepatomegaly. Cholelithiasis.
[2018-01-06 14:39] VITALS: PULSE 67
--- NOTE | 2018-01-06 15:42 | PN ---
DATE: 01/06/2018 REASON FOR CONSULTATION: Followup shortness of breath, rule out coronary artery disease with atrial fibrillation, worsening renal insufficiency, worsening LFTs, Xarelto is on hold for a stress test today. This note is in addition to dictated by nurse practitioner Kellie Rojas. The patient is going for a stress test today. Further recommendations after the stress test, will follow with you. The patient also going for ultrasound of the abdomen also because of the worsening LFTs on admission borderline positive indeterminate range. Eco shows the ejection fraction 55% on 10/2017. Further recommendation of the stress test will order digoxin level today because the patient was on digoxin 0.25 and digoxin level is 1. We changed that because of worsening of renal insufficiency, we will change the digoxin to Saturday, Saturday and Saturday. The renal function is trending down creatinine today is 1.9, maximum was 2.4. LFTs also trending, yesterday was 2234, today is 904. We will repeat blood workup in the morning. We will follow with you. Potassium is 3.7. We will give 20 of K-Dur. The patient is off Xarelto. Thank you Dr. Wall for providing the opportunity in taking care of the patient Spenser Elizalde. Valeria Hoffmann MD
--- NOTE | 2018-01-06 16:12 | CARD ---
APPROVED REPORT Date of service: 01/06/2018 Protocol: LEXISCAN Test Type: Lexiscan Sestamibi Stress Test Attending Physician: Dr. Valeria Hoffmann Referring Physician: Dr. Camp Indications: Palpitations Height:5 ft 6 in Weight:170lbs Medications: Tylenol, Duoneb, Aspirin,Wellbutrin, Rocephin,Digoxin, Lasix, Robitussin Synthroid,Zestril,Lopressor,Remeron Singulair, Ellipta, Restoril, Zofran Percocet, Protonix, Miralax, K Dur, Xarelto, Spiriva, Effexor XR, Xanax Medical History: 77 year old male with past history of COPD, angina, CHF,hypothyroid,GERD,Hernia repair,arthritis,MS, Lung cancer, stents. Target HR: 142 bpm Resting ECG: RSR. RBBB. VT Prolonged. Resting Heart Rate: 81 bpm Resting Blood Pressure: 142/70mmHg Submaximum (85%): 121 bpm PROCEDURE Pharmacologic stress testing was performed using 0.4mg per 5ml of regadenoson given intravenously over 7-10 seconds. Reversal agent aminophyline 50 mg, given intravenously for Dyspnea. POST EXERCISE Reason for Termination: Protocol completed Target HR: No Max HR: 78 bpm 58% of Maximum Predicted HR: 142 bpm Exercise duration: 00:38 min:sec, 0 Stage Exercise capacity: 1.0METs Max Blood Pressure: 142/70mmHg Blood Pressure response to exercise: resting hypertension - appropriate response Heart Rate response to exercise: appropriate Chest Pain: No, none Angina index: 0 Arrhythmia: Yes, Occasional PVCs. ST Change: No, none Deviation: 0 mm INTERPRETATION Stress EKG Conclusion: IV LEXISCAN NUCLEAR STRESS TEST NEGATIVE FOR CHEST PAIN AND NEGATIVE FOR ST-T CHANGES. NUCLEAR SCAN REPORT TO FOLLOW. Signed by Valeria Hoffmann Electronically Approved: 01/06/2018 11:04:48 EXAM: Myocardial Perfusion REST/STRESS Stress Test Type: Pharmacologic Imaging Protocol The imaging protocol used to acquire images was Rest Tc-99m/stress Tc-99m 1 day Rest Spect myocardial perfusion imaging was performed in supine position 50 minutes following the injection of 10.9 mCi of Tc-99 Myoview. At peak stress, the patient was injected intravenously with 30.8mCi of Tc-99 tetrofosmin after an infusion time of 0 minutes and 10 seconds. Gated Stress Spect was performed 60 minutes after intravenous Tc-99 Myoview injection. The images were gated to evaluate regional wall motion and calculate ventricular ejection fraction.Images were reconstructed using backfilter projection method in short horizontal and verticle long axis. Spect slices were generated. LV Perfusion The quality of the study is good. The left ventricle is moderately enlarged in size. The right ventricle is unremarkable. The lung uptake is normal. The distribution of tracer reveals an area of moderately to severely decreased perfusion involving distal anteroseptal, apical and distal inferior kang on the stress study. The remainder of the LV myocardium is unremarkable. The rest myocardial perfusion study shows no significant improvement of the defects. Wall Motion Wall motion study shows diffuse hypokinesis of the left ventricle. LVEF =32%. Conclusion 1. Abnormal SPECT myocardial perfusion study. 2. Fixed, distal anteroseptal, apical and distal inferior defects are suggestive of myocardial injury/infarct. 3. Moderate LV dysfunction with diffuse hypokinesis.
[2018-01-06] MEDS: POLYETHYLENE GLYCOL 3350 17 GM/Dose PACKET PO SCH (22:18)
[2018-01-07 00:56] VITALS: RESP 20
--- NOTE | 2018-01-07 05:59 | CP.PCM.PN ---
Subjective - Date & Time of Evaluation Date of Evaluation: 01/07/18 Time of Evaluation: 06:40 - Subjective Subjective: Lying in bed,awake, alert, no distress, feels okay Reason for consultation and follow up:Cardiac evaluation of shortness of breath, history of coronary artery disease post stent, history of atrial fibrillation Seen and examined by me and Dr. Hoffmann Objective - Vital Signs/Intake and Output Vital Signs (last 24 hours): Temp Pulse Resp BP Pulse Ox 98.2 F 75 20 137/71 95 01/07/18 00:01 01/07/18 05:22 01/07/18 00:01 01/07/18 00:01 01/06/18 06:00 Intake and Output: 01/06/18 01/07/18 18:59 06:59 Intake Total 597 Output Total 1776 Balance -1179 - Medications Medications: Current Medications Alprazolam (Xanax) 0.25 mg PO HS PRN; Protocol PRN Reason: Agitation Stop: 01/13/18 08:07 Aspirin (Ecotrin) 81 mg PO DAILY [facility] Last Admin: 01/06/18 12:31 Dose: 81 mg Bupropion HCl (Wellbutrin) 100 mg PO DAILY [facility] Last Admin: 01/06/18 12:31 Dose: 100 mg Digoxin (Digoxin) 0.125 mg PO MoWeFr@1400 [facility] Last Admin: 01/06/18 14:38 Dose: 0.125 mg Furosemide (Lasix) 40 mg IV DAILY [facility] Last Admin: 01/06/18 12:30 Dose: 40 mg Guaifenesin (Robitussin) 100 mg PO Q4H PRN PRN Reason: Cough Last Admin: 01/06/18 18:12 Dose: 100 mg Heparin Sodium (Porcine) (Heparin) 5,000 units SC Q12 [facility]; Protocol Last Admin: 01/05/18 21:58 Dose: 5,000 units Ceftriaxone Sodium (Rocephin 1 Gram Ivpb) 1 gm in 100 mls @ 100 mls/hr IVPB DAILY [facility]; Protocol Last Admin: 01/05/18 10:08 Dose: 100 mls/hr Ipratropium [place] (Atrovent) 0.5 mg IH [id number] [facility] Last Admin: 01/06/18 13:18 Dose: 0.5 mg Levalbuterol HCl (Xopenex) 0.63 mg IH TIDRESP [facility] Last Admin: 01/06/18 20:50 Dose: 0.63 mg Levalbuterol HCl (Xopenex) 0.63 mg IH [id number] PRN PRN Reason: Shortness of Breath Last Admin: 01/05/18 16:23 Dose: 0.63 mg Levothyroxine Sodium (Synthroid) 175 mcg PO 0600 [facility] Last Admin: 01/06/18 05:59 Dose: Not Given Lisinopril (Zestril) 2.5 mg PO DAILY [facility] Last Admin: 01/06/18 12:30 Dose: 2.5 mg Metoprolol Tartrate (Lopressor) 25 mg PO BID [facility] Last Admin: 01/06/18 18:11 Dose: 25 mg Mirtazapine (Remeron) 15 mg PO HS [facility] Last Admin: 01/06/18 22:18 Dose: 15 mg Montelukast Sodium (Singulair) 10 mg PO HS [facility] Last Admin: 01/06/18 22:18 Dose: 10 mg Arnuity Ellipta 100 (Mcg (Home)) 100 mcg IH DAILY [facility] Last Admin: 01/06/18 10:23 Dose: Not Given Temazepam [Restoril] (30 Mg (Home)) 30 mg PO HS [facility] Last Admin: 01/06/18 22:00 Dose: Not Given Ondansetron HCl (Zofran Inj) 4 mg IVP Q4H PRN PRN Reason: Nausea/Vomiting Pantoprazole Sodium (Protonix Ec Tab) 40 mg PO ACB [facility] Last Admin: 01/06/18 08:26 Dose: Not Given Polyethylene Glycol (Miralax) 34 gm PO HS [facility] Last Admin: 01/06/18 22:18 Dose: 34 gm Potassium Chloride (K-Dur 20 Meq Er Tab) 20 meq PO DAILY [facility] Last Admin: 01/04/18 10:18 Dose: Not Given Tiotropium [place] (Spiriva) 18 mcg INH DAILY [facility] Last Admin: 01/06/18 12:31 Dose: 18 mcg Venlafaxine HCl (Effexor Xr) 75 mg PO DAILY [facility] Last Admin: 01/06/18 12:31 Dose: 75 mg - Labs Labs: 01/06/18 06:45 01/06/18 06:45 PT 15.8 SECONDS (9.4-12.5) H 01/02/18 14:25 INR 1.38 01/02/18 14:25 APTT 34.7 Seconds (25.1-36.5) 01/02/18 14:25 - Constitutional Appears: Non-toxic, No Acute Distress - Head Exam Head Exam: NORMAL INSPECTION, NORMOCEPHALIC - Eye Exam Eye Exam: Normal appearance Pupil Exam: NORMAL ACCOMODATION - ENT Exam ENT Exam: Mucous Membranes Moist, Normal Exam - Respiratory Exam Respiratory Exam: Clear to Ausculation Bilateral, NORMAL BREATHING PATTERN - Cardiovascular Exam Cardiovascular Exam: REGULAR RHYTHM, +S1, +S2 Additional comments: Telemetry NSR 70's - GI/Abdominal Exam GI & Abdominal Exam: Soft, Normal Bowel Sounds - Extremities Exam Extremities Exam: Full ROM, Normal Capillary Refill - Neurological Exam Neurological Exam: Alert, Awake - Psychiatric Exam Psychiatric exam: Normal Affect, Normal Mood - Skin Skin Exam: Dry, Normal Color, Warm Assessment and Plan - Assessment and Plan (Free Text) Assessment: A 77 yo male who came in to the ER due to worsening cough and shortness of breath. History of hypertension, hyperlipidemia,hypothyroidism, multiple sclerosis, COPD, coronary artery disease post stent [address] Lopez. He was scheduled to have stress test as out patient. Initial chest X ray showed congestive heart failure. Borderline troponin positive intdeterminate range but denies cehst pain. 10/2017 ECHO showed LVEF of 55%. Stress test done yesterday. Plan: Stress test done-Abnormal result, Fixed, distal anteroseptal apical and distal inferior defects, are suggestive of myocardial injury/infarct. Moderate LV dysfunction with diffuse hypokinesis. Will treat medically Denies chest pain or shortness of breath Heart rate controlled Blood pressure controlled On ASA 81 mg daily,Wellbutrin 100 mg daily,Digoxin 0.125 mg daily, Lasix 40 mg daily, Synthroid 175 mcg daily,Lisinopril 2.5 mg daily,Lopressor 25 mg BID,Kdur 20 meq daily. Digoxin level WNL Continue current treatment Continue current medications GI work up in progress for elevated LFT's Will follow up Chart reviewed Plan and treatment discussed with Dr. Hoffmann
[2018-01-07] MEDS: Levothyroxine 175 MCG TAB PO SCH (06:22)
[2018-01-07 07:04] VITALS: O2SAT 97
[2018-01-07 07:10] LABS: BASO # 0.12 K/mm3 (0.0-2.0); EOS # 0.9 (0.0-0.7); EOS % 7.9 % (1.5-5.0); GRAN # 7.06 (1.4-6.5); HEMOGLOBIN 10.5 g/dL (14.0-18.0); LYMPH # 2.7 (1.2-3.4); LYMPH % 22.9 % (22.0-35.0); MEAN CELL VOLUME 86.1 fl (80.0-105.0); MEAN CORPUSCULAR HEMOGLOBIN 26.1 pg (25.0-35.0); MEAN CORPUSCULAR HGB CONC 30.3 g/dl (31.0-37.0); MEAN PLATELET VOLUME 9.2 fl (7.0-11.0); MONO % 8.2 % (1.0-6.0); PLATELET COUNT 427 10^3/uL (120.0-450.0); RBC 4.03 10^6/uL (3.5-6.1); RED CELL DISTRIBUTION WIDTH 14.6 % (11.5-14.5); WHITE BLOOD COUNT 11.8 10^3/uL (4.5-11.0)
[2018-01-07 07:15] LABS: ALBUMIN 3.1 g/dL (3.0-4.8); CALCIUM 8.8 mg/dL (8.4-10.5)
--- NOTE | 2018-01-07 07:18 | CP.PCM.PN ---
Objective - Vital Signs/Intake and Output Vital Signs (last 24 hours): Temp Pulse Resp BP Pulse Ox 98.4 F 60 20 128/74 97 01/07/18 06:00 01/07/18 06:00 01/07/18 06:00 01/07/18 06:00 01/07/18 06:00 Intake and Output: 01/07/18 01/07/18 06:59 18:59 Intake Total 597 Output Total 1776 Balance -1179 - Medications Medications: Current Medications Alprazolam (Xanax) 0.25 mg PO HS PRN; Protocol PRN Reason: Agitation Stop: 01/13/18 08:07 Aspirin (Ecotrin) 81 mg PO DAILY [facility] Last Admin: 01/06/18 12:31 Dose: 81 mg Bupropion HCl (Wellbutrin) 100 mg PO DAILY [facility] Last Admin: 01/06/18 12:31 Dose: 100 mg Digoxin (Digoxin) 0.125 mg PO MoWeFr@1400 [facility] Last Admin: 01/06/18 14:38 Dose: 0.125 mg Furosemide (Lasix) 40 mg IV DAILY [facility] Last Admin: 01/06/18 12:30 Dose: 40 mg Guaifenesin (Robitussin) 100 mg PO Q4H PRN PRN Reason: Cough Last Admin: 01/06/18 18:12 Dose: 100 mg Heparin Sodium (Porcine) (Heparin) 5,000 units SC Q12 [facility]; Protocol Last Admin: 01/05/18 21:58 Dose: 5,000 units Ceftriaxone Sodium (Rocephin 1 Gram Ivpb) 1 gm in 100 mls @ 100 mls/hr IVPB DAILY [facility]; Protocol Last Admin: 01/05/18 10:08 Dose: 100 mls/hr Ipratropium [place] (Atrovent) 0.5 mg IH [id number] [facility] Last Admin: 01/06/18 13:18 Dose: 0.5 mg Levalbuterol HCl (Xopenex) 0.63 mg IH TIDRESP [facility] Last Admin: 01/06/18 20:50 Dose: 0.63 mg Levalbuterol HCl (Xopenex) 0.63 mg IH [id number] PRN PRN Reason: Shortness of Breath Last Admin: 01/05/18 16:23 Dose: 0.63 mg Levothyroxine Sodium (Synthroid) 175 mcg PO 0600 [facility] Last Admin: 01/07/18 06:22 Dose: 175 mcg Lisinopril (Zestril) 2.5 mg PO DAILY [facility] Last Admin: 01/06/18 12:30 Dose: 2.5 mg Metoprolol Tartrate (Lopressor) 25 mg PO BID [facility] Last Admin: 01/06/18 18:11 Dose: 25 mg Mirtazapine (Remeron) 15 mg PO HS [facility] Last Admin: 01/06/18 22:18 Dose: 15 mg Montelukast Sodium (Singulair) 10 mg PO HS [facility] Last Admin: 01/06/18 22:18 Dose: 10 mg Arnuity Ellipta 100 (Mcg (Home)) 100 mcg IH DAILY [facility] Last Admin: 01/06/18 10:23 Dose: Not Given Temazepam [Restoril] (30 Mg (Home)) 30 mg PO HS [facility] Last Admin: 01/06/18 22:00 Dose: Not Given Ondansetron HCl (Zofran Inj) 4 mg IVP Q4H PRN PRN Reason: Nausea/Vomiting Pantoprazole Sodium (Protonix Ec Tab) 40 mg PO ACB [facility] Last Admin: 01/06/18 08:26 Dose: Not Given Polyethylene Glycol (Miralax) 34 gm PO HS [facility] Last Admin: 01/06/18 22:18 Dose: 34 gm Potassium Chloride (K-Dur 20 Meq Er Tab) 20 meq PO DAILY [facility] Last Admin: 01/04/18 10:18 Dose: Not Given Tiotropium [place] (Spiriva) 18 mcg INH DAILY [facility] Last Admin: 01/06/18 12:31 Dose: 18 mcg Venlafaxine HCl (Effexor Xr) 75 mg PO DAILY [facility] Last Admin: 01/06/18 12:31 Dose: 75 mg - Labs Labs: 01/06/18 06:45 01/07/18 06:30 PT 15.8 SECONDS (9.4-12.5) H 01/02/18 14:25 INR 1.38 01/02/18 14:25 APTT 34.7 Seconds (25.1-36.5) 01/02/18 14:25
[2018-01-07] MEDS: Levalbuterol 0.63 MG/3 ML Inhal Soln UD IH SCH ×2 (07:46→13:24)
[2018-01-07] MEDS: Pantoprazole 40 mg EC Tab PO SCH (08:39)
[2018-01-07] MEDS: Venlafaxine 75 mg ER Cap PO SCH (10:22)
[2018-01-07] MEDS: Tiotropium 18 mcg Cap For Inhalation INH SCH (10:22)
[2018-01-07] MEDS: ARNUITY ELLIPTA 100 MCG IH SCH (10:27)
--- NOTE | 2018-01-07 10:34 | CP.PCM.DIS ---
<Gurdeep Mulligan - Last Filed: 01/07/18 18:57> Provider - Provider Date of Admission: 01/02/18 15:55 Attending physician: Ap Osborne MD Primary care physician: Dr. Negron Consults: Cardio: Shun GI: Ralph Time Spent in preparation of Discharge (in minutes): 35 Diagnosis - Discharge Diagnosis (1) Transaminitis Status: Acute Priority: High (2) CHF (congestive heart failure) Status: Chronic Priority: Medium (3) COPD (chronic obstructive pulmonary disease) Status: Chronic Priority: Medium (4) Elevated troponin Status: Resolved Priority: High Hospital Course - Lab Results Lab Results: Micro Results 01/02/18 14:39 Blood-Venous Blood Culture - Preliminary NO GROWTH AFTER 4 DAYS 01/02/18 14:25 Blood-Venous Blood Culture - Preliminary NO GROWTH AFTER 4 DAYS 01/02/18 16:55 Urine Urine Culture - Final No Growth (<1,000 CFU/ML) Most Recent Lab Values WBC 11.8 10^3/uL (4.5-11.0) H 01/07/18 06:30 RBC 4.03 10^6/uL (3.5-6.1) 01/07/18 06:30 Hgb 10.5 g/dL (14.0-18.0) L 01/07/18 06:30 Hct 34.7 % (42.0-52.0) L 01/07/18 06:30 MCV 86.1 fl (80.0-105.0) 01/07/18 06:30 MCH 26.1 pg (25.0-35.0) 01/07/18 06:30 MCHC 30.3 g/dl (31.0-37.0) L 01/07/18 06:30 RDW 14.6 % (11.5-14.5) H 01/07/18 06:30 Plt Count 427 10^3/uL (120.0-450.0) 01/07/18 06:30 MPV 9.2 fl (7.0-11.0) 01/07/18 06:30 Gran % 60.0 % (50.0-68.0) 01/07/18 06:30 Lymph % (Auto) 22.9 % (22.0-35.0) 01/07/18 06:30 Gila % (Auto) 8.2 % (1.0-6.0) H 01/07/18 06:30 Eos % (Auto) 7.9 % (1.5-5.0) H 01/07/18 06:30 Baso % (Auto) 1.0 % (0.0-3.0) 01/07/18 06:30 Gran # 7.06 (1.4-6.5) H 01/07/18 06:30 Lymph # (Auto) 2.7 (1.2-3.4) 01/07/18 06:30 [place]ila # (Auto) 1.0 (0.1-0.6) H 01/07/18 06:30 Eos # (Auto) 0.9 (0.0-0.7) H 01/07/18 06:30 Baso # (Auto) 0.12 K/mm3 (0.0-2.0) 01/07/18 06:30 PT 15.8 SECONDS (9.4-12.5) H 01/02/18 14:25 INR 1.38 01/02/18 14:25 APTT 34.7 Seconds (25.1-36.5) 01/02/18 14:25 pCO2 39 mm/Hg (35-45) 01/02/18 16:10 pO2 37 mm/Hg (30-55) 01/02/18 18:00 HCO3 24.2 mmol/L (21-28) 01/02/18 16:10 ABG pH 7.40 (7.35-7.45) 01/02/18 16:10 ABG Total CO2 25.4 mmol.L (22-28) 01/02/18 16:10 ABG O2 Saturation 89.8 % (95-98) L 01/02/18 16:10 ABG O2 Content 12.6 ML/dl (15-23) L 01/02/18 16:10 ABG Base Excess -0.5 mmol/L (-2.0-3.0) 01/02/18 16:10 ABG Hemoglobin 10.3 g/dL (11.7-17.4) L 01/02/18 16:10 ABG Carboxyhemoglobin 2.6 % (0.5-1.5) H 01/02/18 16:10 POC ABG HHb (Measured) 9.9 % (0-5) H 01/02/18 16:10 ABG Methemoglobin 0.8 % (0.0-3.0) 01/02/18 16:10 ABG O2 Capacity 14.0 mL/dl (16-24) L 01/02/18 16:10 VBG pH 7.41 (7.32-7.43) 01/02/18 18:00 VBG pCO2 38.0 (40-60) L 01/02/18 18:00 VBG HCO3 24.1 mmol/l (21-28) 01/02/18 18:00 VBG Total CO2 25.3 mmol.L (22-28) 01/02/18 18:00 VBG O2 Sat (Calc) 75.9 % (40-65) H 01/02/18 18:00 VBG Base Excess -0.3 mmol/L (0.0-2.0) L 01/02/18 18:00 VBG Potassium 3.5 mmol/L (3.6-5.2) L 01/02/18 18:00 Hgb O2 Saturation 86.7 % (95.0-98.0) L 01/02/18 16:10 Sodium 140.0 mmol/L (132-148) 01/02/18 18:00 Chloride 105.0 mmol/L (98-107) 01/02/18 18:00 Glucose 179 mg/dl (75-110) H 01/02/18 18:00 Lactate 2.7 mmol/L (0.7-2.1) H 01/02/18 18:00 FiO2 21.0 % 01/02/18 18:00 Sodium 142 mmol/L (132-148) 01/07/18 06:30 Potassium 3.9 mmol/L (3.6-5.0) 01/07/18 06:30 Chloride 106 mmol/L (98-107) 01/07/18 06:30 Carbon Dioxide 30 mmol/L (21-33) 01/07/18 06:30 Anion Gap 10 (10-20) 01/07/18 06:30 BUN 37 mg/dL (7-21) H 01/07/18 06:30 Creatinine 1.7 mg/dl (0.8-1.5) H 01/07/18 06:30 Est GFR ( Amer) 47 01/07/18 06:30 Est GFR (Non-Af Amer) 39 01/07/18 06:30 Random Glucose 99 mg/dL (70-110) 01/07/18 06:30 Hemoglobin A1c 5.9 % (4.2-6.5) 01/04/18 07:00 Calcium 8.8 mg/dL (8.4-10.5) 01/07/18 06:30 Phosphorus 3.8 mg/dL (2.5-4.5) 01/07/18 06:30 Magnesium 1.8 mg/dL (1.7-2.2) 01/07/18 06:30 Iron 78 ug/dL (45-180) 01/05/18 07:00 TIBC 273 ug/dL (261-462) 01/05/18 07:00 % Saturation 29 % (20-55) 01/05/18 07:00 Ferritin 1610.0 ng/mL 01/05/18 07:00 Total Bilirubin 0.8 mg/dL (0.2-1.3) 01/07/18 06:30 AST 565 U/L (17-59) H D 01/07/18 06:30 ALT 1208 U/L (7-56) H 01/07/18 06:30 Alkaline Phosphatase 125 U/L (38-126) 01/07/18 06:30 Lactate Dehydrogenase 395 U/L (333-699) 01/03/18 11:20 Total Creatine Kinase 61 U/L (35-230) 01/03/18 11:20 Troponin I 0.13 ng/mL H* D 01/03/18 18:10 NT-Pro-B Natriuret Pep 4920 pg/mL (0-450) H 01/02/18 14:25 Total Protein 6.3 g/dL (5.8-8.3) 01/07/18 06:30 Albumin 3.1 g/dL (3.0-4.8) 01/07/18 06:30 Globulin 3.1 gm/dL 01/07/18 06:30 Albumin/Globulin Ratio 1.0 (1.1-1.8) L 01/07/18 06:30 Triglycerides 74 mg/dL (35-160) 01/04/18 07:00 Cholesterol 129 mg/dL (130-200) L 01/04/18 07:00 LDL Cholesterol Direct 88 mg/dL (0-129) 01/04/18 07:00 HDL Cholesterol 30 mg/dL (29-60) 01/04/18 07:00 TSH 3rd Generation 1.03 mIU/mL (0.46-4.68) 01/02/18 14:25 Venous Blood Potassium 3.5 mmol/L (3.6-5.2) L 01/02/18 18:00 Urine Color Yellow (YELLOW) 01/02/18 16:55 Urine Appearance Clear (CLEAR) 01/02/18 16:55 Urine pH 6.0 (4.7-8.0) 01/02/18 16:55 Ur Specific [place] 1.015 (1.005-1.035) 01/02/18 16:55 Urine Protein Negative mg/dL (<30 mg/dL) 01/02/18 16:55 Urine Glucose (UA) Negative mg/dL (NEGATIVE) 01/02/18 16:55 Urine Ketones Negative mg/dL (NEGATIVE) 01/02/18 16:55 Urine Blood Negative (NEGATIVE) 01/02/18 16:55 Urine Nitrate Negative (NEGATIVE) 01/02/18 16:55 Urine Bilirubin Negative (NEGATIVE) 01/02/18 16:55 Urine Urobilinogen 0.2 E.U./dL (<1 E.U./dL) 01/02/18 16:55 Ur Leukocyte Esterase Negative Román/uL (NEGATIVE) 01/02/18 16:55 Digoxin 1.0 ng/mL (0.8-2.0) 01/06/18 06:45 Acetaminophen < 10.0 ug/ml (10.0-20.0) L 01/06/18 06:45 Hepatitis A IgM Ab Negative (NEGATIVE) 01/06/18 06:45 Hep Bs Antigen Negative (NEGATIVE) 01/06/18 06:45 Hep B Core IgM Ab Negative (NEGATIVE) 01/06/18 06:45 Hepatitis C Antibody Negative (NEGATIVE) 01/06/18 06:45 Influenza Typ A,B (EIA) Negative for flu a/b (NEGATIVE) 01/02/18 16:51 - Hospital Course Hospital Course: Discharge Summary for Dr. Osborne Service This is a 77 yo M with PMH of MS, Afib on Xarelto, CAD s/p stent, HTN, COPD, and Hypothyroidism who presented to [facility] with complaints of worsening shortness of breath x2 weeks, productive cough, and fevers (Tmax at home 101F). Over the weekend, he had a hypotensive episode, and demonstrated sharply increasing LFTs and Cr, which have seen been downtrending x2 days. Yesterday, he underwent str ess test which revealed a fixed defect. While here, he was also seen by Cardio and GI. As per Cardio, he needs dose-adjusted Xarelto (pt given script for new dose), and will need to undergo outpatient workup, likely cardiac cath, as he may require AICD placement. As per GI, the LFT elevations were likely 2/2 ischemic insult (likely due to hypotensive episode over the weekend), and appears to be resolving, with no need for acute intervention. Patient was given script for new dose of Xarelto (15mg PO daily), and instructed to fill and take as prescribed. He was also instructed to resume all other home medications as previously prescribed, to follow up with PMD (Dr. Negron) within 1 week of discharge, and to follow up with Cardiology as scheduled. He expressed understanding and agreement. Questions were answered to his satisfaction, and then he was discharged to home. Reviewed and discussed with attending, Dr. Osborne. Discharge Exam - Head Exam Head Exam: NORMAL INSPECTION, NORMOCEPHALIC - Additional Findings Additional findings: - Constitutional Appears: Non-toxic, No Acute Distress - Head Exam Head Exam: ATRAUMATIC, NORMAL INSPECTION, NORMOCEPHALIC - Eye Exam Eye Exam: EOMI, Normal appearance. absent: Conjunctival injection, Scleral icterus Pupil Exam: absent: Irregular, Unequal - ENT Exam ENT Exam: Mucous Membranes Moist - Neck Exam Neck Exam: Full ROM. absent: Normal Inspection - Respiratory Exam Respiratory Exam: Clear to Ausculation Bilateral, NORMAL BREATHING PATTERN. absent: Accessory Muscle Use, Chest Wall Tenderness, Decreased Breath Sounds, Rales, Rhonchi, Wheezes, Respiratory Distress (pt reports shortness of breath, but does not appear short of breath or tachypnic, not in respiratory distress at time of exam) - Cardiovascular Exam Cardiovascular Exam: REGULAR RHYTHM, RRR, +S1, +S2. absent: Bradycardia, Tachycardia, Irregular Rhythm, JVD, +S4 - GI/Abdominal Exam GI & Abdominal Exam: Soft, Normal Bowel Sounds. absent: Distended, Firm, Rigid, Tenderness, Diminished Bowel Sounds, Hyperactive Bowel Sounds, Hypoactive Bowel Sounds - Extremities Exam Extremities Exam: Normal Inspection. absent: Calf Tenderness, Pedal Edema, Tenderness - Neurological Exam Additional comments: awake and alert, following all commands appropriately, moving all extremities spontaneously - Psychiatric Exam Psychiatric exam: Normal Affect, Normal Mood - Skin Skin Exam: Dry, Intact, Normal Color, Warm Discharge Plan - Discharge Medications Prescriptions: Rivaroxaban [Xarelto] 15 mg PO DAILY #30 tab - Follow Up Plan Condition: GUARDED Disposition: HOME/ ROUTINE Instructions: Chronic Obstructive Pulmonary Disease (COPD), Including Emphysema, Heart Failure, Adult (DC), Liver Function Test Additional Instructions: You were seen in the hospital for shortness of breath. You have been prescribed a new dose of your blood thinner medication (Xarelto), please fill the prescription and take as prescribed. Please resume all other home medications as previously prescribed. Please follow up with your PMD (Dr. Negron) within 1 week and with your Java Developer (Dr. Hoffmann) whenever they schedule you. Please present to the nearest Emergency Department if you experience worsening symptoms or newly concerning symptoms. Referrals: Jake Negron MD [Family Provider] - Valeria Hoffmann MD [Staff Provider] - <Ap Osborne - Last Filed: 01/07/18 19:53> Provider - Provider Date of Admission: 01/02/18 15:55 Attending physician: Ap Osborne MD Hospital Course - Lab Results Lab Results: Micro Results 01/02/18 14:39 Blood-Venous Blood Culture - Final NO GROWTH AFTER 5 DAYS 01/02/18 14:25 Blood-Venous Blood Culture - Final NO GROWTH AFTER 5 DAYS 01/02/18 14:25 Blood-Venous Gram Stain - Final TEST NOT PERFORMED 01/02/18 16:55 Urine Urine Culture - Final No Growth (<1,000 CFU/ML) Most Recent Lab Values WBC 11.8 10^3/uL (4.5-11.0) H 01/07/18 06:30 RBC 4.03 10^6/uL (3.5-6.1) 01/07/18 06:30 Hgb 10.5 g/dL (14.0-18.0) L 01/07/18 06:30 Hct 34.7 % (42.0-52.0) L 01/07/18 06:30 MCV 86.1 fl (80.0-105.0) 01/07/18 06:30 MCH 26.1 pg (25.0-35.0) 01/07/18 06:30 MCHC 30.3 g/dl (31.0-37.0) L 01/07/18 06:30 RDW 14.6 % (11.5-14.5) H 01/07/18 06:30 Plt Count 427 10^3/uL (120.0-450.0) 01/07/18 06:30 MPV 9.2 fl (7.0-11.0) 01/07/18 06:30 Gran % 60.0 % (50.0-68.0) 01/07/18 06:30 Lymph % (Auto) 22.9 % (22.0-35.0) 01/07/18 06:30 Gila % (Auto) 8.2 % (1.0-6.0) H 01/07/18 06:30 Eos % (Auto) 7.9 % (1.5-5.0) H 01/07/18 06:30 Baso % (Auto) 1.0 % (0.0-3.0) 01/07/18 06:30 Gran # 7.06 (1.4-6.5) H 01/07/18 06:30 Lymph # (Auto) 2.7 (1.2-3.4) 01/07/18 06:30 Gila # (Auto) 1.0 (0.1-0.6) H 01/07/18 06:30 Eos # (Auto) 0.9 (0.0-0.7) H 01/07/18 06:30 Baso # (Auto) 0.12 K/mm3 (0.0-2.0) 01/07/18 06:30 Neutrophils % (Manual) 61 % (50.0-70.0) 01/07/18 06:30 Lymphocytes % (Manual) 24 % (22.0-35.0) 01/07/18 06:30 Monocytes % (Manual) 7 % (1.0-6.0) H 01/07/18 06:30 Eosinophils % (Manual) 8 % (0.0-3.0) H 01/07/18 06:30 Nucleated RBC % 4 % 01/07/18 06:30 PT 15.5 SECONDS (9.4-12.5) H 01/07/18 10:30 INR 1.34 01/07/18 10:30 APTT 34.7 Seconds (25.1-36.5) 01/02/18 14:25 pCO2 39 mm/Hg (35-45) 01/02/18 16:10 pO2 37 mm/Hg (30-55) 01/02/18 18:00 HCO3 24.2 mmol/L (21-28) 01/02/18 16:10 ABG pH 7.40 (7.35-7.45) 01/02/18 16:10 ABG Total CO2 25.4 mmol.L (22-28) 01/02/18 16:10 ABG O2 Saturation 89.8 % (95-98) L 01/02/18 16:10 ABG O2 Content 12.6 ML/dl (15-23) L 01/02/18 16:10 ABG Base Excess -0.5 mmol/L (-2.0-3.0) 01/02/18 16:10 ABG Hemoglobin 10.3 g/dL (11.7-17.4) L 01/02/18 16:10 ABG Carboxyhemoglobin 2.6 % (0.5-1.5) H 01/02/18 16:10 POC ABG HHb (Measured) 9.9 % (0-5) H 01/02/18 16:10 ABG Methemoglobin 0.8 % (0.0-3.0) 01/02/18 16:10 ABG O2 Capacity 14.0 mL/dl (16-24) L 01/02/18 16:10 VBG pH 7.41 (7.32-7.43) 01/02/18 18:00 VBG pCO2 38.0 (40-60) L 01/02/18 18:00 VBG HCO3 24.1 mmol/l (21-28) 01/02/18 18:00 VBG Total CO2 25.3 mmol.L (22-28) 01/02/18 18:00 VBG O2 Sat (Calc) 75.9 % (40-65) H 01/02/18 18:00 VBG Base Excess -0.3 mmol/L (0.0-2.0) L 01/02/18 18:00 VBG Potassium 3.5 mmol/L (3.6-5.2) L 01/02/18 18:00 Hgb O2 Saturation 86.7 % (95.0-98.0) L 01/02/18 16:10 Sodium 140.0 mmol/L (132-148) 01/02/18 18:00 Chloride 105.0 mmol/L (98-107) 01/02/18 18:00 Glucose 179 mg/dl (75-110) H 01/02/18 18:00 Lactate 2.7 mmol/L (0.7-2.1) H 01/02/18 18:00 FiO2 21.0 % 01/02/18 18:00 Sodium 142 mmol/L (132-148) 01/07/18 06:30 Potassium 3.9 mmol/L (3.6-5.0) 01/07/18 06:30 Chloride 106 mmol/L (98-107) 01/07/18 06:30 Carbon Dioxide 30 mmol/L (21-33) 01/07/18 06:30 Anion Gap 10 (10-20) 01/07/18 06:30 BUN 37 mg/dL (7-21) H 01/07/18 06:30 Creatinine 1.7 mg/dl (0.8-1.5) H 01/07/18 06:30 Est GFR ( Amer) 47 01/07/18 06:30 Est GFR (Non-Af Amer) 39 01/07/18 06:30 Random Glucose 99 mg/dL (70-110) 01/07/18 06:30 Hemoglobin A1c 5.9 % (4.2-6.5) 01/04/18 07:00 Calcium 8.8 mg/dL (8.4-10.5) 01/07/18 06:30 Phosphorus 3.8 mg/dL (2.5-4.5) 01/07/18 06:30 Magnesium 1.8 mg/dL (1.7-2.2) 01/07/18 06:30 Iron 78 ug/dL (45-180) 01/05/18 07:00 TIBC 273 ug/dL (261-462) 01/05/18 07:00 % Saturation 29 % (20-55) 01/05/18 07:00 Ferritin 1610.0 ng/mL 01/05/18 07:00 Total Bilirubin 0.8 mg/dL (0.2-1.3) 01/07/18 06:30 AST 565 U/L (17-59) H D 01/07/18 06:30 ALT 1208 U/L (7-56) H 01/07/18 06:30 Alkaline Phosphatase 125 U/L (38-126) 01/07/18 06:30 Lactate Dehydrogenase 873 U/L (333-699) H 01/07/18 10:30 Total Creatine Kinase 61 U/L (35-230) 01/03/18 11:20 Troponin I 0.13 ng/mL H* D 01/03/18 18:10 NT-Pro-B Natriuret Pep 4920 pg/mL (0-450) H 01/02/18 14:25 Total Protein 6.3 g/dL (5.8-8.3) 01/07/18 06:30 Albumin 3.1 g/dL (3.0-4.8) 01/07/18 06:30 Globulin 3.1 gm/dL 01/07/18 06:30 Albumin/Globulin Ratio 1.0 (1.1-1.8) L 01/07/18 06:30 Triglycerides 74 mg/dL (35-160) 01/04/18 07:00 Cholesterol 129 mg/dL (130-200) L 01/04/18 07:00 LDL Cholesterol Direct 88 mg/dL (0-129) 01/04/18 07:00 HDL Cholesterol 30 mg/dL (29-60) 01/04/18 07:00 TSH 3rd Generation 1.03 mIU/mL (0.46-4.68) 01/02/18 14:25 Venous Blood Potassium 3.5 mmol/L (3.6-5.2) L 01/02/18 18:00 Urine Color Yellow (YELLOW) 01/02/18 16:55 Urine Appearance Clear (CLEAR) 01/02/18 16:55 Urine pH 6.0 (4.7-8.0) 01/02/18 16:55 Ur Specific [place] 1.015 (1.005-1.035) 01/02/18 16:55 Urine Protein Negative mg/dL (<30 mg/dL) 01/02/18 16:55 Urine Glucose (UA) Negative mg/dL (NEGATIVE) 01/02/18 16:55 Urine Ketones Negative mg/dL (NEGATIVE) 01/02/18 16:55 Urine Blood Negative (NEGATIVE) 01/02/18 16:55 Urine Nitrate Negative (NEGATIVE) 01/02/18 16:55 Urine Bilirubin Negative (NEGATIVE) 01/02/18 16:55 Urine Urobilinogen 0.2 E.U./dL (<1 E.U./dL) 01/02/18 16:55 Ur Leukocyte Esterase Negative Román/uL (NEGATIVE) 01/02/18 16:55 Digoxin 1.0 ng/mL (0.8-2.0) 01/06/18 06:45 Acetaminophen < 10.0 ug/ml (10.0-20.0) L 01/06/18 06:45 Hepatitis A IgM Ab Negative (NEGATIVE) 01/06/18 06:45 Hep Bs Antigen Negative (NEGATIVE) 01/06/18 06:45 Hep B Core IgM Ab Negative (NEGATIVE) 01/06/18 06:45 Hepatitis C Antibody Negative (NEGATIVE) 01/06/18 06:45 Influenza Typ A,B (EIA) Negative for flu a/b (NEGATIVE) 01/02/18 16:51 - Hospital Course Hospital Course: Pt seen and examined. I have reviewed the note of the medical office technologist and agree with it. I have discussed the assessment and plan with the resident. I have reviewed the patient's labs and medications. Pt with acute CHF due to systolic dysfunction. He is feeling better. BCx is negative. Pt was A fib on Xarelto and will be increased per Dr Hoffmann. Pt with transaminitis that is improving. US was reviewed. Pt to f/u with PMD.
[2018-01-07 10:49] LABS: EOSINOPHIL 8 % (0.0-3.0); LYMPHOCYTE 24 % (22.0-35.0); MONOCYTE 7 % (1.0-6.0); NEUTROPHIL 61 % (50.0-70.0); NUCLEATED RED BLOOD CELL 4 %
[2018-01-07 10:50] LABS: INR 1.34; PROTHROMBIN TIME 15.5 SECONDS (9.4-12.5)
[2018-01-07 12:29] VITALS: BP 132/72; TEMP 98.2
[2018-01-07 13:37] VITALS: PULSE 78
--- NOTE | 2018-01-07 13:53 | PN ---
DATE: 01/07/2018 REASON FOR CONSULTATION AND FOLLOWUP: Admitted for COPD, history of coronary artery disease, history of possible atrial fibrillation, on Xarelto. This note is in addition to dictated by nurse practitioner. LABORATORY DATA: Today, lab is trending downward. LFT improved from 2000 to 564. Creatinine decreased from 2.4 to 1.7. Stress test shows fixed defect, ejection fraction 32%. IMPRESSION: A 77-year-old male with past medical history significant for paroxysmal atrial fibrillation, admitted with progressing shortness of breath, eventually acute renal failure, as well as, worsening of kidney insufficiency, as well as, liver function tests, now they are trending backward as stress test shows fixed defect. Ejection fraction was 72%, but the echo shows preserved left ventricular function. RECOMMENDATION: Patient needs adjusted dose of Xarelto or preferably Eliquis 2.5 mg p.o. twice daily, discussed with Dr. Cuadra. Needs to get him function to see if it remains below 35, consider cardiac catheterization and AICD placement. We will do that as outpatient. Valeria Hoffmann MD
--- NOTE | 2018-01-07 14:21 | CP.PCM.PN ---
Subjective - Date & Time of Evaluation Date of Evaluation: 01/07/18 Time of Evaluation: 14:18 - Subjective Subjective: Gastroenterology Fellow/PGY6 Progress Note Patient resting comfortably. Tolerating diet. Notes daily bowel movement. A 12- point review of systems negative except for as above. Objective - Vital Signs/Intake and Output Vital Signs (last 24 hours): Temp Pulse Resp BP Pulse Ox 98.2 F 78 20 132/72 97 01/07/18 12:00 01/07/18 12:00 01/07/18 12:00 01/07/18 12:00 01/07/18 06:00 Intake and Output: 01/07/18 01/07/18 06:59 18:59 Intake Total 597 Output Total 1776 Balance -1179 - Medications Medications: Current Medications Alprazolam (Xanax) 0.25 mg PO HS PRN; Protocol PRN Reason: Agitation Stop: 01/13/18 08:07 Aspirin (Ecotrin) 81 mg PO DAILY [facility] Last Admin: 01/07/18 10:21 Dose: 81 mg Bupropion HCl (Wellbutrin) 100 mg PO DAILY [facility] Last Admin: 01/07/18 10:21 Dose: 100 mg Digoxin (Digoxin) 0.125 mg PO [id number]@1400 [facility] Last Admin: 01/06/18 14:38 Dose: 0.125 mg Furosemide (Lasix) 40 mg IV DAILY [facility] Last Admin: 01/07/18 10:28 Dose: Not Given Guaifenesin (Robitussin) 100 mg PO Q4H PRN PRN Reason: Cough Last Admin: 01/06/18 18:12 Dose: 100 mg Heparin Sodium (Porcine) (Heparin) 5,000 units SC Q12 [facility]; Protocol Last Admin: 01/05/18 21:58 Dose: 5,000 units Ceftriaxone Sodium (Rocephin 1 Gram Ivpb) 1 gm in 100 mls @ 100 mls/hr IVPB D AILY [facility]; Protocol Last Admin: 01/05/18 10:08 Dose: 100 mls/hr Ipratropium [place] (Atrovent) 0.5 mg IH [id number] [facility] Last Admin: 01/06/18 13:18 Dose: 0.5 mg Levalbuterol HCl (Xopenex) 0.63 mg IH TIDRESP [facility] Last Admin: 01/07/18 13:24 Dose: 0.63 mg Levalbuterol HCl (Xopenex) 0.63 mg IH [id number] PRN PRN Reason: Shortness of Breath Last Admin: 01/05/18 16:23 Dose: 0.63 mg Levothyroxine Sodium (Synthroid) 175 mcg PO 0600 [facility] Last Admin: 01/07/18 06:22 Dose: 175 mcg Lisinopril (Zestril) 2.5 mg PO DAILY [facility] Last Admin: 01/07/18 10:21 Dose: 2.5 mg Metoprolol Tartrate (Lopressor) 25 mg PO BID [facility] Last Admin: 01/07/18 10:21 Dose: 25 mg Mirtazapine (Remeron) 15 mg PO HS [facility] Last Admin: 01/06/18 22:18 Dose: 15 mg Montelukast Sodium (Singulair) 10 mg PO HS [facility] Last Admin: 01/06/18 22:18 Dose: 10 mg Arnuity Ellipta 100 (Mcg (Home)) 100 mcg IH DAILY [facility] Last Admin: 01/07/18 10:27 Dose: Not Given Temazepam [Restoril] (30 Mg (Home)) 30 mg PO HS [facility] Last Admin: 01/06/18 22:00 Dose: Not Given Ondansetron HCl (Zofran Inj) 4 mg IVP Q4H PRN PRN Reason: Nausea/Vomiting Pantoprazole Sodium (Protonix Ec Tab) 40 mg PO ACB [facility] Last Admin: 01/07/18 08:39 Dose: 40 mg Polyethylene Glycol (Miralax) 34 gm PO HS [facility] Last Admin: 01/06/18 22:18 Dose: 34 gm Potassium Chloride (K-Dur 20 Meq Er Tab) 20 meq PO DAILY [facility] Last Admin: 01/04/18 10:18 Dose: Not Given Tiotropium [place] (Spiriva) 18 mcg INH DAILY [facility] Last Admin: 01/07/18 10:22 Dose: 18 mcg Venlafaxine HCl (Effexor Xr) 75 mg PO DAILY [facility] Last Admin: 01/07/18 10:22 Dose: 75 mg - Labs Labs: 01/07/18 06:30 01/07/18 06:30 PT 15.5 SECONDS (9.4-12.5) H 01/07/18 10:30 INR 1.34 01/07/18 10:30 APTT 34.7 Seconds (25.1-36.5) 01/02/18 14:25 - Constitutional Appears: Non-toxic, No Acute Distress - Head Exam Head Exam: ATRAUMATIC, NORMOCEPHALIC - Eye Exam Eye Exam: EOMI, PERRL. absent: Scleral icterus Pupil Exam: PERRL. absent: Miosis, Mydriatic - ENT Exam ENT Exam: Mucous Membranes Moist, Normal Oropharynx - Neck Exam Neck Exam: Full ROM, Normal Inspection - Respiratory Exam Respiratory Exam: Clear to Ausculation Bilateral. absent: Rales, Rhonchi, Wheezes - Cardiovascular Exam Cardiovascular Exam: RRR, +S1, +S2. absent: Gallop, Rubs - GI/Abdominal Exam GI & Abdominal Exam: Soft, Normal Bowel Sounds. absent: Distended, Firm, Guarding, Rigid, Tenderness, Organomegaly, Rebound - Extremities Exam Extremities Exam: Normal Inspection. absent: Pedal Edema - Neurological Exam Neurological Exam: Alert, Awake - Psychiatric Exam Psychiatric exam: Normal Affect, Normal Mood - Skin Skin Exam: Dry, Intact, Normal Color, Warm Assessment and Plan - Assessment and Plan (Free Text) Assessment: 77 year old male with PMH of MS, Afib on Xarelto, CAD s/p stent, COPD, Hypothyroidism, and HTN presenting with shortness of breath. Active treatment of CHF decompensation and COPD exacerbation with plan for stress test today. GI consultation for elevated LFTs. Prior history of Amezcua's esophagus with normal esophageal pathology EGD in 2014 and 08/2015 with other findings of two 5mm esophageal nodules (at 34cm and 35cm) with benign squamous epithelium on pathology. Prior colonoscopy 08/2015 showed 5mm ascending tubular adenoma and 1cm descending tubulovillous adenoma with recommended three year surveillance. Plan: -elevated LFTs likely 2/2 ischemia in setting of hypotensive episode -differential- drug induced liver injury, low suspicion with LFT pattern -LDH 873 -PT/INR stable -LFT trend improving -U/S-no acute pathology, gallstones, no biliary dilatation -will follow clinical course
== END 2018-01-07 15:13 | disposition home or self-care (01) | DRG 280 ==
LOC: ED 13:50 → ERH 15:55 → 2RSO 17:12
PROVIDERS: ADMIT Internal Medicine Medical Oncology; ATTEND Internal Medicine Nephrology
DX: I13.0 Hypertensive heart and chronic kidney disease with heart failure and stage 1 through stage 4 chronic kidney disease, or unspecified chronic kidney disease (principal); I50.21 Acute systolic (congestive) heart failure; I21.4 Non-ST elevation (NSTEMI) myocardial infarction; J44.1 Chronic obstructive pulmonary disease with (acute) exacerbation; N18.9 Chronic kidney disease, unspecified; G35 Multiple sclerosis; I48.0 Paroxysmal atrial fibrillation; I08.1 Rheumatic disorders of both mitral and tricuspid valves; N40.0 Benign prostatic hyperplasia without lower urinary tract symptoms; E03.9 Hypothyroidism, unspecified; D64.9 Anemia, unspecified; E78.00 Pure hypercholesterolemia, unspecified; K21.9 Gastro-esophageal reflux disease without esophagitis; I25.10 Atherosclerotic heart disease of native coronary artery without angina pectoris; E78.5 Hyperlipidemia, unspecified; D72.829 Elevated white blood cell count, unspecified; Z79.01 Long term (current) use of anticoagulants; Z95.5 Presence of coronary angioplasty implant and graft; Z87.891 Personal history of nicotine dependence

== ENCOUNTER 2018-01-29 09:46 | Inpatient (IN) | payer MEDICARE ==
[2018-01-29 09:51] VITALS: BMI 24.4
--- NOTE | 2018-01-29 09:58 | ED PDOC ---
Arrival/HPI <Seferino Najera - Last Filed: 01/29/18 09:56> - General Historian: Patient - History of Present Illness Narrative History of Present Illness (Text): 01/29/18 10:03 A 77 year old male, whose past medical history includes MS, cholelithiasis, presents to the emergency department with a complaint of abdominal pain. Patient notes that he woke up this morning with the patient to his right upper quadrant which radites towards his back and shoulder. He states that he feels feverish with chills. The patient reports nausea and constipation. Patient has a chronic cough. He is a past smoker (quit in 1983), non- drinker. Patient notes that his living will notes he is DNR. The patient denies headache, dizziness, chest pain, shortness of breath, dyspnea on exertion, vomiting, diarrhea, neck pain, urinary changes, or any other complaint. PMD: Dr. Negron Surgeon: Dr. Choi Time/Duration: Other (This morning) Symptom Onset: Sudden Symptom Course: Unchanged Activities at Onset: Rest, Light Context: Home <Jaiden Caruso - Last Filed: 01/29/18 10:12> - General Chief Complaint: Abdominal Pain Time Seen by Provider: 01/29/18 09:49 Past Medical History - Infectious Disease Hx of Infectious Diseases: None - Tetanus Immunization Tetanus Immunization: Unknown - Cardiac Hx Hypertension: Yes - Pulmonary Hx Chronic Obstructive Pulmonary Disease (COPD): Yes - Neurological Hx Neurological Disorder: Yes Other/Comment: NEUROPATHY - HEENT Hx HEENT Disorder: Yes Other/Comment: [place] - Renal Hx Renal Disorder: Yes - Endocrine/Metabolic Hx Endocrine Disorders: Yes Hx Hypothyroidism: Yes - Hematological/Oncological Hx Blood Disorders: Yes Other/Comment: MS - Integumentary Hx Dermatological Disorder: Yes Other/Comment: dermatitis - Musculoskeletal/Rheumatological Hx Musculoskeletal Disorders: Yes Hx Falls: Yes Other/Comment: R SHOULDER ARTHROPLASTY - Gastrointestinal Hx Gastrointestinal Disorders: Yes Hx Gastroesophageal Reflux: Yes - Genitourinary/Gynecological Hx Genitourinary Disorders: Yes Hx Prostate Problems: Yes (BPH) - Psychiatric Hx Emotional Abuse: No Hx Physical Abuse: No Hx Substance Use: No - Surgical History Hx Cardiac Catheterization: Yes - Anesthesia Hx Anesthesia Reactions: Yes ("BLEEDING FROM AIRWAY USED") Hx Malignant Hyperthermia: No - Suicidal Assessment Feels Threatened In Home Enviroment: No <Seferino Najera - Last Filed: 01/29/18 09:56> - Provider Review Nursing Documentation Reviewed: Yes <Jaiden Caruso - Last Filed: 01/29/18 10:12> Family/Social History Smoking Status: Former Smoker Hx Alcohol Use: Yes (RARELY) Hx Substance Use: No Hx Substance Use Treatment: No <Seferino Najera - Last Filed: 01/29/18 09:56> - Physician Review Nursing Documentation Reviewed: Yes Family/Social History: No Known Family HX <Jaiden Caruso - Last Filed: 01/29/18 10:12> Allergies/Home Meds <Seferino Najera - Last Filed: 01/29/18 09:56> <Jaiden Caruso - Last Filed: 01/29/18 10:12> Allergies/Adverse Reactions: Allergies tape Adverse Reaction (Uncoded 01/29/18 09:51) REDNESS Home Medications: Home Meds Medication Instructions Recorded Confirmed Ascorbic Acid [Vitamin C] 1,000 mg PO QAM 09/13/11 01/02/18 Atorvastatin [Lipitor] 40 mg PO QAM 09/13/11 01/02/18 Mirtazapine [Remeron] 15 mg PO HS 01/20/15 01/02/18 Montelukast [Singulair] 10 mg PO HS 05/12/15 01/02/18 [place]-3 Fatty Acids/Fish Oil 300 mg PO DAILY 05/12/15 01/02/18 [[place] 3 Fish Oil Softgel] Temazepam [Restoril] 30 mg PO HS 05/12/15 01/02/18 Vitamin B Complex [Super B-50 1 tab PO DAILY 05/12/15 01/02/18 Complex] Lisinopril [Zestril] 2.5 mg PO DAILY 07/30/15 01/02/18 Tiotropium [Spiriva] 18 mcg NEB DAILY 07/30/15 01/02/18 Venlafaxine HCl [Venlafaxine HCl 75 mg PO DAILY 07/30/15 01/02/18 ER] buPROPion [Wellbutrin] 100 mg PO DAILY 07/30/15 01/02/18 Multivit-Min/FA/Lycopen/Lutein 1 tab PO DAILY 09/05/15 01/02/18 [Centrum Silver Tablet] Cholecalciferol [Vitamin D 1000 IU] 1 tab PO DAILY 03/17/16 01/02/18 Polyethylene Glycol 3350 [Miralax] 34 mg PO HS 08/28/17 01/02/18 Fluticasone Furoate [Arnuity 100 mcg IH DAILY 11/01/17 01/02/18 Ellipta] Digoxin 0.125 mg PO DAILY 11/06/17 01/02/18 Armodafinil [Nuvigil 250 mg Tab] 250 mg PO BID 01/02/18 01/02/18 Bisacodyl [Fast Relief Laxative] 10 mg RI PRN PRN 01/02/18 01/02/18 Esomeprazole Magnesium [Nexium] 40 mg PO DAILY 01/02/18 01/02/18 Mefloquine [Lariam] 250 mg PO QWK 01/02/18 01/02/18 Oxycodone HCl/Acetaminophen 1 tab PO PRN PRN 01/02/18 01/02/18 [Endocet 7.5-325 mg Tablet] Review of Systems - Physician Review All systems were reviewed & negative as marked: Yes - Review of Systems Constitutional: Fevers Respiratory: Cough. absent: SOB Cardiovascular: absent: Chest Pain, RIOJAS Gastrointestinal: Abdominal Pain, Constipation, Nausea. absent: Diarrhea, Vomiting Genitourinary Male: absent: Urinary Output Changes Musculoskeletal: absent: Neck Pain Neurological: absent: Headache, Dizziness <Jaiden Caruso - Last Filed: 01/29/18 10:12> Physical Exam Vital Signs Pulse Resp BP Pulse Ox 01/29/18 09:52 103 H 19 132/79 80 L <Seferino Najera - Last Filed: 01/29/18 09:56> Vital Signs Reviewed: Yes Vital Signs Pulse Resp BP Pulse Ox 01/29/18 09:52 103 H 19 132/79 80 L Temperature: Afebrile Blood Pressure: Normal Pulse: Tachycardic Respiratory Rate: Normal Appearance: Positive for: Well-Appearing, Non-Toxic, Uncomfortable Pain Distress: None Mental Status: Positive for: Alert and Oriented X 3 - Systems Exam Head: Present: Atraumatic, Normocephalic Pupils: Present: PERRL Extroacular Muscles: Present: EOMI Conjunctiva: Present: Normal Mouth: Present: Moist Mucous Membranes Neck: Present: Normal Range of Motion Respiratory/Chest: Present: Decreased Breath Sounds. No: Respiratory Distress, Accessory Muscle Use Cardiovascular: Present: Regular Rate and Rhythm, Irregular Rhythm (Irregularly irregular). No: Murmurs Abdomen: Present: Tenderness (Moderate tenderness in RUQ.), Guarding (Voluntary guarding.). No: Distention, Peritoneal Signs, Rebound Back: Present: Normal Inspection. No: CVA Tenderness Upper Extremity: Present: Normal Inspection. No: Cyanosis, Edema Lower Extremity: Present: Normal Inspection. No: Edema Neurological: Present: GCS=15, CN II-XII Intact, Speech Normal Skin: Present: Warm, Dry, Pale. No: Rashes Psychiatric: Present: Alert, Oriented x 3, Normal Insight, Normal Concentration <Jaiden Caruso - Last Filed: 01/29/18 10:12> Medical Decision Making ED Course and Treatment: 01/29/18 10:09 Impression: A 77 year old male presents to the emergency department with a complaint of right upper quadrant abdominal pain. Plan: -- EKG -- Chest X-ray -- Abdomen Ultrasound -- Labs -- Blood Culture -- Urinalysis -- Protonix, Toradol, Zofran, Unasyn, IV Fluids -- Reassess and disposition Prior Visits: Notes and results from previous visits were reviewed. Progress Notes: - Lab Interpretations I have reviewed the lab results: Yes - EKG Interpretation Interpreted by ED Physician: Yes Type: 12 lead EKG <Jaiden Caruso - Last Filed: 01/29/18 10:12> - Scribe Statement The provider has reviewed the documentation as recorded by the Val Rhodes Provider Scribe Attestation: All medical record entries made by the Scribe were at my direction and personally dictated by me. I have reviewed the chart and agree that the record accurately reflects my personal performance of the history, physical exam, medical decision making, and the department course for this patient. I have also personally directed, reviewed, and agree with the discharge instructions and disposition. <Jaiden Caruso - Last Filed: 01/29/18 10:12> Disposition/Present on Arrival - Present on Arrival History of DVT/PE: No History of Uncontrolled Diabetes: No Urinary Catheter: No History of Decub. Ulcer: No History Surgical Site Infection Following: None <Seferino Najera - Last Filed: 01/29/18 09:56> <Jaiden Caruso - Last Filed: 01/29/18 10:12> - Disposition Forms: [facility] (Bhutanese)
[2018-01-29] MEDS ORDERED: Pantoprazole 40 MG in Sodium Chloride 0.9% 100 ML IV STA (10:02)
[2018-01-29] MEDS ORDERED: Sodium Chloride 0.9% 500 ML IV ONE (10:08)
--- NOTE | 2018-01-29 10:17 | ED PDOC ---
Arrival/HPI - General Chief Complaint: Abdominal Pain Time Seen by Provider: 01/29/18 09:49 Historian: Patient - History of Present Illness Narrative History of Present Illness (Text): 01/29/18 10:14 A 77 year old male, whose past medical history includes MS, cholelithiasis, presents to the emergency department with a complaint of abdominal pain. Patient notes that he woke up this morning with the discomfort to his right upper quadrant which radiates towards his back and shoulder. He states that he feels feverish with chills. The patient reports nausea and constipation. Patient has a chronic cough. He is a past smoker (quit in 1983), non- drinker. Patient notes that his living will notes he is DNR. The patient denies headache, dizziness, chest pain, shortness of breath, dyspnea on exertion, vomiting, diarrhea, neck pain, urinary changes, or any other complaint. PMD: Dr. Negron Surgeon: Dr. Choi Time/Duration: Other (This morning) Symptom Onset: Sudden Symptom Course: Unchanged Activities at Onset: Rest, Light Context: Home Past Medical History - Provider Review Nursing Documentation Reviewed: Yes - Infectious Disease Hx of Infectious Diseases: None - Tetanus Immunization Tetanus Immunization: Unknown - Cardiac Hx CO: Yes Hx Hypertension: Yes Other/Comment: stents - Pulmonary Hx Bronchitis: Yes Hx Chronic Obstructive Pulmonary Disease (COPD): Yes Hx Pneumonia: Yes (mrsa) Hx Sleep Apnea: Yes - Neurological Hx Neurological Disorder: Yes Hx Multiple Sclerosis: Yes Other/Comment: NEUROPATHY - HEENT Hx HEENT Disorder: Yes Other/Comment: [place] - Renal Hx Renal Disorder: Yes - Endocrine/Metabolic Hx Endocrine Disorders: Yes Hx Hypothyroidism: Yes - Hematological/Oncological Hx Blood Disorders: Yes Other/Comment: MS - Integumentary Hx Dermatological Disorder: Yes Other/Comment: dermatitis - Musculoskeletal/Rheumatological Hx Musculoskeletal Disorders: Yes Hx Falls: Yes Other/Comment: R SHOULDER ARTHROPLASTY, mcgill esophagus - Gastrointestinal Hx Gastrointestinal Disorders: Yes Hx Gastroesophageal Reflux: Yes - Genitourinary/Gynecological Hx Genitourinary Disorders: Yes Hx Prostate Problems: Yes (BPH) - Psychiatric Hx Emotional Abuse: No Hx Physical Abuse: No Hx Substance Use: No - Surgical History Hx Appendectomy: Yes Hx Cardiac Catheterization: Yes Other/Comment: laparotomy, rt supraclavicular node removal, coronary artery angiogram [facility], bilateral medial meniscusectomies, rt inguinal herniorraphy, rt elbow repair OR/IF - Anesthesia Hx Anesthesia Reactions: Yes ("BLEEDING FROM AIRWAY USED") Hx Malignant Hyperthermia: No - Suicidal Assessment Feels Threatened In Home Enviroment: No Family/Social History - Physician Review Nursing Documentation Reviewed: Yes Family/Social History: No Known Family HX Smoking Status: Former Smoker Hx Alcohol Use: Yes (RARELY) Frequency of alcohol use: Socially Hx Substance Use: No Hx Substance Use Treatment: No Allergies/Home Meds Allergies/Adverse Reactions: Allergies tape Adverse Reaction (Uncoded 01/29/18 09:51) REDNESS Home Medications: Home Meds Medication Instructions Recorded Confirmed RX: Atorvastatin [Lipitor] 40 mg PO QAM 09/13/11 01/29/18 RX: Mirtazapine [Remeron] 15 mg PO HS 01/20/15 01/29/18 RX: Montelukast [Singulair] 10 mg PO HS 05/12/15 01/29/18 RX: Temazepam [Restoril] 30 mg PO HS 05/12/15 01/29/18 RX: Vitamin B Complex [Super B-50 1 tab PO DAILY 05/12/15 01/29/18 Complex] RX: Lisinopril [Zestril] 2.5 mg PO DAILY 07/30/15 01/29/18 RX: Venlafaxine HCl [Venlafaxine 75 mg PO DAILY 07/30/15 01/29/18 HCl ER] RX: buPROPion [Wellbutrin] 100 mg PO DAILY 07/30/15 01/29/18 RX: Multivit-Min/FA/Lycopen/Lutein 1 tab PO DAILY 09/05/15 01/29/18 [Centrum Silver Tablet] RX: Polyethylene Glycol 3350 34 mg PO HS 08/28/17 01/29/18 [Miralax] RX: Digoxin 0.125 mg PO DAILY 11/06/17 01/29/18 RX: Bisacodyl [Fast Relief 10 mg UT PRN PRN 01/02/18 01/29/18 Laxative] RX: Mefloquine [Lariam] 250 mg PO QWK 01/02/18 01/29/18 Armodafinil [Nuvigil 250 mg Tab] 250 mg PO DAILY 01/29/18 01/29/18 Esomeprazole Magnesium [Nexium] 40 mg PO DAILY 01/29/18 01/29/18 Fluticasone Furoate [Arnuity 100 mcg IH DAILY 01/29/18 01/29/18 Ellipta] Natalizumab [Tysabri] 0 mg IM Q30D 01/29/18 01/29/18 Oxycodone HCl/Acetaminophen 1 tab PO PRN PRN 01/29/18 01/29/18 [Endocet 325 mg-7.5 mg] RX: Levalbuterol [Xopenex] 45 mcg IH QID 01/29/18 01/29/18 Rivaroxaban [Xarelto] 15 mg PO QID 01/29/18 01/29/18 Tiotropium [Spiriva] 18 mcg IH DAILY 01/29/18 01/29/18 Review of Systems - Physician Review All systems were reviewed & negative as marked: Yes - Review of Systems Constitutional: Fevers Respiratory: Cough. absent: SOB Cardiovascular: absent: Chest Pain, RIOJAS Gastrointestinal: Abdominal Pain, Constipation, Nausea. absent: Diarrhea, Vomiting Genitourinary Male: absent: Urinary Output Changes Musculoskeletal: absent: Neck Pain Neurological: absent: Headache, Dizziness Physical Exam Vital Signs Reviewed: Yes Vital Signs Pulse Resp BP Pulse Ox 01/29/18 09:52 103 H 19 132/79 80 L Temperature: Afebrile Blood Pressure: Normal Pulse: Tachycardic Respiratory Rate: Normal Appearance: Positive for: Non-Toxic, Comfortable, Uncomfortable Pain Distress: None Mental Status: Positive for: Alert and Oriented X 3 - Systems Exam Head: Present: Atraumatic, Normocephalic Pupils: Present: PERRL Extroacular Muscles: Present: EOMI Conjunctiva: Present: Normal Mouth: Present: Moist Mucous Membranes Pharnyx: No: ERYTHEMA, EXUDATE, TONSILS ENLARGED Neck: Present: Normal Range of Motion Respiratory/Chest: Present: Good Air Exchange, Decreased Breath Sounds. No: Respiratory Distress, Accessory Muscle Use Cardiovascular: Present: Regular Rate and Rhythm, Irregular Rhythm (Irregularly irregular). No: Murmurs Abdomen: Present: Tenderness (moderate tenderness to RUQ). No: Distention, Peritoneal Signs, Rebound, Guarding (Voluntary guarding) Back: Present: Normal Inspection. No: CVA Tenderness Upper Extremity: Present: Normal Inspection. No: Cyanosis, Edema Lower Extremity: Present: Normal Inspection. No: Edema Neurological: Present: GCS=15, CN II-XII Intact, Speech Normal Skin: Present: Warm, Dry, Pale. No: Rashes Psychiatric: Present: Alert, Oriented x 3, Normal Insight, Normal Concentration Medical Decision Making ED Course and Treatment: Impression: A 77 year old male presents to the emergency department with a complaint of right upper quadrant abdominal pain. Plan: -- EKG -- Chest X-ray -- Abdomen Ultrasound -- Labs -- Blood Culture -- Urinalysis -- Protonix, Toradol, Zofran, Unasyn, IV Fluids -- Reassess and disposition Prior Visits: Notes and results from previous visits were reviewed. Progress Notes: 01/29/18 11:20 EKG shows normal sinus rhythm rate approximately 95 with a primary AV block and a right bundle branch block and no acute ST or T-wave changes. ABDOMEN COMPLETE Signed By: Naga Montesinos MD Date Signed: 01/29/18 1121 IMPRESSION: Multiple gallstones. No evidence of cholecystitis. Chest X-ray Signed By: Naga Montesinos MD Date Signed: 01/29/18 1228 IMPRESSION: Mild vascular and interstitial congestion with a small right effusion. Minimal infiltrate at the right lung base. 01/29/18 14:20 discussed with and [address] Choi. I am not convinced that his pain is from his cholelithiasis. He will need a HIDA. - Lab Interpretations I have reviewed the lab results: Yes - RAD Interpretation Radiology Orders: 01/29/18 10:02 CHEST PORTABLE [RAD] Stat ABDOMEN COMPLETE [US] Stat - EKG Interpretation Interpreted by ED Physician: Yes Type: 12 lead EKG - Medication Orders Current Medication Orders: Pantoprazole Sodium 40 mg/ (Sodium Chloride) 100 mls @ 400 mls/hr IV STAT STA Stop: 01/29/18 10:16 Ampicillin Sodium/Sulbactam (Sodium 3 gm/ Sodium Chloride) 100 mls @ 100 mls/hr IVPB STAT STA; Protocol Stop: 01/29/18 11:04 Sodium Chloride (Sodium Chloride 0.9%) 500 mls @ 500 mls/hr IV ONCE ONE Stop: 01/29/18 11:07 Discontinued Medications Ketorolac Tromethamine (Toradol) 15 mg IVP STAT STA Stop: 01/29/18 10:03 Ondansetron HCl (Zofran Inj) 4 mg IVP STAT STA Stop: 01/29/18 10:03 - Scribe Statement The provider has reviewed the documentation as recorded by the Val Rhodes Provider Davidibanusha Attestation: All medical record entries made by the Scribe were at my direction and personally dictated by me. I have reviewed the chart and agree that the record accurately reflects my personal performance of the history, physical exam, medical decision making, and the department course for this patient. I have also personally directed, reviewed, and agree with the discharge instructions and disposition. Disposition/Present on Arrival - Present on Arrival Any Indicators Present on Arrival: No History of DVT/PE: No History of Uncontrolled Diabetes: No Urinary Catheter: No History of Decub. Ulcer: No History Surgical Site Infection Following: None - Disposition Have Diagnosis and Disposition been Completed?: Yes Diagnosis: Leukocytosis, Anemia, Cholelithiasis, Right upper quadrant abdominal pain Disposition: HOSPITALIZED Disposition Time: 12:15 Patient Plan: Observation Patient Problems: Current Active Problems Problem Status Onset Anemia Acute Cholelithiasis Acute Leukocytosis Acute Right upper quadrant abdominal pain Acute Condition: FAIR
[2018-01-29 11:22] LABS: BASO # 0.03 K/mm3 (0.0-2.0); BASO % 0.2 % (0.0-3.0); EOS % 0.3 % (1.5-5.0); GRAN # 11.82 (1.4-6.5); GRAN % 81.5 % (50.0-68.0); HEMOGLOBIN 10.1 g/dL (14.0-18.0); LYMPH # 1.2 (1.2-3.4); LYMPH % 8.4 % (22.0-35.0); MEAN CELL VOLUME 84.8 fl (80.0-105.0); MEAN CORPUSCULAR HEMOGLOBIN 25.6 pg (25.0-35.0); MEAN CORPUSCULAR HGB CONC 30.1 g/dl (31.0-37.0); MEAN PLATELET VOLUME 9.1 fl (7.0-11.0); MONO # 1.4 (0.1-0.6); MONO % 9.6 % (1.0-6.0); RBC 3.95 10^6/uL (3.5-6.1); RED CELL DISTRIBUTION WIDTH 15.9 % (11.5-14.5); WHITE BLOOD COUNT 14.5 10^3/uL (4.5-11.0)
[2018-01-29 11:24] LABS: VENOUS BLOOD GAS BASE EXCESS 3.7 mmol/L (0.0-2.0); VENOUS BLOOD GAS PO2 50 mm/Hg (30-55); VENOUS BLOOD PH 7.39 (7.32-7.43)
--- NOTE | 2018-01-29 11:25 | US ---
Date of service: 01/29/2018 HISTORY: RUQ COMPARISON: None. TECHNIQUE: Sonographic evaluation of the abdomen. FINDINGS: LIVER: Measures 17.7 cm. Normal echogenicity of the liver parenchyma. No mass. No intrahepatic bile duct dilatation. GALLBLADDER: Multiple gallstones. No evidence of cholecystitis COMMON BILE DUCT: Measures 4.8 mm. No stones. No dilatation. PANCREAS: Unremarkable as visualized. No mass. No ductal dilatation. RIGHT KIDNEY: Measures 10.8 x 5.1 x 5.1cm. Normal echogenicity. No calculus, mass, or hydronephrosis. LEFT KIDNEY: Measures 12.1 x 5.4 x 5.5cm. Normal echogenicity. No calculus, mass, or hydronephrosis. SPLEEN: Normal in size and contour. No mass. 10.0 x 5.5 x 5.3 AORTA: No aneurysmal dilatation. IVC: Unremarkable. OTHER FINDINGS: None. IMPRESSION: Multiple gallstones. No evidence of cholecystitis
[2018-01-29 11:30] LABS: INR 1.56; PARTIAL THROMBOPLASTIN TIME 36.2 Seconds (25.1-36.5); PROTHROMBIN TIME 18.1 SECONDS (9.4-12.5)
[2018-01-29 11:41] LABS: ALBUMIN 3.3 g/dL (3.0-4.8); ALT/SGPT 43 U/L (7-56); AST/SGOT 29 U/L (17-59); BLOOD UREA NITROGEN 20 mg/dL (7-21); CALCIUM 8.8 mg/dL (8.4-10.5); GFR NON-AFRICAN AMERICAN > 60; LIPASE 17 U/L (23-300)
[2018-01-29] MEDS ORDERED: Morphine 4 mg/ml ISec IVP STA ×2 (11:42→12:16)
[2018-01-29 12:05] LABS: TROPONIN I 0.12 ng/mL
--- NOTE | 2018-01-29 12:31 | RAD ---
Date of service: 01/29/2018 HISTORY: ap COMPARISON: 01/02/2018 FINDINGS: LUNGS: Minimal infiltrate at the right lung base PLEURA: Small right pleural effusion CARDIOVASCULAR: No aortic atherosclerotic calcification present. There is mild cardiomegaly there is mild vascular and interstitial congestion. OSSEOUS STRUCTURES: No significant abnormalities. VISUALIZED UPPER ABDOMEN: Normal. OTHER FINDINGS: None. IMPRESSION: Mild vascular and interstitial congestion with a small right effusion. Minimal infiltrate at the right lung base
--- NOTE | 2018-01-29 13:38 | CARD ---
APPROVED REPORT Date of service: 01/29/2018 EKG Measurement Heart [id number] <Conclusion> Sinus rhythm with 1st degree AV block with premature atrial complexes Left axis deviation/LAHB Right bundle branch block Inferior infarct, age undetermined Anteroseptal infarct, age undetermined STTW changes
[2018-01-29] MEDS ORDERED: Digoxin 125 mcg (0.125 mg) Tab PO SCH (14:00)
[2018-01-29] MEDS ORDERED: Levothyroxine 175 MCG TAB PO SCH (14:00)
[2018-01-29 15:49] LABS: URINE APPEARANCE CLEAR (CLEAR); URINE BILIRUBIN NEGATIVE (NEGATIVE); URINE BLOOD NEGATIVE (NEGATIVE); URINE COLOR YELLOW (YELLOW); URINE GLUCOSE (UA) NEGATIVE (NEGATIVE); URINE LEUKOCYTE ESTERASE NEGATIVE Leu/uL (NEGATIVE); URINE PROTEIN 30 mg/dL (<30 mg/dL); URINE UROBILINOGEN 0.2 E.U./dL (<1 E.U./dL)
[2018-01-29 15:56] LABS: URINE CALCIUM OXALATE CRYSTALS MANY /hpf; URINE RBC 0 - 2 /hpf (0-2); URINE WBC NEGATIVE /hpf (0-6)
--- NOTE | 2018-01-29 16:08 | CP.PCM.CON ---
History of Present Illness - History of Present Illness History of Present Illness: Bernard Kraus, PGY1 Surgery Consult Note for Dr. Choi Patient is a 77 y/o M with PMHx HTN, COPD, CHF, CAD (s/p stent), Afib (on xarelto), Hypothyroidism, MS who presented for abdominal pain that started this morning. It is described at RUQ pain with radiation to the back. Patient also endorsed fever and chills. In the ED, Abdominal Ultrasound was done that showed evidence of gallstones. WBC was noted to be 14.5. Vital signs in the ED were stable. Surgery was consulted for gallstones and patient was evaluated in the ED. Patient is resting comfortable in no acute distress. Patient endorses abdominal pain at the RUQ. He denies nausea, vomiting, constipation, numbness and tingling of extremities, dizziness, lightheadedness. Patient was requesting "8 mg morphine and to straight cath himself". On previous hospital admission, patient had evidence of gallstones with biliary dilation. PMHx: HTN, COPD, CHF, CAD (s/p stent), Afib (on xarelto), Hypothyroidism, MS PSHx: appendectomy, Right supra-clavicular node removal, b/l medial meniscusectomies, right inguinal herniorraphy, and right elbow repair OR/IF Allergies: tape Meds: see MAR FHx: non-contributory Review of Systems - Review of Systems All systems: reviewed and no additional remarkable complaints except (as per HPI) Past Patient History - Infectious Disease Hx of Infectious Diseases: None - Tetanus Immunizations Tetanus Immunization: Unknown - Past Medical History & Family History Past Medical History?: Yes - Past Social History Smoking Status: Former Smoker - CARDIAC Hx Heart Attack: Yes Hx Hypertension: Yes Other/Comment: stents - PULMONARY Hx Bronchitis: Yes Hx Chronic Obstructive Pulmonary Disease (COPD): Yes Hx Pneumonia: Yes (mrsa) Hx Sleep Apnea: Yes - NEUROLOGICAL Hx Neurological Disorder: Yes Hx Multiple Sclerosis: Yes Other/Comment: NEUROPATHY - HEENT Hx HEENT Problems: Yes Other/Comment: [place] - RENAL Hx Chronic Kidney Disease: Yes - ENDOCRINE/METABOLIC Hx Endocrine Disorders: Yes Hx Hypothyroidism: Yes - HEMATOLOGICAL/ONCOLOGICAL Hx Blood Disorders: Yes Other/Comment: MS - INTEGUMENTARY Hx Dermatological Problems: Yes Other/Comment: dermatitis - MUSCULOSKELETAL/RHEUMATOLOGICAL Hx Musculoskeletal Disorders: Yes Hx Falls: Yes Other/Comment: R SHOULDER ARTHROPLASTY, mcgill esophagus - GASTROINTESTINAL Hx Gastrointestinal Disorders: Yes Hx Gastroesophageal Reflux: Yes - GENITOURINARY/GYNECOLOGICAL Hx Genitourinary Disorders: Yes Hx Prostate Problems: Yes (BPH) - PSYCHIATRIC Hx Emotional Abuse: No Hx Physical Abuse: No Hx Substance Use: No - SURGICAL HISTORY Hx Appendectomy: Yes Hx Cardiac Catheterization: Yes Other/Comment: laparotomy, rt supraclavicular node removal, coronary artery angiogram [facility], bilateral medial meniscusectomies, rt inguinal herniorraphy, rt elbow repair OR/IF - ANESTHESIA Hx Anesthesia Reactions: Yes ("BLEEDING FROM AIRWAY USED") Hx Malignant Hyperthermia: No Meds Allergies/Adverse Reactions: Allergies Allergy/AdvReac Type Severity Reaction Status Date / Time tape AdvReac REDNESS Uncoded 01/29/18 09:51 - Medications Medications: Current Medications Armodafinil (Nuvigil 250 Mg Tab) 250 mg PO DAILY [facility] Atorvastatin Calcium (Lipitor) 40 mg PO HS [facility] Digoxin (Digoxin) 0.125 mg PO DAILY [facility] Levothyroxine Sodium (Synthroid) 175 mcg PO DAILY [facility] Lisinopril (Zestril) 2.5 mg PO DAILY [facility] Mirtazapine (Remeron) 15 mg PO HS [facility] Tiotropium [place] (Spiriva) 18 mcg IH DAILY [facility] Physical Exam - Head Exam Head Exam: ATRAUMATIC, NORMAL INSPECTION, NORMOCEPHALIC - Respiratory Exam Respiratory Exam: Clear to Auscultation Bilateral, NORMAL BREATHING PATTERN. absent: Chest Wall Tenderness, Rales, Rhonchi, Wheezes - Cardiovascular Exam Cardiovascular Exam: RRR, +S1, +S2 - GI/Abdominal Exam GI & Abdominal Exam: Normal Bowel Sounds, Soft, Tenderness (Mid-epigastric pain ). absent: Distended, Guarding, Hernia, Organomegaly, Rebound - Extremities Exam Extremities exam: Positive for: normal inspection - Back Exam Back exam: NORMAL INSPECTION - Neurological Exam Neurological exam: Alert, CN II-XII Intact, Normal Gait, Oriented x3, Reflexes Normal - Skin Skin Exam: Dry, Intact, Normal Color, Warm Results - Vital Signs Recent Vital Signs: Last Vital Signs Temp 98.2 F 01/29/18 15:39 Pulse 87 01/29/18 15:39 Resp 18 01/29/18 15:39 BP 133/76 12/19/18 15:39 Pulse Ox 94 L 01/29/18 15:39 - Labs Result Diagrams: 01/29/18 11:00 01/29/18 11:00 Labs: Laboratory Results - last 24 hr 01/29/18 01/29/18 01/29/18 11:00 11:00 11:00 WBC 14.5 H D RBC 3.95 Hgb 10.1 L Hct 33.5 L MCV 84.8 MCH 25.6 MCHC 30.1 L RDW 15.9 H Plt Count 318 MPV 9.1 Gran % 81.5 H Lymph % (Auto) 8.4 L [place] % (Auto) 9.6 H Eos % (Auto) 0.3 L Baso % (Auto) 0.2 Gran # 11.82 H Lymph # (Auto) 1.2 [place] # (Auto) 1.4 H Eos # (Auto) 0.0 Baso # (Auto) 0.03 PT 18.1 H INR 1.56 APTT 36.2 pO2 VBG pH VBG pCO2 VBG HCO3 VBG Total CO2 VBG O2 Sat (Calc) VBG Base Excess VBG Potassium Sodium Chloride Glucose Lactate FiO2 Potassium Carbon Dioxide Anion Gap BUN Creatinine Est GFR ( Amer) Est GFR (Non-Af Amer) Random Glucose Calcium Total Bilirubin AST ALT Alkaline Phosphatase Lactate Dehydrogenase Total Creatine Kinase Troponin I Total Protein Albumin Globulin Albumin/Globulin Ratio Lipase Venous Blood Potassium Urine Color Urine Appearance Urine pH Ur Specific [place] Urine Protein Urine Glucose (UA) Urine Ketones Urine Blood Urine Nitrate Urine Bilirubin Urine Urobilinogen Ur Leukocyte Esterase Urine RBC Urine WBC Ur Epithelial Cells Calcium Oxalate Crystal Digoxin 1.3 01/29/18 01/29/18 01/29/18 11:00 11:00 15:38 WBC RBC Hgb Hct MCV MCH MCHC RDW Plt Count MPV Gran % Lymph % (Auto) [place] % (Auto) Eos % (Auto) Baso % (Auto) Gran # Lymph # (Auto) [place] # (Auto) Eos # (Auto) Baso # (Auto) PT INR APTT pO2 50 VBG pH 7.39 VBG pCO2 49.0 VBG HCO3 29.7 H VBG Total CO2 31.2 H VBG O2 Sat (Calc) 86.6 H VBG Base Excess 3.7 H VBG Potassium 3.7 Sodium 141 141.0 Chloride 106 106.0 Glucose 93 Lactate 1.5 FiO2 21.0 Potassium 3.9 Carbon Dioxide 29 Anion Gap 10 BUN 20 Creatinine 1.0 Est GFR ( Amer) > 60 Est GFR (Non-Af Amer) > 60 Random Glucose 96 Calcium 8.8 Total Bilirubin 0.8 AST 29 ALT 43 Alkaline Phosphatase 116 Lactate Dehydrogenase 371 Total Creatine Kinase 34 L Troponin I 0.12 Total Protein 6.8 Albumin 3.3 Globulin 3.5 Albumin/Globulin Ratio 1.0 L Lipase 17 L Venous Blood Potassium 3.7 Urine Color Yellow Urine Appearance Clear Urine pH 6.0 Ur Specific [place] >= 1.030 Urine Protein 30 H Urine Glucose (UA) Negative Urine Ketones Trace H Urine Blood Negative Urine Nitrate Negative Urine Bilirubin Negative Urine Urobilinogen 0.2 Ur Leukocyte Esterase Negative Urine RBC 0 - 2 Urine WBC Negative Ur Epithelial Cells 1 - 3 Calcium Oxalate Crystal Many Digoxin Assessment & Plan - Assessment and Plan (Free Text) Assessment: Patient is a 77 y/o M who presented to [facility] for abdominal pain and was found to have gallstones on Abdominal Ultrasound. Plan: - No surgical intervention at this time - Ultrasound Abdomen: positive for gallstones (chronic) - Gallbladder unlikely source of leukocytosis - further medical management as per primary team Case was discussed and reviewed with Attending Physician, Dr. Choi
[2018-01-29] MEDS: Tiotropium 18 mcg Cap For Inhalation IH SCH ×2 (16:10→19:04)
[2018-01-29] MEDS: Armodafinil 250 mg Tab PO SCH (16:32)
[2018-01-29] MEDS ORDERED: Influenza Vaccine 60 mcg/0.5 mL SYR (4YR UP) IM ONE (18:58)
[2018-01-29] MEDS ORDERED: Pneumococcal 23-Valent Vaccine IM ONE (18:58)
[2018-01-29] MEDS: Morphine 4 mg/ml ISec IVP PRN (19:35)
[2018-01-30] MEDS: Levothyroxine 175 MCG TAB PO SCH (06:03)
[2018-01-30 07:17] LABS: HEMOGLOBIN 9.4 g/dL (14.0-18.0); MEAN CELL VOLUME 84.8 fl (80.0-105.0); MEAN CORPUSCULAR HEMOGLOBIN 25.1 pg (25.0-35.0); MEAN CORPUSCULAR HGB CONC 29.6 g/dl (31.0-37.0); MEAN PLATELET VOLUME 9.2 fl (7.0-11.0); RBC 3.75 10^6/uL (3.5-6.1); WHITE BLOOD COUNT 10.4 10^3/uL (4.5-11.0)
[2018-01-30 07:48] LABS: ALB/GLOB RATIO 0.9 (1.1-1.8); ALBUMIN 2.9 g/dL (3.0-4.8); ALT/SGPT 29 U/L (7-56); AST/SGOT 28 U/L (17-59); BLOOD UREA NITROGEN 22 mg/dL (7-21); CALCIUM 8.6 mg/dL (8.4-10.5); GFR NON-AFRICAN AMERICAN > 60
--- NOTE | 2018-01-30 08:49 | HP ---
DATE OF EXAM: 01/30/2018 HISTORY OF PRESENT ILLNESS: This is a 77-year-old male who is coming into the hospital with complaints of abdominal pain. The patient says that he started having this pain and it was in the right side upper quadrant area. He says he woke up yesterday morning complaining of this pain, it was about 3-4/10. He says nothing made the pain better or worse. The patient does have a history of gallstones. He has no complaints of any nausea or vomiting. No dysuria, frequency. No weakness in the arms or the legs. All other review of symptoms within normal limits. He says he is feeling better this morning. He did receive morphine for pain yesterday. He has a past medical history of hypertension and severe coronary artery disease with stent, AFib on Xarelto, hypothyroidism and multiple sclerosis. He is able to walk. He has no focal or focal deficits in the arms or the legs.. PAST MEDICAL HISTORY: Hypertension, COPD, CHF, chronic, secondary to systolic dysfunction, stable, coronary artery disease status post stent, atrial fibrillation on Xarelto, hypothyroidism, multiple sclerosis, dyslipidemia, bilateral hearing impairment. PAST SURGICAL HISTORY: 1. Bilateral medial meniscus surgery. 2. Right inguinal hernia repair. 3. Right elbow repair by ORIF. ALLERGIES: TO TAPE. SOCIAL HISTORY: He lives at home. He is a former smoker. He occasionally drinks alcohol. He denies drug use. HOME MEDICATIONS: At home, he is on fluticasone, multivitamins, oxycodone, MiraLax, Nexium, Restoril, Singulair, Xarelto, Wellbutrin, venlafaxine, Xopenex, digoxin, atorvastatin, Nuvigil, mirtazapine, Spiriva, Synthroid, Zestril. PHYSICAL EXAMINATION: VITAL SIGNS: The patient has a temperature of 97.6, pulse of 51, blood pressure is 105/62, respirations 18, O2 saturation 94%. Height is 5 feet 7 inches, weight is 156 pounds, BMI is 24.4. GENERAL: The patient lying in bed, uncomfortable, and in no acute distress. HEENT: Atraumatic and normocephalic. Anicteric sclerae. Moist mucosa. [place] conjunctivae. No oral lesions. NECK: No JVD, anterior and posterior adenopathy, thyromegaly, or bruits. CARDIOVASCULAR: S1 and S2 regular. No murmur, rubs, or gallop. LUNGS: Clear to auscultation bilaterally. No wheezes, rales, or rhonchi. ABDOMEN: Bowel sounds are positive. Soft, nontender and nondistended. No hepatosplenomegaly. No rebound and no guarding EXTREMITIES: No cyanosis, clubbing, or edema. NEUROLOGIC: No facial asymmetry. Tongue is midline. No vulva deviation. Power is 5/5 upper extremity and lower extremity. Sensation intact in upper extremity and lower extremity. PSYCHIATRIC: She is awake, alert and oriented x3. No anxiety or depression. She has normal affect. GENITOURINARY: No CVA tenderness. VASCULAR: 2+ pulses in the carotid pulses and pedal pulses. SKIN: No erythema or nodules SPINE: Shows normal curvature. LABORATORY DATA White count of 14.5, repeat is 10.4, hemoglobin 10.1, platelet count is 318. INR is 1.56. Chemistry shows a sodium 141, potassium 3.9, creatinine is 1.0, troponin 0.12. Urine shows ketones are trace. Toxicology shows digoxin 1.3. EKG shows sinus rhythm with a first-degree AV block. There is a right bundle-branch block, nonspecific ST changes. Chest x-ray done shows mild vascular interstitial congestion with small right effusion. Abdominal ultrasound shows multiple gallstones. No evidence of cholecystitis. ASSESSMENT: 1. Abdominal pain secondary to gallstones. 2. Atrial fibrillation, on anticoagulation. 3. Coronary artery disease. 4 Hypothyroidism. 5. Multiple sclerosis. 6. Hypertension. 7. Dyslipidemia. 8. Hearing impairment. 9. Chronic obstructive pulmonary disease. PLAN: The patient is currently on digoxin. He is going to continue on Lipitor for dyslipidemia. He was given morphine for pain. He says he does not have any pain at this point. He was on Remeron for his anxiety. He is on Spiriva for his COPD. The patient is going to be on Synthroid for hypothyroidism. He was given antibiotics in the ER. He is on Zestril for his hypertension. He is on a liquid diet. He is able to tolerate, will advance to a regular diet. There are no plans for surgery. The patient feels well. I did review the notes from the surgical team. Will discharge the patient home. Ap Osborne MD [facility] # [id number]
[2018-01-30] MEDS: Tiotropium 18 mcg Cap For Inhalation IH SCH (09:48)
[2018-01-30] MEDS: Armodafinil 250 mg Tab PO SCH (09:57)
[2018-01-30] MEDS: Albuterol-Ipratrop 3 mg / 0.5 (3 ml) UD IH SCH ×3 (11:29→18:57)
[2018-01-30] MEDS: Digoxin 125 mcg (0.125 mg) Tab PO SCH (13:49)
--- NOTE | 2018-01-30 15:59 | CP.PCM.PN ---
<Cony Rangel - Last Filed: 01/30/18 17:40> Subjective - Date & Time of Evaluation Date of Evaluation: 01/30/18 Time of Evaluation: 15:56 - Subjective Subjective: House doc Note: Called for: chest pain 77 year old male with PMHx HTN, COPD, CHF, CAD (s/p stent), Afib (on xarelto), Hypothyroidism, MS, admitted for epigastric pain/abdominal pain, found to be 2/2 cholelithiasis. Patient started complaining of substernal chest pain for past 2 hours. Patient describes it as sharp pain, rates it 6/10, intermittent, radiating to right upper quadrant. Denies nausea, vomiting, dizziness, palpitations, diaphoresis, fevers, chills. Patient states that the pain began an hour or so after eating, while he was in bed, watching TV. Patient also complains of urinary retention since this morning. VS: T 98.2F, BP 116/64, HR 76, RR14, 98% on 2L NC PE: Neuro: AAOx4 Cardio: irregularly irregular. No tenderness to palpation. resp: Mild right sided basilar crackles, otherwise CTA Extremities: no calf tenderness A/P: - Substernal chest pain - Urinary retention 2/2 cholelithiasis, r/o ACS - EKG shows afib HR 77, RBBB (unchanged from prior EKG) - Electrolytes from AM reviewed. - troponin 0.17, Mg 1.8, phosp 3.2 - repleted Magnesium, gave ASA 325 mg - bladder scan: 450 ml, costa inserted, patient describes relief of pain after costa insertion. - f/u next troponin - Dr Hoffmann consulted. Discussed case with him, will see patient tomorrow AM. - Discussed with PMD Dr Ojeda. Cony Rangel, PGY2 Objective - Vital Signs/Intake and Output Vital Signs (last 24 hours): Temp Pulse Resp BP Pulse Ox 97.6 F 86 18 117/71 94 L 01/30/18 06:00 01/30/18 11:28 01/30/18 06:00 01/30/18 09:48 01/30/18 06:00 Intake and Output: 01/30/18 01/30/18 06:59 18:59 Output Total 200 Balance -200 - Medications Medications: Current Medications Albuterol/Ipratropium (Duoneb 3 Mg/0.5 Mg (3 Ml) Ud) 3 ml IH [id number] [facility] Last Admin: 01/30/18 11:29 Dose: 3 ml Armodafinil (Nuvigil 250 Mg Tab) 250 mg PO DAILY [facility] Last Admin: 01/30/18 09:57 Dose: 250 mg Atorvastatin Calcium (Lipitor) 40 mg PO HS [facility] Last Admin: 01/29/18 22:13 Dose: 40 mg Digoxin (Digoxin) 0.125 mg PO 1400 [facility] Last Admin: 01/30/18 13:49 Dose: 0.125 mg Levothyroxine Sodium (Synthroid) 175 mcg PO 0600 [facility] Last Admin: 01/30/18 06:03 Dose: 175 mcg Lisinopril (Zestril) 2.5 mg PO DAILY [facility] Last Admin: 01/30/18 09:48 Dose: 2.5 mg Mirtazapine (Remeron) 15 mg PO HS [facility] Last Admin: 01/29/18 22:13 Dose: 15 mg Morphine Sulfate (Morphine) 4 mg IVP Q4H PRN PRN Reason: Pain, severe (8-10) Last Admin: 01/29/18 19:35 Dose: 4 mg Rivaroxaban (Xarelto) 20 mg PO DAILY [facility]; Protocol Last Admin: 01/30/18 09:48 Dose: 20 mg Tiotropium [place] (Spiriva) 18 mcg IH DAILY [facility] Last Admin: 01/30/18 09:48 Dose: 18 mcg - Labs Labs: 01/30/18 06:50 01/30/18 06:50 PT 18.1 SECONDS (9.4-12.5) H 01/29/18 11:00 INR 1.56 01/29/18 11:00 APTT 36.2 Seconds (25.1-36.5) 01/29/18 11:00 <Ap Osborne - Last Filed: 01/31/18 10:25> Objective - Vital Signs/Intake and Output Vital Signs (last 24 hours): Temp Pulse Resp BP Pulse Ox 97.9 F 70 18 100/62 95 01/31/18 06:00 01/31/18 09:46 01/31/18 06:00 01/31/18 09:46 01/31/18 06:00 Intake and Output: 01/31/18 01/31/18 06:59 18:59 Intake Total 480 Output Total 500 Balance -20 - Medications Medications: Current Medications Albuterol/Ipratropium (Duoneb 3 Mg/0.5 Mg (3 Ml) Ud) 3 ml IH [id number] [facility] Last Admin: 01/31/18 07:13 Dose: 3 ml Armodafinil (Nuvigil 250 Mg Tab) 250 mg PO DAILY [facility] Last Admin: 01/31/18 09:45 Dose: 250 mg Aspirin (Ecotrin) 81 mg PO DAILY [facility] Last Admin: 01/31/18 09:44 Dose: 81 mg Aspirin (Aspirin) 325 mg PO DAILY [facility] Atorvastatin Calcium (Lipitor) 40 mg PO HS [facility] Last Admin: 01/30/18 22:20 Dose: 40 mg Clopidogrel Bisulfate (Plavix) 75 mg PO DAILY [facility] Digoxin (Digoxin) 0.125 mg PO 1400 [facility] Last Admin: 01/30/18 13:49 Dose: 0.125 mg Levothyroxine Sodium (Synthroid) 175 mcg PO 0600 [facility] Last Admin: 01/31/18 06:55 Dose: 175 mcg Lisinopril (Zestril) 2.5 mg PO DAILY [facility] Last Admin: 01/31/18 09:46 Dose: 2.5 mg Metoprolol Tartrate (Lopressor) 25 mg PO Q12 [facility] Last Admin: 01/31/18 09:44 Dose: 25 mg Mirtazapine (Remeron) 15 mg PO HS [facility] Last Admin: 01/30/18 22:21 Dose: 15 mg Morphine Sulfate (Morphine) 4 mg IVP Q4H PRN PRN Reason: Pain, severe (8-10) Last Admin: 01/30/18 23:34 Dose: 4 mg Rivaroxaban (Xarelto) 20 mg PO DAILY [facility]; Protocol Stop: 01/31/18 23:59 Last Admin: 01/31/18 09:46 Dose: 20 mg Tiotropium [place] (Spiriva) 18 mcg IH DAILY [facility] Last Admin: 01/31/18 09:46 Dose: 18 mcg - Labs Labs: 01/30/18 06:50 01/30/18 06:50 PT 18.1 SECONDS (9.4-12.5) H 01/29/18 11:00 INR 1.56 01/29/18 11:00 APTT 36.2 Seconds (25.1-36.5) 01/29/18 11:00 Assessment and Plan - Assessment and Plan (Free Text) Assessment: Pt seen and examined today. See my note from today. Spoke with resident about case last night and the CP with + trop.
[2018-01-30] MEDS ORDERED: Magnesium Sulfate 1 gm in D5W 1 GM/100 ML BAG IVPB ONE (17:41)
[2018-01-30] MEDS: Morphine 4 mg/ml ISec IVP PRN ×2 (18:38→23:34)
[2018-01-31] MEDS: Albuterol-Ipratrop 3 mg / 0.5 (3 ml) UD IH SCH ×7 (00:04→23:08)
[2018-01-31] MEDS: Levothyroxine 175 MCG TAB PO SCH (06:55)
--- NOTE | 2018-01-31 09:12 | CARD ---
APPROVED REPORT Date of service: 01/30/2018 EKG Measurement Heart [id number] <Conclusion> Atrial fibrillation Left axis deviation Right bundle branch block Inferior infarct, age undetermined STTW changes c/w ischemia
[2018-01-31 09:27] LABS: TROPONIN I 0.15 ng/mL
[2018-01-31] MEDS: Armodafinil 250 mg Tab PO SCH (09:45)
[2018-01-31] MEDS: Tiotropium 18 mcg Cap For Inhalation IH SCH (09:46)
--- NOTE | 2018-01-31 10:13 | CON ---
DATE: 01/31/2018 REASON FOR CONSULTATION: Positive troponin, non-ST segment myocardial infarction, initially admitted for right upper quadrant pain, possibly acute cholecystitis. BRIEF CLINICAL HISTORY: This is a 77-year-old male, with past medical history significant for coronary artery disease status post stent with in the past; history of atrial fibrillation, on Xarelto; hypothyroidism; multiple sclerosis, admitted with gastric pain, abdominal pain, found to be cholelithiasis. The patient also complains one episode of epigastric pain radiating to the chest. Troponin was sent, found to be as a 0.12, repeat was 0.17, 0.17, 0.16. The patient denies any chest pain now. PAST MEDICAL HISTORY: Significant for coronary artery disease status post stent by Dr. Lopez five years ago, but the patient does not want to go to follow with him because of logistic issue. History of hypertension, history of hyperlipidemia, history of multiple sclerosis, COPD, history of AFib, on Xarelto. SOCIAL HISTORY: Quit smoking many years ago. RECENT CARDIAC WORKUP: As follows; the patient had a stress test on 01/06/2018 that revealed abnormal myocardial perfusion study, fixed anteroseptal distal defect suggestive of myocardial infarct, ejection fraction 32%. The patient had an echocardiography done on 10/18/2017 that shows ejection fraction 50%. CURRENT MEDICATIONS: The patient is taking at home; Wellbutrin, B complex, Restoril, Xarelto, Tysabri, multivitamin, Singulair, Zestril, levothyroxine and digoxin, atorvastatin and Nuvigil. ALLERGIES: ALLERGY TO TAPE. REVIEW OF SYSTEMS: As per HPI. PHYSICAL EXAMINATION: As follows; VITAL SIGNS: Temperature afebrile, heart rate 80, and blood pressure 118/66. HEENT: PERRLA. Extraocular muscles intact. NECK: Supple. No carotid bruits or thyromegaly. CHEST: Clear to auscultation. HEART: S1 and S2 regular. ABDOMEN: Soft. Mild tenderness to epigastrium noted. EXTREMITIES: Clubbing and cyanosis negative. LABORATORY DATA: Blood workup as follows; WBC 10.4, hemoglobin 9.9, hematocrit 31.8, and platelet count 300. Chemistry shows sodium 140, potassium 3.9, chloride 106, carbon dioxide 30, anion gap of 22, BUN 9, creatinine 1.1. Troponin 0.12, 0.17, 0.16, 0.16. EKG showed defibrillator 77, right bundle branch block, indeterminate. IMPRESSION: A 77-year-old male with past medical history significant for coronary artery disease status post stent 5 years ago; history of atrial fibrillation; history of hypertension; hyperlipidemia; multiple sclerosis; chronic obstructive pulmonary disease, chronic atrial fibrillation, on Xarelto, last dose yesterday. Admitted with possible acute cholecystitis, cholelithiasis, borderline troponin positive, recent stress test in December decreased LV function. Recent echo shows ejection fraction 50% in October. RECOMMENDATIONS: We will hold Xarelto after today's dose, load with aspirin and Plavix since the patient's Xarelto, we cannot do the cardiac catheterization, semielective, we will schedule on Saturday. Risks, benefits, and alternatives discussed with the patient. The patient agreed to proceed. We will keep the patient here and we will stop Xarelto and start load with the Plavix and possible cardiac catheterization on Saturday. Thank you Dr. Cuadra for providing us the opportunity in taking care of the patient, Tonio Dueñas. Valeria Hoffmann MD
[2018-01-31] MEDS: Digoxin 125 mcg (0.125 mg) Tab PO SCH (13:51)
--- NOTE | 2018-01-31 16:17 | DS ---
HISTORY OF PRESENT ILLNESS: This is a 77-year-old male who had come into the hospital for abdominal pain. The patient was seen by surgery and no acute findings were found. The patient then started having chest pain. He had blood work done that showed troponin that was elevated, Dr. Hoffmann evaluate the patient and the patient has been scheduled for cardiac cath on Saturday which is after the weekend. The patient Does not wish to change the hospital, he is advised against leaving the hospital. He has probable coronary disease and will need intervention. The patient also developing hypertension and had a Girard catheter placed. The patient will have a Girard catheter taken out to see if he is able to urinate on his own. He is currently comfortable. He has no complaints of any headaches or dizziness. No nausea, no vomiting. He is tolerating his diet. He has no chest pain. PHYSICAL EXAMINATION: VITAL SIGNS: Temperature 97.9, pulse of 70, blood pressure 100/62, respirations 18, and O2 saturation 95%. GENERAL: The patient is lying in bed, flat, comfortable. HEENT: No oral lesion. Anicteric sclerae. Moist mucosa. NECK: No JVD, adenopathy, or thyromegaly. CARDIOVASCULAR: S1 and S2, regular. No murmurs, rubs, or gallops. LUNGS: Clear to auscultation bilaterally. No wheeze, rales, or rhonchi. ABDOMEN: Bowel sounds are positive, soft, nontender and nondistended. EXTREMITIES: No cyanosis, clubbing or edema. ASSESSMENT: 1. Abdominal pain secondary to gallstones, resolved. 2. Pbi-AM-uorgodpci myocardial infarction, improved. 3. Atrial fibrillation on anticoagulation. 4. Hypothyroidism. 5. Multiple sclerosis. 6. Hypertension. 7. Dyslipidemia. 8. Hearing impairment. 9. Chronic obstructive pulmonary disease. PLAN: The patient is going to be on aspirin daily. He is on Duoneb for nebulizer treatment. The patient is on Lipitor for dyslipidemia. He is on metoprolol for coronary artery disease. The patient is on morphine for pain. The patient is receiving tiotropium for COPD. The patient is on lisinopril for hypertension. He is on a regular diet. The patient was advised to followup with Dr. Hoffmann for his cardiac issues. I did speak to Dr. Hoffmann and he is willing to be open to scheduling the cardiac cath next week even as outpatient if the patient does not stay in the hospital. The patient was advised that he has been scheduled for 02/06/2018 after [place] for his cardiac cath and he should come back to the hospital if he has symptoms again. He does understand questions were answered. The patient was advised to stay in the hospital, but he may leave AMA. Ap Osborne MD
[2018-01-31] MEDS: Morphine 4 mg/ml ISec IVP PRN (18:14)
[2018-02-01] MEDS: Morphine 4 mg/ml ISec IVP PRN (00:16)
[2018-02-01] MEDS: Albuterol-Ipratrop 3 mg / 0.5 (3 ml) UD IH SCH ×5 (05:02→20:37)
[2018-02-01] MEDS: Levothyroxine 175 MCG TAB PO SCH (05:36)
[2018-02-01] MEDS ORDERED: Oxycodone/Acetaminophen 5/325 mg Tab PO PRN (07:48)
[2018-02-01] MEDS: Tiotropium 18 mcg Cap For Inhalation IH SCH (09:59)
[2018-02-01] MEDS: Armodafinil 250 mg Tab PO SCH (10:01)
--- NOTE | 2018-02-01 12:23 | PN ---
DATE: 02/01/2018 SUBJECTIVE: Patient has no complaints of any chest pain or shortness of breath. No headaches. He states he was able to urinate yesterday after the [place] was taken out. PHYSICAL EXAMINATION: VITAL SIGNS: Temperature 99.4, pulse 81, blood pressure 153/86, and respirations 19. GENERAL: The patient is lying in bed, flat, comfortable. HEENT: No oral lesion. Anicteric sclerae. Moist mucosa. NECK: No JVD, adenopathy, or thyromegaly. CARDIOVASCULAR: S1 and S2, regular. No murmurs, rubs, or gallops. LUNGS: Clear to auscultation bilaterally. No wheeze, rales, or rhonchi. ABDOMEN: Bowel sounds are positive, soft, nontender and nondistended. EXTREMITIES: no cyanosis, clubbing or edema. LABORATORY DATA: Creatinine is 1.1 from 01/30/2018. . ASSESSMENT: 1. [id number] myocardial infarction. 2. Abdominal pain secondary to gallstones, resolved. 3. Atrial fibrillation, on anticoagulation. 4. Hypothyroidism. 5. Multiple sclerosis. 6. Hypertension. 7. Dyslipidemia. 8. Hearing impairment. 9. Chronic obstructive pulmonary disease. PLAN: The patient is currently comfortable. He is on aspirin for his TX. He is on digoxin daily. He is on aspirin daily. The patient is on Lipitor for dyslipidemia. He is on morphine for pain as needed. The patient is on his Nuvigil. He is receiving mirtazapine. The patient is on Plavix. He is on Synthroid for hypothyroidism. He is on Zestril for his hypertension. His anticoagulation is on hold because of the cardiac catheterization that he will need to have done. I will repeat his blood work tomorrow. He will have his morphine discontinued and I will place him on Percocet as needed. He initially wanted to go home, but he was able to be convinced to stay for the cardiac catheterization as it was not safe for him to be discharged. Ap Osborne MD
[2018-02-01] MEDS: Digoxin 125 mcg (0.125 mg) Tab PO SCH (17:15)
[2018-02-02] MEDS: Albuterol-Ipratrop 3 mg / 0.5 (3 ml) UD IH SCH ×7 (01:34→20:56)
[2018-02-02] MEDS: Levothyroxine 175 MCG TAB PO SCH (05:39)
[2018-02-02 07:35] LABS: HEMOGLOBIN 10.5 g/dL (14.0-18.0); MEAN CELL VOLUME 83.9 fl (80.0-105.0); MEAN CORPUSCULAR HEMOGLOBIN 25.2 pg (25.0-35.0); MEAN PLATELET VOLUME 9.6 fl (7.0-11.0); RBC 4.17 10^6/uL (3.5-6.1); RED CELL DISTRIBUTION WIDTH 15.9 % (11.5-14.5)
[2018-02-02 07:44] LABS: ALBUMIN 3.5 g/dL (3.0-4.8); ALT/SGPT 61 U/L (7-56); AST/SGOT 77 U/L (17-59); BLOOD UREA NITROGEN 32 mg/dL (7-21); CALCIUM 9.1 mg/dL (8.4-10.5); GFR NON-AFRICAN AMERICAN 53
[2018-02-02] MEDS: Tiotropium 18 mcg Cap For Inhalation IH SCH (10:18)
[2018-02-02] MEDS: Digoxin 125 mcg (0.125 mg) Tab PO SCH (14:06)
--- NOTE | 2018-02-02 18:30 | PN ---
DATE: 02/02/2018 SUBJECTIVE: The patient has no complaints of any chest pain, no shortness of breath, no headaches or dizziness. The patient is confused overnight focus. He is drowsy. PHYSICAL EXAMINATION VITAL SIGNS: Temperature is 98.5, pulse is 75, blood pressure is 138/79, respirations 20. GENERAL: The patient is lying in bed, flat, comfortable. HEENT: No oral lesion. Anicteric sclerae. Moist mucosa. NECK: No JVD, adenopathy, or thyromegaly. CARDIOVASCULAR: S1 and S2, regular. No murmurs, rubs, or gallops. LUNGS: Clear to auscultation bilaterally. No wheeze, rales, or rhonchi. ABDOMEN: Bowel sounds are positive, soft, nontender and nondistended. EXTREMITIES: no cyanosis, clubbing or edema. LABORATORY DATA: White count of 10, hemoglobin 10.5. Creatinine is 1.3. . ASSESSMENT: 1. Delirium. 2. Non-ST elevation myocardial infarction. 3. Abdominal pain secondary to gallstones. 4. Atrial fibrillation, anticoagulation on hold. 5. Hypothyroidism. 6. Multiple sclerosis. 7. Hypertension. 8. Dyslipidemia. 9. Hearing impairment. 10. Chronic obstructive pulmonary disease. PLAN: The patient is able to move all extremities and no focal deficits are noted. Neurologically, the patient has hearing impairment. He is older and had likely has delirium. The patient is awaiting for cardiac cath to be done tomorrow. He is currently on digoxin. He is going to continue on Lipitor for dyslipidemia. He is on Plavix. I will hold the patient's Nuvigil and Percocet for pain to minimize his confusion. The patient is on Synthroid for hypothyroidism. He is on Lisinopril for hypertension. He is on a regular diet. I will repeat his blood work today. His blood work today is acceptable. His blood cultures have been negative. Ap Osborne MD
[2018-02-03] MEDS: Albuterol-Ipratrop 3 mg / 0.5 (3 ml) UD IH SCH ×6 (01:48→21:06)
[2018-02-03] MEDS: Levothyroxine 175 MCG TAB PO SCH (05:54)
--- NOTE | 2018-02-03 07:06 | CP.PCM.PN ---
Subjective - Date & Time of Evaluation Date of Evaluation: 02/03/18 Time of Evaluation: 06:20 - Subjective Subjective: awake, alert, no distress, denies chest pain Reason for consultation and follow up: Cardiac evaluation of positive troponin, Non ST segment myocardial infarction, admitted for right upper quadrant pain Seen and examined by me and Dr. Hoffmann Objective - Vital Signs/Intake and Output Vital Signs (last 24 hours): Temp Pulse Resp BP Pulse Ox 98.2 F 83 20 151/87 H 94 L 02/02/18 22:00 02/02/18 22:00 02/02/18 22:00 02/02/18 22:00 02/02/18 22:00 - Medications Medications: Current Medications Albuterol/Ipratropium (Duoneb 3 Mg/0.5 Mg (3 Ml) Ud) 3 ml IH [id number] [facility] Last Admin: 02/03/18 01:48 Dose: Not Given Armodafinil (Nuvigil 250 Mg Tab) 250 mg PO DAILY [facility] Last Admin: 02/01/18 10:01 Dose: 250 mg Aspirin (Ecotrin) 81 mg PO DAILY [facility] Last Admin: 02/03/18 06:49 Dose: 81 mg Aspirin (Aspirin) 325 mg PO DAILY [facility] Last Admin: 02/02/18 14:41 Dose: Not Given Atorvastatin Calcium (Lipitor) 40 mg PO HS [facility] Last Admin: 02/02/18 21:48 Dose: 40 mg Clopidogrel Bisulfate (Plavix) 75 mg PO DAILY [facility] Last Admin: 02/03/18 06:49 Dose: 75 mg Digoxin (Digoxin) 0.125 mg PO 1400 [facility] Last Admin: 02/02/18 14:06 Dose: 0.125 mg Levothyroxine Sodium (Synthroid) 175 mcg PO 0600 [facility] Last Admin: 02/03/18 05:54 Dose: Not Given Lisinopril (Zestril) 2.5 mg PO DAILY [facility] Last Admin: 02/02/18 10:18 Dose: 2.5 mg Mirtazapine (Remeron) 15 mg PO HS [facility] Last Admin: 02/02/18 21:50 Dose: 15 mg Oxycodone/Acetaminophen (Percocet 5/325 Mg Tab) 1 tab PO Q4H PRN PRN Reason: Pain, moderate (4-7) Stop: 02/04/18 07:49 Last Admin: 02/01/18 11:16 Dose: 1 tab Tiotropium [place] (Spiriva) 18 mcg IH DAILY [facility] Last Admin: 02/02/18 10:18 Dose: 18 mcg - Labs Labs: 02/02/18 07:00 02/02/18 07:00 PT 18.1 SECONDS (9.4-12.5) H 01/29/18 11:00 INR 1.56 01/29/18 11:00 APTT 36.2 Seconds (25.1-36.5) 01/29/18 11:00 - Constitutional Appears: Non-toxic, No Acute Distress - Head Exam Head Exam: NORMAL INSPECTION, NORMOCEPHALIC - Eye Exam Eye Exam: Normal appearance Pupil Exam: NORMAL ACCOMODATION - ENT Exam ENT Exam: Mucous Membranes Moist, Normal Exam - Respiratory Exam Respiratory Exam: Decreased Breath Sounds, Clear to Ausculation Bilateral, NORMAL BREATHING PATTERN - Cardiovascular Exam Cardiovascular Exam: +S1, +S2 - GI/Abdominal Exam GI & Abdominal Exam: Soft, Normal Bowel Sounds - Extremities Exam Extremities Exam: Full ROM, Normal Capillary Refill - Neurological Exam Neurological Exam: Alert, Awake, Oriented x3 - Psychiatric Exam Psychiatric exam: Normal Affect, Normal Mood - Skin Skin Exam: Dry, Normal Color, Warm Assessment and Plan - Assessment and Plan (Free Text) Assessment: A 77 year old male who came in to ER due to RUQ abdominal pain.History of multiple sclerosis,hypertension, hyperlipidemia, COPD, former smoker,atrial fibrilllation on Xarelto,hypothyroidism,coronary artery disease post stents five years ago. Admitted for RUQ abdominal pain due to cholelithiasis. Has also an episode of abdominal pain radiating to chest. Troponin were positive.Recent 10/18/2017 Echo showed LVEF of 50 %. Last Stress test 01/05/18 showed abnormal myocardial perfusion study.Fixed anteroseptal distal defect suggestive of tito cardial infarction. for cardiac cath today. Kept NPO. Plan: Denies chest pain, no distress Kept NPO For cardiac cath today Heart rate controlled Blood pressure controlled On ASA 81 mg daily,Lipitor 40 mg daily, plavix 75 mg daily, Digoxin 0.125 mg daily,Synthroid 175 mcg daily,Lisinopril 2.5 mg daily Continue current medications Continue current treatment Further recommendations after cardiac cath Will follow up Plan and treatment discussed with Dr. Hoffmann
[2018-02-03] MEDS ORDERED: Lidocaine 2% Inj (20ml) ONE (07:12)
[2018-02-03] MEDS ORDERED: Phenylephrine 10 mg/ml Inj ONE (07:12)
[2018-02-03] MEDS ORDERED: Iodixanol 320 MG/ML 100 ML BOTTLE IV ONE ×2 (07:13→08:59)
[2018-02-03] MEDS ORDERED: Iodixanol 320 MG/ML 200 ML BOTTLE IV ONE (07:13)
[2018-02-03] MEDS ORDERED: Nitroglycerin 50mg in D5W 50 MG/250 ML BOTTLE IV ONE (07:13)
[2018-02-03] MEDS ORDERED: Iohexol 350mgl/ml 50 ML ONE (07:13)
[2018-02-03] MEDS ORDERED: Heparin 2,000 ML IV ONE (07:14)
[2018-02-03] MEDS ORDERED: Midazolam 2 MG/2 ML VIAL ONE ×2 (07:30→14:08)
[2018-02-03] MEDS ORDERED: Eptifibatide 20 mg/10mL Inj IVP ONE (08:04)
[2018-02-03] MEDS ORDERED: Eptifibatide 0.75 mg/ml 75 MG/100 ML BOTTLE IV ONE (09:08)
[2018-02-03] MEDS ORDERED: Albuterol 0.042% Inhal Sol (1.25 mg/3 mL) UD IH STA (09:25)
[2018-02-03] MEDS ORDERED: Levalbuterol 0.63 MG/3 ML Inhal Soln UD IH PRN (09:44)
[2018-02-03] MEDS ORDERED: Eptifibatide 0.75 mg/ml 75 MG/100 ML BOTTLE IV SCH (09:45)
[2018-02-03] MEDS ORDERED: Sodium Chloride 0.9% 1,000 ML IV SCH (09:45)
--- NOTE | 2018-02-03 09:58 | PN ---
DATE: 02/03/2018 SUBJECTIVE: The patient has no complaints of any chest pain. No shortness of breath. PHYSICAL EXAMINATION: VITAL SIGNS: Temperature is 97.9, pulse is , blood pressure 162/73 and respirations are 18. GENERAL: The patient is lying in bed, flat, comfortable. HEENT: No oral lesion. Anicteric sclerae. Moist mucosa. NECK: No JVD, adenopathy, or thyromegaly. CARDIOVASCULAR: S1 and S2, regular. No murmurs, rubs, or gallops. LUNGS: Clear to auscultation bilaterally. No wheeze, rales, or rhonchi. ABDOMEN: Bowel sounds are positive, soft, nontender and nondistended. EXTREMITIES: No cyanosis, clubbing or edema. LABORATORY DATA: White count of 10.0 and hemoglobin 10.5. Creatinine is 1.3. ASSESSMENT: 1. Delirium. 2. Non-ST elevation myocardial infarction. 3. Abdominal pain, secondary to gallstones. 4. Atrial fibrillation on anticoagulation, on hold. 5. Hypothyroidism. 6. Multiple sclerosis. 7. Hypertension. 8. Dyslipidemia. 9. Hearing impairment. 10. Hearing impairment. 11. Chronic obstructive pulmonary disease. PLAN: The patient is getting his cardiac cath today. The patient is on aspirin for the coronary artery disease. He is on Digoxin. The patient is on Lipitor for dyslipidemia. The patient is on Nuvigil, so we can unhold as well as Percocet. He was confused yesterday. The patient is on Spiriva for his COPD. He is going to be on Lisinopril for hypertension. He is on Synthroid for hypothyroidism. We will await further input from Dr. Hoffmann after the cardiac cath, about discharge planning. The patient has stated that he would like to go home today. Ap Osborne MD
--- NOTE | 2018-02-03 10:15 | RAD ---
Date of service: 02/03/2018 HISTORY: SOB COMPARISON: 01/29/2018 FINDINGS: LUNGS: There is a diffuse perihilar alveolar infiltrate consistent with pulmonary edema. This has increased since the previous study PLEURA: No significant pleural effusion identified, no pneumothorax apparent. CARDIOVASCULAR: No aortic atherosclerotic calcification present. Mild cardiomegaly OSSEOUS STRUCTURES: No significant abnormalities. VISUALIZED UPPER ABDOMEN: Normal. OTHER FINDINGS: None. IMPRESSION: Pulmonary edema
[2018-02-03 10:26] LABS: BLOOD UREA NITROGEN 22 mg/dL (7-21); GFR NON-AFRICAN AMERICAN > 60
--- NOTE | 2018-02-03 10:26 | CPOSTOP ---
DATE: 02/03/2018 Physician: Dr. Marbella mcgowan [employer] DEVELOPER: Milli Bateman property maintenance technician. TYPE OF ANESTHESIA: Moderate conscious sedation, total 3 mg of Versed and 100 of fentanyl given. PRE-PROCEDURE DIAGNOSIS: Unstable angina, nonischemic myocardial infraction, coronary artery disease, history of multiple stents in the past. Admitted with sepsis, acute cholecystitis. PROCEDURE PERFORMED: Left heart catheterization and plain balloon angioplasty of OM1. FINDINGS: Multiple coronary artery disease, false pass triple vessel disease. POST PROCEDURE PATIENT CONDITION: FAIR Vascular access site: right femoral artery, Closure device :Mynx applied. TOTAL RADIATION DOSE: 56147.1 milligray unit. TOTAL FLUORO TIME: 19.3 minutes. DATE of Procedure: 02/03/[address] Cuadra for the opportunity in taking care of the patient. Valeria Mcgowan MD [facility]
[2018-02-03 10:27] LABS: ALB/GLOB RATIO 0.9 (1.1-1.8); ALBUMIN 3.1 g/dL (3.0-4.8); ALT/SGPT 59 U/L (7-56); AST/SGOT 74 U/L (17-59); CALCIUM 8.3 mg/dL (8.4-10.5)
[2018-02-03] MEDS: Nitroglycerin 50mg in D5W 50 MG/250 ML BOTTLE IV PRN ×2 (10:30→23:54)
[2018-02-03] MEDS ORDERED: Magnesium Sulfate 1 gm in D5W 1 GM/100 ML BAG IVPB STA (12:31)
[2018-02-03 13:28] LABS: BASO # 0.02 K/mm3 (0.0-2.0); BASO % 0.2 % (0.0-3.0); EOS % 0.4 % (1.5-5.0); GRAN # 9.31 (1.4-6.5); GRAN % 91.7 % (50.0-68.0); HEMOGLOBIN 11.1 g/dL (14.0-18.0); LYMPH # 0.6 (1.2-3.4); LYMPH % 5.4 % (22.0-35.0); MEAN CELL VOLUME 84.3 fl (80.0-105.0); MEAN CORPUSCULAR HEMOGLOBIN 25.6 pg (25.0-35.0); MEAN CORPUSCULAR HGB CONC 30.4 g/dl (31.0-37.0); MONO # 0.2 (0.1-0.6); MONO % 2.3 % (1.0-6.0); PLATELET COUNT 348 10^3/uL (120.0-450.0); RBC 4.33 10^6/uL (3.5-6.1); WHITE BLOOD COUNT 10.2 10^3/uL (4.5-11.0)
[2018-02-03 13:36] LABS: BLOOD UREA NITROGEN 22 mg/dL (7-21); CALCIUM 8.6 mg/dL (8.4-10.5); GFR NON-AFRICAN AMERICAN > 60
--- NOTE | 2018-02-03 14:06 | CP.PCM.CON ---
History of Present Illness - History of Present Illness History of Present Illness: MICU Consult Note HPI Patient is 77 y/o M with PMHx HTN, COPD, CHF, CAD (s/p stent), Afib (on xarelto), Hypothyroidism, MS who presented for abdominal pain, found to have gallstones, and NSTEMI. Pt underwent PCI today to PTCA to OM1, during the procedure became SOB, given Lasix, transferred to MICU CXR today today demonstrated worsening pulmonary edema. Placed on Nitro drip, Lasix IV given, BIPAP placed, with improvement in resp symptoms. PMHx: HTN, COPD, CHF, CAD (s/p stent), Afib (on xarelto), Hypothyroidism, MS PSHx: appendectomy, Right supra-clavicular node removal, b/l medial meniscusectomies, right inguinal herniorraphy, and right elbow repair OR/IF Allergies: tape Meds: see MAR FHx: non-contributory Review of Systems - Review of Systems Review of Systems: as per HPI Past Patient History - Infectious Disease Hx of Infectious Diseases: None - Tetanus Immunizations Tetanus Immunization: Unknown - Past Medical History & Family History Past Medical History?: Yes - Past Social History Smoking Status: Former Smoker - CARDIAC Hx Cardiac Disorders: Yes Hx Angina: Yes Hx Cardia Arrhythmia: Yes (afib) Hx Congestive Heart Failure: Yes Hx Hypercholesterolemia: Yes Hx Hypertension: Yes Other/Comment: stents, hx cardiac rehab, ashd silent mi - PULMONARY Hx Respiratory Disorders: Yes Hx Bronchitis: Yes Hx Chronic Obstructive Pulmonary Disease (COPD): Yes Hx Emphysema: Yes Hx Pneumonia: Yes ("mrsa" pneumonia) Hx Sleep Apnea: Yes (uses cpap at home) - NEUROLOGICAL Hx Neurological Disorder: Yes (multiple sclerosis dx 2000) Other/Comment: NEUROPATHY, right side weakness due to ms right leg "catches", right side weakness, falls - HEENT Hx HEENT Problems: Yes Other/Comment: MAKAH, currently usig left hearing aid, right one is broken - RENAL Hx Chronic Kidney Disease: Yes - ENDOCRINE/METABOLIC Hx Endocrine Disorders: Yes Hx Hypothyroidism: Yes - HEMATOLOGICAL/ONCOLOGICAL Hx Blood Disorders: Yes Hx Anemia: Yes (blood tranfusion x2) - INTEGUMENTARY Hx Dermatological Problems: Yes Other/Comment: dermatitis, 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 "I see a paver every year, r ft +2 pitting edema dry thisk nails, L ft +1 pitting edema dry skin thick dry toenails, laceration to eyebrows, face, head injury,rib fx's due to falls in past - MUSCULOSKELETAL/RHEUMATOLOGICAL Hx Musculoskeletal Disorders: Yes (scoliosis) Hx Arthritis: Yes Hx Falls: Yes (multiple) Hx Fractures: Yes (ribs) Hx Osteoarthritis: Yes Hx Unsteady Gait: Yes (cane) Other/Comment: R SHOULDER ARTHROPLASTY orif r elbow, mcgill esophagus, b/l medial meniscusectomy, right femoral head/shoulder replacement, right knee swollen "needs replacement" pt stated. - GASTROINTESTINAL Hx Gastrointestinal Disorders: Yes Hx Gall Bladder Disease: Yes (gallstones) Hx Gastroesophageal Reflux: Yes Other/Comment: esophageal stenosis, gastritis, colon polyp, barretts esophagus - GENITOURINARY/GYNECOLOGICAL Hx Genitourinary Disorders: Yes Hx Prostate Problems: Yes (BPH) Other/Comment: us due to right hydrocele, 08/20/12 epididmytis - PSYCHIATRIC Hx Emotional Abuse: No Hx Physical Abuse: No Hx Substance Use: No - SURGICAL HISTORY Hx Surgeries: Yes Hx Appendectomy: Yes Hx Cardiac Catheterization: Yes Hx Coronary Stent: Yes (ptca/stents x2 02/2012) Other/Comment: laparotomy, rt supraclavicular node removal, coronary artery angiogram [facility], bilateral medial meniscusectomies, rt inguinal herniorraphy, rt elbow repair OR/IF, trans urethral needle ablation prostate, r shoulder arthroplasty 08/2014, incomplete colonoscopy poor prep 04/15/14 hx polyps, excision lypoma, exploratory lap - ANESTHESIA Hx Anesthesia Reactions: Yes ("BLEEDING FROM AIRWAY USED") Hx Malignant Hyperthermia: No Meds Allergies/Adverse Reactions: Allergies Allergy/AdvReac Type Severity Reaction Status Date / Time tape AdvReac REDNESS Uncoded 01/29/18 09:51 - Medications Medications: Current Medications Albuterol/Ipratropium (Duoneb 3 Mg/0.5 Mg (3 Ml) Ud) 3 ml IH [id number] [facility] Last Admin: 02/03/18 13:41 Dose: 3 ml Armodafinil (Nuvigil 250 Mg Tab) 250 mg PO DAILY [facility] Last Admin: 02/01/18 10:01 Dose: 250 mg Aspirin (Ecotrin) 81 mg PO DAILY [facility] Last Admin: 02/03/18 06:49 Dose: 81 mg Aspirin (Aspirin) 325 mg PO DAILY [facility] Last Admin: 02/02/18 14:41 Dose: Not Given Atorvastatin Calcium (Lipitor) 40 mg PO HS [facility] Last Admin: 02/02/18 21:48 Dose: 40 mg Clopidogrel Bisulfate (Plavix) 75 mg PO DAILY [facility] Last Admin: 02/03/18 06:49 Dose: 75 mg Digoxin (Digoxin) 0.125 mg PO 1400 [facility] Last Admin: 02/02/18 14:06 Dose: 0.125 mg Eptifibatide (Integrilin) 75 mg in 100 mls @ 5.661 mls/hr IV .[id number] [facility]; Protocol Stop: 02/04/18 03:00 Sodium Chloride (Sodium Chloride 0.9%) 1,000 mls @ 50 mls/hr IV .Q20H [facility] Stop: 02/03/18 14:00 Nitroglycerin/Dextrose (Nitroglycerin 50 Mg/250 Ml D5w) 50 mg in 250 mls @ 3 mls/hr IV .Q24H PRN; Protocol PRN Reason: chest pain Stop: 02/04/18 07:00 Levalbuterol HCl (Xopenex) 0.63 mg IH [id number] PRN PRN Reason: Shortness of Breath Levothyroxine Sodium (Synthroid) 175 mcg PO 0600 [facility] Last Admin: 02/03/18 05:54 Dose: Not Given Lisinopril (Zestril) 2.5 mg PO DAILY [facility] Last Admin: 02/02/18 10:18 Dose: 2.5 mg Methylprednisolone (Solu-Medrol) 60 mg IVP Q8 [facility] Mirtazapine (Remeron) 15 mg PO HS [facility] Last Admin: 02/02/18 21:50 Dose: 15 mg Oxycodone/Acetaminophen (Percocet 5/325 Mg Tab) 1 tab PO Q4H PRN PRN Reason: Pain, moderate (4-7) Stop: 02/04/18 07:49 Last Admin: 02/01/18 11:16 Dose: 1 tab Tiotropium [place] (Spiriva) 18 mcg IH DAILY [facility] Last Admin: 02/02/18 10:18 Dose: 18 mcg Physical Exam - Constitutional Appears: Non-toxic, No Acute Distress - Head Exam Head Exam: NORMAL INSPECTION - Eye Exam Eye Exam: Normal appearance - ENT Exam ENT Exam: Mucous Membranes Moist - Neck Exam Neck exam: Positive for: Full Rom - Respiratory Exam Respiratory Exam: Rales, Wheezes, NORMAL BREATHING PATTERN - Cardiovascular Exam Cardiovascular Exam: REGULAR RHYTHM, +S1, +S2 - GI/Abdominal Exam GI & Abdominal Exam: Normal Bowel Sounds, Soft - Extremities Exam Extremities exam: Positive for: normal inspection - Neurological Exam Neurological exam: Alert, Oriented x3 - Psychiatric Exam Psychiatric exam: Normal Affect - Skin Skin Exam: Normal Color, Warm Results - Vital Signs Recent Vital Signs: Last Vital Signs Temp 97.9 F 02/03/18 07:00 Pulse 104 H 02/03/18 09:55 Resp 18 02/03/18 07:00 BP 162/73 H 02/03/18 07:00 Pulse Ox 95 02/03/18 07:00 - Labs Result Diagrams: 02/03/18 13:15 02/03/18 13:15 Labs: Laboratory Results - last 24 hr 02/03/18 02/03/18 02/03/18 10:00 13:15 13:15 WBC 10.2 RBC 4.33 Hgb 11.1 L Hct 36.5 L MCV 84.3 MCH 25.6 MCHC 30.4 L RDW 16.0 H Plt Count 348 MPV 9.0 Gran % 91.7 H Lymph % (Auto) 5.4 L [place] % (Auto) 2.3 Eos % (Auto) 0.4 L Baso % (Auto) 0.2 Gran # 9.31 H Lymph # (Auto) 0.6 L [place] # (Auto) 0.2 Eos # (Auto) 0.0 Baso # (Auto) 0.02 Sodium 141 141 Potassium 4.0 4.1 Chloride 109 H 106 Carbon Dioxide 26 30 Anion Gap 11 10 BUN 22 H 22 H Creatinine 1.1 1.1 Est GFR ( Amer) > 60 > 60 Est GFR (Non-Af Amer) > 60 > 60 Random Glucose 170 H 150 H Calcium 8.3 L 8.6 Total Bilirubin 0.8 AST 74 H ALT 59 H Alkaline Phosphatase 116 Total Protein 6.6 Albumin 3.1 Globulin 3.5 Albumin/Globulin Ratio 0.9 L - Imaging and Cardiology Chest x-ray Status: Image reviewed by me, Report reviewed by me Assessment & Plan - Assessment and Plan (Free Text) Assessment: Patient is 77yo male with PMHx HTN, COPD, CHF, CAD (s/p stent), Afib (on xarelto), Hypothyroidism, MS admitted for abd pain, NSTEMI, s/p PTCA to OM1 and pulm edema Currently afebrile, HD stable, comfortable in NAD, on BIPAP, Nitro drip, given Lasix 40mg IV x 2, Solumedrol IV COPD CAD Afib on Xarelto Hypothyroidism Pulm edema Recommend: - cont with BIPAP as tolerated, Duonebs PRN, SOlumedrol 40mg IV TID - Lasix 40mg IV BID - Nitro drip - BP control - ASA, Integrillin drip as per cardiology - Hold Xarelto for now as per cardio - ECHO - GI ppx - DVT ppx, HSQ - Monitor in CCU
[2018-02-03] MEDS: Tiotropium 18 mcg Cap For Inhalation IH SCH (14:17)
[2018-02-03 14:20] LABS: EOSINOPHIL 1 % (0.0-3.0); LYMPHOCYTE 4 % (22.0-35.0); MONOCYTE 1 % (1.0-6.0); NEUTROPHIL 94 % (50.0-70.0); PLATELET ESTIMATE NORMAL (NORMAL)
[2018-02-03] MEDS: Digoxin 125 mcg (0.125 mg) Tab PO SCH (14:25)
--- NOTE | 2018-02-03 14:25 | PN ---
DATE: 02/03/2018 TYPE OF DICTATION: status post plain balloon angioplasty of OM1. This note is an addition to note dictated by nurse practitioner, Tonio Dueñas. In summary, this is a 77-year-old male with a past medical history significant for coronary artery disease, status post multiple stents in the past, atrial fibrillation, on Xarelto, hypothyroidism, multiple sclerosis, admitted with gastric pain, abdominal pain, acute cholecystitis, borderline troponin positive, and non-ST elevation myocardial infarction. The patient was taken to the [facility] this morning and underwent cardiac catheterization that revealed hoopa triple-vessel disease, high-grade stenosis in OM1 95%. So, the patient did have balloon angioplasty, stent was attempted but unable to take the stent because his previous stent in LAD is occluding, which is taking a little bit in left main. Plain balloon angioplasty was done. Distal OM1 has very slow flow. So, Integrilin was started and the patient at the end, the blood pressure was 170/111. So, IV Tridal was started and the patient had to move to ICU because the patient did develop acute exacerbation of COPD as well. Stat Proventil treatment is being given and then the plan is to move to ICU, cut down the fluid to 50 mL an hour, give IV , and start Integrilin for 18 hours and continue IV Tridal and move to ICU. Further management depending on hospital course. Family member, the patient's sister, Silvia Powell, telephone #[phone] updated about the patient's postprocedure angioplasty. The patient was a DNR before the during the procedure and then back resumed. Valeria Hoffmann MD
[2018-02-03] MEDS: MethylPREDNISolone 40 mg Vial IVP SCH ×2 (19:59→22:21)
[2018-02-04] MEDS: Albuterol-Ipratrop 3 mg / 0.5 (3 ml) UD IH SCH ×3 (01:27→07:54)
[2018-02-04] MEDS: Levothyroxine 175 MCG TAB PO SCH (05:30)
[2018-02-04] MEDS: MethylPREDNISolone 40 mg Vial IVP SCH ×3 (05:30→17:16)
[2018-02-04 05:41] LABS: GRAN # 7.81 (1.4-6.5); GRAN % 85.2 % (50.0-68.0); HEMOGLOBIN 9.7 g/dL (14.0-18.0); LYMPH % 10.9 % (22.0-35.0); MEAN CELL VOLUME 83.6 fl (80.0-105.0); MEAN CORPUSCULAR HEMOGLOBIN 25.7 pg (25.0-35.0); MEAN CORPUSCULAR HGB CONC 30.8 g/dl (31.0-37.0); MEAN PLATELET VOLUME 8.7 fl (7.0-11.0); MONO # 0.4 (0.1-0.6); MONO % 3.9 % (1.0-6.0); RBC 3.77 10^6/uL (3.5-6.1); RED CELL DISTRIBUTION WIDTH 16.1 % (11.5-14.5); WHITE BLOOD COUNT 9.2 10^3/uL (4.5-11.0)
[2018-02-04 05:58] LABS: CALCIUM 8.2 mg/dL (8.4-10.5)
[2018-02-04 06:52] LABS: TROPONIN I 27.4 ng/mL
[2018-02-04] MEDS ORDERED: Magnesium Sulfate 2 gm/50 ml 2 GM/50 ML BAG IVPB ONE (08:51)
[2018-02-04] MEDS: Nitroglycerin 2% Ointment Foilpak UD TOP SCH ×3 (09:29→21:22)
[2018-02-04] MEDS: Tiotropium 18 mcg Cap For Inhalation IH SCH (09:32)
--- NOTE | 2018-02-04 10:04 | RAD ---
Date of service: 02/04/2018 HISTORY: R/O pneumonia Vs CHF COMPARISON: February 03, 2018. FINDINGS: LUNGS: Modest interval improvement in pulmonary edema. PLEURA: No significant pleural effusion identified, no pneumothorax apparent. CARDIOVASCULAR: Atherosclerotic calcifications identified primarily aortic arch. OSSEOUS STRUCTURES: No significant abnormalities. VISUALIZED UPPER ABDOMEN: Normal. OTHER FINDINGS: None. IMPRESSION: Interval improvement with respect to previously identified severe pulmonary edema.
[2018-02-04] MEDS: Armodafinil 250 mg Tab PO SCH (10:24)
[2018-02-04 10:25] LABS: TROPONIN I 22.4 ng/mL
--- NOTE | 2018-02-04 10:36 | CARD ---
APPROVED REPORT Date of service: 02/03/2018 Procedure(s) performed: Left Heart Catheterization PTCA with Balloon Angioplasty of proximal Circumflex PTCA with Balloon Angioplasty of OM1 HISTORY The patient is a 77 year-old male with a history of : previous ND (> 7 days), chronic lung disease, previous diagnostic cath, tobacco history() : The patient is a former smoker , previous PCI (The PCI date was 02/12/2012), hypertension , dyslipidemia , Ch. A fib on Xarelto,who admitted with sepsis secondary to Acute Cholecystitis and NSTEMI, Hx of recent stress test before sepsis was abnorma.l. INDICATION The indication(s) include : positive stress test, non-STEMI , atrial fibrillation. CASE TECHNIQUE The patient was brought urgently to the Cardiac Catheterization Laboratory in a fasting state and was prepped and draped in a sterile manner. The right femoral groin was infiltrated with 2% Lidocaine subcutaneous anesthesia. A 6 Fr x 11 cm Tarah sheath was inserted into the right femoral artery without difficulty. Coronary angiography was performed using coronary diagnostic catheters. The left coronary system was accessed and visualized with a Diagnostic catheter. The right coronary system was accessed and visualized with a Diagnostic catheter. The left ventricle was accessed and visualized with a 6F PIGTAIL 145 CATH DXT 110 CM catheter. Left ventricular/Aortic Valve gradient assessed on pullback. Left ventriculogram was performed in ZAMORA projection. Closure device was deployed with a 6 Fr / 7 Fr MynxGrip without any complications. The patient tolerated the procedure well and there were no complications associated with the procedure. Vessel Analysis The patient's coronary anatomy is co-dominant. The left main coronary artery is a large size vessel with diffuse calcification noted throughout this vessel and without significant stenosis. The left main bifurcates to the left anterior descending and circumflex. The left anterior descending artery is a medium size vessel with diffuse calcification noted throughout this vessel and without significant stenosis. patent stent proximally, Distally LAD is diffusely diseased There is a 50-60% stenosis in the mid segment. The first diagonal branch is a medium size vessel with diffuse calcification noted throughout this vessel and with significant stenosis. There is a 60-70% stenosis in the proximal segment. The circumflex artery is a large size vessel with diffuse calcification noted throughout this vessel and without significant stenosis. Distal Cx continued as L PDA is diffusely diseased. The first obtuse marginal branch is a large size vessel with diffuse calcification noted throughout this vessel and with significant stenosis. There is a 95% stenosis in the proximal segment. and 90% mid OM1 has stenosis The second obtuse marginal branch is a small size vessel with diffuse calcification noted throughout this vessel and without significant stenosis. There is a 60% stenosis in the proximal segment. The left posterior descending artery is a small size vessel . There is a 70% stenosis in the proximal segment. The right coronary artery is a medium size vessel with diffuse calcification noted throughout this vessel and without significant stenosis. Distal RCA is diffusely diseased There is a 60-70% stenosis in the mid segment. Left Ventricle The left ventricle is enlarged in size with moderately contractility. Ischemic cardiomyopathy. The left ventricular ejection fraction is estimated to be 35%. The left ventricular end diastolic pressure is 20 mmHg. There was no gradient across the aortic valve upon pullback. PCI Technique Lesion Anticoagulation was achieved with Heparin and Integrellin two bollous. Percutaneous coronary intervention was performed on the first obtuse marginal branch segment. The lesion stenosis prior to intervention was 95% with KARINA 1 flow. A 6 Fr XB 3.5 Guide Catheter was used to engage the ostium. A Luge 182 Interventional Guidewire was used to cross the lesion. BALLOON DILATION A Balloon catheter 2.0 x 15 mm Sprinter RX was inserted and inflated up to 10.00atm for 60seconds. F/u by 2.5/15 Balloon Sprinter inflated at 12-14 atmosphere for 60 seconds , multiple inflation Final angiography reveals 20 % stenosis with KARINA 2 flow. COMMENTS Colud not take stent,as previous LAD stent was sticking out in left main, that strip new stent from Balloon, but it was successfully removed undeployed.second time after dilating OM1 with 2.5/15 balloon stent was attepmted but could not be advanced for above reason, so only POBA was done Conclusion [place] triple vesel Disease, Distal Vessel are diffusely Diseased, not suitable for CABG. Ischemic CMP, EF-355, EDP-20 mmof hg. Succeessful POBA of OM! done, could not deployed stent, because Previous LAD stent was obstructing. Recommendations Aggressive Medical TherapyCardiac Risk Reduction Program Weight Loss Reduction Program Plavix and Xarelto for 2-4 weeks ( a fib), followed by Baby ASA and xcarelto. Reassess Lv Fx in 3-6 months, if EF remains less than 355, consider AICD. Interim Heart failure therapy, Dig, Coreg, Lasix, spironoolactone and entersto as bp is tolerated. CC; Teresa Parker MD
[2018-02-04 10:47] LABS: CK MB% 11.2 % (2.5-3.0); CK-MB 45.3 ng/mL (0.0-3.6)
--- NOTE | 2018-02-04 11:40 | PN ---
DATE: 02/04/2018 REASON FOR CONSULTATION AND FOLLOWUP: Acute coronary syndrome, nonischemic myocardial infraction status post PTCA, plain balloon angioplasty of OM1. SUBJECTIVE: The patient is in ICU 129, bed 5. Postop, the patient went into pulmonary edema, moved to ICU. Currently, he is in ICU 129, bed 5. He denies any chest pain, short of breath, or any palpitation. OBJECTIVE: GENERAL: Not in apparent distress. VITAL SIGNS: Temperature afebrile, heart rate 99, and blood pressure 124/69. HEENT: PERRLA intact. NECK: Supple. No carotid bruits or thyromegaly. CHEST: Clear to auscultation. HEART: S1 and S2 regular. ABDOMEN: Soft. EXTREMITIES: Clubbing and cyanosis negative. LABORATORY DATA: EKG shows normal sinus, PVCs. Telemetry shows frequent PVCs. Blood workup; WBC 9.2, hemoglobin 9.7, hematocrit 31.5, and platelet count 335. Chemistry shows sodium 139, potassium 3.9, chloride 103, carbon dioxide 30, anion gap of 7, BUN 26, creatinine 1.4, troponin 27.4. IMPRESSION AND PLAN: Acute coronary syndrome, unstable angina status post percutaneous transluminal coronary angioplasty of obtuse marginal 1, perioperative myocardial infarction, uzz-TJ-joyihlthn myocardial infarction secondary to complex intervention. Stent attempted to take obtuse marginal 1 could not take because of the previous stent in left anterior descending is taking at the left main, so the patient is done just plain balloon angioplasty of obtuse marginal 1. History of chronic atrial fibrillation, history of chronic obstructive pulmonary disease and cardiomyopathy. RECOMMENDATIONS: Integrilin was discontinue at 3 a.m. Lasix will change to p.o. Continue Plavix for 2 weeks. We will discontinue baby aspirin tomorrow after the dose. We will start Xarelto from tomorrow if an H and H remains stable. Continue dig 0.125 mg. Continue lisinopril from tomorrow. Avoid the MADINA inhibitors because of yesterday patient had almost 250 of dye was given. Angioplasty to prevent renal insufficiency. Follow up serial CPK, troponin. Repeat troponin tomorrow to see the trend. We will get EKG tomorrow. We will DC nitroglycerin. We will put paste. We will put low-dose beta-kwesi as blood pressure and heart rate is tolerated. We will repeat echocardiogram in the morning. Thank you Dr. Cuadra for providing us the opportunity in taking care of the patient, Tonio Spenser. Valeria Hoffmann MD
[2018-02-04] MEDS: Digoxin 125 mcg (0.125 mg) Tab PO SCH (14:32)
--- NOTE | 2018-02-04 18:39 | CARD ---
APPROVED REPORT Date of service: 02/04/2018 EKG Measurement Heart [id number] <Conclusion> Sinus rhythm with 1st degree AV block Right bundle branch block Left anterior fascicular block Bifascicular block Inferior infarct, age undetermined Inferior infarct, age undetermined Abnormal ECG
--- NOTE | 2018-02-04 18:43 | CARD ---
APPROVED REPORT Date of service: 02/04/2018 EKG Measurement Heart [id number] [place] [id number] <Conclusion> Sinus rhythm with 1st degree AV block with occasional premature ventricular complexes and premature atrial complexes Right bundle branch block Left anterior fascicular block Bifascicular block Inferior infarct, age undetermined Abnormal ECG
--- NOTE | 2018-02-04 20:05 | PN ---
DATE: 02/04/2018 SUBJECTIVE: The patient is a 77-year-old, seen and examined, lying in bed, seems to be comfortable, wants to go home. PHYSICAL EXAMINATION VITAL SIGNS: The patient is afebrile, pulse 90, respirations 20, blood pressure 124/69. HEENT: Pupils equally reactive. Nonicteric sclerae. Hepler conjunctivae. NECK: Supple. No thyromegaly. LUNGS: Bilateral fair airflow. No rhonchi or crackle. HEART: S1 and S2 audible. ABDOMEN: Soft, nontender. No rebound. No guarding. NEUROLOGICAL: The patient is awake, alert, oriented, and communicative. LABORATORY DATA: WBC 9.2, hemoglobin 9.7, hematocrit 31.5, platelet 335. Chemistry: Sodium 139, potassium 3.9, chloride 103, CO2 32, BUN 26, creatinine 1.4 and blood sugar 155. LFTs are within normal limits. Magnesium 1.6. LDH 979. Troponin 22.40. Digoxin 1.4. ASSESSMENT AND PLAN: 1. Status post myocardial infarction, status post cardiac catheterization. Had obtuse marginal angioplasty. 2. Non-ST elevation myocardial infarction. 3. History of depression. 4. Chronic obstructive pulmonary disease. 5. Chronic back pain. 6. Hyperlipidemia. 7. Hypothyroidism. PLAN: The patient's MAR reviewed, found to be appropriate. The patient's troponin is high recent intervention. Continue him on diuretic. He is on beta blockers, magnesium has been supplemented. He is on IV steroid, to 40 every 12 hours. Out of bed to chair. Encourage ambulation. We will follow up the patient's electrolytes, CBC, CMP in a.m. Eileen Florez MD
[2018-02-05] MEDS: Levothyroxine 175 MCG TAB PO SCH (06:20)
[2018-02-05 06:41] LABS: EOS % 0.2 % (1.5-5.0); GRAN # 10.99 (1.4-6.5); GRAN % 75.6 % (50.0-68.0); HEMOGLOBIN 10.5 g/dL (14.0-18.0); LYMPH # 2.6 (1.2-3.4); LYMPH % 17.7 % (22.0-35.0); MEAN CELL VOLUME 84.2 fl (80.0-105.0); MEAN CORPUSCULAR HEMOGLOBIN 25.1 pg (25.0-35.0); MEAN CORPUSCULAR HGB CONC 29.7 g/dl (31.0-37.0); MEAN PLATELET VOLUME 9.5 fl (7.0-11.0); MONO # 0.9 (0.1-0.6); MONO % 6.5 % (1.0-6.0); RBC 4.19 10^6/uL (3.5-6.1); RED CELL DISTRIBUTION WIDTH 16.5 % (11.5-14.5); WHITE BLOOD COUNT 14.5 10^3/uL (4.5-11.0)
[2018-02-05 07:11] LABS: ALBUMIN 3.4 g/dL (3.0-4.8); CALCIUM 8.6 mg/dL (8.4-10.5); TROPONIN I 12.3 ng/mL
[2018-02-05] MEDS: MethylPREDNISolone 40 mg Vial IVP SCH (09:38)
[2018-02-05] MEDS: Tiotropium 18 mcg Cap For Inhalation IH SCH (09:39)
[2018-02-05] MEDS: SACUBITRIL 24mg/VALSARTAN 26mg tab PO SCH ×2 (09:40→17:41)
[2018-02-05] MEDS: Armodafinil 250 mg Tab PO SCH (10:12)
[2018-02-05] MEDS: Digoxin 125 mcg (0.125 mg) Tab PO SCH (13:24)
[2018-02-05 13:25] VITALS: PULSE 64
--- NOTE | 2018-02-05 14:03 | PN ---
DATE: 02/05/2018 REASON FOR CONSULTATION AND FOLLOWUP: Acute coronary syndrome, nonischemic cardiomyopathy, status post PTCA, plain balloon angioplasty of OM1. SUBJECTIVE: The patient denies any chest pain, short of breath, or any palpitation. OBJECTIVE: GENERAL: Not in apparent distress, lying flat on the bed in ICU 129, bed 5, anxiously awaiting to go home to be discharged. VITAL SIGNS: Temperature afebrile, heart rate 74, and blood pressure 137/80. HEENT: PERRLA. Extraocular muscles intact. NECK: Supple. No carotid bruits or thyromegaly. CHEST: Clear to auscultation. HEART: S1 and S2 regular. ABDOMEN: Soft. EXTREMITIES: Clubbing and cyanosis negative. LABORATORY DATA: WBC 14.5, hemoglobin 10.5, hematocrit 35.3, and platelet count 391. Chemistry shows sodium 141, potassium 4, chloride 101, carbon dioxide 33, anion gap of 12, BUN 33, creatinine 1.4, troponin 12.3. CPK trended down 188. Total protein 6.7, albumin 3.4, albumin globulin ratio 1. IMPRESSION: A 77-year-old male with a past medical history of chronic atrial fibrillation, chronic obstructive pulmonary disease, history of coronary artery disease, cardiomyopathy, admitted initially with sepsis secondary to acute cholecystitis, also qwg-FI-fucwijr myocardial infraction. The patient had a stress test prior and was scheduled for a office visit and cardiac catheterization in February, but because of ____ cardiac catheterization but because of non-ST segment myocardial infraction, the patient underwent cardiac catheterization and subsequently plain balloon angioplasty of obtuse marginal 1. Stent in obtuse marginal 1 was attempted, but because the previous stent is sticking out into the left mid from left anterior descending, could not deploy the stent, could not take the stent as well . So plain balloon angioplasty was done. Now, the patient is fairly stable. The patient is kept in telemetry for 18 hours and monitor for 48 hours because after the plain balloon angioplasty intervention, troponin was positive, maximum troponin was 27.4 and now trended to 12.3. The patient is asymptomatic. RECOMMENDATIONS: The plan is to be discharged. History of cardiomyopathy; we will get echo to assess left ventricular function before the patient goes. Current medication on discharge will include; we will discontinue baby aspirin, continue Xarelto for atrial fibrillation, Plavix for four weeks 75 mg daily, baby aspirin was discontinued, Lasix 40 mg from today and we will continue digoxin 0.125 mg daily, Coreg 3.125 mg twice, spironolactone 25 mg once and start Entresto once a day. We will discontinue lisinopril. So a new prescription for Entresto was given as well as Lasix 40 mg once a day, spironolactone 25 mg sublingual once a day, Coreg 3.125 mg twice a day and Imdur 30 mg once a day as well as Plavix for four weeks was given. Thank you Dr. Florez/[facility] for providing us the opportunity in taking care of patient Spenser. Valeria Hoffmann MD
--- NOTE | 2018-02-05 14:55 | CARD ---
APPROVED REPORT Date of service: 02/05/2018 EXAM: Two-dimensional and M-mode echocardiogram with Doppler and color Doppler. INDICATION S/P PTCA 2D DIMENSIONS Left Atrium (2D)4.9 (1.6-4.0cm)IVSd1.6 (0.7-1.1cm) LVDd5.0 (3.9-5.9cm)PWd1.5 (0.7-1.1cm) LVDs4.1 (2.5-4.0cm)FS (%) 18.2 % LVEF (%)37.5 (>50%) M-Mode DIMENSIONS Aortic Root2.70 (2.2-3.7cm)Aortic Cusp Exc.1.30 (1.5-2.0cm) Aortic Valve AoV Peak Yworbgjz635.0cm/Tono Peak GR.13mmHg Mitral Valve MV E Ctbuidet704.0cm/sMV A Ftrwfpdy16.6cm/sE/A ratio1.7 TDI E/Lateral E'0.0E/Medial E'0.0 Tricuspid Valve TR Peak Kunbsihu685kn/sRAP GLUFGULK44kgIqDU Peak Gr.13mmHg ZPVL93dyAr LEFT VENTRICLE The left ventricle is normal size. There is mild to moderate concentric left ventricular hypertrophy. The systolic function is moderately impaired.EF-35% There is mild to moderate hypokinesis in the apical anterior wall. There is mild hypokinesis in the mid-inferoseptal wall. A fib, distolic Fx colud not be assesed No left ventricle thrombus noted on this study. There is no ventricular septal defect visualized. There is no left ventricular aneurysm. There is no mass noted in the left ventricle. RIGHT VENTRICLE The right ventricle is normal size. There is normal right ventricular wall thickness. The right ventricular systolic function is normal. ATRIA The left atrium is mildly dilated. The right atrium size is normal. The interatrial septum is intact with no evidence for an atrial septal defect. AORTIC VALVE The aortic valve is calcified but opens well. No aortic regurgitation is present. There is no aortic valvular stenosis. There is no aortic valvular vegetation. MITRAL VALVE The mitral valve is thickened but opens well. Mitral annular calcification is mild to moderate. Mitral regurgitation is mild to moderate. There is no mitral valve stenosis. There is no evidence of mitral valve prolapse. TRICUSPID VALVE The tricuspid valve leaflets are thickened , but open well. There is mild tricuspid regurgitation.RVSP-23 mmof Hg. There is no tricuspid valve stenosis. There is no tricuspid valve prolapse or vegetation. PULMONIC VALVE The pulmonary valve is normal in structure. There is no pulmonic valvular regurgitation. There is no pulmonic valvular stenosis. GREAT VESSELS The aortic root is normal in size. The ascending aorta is normal in size. The pulmonary artery is normal. The IVC is normal in size and collapses >50% with inspiration. PERICARDIAL EFFUSION There is no pleural effusion. There is no pericardial effusion. <Conclusion> The left ventricle is normal size. There is mild to moderate concentric left ventricular hypertrophy. The systolic function is moderately impaired.EF-35% Mitral regurgitation is mild to moderate. There is mild tricuspid regurgitation.RVSP-23 mmof Hg. The IVC is normal in size and collapses >50% with inspiration. There is no pericardial effusion.
[2018-02-05 18:46] VITALS: TEMP 98.3
--- NOTE | 2018-02-05 23:50 | CARD ---
APPROVED REPORT Date of service: 02/05/2018 EKG Measurement Heart [id number] <Conclusion> Sinus rhythm with 1st degree AV block with premature ventricular complexes Right bundle branch block Left anterior fascicular block Bifascicular block Abnormal ECG
--- NOTE | 2018-02-06 00:20 | DS ---
HISTORY OF PRESENT ILLNESS: The patient is a 77 years old who came with chest pain, underwent cardiac cath and had angioplasty done, was evaluated by Dr. Hoffmann and is cleared for discharge; however, the patient was evaluated by Physical Therapy, he is not fit to go home, he needs subacute rehab and gait training. PAST MEDICAL HISTORY: Significant for: 1. Cholelithiasis. 2. Chronic AFib. 3. Coronary artery disease. 4. Hypothyroidism. 5. History of multiple sclerosis. 6 Hyperlipidemia. 7. Hearing impairment. 8. COPD. HOSPITAL COURSE: The patient was taken to dairy lab technician, had percutaneous angioplasty done of obtuse marginal and the patient has non-ST elevation TN. PHYSICAL EXAMINATION: GENERAL: He is awake, alert, oriented, and communicative. VITAL SIGNS: The patient is afebrile, pulse 76, respirations 18, blood pressure 152/66. LUNGS: Bilateral fair airflow. No rhonchi or crackles. HEART: S1 and S2 audible, regular, rate controlled. ABDOMEN: Soft. Nontender. No rebound. No guarding. NEUROLOGIC: The patient is awake, alert, oriented, and communicative. LABORATORY EXAM: WBC 14.5, hemoglobin 10.5, hematocrit 35.3, platelet 391. Chemistry; sodium 141, potassium 4,chloride 101, CO2 of 33, BUN 33, creatinine 1.4, blood sugar 110. AST 155, ALT 64. His troponin is 12.30. Digoxin level is 1.4. ASSESSMENT: 1. Chest pain and abdominal pain. 2. Status post angioplasty of obtuse marginal. 3. Chronic obstructive pulmonary disease. 4. Chronic atrial fibrillation. 5. Hypertension. 6. Hyperlipidemia. 7. History of multiple sclerosis. PLAN: The patient is going to be discharged, arrangement is being made for subacute rehab. Once arrangement is made, the patient will be discharge to subacute rehab today. Rn Referral have been contacted, Skyla is working . Eileen Florez MD
[2018-02-06 06:22] LABS: EOS % 0.1 % (1.5-5.0); GRAN # 9.08 (1.4-6.5); GRAN % 71.8 % (50.0-68.0); HEMOGLOBIN 11.9 g/dL (14.0-18.0); LYMPH # 2.4 (1.2-3.4); LYMPH % 19.2 % (22.0-35.0); MEAN CELL VOLUME 84.9 fl (80.0-105.0); MEAN CORPUSCULAR HEMOGLOBIN 25.3 pg (25.0-35.0); MEAN CORPUSCULAR HGB CONC 29.8 g/dl (31.0-37.0); MEAN PLATELET VOLUME 9.4 fl (7.0-11.0); MONO # 1.1 (0.1-0.6); MONO % 8.9 % (1.0-6.0); RBC 4.71 10^6/uL (3.5-6.1); RED CELL DISTRIBUTION WIDTH 16.3 % (11.5-14.5); WHITE BLOOD COUNT 12.6 10^3/uL (4.5-11.0)
[2018-02-06] MEDS: Levothyroxine 175 MCG TAB PO SCH (06:22)
[2018-02-06 06:50] LABS: ALBUMIN 3.4 g/dL (3.0-4.8); ALT/SGPT 65 U/L (7-56); AST/SGOT 110 U/L (17-59); BLOOD UREA NITROGEN 33 mg/dL (7-21); CALCIUM 8.7 mg/dL (8.4-10.5); GFR NON-AFRICAN AMERICAN 59
[2018-02-06] MEDS: SACUBITRIL 24mg/VALSARTAN 26mg tab PO SCH (10:17)
[2018-02-06] MEDS: Armodafinil 250 mg Tab PO SCH (10:18)
[2018-02-06] MEDS: Tiotropium 18 mcg Cap For Inhalation IH SCH (10:19)
[2018-02-06 11:40] VITALS: PULSE 78
[2018-02-06 11:52] VITALS: BP 125/64; RESP 23; O2SAT 97
--- NOTE | 2018-02-06 12:33 | PN ---
DATE: 02/06/2018 REASON FOR CONSULTATION: Followup acute coronary syndrome, cardiomyopathy ischemic, status post PTCA, status post balloon angioplasty of OM1. SUBJECTIVE: The patient denies any chest pain, short of breath, or any palpitation. OBJECTIVE: GENERAL: Not in apparent distress, anxiously waiting to be discharged to the rehab care facility. VITAL SIGNS: Temperature afebrile, heart rate 95, blood pressure 130/80. HEENT: PERRLA. Extraocular muscles intact. NECK: Supple. No carotid bruits or thyromegaly. CHEST: Clear to auscultation. HEART: S1 and S2, regular. ABDOMEN: Soft. EXTREMITIES: Clubbing and cyanosis negative. LABORATORY DATA: WBC 12.6, hemoglobin 11, hematocrit 40, and platelet count 410. Chemistry shows sodium 140, potassium 4.3, chloride 100, carbon dioxide 34, anion gap of 10, BUN 33, creatinine 1.2. Total protein 6.9, albumin 3.4, albumin globulin ratio 1. IMPRESSION: A 77-year-old male with a past medical history significant for coronary artery disease, status post percutaneous transluminal coronary angioplasty stent to left anterior descending and right coronary artery in the past; history of chronic atrial fibrillation, on Xarelto; admitted with acute cholecystitis, sepsis; history of non-ischemic cardiomyopathy. The patient was on Xarelto for atrial fibrillation. Initially, the patient was treated with sepsis and was decided we treat it medically. The patient also ruled in for non-ST segment myocardial infarction with sepsis. History of stress test two weeks ago was abnormal and discharged. The patient presented with non-ST elevation myocardial infraction and sepsis, underwent cardiac catheterization and subsequently percutaneous transluminal coronary angioplasty of obtuse marginal 1 with plain balloon angioplasty. A stent was attempted, but because of the previous stent in left anterior descending was sticking out in the left main and precludes to take the stent down. The patient is stable and awaiting to be discharged. Yesterday, all the arrangements had been made but apparently for reason unknown the patient could not be discharged and did not go home. Possibly, he is going to some subacute rehab facility. The patient had an echo done yesterday that revealed ejection fraction 35%, [id number]-ra-hcnkcqbo mitral regurgitation, mild tricuspid regurgitation, right ventricular systolic pressure 23, no aortic stenosis, no aortic regurgitation. RECOMMENDATIONS: Continue spironolactone 25 mg daily. Continue Coreg 3.125 twice a day, digoxin 0.125 mg twice a day, Entresto / once a day, isosorbide 30 mg daily, Lasix 40 mg daily, atorvastatin 40 mg daily, Plavix 75 mg daily for four weeks only, mg daily, Xarelto 20 mg daily. The patient will be seen only two weeks upon discharge. Thank you for providing us the opportunity in taking care of patient, Tonio Dueñas. The patient is stable to be discharged from cardiology point of view. Valeria Hoffmann MD cc: Eileen Florez MD
--- NOTE | 2018-02-06 20:47 | DS ---
HISTORY OF PRESENT ILLNESS: The patient is a 77-year-old, who came to the emergency room because of chest pain and pressure, underwent cardia cath and had angioplasty done. PAST MEDICAL HISTORY: 1. The patient has history of mild dementia. 2. History of multiple sclerosis. 3. Chronic AFib. 4. Hypothyroidism. 5. Hard of hearing. 6. COPD. 7. History of coronary artery disease. 8. Hypothyroidism. 9. Cholelithiasis. The patient remained in ICU after he has balloon angioplasty of obtuse marginal . He remains stable. He was evaluated by physical therapist. He had unstable gait, high risk to fall. inpatient services director were involved and the patient is being transferred to subacute rehab today. PHYSICAL EXAMINATION: GENERAL: He looks much calm as compared to yesterday. VITAL SIGNS: He is afebrile, pulse 78, respirations 23, and blood pressure 125/64. LUNGS: Bilateral fair airflow. No rhonchi or crackle. HEART: S1 and S2 audible. ABDOMEN: Soft and nontender. No rebound. No guarding. NEUROLOGICAL: The patient is awake, alert, oriented and communicative. LABORATORY DATA: WBC is 12.6, hemoglobin 11.9, hematocrit 40, and platelet 410. Chemistry; sodium 140, potassium 4.3, chloride 100, CO2 of 34, BUN 33, and creatinine 1.2. Blood sugar of 107. His troponin was trending down and yesterday was 12.30, it was not ordered for today. ASSESSMENT AND PLAN: 1. Ischemic cardiomyopathy. 2. Coronary artery disease status post percutaneous balloon angioplasty of obtuse marginal. 3. Hypothyroidism. 4. Multiple sclerosis. 5. Chronic anemia. 6. He has history of left anterior descending and right coronary artery angioplasty in the past. 7. Chronic atrial fibrillation, on Xarelto. 8. Cholelithiasis. PLAN: The patient is being discharged to where he will receive physical therapy. He is being discharged on spironolactone 25 mg daily, Xarelto 20 mg daily, Plavix 75 mg daily, atorvastatin 40 mg daily, Lasix 40 mg daily, isosorbide 30 mg daily, Entresto 24/26 mg daily, digoxin 0.125 daily. So the patient is being discharged to . Eileen Florez MD [facility] # [id number]
== END 2018-02-06 13:52 | DRG 853 ==
LOC: ED 09:46 → ERH 12:12 → 5RNO 17:00 → OBSVTOIN 01-30 17:25 → CCU 02-03 09:33
PROVIDERS: ADMIT Internal Medicine Nephrology; ATTEND Internal Medicine Nephrology
PROC: 02703ZZ Dilation of Coronary Artery, One Artery, Percutaneous Approach (ICD-10-PCS; principal; 2018-02-04)
PROC: 4A023N7 Measurement of Cardiac Sampling and Pressure, Left Heart, Percutaneous Approach (ICD-10-PCS; 2018-02-04)
PROC: B2111ZZ Fluoroscopy of Multiple Coronary Arteries using Low Osmolar Contrast (ICD-10-PCS; 2018-02-04)
PROC: B2151ZZ Fluoroscopy of Left Heart using Low Osmolar Contrast (ICD-10-PCS; 2018-02-04)
DX: A41.9 Sepsis, unspecified organism (principal); I21.4 Non-ST elevation (NSTEMI) myocardial infarction; I13.0 Hypertensive heart and chronic kidney disease with heart failure and stage 1 through stage 4 chronic kidney disease, or unspecified chronic kidney disease; I50.22 Chronic systolic (congestive) heart failure; J44.1 Chronic obstructive pulmonary disease with (acute) exacerbation; T82.598A Other mechanical complication of other cardiac and vascular devices and implants, initial encounter; K80.20 Calculus of gallbladder without cholecystitis without obstruction; G35 Multiple sclerosis; E03.9 Hypothyroidism, unspecified; D64.9 Anemia, unspecified; I25.5 Ischemic cardiomyopathy; I25.10 Atherosclerotic heart disease of native coronary artery without angina pectoris; N18.9 Chronic kidney disease, unspecified; E78.00 Pure hypercholesterolemia, unspecified; E78.5 Hyperlipidemia, unspecified; F03.90 Unspecified dementia, unspecified severity, without behavioral disturbance, psychotic disturbance, mood disturbance, and anxiety; G47.30 Sleep apnea, unspecified; G89.29 Other chronic pain; H91.93 Unspecified hearing loss, bilateral; I08.1 Rheumatic disorders of both mitral and tricuspid valves; I25.2 Old myocardial infarction; I45.10 Unspecified right bundle-branch block; I48.2 Chronic atrial fibrillation; K21.9 Gastro-esophageal reflux disease without esophagitis; K22.70 Barrett's esophagus without dysplasia; K59.00 Constipation, unspecified; M41.9 Scoliosis, unspecified; N40.1 Benign prostatic hyperplasia with lower urinary tract symptoms; R33.8 Other retention of urine; Z66 Do not resuscitate; Z79.01 Long term (current) use of anticoagulants; Z86.010 Personal history of colon polyps; Z87.01 Personal history of pneumonia (recurrent); Z87.891 Personal history of nicotine dependence; Z90.49 Acquired absence of other specified parts of digestive tract; Z95.5 Presence of coronary angioplasty implant and graft; Z96.611 Presence of right artificial shoulder joint; R94.39 Abnormal result of other cardiovascular function study; M54.9 Dorsalgia, unspecified; Y84.8 Other medical procedures as the cause of abnormal reaction of the patient, or of later complication, without mention of misadventure at the time of the procedure

== ENCOUNTER 2018-03-14 02:39 | Inpatient (IN) | payer MEDICARE ==
[2018-03-14] MEDS ORDERED: Albuterol-Ipratrop 3 mg / 0.5 (3 ml) UD IH STA (03:02)
[2018-03-14] MEDS ORDERED: Albuterol-Ipratrop 3 mg / 0.5 (3 ml) UD ONE (03:02)
[2018-03-14] MEDS ORDERED: Morphine 2 mg/ml ISec IVP STA ×3 (03:03→22:51)
--- NOTE | 2018-03-14 03:17 | ED PDOC ---
Arrival/HPI - General Chief Complaint: Shortness Of Breath Time Seen by Provider: 03/14/18 02:54 Historian: Patient - History of Present Illness Narrative History of Present Illness (Text): 03/14/18 03:14 77 year old male, whose past medical history includes COPD, CHF, Multiple Sclerosis, hypertension, hyperlipidemia, hypothyroidism, and CAD, presents to the emergency department with COPD exacerbation. Patient states he was at home getting ready to sleep when he took his medication. Patient states symptoms worsened and believes it was exacerbated by the cold. Patient states he also has pain in his right arm from a chronic nerve issue. Patient denies any fevers, chills, headache, dizziness, abdominal pain, nausea, vomiting, diarrhea, back pain, neck pain, or any other complaint. PMD: Jamil Past Medical History - Provider Review Nursing Documentation Reviewed: Yes - Infectious Disease Hx of Infectious Diseases: None - Tetanus Immunization Tetanus Immunization: Unknown - Cardiac Hx Cardiac Disorders: Yes Hx Hypertension: Yes - Pulmonary Hx Respiratory Disorders: Yes Hx Bronchitis: Yes Hx Chronic Obstructive Pulmonary Disease (COPD): Yes Hx Pneumonia: Yes (MRSA) Hx Sleep Apnea: Yes - Neurological Hx Neurological Disorder: Yes (multiple sclerosis dx 2000) Hx Multiple Sclerosis: Yes Other/Comment: NEUROPATHY, right side weakness due to ms right leg "catches", right side weakness, falls - HEENT Hx HEENT Disorder: Yes Other/Comment: [place], currently usig left hearing aid, right one is broken - Renal Hx Renal Disorder: Yes - Endocrine/Metabolic Hx Endocrine Disorders: Yes Hx Hypothyroidism: Yes - Hematological/Oncological Hx Blood Disorders: Yes Hx Anemia: Yes (blood tranfusion x2) - Integumentary Hx Dermatological Disorder: Yes Other/Comment: dermatitis, 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 "I see a concession supervisor every year, r ft +2 pitting edema dry thisk nails, L ft +1 pitting edema dry skin thick dry toenails, laceration to eyebrows, face, head injury,rib fx's due to falls in past - Musculoskeletal/Rheumatological Hx Musculoskeletal Disorders: Yes (scoliosis) Hx Arthritis: Yes Hx Falls: Yes (multiple) Hx Fractures: Yes (ribs) Hx Osteoarthritis: Yes Hx Unsteady Gait: Yes (cane) Other/Comment: R SHOULDER ARTHROPLASTY orif r elbow, mcgill esophagus, b/l medial meniscusectomy, right femoral head/shoulder replacement, right knee swollen "needs replacement" pt stated. - Gastrointestinal Hx Gastrointestinal Disorders: Yes Hx Gall Bladder Disease: Yes (gallstones) Hx Gastroesophageal Reflux: Yes Other/Comment: esophageal stenosis, gastritis, colon polyp, barretts esophagus - Genitourinary/Gynecological Hx Genitourinary Disorders: Yes Hx Prostate Problems: Yes (BPH) Other/Comment: us due to right hydrocele, 08/20/12 epididmytis - Psychiatric Hx Emotional Abuse: No Hx Physical Abuse: No Hx Substance Use: No - Surgical History Hx Appendectomy: Yes Hx Cardiac Catheterization: Yes Hx Coronary Stent: Yes (ptca/stents x2 02/2012) Other/Comment: laparotomy, rt supraclavicular node removal, coronary artery angiogram [facility], bilateral medial meniscusectomies, rt inguinal herniorraphy, rt elbow repair OR/IF, trans urethral needle ablation prostate, r shoulder arthroplasty 08/2014, incomplete colonoscopy poor prep 04/15/14 hx polyps, excision lypoma, exploratory lap - Anesthesia Hx Anesthesia Reactions: Yes ("BLEEDING FROM AIRWAY USED") Hx Malignant Hyperthermia: No - Suicidal Assessment Feels Threatened In Home Enviroment: No Family/Social History - Physician Review Nursing Documentation Reviewed: Yes Family/Social History: No Known Family HX Smoking Status: Former Smoker Hx Alcohol Use: Yes (rare) Hx Substance Use: No Hx Substance Use Treatment: No Allergies/Home Meds Allergies/Adverse Reactions: Allergies tape Adverse Reaction (Uncoded 01/29/18 09:51) REDNESS Home Medications: Home Meds Medication Instructions Recorded Confirmed Aspirin [Ecotrin] 81 mg PO DAILY 03/14/18 03/14/18 Atorvastatin [Lipitor] 40 mg PO DAILY 03/14/18 03/14/18 Bisacodyl [Ducolax] 10 mg RC PRN PRN 03/14/18 03/14/18 Carvedilol [Coreg] 3.125 mg PO BID 03/14/18 03/14/18 Clopidogrel [Plavix] 75 mg PO DAILY 03/14/18 03/14/18 Digoxin [Lanoxin] 0.125 mg PO DAILY 03/14/18 03/14/18 Esomeprazole Magnesium [Nexium] 40 mg PO DAILY 03/14/18 03/14/18 Furosemide [Lasix] 40 mg PO DAILY 03/14/18 03/14/18 Guaifenesin [Coughtab] 200 mg PO DAILY 03/14/18 03/14/18 Isosorbide Mononitrate ER [Imdur 30 mg PO DAILY 03/14/18 03/14/18 ER] Levalbuterol [Xopenex] 45 mcg IH QID 03/14/18 03/14/18 Levothyroxine [Synthroid] 88 mcg PO DAILY 03/14/18 03/14/18 Lisinopril [Zestril] 2.5 mg PO DAILY 03/14/18 03/14/18 Mefloquine [Lariam] 250 mg PO QD7 03/14/18 03/14/18 Mirtazapine [Remeron] 15 mg PO HS 03/14/18 03/14/18 Modafinil 200 mg PO DAILY 03/14/18 03/14/18 Oxycodone HCl/Acetaminophen 1 tab PO Q6 PRN 03/14/18 03/14/18 [Endocet 325 mg-7.5 mg] Polyethylene Glycol 3350 [Miralax] 17 gm PO DAILY 03/14/18 03/14/18 Rivaroxaban [Xarelto] 15 mg PO DAILY 03/14/18 03/14/18 Sacubitril/Valsartan [Entresto 24 1 tab PO BID 03/14/18 03/14/18 mg-26 mg] Temazepam [Restoril] 30 mg PO HS 03/14/18 03/14/18 Umeclidinium [place] [Incruse 62.5 mcg IH DAILY 03/14/18 03/14/18 Ellipta] predniSONE [Prednisone] 20 mg PO DAILY 03/14/18 03/14/18 Review of Systems - Physician Review All systems were reviewed & negative as marked: Yes - Review of Systems Constitutional: absent: Fevers, Night Sweats Respiratory: SOB Gastrointestinal: absent: Abdominal Pain, Diarrhea, Nausea, Vomiting Musculoskeletal: absent: Back Pain, Neck Pain Neurological: absent: Headache, Dizziness Physical Exam Vital Signs Reviewed: Yes Vital Signs Temp Pulse Resp BP Pulse Ox 03/14/18 02:58 100.8 F H 117 H 24 150/98 H 98 Temperature: Febrile Blood Pressure: Hypertensive Pulse: Tachycardic Respiratory Rate: Normal Appearance: Positive for: Well-Appearing, Non-Toxic, Comfortable Pain Distress: None Mental Status: Positive for: Alert and Oriented X 3 - Systems Exam Head: Present: Atraumatic, Normocephalic Pupils: Present: PERRL Extroacular Muscles: Present: EOMI Conjunctiva: Present: Normal Mouth: Present: Moist Mucous Membranes Neck: Present: Normal Range of Motion Respiratory/Chest: Present: Rales, Rhonchi Cardiovascular: Present: Regular Rate and Rhythm, Normal S1, S2. No: Murmurs Abdomen: No: Tenderness, Distention, Peritoneal Signs Back: Present: Normal Inspection Upper Extremity: Present: Normal Inspection. No: Cyanosis, Edema Lower Extremity: Present: Normal Inspection. No: Edema Neurological: Present: GCS=15, CN II-XII Intact, Speech Normal Skin: Present: Warm, Dry, Normal Color. No: Rashes Psychiatric: Present: Alert, Oriented x 3, Normal Insight, Normal Concentration Medical Decision Making ED Course and Treatment: 03/14/18 03:20 Impression: 77 year old male presents with shortness of breath Plan: -- VBG -- EKG -- CMP, BNP -- CBC, Platelets -- Chest X-ray -- Duoneb -- Morphine -- Solumedrol -- Blood and Urine Cultures -- Urinalysis -- Reassess and disposition Prior Visits: Notes and results from previous visits were reviewed. Progress Notes: 03/14/18 03:58 Chest X-ray reviewed by me, shows: CHF 03/14/18 04:[address] Osborne who accepts patient to his service - RAD Interpretation Radiology Orders: 03/14/18 03:01 CHEST PORTABLE [RAD] Stat - Medication Orders Current Medication Orders: Discontinued Medications Albuterol/Ipratropium (Duoneb 3 Mg/0.5 Mg (3 Ml) Ud) 3 ml IH ONCE STA Stop: 03/14/18 03:03 Methylprednisolone (Solu-Medrol) 125 mg IVP ONCE ONE Stop: 03/14/18 03:03 Morphine Sulfate (Morphine) 2 mg IVP STAT STA Stop: 03/14/18 03:04 - Scribe Statement The provider has reviewed the documentation as recorded by the Val Khan Provider Scribe Attestation: All medical record entries made by the Scribe were at my direction and personally dictated by me. I have reviewed the chart and agree that the record a ccurately reflects my personal performance of the history, physical exam, medical decision making, and the department course for this patient. I have also personally directed, reviewed, and agree with the discharge instructions and disposition. Disposition/Present on Arrival - Present on Arrival Any Indicators Present on Arrival: No History of DVT/PE: No History of Uncontrolled Diabetes: No Urinary Catheter: No History of Decub. Ulcer: No History Surgical Site Infection Following: None - Disposition Have Diagnosis and Disposition been Completed?: Yes Diagnosis: CHF (congestive heart failure), COPD (chronic obstructive pulmonary disease), Pneumonia Disposition: HOSPITALIZED Disposition Time: 04:18 Patient Plan: Admission Patient Problems: Current Active Problems Problem Status Onset Pneumonia Acute CHF (congestive heart failure) Chronic COPD (chronic obstructive pulmonary disease) Chronic Condition: STABLE Discharge Instructions (ExitCare): Heart Failure (ED) Referrals: Jake Negron MD [Primary Care Provider] - Follow up with primary Forms: [employer] (Danish)
[2018-03-14 03:21] LABS: BASO # 0.05 K/mm3 (0.0-2.0); BASO % 0.3 % (0.0-3.0); EOS # 0.3 (0.0-0.7); EOS % 1.8 % (1.5-5.0); HEMOGLOBIN 10.3 g/dL (14.0-18.0); LYMPH # 3.2 (1.2-3.4); LYMPH % 21.7 % (22.0-35.0); MEAN CELL VOLUME 86.2 fl (80.0-105.0); MEAN CORPUSCULAR HEMOGLOBIN 25.9 pg (25.0-35.0); MEAN PLATELET VOLUME 9.3 fl (7.0-11.0); MONO # 1.1 (0.1-0.6); MONO % 7.1 % (1.0-6.0); RBC 3.98 10^6/uL (3.5-6.1); RED CELL DISTRIBUTION WIDTH 18.8 % (11.5-14.5); WHITE BLOOD COUNT 14.8 10^3/uL (4.5-11.0)
[2018-03-14 03:23] LABS: INR 2.15; PARTIAL THROMBOPLASTIN TIME 39.9 Seconds (26.9-38.3); PROTHROMBIN TIME 23.9 SECONDS (9.4-12.5)
[2018-03-14 03:24] LABS: ALB/GLOB RATIO 1.1 (1.1-1.8); ALBUMIN 3.9 g/dL (3.0-4.8); ALT/SGPT 33 U/L (7-56); AST/SGOT 35 U/L (17-59); BLOOD UREA NITROGEN 27 mg/dL (7-21); CALCIUM 9.4 mg/dL (8.4-10.5); GFR NON-AFRICAN AMERICAN > 60
[2018-03-14 03:31] LABS: B-TYPE NATRIURETIC PEPTIDE 13500 pg/mL (0-450)
[2018-03-14] MEDS ORDERED: Morphine 4 mg/ml ISec ONE (04:00)
[2018-03-14] MEDS ORDERED: Morphine 4 mg/ml ISec IVP STA (04:14)
[2018-03-14] MEDS ORDERED: Azithromycin 500MG/NS 250ml 500 MG/250 ML BAG IV STA (04:15)
[2018-03-14] MEDS ORDERED: cefTRIAXone 1 gm 1 GM/100 ML BAG IV STA (04:15)
[2018-03-14 04:45] LABS: VENOUS BLOOD GAS BASE EXCESS -0.6 mmol/L (0.0-2.0); VENOUS BLOOD GAS PO2 63 mm/Hg (30-55); VENOUS BLOOD PH 7.35 (7.32-7.43)
[2018-03-14] MEDS: Albuterol-Ipratrop 3 mg / 0.5 (3 ml) UD IH PRN (05:21)
[2018-03-14 05:28] LABS: URINE BILIRUBIN NEGATIVE (NEGATIVE); URINE BLOOD NEGATIVE (NEGATIVE); URINE GLUCOSE (UA) NEGATIVE (NEGATIVE); URINE LEUKOCYTE ESTERASE TRACE Leu/uL (NEGATIVE); URINE PROTEIN TRACE mg/dL (<30 mg/dL); URINE UROBILINOGEN 0.2 E.U./dL (<1 E.U./dL)
[2018-03-14 05:41] LABS: URINE COLOR YELLOW (YELLOW)
[2018-03-14 05:42] LABS: URINE APPEARANCE CLEAR (CLEAR)
[2018-03-14 05:46] LABS: URINE RBC 0 - 2 /hpf (0-2)
--- NOTE | 2018-03-14 06:38 | CP.PCM.HP ---
<Briseida Anderson - Last Filed: 03/14/18 14:32> History of Present Illness - History of Present Illness History of Present Illness: 77 y/o M with PMHx HTN, COPD, CHF, CAD (s/p 2 stents [LAD and RCA] 5-6 year sago), Afib (on xarelto), Hypothyroidism, MS presented with dyspnea on exertion. Patient reports he woke up the night prior to admission and felt short of breath when walking to and from the bathroom [~15 to 20 feet]. 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 Patient also endorses orthopnea [3 pillows] but denies any swelling in his b/l lower extremities. Patient was recently seen at [facility] in Jan 2018 for NSTEMI and sepsis and had a cardiac cath by Dr. Hoffmann. Patient was discharged to [address] for cardiac rehab for 1-2 weeks and recently discharged home on Saturday03/04/18. Since then patient has been seen by Dr. Hoffmann's office and had an EKG done which was unremarkable as per patient. On ROS patient admitted to nausea, constipation [BM every 2-3 days], cough and urinary urgency. He denies any headache, dizziness, palpitations, abd pain, vomiting, pain/swelling in his legs b/l. Of note, patient requesting to NOT be admitted to Telemetry floor and would rather be on med/surg or remote TELE. PMHx: HTN, COPD, CHF, CAD (s/p stent), Afib (on xarelto), Hypothyroidism, MS PSurgHx: appendectomy, Right supra-clavicular node removal, b/l medial meniscusectomies, right inguinal herniorraphy, and right elbow repair OR/IF Allergies: tape Meds: see MAR FHx: non-contributory Present on Admission - Present on Admission Any Indicators Present on Admission: No Review of Systems - Review of Systems All systems: reviewed and no additional remarkable complaints except Review of Systems: as per HPI Past Patient History - Infectious Disease Hx of Infectious Diseases: None - Tetanus Immunizations Tetanus Immunization: Unknown - Past Medical History & Family History Past Medical History?: Yes - Past Social History Smoking Status: Former Smoker - CARDIAC Hx Cardiac Disorders: Yes Hx Hypertension: Yes - PULMONARY Hx Respiratory Disorders: Yes Hx Bronchitis: Yes Hx Chronic Obstructive Pulmonary Disease (COPD): Yes Hx Pneumonia: Yes (MRSA) Hx Sleep Apnea: Yes - NEUROLOGICAL Hx Neurological Disorder: Yes (multiple sclerosis dx 2000) Hx Multiple Sclerosis: Yes Other/Comment: NEUROPATHY, right side weakness due to ms right leg "catches", right side weakness, falls - HEENT Hx HEENT Problems: Yes Other/Comment: [place], currently usig left hearing aid, right one is broken - RENAL Hx Chronic Kidney Disease: Yes - ENDOCRINE/METABOLIC Hx Endocrine Disorders: Yes Hx Hypothyroidism: Yes - HEMATOLOGICAL/ONCOLOGICAL Hx Blood Disorders: Yes Hx Anemia: Yes (blood tranfusion x2) - INTEGUMENTARY Hx Dermatological Problems: Yes Other/Comment: dermatitis, 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 "I see a human resources analyst every year, r ft +2 pitting edema dry thisk nails, L ft +1 pitting edema dry sk in thick dry toenails, laceration to eyebrows, face, head injury,rib fx's due to falls in past - MUSCULOSKELETAL/RHEUMATOLOGICAL Hx Musculoskeletal Disorders: Yes (scoliosis) Hx Arthritis: Yes Hx Falls: Yes (multiple) Hx Fractures: Yes (ribs) Hx Osteoarthritis: Yes Hx Unsteady Gait: Yes (cane) Other/Comment: R SHOULDER ARTHROPLASTY orif r elbow, mcgill esophagus, b/l medial meniscusectomy, right femoral head/shoulder replacement, right knee swollen "needs replacement" pt stated. - GASTROINTESTINAL Hx Gastrointestinal Disorders: Yes Hx Gall Bladder Disease: Yes (gallstones) Hx Gastroesophageal Reflux: Yes Other/Comment: esophageal stenosis, gastritis, colon polyp, barretts esophagus - GENITOURINARY/GYNECOLOGICAL Hx Genitourinary Disorders: Yes Hx Prostate Problems: Yes (BPH) Other/Comment: us due to right hydrocele, 08/20/12 epididmytis - PSYCHIATRIC Hx Emotional Abuse: No Hx Physical Abuse: No Hx Substance Use: No - SURGICAL HISTORY Hx Appendectomy: Yes Hx Cardiac Catheterization: Yes Hx Coronary Stent: Yes (ptca/stents x2 02/2012) Other/Comment: laparotomy, rt supraclavicular node removal, coronary artery angiogram [facility], bilateral medial meniscusectomies, rt inguinal herniorraphy, rt elbow repair OR/IF, trans urethral needle ablation prostate, r shoulder arthroplasty 08/2014, incomplete colonoscopy poor prep 04/15/14 hx polyps, excision lypoma, exploratory lap - ANESTHESIA Hx Anesthesia Reactions: Yes ("BLEEDING FROM AIRWAY USED") Hx Malignant Hyperthermia: No Meds Allergies/Adverse Reactions: Allergies Allergy/AdvReac Type Severity Reaction Status Date / Time tape AdvReac REDNESS Uncoded 03/14/18 16:24 Physical Exam - Constitutional Appears: Non-toxic, No Acute Distress - Head Exam Head Exam: ATRAUMATIC, NORMAL INSPECTION, NORMOCEPHALIC - Eye Exam Eye Exam: EOMI, Normal appearance, PERRL. absent: Conjunctival injection, Scleral icterus Pupil Exam: NORMAL ACCOMODATION - ENT Exam ENT Exam: Mucous Membranes Dry - Neck Exam Neck exam: Positive for: Full Rom, Normal Inspection. Negative for: Tenderness - Respiratory Exam Respiratory Exam: Rales, Rhonchi, NORMAL BREATHING PATTERN. absent: Accessory Muscle Use, Wheezes, Respiratory Distress - Cardiovascular Exam Cardiovascular Exam: Tachycardia, Irregular Rhythm, +S1, +S2 - GI/Abdominal Exam GI & Abdominal Exam: Normal Bowel Sounds, Soft. absent: Firm, Guarding, Rigid, Tenderness - Rectal Exam Rectal Exam: Deferred - Extremities Exam Extremities exam: Positive for: normal capillary refill, normal inspection, pedal pulses present. Negative for: pedal edema - Back Exam Back exam: NORMAL INSPECTION. absent: rash noted, tenderness - Neurological Exam Neurological exam: Alert, CN II-XII Intact, Oriented x3 - Psychiatric Exam Psychiatric exam: Normal Affect, Normal Mood - Skin Skin Exam: Dry, Intact, Normal Color, Warm Results - Vital Signs Recent Vital Signs: Last Vital Signs Temp 98.3 F 03/14/18 06:28 Pulse 105 H 03/14/18 06:28 Resp 18 03/14/18 06:28 BP 125/62 03/14/18 06:28 Pulse Ox 91 L 03/14/18 06:28 - Labs Result Diagrams: 03/14/18 02:55 03/14/18 02:55 Labs: Laboratory Results - last 24 hr 03/14/18 03/14/18 03/14/18 02:55 02:55 02:55 WBC 14.8 H RBC 3.98 Hgb 10.3 L Hct 34.3 L MCV 86.2 MCH 25.9 MCHC 30.0 L RDW 18.8 H Plt Count 381 MPV 9.3 Neut % (Auto) 69.1 H Lymph % (Auto) 21.7 L [place] % (Auto) 7.1 H Eos % (Auto) 1.8 Baso % (Auto) 0.3 Lymph # (Auto) 3.2 [place] # (Auto) 1.1 H Eos # (Auto) 0.3 Baso # (Auto) 0.05 Absolute Neuts (auto) 10.25 H PT 23.9 H INR 2.15 APTT 39.9 H pO2 VBG pH VBG pCO2 VBG HCO3 VBG Total CO2 VBG O2 Sat (Calc) VBG Base Excess VBG Potassium Glucose Lactate FiO2 Sodium 141 Potassium 4.0 Chloride 107 Carbon Dioxide 25 Anion Gap 12 BUN 27 H Creatinine 0.9 Est GFR ( Amer) > 60 Est GFR (Non-Af Amer) > 60 Random Glucose 115 H Calcium 9.4 Total Bilirubin 0.6 AST 35 ALT 33 Alkaline Phosphatase 105 NT-Pro-B Natriuret Pep 47512 H Total Protein 7.3 Albumin 3.9 Globulin 3.5 Albumin/Globulin Ratio 1.1 Venous Blood Potassium Urine Color Urine Appearance Urine pH Ur Specific [place] Urine Protein Urine Glucose (UA) Urine Ketones Urine Blood Urine Nitrate Urine Bilirubin Urine Urobilinogen Ur Leukocyte Esterase Urine RBC Urine WBC Ur Epithelial Cells Urine Bacteria 03/14/18 03/14/18 04:15 05:00 WBC RBC Hgb Hct MCV MCH MCHC RDW Plt Count MPV Neut % (Auto) Lymph % (Auto) [place] % (Auto) Eos % (Auto) Baso % (Auto) Lymph # (Auto) [place] # (Auto) Eos # (Auto) Baso # (Auto) Absolute Neuts (auto) PT INR APTT pO2 63 H VBG pH 7.35 VBG pCO2 46.0 VBG HCO3 25.4 VBG Total CO2 26.8 VBG O2 Sat (Calc) 94.9 H VBG Base Excess -0.6 L VBG Potassium 4.3 Glucose 120 H Lactate 1.8 FiO2 21.0 Sodium 141.0 Potassium Chloride 110.0 H Carbon Dioxide Anion Gap BUN Creatinine Est GFR ( Amer) Est GFR (Non-Af Amer) Random Glucose Calcium Total Bilirubin AST ALT Alkaline Phosphatase NT-Pro-B Natriuret Pep Total Protein Albumin Globulin Albumin/Globulin Ratio Venous Blood Potassium 4.3 Urine Color Yellow Urine Appearance Clear Urine pH 6.0 Ur Specific [place] 1.025 Urine Protein Trace H Urine Glucose (UA) Negative Urine Ketones Negative Urine Blood Negative Urine Nitrate Negative Urine Bilirubin Negative Urine Urobilinogen 0.2 Ur Leukocyte Esterase Trace H Urine RBC 0 - 2 Urine WBC 1 - 3 Ur Epithelial Cells 1 - 3 Urine Bacteria None Assessment & Plan - Assessment and Plan (Free Text) Assessment: - NSTEMI - Acute on Chronic Systolic CHF exacerbation - Suspect HCAP - Chronic COPD - CAD s/p 2 stents - Chronic Afib on Xarelto - Hypothyroidism - Multiple Sclerosis - HTN - Chronic constipation Plan: Patient admitted to [facility]. Patient's blood work, vitals, and imaging reviewed. Patient's troponin on admission elevated at 0.16. Repeat troponin 0.31. Dr Hoffmann cardiology on board and aware. EKG ordered with elevated trop. Patient on ASA, Plavix, Xarelto, Coreg, and Lipitor. Patient's CXR and elevate proBNP and clinical signs also concerning for acute on chronic systolic CHF exacerbation. Patient's echo Jan 2018 revealed EF 35% with mild to mod concentric LVH, LV normal size, mitral regurg mild to modertae, mild tricuspid regurg RVSP 23mmHg. Patient on entresto however BNP from prior admission 4920 and is now significantly higher. Will diurese with Lasix 40q8 and continue home meds Lisinopril, Entresto, Digoxin, and Coreg. Patient also has Imdur on board. Patient's elevated WBC and CXR with b/l lower lobe alveolar-type infiltrates adn b/l effusions concerning for HCAP. f/u Procalcitonin, urine legionella, and rapid flu. Patient started on Vancomycin 1q12 and Cefepime 2q8 for coverage of HCAP. f/u blood, urine, sputum, and MRSA nares. Patient has Duoneb on board for chronic copd however suspect presenting symptoms likely more cardiac in nature than pulm. Will f/u lipid panel, HgbA1c, TSH. Patient on ASA, Plavix for CAD s/p 2 stents and on Xarelto for Afib. Continue home synthroid for hypothyroidism and miralax and dulcolax for chronic constipation. Patient on home Remeron. Maintain strict Is and Os, HHD with fluid restriction, and measure daily weights. Discussed with Dr.Choudhry Briseida Anderson PGY3 <DylonAp S - Last Filed: 03/14/18 19:21> Results - Vital Signs Recent Vital Signs: Last Vital Signs Temp 98.8 F 03/14/18 16:00 Pulse 60 03/14/18 17:46 Resp 19 03/14/18 16:27 BP 92/40 L 03/14/18 17:31 Pulse Ox 96 03/14/18 16:00 - Labs Result Diagrams: 03/14/18 02:55 03/14/18 02:55 Labs: Laboratory Results - last 24 hr 03/14/18 03/14/18 03/14/18 02:55 02:55 02:55 WBC 14.8 H RBC 3.98 Hgb 10.3 L Hct 34.3 L MCV 86.2 MCH 25.9 MCHC 30.0 L RDW 18.8 H Plt Count 381 MPV 9.3 Neut % (Auto) 69.1 H Lymph % (Auto) 21.7 L [place] % (Auto) 7.1 H Eos % (Auto) 1.8 Baso % (Auto) 0.3 Lymph # (Auto) 3.2 [place] # (Auto) 1.1 H Eos # (Auto) 0.3 Baso # (Auto) 0.05 Absolute Neuts (auto) 10.25 H PT 23.9 H INR 2.15 APTT 39.9 H pO2 VBG pH VBG pCO2 VBG HCO3 VBG Total CO2 VBG O2 Sat (Calc) VBG Base Excess VBG Potassium Glucose Lactate FiO2 Sodium 141 Potassium 4.0 Chloride 107 Carbon Dioxide 25 Anion Gap 12 BUN 27 H Creatinine 0.9 Est GFR ( Amer) > 60 Est GFR (Non-Af Amer) > 60 Random Glucose 115 H Hemoglobin A1c Calcium 9.4 Total Bilirubin 0.6 AST 35 ALT 33 Alkaline Phosphatase 105 Troponin I NT-Pro-B Natriuret Pep 34131 H Total Protein 7.3 Albumin 3.9 Globulin 3.5 Albumin/Globulin Ratio 1.1 Triglycerides Cholesterol LDL Cholesterol Direct HDL Cholesterol Free T4 TSH 3rd Generation Venous Blood Potassium Urine Color Urine Appearance Urine pH Ur Specific [place] Urine Protein Urine Glucose (UA) Urine Ketones Urine Blood Urine Nitrate Urine Bilirubin Urine Urobilinogen Ur Leukocyte Esterase Urine RBC Urine WBC Ur Epithelial Cells Urine Bacteria Influenza Typ A,B (EIA) 03/14/18 03/14/18 03/14/18 02:55 02:55 02:55 WBC RBC Hgb Hct MCV MCH MCHC RDW Plt Count MPV Neut % (Auto) Lymph % (Auto) [place] % (Auto) Eos % (Auto) Baso % (Auto) Lymph # (Auto) [place] # (Auto) Eos # (Auto) Baso # (Auto) Absolute Neuts (auto) PT INR APTT pO2 VBG pH VBG pCO2 VBG HCO3 VBG Total CO2 VBG O2 Sat (Calc) VBG Base Excess VBG Potassium Glucose Lactate FiO2 Sodium Potassium Chloride Carbon Dioxide Anion Gap BUN Creatinine Est GFR ( Amer) Est GFR (Non-Af Amer) Random Glucose Hemoglobin A1c 6.2 Calcium Total Bilirubin AST ALT Alkaline Phosphatase Troponin I 0.16 H* D NT-Pro-B Natriuret Pep Total Protein Albumin Globulin Albumin/Globulin Ratio Triglycerides 68 Cholesterol 214 H LDL Cholesterol Direct 92 HDL Cholesterol 77 H Free T4 1.38 TSH 3rd Generation 10.20 H Venous Blood Potassium Urine Color Urine Appearance Urine pH Ur Specific [place] Urine Protein Urine Glucose (UA) Urine Ketones Urine Blood Urine Nitrate Urine Bilirubin Urine Urobilinogen Ur Leukocyte Esterase Urine RBC Urine WBC Ur Epithelial Cells Urine Bacteria Influenza Typ A,B (EIA) 03/14/18 03/14/18 03/14/18 04:15 05:00 11:30 WBC RBC Hgb Hct MCV MCH MCHC RDW Plt Count MPV Neut % (Auto) Lymph % (Auto) [place] % (Auto) Eos % (Auto) Baso % (Auto) Lymph # (Auto) [place] # (Auto) Eos # (Auto) Baso # (Auto) Absolute Neuts (auto) PT INR APTT pO2 63 H VBG pH 7.35 VBG pCO2 46.0 VBG HCO3 25.4 VBG Total CO2 26.8 VBG O2 Sat (Calc) 94.9 H VBG Base Excess -0.6 L VBG Potassium 4.3 Glucose 120 H Lactate 1.8 FiO2 21.0 Sodium 141.0 Potassium Chloride 110.0 H Carbon Dioxide Anion Gap BUN Creatinine Est GFR ( Amer) Est GFR (Non-Af Amer) Random Glucose Hemoglobin A1c Calcium Total Bilirubin AST ALT Alkaline Phosphatase Troponin I 0.31 H* D NT-Pro-B Natriuret Pep Total Protein Albumin Globulin Albumin/Globulin Ratio Triglycerides Cholesterol LDL Cholesterol Direct HDL Cholesterol Free T4 TSH 3rd Generation Venous Blood Potassium 4.3 Urine Color Yellow Urine Appearance Clear Urine pH 6.0 Ur Specific [place] 1.025 Urine Protein Trace H Urine Glucose (UA) Negative Urine Ketones Negative Urine Blood Negative Urine Nitrate Negative Urine Bilirubin Negative Urine Urobilinogen 0.2 Ur Leukocyte Esterase Trace H Urine RBC 0 - 2 Urine WBC 1 - 3 Ur Epithelial Cells 1 - 3 Urine Bacteria None Influenza Typ A,B (EIA) 03/14/18 17:39 WBC RBC Hgb Hct MCV MCH MCHC RDW Plt Count MPV Neut % (Auto) Lymph % (Auto) [place] % (Auto) Eos % (Auto) Baso % (Auto) Lymph # (Auto) [place] # (Auto) Eos # (Auto) Baso # (Auto) Absolute Neuts (auto) PT INR APTT pO2 VBG pH VBG pCO2 VBG HCO3 VBG Total CO2 VBG O2 Sat (Calc) VBG Base Excess VBG Potassium Glucose Lactate FiO2 Sodium Potassium Chloride Carbon Dioxide Anion Gap BUN Creatinine Est GFR ( Amer) Est GFR (Non-Af Amer) Random Glucose Hemoglobin A1c Calcium Total Bilirubin AST ALT Alkaline Phosphatase Troponin I NT-Pro-B Natriuret Pep Total Protein Albumin Globulin Albumin/Globulin Ratio Triglycerides Cholesterol LDL Cholesterol Direct HDL Cholesterol Free T4 TSH 3rd Generation Venous Blood Potassium Urine Color Urine Appearance Urine pH Ur Specific [place] Urine Protein Urine Glucose (UA) Urine Ketones Urine Blood Urine Nitrate Urine Bilirubin Urine Urobilinogen Ur Leukocyte Esterase Urine RBC Urine WBC Ur Epithelial Cells Urine Bacteria Influenza Typ A,B (EIA) Negative for flu a/b Assessment & Plan - Assessment and Plan (Free Text) Plan: Pt seen and examined by me. I have reviewed the note of the medical aide and I agree with it. I have discussed the assessment and plan with the resident. I have reviewed the medications and the last labs.Pt with NSTEMI and is on ASA. Pt will need IV Abx for HCAP. He is on Lasix for CHF due to systolic dysfunciton. WIll start Duoneb. Lipitor for dyslipidemia. Dr Hoffmann on consult for NSTEMI. A fib controlled with Xerlto. Synthroid for hypothyroidism.
[2018-03-14] MEDS ORDERED: Oxycodone/Acetaminophen 10/325 mg Tab PO STA (06:40)
[2018-03-14 07:58] LABS: FREE T4 1.38 ng/dL (0.78-2.19)
[2018-03-14 08:24] LABS: TROPONIN I 0.16 ng/mL
--- NOTE | 2018-03-14 09:49 | RAD ---
Date of service: 03/14/2018 HISTORY: Sepsis Patient COMPARISON: Comparison chest dated 02/04/2018 FINDINGS: LUNGS: Re demonstrated are mild pulmonary venous congestive changes with bilateral lower lobe alveolar-type infiltrates and bilateral effusions. PLEURA: No significant pleural effusion identified, no pneumothorax apparent. CARDIOVASCULAR: Mild aortic atherosclerotic calcification present. Cardiomegaly. OSSEOUS STRUCTURES: No significant change. VISUALIZED UPPER ABDOMEN: Normal. OTHER FINDINGS: None. IMPRESSION: Re demonstrated are of pulmonary venous congestive changes with bilateral lower lobe alveolar-type infiltrates and bilateral effusions.
[2018-03-14] MEDS ORDERED: SACUBITRIL 24mg/VALSARTAN 26mg tab PO SCH (10:00)
[2018-03-14] MEDS: Levothyroxine 88 MCG TAB PO SCH (10:00)
[2018-03-14] MEDS: SACUBITRIL 24mg/VALSARTAN 26mg tab PO SCH ×2 (10:00→17:31)
[2018-03-14] MEDS ORDERED: Digoxin 125 mcg (0.125 mg) Tab PO SCH (10:00)
[2018-03-14] MEDS: POLYETHYLENE GLYCOL 3350 17 GM/Dose PACKET PO SCH (10:02)
--- NOTE | 2018-03-14 11:24 | CARD ---
APPROVED REPORT Date of service: 03/14/2018 EKG Measurement Heart [id number] <Conclusion> Sinus tachycardia with occasional premature ventricular complexes Right bundle branch block Inferior infarct, age undetermined Abnormal ECG
[2018-03-14] MEDS: Digoxin 125 mcg (0.125 mg) Tab PO SCH (14:57)
[2018-03-14] MEDS ORDERED: Vancomycin 1gm in NS 250ml 1 GM/250 ML BAG IVPB SCH (15:15)
[2018-03-14] MEDS: Cefepime IV 2 gm in NS 2 GM/100 ML BAG IVPB SCH ×2 (16:11→23:20)
[2018-03-14] MEDS ORDERED: Pneumococcal 23-Valent Vaccine IM ONE (17:01)
[2018-03-14] MEDS ORDERED: Influenza Vaccine 60 mcg/0.5 mL SYR (4YR UP) IM ONE (17:01)
[2018-03-14 17:02] VITALS: BMI 18.6
--- NOTE | 2018-03-14 20:12 | CARD ---
APPROVED REPORT Date of service: 03/14/2018 EKG Measurement Heart [id number] <Conclusion> Poor data quality, interpretation may be adversely affected Sinus rhythm with 1st degree AV block with occasional premature ventricular complexes Right bundle branch block Left anterior fascicular block Bifascicular block Inferior infarct, age undetermined T wave abnormality, consider lateral ischemia Abnormal ECG
[2018-03-14] MEDS: Albuterol-Ipratrop 3 mg / 0.5 (3 ml) UD IH SCH (23:25)
[2018-03-15] MEDS: Vancomycin 1gm in NS 250ml 1 GM/250 ML BAG IVPB SCH ×2 (00:39→10:00)
--- NOTE | 2018-03-15 02:43 | CON ---
DATE: 03/14/2018 REASON FOR CONSULTATION: Shortness of breath, congestive heart failure, and positive troponin. BRIEF CLINICAL HISTORY: A 77-year-old male with past medical history significant for COPD; coronary artery disease; multiple sclerosis; advance CHF; hypertension; hyperlipidemia; chronic atrial fibrillation, on anticoagulation Xarelto; history of recently coronary intervention, was in care home, came in with complaining of shortness of breath, went to the bathroom, became short of breath, and came to the emergency room. Denies any chest pain. Denies any palpitations. PAST MEDICAL HISTORY: Significant for coronary artery disease, status post angioplasty many years ago by Dr. Lopez and recently coronary intervention was done. On 02/03/2018, that is [facility] because of that the patient admitted at that time with cholecystitis and non-ST segment myocardial infarction where the patient had plain balloon angioplasty of proximal circumflex and plain balloon angioplasty of OM1. Prior to that the patient had stent done in 2012. Stent could not be deployed because of the previous stent in LAD was obstructing the stent in the left main. The previous stent was sticking out into the left main and is unable to take the stent to the circumflex. Past history is also significant for non-STEMI when the patient presented with acute cholecystitis, history of COPD, history of multiple sclerosis, history of cholecystitis and abdominal pain with positive troponin last admission, history of hypertension, history of early advanced COPD, and history of chronic atrial fibrillation, on Xarelto. PREVIOUS CARDIAC WORKUP FOLLOWS: The patient had a non-STEMI on last admission with acute cholecystitis and the patient underwent cardiac catheterization on 02/03/2018 Gantt Shayy that revealed codominant system left main involving significant disease, patent stent noted in the proximal portion sticking out into the left main, and 50% to 60% stenosis in the mid segment of LAD was noted. Circumflex has high grade stenosis 95% proximal and 90% OM1 stenosis is noted. RCA has distal 60% to 70% stenosis noted. Left ventricular ejection fraction is 35%, EDP was in the range of 20. The patient had successful PTCA of proximal circumflex and OM1 was done, stent could not be deployed because previously placed stent in the proximal LAD was sticking out of the left main and unable to take the stent down into the circumflex and since it is plain balloon angioplasty dated 02/04/2018, so the recommendation was continue Plavix for 4 weeks followed by Xarelto and baby aspirin. LV function suggested to reassess in 3 to 6 month for need for pacemaker and defibrillator, this was recommendation on last cath dated 02/03/2018. Prior to that, the patient had stent in [address] Lopez in proximal LAD. SOCIAL HISTORY: Quit smoking many years ago. The patient had recently stress test done 01/06/2018, prior to coronary intervention that shows ischemia, ejection fraction 32% and prior to that the patient had echocardiography on 10/18/2017 that shows ejection fraction 50%. CURRENT MEDICATIONS: The patient is taking MiraLax, oxycodone, acetaminophen, Entresto one tablet twice a day, Remeron, lisinopril, Lasix, clopidogrel, atorvastatin, levothyroxine, Xopenex, digoxin, prednisone, carvedilol, aspirin, and Xarelto. REVIEW OF SYSTEMS: As per HPI. ALLERGIES: TAPE. PHYSICAL EXAMINATION: VITAL SIGNS: As follows; height of the patient 5 feet 6 inches, weight of the patient 115 pounds, and body mass index 89 kg/m2. Temperature afebrile, heart rate 60, and blood pressure 92/40. HEENT: PERRLA. Extraocular muscles intact. NECK: Supple. No carotid bruit or thyromegaly. CHEST: Clear to auscultation. HEART: S1 and S2 regular. ABDOMEN: Soft. EXTREMITIES: Clubbing and cyanosis negative. LABORATORY DATA: Blood workup as follow; WBC 14.8, hemoglobin 10.3, hematocrit 34.3, and platelet count 381. Chemistry shows sodium 141, potassium 4, chloride 107, carbon dioxide 25, anion gap of 12, BUN 27, and creatinine 0.9. Troponin 0.31. IMPRESSION: A 77-year-old male with past medical history significant for coronary artery disease, status post percutaneous transluminal coronary angioplasty plain balloon angioplasty of circumflex and obtuse marginal 1 on Gantt2017, cardiomyopathy ischemic, history of advanced multiple sclerosis, history of advanced chronic obstructive pulmonary disease , admitted chronic obstructive pulmonary disease, borderline troponin positive, no evidence of chest pain, elevated BNP and pressure is low because the patient has lot of multiple medications. RECOMMENDATIONS: At this point is the patient is not a candidate to back again for the lab asst because borderline troponin positive asymptomatic and last time he could not deployed the stent because the stent previous is sticking at the left main, so we will treat medically unless the patient developed chest pain was asymptomatic. We will put holding parameters of lot of medication. We will hold the medications with blood pressure 130, we will hold Entresto and lisinopril, we will hold with systolic blood pressure of 120. Continue Coreg low doses. Monitor closely. We will also discontinue Plavix for 4 weeks and continue baby aspirin and Xarelto. We will follow with you. Thank you Dr. Osborne for providing us the opportunity in taking care of Sp[place]. Valeria Hoffmann MD
[2018-03-15 06:53] LABS: ALT/SGPT 28 U/L (7-56); AST/SGOT 33 U/L (17-59); BLOOD UREA NITROGEN 39 mg/dL (7-21); CALCIUM 9.1 mg/dL (8.4-10.5); GFR NON-AFRICAN AMERICAN 53
[2018-03-15 07:29] LABS: BASO # 0.01 K/mm3 (0.0-2.0); BASO % 0.1 % (0.0-3.0); EOS # 0.1 (0.0-0.7); EOS % 0.6 % (1.5-5.0); LYMPH # 1.8 (1.2-3.4); LYMPH % 20.9 % (22.0-35.0); MEAN CELL VOLUME 85.7 fl (80.0-105.0); MEAN CORPUSCULAR HEMOGLOBIN 25.8 pg (25.0-35.0); MEAN CORPUSCULAR HGB CONC 30.1 g/dl (31.0-37.0); MEAN PLATELET VOLUME 9.4 fl (7.0-11.0); MONO # 0.8 (0.1-0.6); MONO % 8.8 % (1.0-6.0); RBC 3.49 10^6/uL (3.5-6.1); RED CELL DISTRIBUTION WIDTH 18.9 % (11.5-14.5); WHITE BLOOD COUNT 8.8 10^3/uL (4.5-11.0)
[2018-03-15] MEDS: Albuterol-Ipratrop 3 mg / 0.5 (3 ml) UD IH SCH ×2 (09:01→19:42)
[2018-03-15] MEDS: SACUBITRIL 24mg/VALSARTAN 26mg tab PO SCH ×2 (09:57→17:53)
[2018-03-15] MEDS: Cefepime IV 2 gm in NS 2 GM/100 ML BAG IVPB SCH ×3 (09:58→21:32)
[2018-03-15] MEDS: POLYETHYLENE GLYCOL 3350 17 GM/Dose PACKET PO SCH (09:59)
[2018-03-15] MEDS: Levothyroxine 88 MCG TAB PO SCH (09:59)
--- NOTE | 2018-03-15 10:53 | PN ---
DATE: 03/15/2018 SUBJECTIVE: The patient has no complaints of any chest pain or shortness of breath, no headaches or dizziness. PHYSICAL EXAMINATION: VITAL SIGNS: Temperature is 98.4, pulse of 57, blood pressure 103/57, respirations 18. GENERAL: The patient is lying in bed, flat, comfortable. HEENT: No oral lesion. Anicteric sclerae. Moist mucosa. NECK: No JVD, adenopathy, or thyromegaly. CARDIOVASCULAR: S1 and S2, regular. No murmurs, rubs, or gallops. LUNGS: Clear to auscultation bilaterally. No wheeze, rales, or rhonchi. ABDOMEN: Bowel sounds are positive, soft, nontender and nondistended. EXTREMITIES: No cyanosis, clubbing or edema. LABORATORY DATA: White count of 8.8, hemoglobin is 9, creatinine is 1.3. ASSESSMENT: 1. Hospital-acquired pneumonia. 2. Non-ST elevation myocardial infarction. 3. Congestive heart failure, acute on chronic, secondary to systolic dysfunction. 4. Coronary artery disease with stent. 5. Atrial fibrillation, on Xarelto. 6. Hypothyroidism. 7. Multiple sclerosis. 8. Hypertension. 9. Chronic constipation. PLAN: The patient was seen by Dr. Hoffmann yesterday. I did speak to him. There is going to be conservative management for the elevated troponin. The patient has had a cardiac cath. The patient is on digoxin daily. He is going to continue with nebulizer treatments. He is on aspirin for his coronary disease. He was given a flu shot. He is on Lasix for his CHF. He is on Lipitor for dyslipidemia. The patient is on cefepime for antibiotics. He has blood cultures x2 that have been negative. He is being followed by Infectious Disease, I appreciate their input. The patient is on Remeron and this will be continued. He is on antibiotics with vancomycin also for his pneumonia. The patient is on Synthroid for hypothyroidism. He is on a heart-healthy diet. Ap Osborne MD
[2018-03-15] MEDS: Albuterol-Ipratrop 3 mg / 0.5 (3 ml) UD IH PRN ×2 (12:11→21:44)
[2018-03-15] MEDS: Digoxin 125 mcg (0.125 mg) Tab PO SCH (15:10)
--- NOTE | 2018-03-15 15:30 | CP.PCM.CON ---
History of Present Illness - History of Present Illness History of Present Illness: 77 year old male with PMH of multiple sclerosis, CAD S/P PCI, hypothyroidism, COPD, HTN, dyslipidemia, S/P right inguinal hernia repair, S/P appendectomy, significant smoking history, history of HCAP, history of sepsis due to Methicillin-resistant Staph aureus bacteremia, consider skin as the source came in to [facility] because of dyspnea on exertion, shortness of breath at rest, generalized weakness and cough for the past 1-2 days. He denies fever or chills, no sore throat, no rhinorrhea, no muscle aches, no nausea or vomiting, no head ache or dizziness, no chest pain, no abdominal pain, no diarrhea, no dysuria. CXR is showing bilateral infiltrates and pleural effusions. The patient states his cough is improving. He states that he got his Influenza vaccine this season. Infectious Diseases cosult is requested to further evaluate and manage. PMH: as above Past surg. hx: appendectomy, bilateral meniscectomy, right inguinal hernior celeste, right elbow ORIF FMH: non-contributory PSHx: no substance abuse Review of Systems - Review of Systems All systems: reviewed and no additional remarkable complaints except (as per HPI) Past Patient History - Infectious Disease Hx of Infectious Diseases: None - Tetanus Immunizations Tetanus Immunization: Unknown - Past Medical History & Family History Past Medical History?: Yes - Past Social History Smoking Status: Former Smoker - CARDIAC Hx Cardiac Disorders: Yes Hx Hypertension: Yes - PULMONARY Hx Respiratory Disorders: Yes Hx Bronchitis: Yes Hx Chronic Obstructive Pulmonary Disease (COPD): Yes Hx Pneumonia: Yes (MRSA, 2-1-19 ISSAC. LOWER LOBE ALVEOLAR INFILTRATE.) Hx Sleep Apnea: Yes - NEUROLOGICAL Hx Neurological Disorder: Yes (multiple sclerosis dx 2000) Other/Comment: NEUROPATHY, right side weakness due to ms right leg "catches", right side weakness, falls - HEENT Hx HEENT Problems: Yes Other/Comment: [place], currently usig left hearing aid, right one is broken - RENAL Hx Chronic Kidney Disease: Yes - ENDOCRINE/METABOLIC Hx Endocrine Disorders: Yes Hx Hypothyroidism: Yes - HEMATOLOGICAL/ONCOLOGICAL Hx Blood Disorders: Yes (MULTIPLE MYELOMA) Hx Anemia: Yes (blood tranfusion x2) - INTEGUMENTARY Hx Dermatological Problems: Yes Other/Comment: dermatitis, 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 "I see a machine tool designer every year, r ft +2 pitting edema dry thisk nails, L ft +1 pitting edema dry sk in thick dry toenails, laceration to eyebrows, face, head injury,rib fx's due to falls in past - MUSCULOSKELETAL/RHEUMATOLOGICAL Hx Musculoskeletal Disorders: Yes (scoliosis) Hx Arthritis: Yes Hx Falls: Yes (multiple) Hx Fractures: Yes (ribs) Hx Osteoarthritis: Yes Hx Unsteady Gait: Yes (cane) Other/Comment: R SHOULDER ARTHROPLASTY orif r elbow, mcgill esophagus, b/l medial meniscusectomy, right femoral head/shoulder replacement, right knee swollen "needs replacement" pt stated. - GASTROINTESTINAL Hx Gastrointestinal Disorders: Yes Hx Gall Bladder Disease: Yes (gallstones) Hx Gastroesophageal Reflux: Yes Other/Comment: esophageal stenosis, gastritis, colon polyp, barretts esophagus - GENITOURINARY/GYNECOLOGICAL Hx Genitourinary Disorders: Yes Hx Prostate Problems: Yes (BPH) Other/Comment: us due to right hydrocele, 08/20/12 epididmytis - PSYCHIATRIC Hx Emotional Abuse: No Hx Physical Abuse: No Hx Substance Use: No - SURGICAL HISTORY Hx Appendectomy: Yes Hx Cardiac Catheterization: Yes Hx Coronary Stent: Yes (ptca/stents x2 02/2012) Other/Comment: laparotomy, rt supraclavicular node removal, coronary artery angiogram [facility], bilateral medial meniscusectomies, rt inguinal herniorraphy, rt elbow repair OR/IF, trans urethral needle ablation prostate, r shoulder arthroplasty 08/2014, incomplete colonoscopy poor prep 04/15/14 hx polyps, excision lypoma, exploratory lap - ANESTHESIA Hx Anesthesia Reactions: Yes ("BLEEDING FROM AIRWAY USED") Hx Malignant Hyperthermia: No Meds Allergies/Adverse Reactions: Allergies Allergy/AdvReac Type Severity Reaction Status Date / Time tape AdvReac REDNESS Uncoded 03/14/18 16:24 - Medications Medications: Current Medications Acetaminophen (Tylenol 325mg Tab) 650 mg PO Q6H PRN PRN Reason: Pain, moderate (4-7) Albuterol/Ipratropium (Duoneb 3 Mg/0.5 Mg (3 Ml) Ud) 3 ml IH Q4H PRN PRN Reason: Shortness of Breath Last Admin: 03/14/18 05:21 Dose: 3 ml Albuterol/Ipratropium (Duoneb 3 Mg/0.5 Mg (3 Ml) Ud) 3 ml IH BID [facility] Last Admin: 03/14/18 23:25 Dose: 3 ml Aspirin (Ecotrin) 81 mg PO DAILY [facility] Last Admin: 03/14/18 10:01 Dose: 81 mg Atorvastatin Calcium (Lipitor) 80 mg PO DIN [facility] Last Admin: 03/14/18 17:31 Dose: 80 mg Bisacodyl (Dulcolax) 10 mg RC PRN PRN PRN Reason: Constipation Carvedilol (Coreg) 3.125 mg PO BID [facility] Digoxin (Digoxin) 0.125 mg PO 1400 [facility] Last Admin: 03/14/18 14:57 Dose: 0.125 mg Furosemide (Lasix) 40 mg PO 0800,1400 [facility] Vancomycin HCl (Vancomycin 1gm) 1 gm in 250 mls @ 167 mls/hr IVPB Q12 [facility]; Protocol Last Admin: 03/15/18 00:39 Dose: 167 mls/hr Cefepime HCl (Maxipime 2gm) 2 gm in 100 mls @ 100 mls/hr IVPB Q8H [facility]; Protocol Stop: 03/19/18 15:16 Last Admin: 03/14/18 23:20 Dose: 100 mls/hr Isosorbide Mononitrate (Imdur Er) 30 mg PO DAILY [facility] Levothyroxine Sodium (Synthroid) 88 mcg PO DAILY [facility] Last Admin: 03/14/18 10:00 Dose: 88 mcg Mirtazapine (Remeron) 15 mg PO HS [facility] Last Admin: 03/14/18 23:20 Dose: 15 mg Polyethylene Glycol (Miralax) 17 gm PO DAILY [facility] Last Admin: 03/14/18 10:02 Dose: 17 gm Rivaroxaban (Xarelto) 15 mg PO DAILY [facility]; Protocol Last Admin: 03/14/18 09:58 Dose: 15 mg Sacubitril/Valsartan (Entresto 24 Mg-26 Mg Tablet) 1 each PO BID [facility] Physical Exam - Constitutional Appears: Non-toxic, Chronically Ill - Head Exam Head Exam: NORMAL INSPECTION - Neck Exam Neck exam: Negative for: Lymphadenopathy, Meningismus - Respiratory Exam Respiratory Exam: Decreased Breath Sounds - Cardiovascular Exam Cardiovascular Exam: +S1, +S2 - GI/Abdominal Exam GI & Abdominal Exam: Soft. absent: Tenderness Results - Vital Signs Recent Vital Signs: Last Vital Signs Temp 98.4 F 03/15/18 06:00 Pulse 57 L 03/15/18 06:00 Resp 18 03/15/18 06:00 BP 103/57 L 03/15/18 06:00 Pulse Ox 94 L 03/15/18 06:00 - Labs Result Diagrams: 03/15/18 05:30 03/15/18 05:30 Labs: Laboratory Results - last 24 hr 03/14/18 03/14/18 03/14/18 02:55 02:55 02:55 Sodium Potassium Chloride Carbon Dioxide Anion Gap BUN Creatinine Est GFR ( Amer) Est GFR (Non-Af Amer) Random Glucose Hemoglobin A1c 6.2 Calcium Phosphorus Magnesium Total Bilirubin AST ALT Alkaline Phosphatase Troponin I 0.16 H* D Total Protein Albumin Globulin Albumin/Globulin Ratio Triglycerides 68 Cholesterol 214 H LDL Cholesterol Direct 92 HDL Cholesterol 77 H Free T4 1.38 TSH 3rd Generation 10.20 H Influenza Typ A,B (EIA) 03/14/18 03/14/18 03/14/18 11:30 17:39 19:26 Sodium Potassium Chloride Carbon Dioxide Anion Gap BUN Creatinine Est GFR ( Amer) Est GFR (Non-Af Amer) Random Glucose Hemoglobin A1c Calcium Phosphorus Magnesium Total Bilirubin AST ALT Alkaline Phosphatase Troponin I 0.31 H* D 0.27 H* Total Protein Albumin Globulin Albumin/Globulin Ratio Triglycerides Cholesterol LDL Cholesterol Direct HDL Cholesterol Free T4 TSH 3rd Generation Influenza Typ A,B (EIA) Negative for flu a/b 03/15/18 05:30 Sodium 139 Potassium 4.8 Chloride 107 Carbon Dioxide 29 Anion Gap 9 L BUN 39 H Creatinine 1.3 Est GFR ( Amer) > 60 Est GFR (Non-Af Amer) 53 Random Glucose 110 Hemoglobin A1c Calcium 9.1 Phosphorus 4.6 H Magnesium 2.0 Total Bilirubin 0.3 AST 33 ALT 28 Alkaline Phosphatase 77 Troponin I Total Protein 6.1 Albumin 3.0 Globulin 3.0 Albumin/Globulin Ratio 1.0 L Triglycerides Cholesterol LDL Cholesterol Direct HDL Cholesterol Free T4 TSH 3rd Generation Influenza Typ A,B (EIA) Assessment & Plan - Assessment and Plan (Free Text) Plan: Assessment systemic inflammatory response syndrome, consider due to acute decompensated heart failure, R/O sepsis from bilateral HCAP history of sepsis due to Methicillin-resistant Staph aureus bacteremia, consider skin as the source, S/P bibasilar HCAP multiple sclerosis CAD S/P PCI hypothyroidism COPD HTN dyslipidemia S/P right inguinal hernia repair S/P appendectomy significant smoking history Plan started IV Vancomycin (but held it for now because of mild renal failure), Cefepime and Doxycycline and will follow up blood cx, urine Legionella Ag, PCT will monitor clinically
[2018-03-15] MEDS: Oxycodone/Acetaminophen 5/325 mg Tab PO PRN ×2 (16:25→21:33)
[2018-03-16] MEDS: Oxycodone/Acetaminophen 5/325 mg Tab PO PRN (02:44)
[2018-03-16] MEDS: Albuterol-Ipratrop 3 mg / 0.5 (3 ml) UD IH PRN ×2 (06:30→14:14)
[2018-03-16 07:10] LABS: BASO # 0.04 K/mm3 (0.0-2.0); BASO % 0.5 % (0.0-3.0); EOS # 0.4 (0.0-0.7); EOS % 4.3 % (1.5-5.0); HEMOGLOBIN 9.4 g/dL (14.0-18.0); MEAN CELL VOLUME 85.5 fl (80.0-105.0); MEAN CORPUSCULAR HEMOGLOBIN 25.3 pg (25.0-35.0); MEAN CORPUSCULAR HGB CONC 29.6 g/dl (31.0-37.0); MEAN PLATELET VOLUME 9.6 fl (7.0-11.0); MONO # 0.4 (0.1-0.6); MONO % 4.8 % (1.0-6.0); RBC 3.72 10^6/uL (3.5-6.1); RED CELL DISTRIBUTION WIDTH 18.9 % (11.5-14.5); WHITE BLOOD COUNT 8.6 10^3/uL (4.5-11.0)
[2018-03-16 07:47] LABS: ALBUMIN 3.1 g/dL (3.0-4.8); CALCIUM 8.7 mg/dL (8.4-10.5)
[2018-03-16] MEDS: Albuterol-Ipratrop 3 mg / 0.5 (3 ml) UD IH SCH (08:00)
[2018-03-16] MEDS: POLYETHYLENE GLYCOL 3350 17 GM/Dose PACKET PO SCH (09:03)
[2018-03-16] MEDS: Levothyroxine 88 MCG TAB PO SCH (09:04)
[2018-03-16] MEDS: SACUBITRIL 24mg/VALSARTAN 26mg tab PO SCH ×2 (09:04→17:40)
[2018-03-16] MEDS: Cefepime IV 2 gm in NS 2 GM/100 ML BAG IVPB SCH ×2 (09:05→21:49)
[2018-03-16] MEDS: Vancomycin 1gm in NS 250ml 1 GM/250 ML BAG IVPB SCH (11:01)
[2018-03-16] MEDS ORDERED: MethylPREDNISolone 40 mg Vial IVP STA (11:38)
[2018-03-16] MEDS: Digoxin 125 mcg (0.125 mg) Tab PO SCH (13:55)
[2018-03-16] MEDS: Levalbuterol 1.25 MG/3 ML Inhal Soln UD IH SCH (19:26)
--- NOTE | 2018-03-16 19:37 | PN ---
DATE: 03/16/2018 SUBJECTIVE: The patient is 77 years old, seen and examined, doing well. Complained of some shortness of breath, eating and tolerating. PHYSICAL EXAMINATION: VITAL SIGNS: He is afebrile, pulse 65, respiration 20, and blood pressure 106/50. LUNGS: Bilateral diffuse decreased breath sounds. HEART: S1 and S2 audible. ABDOMEN: Soft and nontender. No rebound. No guarding. NEUROLOGIC: The patient is awake, alert, oriented, and able to communicate. LABORATORY DATA: WBC is 8.6, hemoglobin 9.4, hematocrit 31.8, and platelet 311. Chemistry; sodium 140, potassium 4.2, chloride 106, CO2 of 28, BUN 47, and creatinine 1.4. His troponin 0.27, is trending down. Flu titers are negative. ASSESSMENT: 1. Chronic obstructive pulmonary disease exacerbation. 2. Leukocytosis, improving. 3. Congestive heart failure. 4. Bilateral infiltrate. 5. History of multiple sclerosis. 6. Hypertension. 7. Chronic atrial fibrillation, on Xarelto. 8. History of chronic obstructive pulmonary disease. PLAN: Currently the patient is on carvedilol and digoxin. He is getting doxycycline. He is getting nebulizer treatment. We will continue isosorbide. He is on cefepime, analgesic as needed. We will start him on small dose of steroid. We will continue Xarelto. We will follow up. Eileen Florez MD
--- NOTE | 2018-03-16 21:02 | PN ---
DATE: 03/16/2018 SUBJECTIVE: The patient seen earlier today in room 260, bed 1. No fevers and no chills. Overall no acute distress. Had an uneventful night. PHYSICAL EXAMINATION: VITAL SIGNS: Temperature is 97, blood pressure is 106/50, respiratory rate of 16. HEENT: Unremarkable. NECK: Supple. LUNGS: Have decreased breath sounds. HEART: Normal S1, S2. ABDOMEN: Soft. LABORATORY EXAMINATION: White count is 8.6, hemoglobin of 9, platelets of 311. Chemistries reveal a BUN of 47, creatinine of 1.7, procalcitonin 0.15. Urinalysis is noted and serology is reviewed. Microbiology blood cultures negative. Urine cultures negative. MRSA screen is negative. ASSESSMENT AND PLAN: This is a 77-year-old male seen earlier today with systemic inflammatory response syndrome, acute decompensated congestive heart failure, must rule out sepsis, bilateral healthcare-associated pneumonia with history of sepsis due to methicillin-resistant Staphylococcus aureus bacteremia and multiple sclerosis, coronary artery disease, hypothyroidism, chronic refractory lung disease, on vancomycin and cefepime and doxycycline in face of negative blood cultures, negative methicillin-resistant Staphylococcus aureus naris screen, negative urine cultures and renal function that is mildly compromised with creatinine of 1.4 with a negative procalcitonin. We will discontinue the vancomycin at this point, continue doxycycline and cefepime and follow the patient's renal function off of vancomycin. We will follow with you. No evidence of methicillin-resistant Staphylococcus aureus at this point. The patient did have a history of methicillin-resistant Staphylococcus aureus in 08/2017 with bacteremia . Jak Gray MD
[2018-03-16] MEDS: MethylPREDNISolone 40 mg Vial IV SCH (21:50)
[2018-03-17] MEDS: Levalbuterol 1.25 MG/3 ML Inhal Soln UD IH SCH ×4 (01:17→20:11)
--- NOTE | 2018-03-17 06:46 | CP.PCM.PN ---
Subjective - Date & Time of Evaluation Date of Evaluation: 03/17/18 Time of Evaluation: 06:25 - Subjective Subjective: Lying in bed, easily awaken, no distress Reason for consultation and follow up:Cardiac consultation for shortness of breath, positive troponin Seen and examined by me and Dr. Hoffmann Objective - Vital Signs/Intake and Output Vital Signs (last 24 hours): Temp Pulse Resp BP Pulse Ox 97.3 F L 81 18 118/64 96 03/17/18 06:00 03/17/18 06:00 03/17/18 06:00 03/17/18 06:00 03/17/18 06:00 Intake and Output: 03/16/18 03/17/18 18:59 06:59 Intake Total 350 1440 Output Total 2950 Balance 350 -1510 - Medications Medications: Current Medications Acetaminophen (Tylenol 325mg Tab) 650 mg PO Q6H PRN PRN Reason: Pain, moderate (4-7) Alprazolam (Xanax) 0.25 mg PO TID PRN; Protocol PRN Reason: Anxiety Stop: 03/23/18 18:01 Last Admin: 03/17/18 01:32 Dose: 0.25 mg Aspirin (Ecotrin) 81 mg PO DAILY [facility] Last Admin: 03/16/18 09:03 Dose: 81 mg Atorvastatin Calcium (Lipitor) 80 mg PO DIN [facility] Last Admin: 03/16/18 17:40 Dose: 80 mg Bisacodyl (Dulcolax) 10 mg RC PRN PRN PRN Reason: Constipation Carvedilol (Coreg) 3.125 mg PO BID [facility] Last Admin: 03/16/18 17:40 Dose: 3.125 mg Digoxin (Digoxin) 0.125 mg PO 1400 [facility] Last Admin: 03/16/18 13:55 Dose: 0.125 mg Doxycycline Hyclate (Doryx) 100 mg PO Q12 [facility]; Protocol Last Admin: 03/16/18 21:50 Dose: 100 mg Furosemide (Lasix) 40 mg PO 0800,1400 [facility] Last Admin: 03/16/18 13:55 Dose: 40 mg Cefepime HCl (Maxipime 2gm) 2 gm in 100 mls @ 100 mls/hr IVPB Q12 [facility]; Protocol Stop: 03/20/18 10:01 Last Admin: 03/16/18 21:49 Dose: 100 mls/hr Isosorbide Mononitrate (Imdur Er) 30 mg PO DAILY [facility] Last Admin: 03/16/18 09:03 Dose: 30 mg Levalbuterol HCl (Xopenex) 1.25 mg IH [id number] [facility] Last Admin: 03/17/18 01:17 Dose: 1.25 mg Levothyroxine Sodium (Synthroid) 88 mcg PO DAILY [facility] Last Admin: 03/16/18 09:04 Dose: 88 mcg Methylprednisolone (Solu-Medrol) 40 mg IV Q12 [facility] Last Admin: 03/16/18 21:50 Dose: 40 mg Mirtazapine (Remeron) 15 mg PO HS [facility] Last Admin: 03/16/18 21:50 Dose: 15 mg Oxycodone/Acetaminophen (Percocet 5/325 Mg Tab) 1 tab PO Q4H PRN PRN Reason: Pain, moderate (4-7) Stop: 03/18/18 07:34 Last Admin: 03/16/18 02:44 Dose: 1 tab Polyethylene Glycol (Miralax) 17 gm PO DAILY [facility] Last Admin: 03/16/18 09:03 Dose: 17 gm Rivaroxaban (Xarelto) 15 mg PO DAILY [facility]; Protocol Last Admin: 03/16/18 09:03 Dose: 15 mg Sacubitril/Valsartan (Entresto 24 Mg-26 Mg Tablet) 1 each PO BID [facility] Last Admin: 03/16/18 17:40 Dose: 1 each - Labs Labs: 03/16/18 05:00 03/16/18 05:00 PT 23.9 SECONDS (9.4-12.5) H 03/14/18 02:55 INR 2.15 03/14/18 02:55 APTT 39.9 Seconds (26.9-38.3) H 03/14/18 02:55 - Constitutional Appears: Non-toxic, No Acute Distress - Head Exam Head Exam: NORMAL INSPECTION, NORMOCEPHALIC - Eye Exam Eye Exam: Normal appearance Pupil Exam: NORMAL ACCOMODATION - ENT Exam ENT Exam: Mucous Membranes Moist, Normal Exam - Respiratory Exam Respiratory Exam: Decreased Breath Sounds, NORMAL BREATHING PATTERN - Cardiovascular Exam Cardiovascular Exam: REGULAR RHYTHM, +S1, +S2 Additional comments: Telemetry NSR 70-80's - GI/Abdominal Exam GI & Abdominal Exam: Soft, Normal Bowel Sounds - Extremities Exam Extremities Exam: Full ROM, Normal Capillary Refill - Neurological Exam Neurological Exam: Alert, Awake, Oriented x3 - Psychiatric Exam Psychiatric exam: Normal Affect, Normal Mood - Skin Skin Exam: Dry, Normal Color, Warm Assessment and Plan - Assessment and Plan (Free Text) Assessment: A 77 year old male who came in to the ER for shortness of breath. History of COPD, coronary artery disease post stents [address] Lopez. multiple sclerosis, congestive heart failure,hypertension,hyperlipidemia,hypothyroidism, chronic atrial fibrillation on Xarelto. History of appendectomy, Right supra- clavicular node removal, bilateral medial meniscusectomies, right inguinal herniorraphy, and right elbow repair ORIF. Recent admission to [facility] was 02/03/18 for cholecystitis and Non-STEMI. Cardiac cath was done and showed [place] triple vessel disease, distal vessel were diffusely diseased, not suitable for CABG, ischemic cardiomyopathy EF 35%, successful plain angioplasty OM1 done could not deploy stent because previous LAD stent was obstructing. Troponin was borderline elevated but patient denies chest pain. Patient not a candidate for cardiac cath due to unable to deploy stent. Will optimize medical treatment unless patient becomes asymptomatic. Echo done on 02/05/18 showed LVEF 35%, mild to moderate MR, mild TR, RVSP 23mmHg. On Xarelto and Aspirin. Will repeat echo in 6 months, if LVEF still low probably recommend AICD. Acute on chronic systolic dysfunction congestive heart failure, Non-STEMI, bilateral lower lobe infiltrates/pneumonia, on IV antibiotics. Plan: No distress, denies chest pain. Heart rate controlled Blood pressure stable On ASA 81 mg daily, Lipitor 80 mg daily,Coreg 3.125 mg BID, Digoxin 0.125 mg daily,Lasix 40 mg BID, Imdur 30 mg daily,Synthroid 88 mcg daily, Solumedrol 40 mg BID, Xarelto 15 mg daily, Entresto 1 tab BID Continue current treatment Continue current medications Continue IV antibiotics as per ID Will follow up Plan and treatment discussed with Dr. Hoffmann
--- NOTE | 2018-03-17 06:52 | CP.PCM.PN ---
<Briseida Anderson - Last Filed: 03/17/18 18:23> Subjective - Date & Time of Evaluation Date of Evaluation: 03/17/18 Time of Evaluation: 07:15 - Subjective Subjective: Pgy3 Medicine progress note for Dr. Osborne Patient seen and examined at bedside. As per nursing, overnight the patient was eager to ambulate and get out of bed. Patient is eager to walk and feels like he is "confined to his bed". He also reports not sleeping well. Patient complained of some sob but feels better since admission. He denied any fever, headache, dizziness, chest pain, cough, abd pain, nausea, vomiting, bowel/bladder compl aints, pain/swelling in his legs b/l. Patient is agreeable to being discharged to [facility]. Objective - Vital Signs/Intake and Output Vital Signs (last 24 hours): Temp Pulse Resp BP Pulse Ox 97.3 F L 81 18 118/64 96 03/17/18 06:00 03/17/18 06:00 03/17/18 06:00 03/17/18 06:00 03/17/18 06:00 Intake and Output: 03/16/18 03/17/18 18:59 06:59 Intake Total 350 1440 Output Total 2950 Balance 350 -1510 - Medications Medications: Current Medications Acetaminophen (Tylenol 325mg Tab) 650 mg PO Q6H PRN PRN Reason: Pain, moderate (4-7) Alprazolam (Xanax) 0.25 mg PO TID PRN; Protocol PRN Reason: Anxiety Stop: 03/23/18 18:01 Last Admin: 03/17/18 01:32 Dose: 0.25 mg Aspirin (Ecotrin) 81 mg PO DAILY [facility] Last Admin: 03/16/18 09:03 Dose: 81 mg Atorvastatin Calcium (Lipitor) 80 mg PO DIN [facility] Last Admin: 03/16/18 17:40 Dose: 80 mg Bisacodyl (Dulcolax) 10 mg RC PRN PRN PRN Reason: Constipation Carvedilol (Coreg) 3.125 mg PO BID [facility] Last Admin: 03/16/18 17:40 Dose: 3.125 mg Digoxin (Digoxin) 0.125 mg PO 1400 [facility] Last Admin: 03/16/18 13:55 Dose: 0.125 mg Doxycycline Hyclate (Doryx) 100 mg PO Q12 [facility]; Protocol Last Admin: 03/16/18 21:50 Dose: 100 mg Furosemide (Lasix) 40 mg PO 0800,1400 [facility] Last Admin: 03/16/18 13:55 Dose: 40 mg Cefepime HCl (Maxipime 2gm) 2 gm in 100 mls @ 100 mls/hr IVPB Q12 [facility]; Protocol Stop: 03/20/18 10:01 Last Admin: 03/16/18 21:49 Dose: 100 mls/hr Isosorbide Mononitrate (Imdur Er) 30 mg PO DAILY [facility] Last Admin: 03/16/18 09:03 Dose: 30 mg Levalbuterol HCl (Xopenex) 1.25 mg IH [id number] [facility] Last Admin: 03/17/18 01:17 Dose: 1.25 mg Levothyroxine Sodium (Synthroid) 88 mcg PO DAILY [facility] Last Admin: 03/16/18 09:04 Dose: 88 mcg Methylprednisolone (Solu-Medrol) 40 mg IV Q12 [facility] Last Admin: 03/16/18 21:50 Dose: 40 mg Mirtazapine (Remeron) 15 mg PO HS [facility] Last Admin: 03/16/18 21:50 Dose: 15 mg Oxycodone/Acetaminophen (Percocet 5/325 Mg Tab) 1 tab PO Q4H PRN PRN Reason: Pain, moderate (4-7) Stop: 03/18/18 07:34 Last Admin: 03/16/18 02:44 Dose: 1 tab Polyethylene Glycol (Miralax) 17 gm PO DAILY [facility] Last Admin: 03/16/18 09:03 Dose: 17 gm Rivaroxaban (Xarelto) 15 mg PO DAILY [facility]; Protocol Last Admin: 03/16/18 09:03 Dose: 15 mg Sacubitril/Valsartan (Entresto 24 Mg-26 Mg Tablet) 1 each PO BID [facility] Last Admin: 03/16/18 17:40 Dose: 1 each - Labs Labs: 03/16/18 05:00 03/16/18 05:00 PT 23.9 SECONDS (9.4-12.5) H 03/14/18 02:55 INR 2.15 03/14/18 02:55 APTT 39.9 Seconds (26.9-38.3) H 03/14/18 02:55 - Constitutional Appears: No Acute Distress, Chronically Ill - Head Exam Head Exam: ATRAUMATIC, NORMAL INSPECTION, NORMOCEPHALIC - Eye Exam Eye Exam: EOMI, Normal appearance. absent: Conjunctival injection, Scleral icterus - ENT Exam ENT Exam: Mucous Membranes Moist - Respiratory Exam Respiratory Exam: Decreased Breath Sounds, NORMAL BREATHING PATTERN. absent: Accessory Muscle Use, Respiratory Distress - Cardiovascular Exam Cardiovascular Exam: Irregular Rhythm, +S1, +S2 - GI/Abdominal Exam GI & Abdominal Exam: Soft, Normal Bowel Sounds. absent: Firm, Tenderness - Extremities Exam Extremities Exam: Normal Capillary Refill, Normal Inspection. absent: Pedal Edema - Neurological Exam Neurological Exam: Alert, Awake, Oriented x3 - Psychiatric Exam Psychiatric exam: Normal Affect, Normal Mood - Skin Skin Exam: Dry, Intact, Normal Color, Warm Assessment and Plan - Assessment and Plan (Free Text) Assessment: -HAP -NSTEMI -Acute on chronic systolic CHF exacerbation -CAD s/p 2 stents -Chronic Afib on Xarelto -Hypothyroidism -Multiple Sclerosis -HTN -Chronic constipation Plan: Patient's blood work, vitals, and imaging noted. Patient on Cefepime and Doxy day 3-4 as per ID; cultures negative and procal is wnl. Patient not a candidate for cardiac cath as per cardio due to unable to deploy stent. Will continue with medical management at this time. Echo done on 02/05/18 showed LVEF 35%, mild to moderate MR, mild TR, RVSP 23mmHg. Patient on ASA, Plavix, Xarelto, Coreg, E ntresto, Imdur, and Lipitor. As per cardio, repeat echo in 6 months, if LVEF still low probably recommend AICD. Continue home synthroid for hypothyroidism and miralax and dulcolax for chronic constipation. Patient on home Remeron. Maintain strict Is and Os, HHD with fluid restriction, and measure daily weights. Patient pending discharge to [facility]. Discussed with Dr.Choudhry Briseida Anderson PGY3 <Ap Osborne S - Last Filed: 03/17/18 20:04> Objective - Vital Signs/Intake and Output Vital Signs (last 24 hours): Temp Pulse Resp BP Pulse Ox 97.1 F L 84 19 127/69 96 03/17/18 18:00 03/17/18 18:00 03/17/18 18:00 03/17/18 18:00 03/17/18 06:00 Intake and Output: 03/17/18 03/18/18 18:59 06:59 Intake Total 100 Balance 100 - Medications Medications: Current Medications Acetaminophen (Tylenol 325mg Tab) 650 mg PO Q6H PRN PRN Reason: Pain, moderate (4-7) Alprazolam (Xanax) 0.25 mg PO TID PRN; Protocol PRN Reason: Anxiety Stop: 03/23/18 18:01 Last Admin: 03/17/18 15:22 Dose: 0.25 mg Aspirin (Ecotrin) 81 mg PO DAILY [facility] Last Admin: 03/17/18 09:27 Dose: 81 mg Atorvastatin Calcium (Lipitor) 80 mg PO DIN [facility] Last Admin: 03/17/18 17:54 Dose: 80 mg Bisacodyl (Dulcolax) 10 mg RC PRN PRN PRN Reason: Constipation Carvedilol (Coreg) 3.125 mg PO BID [facility] Last Admin: 03/17/18 17:55 Dose: 3.125 mg Digoxin (Digoxin) 0.125 mg PO 1400 [facility] Last Admin: 03/17/18 15:15 Dose: 0.125 mg Doxycycline Hyclate (Doryx) 100 mg PO Q12 [facility]; Protocol Last Admin: 03/17/18 09:27 Dose: 100 mg Furosemide (Lasix) 40 mg PO 0800,1400 [facility] Last Admin: 03/17/18 15:16 Dose: 40 mg Cefepime HCl (Maxipime 2gm) 2 gm in 100 mls @ 100 mls/hr IVPB Q12 [facility]; Protocol Stop: 03/20/18 10:01 Last Admin: 03/17/18 09:26 Dose: 100 mls/hr Isosorbide Mononitrate (Imdur Er) 30 mg PO DAILY [facility] Last Admin: 03/17/18 09:27 Dose: 30 mg Levalbuterol HCl (Xopenex) 1.25 mg IH [id number] [facility] Last Admin: 03/17/18 13:16 Dose: 1.25 mg Levothyroxine Sodium (Synthroid) 88 mcg PO DAILY [facility] Last Admin: 03/17/18 09:27 Dose: 88 mcg Methylprednisolone (Solu-Medrol) 40 mg IV Q12 [facility] Last Admin: 03/17/18 09:26 Dose: 40 mg Mirtazapine (Remeron) 15 mg PO HS [facility] Last Admin: 03/16/18 21:50 Dose: 15 mg Oxycodone/Acetaminophen (Percocet 5/325 Mg Tab) 1 tab PO Q4H PRN PRN Reason: Pain, moderate (4-7) Stop: 03/18/18 07:34 Last Admin: 03/16/18 02:44 Dose: 1 tab Polyethylene Glycol (Miralax) 17 gm PO DAILY [facility] Last Admin: 03/17/18 09:26 Dose: 17 gm Rivaroxaban (Xarelto) 15 mg PO DAILY [facility]; Protocol Last Admin: 03/17/18 09:27 Dose: 15 mg Sacubitril/Valsartan (Entresto 24 Mg-26 Mg Tablet) 1 each PO BID [facility] Last Admin: 03/17/18 17:54 Dose: 1 each - Labs Labs: 03/17/18 07:16 03/17/18 07:16 PT 23.9 SECONDS (9.4-12.5) H 03/14/18 02:55 INR 2.15 03/14/18 02:55 APTT 39.9 Seconds (26.9-38.3) H 03/14/18 02:55 Assessment and Plan - Assessment and Plan (Free Text) Plan: Pt seen and examined by me. I have reviewed the note of the medical clerical assistant and I agree with it. I have discussed the assessment and plan with the resident. I have reviewed the medications and the last labs.Pt with HCAP and is on Cefepime and Doxycycline. He is feeling better. He does have a cough. Continue with Lipitor for dyslipidemia. On Synthroid for hypothyroidism. On Xarelto for a fib. CAD treated with ASA and Plavix.
[2018-03-17 07:35] LABS: EOS % 0.1 % (1.5-5.0); HEMOGLOBIN 10.2 g/dL (14.0-18.0); LYMPH # 1.1 (1.2-3.4); LYMPH % 14.7 % (22.0-35.0); MEAN CORPUSCULAR HEMOGLOBIN 25.2 pg (25.0-35.0); MEAN PLATELET VOLUME 9.2 fl (7.0-11.0); MONO # 0.2 (0.1-0.6); MONO % 2.6 % (1.0-6.0); RBC 4.05 10^6/uL (3.5-6.1); RED CELL DISTRIBUTION WIDTH 18.4 % (11.5-14.5); WHITE BLOOD COUNT 7.4 10^3/uL (4.5-11.0)
[2018-03-17 08:04] LABS: ALBUMIN 3.2 g/dL (3.0-4.8); ALT/SGPT 27 U/L (7-56); AST/SGOT 30 U/L (17-59); BLOOD UREA NITROGEN 54 mg/dL (7-21); CALCIUM 9.1 mg/dL (8.4-10.5); GFR NON-AFRICAN AMERICAN 53
[2018-03-17] MEDS: MethylPREDNISolone 40 mg Vial IV SCH ×2 (09:26→21:42)
[2018-03-17] MEDS: Cefepime IV 2 gm in NS 2 GM/100 ML BAG IVPB SCH ×2 (09:26→21:43)
[2018-03-17] MEDS: POLYETHYLENE GLYCOL 3350 17 GM/Dose PACKET PO SCH (09:26)
[2018-03-17] MEDS: Levothyroxine 88 MCG TAB PO SCH (09:27)
[2018-03-17] MEDS: SACUBITRIL 24mg/VALSARTAN 26mg tab PO SCH ×2 (09:27→17:54)
--- NOTE | 2018-03-17 13:17 | CP.PCM.PN ---
Subjective - Date & Time of Evaluation Date of Evaluation: 03/17/18 Time of Evaluation: 10:25 - Subjective Subjective: Patient still feels weak when he walks, no fevers, still with SOB but better, no nausea or diarrhea. Objective - Vital Signs/Intake and Output Vital Signs (last 24 hours): Temp Pulse Resp BP Pulse Ox 97.3 F L 75 18 118/61 96 03/17/18 06:00 03/17/18 09:27 03/17/18 06:00 03/17/18 09:27 03/17/18 06:00 Intake and Output: 03/17/18 03/17/18 06:59 18:59 Intake Total 1440 Output Total 2950 Balance -1510 - Medications Medications: Current Medications Acetaminophen (Tylenol 325mg Tab) 650 mg PO Q6H PRN PRN Reason: Pain, moderate (4-7) Alprazolam (Xanax) 0.25 mg PO TID PRN; Protocol PRN Reason: Anxiety Stop: 03/23/18 18:01 Last Admin: 03/17/18 01:32 Dose: 0.25 mg Aspirin (Ecotrin) 81 mg PO DAILY [facility] Last Admin: 03/17/18 09:27 Dose: 81 mg Atorvastatin Calcium (Lipitor) 80 mg PO DIN [facility] Last Admin: 03/16/18 17:40 Dose: 80 mg Bisacodyl (Dulcolax) 10 mg RC PRN PRN PRN Reason: Constipation Carvedilol (Coreg) 3.125 mg PO BID [facility] Last Admin: 03/17/18 09:27 Dose: 3.125 mg Digoxin (Digoxin) 0.125 mg PO 1400 [facility] Last Admin: 03/16/18 13:55 Dose: 0.125 mg Doxycycline Hyclate (Doryx) 100 mg PO Q12 [facility]; Protocol Last Admin: 03/17/18 09:27 Dose: 100 mg Furosemide (Lasix) 40 mg PO 0800,1400 [facility] Last Admin: 03/17/18 09:27 Dose: 40 mg Cefepime HCl (Maxipime 2gm) 2 gm in 100 mls @ 100 mls/hr IVPB Q12 [facility]; Protocol Stop: 03/20/18 10:01 Last Admin: 03/17/18 09:26 Dose: 100 mls/hr Isosorbide Mononitrate (Imdur Er) 30 mg PO DAILY [facility] Last Admin: 03/17/18 09:27 Dose: 30 mg Levalbuterol HCl (Xopenex) 1.25 mg IH [id number] [facility] Last Admin: 03/17/18 07:19 Dose: 1.25 mg Levothyroxine Sodium (Synthroid) 88 mcg PO DAILY [facility] Last Admin: 03/17/18 09:27 Dose: 88 mcg Methylprednisolone (Solu-Medrol) 40 mg IV Q12 [facility] Last Admin: 03/17/18 09:26 Dose: 40 mg Mirtazapine (Remeron) 15 mg PO HS [facility] Last Admin: 03/16/18 21:50 Dose: 15 mg Oxycodone/Acetaminophen (Percocet 5/325 Mg Tab) 1 tab PO Q4H PRN PRN Reason: Pain, moderate (4-7) Stop: 03/18/18 07:34 Last Admin: 03/16/18 02:44 Dose: 1 tab Polyethylene Glycol (Miralax) 17 gm PO DAILY [facility] Last Admin: 03/17/18 09:26 Dose: 17 gm Rivaroxaban (Xarelto) 15 mg PO DAILY [facility]; Protocol Last Admin: 03/17/18 09:27 Dose: 15 mg Sacubitril/Valsartan (Entresto 24 Mg-26 Mg Tablet) 1 each PO BID [facility] Last Admin: 03/17/18 09:27 Dose: 1 each - Labs Labs: 03/17/18 07:16 03/17/18 07:16 PT 23.9 SECONDS (9.4-12.5) H 03/14/18 02:55 INR 2.15 03/14/18 02:55 APTT 39.9 Seconds (26.9-38.3) H 03/14/18 02:55 - Constitutional Appears: Chronically Ill - Head Exam Head Exam: NORMAL INSPECTION - Respiratory Exam Respiratory Exam: Decreased Breath Sounds - Cardiovascular Exam Cardiovascular Exam: +S1, +S2 - GI/Abdominal Exam GI & Abdominal Exam: Soft. absent: Tenderness Assessment and Plan - Assessment and Plan (Free Text) Plan: Assessment systemic inflammatory response syndrome, consider due to acute decompensated heart failure, R/O sepsis from bilateral HCAP history of sepsis due to Methicillin-resistant Staph aureus bacteremia, consider skin as the source, S/P bibasilar HCAP multiple sclerosis CAD S/P PCI hypothyroidism COPD HTN dyslipidemia S/P right inguinal hernia repair S/P appendectomy significant smoking history Plan continue Cefepime and Doxycycline day 3-4 ; cultures have negative and PCT is low; target 4-7 days of antibiotics discussed with Dr. Sumner's team will continue to monitor clinically
[2018-03-17] MEDS: Digoxin 125 mcg (0.125 mg) Tab PO SCH (15:15)
[2018-03-18] MEDS: Levalbuterol 1.25 MG/3 ML Inhal Soln UD IH SCH ×3 (02:30→20:42)
[2018-03-18 06:29] VITALS: O2SAT 98
--- NOTE | 2018-03-18 06:37 | CP.PCM.PN ---
Subjective - Date & Time of Evaluation Date of Evaluation: 03/18/18 Time of Evaluation: 06:10 - Subjective Subjective: Lying in bed,no distress, denies shortness of breath Reason for consultation and follow up:Cardiac consultation for shortness of breath, positive troponin, Acute on chronic systolic dysfunction congestive heart failure, Non-STEMI Seen and examined by me and Dr. Hoffmann Objective - Vital Signs/Intake and Output Vital Signs (last 24 hours): Temp Pulse Resp BP Pulse Ox 97.8 F 78 18 119/66 98 03/18/18 06:00 03/18/18 06:00 03/18/18 06:00 03/18/18 06:00 03/18/18 06:00 Intake and Output: 03/17/18 03/18/18 18:59 06:59 Intake Total 100 Balance 100 - Medications Medications: Current Medications Acetaminophen (Tylenol 325mg Tab) 650 mg PO Q6H PRN PRN Reason: Pain, moderate (4-7) Alprazolam (Xanax) 0.25 mg PO TID PRN; Protocol PRN Reason: Anxiety Stop: 03/23/18 18:01 Last Admin: 03/17/18 23:29 Dose: 0.25 mg Aspirin (Ecotrin) 81 mg PO DAILY [facility] Last Admin: 03/17/18 09:27 Dose: 81 mg Atorvastatin Calcium (Lipitor) 80 mg PO DIN [facility] Last Admin: 03/17/18 17:54 Dose: 80 mg Bisacodyl (Dulcolax) 10 mg RC PRN PRN PRN Reason: Constipation Carvedilol (Coreg) 3.125 mg PO BID [facility] Last Admin: 03/17/18 17:55 Dose: 3.125 mg Digoxin (Digoxin) 0.125 mg PO 1400 [facility] Last Admin: 03/17/18 15:15 Dose: 0.125 mg Doxycycline Hyclate (Doryx) 100 mg PO Q12 [facility]; Protocol Last Admin: 03/17/18 21:43 Dose: 100 mg Furosemide (Lasix) 40 mg PO 0800,1400 [facility] Last Admin: 03/17/18 15:16 Dose: 40 mg Cefepime HCl (Maxipime 2gm) 2 gm in 100 mls @ 100 mls/hr IVPB Q12 [facility]; Protocol Stop: 03/20/18 10:01 Last Admin: 03/17/18 21:43 Dose: 100 mls/hr Isosorbide Mononitrate (Imdur Er) 30 mg PO DAILY [facility] Last Admin: 03/17/18 09:27 Dose: 30 mg Levalbuterol HCl (Xopenex) 1.25 mg IH [id number] [facility] Last Admin: 03/18/18 02:30 Dose: Not Given Levothyroxine Sodium (Synthroid) 88 mcg PO DAILY [facility] Last Admin: 03/17/18 09:27 Dose: 88 mcg Methylprednisolone (Solu-Medrol) 40 mg IV Q12 [facility] Last Admin: 03/17/18 21:42 Dose: 40 mg Mirtazapine (Remeron) 15 mg PO HS [facility] Last Admin: 03/17/18 21:43 Dose: 15 mg Oxycodone/Acetaminophen (Percocet 5/325 Mg Tab) 1 tab PO Q4H PRN PRN Reason: Pain, moderate (4-7) Stop: 03/18/18 07:34 Last Admin: 03/16/18 02:44 Dose: 1 tab Polyethylene Glycol (Miralax) 17 gm PO DAILY [facility] Last Admin: 03/17/18 09:26 Dose: 17 gm Rivaroxaban (Xarelto) 15 mg PO DAILY [facility]; Protocol Last Admin: 03/17/18 09:27 Dose: 15 mg Sacubitril/Valsartan (Entresto 24 Mg-26 Mg Tablet) 1 each PO BID [facility] Last Admin: 03/17/18 17:54 Dose: 1 each - Labs Labs: 03/17/18 07:16 03/17/18 07:16 PT 23.9 SECONDS (9.4-12.5) H 03/14/18 02:55 INR 2.15 03/14/18 02:55 APTT 39.9 Seconds (26.9-38.3) H 03/14/18 02:55 - Constitutional Appears: Non-toxic, No Acute Distress - Head Exam Head Exam: NORMAL INSPECTION, NORMOCEPHALIC - Eye Exam Eye Exam: Normal appearance Pupil Exam: NORMAL ACCOMODATION - ENT Exam ENT Exam: Mucous Membranes Moist, Normal Exam - Respiratory Exam Respiratory Exam: Decreased Breath Sounds, Clear to Ausculation Bilateral, NORMAL BREATHING PATTERN - Cardiovascular Exam Cardiovascular Exam: +S1, +S2 - GI/Abdominal Exam GI & Abdominal Exam: Soft, Normal Bowel Sounds - Extremities Exam Extremities Exam: Full ROM, Normal Capillary Refill - Neurological Exam Neurological Exam: Alert, Awake, Oriented x3 - Psychiatric Exam Psychiatric exam: Normal Affect, Normal Mood - Skin Skin Exam: Dry, Normal Color, Warm Assessment and Plan - Assessment and Plan (Free Text) Assessment: A 77 year old male who came in to the ER for shortness of breath. History of COPD, coronary artery disease post stents [address] Lopez. multiple sclerosis, congestive heart failure,hypertension,hyperlipidemia,hypothyroidism, chronic atrial fibrillation on Xarelto. History of appendectomy, Right supra- clavicular node removal, bilateral medial meniscusectomies, right inguinal her niorraphy, and right elbow repair ORIF. Recent admission to [facility] was 02/03/18 for cholecystitis and Non-STEMI. Cardiac cath was done and showed [place] triple vessel disease, distal vessel were diffu sely diseased, not suitable for CABG, ischemic cardiomyopathy EF 35%, successful plain angioplasty OM1 done could not deploy stent because previous LAD stent was obstructing. Troponin was borderline elevated but patient denies chest pain. Patient not a candidate for cardiac cath due to unable to deploy stent. Will optimize medical treatment unless patient becomes asymptomatic. Echo done on 02/05/18 showed LVEF 35%, mild to moderate MR, mild TR, RVSP 23mmHg. On Xarelto and Aspirin. Will repeat echo in 6 months, if LVEF still low probably recommend AICD. Acute on chronic systolic dysfunction congestive heart failure, Non-STEMI, bilateral lower lobe infiltrates/pneumonia, on IV antibiotics. Cardiac status stable. Clinically improved. Plan: Cardiac status stable No distress, denies chest pain. Heart rate controlled Blood pressure stable On ASA 81 mg daily, Lipitor 80 mg daily,Coreg 3.125 mg BID, Digoxin 0.125 mg daily,Lasix 40 mg BID, Imdur 30 mg daily,Synthroid 88 mcg daily, Solumedrol 40 mg BID, Xarelto 15 mg daily, Entresto 1 tab BID Continue current treatment Continue current medications Continue IV antibiotics as per ID Will repeat echo in 3-6 months, may need AICD if still low LVEF Discharge planning Will follow up Plan and treatment discussed with Dr. Hoffmann
[2018-03-18 07:32] LABS: HEMOGLOBIN 10.4 g/dL (14.0-18.0); LYMPH # 1.5 (1.2-3.4); LYMPH % 13.4 % (22.0-35.0); MEAN CELL VOLUME 83.6 fl (80.0-105.0); MEAN CORPUSCULAR HEMOGLOBIN 25.4 pg (25.0-35.0); MEAN CORPUSCULAR HGB CONC 30.4 g/dl (31.0-37.0); MEAN PLATELET VOLUME 9.3 fl (7.0-11.0); MONO # 0.3 (0.1-0.6); MONO % 2.8 % (1.0-6.0); RBC 4.09 10^6/uL (3.5-6.1); RED CELL DISTRIBUTION WIDTH 18.4 % (11.5-14.5); WHITE BLOOD COUNT 11.3 10^3/uL (4.5-11.0)
[2018-03-18 08:16] LABS: ALB/GLOB RATIO 1.1 (1.1-1.8); ALBUMIN 3.4 g/dL (3.0-4.8); ALT/SGPT 25 U/L (7-56); AST/SGOT 35 U/L (17-59); BLOOD UREA NITROGEN 52 mg/dL (7-21); GFR NON-AFRICAN AMERICAN 59
[2018-03-18] MEDS: POLYETHYLENE GLYCOL 3350 17 GM/Dose PACKET PO SCH (09:41)
[2018-03-18] MEDS: SACUBITRIL 24mg/VALSARTAN 26mg tab PO SCH ×2 (09:41→18:30)
[2018-03-18] MEDS: Levothyroxine 88 MCG TAB PO SCH (09:41)
[2018-03-18] MEDS: MethylPREDNISolone 40 mg Vial IV SCH (09:42)
[2018-03-18] MEDS: Cefepime IV 2 gm in NS 2 GM/100 ML BAG IVPB SCH (09:54)
[2018-03-18] MEDS: Digoxin 125 mcg (0.125 mg) Tab PO SCH (13:27)
[2018-03-18 13:34] VITALS: PULSE 70
--- NOTE | 2018-03-18 14:12 | CP.PCM.PN ---
Subjective - Date & Time of Evaluation Date of Evaluation: 03/18/18 Time of Evaluation: 10:40 - Subjective Subjective: Comfortable, less short of breath, no fevers. Objective - Vital Signs/Intake and Output Vital Signs (last 24 hours): Temp Pulse Resp BP Pulse Ox 97.3 F L 75 18 118/61 96 03/17/18 06:00 03/17/18 09:27 03/17/18 06:00 03/17/18 09:27 03/17/18 06:00 Intake and Output: 03/17/18 03/17/18 06:59 18:59 Intake Total 1440 Output Total 2950 Balance -1510 - Medications Medications: Current Medications Acetaminophen (Tylenol 325mg Tab) 650 mg PO Q6H PRN PRN Reason: Pain, moderate (4-7) Alprazolam (Xanax) 0.25 mg PO TID PRN; Protocol PRN Reason: Anxiety Stop: 03/23/18 18:01 Last Admin: 03/17/18 01:32 Dose: 0.25 mg Aspirin (Ecotrin) 81 mg PO DAILY [facility] Last Admin: 03/17/18 09:27 Dose: 81 mg Atorvastatin Calcium (Lipitor) 80 mg PO DIN [facility] Last Admin: 03/16/18 17:40 Dose: 80 mg Bisacodyl (Dulcolax) 10 mg RC PRN PRN PRN Reason: Constipation Carvedilol (Coreg) 3.125 mg PO BID [facility] Last Admin: 03/17/18 09:27 Dose: 3.125 mg Digoxin (Digoxin) 0.125 mg PO 1400 [facility] Last Admin: 03/16/18 13:55 Dose: 0.125 mg Doxycycline Hyclate (Doryx) 100 mg PO Q12 [facility]; Protocol Last Admin: 03/17/18 09:27 Dose: 100 mg Furosemide (Lasix) 40 mg PO 0800,1400 [facility] Last Admin: 03/17/18 09:27 Dose: 40 mg Cefepime HCl (Maxipime 2gm) 2 gm in 100 mls @ 100 mls/hr IVPB Q12 [facility]; Protocol Stop: 03/20/18 10:01 Last Admin: 03/17/18 09:26 Dose: 100 mls/hr Isosorbide Mononitrate (Imdur Er) 30 mg PO DAILY [facility] Last Admin: 03/17/18 09:27 Dose: 30 mg Levalbuterol HCl (Xopenex) 1.25 mg IH [id number] [facility] Last Admin: 03/17/18 13:16 Dose: 1.25 mg Levothyroxine Sodium (Synthroid) 88 mcg PO DAILY [facility] Last Admin: 03/17/18 09:27 Dose: 88 mcg Methylprednisolone (Solu-Medrol) 40 mg IV Q12 [facility] Last Admin: 03/17/18 09:26 Dose: 40 mg Mirtazapine (Remeron) 15 mg PO HS [facility] Last Admin: 03/16/18 21:50 Dose: 15 mg Oxycodone/Acetaminophen (Percocet 5/325 Mg Tab) 1 tab PO Q4H PRN PRN Reason: Pain, moderate (4-7) Stop: 03/18/18 07:34 Last Admin: 03/16/18 02:44 Dose: 1 tab Polyethylene Glycol (Miralax) 17 gm PO DAILY [facility] Last Admin: 03/17/18 09:26 Dose: 17 gm Rivaroxaban (Xarelto) 15 mg PO DAILY [facility]; Protocol Last Admin: 03/17/18 09:27 Dose: 15 mg Sacubitril/Valsartan (Entresto 24 Mg-26 Mg Tablet) 1 each PO BID [facility] Last Admin: 03/17/18 09:27 Dose: 1 each - Labs Labs: 03/17/18 07:16 03/17/18 07:16 PT 23.9 SECONDS (9.4-12.5) H 03/14/18 02:55 INR 2.15 03/14/18 02:55 APTT 39.9 Seconds (26.9-38.3) H 03/14/18 02:55 - Constitutional Appears: Chronically Ill - Head Exam Head Exam: NORMAL INSPECTION - Respiratory Exam Respiratory Exam: Decreased Breath Sounds - Cardiovascular Exam Cardiovascular Exam: +S1, +S2 - GI/Abdominal Exam GI & Abdominal Exam: Soft. absent: Tenderness Assessment and Plan - Assessment and Plan (Free Text) Plan: Assessment systemic inflammatory response syndrome, consider due to acute decompensated heart failure, R/O sepsis from bilateral HCAP history of sepsis due to Methicillin-resistant Staph aureus bacteremia, consider skin as the source, S/P bibasilar HCAP multiple sclerosis CAD S/P PCI hypothyroidism COPD HTN dyslipidemia S/P right inguinal hernia repair S/P appendectomy significant smoking history Plan continue Cefepime and Doxycycline day 4-5 ; cultures have negative and PCT is low; target 4-7 days of antibiotics discussed with Dr. Sumner's team will continue to monitor clinically while the patient is in the hospital
--- NOTE | 2018-03-18 16:46 | CP.PCM.DIS ---
<Briseida Anderson - Last Filed: 03/18/18 19:13> Provider - Provider Date of Admission: 03/14/18 04:20 Attending physician: Ap Osborne MD Primary care physician: Jake Negron MD Consults: 03/14/18 08:11 Cardiology Consult Routine Comment: Consulting Provider: Valeria Hoffmann Consulting Physician: Valeria Hoffmann Reason for Consult: dyspnea on exertion 03/14/18 15:00 Infectious Disease Consult Routine Comment: Consulting Provider: Enio Lagos Consulting Physician: Enio Lagos Reason for Consult: r/o HCAP 03/14/18 17:01 Inpatient [employer] Core Measures Referral Routine Comment: PNEUMONIA Physician Instructions: Reason For Exam: EVALUATION Nursing Referral for Wound Care Routine Comment: AT RISK FOR SKIN BREAKDOWN. ON AN ANTICOAGULANT Physician Instructions: Reason For Exam: EVALUATION Transition In Care/Readmission Reduction Routine Comment: Physician Instructions: Reason For Exam: EVALUATION 03/14/18 17:07 Social Work Referral Routine Comment: DISCHARGE PLANNING TO HOME. Physician Instructions: Reason For Exam: EVALUATION Time Spent in preparation of Discharge (in minutes): 45 Hospital Course - Lab Results Lab Results: Micro Results 03/14/18 03:25 Blood Blood Culture - Preliminary NO GROWTH AFTER 4 DAYS 03/14/18 02:55 Blood Blood Culture - Preliminary NO GROWTH AFTER 4 DAYS 03/14/18 18:30 Naris MRSA Culture (Admit) - Final MRSA DETECTED 03/14/18 05:00 Urine Random Urine Culture - Final No Growth (<1,000 CFU/ML) Most Recent Lab Values WBC 11.3 10^3/uL (4.5-11.0) H D 03/18/18 07:00 RBC 4.09 10^6/uL (3.5-6.1) 03/18/18 07:00 Hgb 10.4 g/dL (14.0-18.0) L 03/18/18 07:00 Hct 34.2 % (42.0-52.0) L 03/18/18 07:00 MCV 83.6 fl (80.0-105.0) 03/18/18 07:00 MCH 25.4 pg (25.0-35.0) 03/18/18 07:00 MCHC 30.4 g/dl (31.0-37.0) L 03/18/18 07:00 RDW 18.4 % (11.5-14.5) H 03/18/18 07:00 Plt Count 342 10^3/uL (120.0-450.0) 03/18/18 07:00 MPV 9.3 fl (7.0-11.0) 03/18/18 07:00 Neut % (Auto) 83.8 % (50.0-68.0) H 03/18/18 07:00 Lymph % (Auto) 13.4 % (22.0-35.0) L 03/18/18 07:00 Bullock % (Auto) 2.8 % (1.0-6.0) 03/18/18 07:00 Eos % (Auto) 0.0 % (1.5-5.0) L 03/18/18 07:00 Baso % (Auto) 0.0 % (0.0-3.0) 03/18/18 07:00 Lymph # (Auto) 1.5 (1.2-3.4) 03/18/18 07:00 Bullock # (Auto) 0.3 (0.1-0.6) 03/18/18 07:00 Eos # (Auto) 0.0 (0.0-0.7) 03/18/18 07:00 Baso # (Auto) 0.00 K/mm3 (0.0-2.0) 03/18/18 07:00 Absolute Neuts (auto) 9.46 (1.4-6.5) H 03/18/18 07:00 PT 23.9 SECONDS (9.4-12.5) H 03/14/18 02:55 INR 2.15 03/14/18 02:55 APTT 39.9 Seconds (26.9-38.3) H 03/14/18 02:55 pO2 63 mm/Hg (30-55) H 03/14/18 04:15 VBG pH 7.35 (7.32-7.43) 03/14/18 04:15 VBG pCO2 46.0 (40-60) 03/14/18 04:15 VBG HCO3 25.4 mmol/l (21-28) 03/14/18 04:15 VBG Total CO2 26.8 mmol.L (22-28) 03/14/18 04:15 VBG O2 Sat (Calc) 94.9 % (40-65) H 03/14/18 04:15 VBG Base Excess -0.6 mmol/L (0.0-2.0) L 03/14/18 04:15 VBG Potassium 4.3 mmol/L (3.6-5.2) 03/14/18 04:15 Sodium 141.0 mmol/L (132-148) 03/14/18 04:15 Chloride 110.0 mmol/L (98-107) H 03/14/18 04:15 Glucose 120 mg/dl (75-110) H 03/14/18 04:15 Lactate 1.8 mmol/L (0.7-2.1) 03/14/18 04:15 FiO2 21.0 % 03/14/18 04:15 Sodium 139 mmol/L (132-148) 03/18/18 07:00 Potassium 4.2 mmol/L (3.6-5.0) 03/18/18 07:00 Chloride 105 mmol/L (98-107) 03/18/18 07:00 Carbon Dioxide 28 mmol/L (21-33) 03/18/18 07:00 Anion Gap 11 (10-20) 03/18/18 07:00 BUN 52 mg/dL (7-21) H 03/18/18 07:00 Creatinine 1.2 mg/dl (0.8-1.5) 03/18/18 07:00 Est GFR ( Amer) > 60 03/18/18 07:00 Est GFR (Non-Af Amer) 59 03/18/18 07:00 Random Glucose 141 mg/dL (70-110) H 03/18/18 07:00 Hemoglobin A1c 6.2 % (4.2-6.5) 03/14/18 02:55 Calcium 9.0 mg/dL (8.4-10.5) 03/18/18 07:00 Phosphorus 4.6 mg/dL (2.5-4.5) H 03/15/18 05:30 Magnesium 2.0 mg/dL (1.7-2.2) 03/15/18 05:30 Total Bilirubin 0.4 mg/dL (0.2-1.3) 03/18/18 07:00 AST 35 U/L (17-59) 03/18/18 07:00 ALT 25 U/L (7-56) 03/18/18 07:00 Alkaline Phosphatase 94 U/L (38-126) 03/18/18 07:00 Troponin I 0.27 ng/mL H* 03/14/18 19:26 NT-Pro-B Natriuret Pep 57765 pg/mL (0-450) H 03/14/18 02:55 Total Protein 6.5 g/dL (5.8-8.3) 03/18/18 07:00 Albumin 3.4 g/dL (3.0-4.8) 03/18/18 07:00 Globulin 3.1 gm/dL 03/18/18 07:00 Albumin/Globulin Ratio 1.1 (1.1-1.8) 03/18/18 07:00 Triglycerides 68 mg/dL (35-160) 03/14/18 02:55 Cholesterol 214 mg/dL (130-200) H 03/14/18 02:55 LDL Cholesterol Direct 92 mg/dL (0-129) 03/14/18 02:55 HDL Cholesterol 77 mg/dL (29-60) H 03/14/18 02:55 Procalcitonin 0.15 NG/ML (0.19-0.49) L 03/14/18 15:30 Free T4 1.38 ng/dL (0.78-2.19) 03/14/18 02:55 TSH 3rd Generation 10.20 mIU/mL (0.46-4.68) H 03/14/18 02:55 Venous Blood Potassium 4.3 mmol/L (3.6-5.2) 03/14/18 04:15 Urine Color Yellow (YELLOW) 03/14/18 05:00 Urine Appearance Clear (CLEAR) 03/14/18 05:00 Urine pH 6.0 (4.7-8.0) 03/14/18 05:00 Ur Specific [place] 1.025 (1.005-1.035) 03/14/18 05:00 Urine Protein Trace mg/dL (<30 mg/dL) H 03/14/18 05:00 Urine Glucose (UA) Negative mg/dL (NEGATIVE) 03/14/18 05:00 Urine Ketones Negative mg/dL (NEGATIVE) 03/14/18 05:00 Urine Blood Negative (NEGATIVE) 03/14/18 05:00 Urine Nitrate Negative (NEGATIVE) 03/14/18 05:00 Urine Bilirubin Negative (NEGATIVE) 03/14/18 05:00 Urine Urobilinogen 0.2 E.U./dL (<1 E.U./dL) 03/14/18 05:00 Ur Leukocyte Esterase Trace Román/uL (NEGATIVE) H 03/14/18 05:00 Urine RBC 0 - 2 /hpf (0-2) 03/14/18 05:00 Urine WBC 1 - 3 /hpf (0-6) 03/14/18 05:00 Ur Epithelial Cells 1 - 3 /hpf (0-5) 03/14/18 05:00 Urine Bacteria None /hpf (NONE) 03/14/18 05:00 Influenza Typ A,B (EIA) Negative for flu a/b (NEGATIVE) 03/14/18 17:39 Ur L.pneumophila Ag Negative (NEGATIVE) 03/14/18 18:30 - Hospital Course Hospital Course: Upon Admission As per HPI: "77 y/o M with PMHx HTN, COPD, CHF, CAD (s/p 2 stents [LAD and RCA] 5-6 year sago), Afib (on xarelto), Hypothyroidism, MS presented with dyspnea on exertion. Patient reports he woke up the night prior to admission and felt short of breath when walking to and from the bathroom [~15 to 20 feet]. 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 Patient also endorses orthopnea [3 pillows] but denies any swelling in his b/l lower extremities. Patient was recently seen at [facility] in Jan 2018 for NSTEMI and sepsis and had a cardiac cath by Dr. Hoffmann. Patient was discharged to [address] for cardiac rehab for 1-2 weeks and recently discharged home on Saturday03/04/18. Since then patient has been seen by Dr. Hoffmann's office and had an EKG done which was unremarkable as per patient. On ROS patient admitted to nausea, constipation [BM every 2-3 days], cough and urinary urgency. He denies any headache, dizziness, palpitations, abd pain, vomiting, pain/swelling in his legs b/l" Hospital Course Patient admitted to [facility]. Patient's blood work, vitals, and imaging reviewed. Patient's troponin on admission elevated at 0.16 with repeat 0.31. EKG had no acute ST changes and patient was asymptomatic for chest pain. Cardiology aware and wanted to treat medically. Patient not a candidate for cardiac cath as unable to deploy stent. Patient's echo Jan 2018 revealed EF 35% with mild to mod concentric LVH, LV normal size, mitral regurg mild to modertae, mild tricuspid regurg RVSP 23mmHg. Patient on entresto however BNP from prior admission 4920 and is now significantly higher. Patient was diuresed and continued on home medications for chronic issues. Patient's elevated WBC and CXR with b/l lower lobe alveolar-type infiltrates and b/l effusions concerning for HCAP. Procal, legionella, flu negative. ID was consulted and patient was placed on Cefepime and Doxy. blood and urine negative and patient was +MRSA in the nares. Patient has Duoneb on board for chronic copd. Patient on ASA and Xarelto; Plavix to be held for 4 weeks as per cardio.Patient continued on home synthroid for hypothyroidism and miralax and dulcolax for chronic constipation. Patient on home Remeron. As per cardio, repeat echo in 6 months, if LVEF still low probably recommend AICD. Patient was walked by PT who recommended [facility]. Patient and family agreeable with plan. Patient clinically improved and was medically optimized and discharged to [facility]. Discharge Exam - Head Exam Head Exam: NORMAL INSPECTION - Additional Findings Additional findings: - Constitutional Appears: No Acute Distress, Chronically Ill - Head Exam Head Exam: ATRAUMATIC, NORMAL INSPECTION, NORMOCEPHALIC - Eye Exam Eye Exam: EOMI, Normal appearance. absent: Conjunctival injection, Scleral icterus - ENT Exam ENT Exam: Mucous Membranes Moist - Respiratory Exam Respiratory Exam: Decreased Breath Sounds, NORMAL BREATHING PATTERN. absent: Accessory Muscle Use, Respiratory Distress - Cardiovascular Exam Cardiovascular Exam: Irregular Rhythm, +S1, +S2 - GI/Abdominal Exam GI & Abdominal Exam: Soft, Normal Bowel Sounds. absent: Firm, Tenderness - Extremities Exam Extremities Exam: Normal Capillary Refill, Normal Inspection. absent: Pedal Edema - Neurological Exam Neurological Exam: Alert, Awake, Oriented x3 - Psychiatric Exam Psychiatric exam: Normal Affect, Normal Mood - Skin Skin Exam: Dry, Intact, Normal Color, Warm Discharge Plan - Discharge Medications Prescriptions: RX: Cefepime IV 2 gm in NS [Maxipime 2gm] 2 gm IVPB Q12 4 Days bag - Follow Up Plan Condition: STABLE Disposition: TRANSF TO SNF Instructions: Exacerbation of COPD (DC), Heart Failure (DC), Pacemaker (DC) Additional Instructions: Please continue all mediations as prescribed at [facility] Referrals: Jake Negron MD [Primary Care Provider] - <Ap Osborne - Last Filed: 03/19/18 19:09> Provider - Provider Date of Admission: 03/14/18 04:20 Attending physician: Ap Osborne MD Primary care physician: Jake Negron MD Consults: 03/14/18 08:11 Cardiology Consult Routine Comment: Consulting Provider: Valeria Hoffmann Consulting Physician: Valeria Hoffmann Reason for Consult: dyspnea on exertion 03/14/18 15:00 Infectious Disease Consult Routine Comment: Consulting Provider: Enio Lagos Consulting Physician: Enio Lagos Reason for Consult: r/o HCAP 03/14/18 17:01 Inpatient [employer] Core Measures Referral Routine Comment: PNEUMONIA Physician Instructions: Reason For Exam: EVALUATION Nursing Referral for Wound Care Routine Comment: AT RISK FOR SKIN BREAKDOWN. ON AN ANTICOAGULANT Physician Instructions: Reason For Exam: EVALUATION Transition In Care/Readmission Reduction Routine Comment: Physician Instructions: Reason For Exam: EVALUATION 03/14/18 17:07 Social Work Referral Routine Comment: DISCHARGE PLANNING TO HOME. Physician Instructions: Reason For Exam: EVALUATION Hospital Course - Lab Results Lab Results: Micro Results 03/14/18 03:25 Blood Blood Culture - Final NO GROWTH AFTER 5 DAYS 03/14/18 03:25 Blood Gram Stain - Final TEST NOT PERFORMED 03/14/18 02:55 Blood Blood Culture - Final NO GROWTH AFTER 5 DAYS 03/14/18 02:55 Blood Gram Stain - Final TEST NOT PERFORMED 03/14/18 18:30 Naris MRSA Culture (Admit) - Final MRSA DETECTED 03/14/18 05:00 Urine Random Urine Culture - Final No Growth (<1,000 CFU/ML) Most Recent Lab Values WBC 11.3 10^3/uL (4.5-11.0) H D 03/18/18 07:00 RBC 4.09 10^6/uL (3.5-6.1) 03/18/18 07:00 Hgb 10.4 g/dL (14.0-18.0) L 03/18/18 07:00 Hct 34.2 % (42.0-52.0) L 03/18/18 07:00 MCV 83.6 fl (80.0-105.0) 03/18/18 07:00 MCH 25.4 pg (25.0-35.0) 03/18/18 07:00 MCHC 30.4 g/dl (31.0-37.0) L 03/18/18 07:00 RDW 18.4 % (11.5-14.5) H 03/18/18 07:00 Plt Count 342 10^3/uL (120.0-450.0) 03/18/18 07:00 MPV 9.3 fl (7.0-11.0) 03/18/18 07:00 Neut % (Auto) 83.8 % (50.0-68.0) H 03/18/18 07:00 Lymph % (Auto) 13.4 % (22.0-35.0) L 03/18/18 07:00 Bullock % (Auto) 2.8 % (1.0-6.0) 03/18/18 07:00 Eos % (Auto) 0.0 % (1.5-5.0) L 03/18/18 07:00 Baso % (Auto) 0.0 % (0.0-3.0) 03/18/18 07:00 Lymph # (Auto) 1.5 (1.2-3.4) 03/18/18 07:00 Bullock # (Auto) 0.3 (0.1-0.6) 03/18/18 07:00 Eos # (Auto) 0.0 (0.0-0.7) 03/18/18 07:00 Baso # (Auto) 0.00 K/mm3 (0.0-2.0) 03/18/18 07:00 Absolute Neuts (auto) 9.46 (1.4-6.5) H 03/18/18 07:00 PT 23.9 SECONDS (9.4-12.5) H 03/14/18 02:55 INR 2.15 03/14/18 02:55 APTT 39.9 Seconds (26.9-38.3) H 03/14/18 02:55 pO2 63 mm/Hg (30-55) H 03/14/18 04:15 VBG pH 7.35 (7.32-7.43) 03/14/18 04:15 VBG pCO2 46.0 (40-60) 03/14/18 04:15 VBG HCO3 25.4 mmol/l (21-28) 03/14/18 04:15 VBG Total CO2 26.8 mmol.L (22-28) 03/14/18 04:15 VBG O2 Sat (Calc) 94.9 % (40-65) H 03/14/18 04:15 VBG Base Excess -0.6 mmol/L (0.0-2.0) L 03/14/18 04:15 VBG Potassium 4.3 mmol/L (3.6-5.2) 03/14/18 04:15 Sodium 141.0 mmol/L (132-148) 03/14/18 04:15 Chloride 110.0 mmol/L (98-107) H 03/14/18 04:15 Glucose 120 mg/dl (75-110) H 03/14/18 04:15 Lactate 1.8 mmol/L (0.7-2.1) 03/14/18 04:15 FiO2 21.0 % 03/14/18 04:15 Sodium 139 mmol/L (132-148) 03/18/18 07:00 Potassium 4.2 mmol/L (3.6-5.0) 03/18/18 07:00 Chloride 105 mmol/L (98-107) 03/18/18 07:00 Carbon Dioxide 28 mmol/L (21-33) 03/18/18 07:00 Anion Gap 11 (10-20) 03/18/18 07:00 BUN 52 mg/dL (7-21) H 03/18/18 07:00 Creatinine 1.2 mg/dl (0.8-1.5) 03/18/18 07:00 Est GFR ( Amer) > 60 03/18/18 07:00 Est GFR (Non-Af Amer) 59 03/18/18 07:00 Random Glucose 141 mg/dL (70-110) H 03/18/18 07:00 Hemoglobin A1c 6.2 % (4.2-6.5) 03/14/18 02:55 Calcium 9.0 mg/dL (8.4-10.5) 03/18/18 07:00 Phosphorus 4.6 mg/dL (2.5-4.5) H 03/15/18 05:30 Magnesium 2.0 mg/dL (1.7-2.2) 03/15/18 05:30 Total Bilirubin 0.4 mg/dL (0.2-1.3) 03/18/18 07:00 AST 35 U/L (17-59) 03/18/18 07:00 ALT 25 U/L (7-56) 03/18/18 07:00 Alkaline Phosphatase 94 U/L (38-126) 03/18/18 07:00 Troponin I 0.27 ng/mL H* 03/14/18 19:26 NT-Pro-B Natriuret Pep 79894 pg/mL (0-450) H 03/14/18 02:55 Total Protein 6.5 g/dL (5.8-8.3) 03/18/18 07:00 Albumin 3.4 g/dL (3.0-4.8) 03/18/18 07:00 Globulin 3.1 gm/dL 03/18/18 07:00 Albumin/Globulin Ratio 1.1 (1.1-1.8) 03/18/18 07:00 Triglycerides 68 mg/dL (35-160) 03/14/18 02:55 Cholesterol 214 mg/dL (130-200) H 03/14/18 02:55 LDL Cholesterol Direct 92 mg/dL (0-129) 03/14/18 02:55 HDL Cholesterol 77 mg/dL (29-60) H 03/14/18 02:55 Procalcitonin 0.15 NG/ML (0.19-0.49) L 03/14/18 15:30 Free T4 1.38 ng/dL (0.78-2.19) 03/14/18 02:55 TSH 3rd Generation 10.20 mIU/mL (0.46-4.68) H 03/14/18 02:55 Venous Blood Potassium 4.3 mmol/L (3.6-5.2) 03/14/18 04:15 Urine Color Yellow (YELLOW) 03/14/18 05:00 Urine Appearance Clear (CLEAR) 03/14/18 05:00 Urine pH 6.0 (4.7-8.0) 03/14/18 05:00 Ur Specific [place] 1.025 (1.005-1.035) 03/14/18 05:00 Urine Protein Trace mg/dL (<30 mg/dL) H 03/14/18 05:00 Urine Glucose (UA) Negative mg/dL (NEGATIVE) 03/14/18 05:00 Urine Ketones Negative mg/dL (NEGATIVE) 03/14/18 05:00 Urine Blood Negative (NEGATIVE) 03/14/18 05:00 Urine Nitrate Negative (NEGATIVE) 03/14/18 05:00 Urine Bilirubin Negative (NEGATIVE) 03/14/18 05:00 Urine Urobilinogen 0.2 E.U./dL (<1 E.U./dL) 03/14/18 05:00 Ur Leukocyte Esterase Trace Román/uL (NEGATIVE) H 03/14/18 05:00 Urine RBC 0 - 2 /hpf (0-2) 03/14/18 05:00 Urine WBC 1 - 3 /hpf (0-6) 03/14/18 05:00 Ur Epithelial Cells 1 - 3 /hpf (0-5) 03/14/18 05:00 Urine Bacteria None /hpf (NONE) 03/14/18 05:00 Influenza Typ A,B (EIA) Negative for flu a/b (NEGATIVE) 03/14/18 17:39 Ur L.pneumophila Ag Negative (NEGATIVE) 03/14/18 18:30 - Hospital Course Hospital Course: Pt seen and examined by me. I have reviewed the note of the medical billing assistant and I agree with it. I have discussed the assessment and plan with the resident. I have reviewed the medications and the last labs. Pt with HCAP and is on IV Abx. He is also has NSTEMI and is on ASA and being followed by Cardiology. He has dyslipidemia and is on statin. He is on Xarelto for his A fib. He has acute CHF due to systolic dysfunction.
[2018-03-18 16:47] VITALS: BP 111/69; PULSE 68; RESP 20; TEMP 97.3
== END 2018-03-18 20:55 | DRG 291 ==
LOC: ED 02:39 → ERH 04:20 → 2RNO 21:40 → 3RNO 03-18 11:01
PROVIDERS: ADMIT Internal Medicine Nephrology; ATTEND Internal Medicine Nephrology
DX: I13.0 Hypertensive heart and chronic kidney disease with heart failure and stage 1 through stage 4 chronic kidney disease, or unspecified chronic kidney disease (principal); I50.23 Acute on chronic systolic (congestive) heart failure; J18.9 Pneumonia, unspecified organism; J44.1 Chronic obstructive pulmonary disease with (acute) exacerbation; C90.00 Multiple myeloma not having achieved remission; J44.0 Chronic obstructive pulmonary disease with (acute) lower respiratory infection; R65.10 Systemic inflammatory response syndrome (SIRS) of non-infectious origin without acute organ dysfunction; I48.2 Chronic atrial fibrillation; N18.9 Chronic kidney disease, unspecified; E03.9 Hypothyroidism, unspecified; E78.5 Hyperlipidemia, unspecified; G35 Multiple sclerosis; G47.30 Sleep apnea, unspecified; I08.1 Rheumatic disorders of both mitral and tricuspid valves; I25.10 Atherosclerotic heart disease of native coronary artery without angina pectoris; I25.2 Old myocardial infarction; I25.5 Ischemic cardiomyopathy; K21.9 Gastro-esophageal reflux disease without esophagitis; K22.70 Barrett's esophagus without dysplasia; K59.09 Other constipation; M41.9 Scoliosis, unspecified; N40.1 Benign prostatic hyperplasia with lower urinary tract symptoms; Y95 Nosocomial condition; Z79.01 Long term (current) use of anticoagulants; Z79.02 Long term (current) use of antithrombotics/antiplatelets; Z79.82 Long term (current) use of aspirin; Z79.890 Hormone replacement therapy; Z86.010 Personal history of colon polyps; Z87.01 Personal history of pneumonia (recurrent); Z87.891 Personal history of nicotine dependence; Z90.49 Acquired absence of other specified parts of digestive tract; Z95.5 Presence of coronary angioplasty implant and graft; Z96.611 Presence of right artificial shoulder joint; Z91.048 Other nonmedicinal substance allergy status; Z22.322 Carrier or suspected carrier of Methicillin resistant Staphylococcus aureus

== ENCOUNTER 2018-04-12 15:17 | Inpatient (IN) | payer MEDICARE ==
[2018-04-12 15:34] VITALS: RESP 18
[2018-04-12] MEDS ORDERED: Morphine 2 mg/ml ISec IVP STA (16:02)
--- NOTE | 2018-04-12 16:14 | RAD ---
HISTORY: sob COMPARISON: Chest x-ray performed 03/14/18 TECHNIQUE: Chest, one view. FINDINGS: LUNGS: Small right pleural effusion and associated atelectasis/infiltrate. Mild left basilar atelectasis. No definite pneumothorax. CARDIOVASCULAR: Cardiomegaly. Atherosclerotic calcifications of the aorta. OSSEOUS STRUCTURES: Degenerative changes of the spine and left shoulder. Partially imaged right shoulder arthroplasty. The multiple solid appearing left rib fracture deformities. VISUALIZED UPPER ABDOMEN: Unremarkable. OTHER FINDINGS: None. IMPRESSION: Cardiomegaly. Small right pleural effusion and associated atelectasis/infiltrate. Mild left basilar atelectasis.
[2018-04-12 16:36] LABS: VENOUS BLOOD GAS BASE EXCESS 4.3 mmol/L (0.0-2.0); VENOUS BLOOD GAS PO2 22 mm/Hg (30-55); VENOUS BLOOD PH 7.35 (7.32-7.43)
[2018-04-12 16:42] LABS: BASO # 0.04 K/mm3 (0.0-2.0); BASO % 0.4 % (0.0-3.0); EOS # 0.3 (0.0-0.7); EOS % 3.1 % (1.5-5.0); HEMOGLOBIN 10.4 g/dL (14.0-18.0); LYMPH # 2.7 (1.2-3.4); LYMPH % 28.1 % (22.0-35.0); MEAN CELL VOLUME 85.5 fl (80.0-105.0); MEAN CORPUSCULAR HGB CONC 30.4 g/dl (31.0-37.0); MEAN PLATELET VOLUME 9.4 fl (7.0-11.0); MONO # 0.7 (0.1-0.6); MONO % 7.1 % (1.0-6.0); WHITE BLOOD COUNT 9.4 10^3/uL (4.5-11.0)
--- NOTE | 2018-04-12 16:44 | ED PDOC ---
Arrival/HPI - General Chief Complaint: Cough, Cold, Congestion Time Seen by Provider: 04/12/18 15:36 Historian: Patient - History of Present Illness Narrative History of Present Illness (Text): 04/12/18 16:50 Patient is a 77 yo male, past medical history of CHF, COPD, atrial fibrillation, multiple sclerosis, recent admission with positive troponin, presents to the Emergency replaced by [facility] with history of hemoptysis. Patient states he was recently at rehab and diagnosed with pneumonia and started on and additional antibiotic since his recent admission. He reports having episodes of coughing up blood occasionally, but he has had more frequent episodes over the past 1-2 days. He denies shortness of breath. He denies chest pain or chest tightness. He reports pain to his right arm which he states is chronic. Denies abdominal pain. Denies palpitations. Denies dizziness or lightheadedness. States that he did not take his blood thinner today. Denies recent trauma or injury. Time/Duration: Prior to Arrival, 1 week Symptom Onset: Gradual Symptom Course: Worsening Past Medical History - Infectious Disease Hx of Infectious Diseases: None - Tetanus Immunization Tetanus Immunization: Unknown - Cardiac Hx Cardiac Disorders: Yes Hx Hypertension: Yes - Pulmonary Hx Chronic Obstructive Pulmonary Disease (COPD): Yes - Neurological Hx Neurological Disorder: Yes (multiple sclerosis dx 2000) Other/Comment: NEUROPATHY, right side weakness due to ms right leg "catches", right side weakness, falls - HEENT Hx HEENT Disorder: Yes Other/Comment: [place], currently usig left hearing aid, right one is broken - Renal Hx Renal Disorder: Yes - Endocrine/Metabolic Hx Hypothyroidism: Yes - Hematological/Oncological Hx Blood Disorders: Yes (MULTIPLE MYELOMA) Hx Anemia: Yes (blood tranfusion x2) - Integumentary Hx Dermatological Disorder: Yes Other/Comment: dermatitis, 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 "I see a chart reader every year, r ft +2 pitting edema dry thisk nails, L ft +1 pitting edema dry skin thick dry toenails, laceration to eyebrows, face, head injury,rib fx's due to falls in past - Musculoskeletal/Rheumatological Hx Arthritis: Yes - Gastrointestinal Hx Gastrointestinal Disorders: Yes Hx Gall Bladder Disease: Yes (gallstones) Hx Gastroesophageal Reflux: Yes Other/Comment: esophageal stenosis, gastritis, colon polyp, barretts esophagus - Genitourinary/Gynecological Hx Genitourinary Disorders: Yes Hx Prostate Problems: Yes (BPH) Other/Comment: us due to right hydrocele, 08/20/12 epididmytis - Psychiatric Hx Emotional Abuse: No Hx Physical Abuse: No Hx Substance Use: No - Surgical History Hx Appendectomy: Yes Hx Cardiac Catheterization: Yes Hx Coronary Stent: Yes (ptca/stents x2 02/2012) Other/Comment: laparotomy, rt supraclavicular node removal, coronary artery angiogram [facility], bilateral medial meniscusectomies, rt inguinal herniorraphy, rt elbow repair OR/IF, trans urethral needle ablation prostate, r shoulder arthroplasty 08/2014, incomplete colonoscopy poor prep 04/15/14 hx polyps, excision lypoma, exploratory lap - Anesthesia Hx Anesthesia Reactions: Yes ("BLEEDING FROM AIRWAY USED") Hx Malignant Hyperthermia: No - Suicidal Assessment Feels Threatened In Home Enviroment: No Family/Social History Smoking Status: Former Smoker Hx Alcohol Use: No Hx Substance Use: No Hx Substance Use Treatment: No Allergies/Home Meds Allergies/Adverse Reactions: Allergies tape Adverse Reaction (Uncoded 03/14/18 16:24) REDNESS Home Medications: Home Meds Medication Instructions Recorded Confirmed Aspirin [Ecotrin] 81 mg PO DAILY 03/14/18 03/14/18 Atorvastatin [Lipitor] 40 mg PO DAILY 03/14/18 03/14/18 Bisacodyl [Dulcolax] 10 mg RC PRN PRN 03/14/18 03/14/18 Carvedilol [Coreg] 3.125 mg PO BID 03/14/18 03/14/18 Clopidogrel [Plavix] 75 mg PO DAILY 03/14/18 03/14/18 Digoxin 0.125 mg PO DAILY 03/14/18 03/14/18 Esomeprazole Magnesium [Nexium] 40 mg PO DAILY 03/14/18 03/14/18 Furosemide [Lasix] 40 mg PO DAILY 03/14/18 03/14/18 Guaifenesin [Coughtab] 200 mg PO DAILY 03/14/18 03/14/18 Isosorbide Mononitrate ER [Imdur 30 mg PO DAILY 03/14/18 03/14/18 ER] Levalbuterol [Xopenex] 45 mcg IH QID 03/14/18 03/14/18 Levothyroxine [Synthroid] 88 mcg PO DAILY 03/14/18 03/14/18 Lisinopril [Zestril] 2.5 mg PO DAILY 03/14/18 03/14/18 Mefloquine [Lariam] 250 mg PO QD7 03/14/18 03/14/18 Mirtazapine [Remeron] 15 mg PO HS 03/14/18 03/14/18 Modafinil 200 mg PO DAILY 03/14/18 03/14/18 Oxycodone HCl/Acetaminophen 1 tab PO Q6 PRN 03/14/18 03/14/18 [Endocet 7.5-325 mg Tablet] Polyethylene Glycol 3350 [Miralax] 17 gm PO DAILY 03/14/18 03/14/18 Rivaroxaban [Xarelto] 15 mg PO DAILY 03/14/18 03/14/18 Sacubitril/Valsartan [Entresto 24 1 tab PO BID 03/14/18 03/14/18 mg-26 mg] Temazepam [Restoril] 30 mg PO HS 03/14/18 03/14/18 Umeclidinium [place] [Incruse 62.5 mcg IH DAILY 03/14/18 03/14/18 Ellipta] predniSONE [predniSONE Tab] 20 mg PO DAILY 03/14/18 03/14/18 Review of Systems - Review of Systems Constitutional: absent: Fatigue, Fevers Eyes: absent: Vision Changes Respiratory: Cough, Sputum. absent: SOB, Wheezing Cardiovascular: absent: Chest Pain, Palpitations, Edema, Calf Pain, RIOJAS Gastrointestinal: absent: Abdominal Pain, Nausea, Vomiting Genitourinary Male: absent: Dysuria Musculoskeletal: Arthralgias, Other. absent: Back Pain Skin: absent: Rash Neurological: absent: Headache, Dizziness Endocrine: absent: Polyuria Hemo/Lymphatic: Easy Bleeding Psychiatric: absent: Depression, Suicidal Ideation Physical Exam - Physical Exam Narrative Physical Exam (Text): Head: Atraumatic. Normocephalic. Eyes: PERRL. EOMI. Conjunctivae are not pale. ENT: Patient wearing mask. No facial edema. No orophyarngeal exudates. No stridor. Neck: Supple. Full ROM. No JVD. No lymphadenopathy. Cardiovascular: Irregular rhythm. Systolim murmur. Distal pulses intact. Pulmonary/Chest: Mild rhonchi at right base, no accessory muscle usage. Mild wheezing. No distress noted. Abdominal: Soft and non-distended. There is no tenderness. No rebound, guarding, or rigidity. No organomegaly. Good bowel sounds. Back: No CVA tenderness. Extremities: Pain noted on palpation with range of motion of right shoulder as well as left upper extremity. No acute edema or erythema. No pitting edema or calf tenderness. Skin: Skin is warm and dry. No petechiae. No purpura. Neurological: Alert, awake, and oriented. Normal speech. Motor and sensory exam at his baseline with no acute focal weakness. Psychiatric: Good eye contact. Normal interaction, affect, and behavior. Vital Signs Reviewed: Yes Vital Signs Temp Pulse Resp BP Pulse Ox 04/12/18 15:31 97.7 F 76 18 121/57 L 95 Temperature: Afebrile Respiratory Rate: Normal Appearance: Positive for: Well-Appearing, Non-Toxic Pain Distress: Moderate Mental Status: Positive for: Alert and Oriented X 3 Medical Decision Making ED Course and Treatment: 04/12/18 18:52 Patient's recent admission as well as discharge summary reviewed. Patient's most recent cxr on record from past admission reviewed. Patient reports hemoptysis for "one week". Reportedly he has had persistent infiltrate noted on chest xray at half-way and was started on Levaquin. He reports hemoptysis for one week but states "more" today. On exam, he denies chest pain or shortness of breath. He has no active bleeding noted since initial evaluation. CXR was obtained which reveals infiltrate vs. atelctasis vs effusion to right lung, although this was compared to most recent chest xray and appears improved from previous. With serial exams in ED, he is not short of breath, not hypoxic. Blood pressure stable. He is afebrile. Initial lactate unremarkable. BNP is elevated although it is improved from recent admission. Troponin 0.12 is improved from previous and he denies chest pain or shortness of breath. He was evaluated by cardiology during past admission for and elevated troponin and medical management was recommended. At this time he is resting comfortably, will be admitted for hemoptysis, abnormal chest xray. CT chest has been ordered and is pending will be endorsed to admitting team for follow-up. - RAD Interpretation Radiology Orders: 04/12/18 15:39 CHEST PORTABLE [RAD] Stat Experimental Box Tester: Radiologist - EKG Interpretation EKG Interpretation (Text): 04/12/18 17:59 normal sinus rhythm with first degree av block with frequent premature ventricular complexes, right bundle branch block Interpreted by ED Physician: Yes Type: 12 lead EKG - Medication Orders Current Medication Orders: Discontinued Medications Morphine Sulfate (Morphine) 2 mg IVP STAT STA Stop: 04/12/18 16:03 Last Admin: 04/12/18 16:33 Dose: 2 mg MAR Pain Assessment Document 04/12/18 16:33 EQ (Rec: 04/12/18 16:33 EQ [id number]) Pain Reassessment Is this a pain reassessment? No Sleep Is patient sleeping during reassessment? No Presence of Pain Presence of Pain Yes IVP Administration Document 04/12/18 16:33 EQ (Rec: 04/12/18 16:33 EQ [id number]) Charges for Administration # of IVP Administrations 1 Disposition/Present on Arrival - Present on Arrival Any Indicators Present on Arrival: No History of DVT/PE: No History of Uncontrolled Diabetes: No Urinary Catheter: No History of Decub. Ulcer: No History Surgical Site Infection Following: None - Disposition Have Diagnosis and Disposition been Completed?: Yes Diagnosis: Hemoptysis, Abnormal chest xray, Arm pain, COPD (chronic obstructive pulmonary disease) Disposition: HOSPITALIZED Disposition Time: 17:30 Patient Plan: Admission Patient Problems: Current Active Problems Problem Status Onset Abnormal chest xray Acute Arm pain Acute Hemoptysis Acute COPD (chronic obstructive pulmonary disease) Chronic Condition: FAIR Forms: [employer] (Portuguese)
[2018-04-12] MEDS ORDERED: Morphine 4 mg/ml ISec IVP STA (16:54)
[2018-04-12 16:56] LABS: INR 1.34; PARTIAL THROMBOPLASTIN TIME 40.4 Seconds (26.9-38.3); PROTHROMBIN TIME 14.9 SECONDS (9.4-12.5); URINE APPEARANCE CLEAR (CLEAR); URINE BILIRUBIN NEGATIVE (NEGATIVE); URINE BLOOD NEGATIVE (NEGATIVE); URINE COLOR YELLOW (YELLOW); URINE GLUCOSE (UA) NEGATIVE (NEGATIVE); URINE LEUKOCYTE ESTERASE NEGATIVE Leu/uL (NEGATIVE); URINE PROTEIN NEGATIVE mg/dL (<30 mg/dL); URINE UROBILINOGEN 0.2 E.U./dL (<1 E.U./dL)
[2018-04-12 17:04] LABS: ALB/GLOB RATIO 1.2 (1.1-1.8); ALBUMIN 3.8 g/dL (3.0-4.8); ALT/SGPT 11 U/L (7-56); AST/SGOT 23 U/L (17-59); B-TYPE NATRIURETIC PEPTIDE 3980 pg/mL (0-450); BLOOD UREA NITROGEN 17 mg/dL (7-21); GFR NON-AFRICAN AMERICAN 59; TROPONIN I 0.12 ng/mL
--- NOTE | 2018-04-12 19:13 | ED PDOC ---
Physical Exam Vital Signs Temp Pulse Resp BP Pulse Ox 04/12/18 17:42 97.8 F 70 18 125/56 L 97 04/12/18 15:31 97.7 F 76 18 121/57 L 95 Medical Decision Making ED Course and Treatment: 04/12/18 19:10 Patient signout received from Dr. Mittal. Patient presents with hemoptypsis after CXR on 03/14/18 showed a new infiltrate. Labs shows elevated BNP(not heart failure) and had been treated with Levaquin under Dr. Sumner(PCP). Pending CT scan. Patient denies any somatic complaints at this time except for right sided arm pain for which had received morphine. - Lab Interpretations Lab Results: pO2 22 mm/Hg (30-55) L 04/12/18 16:30 VBG pH 7.35 (7.32-7.43) 04/12/18 16:30 VBG pCO2 57.0 (40-60) 04/12/18 16:30 VBG HCO3 31.5 mmol/l (21-28) H 04/12/18 16:30 VBG Total CO2 33.2 mmol.L (22-28) H 04/12/18 16:30 VBG O2 Sat (Calc) 36.4 % (40-65) L 04/12/18 16:30 VBG Base Excess 4.3 mmol/L (0.0-2.0) H 04/12/18 16:30 VBG Potassium 4.1 mmol/L (3.6-5.2) 04/12/18 16:30 Sodium 142.0 mmol/L (132-148) 04/12/18 16:30 Chloride 107.0 mmol/L (98-107) 04/12/18 16:30 Glucose 96 mg/dl (75-110) 04/12/18 16:30 Lactate 1.9 mmol/L (0.7-2.1) 04/12/18 16:30 FiO2 21.0 % 04/12/18 16:30 PT 14.9 SECONDS (9.4-12.5) H 04/12/18 16:29 INR 1.34 04/12/18 16:29 APTT 40.4 Seconds (26.9-38.3) H 04/12/18 16:29 Troponin I 0.12 ng/mL D 04/12/18 16:29 NT-Pro-B Natriuret Pep 3980 pg/mL (0-450) H 04/12/18 16:29 Total Bilirubin 0.5 mg/dL (0.2-1.3) 04/12/18 16:29 AST 23 U/L (17-59) 04/12/18 16:29 ALT 11 U/L (7-56) 04/12/18 16:29 Alkaline Phosphatase 100 U/L (38-126) 04/12/18 16:29 Total Protein 7.0 g/dL (5.8-8.3) 04/12/18 16:29 Albumin 3.8 g/dL (3.0-4.8) 04/12/18 16:29 Globulin 3.2 gm/dL 04/12/18 16:29 Albumin/Globulin Ratio 1.2 (1.1-1.8) 04/12/18 16:29 Urine Color Yellow (YELLOW) 04/12/18 16:29 Urine Appearance Clear (CLEAR) 04/12/18 16:29 Urine pH 6.0 (4.7-8.0) 04/12/18 16:29 Ur Specific [place] 1.010 (1.005-1.035) 04/12/18 16:29 Urine Protein Negative mg/dL (<30 mg/dL) 04/12/18 16:29 Urine Glucose (UA) Negative mg/dL (NEGATIVE) 04/12/18 16:29 Urine Ketones Negative mg/dL (NEGATIVE) 04/12/18 16:29 Urine Blood Negative (NEGATIVE) 04/12/18 16:29 Urine Nitrate Negative (NEGATIVE) 04/12/18 16:29 Urine Bilirubin Negative (NEGATIVE) 04/12/18 16:29 Urine Urobilinogen 0.2 E.U./dL (<1 E.U./dL) 04/12/18 16:29 Ur Leukocyte Esterase Negative Román/uL (NEGATIVE) 04/12/18 16:29 04/12/18 16:29 04/12/18 16:29 Lab Results 04/12/18 18:01: Digoxin 1.1 04/12/18 18:01: Influenza Typ A,B (EIA) Negative for flu a/b 04/12/18 16:30: pO2 22 L, VBG pH 7.35, VBG pCO2 57.0, VBG HCO3 31.5 H, VBG Total CO2 33.2 H, VBG O2 Sat (Calc) 36.4 L, VBG Base Excess 4.3 H, VBG Potassium 4.1, Glucose 96, Lactate 1.9, FiO2 21.0, Sodium 142.0, Chloride 107.0, Venous Blood Potassium 4.1 04/12/18 16:29: Sodium 141, Potassium 4.2, Chloride 105, Carbon Dioxide 31, Anion Gap 9 L, BUN 17, Creatinine 1.2, Est GFR ( Amer) > 60, Est GFR (Non-Af Amer) 59, Random Glucose 94, Calcium 9.0, Magnesium 1.9, Total Bilirubin 0.5, AST 23, ALT 11, Alkaline Phosphatase 100, Lactate Dehydrogenase 372, Total Creatine Kinase 35, Troponin I 0.12 D, NT-Pro-B Natriuret Pep 3980 H, Total Protein 7.0, Albumin 3.8, Globulin 3.2, Albumin/Globulin Ratio 1.2 04/12/18 16:29: Urine Color Yellow, Urine Appearance Clear, Urine pH 6.0, Ur Specific [place] 1.010, Urine Protein Negative, Urine Glucose (UA) Negative, Urine Ketones Negative, Urine Blood Negative, Urine Nitrate Negative, Urine Bilirubin Negative, Urine Urobilinogen 0.2, Ur Leukocyte Esterase Negative 04/12/18 16:29: PT 14.9 H, INR 1.34, APTT 40.4 H 04/12/18 16:29: WBC 9.4, RBC 4.00, Hgb 10.4 L, Hct 34.2 L, MCV 85.5, MCH 26.0, MCHC 30.4 L, RDW 18.0 H, Plt Count 308, MPV 9.4, Neut % (Auto) 61.3, Lymph % (Auto) 28.1, [place] % (Auto) 7.1 H, Eos % (Auto) 3.1, Baso % (Auto) 0.4, Lymph # (Auto) 2.7, [place] # (Auto) 0.7 H, Eos # (Auto) 0.3, Baso # (Auto) 0.04, Absolute Neuts (auto) 5.77 I have reviewed the lab results: Yes - RAD Interpretation Radiology Orders: 04/12/18 15:39 CHEST PORTABLE [RAD] Stat 04/12/18 17:54 ANGIO CHEST PE PROTOCOL [CT] Stat - Medication Orders Current Medication Orders: Discontinued Medications Morphine Sulfate (Morphine) 2 mg IVP STAT STA Stop: 04/12/18 16:03 Last Admin: 04/12/18 16:33 Dose: 2 mg MAR Pain Assessment Document 04/12/18 16:33 EQ (Rec: 04/12/18 16:33 EQ [id number]) Pain Reassessment Is this a pain reassessment? No Sleep Is patient sleeping during reassessment? No Presence of Pain Presence of Pain Yes IVP Administration Document 04/12/18 16:33 EQ (Rec: 04/12/18 16:33 EQ [id number]) Charges for Administration # of IVP Administrations 1 Morphine Sulfate (Morphine) 4 mg IVP STAT STA Stop: 04/12/18 16:55 Last Admin: 04/12/18 17:13 Dose: 4 mg MAR Pain Assessment Document 04/12/18 17:13 EQ (Rec: 04/12/18 17:13 EQ [id number]) Pain Reassessment Is this a pain reassessment? Yes Sleep Is patient sleeping during reassessment? No Presence of Pain Presence of Pain Yes IVP Administration Document 04/12/18 17:13 EQ (Rec: 04/12/18 17:13 EQ [id number]) Charges for Administration # of IVP Administrations 1 Disposition/Present on Arrival - Present on Arrival Any Indicators Present on Arrival: No History of DVT/PE: No History of Uncontrolled Diabetes: No Urinary Catheter: No History of Decub. Ulcer: No History Surgical Site Infection Following: None - Disposition Diagnosis: Hemoptysis, Abnormal chest xray, Arm pain, COPD (chronic obstructive pulmonary disease) Disposition: HOSPITALIZED Patient Problems: Current Active Problems Problem Status Onset COPD (chronic obstructive pulmonary disease) Chronic Hemoptysis Acute Abnormal chest xray Acute Arm pain Acute Condition: FAIR Forms: [employer] (Romansh)
[2018-04-12] MEDS ORDERED: Iohexol 350 MG/100 ML VIAL ONE (19:43)
--- NOTE | 2018-04-12 22:44 | CP.PCM.PN ---
Subjective - Date & Time of Evaluation Date of Evaluation: 04/12/18 Time of Evaluation: 22:43 - Subjective Subjective: TBD Rx, Toradol 15 mg ivx1. co-sign order for NPO. Objective - Vital Signs/Intake and Output Vital Signs (last 24 hours): Temp Pulse Resp BP Pulse Ox 97.8 F 70 18 125/56 L 97 04/12/18 17:42 04/12/18 17:42 04/12/18 17:42 04/12/18 17:42 04/12/18 17:42 - Labs Labs: 04/12/18 16:29 04/12/18 16:29 PT 14.9 SECONDS (9.4-12.5) H 04/12/18 16:29 INR 1.34 04/12/18 16:29 APTT 40.4 Seconds (26.9-38.3) H 04/12/18 16:29
[2018-04-12] MEDS ORDERED: Morphine 4 mg/ml ISec IVP ONE (23:00)
--- NOTE | 2018-04-12 23:02 | CP.PCM.PN ---
Subjective - Date & Time of Evaluation Date of Evaluation: 04/12/18 Time of Evaluation: 22:59 - Subjective Subjective: I was asked to co-sign 'NPO' order. Checked with nurse . Who requested pain med for shoulder pain. Lev was evaluated at bed side.. C/O right shoulder pain, left shoulder pain, body aches. States that he had surgery done in right and waiting for surgery in left shoulder. States that he has multiple sclerosis , has burning pain all over body. Refused to accept toradol for pain. Medical record was reviewed. He is here for hemoptysis. Has PMH of CAD, ASHD, HTN, COPD, appendectomy, arthroscopy,BPH, hypothyroidism, multiple sclerosis. Objective - Vital Signs/Intake and Output Vital Signs (last 24 hours): Temp Pulse Resp BP Pulse Ox 98 F 41 L 18 121/53 L 93 L 04/12/18 22:00 04/12/18 22:00 04/12/18 22:00 04/12/18 22:00 04/12/18 22:00 - Medications Medications: Current Medications Oxycodone/Acetaminophen (Percocet 5/325 Mg Tab) 1 tab PO Q6 PRN PRN Reason: Pain, severe (8-10) Stop: 04/16/18 00:01 - Labs Labs: 04/12/18 16:29 04/12/18 16:29 PT 14.9 SECONDS (9.4-12.5) H 04/12/18 16:29 INR 1.34 04/12/18 16:29 APTT 40.4 Seconds (26.9-38.3) H 04/12/18 16:29 - Constitutional Appears: Well, No Acute Distress - Head Exam Head Exam: ATRAUMATIC, NORMAL INSPECTION, NORMOCEPHALIC - Eye Exam Eye Exam: Normal appearance - ENT Exam ENT Exam: Normal External Ear Exam - Neck Exam Neck Exam: Normal Inspection - Respiratory Exam Respiratory Exam: NORMAL BREATHING PATTERN - Cardiovascular Exam Cardiovascular Exam: absent: JVD - GI/Abdominal Exam GI & Abdominal Exam: absent: Distended - Rectal Exam Rectal Exam: Deferred - Exam Additional comments: Deferred. - Extremities Exam Extremities Exam: Normal Inspection - Back Exam Back Exam: NORMAL INSPECTION - Neurological Exam Neurological Exam: Alert, Awake - Psychiatric Exam Psychiatric exam: Normal Affect, Normal Mood - Skin Skin Exam: Normal Color Assessment and Plan - Assessment and Plan (Free Text) Assessment: Body aches. Multiple sclerosis. CAD. HTN COPD. BPH. Neruopathy. Plan: Morphine 4 mg PO only. Awaiting pulmonary consult for hemoptysis. States that he wants only to see him. Nurse instructed. Continue present management.
[2018-04-13 01:18] VITALS: BMI 26.6
[2018-04-13] MEDS: Oxycodone/Acetaminophen 5/325 mg Tab PO PRN ×3 (02:12→20:24)
[2018-04-13] MEDS ORDERED: OXYCODONE HCL PO PRN (09:41)
[2018-04-13] MEDS ORDERED: CODEINE PO PRN (09:41)
[2018-04-13] MEDS ORDERED: [UNRECOGNIZED DRUG - OTHER] PO PRN (09:41)
[2018-04-13] MEDS ORDERED: Tiotropium 18 mcg Cap For Inhalation INH PRN (09:41)
[2018-04-13] MEDS ORDERED: [UNRECOGNIZED DRUG - OTHER] PO PRN (09:41)
[2018-04-13] MEDS ORDERED: Levalbuterol 0.63 MG/3 ML Inhal Soln UD IH PRN ×2 (09:41→10:04)
[2018-04-13] MEDS ORDERED: ACETAMINOPHEN PO PRN (09:41)
[2018-04-13] MEDS ORDERED: PROMETHAZINE HCL PO PRN (09:41)
[2018-04-13] MEDS ORDERED: SACUBITRIL 24mg/VALSARTAN 26mg tab PO SCH (10:00)
[2018-04-13] MEDS ORDERED: Promethazine/Cod 6.25mg-10mg/5ml Syr UD PO PRN (10:10)
[2018-04-13] MEDS: Albuterol-Ipratrop 3 mg / 0.5 (3 ml) UD IH PRN (10:18)
[2018-04-13] MEDS: Digoxin 125 mcg (0.125 mg) Tab PO SCH (12:00)
[2018-04-13] MEDS: Levothyroxine 100 MCG TAB PO SCH (12:00)
[2018-04-13] MEDS: POLYETHYLENE GLYCOL 3350 17 GM/Dose PACKET PO SCH (12:01)
--- NOTE | 2018-04-13 14:16 | CT ---
Date of service: 04/12/2018 CTA chest PE protocol Indication: r/o PE Technique: Contiguous axial images were obtained through the chest with intravenous contrast enhancement. Sagittal and coronal reconstructions were generated and reviewed. This CT exam was performed using 1 or more of the following dose reduction techniques: Automated exposure control, adjustment of the MAA and/or kV according to patient size, and/or use of iterative reconstruction technique. IV contrast: Chest x-ray performed 04/12/18 Radiation dose (DLP): 554.71 MGy-cm. Comparison: Chest x-ray performed 04/12/18 Findings: Examination limited by streak artifact from right shoulder arthroplasty as well as the patient's arms which were not elevated. The inferior thyroid gland is not well visualized obscured by streak artifact. Dense atherosclerotic calcifications of the mediastinal structures, aorta, and branches. Cardiomegaly. Coronary artery calcifications. No large central or segmental pulmonary embolus evident. Small to moderate right pleural effusion. Bilateral compressive consolidations. Medial right lower lobe consolidation extending to the hilum. Limited visualized portions of the upper abdomen appear grossly unremarkable. 2.9 x 6.3 cm fatty density in the left pectoralis muscle presumably due to lipoma. Osseous demineralization. Degenerative changes. Impression: Limited study. No large central or segmental pulmonary embolus identified. Cardiomegaly. Small to moderate right pleural effusion. Bilateral compressive consolidations. Medial right lower lobe consolidation extending to the hilum; correlate clinically for pneumonia. Recommend follow-up upon completion of treatment of acute symptoms in order to assess for complete resolution. 2.9 x 6.3 cm fatty density in the left pectoralis muscle presumably due to lipoma. Additional findings as above. Preliminary impression was provided by [employer].
--- NOTE | 2018-04-13 16:38 | CARD ---
APPROVED REPORT Date of service: 04/12/2018 EKG Measurement Heart [id number] <Conclusion> Sinus rhythm with 1st degree AV block with frequent and consecutive premature ventricular complexes Left axis deviation Right bundle branch block Abnormal ECG
[2018-04-13] MEDS ORDERED: Vancomycin 750mg 750 MG/250 ML BAG IVPB SCH (17:30)
[2018-04-13] MEDS: SACUBITRIL 24mg/VALSARTAN 26mg tab PO SCH (18:11)
--- NOTE | 2018-04-13 20:31 | CON ---
DATE: 04/13/2018 PULMONARY CONSULTATION The patient was evaluated on floor on nasal cannula currently receiving inhalation therapy with DuoNeb and added inhalant steroids. He does not appear to be in respiratory distress. HISTORY OF PRESENT ILLNESS: The patient stated that he was having increasing cough and increasing sputum production. He also noted to have some blood in his sputum when he had a chest x-ray 2 days ago, which also showed some new infiltrates. Additional history obtained from the patient. FAMILY HISTORY: Negative for inherited diseases. SOCIAL HISTORY: Nonsmoker, nondrinker, and never used illicit drugs. ALLERGIES: NO KNOWN ALLERGIES. MEDICATIONS: Reviewed by me as per MAR. REVIEW OF SYSTEMS: Conducted by reviewing all sources. NEUROLOGIC: No complaints. PULMONARY: See history of present illness. CARDIOVASCULAR: No chest pain. No palpitations. GASTROINTESTINAL: No nausea, vomiting or diarrhea. GENITOURINARY: No dysuria or hematuria. The rest of the systems were reviewed and found to be negative. PHYSICAL EXAMINATION: VITAL SIGNS: Temperature 98, respirations 22, blood pressure 130/80, and pulse 84. HEENT: Head is normocephalic and atraumatic. NECK: Supple with no jugular vein distentions. CARDIOVASCULAR: S1 and S2. No S3. Regular. PULMONARY: Diminished breath sounds at both bases with few end-expiratory rhonchi. No wheezing. GASTROINTESTINAL: Soft and nontender. No organomegaly. : Within normal limits EXTREMITIES: No pedal edema. No cyanosis. SKIN: No acute skin rash. NEUROLOGIC: Limited at present time. LABORATORY DATA: Showed an elevated BNP. He was started on Levaquin by Dr. Negron and Dr. Osborne. Due to appearance of blood in the sputum, he was sent for CT angiogram, which is being reviewed right now. The patient had venous blood gas that showed pH of 7.35, pCO2 of 57 and low pO2, but appropriate for the venous blood gas. Other laboratory data reviewed, his liver function test were normal. Cardiac troponin is normal. His BUN was 17 and creatinine is 1.2. BNP was 3980. ASSESSMENT: 1. Chronic obstructive pulmonary disease. 2. Rule out pneumonia. 3. Mild congestive heart failure. PLAN: I have reviewed the patient's most recent chest x-ray, which reveals mild congestive changes at both lung bases, doubt effusion; however, a small area of infiltrate at the right base cannot be ruled out. To me, it appears rather chronic. The patient was already started coverage with cardiac medication digoxin and Carvedilol. He is being treated with inhalation therapy with DuoNeb and added budesonide, also with promethazine and codeine, Spiriva. That is about it for medications. We will observe closely and review his CT chest when available. As I said, currently it is under review. Clinically, he does not appear to have pulmonary emboli; however, occult findings cannot be ruled out. Additional problem on CT scan of chest that does not appear clear on a chest x-ray is small right-sided effusion and atelectatic changes. There is no infiltrate. I will not advise thoracentesis at the present time. Merlin Flaherty MD MTDD
--- NOTE | 2018-04-13 20:48 | HP ---
DATE OF EXAM: 04/13/2018 HISTORY OF PRESENT ILLNESS: The patient is a 77-year-old white male who came to emergency room because of increasing shortness of breath and he coughed up big globs of bloody sputum. He got nervous. He called Dr. Negron who advised him to come to emergency room for further evaluation. Denies any fever or chills. No history of nausea or vomiting. Patient was recently admitted with discharge from [facility] after rehab, 6 or 7 days ago. PAST MEDICAL HISTORY: Significant for; 1. Multiple sclerosis. 2. Chronic AFib, on Xarelto. 3. History of COPD. 4. Congestive heart failure. 5. History of coronary artery disease, status post angioplasty 6. Hypothyroidism. PAST SURGICAL HISTORY: Significant for; 1. Appendectomy. 2. History of right supraclavicular node removal. 3. History of right elbow open reduction and internal fixation. 4. Right inguinal herniorrhaphy. ALLERGIES: HE IS ALLERGIC TO TAPE. MEDICATIONS AT HOME: He is on Percocet. He is on lisinopril 2.5 mg daily. He is on Arnuity. He is on Spiriva, Entresto, omeprazole, Coreg and MiraLax. He is on Remeron, Restoril, Xopenex, isosorbide, digoxin, atorvastatin, aspirin, Lasix, levothyroxine and Xarelto. SOCIAL HISTORY: He used to be smoker and denies any alcohol use. PHYSICAL EXAMINATION: GENERAL: He is awake and alert, able to communicate. He want to eat. For some reason, he was made n.p.o. He states he feels hungry. He denies any chest pain. VITAL SIGNS: He is afebrile, pulse 65, respiration 18, and blood pressure 124/58. LUNGS: Bilateral fair air flow. end-expiratory rhonchi. HEART: S1 and S2 audible. ABDOMEN: Soft, nontender, no rebound, no guarding. NEUROLOGIC: The patient is awake, alert, oriented, communicative. LABORATORY DATA: WBC is 9.4, hemoglobin 10.4, hematocrit 34.2, and platelet 308. PT 14.9 and INR 1.34. Chemistry; sodium 141, potassium 4.2, chloride 105, CO2 of 31, BUN 17, creatinine 1.2, and blood sugar of 59. LFTs are within normal limit. BNP 3980. Urinalysis is unremarkable. Digoxin level is 1.1. Flu test is negative. She had CT scan of the chest done that shows no large central or segmental pulmonary embolus seen. Small to moderate right pleural effusion, bilateral compressive consolidation, medial right lobe consolidation extending to the hilum. Recommended followup and left pectoralis muscle lipoma. ASSESSMENT AND PLAN: 1. Community acquired pneumonia. Patient was recently treated for that and he was sent to rehab. 2. Chronic atrial fibrillation. 3. Cardiomyopathy. 4. Hypertension. 5. Hyperlipidemia. PLAN: Currently, the patient is on carvedilol, he is on digoxin. He is on nebulizer treatment. He is on aspirin 81 mg daily. He is being started on Entresto. He is on isosorbide. We will continue him on Lasix. I will switch it to IV every 12 hours. We will monitor his electrolyte. I will follow up the patient in a.m. Eileen Florez MD
[2018-04-13] MEDS: Cefepime 1gm in NS 100ml 1 GM/100 ML BAG IVPB SCH (21:45)
[2018-04-13] MEDS ORDERED: Non Formulary Medication (Temazepam [Restoril] 30 MG) PO SCH ×4 (22:00)
[2018-04-14] MEDS: Albuterol-Ipratrop 3 mg / 0.5 (3 ml) UD IH PRN (00:42)
[2018-04-14] MEDS: Oxycodone/Acetaminophen 5/325 mg Tab PO PRN ×2 (02:38→09:12)
[2018-04-14] MEDS ORDERED: Budesonide 0.5 mg/2 ml Inhal Susp UD IH SCH (08:00)
[2018-04-14] MEDS ORDERED: Arformoterol 15 mcg/2 ml Inh Sol IH SCH (08:00)
--- NOTE | 2018-04-14 08:23 | PN ---
DATE: 04/14/2018 SUBJECTIVE: The patient appears very comfortable this morning. He is not short of breath at rest. PHYSICAL EXAMINATION: VITAL SIGNS: (Last noted in the computer): Temperature is 97.4, pulse 56, respirations 18, blood pressure 99/53. Oxygen saturation on room air is 99%. HEENT: Normocephalic, atraumatic. No JVD. CARDIOVASCULAR: Positive S1, S2. Questionable S3 gallop. LUNGS: Decreased breath sounds with crackles at the bases. Minimal rhonchi. No wheezing. EXTREMITIES: No clubbing, cyanosis or edema. Calves are nontender to palpation. GASTROINTESTINAL: Abdomen is soft, nontender and nondistended. Bowel sounds are positive. SKIN: No acute rash. NEUROLOGIC: Exam limited at the present time. IMPRESSION: 1. Probable right middle lobe pneumonia. 2. Advanced chronic obstructive pulmonary disease. 3. Congestive heart failure. 4. Bilateral pleural effusions. 5. Multiple sclerosis. PLAN: The patient appears comfortable this morning. He is not short of breath at rest. He does state to feeling much better overall. I did discuss the case with the night nurse at length. The night nurse stated the patient had a very good night. The night nurse also stated that the patient's hemoptysis is now resolving (very small amount over the last shift). I did review the CAT scan of the chest - done on 04/12/2018. There is no pulmonary embolism noted. However, there is a new infiltrate noted in the right middle lobe. As above, there are also bilateral pleural effusions. B-type natriuretic peptide done on 04/12/2018 was significantly elevated. The patient also had an intermediate troponin. The patient is now on intravenous Lasix. On physical exam, there is no significant bronchospasm noted. I will continue with the Spiriva for now. I will also add inhaled Brovana and Pulmicort - in this patient with advanced chronic obstructive pulmonary disease. I would continue with the antibiotic coverage as per Infectious Disease. There are no temperatures noted. Repeat a.m. labs are pending. Clinical status of the patient is definitely improved - compared to the initial presentation. However, given the above, the future status/prognosis for this elderly patient does remain guarded. I will discuss the above with the attending physician. Amanuel Riggins MD [facility] # [id number] AUG[place]
[2018-04-14 08:49] VITALS: PULSE 55; TEMP 97.6; O2SAT 91
[2018-04-14 08:53] LABS: ALBUMIN 3.2 g/dL (3.0-4.8)
[2018-04-14 08:58] LABS: BASO # 0.04 K/mm3 (0.0-2.0); BASO % 0.5 % (0.0-3.0); EOS # 0.3 (0.0-0.7); EOS % 3.4 % (1.5-5.0); HEMOGLOBIN 9.7 g/dL (14.0-18.0); LYMPH # 2.5 (1.2-3.4); LYMPH % 33.1 % (22.0-35.0); MEAN CELL VOLUME 85.4 fl (80.0-105.0); MEAN CORPUSCULAR HEMOGLOBIN 25.7 pg (25.0-35.0); MEAN CORPUSCULAR HGB CONC 30.1 g/dl (31.0-37.0); MEAN PLATELET VOLUME 9.4 fl (7.0-11.0); MONO # 0.6 (0.1-0.6); MONO % 7.6 % (1.0-6.0); RBC 3.77 10^6/uL (3.5-6.1); RED CELL DISTRIBUTION WIDTH 18.2 % (11.5-14.5); WHITE BLOOD COUNT 7.4 10^3/uL (4.5-11.0)
[2018-04-14] MEDS: Tiotropium 18 mcg Cap For Inhalation IH SCH ×2 (09:12→09:50)
[2018-04-14] MEDS: SACUBITRIL 24mg/VALSARTAN 26mg tab PO SCH ×2 (09:13→09:49)
[2018-04-14] MEDS: POLYETHYLENE GLYCOL 3350 17 GM/Dose PACKET PO SCH ×2 (09:14→09:50)
[2018-04-14] MEDS: Levothyroxine 100 MCG TAB PO SCH (09:14)
[2018-04-14] MEDS: Cefepime 1gm in NS 100ml 1 GM/100 ML BAG IVPB SCH (09:14)
[2018-04-14] MEDS: Digoxin 125 mcg (0.125 mg) Tab PO SCH ×2 (09:19→09:33)
[2018-04-14 09:33] VITALS: PULSE 75
[2018-04-14 09:50] VITALS: BP 100/50
--- NOTE | 2018-04-14 12:01 | CON ---
DATE OF CONSULTATION: 04/14/2018 The patient is in bed in no acute distress, nontoxic. CHIEF COMPLAINT: Cough, congestion, shortness of breath times several days. HISTORY OF PRESENT ILLNESS: This is a 77-year-old male with past medical history of multiple sclerosis, congestive heart failure, atrial fibrillation, hypothyroidism, coronary artery disease, chronic obstructive lung disease, hypertension, dyslipidemia, renal disease, and in 12/2017 the patient had a creatinine of 1.9, healthcare-associated pneumonia, the patient was admitted with shortness of breath and cough and a history of smoking, and no chest pain. The patient states he is feeling better right at this time. No blurred vision. No neck pain or sore throat. No abdominal pain, diarrhea or constipation. No bright red blood per rectum. PAST MEDICAL HISTORY: Significant for coronary artery disease and multiple sclerosis, congestive heart failure, atrial fibrillation, hypothyroidism, chronic obstructive lung disease, hypertension, dyslipidemia, and renal disease. PAST SURGICAL HISTORY: Significant for cardiac catheterization with PCI, right inguinal hernia repair, appendectomy, and right elbow ORIF. ALLERGIES: THE PATIENT IS ALLERGIC TO TAPE. MEDICATIONS: Medications at home include the patient to be on oxycodone, Zestril, ferritin, and Coreg. PHYSICAL EXAMINATION: GENERAL: The patient is in bed, in no acute distress. VITAL SIGNS: Temperature of 97, blood pressure is 100/50, respiratory rate of 18, heart rate of 55. HEENT: Unremarkable. NECK: Supple. LUNGS: Have decreased breath sounds. HEART: Normal S1, S2. ABDOMEN: Soft, nontender. LABORATORY DATA: Laboratory examination reveals the patient's white count to be 9.5, hemoglobin of 10, platelets of 308. The patient's chemistries revealed the patient's BNP is 3980. Urinalysis is noted. Toxicology is reviewed. Influenza is negative. Microbiology reveals the blood cultures are negative. The patient had a CT scan of the chest, which shows a consolidation. ASSESSMENT AND PLAN: A 77-year-old male with healthcare-associated pneumonia with acute systolic congestive heart failure on top of chronic congestive heart failure. We will treat the patient with cefepime and doxycycline, discontinue the vancomycin because of history of renal disease, pending boss cultures of sputum and blood cultures, procalcitonin, and Dr. Riggins's progress note from today is reviewed. Dr. Florez's history and physical examination is also reviewed. We will follow closely with you and make further recommendation. He will need a short course of antibiotics for 7 days, today is day #2. Jak Gray MD
--- NOTE | 2018-04-14 12:55 | CP.PCM.DIS ---
<Rico Lundberg - Last Filed: 04/14/18 12:57> Provider - Provider Date of Admission: 04/12/18 18:50 Attending physician: Ap Osborne MD Consults: 04/12/18 17:55 Physician Consult Routine Comment: Consulting Provider: Amanuel Riggins Consulting Physician: Amanuel Riggins Reason for Consult: hemoptysis 04/13/18 17:34 Physician Consult Routine Comment: Consulting Provider: Jak Gray Consulting Physician: Jak Gray Reason for Consult: pneumonia Time Spent in preparation of Discharge (in minutes): 45 Hospital Course - Lab Results Lab Results: Micro Results 04/12/18 16:29 Urine Random Urine Culture - Final No Growth (<1,000 CFU/ML) 04/12/18 16:29 Blood Blood Culture - Preliminary NO GROWTH AFTER 24 HOURS 04/12/18 15:59 Blood Blood Culture - Preliminary NO GROWTH AFTER 24 HOURS Most Recent Lab Values WBC 7.4 10^3/uL (4.5-11.0) D 04/14/18 08:20 RBC 3.77 10^6/uL (3.5-6.1) 04/14/18 08:20 Hgb 9.7 g/dL (14.0-18.0) L 04/14/18 08:20 Hct 32.2 % (42.0-52.0) L 04/14/18 08:20 MCV 85.4 fl (80.0-105.0) 04/14/18 08:20 MCH 25.7 pg (25.0-35.0) 04/14/18 08:20 MCHC 30.1 g/dl (31.0-37.0) L 04/14/18 08:20 RDW 18.2 % (11.5-14.5) H 04/14/18 08:20 Plt Count 302 10^3/uL (120.0-450.0) 04/14/18 08:20 MPV 9.4 fl (7.0-11.0) 04/14/18 08:20 Neut % (Auto) 55.4 % (50.0-68.0) 04/14/18 08:20 Lymph % (Auto) 33.1 % (22.0-35.0) 04/14/18 08:20 [place] % (Auto) 7.6 % (1.0-6.0) H 04/14/18 08:20 Eos % (Auto) 3.4 % (1.5-5.0) 04/14/18 08:20 Baso % (Auto) 0.5 % (0.0-3.0) 04/14/18 08:20 Lymph # (Auto) 2.5 (1.2-3.4) 04/14/18 08:20 [place] # (Auto) 0.6 (0.1-0.6) 04/14/18 08:20 Eos # (Auto) 0.3 (0.0-0.7) 04/14/18 08:20 Baso # (Auto) 0.04 K/mm3 (0.0-2.0) 04/14/18 08:20 Absolute Neuts (auto) 4.10 (1.4-6.5) 04/14/18 08:20 PT 14.9 SECONDS (9.4-12.5) H 04/12/18 16:29 INR 1.34 04/12/18 16:29 APTT 40.4 Seconds (26.9-38.3) H 04/12/18 16:29 pO2 22 mm/Hg (30-55) L 04/12/18 16:30 VBG pH 7.35 (7.32-7.43) 04/12/18 16:30 VBG pCO2 57.0 (40-60) 04/12/18 16:30 VBG HCO3 31.5 mmol/l (21-28) H 04/12/18 16:30 VBG Total CO2 33.2 mmol.L (22-28) H 04/12/18 16:30 VBG O2 Sat (Calc) 36.4 % (40-65) L 04/12/18 16:30 VBG Base Excess 4.3 mmol/L (0.0-2.0) H 04/12/18 16:30 VBG Potassium 4.1 mmol/L (3.6-5.2) 04/12/18 16:30 Sodium 142.0 mmol/L (132-148) 04/12/18 16:30 Chloride 107.0 mmol/L (98-107) 04/12/18 16:30 Glucose 96 mg/dl (75-110) 04/12/18 16:30 Lactate 1.9 mmol/L (0.7-2.1) 04/12/18 16:30 FiO2 21.0 % 04/12/18 16:30 Sodium 138 mmol/L (132-148) 04/14/18 08:20 Potassium 4.7 mmol/L (3.6-5.0) 04/14/18 08:20 Chloride 103 mmol/L (98-107) 04/14/18 08:20 Carbon Dioxide 31 mmol/L (21-33) 04/14/18 08:20 Anion Gap 9 (10-20) L 04/14/18 08:20 BUN 26 mg/dL (7-21) H 04/14/18 08:20 Creatinine 1.5 mg/dl (0.8-1.5) 04/14/18 08:20 Est GFR ( Amer) 55 04/14/18 08:20 Est GFR (Non-Af Amer) 45 04/14/18 08:20 Random Glucose 77 mg/dL (70-110) 04/14/18 08:20 Calcium 9.0 mg/dL (8.4-10.5) 04/14/18 08:20 Magnesium 1.9 mg/dL (1.7-2.2) 04/12/18 16:29 Total Bilirubin 0.4 mg/dL (0.2-1.3) 04/14/18 08:20 AST 24 U/L (17-59) 04/14/18 08:20 ALT 15 U/L (7-56) 04/14/18 08:20 Alkaline Phosphatase 82 U/L (38-126) 04/14/18 08:20 Lactate Dehydrogenase 372 U/L (333-699) 04/12/18 16:29 Total Creatine Kinase 35 U/L (35-230) 04/12/18 16:29 Troponin I 0.12 ng/mL D 04/12/18 16:29 NT-Pro-B Natriuret Pep 3980 pg/mL (0-450) H 04/12/18 16:29 Total Protein 6.3 g/dL (5.8-8.3) 04/14/18 08:20 Albumin 3.2 g/dL (3.0-4.8) 04/14/18 08:20 Globulin 3.1 gm/dL 04/14/18 08:20 Albumin/Globulin Ratio 1.0 (1.1-1.8) L 04/14/18 08:20 Venous Blood Potassium 4.1 mmol/L (3.6-5.2) 04/12/18 16:30 Urine Color Yellow (YELLOW) 04/12/18 16:29 Urine Appearance Clear (CLEAR) 04/12/18 16:29 Urine pH 6.0 (4.7-8.0) 04/12/18 16:29 Ur Specific Richey 1.010 (1.005-1.035) 04/12/18 16:29 Urine Protein Negative mg/dL (<30 mg/dL) 04/12/18 16:29 Urine Glucose (UA) Negative mg/dL (NEGATIVE) 04/12/18 16:29 Urine Ketones Negative mg/dL (NEGATIVE) 04/12/18 16:29 Urine Blood Negative (NEGATIVE) 04/12/18 16:29 Urine Nitrate Negative (NEGATIVE) 04/12/18 16:29 Urine Bilirubin Negative (NEGATIVE) 04/12/18 16:29 Urine Urobilinogen 0.2 E.U./dL (<1 E.U./dL) 04/12/18 16:29 Ur Leukocyte Esterase Negative Román/uL (NEGATIVE) 04/12/18 16:29 Digoxin 1.1 ng/mL (0.8-2.0) 04/12/18 18:01 Influenza Typ A,B (EIA) Negative for flu a/b (NEGATIVE) 04/12/18 18:01 - Hospital Course Hospital Course: 69-year-old male with past medical history of multiple sclerosis, A. fib on Xarelto, COPD, CHF, CAD, and hypothyroidism presents with increasing shortness of breath and cough with bloody sputum. In the ED basic lab work was performed. Chest x-ray showed cardiomegaly, small right pleural effusion and associated atelectasisinfiltrate. Mild left basilar atelectasis. CT of the chest was performed and showed negative for pulmonary embolism, cardiomegaly, small to moderate right pleural effusion, bilateral compressive consolidation, mid medial right lower lobe consolidation extending to the hilum correlate clinically for pneumonia, 3 x 6 cm fatty density in the left pectoralis muscle likely a lipoma. At this time patient was admitted to medical/surgery floor for close observation and treated for HCAP. Infectious disease was consulted and placed the patient on doxycycline and cefepime. Pulmonary team was consulted and placed the patient on duo nebs Brovana, Pulmicort, and Spiriva. Today the patient states that he is feeling much better and his cough has improved. He denies any chest pain or shortness of breath at this time. Septic workup including blood and urine cultures were negative. We will continue doxycycline for 5 days and discharge patient home. Patient states that he has all his medications at home and does not require any refills. Patient instructed to follow-up with his PMD within 3 days. All questions answered. Dx: HCAP COPD CHF CAD Hypothyroidism A. fib on Xarelto Discharge Exam - Head Exam Head Exam: ATRAUMATIC, NORMAL INSPECTION, NORMOCEPHALIC - Eye Exam Eye Exam: EOMI, PERRL Pupil Exam: NORMAL ACCOMODATION - Respiratory Exam Respiratory Exam: Clear to PA & Lateral, Wheezes (mild R sided ). absent: Rales, Rhonchi - Cardiovascular Exam Cardiovascular Exam: REGULAR RHYTHM, +S1, +S2 - GI/Abdominal Exam GI & Abdominal Exam: Normal Bowel Sounds, Soft. absent: Distended, Tenderness - Neurological Exam Neurological exam: Alert, Oriented x3 - Psychiatric Exam Psychiatric exam: Normal Mood - Skin Skin Exam: Dry, Intact, Warm Discharge Plan - Discharge Medications Prescriptions: Doxycycline Hyclate [Doryx] 100 mg PO Q12 #10 cap - Follow Up Plan Condition: IMPROVED Disposition: HOME/ ROUTINE Patient education suggested?: Yes Instructions: Coughing up Blood, Exacerbation of COPD (DC), Checking Your Blood Pressure at Home Additional Instructions: If your symptoms recur come back to the emergency room Follow-up with your PMD within 3 days Take your medications as prescribed including your doxycycline for 5 days. Follow-up with your guide setter within 1 week Referrals: Jak Gray MD [Staff Provider] - Ap Osborne MD [Staff Provider] - Amanuel Riggins MD [Staff Provider] - <Ap Osborne - Last Filed: 04/14/18 17:19> Provider - Provider Date of Admission: 04/12/18 18:50 Attending physician: Ap Osborne MD Consults: 04/12/18 17:55 Physician Consult Routine Comment: Consulting Provider: Amanuel Riggins Consulting Physician: Amanuel Riggins Reason for Consult: hemoptysis 04/13/18 17:34 Physician Consult Routine Comment: Consulting Provider: Jak Gray Consulting Physician: Jak Gray Reason for Consult: pneumonia Hospital Course - Lab Results Lab Results: Micro Results 04/12/18 16:29 Blood Blood Culture - Preliminary NO GROWTH AFTER 48 HOURS 04/12/18 15:59 Blood Blood Culture - Preliminary NO GROWTH AFTER 48 HOURS 04/12/18 16:29 Urine Random Urine Culture - Final No Growth (<1,000 CFU/ML) Most Recent Lab Values WBC 7.4 10^3/uL (4.5-11.0) D 04/14/18 08:20 RBC 3.77 10^6/uL (3.5-6.1) 04/14/18 08:20 Hgb 9.7 g/dL (14.0-18.0) L 04/14/18 08:20 Hct 32.2 % (42.0-52.0) L 04/14/18 08:20 MCV 85.4 fl (80.0-105.0) 04/14/18 08:20 MCH 25.7 pg (25.0-35.0) 04/14/18 08:20 MCHC 30.1 g/dl (31.0-37.0) L 04/14/18 08:20 RDW 18.2 % (11.5-14.5) H 04/14/18 08:20 Plt Count 302 10^3/uL (120.0-450.0) 04/14/18 08:20 MPV 9.4 fl (7.0-11.0) 04/14/18 08:20 Neut % (Auto) 55.4 % (50.0-68.0) 04/14/18 08:20 Lymph % (Auto) 33.1 % (22.0-35.0) 04/14/18 08:20 [place] % (Auto) 7.6 % (1.0-6.0) H 04/14/18 08:20 Eos % (Auto) 3.4 % (1.5-5.0) 04/14/18 08:20 Baso % (Auto) 0.5 % (0.0-3.0) 04/14/18 08:20 Lymph # (Auto) 2.5 (1.2-3.4) 04/14/18 08:20 [place] # (Auto) 0.6 (0.1-0.6) 04/14/18 08:20 Eos # (Auto) 0.3 (0.0-0.7) 04/14/18 08:20 Baso # (Auto) 0.04 K/mm3 (0.0-2.0) 04/14/18 08:20 Absolute Neuts (auto) 4.10 (1.4-6.5) 04/14/18 08:20 PT 14.9 SECONDS (9.4-12.5) H 04/12/18 16:29 INR 1.34 04/12/18 16:29 APTT 40.4 Seconds (26.9-38.3) H 04/12/18 16:29 pO2 22 mm/Hg (30-55) L 04/12/18 16:30 VBG pH 7.35 (7.32-7.43) 04/12/18 16:30 VBG pCO2 57.0 (40-60) 04/12/18 16:30 VBG HCO3 31.5 mmol/l (21-28) H 04/12/18 16:30 VBG Total CO2 33.2 mmol.L (22-28) H 04/12/18 16:30 VBG O2 Sat (Calc) 36.4 % (40-65) L 04/12/18 16:30 VBG Base Excess 4.3 mmol/L (0.0-2.0) H 04/12/18 16:30 VBG Potassium 4.1 mmol/L (3.6-5.2) 04/12/18 16:30 Sodium 142.0 mmol/L (132-148) 04/12/18 16:30 Chloride 107.0 mmol/L (98-107) 04/12/18 16:30 Glucose 96 mg/dl (75-110) 04/12/18 16:30 Lactate 1.9 mmol/L (0.7-2.1) 04/12/18 16:30 FiO2 21.0 % 04/12/18 16:30 Sodium 138 mmol/L (132-148) 04/14/18 08:20 Potassium 4.7 mmol/L (3.6-5.0) 04/14/18 08:20 Chloride 103 mmol/L (98-107) 04/14/18 08:20 Carbon Dioxide 31 mmol/L (21-33) 04/14/18 08:20 Anion Gap 9 (10-20) L 04/14/18 08:20 BUN 26 mg/dL (7-21) H 04/14/18 08:20 Creatinine 1.5 mg/dl (0.8-1.5) 04/14/18 08:20 Est GFR ( Amer) 55 04/14/18 08:20 Est GFR (Non-Af Amer) 45 04/14/18 08:20 Random Glucose 77 mg/dL (70-110) 04/14/18 08:20 Calcium 9.0 mg/dL (8.4-10.5) 04/14/18 08:20 Magnesium 1.9 mg/dL (1.7-2.2) 04/12/18 16:29 Total Bilirubin 0.4 mg/dL (0.2-1.3) 04/14/18 08:20 AST 24 U/L (17-59) 04/14/18 08:20 ALT 15 U/L (7-56) 04/14/18 08:20 Alkaline Phosphatase 82 U/L (38-126) 04/14/18 08:20 Lactate Dehydrogenase 372 U/L (333-699) 04/12/18 16:29 Total Creatine Kinase 35 U/L (35-230) 04/12/18 16:29 Troponin I 0.12 ng/mL D 04/12/18 16:29 NT-Pro-B Natriuret Pep 3980 pg/mL (0-450) H 04/12/18 16:29 Total Protein 6.3 g/dL (5.8-8.3) 04/14/18 08:20 Albumin 3.2 g/dL (3.0-4.8) 04/14/18 08:20 Globulin 3.1 gm/dL 04/14/18 08:20 Albumin/Globulin Ratio 1.0 (1.1-1.8) L 04/14/18 08:20 Procalcitonin 0.07 NG/ML (0.19-0.49) L 04/14/18 07:00 Venous Blood Potassium 4.1 mmol/L (3.6-5.2) 04/12/18 16:30 Urine Color Yellow (YELLOW) 04/12/18 16:29 Urine Appearance Clear (CLEAR) 04/12/18 16:29 Urine pH 6.0 (4.7-8.0) 04/12/18 16:29 Ur Specific [place] 1.010 (1.005-1.035) 04/12/18 16:29 Urine Protein Negative mg/dL (<30 mg/dL) 04/12/18 16:29 Urine Glucose (UA) Negative mg/dL (NEGATIVE) 04/12/18 16:29 Urine Ketones Negative mg/dL (NEGATIVE) 04/12/18 16:29 Urine Blood Negative (NEGATIVE) 04/12/18 16:29 Urine Nitrate Negative (NEGATIVE) 04/12/18 16:29 Urine Bilirubin Negative (NEGATIVE) 04/12/18 16:29 Urine Urobilinogen 0.2 E.U./dL (<1 E.U./dL) 04/12/18 16:29 Ur Leukocyte Esterase Negative Román/uL (NEGATIVE) 04/12/18 16:29 Digoxin 1.1 ng/mL (0.8-2.0) 04/12/18 18:01 Influenza Typ A,B (EIA) Negative for flu a/b (NEGATIVE) 04/12/18 18:01 - Hospital Course Hospital Course: Pt seen and examined by me. I have reviewed the note of the chief medical physicist and I agree with it. I have discussed the assessment and plan with the resident. I have reviewed the medications and the last labs.
--- NOTE | 2018-04-14 22:30 | DS ---
HISTORY OF PRESENT ILLNESS: The patient was seen and examined. I do agree with the note of the medical staff services coordinator, I was involved in the plan of care. The patient was admitted to the hospital because of hemoptysis. He had improvement of his symptoms. He says he has not had any significant hemoptysis since he was admitted to the hospital from the ER. The patient did have CT chest that showed an infiltrate. He had this infiltrate even as [facility], I believe that this is the infiltrate that has not improved after his antibiotics. He does feel better. He was given 2 courses [facility], [facility] the other at the hospital when he was first admitted. The patient is going to be discharged because hemoptysis is better. He feels well. He has COPD that is stable. He has coronary artery disease. The patient has atrial fibrillation, he is on Xarelto. He is advised to follow up for repeat chest x-ray as an outpatient with his primary care doctor. The patient is noted to be discharged home. 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 Ap Osborne MD
== END 2018-04-14 13:14 | disposition home health service (06) | DRG 193 ==
LOC: ED 15:17 → ERH 18:50 → 5RSO 22:07
PROVIDERS: ADMIT Internal Medicine Nephrology; ATTEND Internal Medicine Nephrology
DX: J18.1 Lobar pneumonia, unspecified organism (principal); I50.23 Acute on chronic systolic (congestive) heart failure; J44.0 Chronic obstructive pulmonary disease with (acute) lower respiratory infection; I42.9 Cardiomyopathy, unspecified; R04.2 Hemoptysis; I11.0 Hypertensive heart disease with heart failure; G35 Multiple sclerosis; E03.9 Hypothyroidism, unspecified; I48.2 Chronic atrial fibrillation; I25.10 Atherosclerotic heart disease of native coronary artery without angina pectoris; E78.5 Hyperlipidemia, unspecified; N40.0 Benign prostatic hyperplasia without lower urinary tract symptoms; Y95 Nosocomial condition; Z79.01 Long term (current) use of anticoagulants; Z79.82 Long term (current) use of aspirin

== ENCOUNTER 2018-04-22 15:57 | Inpatient (IN) | payer MEDICARE | END 2018-04-26 14:17 | disposition home or self-care (01) | LOC: 3RNO 04-23 00:33 → ED 15:57 → ERH 21:53 ==

== ENCOUNTER 2018-06-23 11:59 | Emergency (ER) | payer MEDICARE ==
[2018-06-23 12:00] VITALS: PULSE 61; BMI 26.6
[2018-06-23 12:20] VITALS: TEMP 98
[2018-06-23] MEDS ORDERED: Bacitracin 500 Units/gm Oint Foilpak UD ONE (12:44)
--- NOTE | 2018-06-23 12:49 | ED PDOC ---
Arrival/HPI - General Chief Complaint: Trauma Time Seen by Provider: 06/23/18 12:06 Historian: Patient - History of Present Illness Narrative History of Present Illness (Text): 06/23/18 12:24 77 year old M with pmh of CHF, COPD, atrial fibrillation, multiple sclerosis (worst on right side), chronic knee pain and hypertension presents via EMS for medical evaluation s/p mechanical fall prior to arrival at home. Patient reports he was reaching for his walker when he slipped, fell and hit head on the ground. Laceration noted on left forehead above eyebrow, wrapped with gauze bandage by EMS. Patient denies any LOC, headache, dizziness or lightheadedness. He mentioned he took a Xanax prior to fall today for a PET scan scheduled today. Patient recalls b/l leg weakness over the weekend that resulted in a fall, no head trauma or LOC. He is compliant with his medications. He is able to stand and ambulate. He says his MS is currently under control. Patient denies any further acute complaints. Time/Duration: Prior to Arrival Symptom Onset: Sudden Symptom Course: Unchanged Activities at Onset: Light Context: Home Past Medical History - Provider Review Nursing Documentation Reviewed: Yes Primary Care Provider: Jake Negron - Infectious Disease Hx of Infectious Diseases: None - Tetanus Immunization Tetanus Immunization: Unknown - Cardiac Hx Cardiac Disorders: Yes Hx Congestive Heart Failure: Yes Hx Heart Murmur: Yes Hx Hypertension: Yes - Pulmonary Hx Chronic Obstructive Pulmonary Disease (COPD): Yes Hx Pneumonia: Yes Hx Sleep Apnea: Yes - Neurological Hx Neurological Disorder: Yes (multiple sclerosis dx 2000) Hx Multiple Sclerosis: Yes Other/Comment: NEUROPATHY, right side weakness due to ms right leg "catches", right side weakness, falls - HEENT Hx HEENT Disorder: Yes Other/Comment: [place], currently usig left hearing aid, right one is broken - Renal Hx Renal Disorder: Yes - Endocrine/Metabolic Hx Endocrine Disorders: Yes Hx Hypothyroidism: Yes - Hematological/Oncological Hx Blood Disorders: Yes (MULTIPLE MYELOMA) Hx Anemia: Yes (blood tranfusion x2) - Integumentary Hx Dermatological Disorder: Yes Other/Comment: dermatitis, 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 "I see a software project lead every year, r ft +2 pitting edema dry thisk nails, L ft +1 pitting edema dry skin thick dry toenails, laceration to eyebrows, face, head injury,rib fx's due to falls in past - Musculoskeletal/Rheumatological Hx Arthritis: Yes Hx Falls: Yes - Gastrointestinal Hx Gastrointestinal Disorders: Yes Hx Gall Bladder Disease: Yes (gallstones) Hx Gastroesophageal Reflux: Yes Other/Comment: esophageal stenosis, gastritis, colon polyp, barretts esophagus - Genitourinary/Gynecological Hx Genitourinary Disorders: Yes Hx Prostate Problems: Yes (BPH) Other/Comment: us due to right hydrocele, 08/20/12 epididmytis - Psychiatric Hx Psychophysiologic Disorder: No Hx Substance Use: No - Surgical History Hx Appendectomy: Yes Hx Cardiac Catheterization: Yes Hx Coronary Stent: Yes (ptca/stents x2 02/2012) Other/Comment: laparotomy, rt supraclavicular node removal, coronary artery angiogram [facility], bilateral medial meniscusectomies, rt inguinal herniorraphy, rt elbow repair OR/IF, trans urethral needle ablation prostate, r shoulder ar throplasty 08/2014, incomplete colonoscopy poor prep 04/15/14 hx polyps, excision lypoma, exploratory lap - Anesthesia Hx Anesthesia Reactions: Yes ("BLEEDING FROM AIRWAY USED") Hx Malignant Hyperthermia: No - Suicidal Assessment Feels Threatened In Home Enviroment: No Family/Social History - Physician Review Nursing Documentation Reviewed: Yes Family/Social History: Unknown Family HX Smoking Status: Former Smoker Hx Alcohol Use: No Hx Substance Use: No Hx Substance Use Treatment: No Allergies/Home Meds Allergies/Adverse Reactions: Allergies tape Adverse Reaction (Uncoded 06/23/18 12:16) REDNESS Home Medications: Home Meds Medication Instructions Recorded Confirmed Aspirin [Ecotrin] 81 mg PO DAILY 03/14/18 06/23/18 Atorvastatin [Lipitor] 80 mg PO DAILY 03/14/18 06/23/18 Bisacodyl [Dulcolax] 10 mg RC PRN PRN 03/14/18 06/23/18 Carvedilol [Coreg] 3.125 mg PO BID 03/14/18 06/23/18 Guaifenesin [Coughtab] 200 mg PO DAILY 03/14/18 06/23/18 Isosorbide Mononitrate ER [Imdur 30 mg PO DAILY 03/14/18 06/23/18 ER] Levalbuterol [Xopenex] 45 mcg IH QID 03/14/18 06/23/18 Mirtazapine [Remeron] 15 mg PO HS 03/14/18 06/23/18 Polyethylene Glycol 3350 [Miralax] 17 gm PO DAILY 03/14/18 06/23/18 Sacubitril/Valsartan [Entresto 24 1 tab PO BID 03/14/18 06/23/18 mg-26 mg] Temazepam [Restoril] 30 mg PO HS 03/14/18 06/23/18 predniSONE [predniSONE Tab] 20 mg PO DAILY 03/14/18 06/23/18 Levothyroxine [Synthroid] 100 mcg PO DAILY 04/12/18 06/23/18 Oxycodone HCl/Acetaminophen 1 tab PO Q6H PRN 04/12/18 06/23/18 [Endocet 7.5-325 mg Tablet] Promethazine HCl/Codeine 1 tsp PO Q6H PRN 04/12/18 06/23/18 [Prometh-Codein 6.25-10 mg/5 ml] Rivaroxaban [Xarelto] 15 mg PO DAILY 04/12/18 06/23/18 Tiotropium [Spiriva] 1 inh INH PRN PRN 04/12/18 06/23/18 Amiodarone [Cordarone] 200 mg PO MWF 06/23/18 06/23/18 Fluticasone Furoate [Arnuity 100 mcg IH BID 06/23/18 06/23/18 Ellipta] Review of Systems - Physician Review All systems were reviewed & negative as marked: Yes - Review of Systems Constitutional: absent: Fevers ENT: absent: Rhinorrhea, Epistaxis Respiratory: absent: SOB, Cough, Wheezing Cardiovascular: absent: Chest Pain, Palpitations Gastrointestinal: absent: Abdominal Pain, Diarrhea, Nausea, Vomiting, Hematochezia, Hematemesis Genitourinary Male: absent: Dysuria, Hematuria Musculoskeletal: Arthralgias (chronic knee pain). absent: Back Pain, Myalgias Skin: Laceration (Left forehead above eyebrow) Neurological: absent: Headache, Dizziness, Facial Droop, Disequilibrium, Seizure Physical Exam Vital Signs Reviewed: Yes Vital Signs Temp Pulse Resp BP Pulse Ox 06/23/18 12:19 98.0 F 94 H 18 131/66 95 Temperature: Afebrile Blood Pressure: Normal Pulse: Regular Respiratory Rate: Normal Appearance: Positive for: Well-Appearing, Non-Toxic, Comfortable Pain Distress: None Mental Status: Positive for: Alert and Oriented X 3 - Systems Exam Head: Present: Normocephalic, Swelling (left forhead above laceration), Laceration ( to the left forehead above eyebrow) Pupils: Present: PERRL Extroacular Muscles: Present: EOMI Conjunctiva: Present: Normal Ears: Present: Normal, NORMAL TM Mouth: Present: Moist Mucous Membranes Pharnyx: Present: Normal Nose (External): Present: Atraumatic Neck: Present: Normal Range of Motion. No: MIDLINE TENDERNESS, Paraspinal Tenderness Respiratory/Chest: Present: Clear to Auscultation, Good Air Exchange. No: Respi ratory Distress, Accessory Muscle Use Cardiovascular: Present: Regular Rate and Rhythm, Normal S1, S2. No: Murmurs Abdomen: No: Tenderness, Distention, Peritoneal Signs Back: Present: Normal Inspection. No: Midline Tenderness, Paraspinal Tenderness Upper Extremity: Present: Normal Inspection, Normal ROM, NORMAL PULSES, Neurovascularly Intact, Capillary Refill < 2s. No: Tenderness, Swelling, Erythema Lower Extremity: Present: Normal Inspection, NORMAL PULSES, Normal ROM, Capillary Refill < 2 s. No: Swelling, Erythema, Deformity, Neurovascularly Intact Neurological: Present: GCS=15, CN II-XII Intact, Speech Normal, Motor Func Grossly Intact, Normal Sensory Function, Gait Normal (at baseline) Skin: Present: Laceration (noted above to forehead on loeft; skin abrasion on left wrist bleeding controlled; right arm with healed scrab/abrasion, no active bleeding) Psychiatric: Present: Alert, Oriented x 3, Normal Insight, Normal Concentration Medical Decision Making ED Course and Treatment: 06/23/18 12:49 Impression: 77 year old M presents via EMS for medical evaluation s/p mechanical fall prior to arrival at home DDx: Head Injury s/p Mechanical Fall with Left Forehead Laceration r/o Fracture r/o ICH; Left arm and right arm abrasions healing from previous fall Plan: -- Labs -- Tylenol -- CT Cervical Spine w/o contrast -- CT Head w/o contrast -- Reassess and disposition Prior Visits: Notes and results from previous visits were reviewed. Progress Notes: PROCEDURE: LACERATION REPAIR Performed by the emergency provider Location: Left forehead above eyebrow Length: 1.5 cm Description: irregular shape, no foreign body Distal CMS: Normal. No deficits. Neurovascularly intact. Anesthesia: Lidocaine 1% without epi - 2ml Preparation: The wound was cleaned with NS and [place]. The area was prepped and draped in the usual sterile fashion. Exploration: The wound was explored and no foreign bodies were found. Procedure: The wound was closed with 5-0 Green nylon. There was appropriate approximation. In total, 4 interrupted sutures were used. Post-Procedure: Good closure and hemostasis. The patient tolerated the procedure well and there were no complications. CSM remains intact. Post procedure dressing applied. 06/23/18 13:05 Patient stable and was able to stand up without dizziness or lightheadedness. CT pending. 06/23/18 14:12 Patient was noted to have leuokcyotisis at 16, likely due to use of prednisone. Chest X-ray negative, Urinalysis negative. No fever Patient mentions he feels better, no dizziness or lightheadedness. Patient was educated about suture removal in 7-10days. Will discharge. Advised to follow up with PMD. Report back to ER for any worsening conditions. - RAD Interpretation Narrative RAD Interpretations (Text): 06/23/18 14:[address] -- No acute findings Head CT -- No acute intracranial findings Chest X-ray -- No active disease Institutional Research Coordinator: Radiologist - Scribe Statement The provider has reviewed the documentation as recorded by the Val Stone All medical record entries made by the Val were at my direction and personally dictated by me. I have reviewed the chart and agree that the record accurately reflects my personal performance of the history, physical exam, medical decision making, and the department course for this patient. I have also personally directed, reviewed, and agree with the discharge instructions and disposition. Disposition/Present on Arrival - Present on Arrival Any Indicators Present on Arrival: No History of DVT/PE: No History of Uncontrolled Diabetes: No Urinary Catheter: No History of Decub. Ulcer: No History Surgical Site Infection Following: None - Disposition Have Diagnosis and Disposition been Completed?: Yes Diagnosis: Fall, Head injury, Facial laceration, Leukocytosis Disposition: HOME/ ROUTINE Disposition Time: 14:26 Patient Problems: Current Active Problems Problem Status Onset Facial laceration Acute Fall Acute Head injury Acute Leukocytosis Acute Condition: IMPROVED Discharge Instructions (ExitCare): Closed Head Injury (DC), Laceration Repair With Stitches (DC) Additional Instructions: WEN HERNANDEZ, thank you for letting us take care of you today. Your provider was Rhys Srinivasan DO and you were treated for Head Injury with Facial Laceration; Laceration Repair with Sutures; Fall; Leukoycytosis on Home Steroids. The emergency medical care you received today was directed at your acute symptoms. If you were prescribed any medication, please fill it and take as directed. It may take several days for your symptoms to resolve. Return to the Emergency Department if your symptoms worsen, do not improve, or if you have any other problems. YOU WILL NEED TO RETURN TO THE EMERGENCY DEPARTMENT IN 7-10 DAYS FOR A SUTURE REMOVAL. Please contact your doctor or call one of the physicians/clinics you have been referred to that are listed on the Patient Visit Information form that is included in your discharge packet. Bring any paperwork you were given at discharge with you along with any medications you are taking to your follow up visit. Our treatment cannot replace ongoing medical care by a primary care provider outside of the emergency department. Thank you for allowing the [facility] team to be part of your care today. If you had an X-Ray or CT scan: A Radiologist will review the ED reading if any change in treatment is needed we will contact you. If you had a blood, urine, or wound culture: It will take several days for the results, if any change in treatment is needed we will contact you. If you had an STI test: It will take 48 hours for the results. Please call after 1 week if you have not heard back. Prescriptions: Mupirocin 2% Cream [Bactroban Cream] 1 applic TOP BID #1 tube Referrals: Jake Negron MD [Primary Care Provider] - Follow up with primary Forms: [employer] (Lithuanian), WORK NOTE
[2018-06-23 13:21] LABS: BASO # 0.07 K/mm3 (0.0-2.0); BASO % 0.4 % (0.0-3.0); EOS # 0.1 (0.0-0.7); EOS % 0.5 % (1.5-5.0); HEMOGLOBIN 11.6 g/dL (14.0-18.0); LYMPH # 3.7 (1.2-3.4); LYMPH % 22.6 % (22.0-35.0); MEAN CELL VOLUME 86.9 fl (80.0-105.0); MEAN CORPUSCULAR HEMOGLOBIN 26.7 pg (25.0-35.0); MEAN CORPUSCULAR HGB CONC 30.8 g/dl (31.0-37.0); MEAN PLATELET VOLUME 8.8 fl (7.0-11.0); MONO # 0.9 (0.1-0.6); MONO % 5.4 % (1.0-6.0); RBC 4.34 10^6/uL (3.5-6.1); RED CELL DISTRIBUTION WIDTH 17.2 % (11.5-14.5); WHITE BLOOD COUNT 16.3 10^3/uL (4.5-11.0)
[2018-06-23 13:27] LABS: INR 2.26; PARTIAL THROMBOPLASTIN TIME 42.4 Seconds (26.9-38.3); PROTHROMBIN TIME 25.5 SECONDS (9.4-12.5)
[2018-06-23 13:29] LABS: CALCIUM 9.1 mg/dL (8.4-10.5)
--- NOTE | 2018-06-23 13:51 | RAD ---
Date of service: 06/23/2018 HISTORY: h/o copd COMPARISON: 04/22/2018 TECHNIQUE: Chest PA and lateral views FINDINGS: LUNGS: No active pulmonary disease. PLEURA: Bilateral pleural thickening CARDIOVASCULAR: Aortic calcification Normal cardiac size. No pulmonary vascular congestion. OSSEOUS STRUCTURES: No significant abnormalities. VISUALIZED UPPER ABDOMEN: Normal. OTHER FINDINGS: None. IMPRESSION: No active disease.
--- NOTE | 2018-06-23 13:58 | CT ---
Date of service: 06/23/2018 PROCEDURE: CT HEAD WITHOUT CONTRAST. HISTORY: r/o cva COMPARISON: 06/01/2017 TECHNIQUE: Axial computed tomography images were obtained through the head/brain without intravenous contrast. Radiation dose: Total exam DLP = 950.74 mGy-cm. This CT exam was performed using one or more of the following dose reduction techniques: Automated exposure control, adjustment of the mA and/or kV according to patient size, and/or use of iterative reconstruction technique. FINDINGS: HEMORRHAGE: No intracranial hemorrhage. BRAIN: No mass effect or edema. Chronic microvascular changes are seen in the periventricular white matter. VENTRICLES: Unremarkable. No hydrocephalus. CALVARIUM: Unremarkable. PARANASAL SINUSES: Unremarkable as visualized. No significant inflammatory changes. MASTOID AIR CELLS: Unremarkable as visualized. No inflammatory changes. OTHER FINDINGS: Carotid and vertebrobasilar calcifications. IMPRESSION: No acute intracranial findings
[2018-06-23 13:59] LABS: URINE BILIRUBIN NEGATIVE (NEGATIVE); URINE BLOOD NEGATIVE (NEGATIVE); URINE GLUCOSE (UA) NEGATIVE (NEGATIVE); URINE LEUKOCYTE ESTERASE NEGATIVE Leu/uL (NEGATIVE); URINE PROTEIN NEGATIVE mg/dL (<30 mg/dL); URINE UROBILINOGEN 0.2 E.U./dL (<1 E.U./dL)
[2018-06-23 14:00] VITALS: BP 122/53; PULSE 74; RESP 17; O2SAT 96
[2018-06-23 14:01] LABS: URINE APPEARANCE CLEAR (CLEAR); URINE COLOR YELLOW (YELLOW)
--- NOTE | 2018-06-23 14:02 | CT ---
Date of service: 06/23/2018 PROCEDURE: CT Cervical Spine without contrast HISTORY: fall r/o fx COMPARISON: None available. TECHNIQUE: Axial computed tomography images were obtained of the cervical spine without the use of intravenous contrast. Coronal and sagittal reformatted images were created and reviewed. Radiation dose: Total exam DLP = 582.68 mGy-cm. This CT exam was performed using one or more of the following dose reduction techniques: Automated exposure control, adjustment of the mA and/or kV according to patient size, and/or use of iterative reconstruction technique. FINDINGS: VERTEBRAE: No fracture. Normal alignment. No destructive bony lesion. DISCS/SPINAL CANAL/NEURAL FORAMINA: No significant central canal or neural foraminal stenosis. There is disc degeneration in the lower cervical spine. There is facet arthropathy throughout the spine. PARASPINAL SOFT TISSUES: Unremarkable. OTHER FINDINGS: None. IMPRESSION: No acute findings
[2018-06-23] MEDS ORDERED: TDAP Vaccine 0.5 mL Syr IM ONE (14:10)
== END 2018-06-23 14:39 | disposition home or self-care (01) ==
LOC: ED 11:59
DX: S01.81XA Laceration without foreign body of other part of head, initial encounter (principal); W01.0XXA Fall on same level from slipping, tripping and stumbling without subsequent striking against object, initial encounter; D72.829 Elevated white blood cell count, unspecified; I11.0 Hypertensive heart disease with heart failure; I48.91 Unspecified atrial fibrillation; I50.9 Heart failure, unspecified; G35 Multiple sclerosis; J44.9 Chronic obstructive pulmonary disease, unspecified; Z95.5 Presence of coronary angioplasty implant and graft; Z87.891 Personal history of nicotine dependence; Z23 Encounter for immunization

== ENCOUNTER 2018-07-03 18:46 | Inpatient (IN) | payer MEDICARE ==
[2018-07-03 18:46] VITALS: PULSE 61
--- NOTE | 2018-07-03 19:06 | ED PDOC ---
Arrival/HPI - General Chief Complaint: Shortness Of Breath Time Seen by Provider: 07/03/18 18:55 Historian: Patient - Critical Care Critical Care Minutes: 30 minutes - History of Present Illness Narrative History of Present Illness (Text): 07/03/18 18:55 Patient is a 77 year old male, with a past medical history of CHF, COPD, atrial fibrillation, multiple sclerosis (worse on right side), chronic knee pain, and hypertension, who presents to the emergency department complaining of worsening shortness of breath since 2 weeks. Patient notes worsening associated productive cough. Also notes wheezing and generalized body aches. Patient's O2 sat reads 91 on O2 2L, reads 86 w/o O2 currently in the ED/ At baseline, patient O2 reads 91 on room air. Patient informs using nebulizer with no improvement. Patient takes lasix qid and states taking lasix today. Patient denies fevers, night sweats, headache, dizziness, chest pain, abdominal pain, nausea, vomiting, diarrhea, constipation, dysuria, hematuria, numbness / tingling to extremities, or any other complaints. Time/Duration: > week (2 weeks) Symptom Onset: Gradual Symptom Course: Worsening Activities at Onset: Light Context: Home Past Medical History - Provider Review Nursing Documentation Reviewed: Yes - Infectious Disease Hx of Infectious Diseases: None - Tetanus Immunization Tetanus Immunization: Unknown - Cardiac Hx Cardiac Disorders: Yes Hx Congestive Heart Failure: Yes Hx Heart Murmur: Yes Hx Hypertension: Yes - Pulmonary Hx Chronic Obstructive Pulmonary Disease (COPD): Yes Hx Pneumonia: Yes Hx Sleep Apnea: Yes - Neurological Hx Neurological Disorder: Yes (multiple sclerosis dx 2000) Hx Multiple Sclerosis: Yes Other/Comment: NEUROPATHY, right side weakness due to ms right leg "catches", right side weakness, falls - HEENT Hx HEENT Disorder: Yes Other/Comment: [place], currently usig left hearing aid, right one is broken - Renal Hx Renal Disorder: Yes - Endocrine/Metabolic Hx Endocrine Disorders: Yes Hx Hypothyroidism: Yes - Hematological/Oncological Hx Blood Disorders: Yes (MULTIPLE MYELOMA) Hx Anemia: Yes (blood tranfusion x2) - Integumentary Hx Dermatological Disorder: Yes Other/Comment: dermatitis, 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 "I see a millinery teacher every year, r ft +2 pitting edema dry thisk nails, L ft +1 pitting edema dry skin thick dry toenails, laceration to eyebrows, face, head injury,rib fx's due to falls in past - Musculoskeletal/Rheumatological Hx Arthritis: Yes Hx Falls: Yes - Gastrointestinal Hx Gastrointestinal Disorders: Yes Hx Gall Bladder Disease: Yes (gallstones) Hx Gastroesophageal Reflux: Yes Other/Comment: esophageal stenosis, gastritis, colon polyp, barretts esophagus - Genitourinary/Gynecological Hx Genitourinary Disorders: Yes Hx Prostate Problems: Yes (BPH) Other/Comment: us due to right hydrocele, 08/20/12 epididmytis - Psychiatric Hx Psychophysiologic Disorder: No Hx Substance Use: No - Surgical History Hx Appendectomy: Yes Hx Cardiac Catheterization: Yes Hx Coronary Stent: Yes (ptca/stents x2 02/2012) Other/Comment: laparotomy, rt supraclavicular node removal, coronary artery angiogram [facility], bilateral medial meniscusectomies, rt inguinal herniorraphy, rt elbow repair OR/IF, trans urethral needle ablation prostate, r shoulder arthroplasty 08/2014, incomplete colonoscopy poor prep 04/15/14 hx polyps, excision lypoma, exploratory lap - Anesthesia Hx Anesthesia Reactions: Yes ("BLEEDING FROM AIRWAY USED") Hx Malignant Hyperthermia: No - Suicidal Assessment Feels Threatened In Home Enviroment: No Family/Social History - Physician Review Nursing Documentation Reviewed: Yes Family/Social History: Unknown Family HX Smoking Status: Former Smoker Hx Alcohol Use: No Hx Substance Use: No Hx Substance Use Treatment: No Allergies/Home Meds Allergies/Adverse Reactions: Allergies tape Adverse Reaction (Uncoded 07/03/18 18:51) REDNESS Home Medications: Home Meds Medication Instructions Recorded Confirmed Aspirin [Ecotrin] 81 mg PO DAILY 03/14/18 07/03/18 Atorvastatin [Lipitor] 80 mg PO DAILY 03/14/18 07/03/18 Bisacodyl [Dulcolax] 10 mg RC PRN PRN 03/14/18 07/03/18 Carvedilol [Coreg] 3.125 mg PO BID 03/14/18 07/03/18 Guaifenesin [Coughtab] 200 mg PO DAILY 03/14/18 07/03/18 Isosorbide Mononitrate ER [Imdur 30 mg PO DAILY 03/14/18 07/03/18 ER] Levalbuterol [Xopenex] 45 mcg IH QID 03/14/18 07/03/18 Mirtazapine [Remeron] 15 mg PO HS 03/14/18 07/03/18 Polyethylene Glycol 3350 [Miralax] 17 gm PO DAILY 03/14/18 07/03/18 Sacubitril/Valsartan [Entresto 24 1 tab PO BID 03/14/18 07/03/18 mg-26 mg] Temazepam [Restoril] 30 mg PO HS 03/14/18 07/03/18 predniSONE [predniSONE Tab] 20 mg PO DAILY 03/14/18 07/03/18 Levothyroxine [Synthroid] 100 mcg PO DAILY 04/12/18 07/03/18 Oxycodone HCl/Acetaminophen 1 tab PO Q6H PRN 04/12/18 07/03/18 [Endocet 7.5-325 mg Tablet] Promethazine HCl/Codeine 1 tsp PO Q6H PRN 04/12/18 07/03/18 [Prometh-Codein 6.25-10 mg/5 ml] Rivaroxaban [Xarelto] 15 mg PO DAILY 04/12/18 07/03/18 Tiotropium [Spiriva] 1 inh INH PRN PRN 04/12/18 07/03/18 Amiodarone [Cordarone] 200 mg PO MWF 06/23/18 07/03/18 Fluticasone Furoate [Arnuity 100 mcg IH BID 06/23/18 07/03/18 Ellipta] Review of Systems - Physician Review All systems were reviewed & negative as marked: Yes - Review of Systems Constitutional: Other (generalized body aches). absent: Fevers, Night Sweats Respiratory: SOB, Cough, Sputum, Wheezing Cardiovascular: absent: Chest Pain Gastrointestinal: absent: Abdominal Pain, Diarrhea, Nausea, Vomiting Genitourinary Male: absent: Dysuria, Hematuria Musculoskeletal: absent: Other (numbness / tingling to lower extremities) Neurological: absent: Headache, Dizziness Physical Exam Vital Signs Reviewed: Yes Vital Signs Temp Pulse Resp BP Pulse Ox 07/03/18 18:57 98.2 F 79 16 129/69 93 L Temperature: Afebrile Blood Pressure: Normal Pulse: Regular Respiratory Rate: Tachypneic (mild) Appearance: Positive for: Well-Appearing, Non-Toxic, Comfortable Pain Distress: None Mental Status: Positive for: Alert and Oriented X 3 - Systems Exam Head: Present: Atraumatic, Normocephalic Pupils: Present: PERRL Extroacular Muscles: Present: EOMI Conjunctiva: Present: Normal Mouth: Present: Moist Mucous Membranes Neck: Present: Normal Range of Motion Respiratory/Chest: Present: Wheezes (expiratory). No: Accessory Muscle Use, Rales, Rhonchi Cardiovascular: Present: Regular Rate and Rhythm, Normal S1, S2. No: Murmurs, Rub, Gallop Abdomen: Present: Normal Bowel Sounds. No: Tenderness, Distention, Peritoneal Signs, Rebound, Guarding Back: Present: Normal Inspection Upper Extremity: Present: Normal Inspection. No: Cyanosis, Edema Lower Extremity: Present: NORMAL PULSES, Neurovascularly Intact, Capillary Refill < 2 s. No: Edema, Tenderness, Swelling Neurological: Present: GCS=15, CN II-XII Intact, Speech Normal Skin: Present: Warm, Dry, Normal Color. No: Rashes Psychiatric: Present: Alert, Oriented x 3, Normal Insight, Normal Concentration Medical Decision Making ED Course and Treatment: 07/03/18 18:55 Impression: Patient is a 77 year old female, with a past medical history of CHF, COPD, atrial fibrillation, multiple sclerosis (worst on right side), chronic knee pain, and hypertension, who presents to the emergency department complaining of worsening shortness of breath since 2 weeks. Differential Diagnosis included but are not limited to: COPD / CHF excaserbation rule out ACS. Plan: -- EKG -- Labs -- Chest X-Ray -- Duoneb -- Lasix -- SOLU-Medrol -- Reassess and disposition Prior Visits: Notes and results from previous visits were reviewed. Progress Notes: 07/03/18 19:40 CXR with no acute infiltrate. Patient currently getting breathing treatments and is improving. Lungs with better air entry but still wheezing. 07/03/18 20:00 Patient signed out to Dr. Toure to f/u Labs, reevaluate and disposition. - EKG Interpretation EKG Interpretation (Text): 07/03/18 19:30 Reviewed EKG, shows: NSR at 80 BPM. RBBB. Inferior leads have Q waves, no change from previous on 04/15/18 Interpreted by ED Physician: Yes Type: 12 lead EKG - Scribe Statement The provider has reviewed the documentation as recorded by the Davidibanusha Beasley All medical record entries made by the Davidibanusha were at my direction and personally dictated by me. I have reviewed the chart and agree that the record accurately reflects my personal performance of the history, physical exam, medical decision making, and the department course for this patient. I have also personally directed, reviewed, and agree with the discharge instructions and disposition. Disposition/Present on Arrival - Present on Arrival Any Indicators Present on Arrival: No History of DVT/PE: No History of Uncontrolled Diabetes: No Urinary Catheter: No History of Decub. Ulcer: No History Surgical Site Infection Following: None - Disposition Have Diagnosis and Disposition been Completed?: No Diagnosis: CHF (congestive heart failure), COPD (chronic obstructive pulmonary disease) Disposition: HOSPITALIZED Disposition Time: 19:42 Patient Problems: Current Active Problems Problem Status Onset CHF (congestive heart failure) Chronic COPD (chronic obstructive pulmonary disease) Chronic Condition: FAIR
[2018-07-03] MEDS ORDERED: Albuterol-Ipratrop 3 mg / 0.5 (3 ml) UD ONE (19:15)
[2018-07-03] MEDS: Albuterol-Ipratrop 3 mg / 0.5 (3 ml) UD IH SCH ×3 (19:15→19:45)
[2018-07-03 19:46] LABS: VENOUS BLOOD GAS BASE EXCESS 11.8 mmol/L (0.0-2.0); VENOUS BLOOD GAS PO2 16 mm/Hg (30-55); VENOUS BLOOD PH 7.53 (7.32-7.43)
[2018-07-03 20:01] LABS: BASO # 0.04 K/mm3 (0.0-2.0); BASO % 0.4 % (0.0-3.0); EOS # 0.4 (0.0-0.7); EOS % 3.8 % (1.5-5.0); LYMPH # 3.4 (1.2-3.4); MEAN CELL VOLUME 87.5 fl (80.0-105.0); MEAN CORPUSCULAR HEMOGLOBIN 26.7 pg (25.0-35.0); MEAN CORPUSCULAR HGB CONC 30.5 g/dl (31.0-37.0); MEAN PLATELET VOLUME 8.7 fl (7.0-11.0); MONO # 0.8 (0.1-0.6); MONO % 7.4 % (1.0-6.0); RBC 3.75 10^6/uL (3.5-6.1); WHITE BLOOD COUNT 10.9 10^3/uL (4.5-11.0)
[2018-07-03 20:08] LABS: INR 1.2; PARTIAL THROMBOPLASTIN TIME 25.3 Seconds (26.9-38.3); PROTHROMBIN TIME 13.3 SECONDS (9.4-12.5)
[2018-07-03 20:26] LABS: CALCIUM 8.8 mg/dL (8.4-10.5); TROPONIN I 0.1 ng/mL
--- NOTE | 2018-07-03 20:35 | ED PDOC ---
Physical Exam Vital Signs Reviewed: Yes Vital Signs Temp Pulse Resp BP Pulse Ox 07/03/18 19:45 85 22 103/59 L 92 L 07/03/18 19:35 116/61 07/03/18 18:57 98.2 F 79 16 129/69 93 L Temperature: Afebrile Blood Pressure: Normal Pulse: Regular Respiratory Rate: Normal Appearance: Positive for: Well-Appearing, Non-Toxic, Comfortable Pain Distress: None Mental Status: Positive for: Alert and Oriented X 3 Medical Decision Making ED Course and Treatment: 07/03/18 20:00 Received sign out from Dr Srinivasan, patient presents with dyspnea, wheezing, suspected copd exacerbation vs CHF. patient empirically treated and will be admitted to the hospital. Patient does not meet sepsis criteria. Will start empiric abx for potential copd exacerbation. 07/03/18 21:[address] davenport to his service med surg. patient to be admitted for copd exacerbation vs possible chf exacerbation. patient is stable from respiratory standpoint at this time, is not hypoxic, is not in respiratory distress. 07/03/18 21:41 patient given dose of lasix, has the urge to urinate, cannot void, will place costa for suspected retention - Lab Interpretations Lab Results: pO2 16 mm/Hg (30-55) L 07/03/18 19:40 VBG pH 7.53 (7.32-7.43) H 07/03/18 19:40 VBG pCO2 43.0 (40-60) 07/03/18 19:40 VBG HCO3 35.9 mmol/l (21-28) H 07/03/18 19:40 VBG Total CO2 37.2 mmol.L (22-28) H 07/03/18 19:40 VBG O2 Sat (Calc) 33.2 % (40-65) L 07/03/18 19:40 VBG Base Excess 11.8 mmol/L (0.0-2.0) H 07/03/18 19:40 VBG Potassium 3.4 mmol/L (3.6-5.2) L 07/03/18 19:40 Sodium 141.0 mmol/L (132-148) 07/03/18 19:40 Chloride 105.0 mmol/L (98-107) 07/03/18 19:40 Glucose 122 mg/dl (75-110) H 07/03/18 19:40 Lactate 2.5 mmol/L (0.7-2.1) H 07/03/18 19:40 FiO2 21.0 % 07/03/18 19:40 Crit Value Called To Mary Lou kang 07/03/18 19:40 [place] [id number] 07/03/18 19:40 Blood Gas Notified Time 194407/03/18 19:40 PT 13.3 SECONDS (9.4-12.5) H 07/03/18 19:50 INR 1.20 07/03/18 19:50 APTT 25.3 Seconds (26.9-38.3) L 07/03/18 19:50 Troponin I 0.10 ng/mL D 07/03/18 19:50 NT-Pro-B Natriuret Pep 1600 pg/mL (0-450) H 07/03/18 19:50 - RAD Interpretation Radiology Orders: 07/03/18 19:04 CHEST PORTABLE [RAD] Stat - Medication Orders Current Medication Orders: Discontinued Medications Albuterol/Ipratropium (Duoneb 3 Mg/0.5 Mg (3 Ml) Ud) 3 ml IH Q15M DUNIA Stop: 07/03/18 19:46 Last Admin: 07/03/18 19:45 Dose: 3 ml Furosemide (Lasix) 40 mg IVP STAT STA Stop: 07/03/18 19:05 Last Admin: 07/03/18 19:35 Dose: 40 mg MAR Blood Pressure Document 07/03/18 19:35 KV (Rec: 07/03/18 19:45 KV [id number]) Blood Pressure Blood Pressure (100/60-150/90 mm Hg) 116/61 IVP Administration Document 07/03/18 19:35 KV (Rec: 07/03/18 19:45 KV [id number]) Charges for Administration # of IVP Administrations 1 Methylprednisolone (Solu-Medrol) 125 mg IVP STAT STA Stop: 07/03/18 19:05 Last Admin: 07/03/18 19:35 Dose: 125 mg IVP Administration Document 07/03/18 19:35 KV (Rec: 07/03/18 19:46 KV [id number]) Charges for Administration # of IVP Administrations 1 Disposition/Present on Arrival - Present on Arrival Any Indicators Present on Arrival: No History of DVT/PE: No History of Uncontrolled Diabetes: No Urinary Catheter: No History of Decub. Ulcer: No History Surgical Site Infection Following: None - Disposition Have Diagnosis and Disposition been Completed?: Yes Diagnosis: CHF (congestive heart failure), COPD (chronic obstructive pulmonary disease) Disposition: HOSPITALIZED Disposition Time: 20:35 Patient Plan: Admission Patient Problems: Current Active Problems Problem Status Onset CHF (congestive heart failure) Chronic COPD (chronic obstructive pulmonary disease) Chronic Condition: FAIR
[2018-07-03 20:52] LABS: ARTERIAL BLOOD GAS HCO3 26.4 mmol/L (21-28); ARTERIAL BLOOD GAS HEMOGLOBIN 9.7 g/dL (11.7-17.4); ARTERIAL BLOOD GAS O2 CAPACITY 13.2 mL/dl (16-24); ARTERIAL BLOOD GAS O2 CONTENT 12.2 ML/dl (15-23); ARTERIAL BLOOD GAS O2 SAT 92.3 % (95-98); ARTERIAL BLOOD GAS PCO2 24 mm/Hg (35-45); ARTERIAL BLOOD GAS PH 7.65 (7.35-7.45); ARTERIAL BLOOD GAS TCO2 27.1 mmol.L (22-28)
[2018-07-03] MEDS ORDERED: Azithromycin 500 MG in Sodium Chloride 0.9% 250 ML IVPB STA (20:57)
[2018-07-03] MEDS ORDERED: cefTRIAXone 1 GM/100 ML BAG IVPB STA (21:06)
[2018-07-03] MEDS ORDERED: Azithromycin 500MG/NS 250ml 500 MG/250 ML BAG IVPB STA (21:07)
[2018-07-03] MEDS ORDERED: Morphine 4 mg/ml ISec IVP STA (21:33)
[2018-07-03 22:27] LABS: PH,URINE 6.5 (4.7-8.0); URINE BILIRUBIN NEGATIVE (NEGATIVE); URINE BLOOD NEGATIVE (NEGATIVE); URINE GLUCOSE (UA) NEGATIVE (NEGATIVE); URINE LEUKOCYTE ESTERASE NEGATIVE Leu/uL (NEGATIVE); URINE PROTEIN TRACE mg/dL (<30 mg/dL)
[2018-07-03 22:28] LABS: URINE APPEARANCE CLEAR (CLEAR); URINE COLOR YELLOW (YELLOW)
[2018-07-03 22:33] LABS: URINE RBC 0 - 2 /hpf (0-2)
[2018-07-03 22:40] VITALS: BMI 28.2
[2018-07-03] MEDS ORDERED: Pneumococcal 23-Valent Vaccine IM ONE (22:41)
[2018-07-03 23:47] LABS: VENOUS BLOOD GAS PO2 26 mm/Hg (30-55); VENOUS BLOOD PH 7.48 (7.32-7.43)
[2018-07-04] MEDS ORDERED: oxyCODONE 5 mg Immediate Release Tab PO ONE (02:25)
[2018-07-04] MEDS ORDERED: Oxycodone/Acetaminophen 5/325 mg Tab PO ONE (02:26)
[2018-07-04] MEDS: Albuterol-Ipratrop 3 mg / 0.5 (3 ml) UD IH PRN ×2 (04:18→06:29)
[2018-07-04] MEDS: Levothyroxine 100 MCG TAB PO SCH (05:50)
[2018-07-04] MEDS: Budesonide 0.5 mg/2 ml Inhal Susp UD IH SCH ×2 (07:38→19:24)
[2018-07-04] MEDS: Albuterol-Ipratrop 3 mg / 0.5 (3 ml) UD IH SCH ×3 (07:38→19:24)
[2018-07-04] MEDS ORDERED: Albuterol-Ipratrop 3 mg / 0.5 (3 ml) UD IH SCH (08:00)
--- NOTE | 2018-07-04 08:27 | CON ---
DATE OF CONSULTATION: 07/04/2018 PULMONARY CONSULTATION REFERRING PHYSICIAN: Dr. Ap Osborne. REASON FOR CONSULTATION: Chronic obstructive pulmonary disease. HISTORY OF PRESENT ILLNESS: The patient is a chronically ill 77-year-old male, with past medical history significant for advanced chronic obstructive pulmonary disease, on home oxygen, congestive heart failure, coronary artery disease, status post cardiac stents, atrial fibrillation(on xarelto), recent pneumonia, hypothyroidism, multiple sclerosis, who presents to [facility] with a 1-week history of increasing shortness of breath at rest, dyspnea on exertion, cough, and minimal sputum production. There is no history of chest pain, coughing up of blood, or chest pain - made worse with deep respirations. There is no history of temperatures, chills, or infectious exposure. There is no history of night sweats, weight loss, or appetite change prior to the above events. No history of calf pains. No history of syncope or diaphoresis. No history of recent travel or trauma. REVIEW OF SYSTEMS: No history of nausea, vomiting, or diarrhea. No acute urinary symptoms. No new musculoskeletal complaints. Rest of the review of systems is negative. ALLERGIES: NO KNOWN ALLERGIES. SOCIAL HISTORY: Positive for tobacco usage. No alcohol. FAMILY HISTORY: No inheritable diseases. MEDICATIONS: Home medications include prednisone, Spiriva, Restoril, Xarelto, Remeron, Synthroid, Xopenex, isosorbide mononitrate, Lasix, Breo Ellipta, Coreg, Dulcolax, Lipitor, amiodarone. PHYSICAL EXAMINATION: GENERAL: The patient appears comfortable this morning. He is not short of breath at rest. He is not using accessory muscles for breathing. VITAL SIGNS: Temperature is 98.2, pulse 83, respirations 18, last blood pressure recorded 96/51. Oxygen saturation on nasal cannula - 97%. HEENT: Normocephalic, atraumatic. NECK: No JVD. CARDIOVASCULAR: Positive S1, S2. No S3, gallop. LUNGS: Decreased breath sounds at the bases. Mild bilateral rhonchi and wheezing are noted. EXTREMITIES: No clubbing, cyanosis, or edema. Calves are nontender to palpation. GASTROINTESTINAL: Abdomen is soft, nontender and nondistended. Bowel sounds are positive. SKIN: No acute rash. NEUROLOGIC: Exam limited at the present time. PERTINENT LABORATORY DATA: Chest x-ray was done last night and reviewed. There are no new significant abnormalities noted. There are minimal changes at both lung bases. CBC: White count 10.9K, hemoglobin 10.0, hematocrit is 32.8, platelets of 315,000. Complete metabolic profile: BUN 35, creatinine 1.6, glucose 117. B-type natriuretic peptide 1600. Rest of the metabolic profile is within normal limits. IMPRESSION: 1. Acute bronchitis. 2. Advanced chronic obstructive pulmonary disease, on home oxygen. 3. Multiple sclerosis. 4. Mild anemia. 5. Mild renal insufficiency. PLAN: The patient presents to [facility] with a 1-week history of worsening pulmonary symptoms. I did review the chest x-ray as above. Again, there are minimal changes at the bases noted. There are no acute significant abnormalities noted. Official results are pending. I have also reviewed the laboratory data. There is no leukocytosis noted. On physical exam, there is [id number] bronchospasm noted. However, the alveolar arterial gradient is improved/decreased - compared to yesterday. I will continue with the DuoNeb treatments for now. I will also add inhaled Pulmicort and intravenous steroids this morning. The patient was given antibiotic therapy in the emergency room. Again, there is no history of temperatures. There is no leukocytosis. The patient does state to feeling better this morning and is clinically improved. However, given the above, the future status/prognosis for this chronically ill elderly patient does remain guarded. I will discuss the above with Dr. Osborne. Thank you very much for this pulmonary consultation. Amanuel Riggins MD [facility]
--- NOTE | 2018-07-04 09:22 | RAD ---
Date of service: 07/03/2018 HISTORY: sob r/o chf r/o pna COMPARISON: 06/23/2018 TECHNIQUE: 1 view obtained. FINDINGS: LUNGS: No active pulmonary disease. PLEURA: There is pleural thickening and chronic rib fractures on the left. CARDIOVASCULAR: Aortic calcification Normal cardiac size. No pulmonary vascular congestion. OSSEOUS STRUCTURES: No significant abnormalities. VISUALIZED UPPER ABDOMEN: Normal. OTHER FINDINGS: None. IMPRESSION: No active disease.
[2018-07-04] MEDS: SACUBITRIL 24mg/VALSARTAN 26mg tab PO SCH ×2 (09:45→18:55)
[2018-07-04] MEDS: MethylPREDNISolone 40 mg Vial IVP SCH ×2 (09:47→22:23)
--- NOTE | 2018-07-04 12:09 | CP.PCM.HP ---
<Chele Riggs - Last Filed: 07/04/18 19:18> History of Present Illness - History of Present Illness History of Present Illness: Chele Riggs D.O. PGY-3, Internal Medicine Resident, Dr. Osborne's Service, H&P CC: SOB for 2 weeks 77 year old male with a PMH of COPD, HFrEF 35%, HTN, CAD s/p stent, Afib on xarelto, hypothyroidism, multiple sclerosis who presents for complaints of shortness of breath for the last 2 weeks. Patient states that he's been feeling worse and worse and was even not able to go to Dr. Spangler neurologist for his usual Tysabri infusion last week. Patient states that he also had some cough but not much production. Patient tried nebulizer treatments at home without much improvement. Patient has had exacerbations before in the past and knew that he required further therapy so he decided to come in. Denies any sick contacts that he can think of. Denies any recent long travel or periods of immobility. Patient denies any fevers, chills, nausea, vomiting, diarrhea, constipation but does have a chronic indwelling [place]. PMH: As above PSH: Appendectomy, supraclavicular node biopsy, right elbow open reduction internal fixation, right inguinal hernia repair SH: History of tobacco abuse, denies alcohol FH: Noncontributory Medications: Reviewed Allergies: Tape Present on Admission - Present on Admission Any Indicators Present on Admission: No Review of Systems - Review of Systems All systems: reviewed and no additional remarkable complaints except (as per HPI) Past Patient History - Infectious Disease Hx of Infectious Diseases: None - Tetanus Immunizations Tetanus Immunization: Unknown - Past Medical History & Family History Past Medical History?: Yes - Past Social History Smoking Status: Former Smoker - CARDIAC Hx Cardiac Disorders: Yes (afib,mi) Hx Angina: Yes Hx Cardia Arrhythmia: Yes Hx Congestive Heart Failure: Yes Hx Heart Murmur: Yes Hx Hypercholesterolemia: Yes Hx Hypertension: Yes Hx Peripheral Edema: Yes (ble +1) - PULMONARY Hx Respiratory Disorders: Yes Hx Bronchitis: Yes Hx Chronic Obstructive Pulmonary Disease (COPD): Yes Hx Emphysema: Yes Hx Pneumonia: Yes Hx Sleep Apnea: Yes - NEUROLOGICAL Hx Neurological Disorder: Yes (multiple sclerosis dx 2000) Other/Comment: NEUROPATHY, right side weakness due to ms right leg "catches", right side weakness, falls - HEENT Hx HEENT Problems: Yes (hemoptysis) Other/Comment: [place], currently usig left hearing aid, right one is broken - RENAL Hx Chronic Kidney Disease: Yes - ENDOCRINE/METABOLIC Hx Endocrine Disorders: Yes Hx Hypothyroidism: Yes - HEMATOLOGICAL/ONCOLOGICAL Hx Blood Disorders: Yes (MULTIPLE MYELOMA) Hx Anemia: Yes (blood tranfusion x2) - INTEGUMENTARY Hx Dermatological Problems: Yes Other/Comment: dermatitis, 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 "I see a coupon redemption clerk every year, r ft +2 pitting edema dry thick nails, L ft +1 pitting edema dry skin thick dry toenails, pt has fallen in the past and had head injury, lace rations to face and eyebrow, and rib fractures - MUSCULOSKELETAL/RHEUMATOLOGICAL Hx Musculoskeletal Disorders: Yes (ms dx 2000) Hx Arthritis: Yes Hx Falls: Yes (past) Hx Fractures: Yes (ribs 2016) Hx Osteoarthritis: Yes Hx Unsteady Gait: Yes (walker) - GASTROINTESTINAL Hx Gastrointestinal Disorders: Yes (constipation) Hx Gall Bladder Disease: Yes (gallstones) Hx Gastroesophageal Reflux: Yes Other/Comment: esophageal stenosis, gastritis, colon polyp, barretts esophagus, esophageal varicies - GENITOURINARY/GYNECOLOGICAL Hx Genitourinary Disorders: Yes Hx Prostate Problems: Yes (BPH) Other/Comment: us due to right hydrocele, 08/20/12 epididmytis - PSYCHIATRIC Hx Psychophysiologic Disorder: No Hx Substance Use: No - SURGICAL HISTORY Hx Surgeries: Yes Hx Appendectomy: Yes Hx Cardiac Catheterization: Yes Hx Coronary Stent: Yes (ptca/stents x2 02/2012) Other/Comment: laparotomy, rt supraclavicular node removal, coronary artery angiogram SB, bilateral medial meniscusectomies, rt inguinal herniorraphy, rt elbow repair OR/IF, trans urethral needle ablation prostate, r shoulder arthroplasty 08/2014, incomplete colonoscopy poor prep 04/15/14 hx polyps, excision lypoma, exploratory lap - ANESTHESIA Hx Anesthesia Reactions: Yes ("BLEEDING FROM AIRWAY USED") Hx Malignant Hyperthermia: No Meds Home Medications: Home Medication List Medication Instructions Recorded Confirmed Type Lidocaine 2% Viscous 15 ml MM Q3H #1 bottle 07/03/18 Rx Allergies/Adverse Reactions: Allergies Allergy/AdvReac Type Severity Reaction Status Date / Time tape AdvReac REDNESS Uncoded 07/03/18 18:51 Physical Exam - Constitutional Appears: Non-toxic, No Acute Distress - Head Exam Head Exam: ATRAUMATIC, NORMOCEPHALIC - Eye Exam Eye Exam: EOMI. absent: Scleral icterus - ENT Exam ENT Exam: Mucous Membranes Moist. absent: Normal Oropharynx - Neck Exam Neck exam: Positive for: Normal Inspection - Respiratory Exam Respiratory Exam: Wheezes. absent: Rales, Rhonchi - Cardiovascular Exam Cardiovascular Exam: +S1, +S2. absent: Gallop, Rubs - GI/Abdominal Exam GI & Abdominal Exam: Normal Bowel Sounds, Soft. absent: Distended, Tenderness - Exam Additional comments: indwelling costa with yellow urine - Extremities Exam Extremities exam: Negative for: calf tenderness, normal capillary refill - Neurological Exam Neurological exam: Alert, Oriented x3 - Psychiatric Exam Psychiatric exam: Normal Affect, Normal Mood - Skin Skin Exam: Dry, Warm Results - Vital Signs Recent Vital Signs: Last Vital Signs Temp 97.5 F L 07/04/18 06:00 Pulse 79 07/04/18 06:00 Resp 20 07/04/18 06:00 BP 108/62 07/04/18 09:46 Pulse Ox 97 07/04/18 06:00 - Labs Result Diagrams: 07/03/18 19:50 07/03/18 19:50 Labs: Laboratory Results - last 24 hr 07/03/18 07/03/18 07/03/18 19:40 19:50 19:50 WBC 10.9 D RBC 3.75 Hgb 10.0 L Hct 32.8 L MCV 87.5 MCH 26.7 MCHC 30.5 L RDW 18.0 H Plt Count 315 MPV 8.7 Neut % (Auto) 57.4 Lymph % (Auto) 31.0 [place] % (Auto) 7.4 H Eos % (Auto) 3.8 Baso % (Auto) 0.4 Lymph # (Auto) 3.4 [place] # (Auto) 0.8 H Eos # (Auto) 0.4 Baso # (Auto) 0.04 Absolute Neuts (auto) 6.27 PT 13.3 H INR 1.20 APTT 25.3 L pCO2 pO2 16 L HCO3 ABG pH ABG Total CO2 ABG O2 Saturation ABG O2 Content ABG Base Excess ABG Hemoglobin ABG Carboxyhemoglobin POC ABG HHb (Measured) ABG Methemoglobin ABG O2 Capacity VBG pH 7.53 H VBG pCO2 43.0 VBG HCO3 35.9 H VBG Total CO2 37.2 H VBG O2 Sat (Calc) 33.2 L VBG Base Excess 11.8 H VBG Potassium 3.4 L Hgb O2 Saturation Sodium 141.0 Chloride 105.0 Glucose 122 H Lactate 2.5 H FiO2 21.0 Crit Value Called [place] [id number] Blood Gas Notified Time 1944 Potassium Carbon Dioxide Anion Gap BUN Creatinine Est GFR ( Amer) Est GFR (Non-Af Amer) Random Glucose Lactic Acid Calcium Magnesium Lactate Dehydrogenase Total Creatine Kinase Troponin I NT-Pro-B Natriuret Pep Venous Blood Potassium 3.4 L Urine Color Urine Appearance Urine pH Ur Specific [place] Urine Protein Urine Glucose (UA) Urine Ketones Urine Blood Urine Nitrate Urine Bilirubin Urine Urobilinogen Ur Leukocyte Esterase Urine RBC Urine WBC Ur Epithelial Cells 07/03/18 07/03/18 07/03/18 19:50 20:20 22:20 WBC RBC Hgb Hct MCV MCH MCHC RDW Plt Count MPV Neut % (Auto) Lymph % (Auto) [place] % (Auto) Eos % (Auto) Baso % (Auto) Lymph # (Auto) [place] # (Auto) Eos # (Auto) Baso # (Auto) Absolute Neuts (auto) PT INR APTT pCO2 24 L pO2 48.0 L HCO3 26.4 ABG pH 7.65 H* ABG Total CO2 27.1 ABG O2 Saturation 92.3 L ABG O2 Content 12.2 L ABG Base Excess 6.0 H ABG Hemoglobin 9.7 L ABG Carboxyhemoglobin 2.6 H POC ABG HHb (Measured) 7.4 H ABG Methemoglobin 0.9 ABG O2 Capacity 13.2 L VBG pH VBG pCO2 VBG HCO3 VBG Total CO2 VBG O2 Sat (Calc) VBG Base Excess VBG Potassium Hgb O2 Saturation 89.0 L Sodium 140 Chloride 102 Glucose Lactate FiO2 32.0 Crit Value Called [place] [id number] Blood Gas Notified Time 2053 Potassium 3.6 Carbon Dioxide 32 Anion Gap 10 BUN 35 H Creatinine 1.6 H Est GFR ( Amer) 51 Est GFR (Non-Af Amer) 42 Random Glucose 117 H Lactic Acid Calcium 8.8 Magnesium 2.0 Lactate Dehydrogenase 500 Total Creatine Kinase 54 Troponin I 0.10 D NT-Pro-B Natriuret Pep 1600 H Venous Blood Potassium Urine Color Yellow Urine Appearance Clear Urine pH 6.5 Ur Specific [place] 1.010 Urine Protein Trace H Urine Glucose (UA) Negative Urine Ketones Negative Urine Blood Negative Urine Nitrate Negative Urine Bilirubin Negative Urine Urobilinogen 2.0 H Ur Leukocyte Esterase Negative Urine RBC 0 - 2 Urine WBC None Ur Epithelial Cells None 07/03/18 07/04/18 23:27 03:28 WBC RBC Hgb Hct MCV MCH MCHC RDW Plt Count MPV Neut % (Auto) Lymph % (Auto) [place] % (Auto) Eos % (Auto) Baso % (Auto) Lymph # (Auto) [place] # (Auto) Eos # (Auto) Baso # (Auto) Absolute Neuts (auto) PT INR APTT pCO2 pO2 26 L HCO3 ABG pH ABG Total CO2 ABG O2 Saturation ABG O2 Content ABG Base Excess ABG Hemoglobin ABG Carboxyhemoglobin POC ABG HHb (Measured) ABG Methemoglobin ABG O2 Capacity VBG pH 7.48 H VBG pCO2 37.0 L VBG HCO3 27.6 VBG Total CO2 28.7 H VBG O2 Sat (Calc) 47.7 VBG Base Excess 4.0 H VBG Potassium 3.3 L Hgb O2 Saturation Sodium 140.0 Chloride 103.0 Glucose 160 H Lactate 2.3 H FiO2 21.0 Crit Value Called To Jasson coronel rn 5rso Crit Value Called By [facility] Blood Gas Notified Time 2348 Potassium Carbon Dioxide Anion Gap BUN Creatinine Est GFR ( Amer) Est GFR (Non-Af Amer) Random Glucose Lactic Acid 3.5 H Calcium Magnesium Lactate Dehydrogenase Total Creatine Kinase Troponin I NT-Pro-B Natriuret Pep Venous Blood Potassium 3.3 L Urine Color Urine Appearance Urine pH Ur Specific [place] Urine Protein Urine Glucose (UA) Urine Ketones Urine Blood Urine Nitrate Urine Bilirubin Urine Urobilinogen Ur Leukocyte Esterase Urine RBC Urine WBC Ur Epithelial Cells Assessment & Plan - Assessment and Plan (Free Text) Assessment: 77 year old male with a PMH of COPD, HFrEF 35%, HTN, CAD s/p stent, Afib on xarelto, hypothyroidism, multiple sclerosis who presents for complaints of shortness of breath for the last 2 weeks. Plan: 1. COPD exacerbation 2. CAD 3. Heart failure 4. Atrial fibrillation 5. Multiple sclerosis 6. Hypertension 7. Hypothyroidism 8. Anxiety 9. Chronic knee pain Patient will be admitted for further evaluation and treatment. Pulmonary has been consulted, the recommendations have been reviewed and are appreciated. We will have the patient on scheduled and as needed nebulizer treatments as well as Pulmicort and Solu-Medrol 40 every 12. His aspirin and atorvastatin will be continued for his CAD. Cardiology will be consulted. For his heart failure we will continue the patient's home Entresto and [place] as well as carvedilol. For his atrial fibrillation we will continue his home amiodarone as well as Xarelto. Blood pressure is well controlled at this time. For his hypothyroidism we will continue his home dose of levothyroxine 100 mcg. For his anxiety has been continued on his home mirtazapine. For his chronic knee pain we will have the patient on oxycodone/acetaminophen. We will have physical therapy see the patient. We will monitoring this patient closely. Patient was seen and examined his case was discussed at length with attending physician - Date & Time Date: 07/04/18 Time: 07:50 <Ap Osborne S - Last Filed: 07/04/18 19:45> Results - Vital Signs Recent Vital Signs: Last Vital Signs Temp 97.5 F L 07/04/18 06:00 Pulse 79 07/04/18 06:00 Resp 20 07/04/18 06:00 BP 126/74 07/04/18 18:30 Pulse Ox 97 07/04/18 06:00 - Labs Result Diagrams: 07/03/18 19:50 07/03/18 19:50 Labs: Laboratory Results - last 24 hr 07/03/18 07/03/18 07/03/18 19:40 19:50 19:50 WBC 10.9 D RBC 3.75 Hgb 10.0 L Hct 32.8 L MCV 87.5 MCH 26.7 MCHC 30.5 L RDW 18.0 H Plt Count 315 MPV 8.7 Neut % (Auto) 57.4 Lymph % (Auto) 31.0 [place] % (Auto) 7.4 H Eos % (Auto) 3.8 Baso % (Auto) 0.4 Lymph # (Auto) 3.4 [place] # (Auto) 0.8 H Eos # (Auto) 0.4 Baso # (Auto) 0.04 Absolute Neuts (auto) 6.27 PT 13.3 H INR 1.20 APTT 25.3 L pCO2 pO2 16 L HCO3 ABG pH ABG Total CO2 ABG O2 Saturation ABG O2 Content ABG Base Excess ABG Hemoglobin ABG Carboxyhemoglobin POC ABG HHb (Measured) ABG Methemoglobin ABG O2 Capacity VBG pH 7.53 H VBG pCO2 43.0 VBG HCO3 35.9 H VBG Total CO2 37.2 H VBG O2 Sat (Calc) 33.2 L VBG Base Excess 11.8 H VBG Potassium 3.4 L Hgb O2 Saturation Sodium 141.0 Chloride 105.0 Glucose 122 H Lactate 2.5 H FiO2 21.0 Crit Value Called [place] [id number] Blood Gas Notified Time 1944 Potassium Carbon Dioxide Anion Gap BUN Creatinine Est GFR ( Amer) Est GFR (Non-Af Amer) Random Glucose Lactic Acid Calcium Magnesium Lactate Dehydrogenase Total Creatine Kinase Troponin I NT-Pro-B Natriuret Pep Venous Blood Potassium 3.4 L Urine Color Urine Appearance Urine pH Ur Specific [place] Urine Protein Urine Glucose (UA) Urine Ketones Urine Blood Urine Nitrate Urine Bilirubin Urine Urobilinogen Ur Leukocyte Esterase Urine RBC Urine WBC Ur Epithelial Cells 07/03/18 07/03/18 07/03/18 19:50 20:20 22:20 WBC RBC Hgb Hct MCV MCH MCHC RDW Plt Count MPV Neut % (Auto) Lymph % (Auto) [place] % (Auto) Eos % (Auto) Baso % (Auto) Lymph # (Auto) [place] # (Auto) Eos # (Auto) Baso # (Auto) Absolute Neuts (auto) PT INR APTT pCO2 24 L pO2 48.0 L HCO3 26.4 ABG pH 7.65 H* ABG Total CO2 27.1 ABG O2 Saturation 92.3 L ABG O2 Content 12.2 L ABG Base Excess 6.0 H ABG Hemoglobin 9.7 L ABG Carboxyhemoglobin 2.6 H POC ABG HHb (Measured) 7.4 H ABG Methemoglobin 0.9 ABG O2 Capacity 13.2 L VBG pH VBG pCO2 VBG HCO3 VBG Total CO2 VBG O2 Sat (Calc) VBG Base Excess VBG Potassium Hgb O2 Saturation 89.0 L Sodium 140 Chloride 102 Glucose Lactate FiO2 32.0 Crit Value Called [place] [id number] Blood Gas Notified Time 2053 Potassium 3.6 Carbon Dioxide 32 Anion Gap 10 BUN 35 H Creatinine 1.6 H Est GFR ( Amer) 51 Est GFR (Non-Af Amer) 42 Random Glucose 117 H Lactic Acid Calcium 8.8 Magnesium 2.0 Lactate Dehydrogenase 500 Total Creatine Kinase 54 Troponin I 0.10 D NT-Pro-B Natriuret Pep 1600 H Venous Blood Potassium Urine Color Yellow Urine Appearance Clear Urine pH 6.5 Ur Specific [place] 1.010 Urine Protein Trace H Urine Glucose (UA) Negative Urine Ketones Negative Urine Blood Negative Urine Nitrate Negative Urine Bilirubin Negative Urine Urobilinogen 2.0 H Ur Leukocyte Esterase Negative Urine RBC 0 - 2 Urine WBC None Ur Epithelial Cells None 07/03/18 07/04/18 23:27 03:28 WBC RBC Hgb Hct MCV MCH MCHC RDW Plt Count MPV Neut % (Auto) Lymph % (Auto) [place] % (Auto) Eos % (Auto) Baso % (Auto) Lymph # (Auto) [place] # (Auto) Eos # (Auto) Baso # (Auto) Absolute Neuts (auto) PT INR APTT pCO2 pO2 26 L HCO3 ABG pH ABG Total CO2 ABG O2 Saturation ABG O2 Content ABG Base Excess ABG Hemoglobin ABG Carboxyhemoglobin POC ABG HHb (Measured) ABG Methemoglobin ABG O2 Capacity VBG pH 7.48 H VBG pCO2 37.0 L VBG HCO3 27.6 VBG Total CO2 28.7 H VBG O2 Sat (Calc) 47.7 VBG Base Excess 4.0 H VBG Potassium 3.3 L Hgb O2 Saturation Sodium 140.0 Chloride 103.0 Glucose 160 H Lactate 2.3 H FiO2 21.0 Crit Value Called To Jasson coronel rn 5rso Crit Value Called By Js Blood Gas Notified Time 2347 Potassium Carbon Dioxide Anion Gap BUN Creatinine Est GFR ( Amer) Est GFR (Non-Af Amer) Random Glucose Lactic Acid 3.5 H Calcium Magnesium Lactate Dehydrogenase Total Creatine Kinase Troponin I NT-Pro-B Natriuret Pep Venous Blood Potassium 3.3 L Urine Color Urine Appearance Urine pH Ur Specific [place] Urine Protein Urine Glucose (UA) Urine Ketones Urine Blood Urine Nitrate Urine Bilirubin Urine Urobilinogen Ur Leukocyte Esterase Urine RBC Urine WBC Ur Epithelial Cells Assessment & Plan - Assessment and Plan (Free Text) Plan: Pt seen and examined by me. I have reviewed the note of the medical records clerk and I agree with it. I have discussed the assessment and plan with the resident. I have reviewed the medications and the last labs.
--- NOTE | 2018-07-04 18:24 | CARD ---
APPROVED REPORT Date of service: 07/03/2018 EKG Measurement Heart [id number] <Conclusion> Normal sinus rhythm Left axis deviation Right bundle branch block Inferior infarct, age undetermined Abnormal ECG
[2018-07-04] MEDS: Oxycodone/Acetaminophen 5/325 mg Tab PO PRN (21:54)
--- NOTE | 2018-07-04 23:34 | HP ---
DATE OF EXAM: 07/04/2018 HISTORY OF PRESENT ILLNESS: The patient was seen and examined. I do agree with the note of the registered medical assistant. I was involved in the plan of care. The patient has acute COPD exacerbation and has been admitted to the hospital. The patient is on Solu-Medrol nebulizer treatment. He says he is feeling better this morning compared to yesterday. He is on atorvastatin for his dyslipidemia. He had CHF secondary to systolic dysfunction and that is stable. He is on carvedilol for this as well as Entresto. The patient is going to continue with aspirin for his coronary artery disease. He had atrial fibrillation, he is on Xarelto. He will want to continue with his medication. He is on levothyroxine for his hypothyroidism. The patient is on mirtazapine for his anxiety. He has a history of bipolar disorder and he is currently stable on his medications. He has anxiety and this is under control. He is on Percocet for pain because of his knees. He has osteoarthritis. He has multiple sclerosis that is under remission. He is going to be followed closely. Ap Osborne MD
[2018-07-05] MEDS: Albuterol-Ipratrop 3 mg / 0.5 (3 ml) UD IH SCH ×4 (01:26→21:10)
--- NOTE | 2018-07-05 04:01 | CON ---
DATE: 07/04/2018 REASON FOR CONSULTATION: Cardiac evaluation, history of coronary artery disease, admitted with acute exacerbation of COPD, history of paroxysmal AFib, history of coronary artery disease, status post stent, history of cardiomyopathy. BRIEF CLINICAL HISTORY: A 77-year-old male, with past medical history of COPD; cardiomyopathy, ejection fraction 35%; hypertension; history of CAD, status post multiple stents; AFib, on Xarelto; hypothyroidism; multiple sclerosis, came with a complaint of acute exacerbation of COPD and shortness of breath. Denies any chest pain, denies any palpitation. PAST HISTORY: Significant for hypertension; COPD; multiple sclerosis; CAD, status post stent; history of chronic atrial fibrillation, on Xarelto. PAST SURGICAL HISTORY: Significant for a stent as mentioned in LAD and RCA, history of bilateral meniscectomy, right inguinal herniorrhaphy, repair of right elbow fracture, status post OR internal fixation, right shoulder arthroplasty. PREVIOUS CARDIAC WORKUP: The patient had a non-STEMI last admission after having acute cholecystectomy. Underwent cardiac catheterization on the [facility], 02/03/2018. At that time, the cardiac catheterization revealed codominant system, left main, no significant disease. Patent stent noted in the proximal LAD is sticking to the left main with a 50 to 60% stenosis noted in the mid segment. LAD, circumflex, high-grade stenosis, 90% proximal stenosis, 90% OM1 stenosis, RCA distal 60 to 70% stenosis, ejection fraction 35%, EDP in the range of 20, status post PTCA of the proximal circumflex OM1 was done. A stent could not be deployed because a stent in the left mid from ostial is sticking to the left main. Prior to that, the patient had a stent in 2012 of LAD done by Dr. Lopez. The patient's last echo, 02/05/2018, revealed ejection fraction 35%, [id number] mitral regurgitation, [id number] tricuspid regurgitation, RV systolic pressure 23. Last catheterization as mentioned dated 02/03/2018. SOCIAL HISTORY: Denies any history of alcohol abuse. Ex-smoker, quit many years ago. Lives in an assisted living. ALLERGIES: NO KNOWN DRUG ALLERGIES. CURRENT MEDICATIONS: The patient is taking at home prednisone, Spiriva, Restoril, Entresto , Xarelto, promethazine, codeine, levothyroxine, isosorbide nitrate, guaifenesin, aspirin, and amiodarone. REVIEW OF SYSTEMS: As per HPI. PHYSICAL EXAMINATION: GENERAL: Height is 5 feet 6 inches, weight is 175 pounds, body mass index 28.2 kg/m2. VITAL SIGNS: Temperature afebrile, heart rate 78, blood pressure 126/76. HEENT: PERRLA, intact. NECK: Supple. No carotid bruit or thyromegaly. CHEST: Clear to auscultation. CARDIOPULMONARY: S1, S2 regular. ABDOMEN: Soft. EXTREMITIES: Clubbing, cyanosis negative. DIAGNOSTIC DATA: EKG shows normal sinus, left axis deviation. Right bundle-branch block with inferior wall ND of undetermined age. Blood workup: WBC 10, hemoglobin 10, hematocrit 32.8, platelet count 315. Chemistry shows sodium 140, potassium 3.6, chloride 102, carbon dioxide 32, anion gap of 20, BUN 35, creatinine 1.6. BNP 1600. IMPRESSION: A 77-year-old male with past medical history significant for chronic obstructive pulmonary disease, advanced; history of coronary artery disease, status post stent in 2012; and recently on the [facility], 02/03/2018, plain balloon angioplasty of the circumflex, history of paroxysmal atrial fibrillation, on Xarelto, admitted with acute exacerbation of chronic obstructive pulmonary disease. So far, no evidence of acute myocardial infarction. The patient has a creatinine clearance of 14 mL an hour. Troponin 0.1, most likely secondary to renal insufficiency. The patient denies any chest pain, shortness of breath, or any palpitation. RECOMMENDATIONS: Resume back medication including amiodarone to maintain sinus, Coreg 3.125, Entresto, isosorbide nitrate, and Xarelto. We will follow with you. We will get lipid profile, TSH, hemoglobin A1c. Thank you Dr. Osborne for providing us the opportunity in taking care of the patient. Valeria Hoffmann MD
[2018-07-05] MEDS: Levothyroxine 100 MCG TAB PO SCH (06:47)
--- NOTE | 2018-07-05 07:18 | CP.PCM.PN ---
Subjective - Date & Time of Evaluation Date of Evaluation: 07/05/18 Time of Evaluation: 06:50 - Subjective Subjective: Awake, no distress Reason for consultation and follow up: Cardiac evaluation of shortness of breath, admitted for exacerbation of COPD, history of coronary artery disease, congestive heart failure, atrial fibrillation Seen and examined by me and Dr. Hoffmann Objective - Vital Signs/Intake and Output Vital Signs (last 24 hours): Temp Pulse Resp BP Pulse Ox 98 F 74 18 101/57 L 94 L 07/04/18 22:00 07/04/18 22:00 07/04/18 22:00 07/04/18 22:00 07/04/18 22:00 Intake and Output: 07/05/18 07/05/18 06:59 18:59 Intake Total 0 Output Total 1000 Balance -1000 - Medications Medications: Current Medications Albuterol/Ipratropium (Duoneb 3 Mg/0.5 Mg (3 Ml) Ud) 3 ml IH Q2H PRN PRN Reason: Shortness of Breath Last Admin: 07/04/18 06:29 Dose: 3 ml Albuterol/Ipratropium (Duoneb 3 Mg/0.5 Mg (3 Ml) Ud) 3 ml IH [id number] [facility] Last Admin: 07/05/18 01:26 Dose: Not Given Amiodarone HCl (Cordarone) 200 mg PO MWF [facility] Last Admin: 07/04/18 09:46 Dose: 200 mg Aspirin (Ecotrin) 81 mg PO DAILY [facility] Last Admin: 07/04/18 09:45 Dose: 81 mg Atorvastatin Calcium (Lipitor) 80 mg PO HS [facility] Last Admin: 07/04/18 21:56 Dose: 80 mg Budesonide (Pulmicort Respules) 0.5 mg IH [id number] [facility] Last Admin: 07/04/18 19:24 Dose: 0.5 mg Carvedilol (Coreg) 3.125 mg PO BID [facility] Last Admin: 07/04/18 18:30 Dose: 3.125 mg Isosorbide Mononitrate (Imdur Er) 30 mg PO DAILY [facility] Last Admin: 07/04/18 09:45 Dose: 30 mg Levothyroxine Sodium (Synthroid) 100 mcg PO 0600 [facility] Last Admin: 07/05/18 06:47 Dose: 100 mcg Methylprednisolone (Solu-Medrol) 40 mg IVP Q12 [facility] Last Admin: 07/04/18 22:23 Dose: 40 mg Mirtazapine (Remeron) 15 mg PO HS [facility] Last Admin: 07/04/18 21:54 Dose: 15 mg Oxycodone/Acetaminophen (Percocet 5/325 Mg Tab) 1 tab PO Q6H PRN PRN Reason: Pain, severe (8-10) Stop: 07/07/18 19:26 Last Admin: 07/04/18 21:54 Dose: 1 tab Rivaroxaban (Xarelto) 15 mg PO DAILY [facility]; Protocol Last Admin: 07/04/18 09:46 Dose: 15 mg Sacubitril/Valsartan (Entresto 24 Mg-26 Mg Tablet) 1 each PO BID [facility] Last Admin: 07/04/18 18:55 Dose: 1 each - Labs Labs: 07/03/18 19:50 07/03/18 19:50 PT 13.3 SECONDS (9.4-12.5) H 07/03/18 19:50 INR 1.20 07/03/18 19:50 APTT 25.3 Seconds (26.9-38.3) L 07/03/18 19:50 - Constitutional Appears: Non-toxic, No Acute Distress - Head Exam Head Exam: NORMAL INSPECTION, NORMOCEPHALIC - Eye Exam Eye Exam: Normal appearance Pupil Exam: NORMAL ACCOMODATION - ENT Exam ENT Exam: Mucous Membranes Moist, Normal Exam - Respiratory Exam Respiratory Exam: Decreased Breath Sounds, NORMAL BREATHING PATTERN Additional comments: mild expiratory wheezing - Cardiovascular Exam Cardiovascular Exam: +S1, +S2 - GI/Abdominal Exam GI & Abdominal Exam: Soft, Normal Bowel Sounds - Extremities Exam Extremities Exam: Full ROM, Normal Capillary Refill - Neurological Exam Neurological Exam: Alert, Awake, Oriented x3 - Psychiatric Exam Psychiatric exam: Normal Affect, Normal Mood - Skin Skin Exam: Dry, Normal Color, Warm Assessment and Plan - Assessment and Plan (Free Text) Assessment: A 78 year old male who came in to the ER due to progressive shortness of breath. History of COPD, systolic dysfunction congestive heart failure, atrial fibrillation,on Xarelto, coronary artery disease,post stents 2012, hypothyroidism, multiple sclerosis,history of bilateral meniscectomy, right inguinal hernia repair, repair of right elbow fracture, right shoulder arthro plasty. Cardiac cath done on 02/03/18 due to NSTEMI and showed [place] triple vessel disease,distal vessel were diffusely diseased not suitable for coronary bypass.Ischemic cardiomyopathy LVEF 35%, successful POBA of OM 1 done, Could not deploy stent because previous LAD stent was obstructing.Echo done on 02/05/18 nd showed LVEF 35%,mild to moderate MR, mild tricuspid regurgitation RVSP 23mmHg. Chest X ray showed no pulmonary vascular congestion. EKG showed normal sinus rhythm. No evidence of myocardial infarction.Ruled out congestive heart failure. Admitted for acute exacerbation of COPD.Pulmonary on consult. Cardiac status stable. Plan: No distress, some wheezing Nebulizer treatments Heart rate controlled Blood pressure controlled Cardiac status stable Pulmonary on consult On Amiodarone 200 mg MWF, ASA 81 mg daily, Lipitor 80 mg daily, Coreg 3.125 mg BID, Imdur 30 mg daily,Synthroid 100 mcg daily Solumedrol 40 mg BID, Xarelto 15 mg daily, Entresto 1 tab BID Continue current medications Continue current treatment Pulmonary on consult Will follow up Plan and treatment discussed with Dr. Hoffmann
[2018-07-05 08:00] LABS: BASO # 0.01 K/mm3 (0.0-2.0); BASO % 0.1 % (0.0-3.0); EOS % 0.1 % (1.5-5.0); HEMOGLOBIN 9.4 g/dL (14.0-18.0); LYMPH % 16.1 % (22.0-35.0); MEAN CELL VOLUME 86.5 fl (80.0-105.0); MEAN CORPUSCULAR HEMOGLOBIN 26.4 pg (25.0-35.0); MEAN CORPUSCULAR HGB CONC 30.5 g/dl (31.0-37.0); MEAN PLATELET VOLUME 8.6 fl (7.0-11.0); MONO # 0.4 (0.1-0.6); MONO % 2.9 % (1.0-6.0); RBC 3.56 10^6/uL (3.5-6.1); WHITE BLOOD COUNT 12.1 10^3/uL (4.5-11.0)
[2018-07-05 08:20] LABS: ALBUMIN 3.2 g/dL (3.0-4.8); CALCIUM 8.8 mg/dL (8.4-10.5)
[2018-07-05] MEDS: Budesonide 0.5 mg/2 ml Inhal Susp UD IH SCH ×2 (09:49→22:10)
[2018-07-05] MEDS: MethylPREDNISolone 40 mg Vial IVP SCH (10:26)
[2018-07-05] MEDS: SACUBITRIL 24mg/VALSARTAN 26mg tab PO SCH ×2 (10:26→18:10)
--- NOTE | 2018-07-05 11:39 | CP.PCM.PN ---
<Chele Riggs - Last Filed: 07/05/18 11:34> Subjective - Date & Time of Evaluation Date of Evaluation: 07/05/18 Time of Evaluation: 07:40 - Subjective Subjective: Chele Riggs D.O. PGY-3, Internal Medicine Resident, Dr. Osborne's Service, Progress Note 77 year old male with a PMH of COPD, HFrEF 35%, HTN, CAD s/p stent, Afib on xarelto, hypothyroidism, multiple sclerosis who presents for complaints of shortness of breath for the last 2 weeks. Patient was seen and examined at bedside. Patient states that his breathing is much improved. Appears comfortable. No overnight issues. Objective - Vital Signs/Intake and Output Vital Signs (last 24 hours): Temp Pulse Resp BP Pulse Ox 97.8 F 77 20 124/73 96 07/05/18 06:00 07/05/18 10:25 07/05/18 06:00 07/05/18 10:25 07/05/18 06:00 Intake and Output: 07/05/18 07/05/18 06:59 18:59 Intake Total 0 Output Total 1000 Balance -1000 - Medications Medications: Current Medications Albuterol/Ipratropium (Duoneb 3 Mg/0.5 Mg (3 Ml) Ud) 3 ml IH Q2H PRN PRN Reason: Shortness of Breath Last Admin: 07/04/18 06:29 Dose: 3 ml Albuterol/Ipratropium (Duoneb 3 Mg/0.5 Mg (3 Ml) Ud) 3 ml IH [id number] [facility] Last Admin: 07/05/18 09:49 Dose: 3 ml Amiodarone HCl (Cordarone) 200 mg PO MWF [facility] Last Admin: 07/04/18 09:46 Dose: 200 mg Aspirin (Ecotrin) 81 mg PO DAILY [facility] Last Admin: 07/05/18 10:24 Dose: 81 mg Atorvastatin Calcium (Lipitor) 80 mg PO HS [facility] Last Admin: 07/04/18 21:56 Dose: 80 mg Budesonide (Pulmicort Respules) 0.5 mg IH [id number] [facility] Last Admin: 07/05/18 09:49 Dose: 0.5 mg Carvedilol (Coreg) 3.125 mg PO BID [facility] Last Admin: 07/05/18 10:25 Dose: 3.125 mg Isosorbide Mononitrate (Imdur Er) 30 mg PO DAILY [facility] Last Admin: 07/05/18 10:25 Dose: 30 mg Levothyroxine Sodium (Synthroid) 100 mcg PO 0600 [facility] Last Admin: 07/05/18 06:47 Dose: 100 mcg Methylprednisolone (Solu-Medrol) 40 mg IVP DAILY [facility] Last Admin: 07/05/18 10:26 Dose: 40 mg Mirtazapine (Remeron) 15 mg PO HS [facility] Last Admin: 07/04/18 21:54 Dose: 15 mg Oxycodone/Acetaminophen (Percocet 5/325 Mg Tab) 1 tab PO Q6H PRN PRN Reason: Pain, severe (8-10) Stop: 07/07/18 19:26 Last Admin: 07/04/18 21:54 Dose: 1 tab Rivaroxaban (Xarelto) 15 mg PO DAILY [facility]; Protocol Last Admin: 07/05/18 10:25 Dose: 15 mg Sacubitril/Valsartan (Entresto 24 Mg-26 Mg Tablet) 1 each PO BID [facility] Last Admin: 07/05/18 10:26 Dose: 1 each - Labs Labs: 07/05/18 07:00 07/05/18 07:00 PT 13.3 SECONDS (9.4-12.5) H 07/03/18 19:50 INR 1.20 07/03/18 19:50 APTT 25.3 Seconds (26.9-38.3) L 07/03/18 19:50 - Constitutional Appears: Non-toxic, No Acute Distress - Head Exam Head Exam: ATRAUMATIC, NORMOCEPHALIC - Eye Exam Eye Exam: EOMI. absent: Scleral icterus - ENT Exam ENT Exam: Mucous Membranes Moist. absent: Normal Oropharynx - Neck Exam Neck exam: Positive for: Normal Inspection - Respiratory Exam Respiratory Exam: improved air movement, very mild wheezing - Cardiovascular Exam Cardiovascular Exam: +S1, +S2. absent: Gallop, Rubs - GI/Abdominal Exam GI & Abdominal Exam: Normal Bowel Sounds, Soft. absent: Distended, Tenderness - Exam Additional comments: indwelling costa with yellow urine - Extremities Exam Extremities exam: Negative for: calf tenderness, normal capillary refill - Neurological Exam Neurological exam: Alert, Oriented x4 - Psychiatric Exam Psychiatric exam: Normal Affect, Normal Mood - Skin Skin Exam: Dry, Warm Assessment and Plan - Assessment and Plan (Free Text) Assessment: 77 year old male with a PMH of COPD, HFrEF 35%, HTN, CAD s/p stent, Afib on xarelto, hypothyroidism, multiple sclerosis who presents for complaints of shortness of breath for the last 2 weeks. Plan: 1. COPD exacerbation 2. CAD 3. Heart failure 4. Atrial fibrillation 5. Multiple sclerosis 6. Hypertension 7. Hypothyroidism 8. Anxiety 9. Chronic knee pain Patient's respiratory status appears to be improving. Pulmonology was consulted and the recommendations are appreciated. We will decrease his Solu-Medrol from 40 twice daily to 40 once a day. We will continue with scheduled and as needed breathing treatments although he has not needed any more PRN breathing treatments. Continue with Pulmicort as well. For his CAD will continue his home aspirin and atorvastatin. Cardio is consulted and the recommendations of also been reviewed and appreciated. For his atrial fibrillation patient continues on amiodarone and Xarelto. For his history of heart failure he is currently on Coreg and Imdur as well as Entresto. Blood pressure is controlled at this time. Continue levothyroxine for his hypothyroidism. Continue home mirtazapine for anxiety. Continue oxycodone for knee pain which is currently controlled. We will continue to monitor him closely. Patient was seen and examined his case was discussed at length with attending physician <Ap Osborne S - Last Filed: 07/05/18 16:14> Objective - Vital Signs/Intake and Output Vital Signs (last 24 hours): Temp Pulse Resp BP Pulse Ox 98.4 F 71 20 97/49 L 94 L 07/05/18 14:00 07/05/18 14:00 07/05/18 14:00 07/05/18 14:00 07/05/18 14:00 Intake and Output: 07/05/18 07/05/18 06:59 18:59 Intake Total 0 600 Output Total 1000 500 Balance -1000 100 - Medications Medications: Current Medications Albuterol/Ipratropium (Duoneb 3 Mg/0.5 Mg (3 Ml) Ud) 3 ml IH Q2H PRN PRN Reason: Shortness of Breath Last Admin: 07/04/18 06:29 Dose: 3 ml Albuterol/Ipratropium (Duoneb 3 Mg/0.5 Mg (3 Ml) Ud) 3 ml IH [id number] [facility] Last Admin: 07/05/18 14:17 Dose: 3 ml Amiodarone HCl (Cordarone) 200 mg PO MWF [facility] Last Admin: 07/04/18 09:46 Dose: 200 mg Aspirin (Ecotrin) 81 mg PO DAILY [facility] Last Admin: 07/05/18 10:24 Dose: 81 mg Atorvastatin Calcium (Lipitor) 80 mg PO HS [facility] Last Admin: 07/04/18 21:56 Dose: 80 mg Budesonide (Pulmicort Respules) 0.5 mg IH [id number] [facility] Last Admin: 07/05/18 09:49 Dose: 0.5 mg Carvedilol (Coreg) 3.125 mg PO BID [facility] Last Admin: 07/05/18 10:25 Dose: 3.125 mg Isosorbide Mononitrate (Imdur Er) 30 mg PO DAILY [facility] Last Admin: 07/05/18 10:25 Dose: 30 mg Levothyroxine Sodium (Synthroid) 100 mcg PO 0600 [facility] Last Admin: 07/05/18 06:47 Dose: 100 mcg Methylprednisolone (Solu-Medrol) 40 mg IVP DAILY [facility] Last Admin: 07/05/18 10:26 Dose: 40 mg Mirtazapine (Remeron) 15 mg PO [facility] Last Admin: 07/04/18 21:54 Dose: 15 mg Oxycodone/Acetaminophen (Percocet 5/325 Mg Tab) 1 tab PO Q6H PRN PRN Reason: Pain, severe (8-10) Stop: 07/07/18 19:26 Last Admin: 07/04/18 21:54 Dose: 1 tab Rivaroxaban (Xarelto) 15 mg PO DAILY [facility]; Protocol Last Admin: 07/05/18 10:25 Dose: 15 mg Sacubitril/Valsartan (Entresto 24 Mg-26 Mg Tablet) 1 each PO BID [facility] Last Admin: 07/05/18 10:26 Dose: 1 each - Labs Labs: 07/05/18 07:00 07/05/18 07:00 PT 13.3 SECONDS (9.4-12.5) H 07/03/18 19:50 INR 1.20 07/03/18 19:50 APTT 25.3 Seconds (26.9-38.3) L 07/03/18 19:50 Assessment and Plan - Assessment and Plan (Free Text) Plan: Pt seen and examined by me. I have reviewed the note of the medical device sales representative and I agree with it. I have discussed the assessment and plan with the resident. I have reviewed the medications and the last labs.
--- NOTE | 2018-07-05 13:16 | PN ---
DATE: 07/05/2018 PULMONARY PROGRESS NOTE SUBJECTIVE: The patient was seen and examined at bedside. He is sitting up in bed. He states he feels better with less shortness of breath. He is receiving inhalation treatment with albuterol and ipratropium with added budesonide. He is also on low-dose intravenous steroids 40 mg every 12 hours. PHYSICAL EXAMINATION: VITAL SIGNS: His temperature is 97.8, pulse 77, respirations 20, pulse oximetry is 96 on room air, blood pressure is 124/73. HEENT: Head is normocephalic and atraumatic. NECK: Supple with no jugular vein distention. CARDIOVASCULAR: S1 and S2. No S3. Regular. PULMONARY: Diminished breath sounds at both lung bases with no rhonchi, rales, or wheezing. GASTROINTESTINAL: Soft and nontender. No organomegaly. EXTREMITIES: No pedal edema. No cyanosis. NEUROLOGIC: No focal deficits. SKIN: No acute skin rashes. LABORATORY DATA: I have reviewed today's lab work. His chemistry is within normal limits except for slight elevation of serum glucose. WBC is borderline elevated at 12.1 and hemoglobin is reduced at 9.4. The rest is within normal range. ASSESSMENT: 1. Acute bronchitis, resolving. 2. Advanced chronic obstructive pulmonary disease, on home oxygen. 3. Multiple sclerosis. 4. Mild anemia. PLAN: The patient continues to improve one day after admission. Intravenous steroids and antibiotics are helping. He is now sitting up in bed, off oxygen with good oxygen saturation. We will continue with administration of DuoNeb inhalations. Steroids can be tapered and switched to oral. Discharge plans per medical attending. Merlin Flaherty MD
--- NOTE | 2018-07-05 19:48 | PN ---
DATE: 07/05/2018 SUBJECTIVE: The patient is seen and examined. I do agree with the note of the veterinary medical officer. I was involved in the plan of care. The patient has an acute COPD exacerbation. The patient is on nebulizer treatments. We will continue to wean the patient from the steroids. He is getting his nebulizer treatments. He is on aspirin for his coronary artery disease, he is on Lipitor for his dyslipidemia. He has CHF secondary to a systolic dysfunction and he is on Coreg, Entresto as well as Imdur. We will continue same dosages. His CHF is stable. He is on Xarelto and amiodarone for his atrial fibrillation. He has multiple sclerosis and this is stable. No new issues. He has chronic knee pain. He is on oxycodone for his pain. The patient is on Synthroid for his hypothyroidism. He has hypertension and his blood pressure is controlled with the Coreg. He is sleeping better according to him. He states he had a good night's sleep. The patient is on a heart-healthy diet. Ap Osborne MD
[2018-07-05] MEDS: Oxycodone/Acetaminophen 5/325 mg Tab PO PRN (20:04)
[2018-07-06] MEDS ORDERED: guaiFENesin-Codeine 100-10mg/5ml Syrup (5 ml) UD PO ONE (02:09)
[2018-07-06] MEDS: Albuterol-Ipratrop 3 mg / 0.5 (3 ml) UD IH SCH ×5 (02:35→20:17)
[2018-07-06] MEDS: Levothyroxine 100 MCG TAB PO SCH (05:50)
--- NOTE | 2018-07-06 07:23 | CP.PCM.PN ---
Subjective - Date & Time of Evaluation Date of Evaluation: 07/06/18 Time of Evaluation: 07:20 - Subjective Subjective: Lying in bed, Awake, no distress Reason for consultation and follow up: Cardiac evaluation of shortness of breath, admitted for exacerbation of COPD, history of coronary artery disease, congestive heart failure, atrial fibrillation Seen and examined by me and Dr. Hoffmann Objective - Vital Signs/Intake and Output Vital Signs (last 24 hours): Temp Pulse Resp BP Pulse Ox 97.6 F 69 20 102/57 L 95 07/05/18 22:00 07/05/18 22:00 07/05/18 22:00 07/05/18 22:00 07/05/18 22:00 Intake and Output: 07/06/18 07/06/18 06:59 18:59 Intake Total 600 Output Total 900 Balance -300 - Medications Medications: Current Medications Albuterol/Ipratropium (Duoneb 3 Mg/0.5 Mg (3 Ml) Ud) 3 ml IH Q2H PRN PRN Reason: Shortness of Breath Last Admin: 07/04/18 06:29 Dose: 3 ml Albuterol/Ipratropium (Duoneb 3 Mg/0.5 Mg (3 Ml) Ud) 3 ml IH [id number] [facility] Last Admin: 07/06/18 02:35 Dose: 3 ml Amiodarone HCl (Cordarone) 200 mg PO MWF [facility] Last Admin: 07/04/18 09:46 Dose: 200 mg Aspirin (Ecotrin) 81 mg PO DAILY [facility] Last Admin: 07/05/18 10:24 Dose: 81 mg Atorvastatin Calcium (Lipitor) 80 mg PO HS [facility] Last Admin: 07/05/18 21:50 Dose: 80 mg Budesonide (Pulmicort Respules) 0.5 mg IH [id number] [facility] Last Admin: 07/05/18 22:10 Dose: 0.5 mg Carvedilol (Coreg) 3.125 mg PO BID [facility] Last Admin: 07/05/18 18:11 Dose: 3.125 mg Isosorbide Mononitrate (Imdur Er) 30 mg PO DAILY [facility] Last Admin: 07/05/18 10:25 Dose: 30 mg Levothyroxine Sodium (Synthroid) 100 mcg PO 0600 [facility] Last Admin: 07/06/18 05:50 Dose: 100 mcg Methylprednisolone (Solu-Medrol) 40 mg IVP DAILY [facility] Last Admin: 07/05/18 10:26 Dose: 40 mg Mirtazapine (Remeron) 15 mg PO HS [facility] Last Admin: 07/05/18 21:50 Dose: 15 mg Oxycodone/Acetaminophen (Percocet 5/325 Mg Tab) 1 tab PO Q6H PRN PRN Reason: Pain, severe (8-10) Stop: 07/07/18 19:26 Last Admin: 07/05/18 20:04 Dose: 1 tab Rivaroxaban (Xarelto) 15 mg PO DAILY [facility]; Protocol Last Admin: 07/05/18 10:25 Dose: 15 mg Sacubitril/Valsartan (Entresto 24 Mg-26 Mg Tablet) 1 each PO BID [facility] Last Admin: 07/05/18 18:10 Dose: 1 each - Labs Labs: 07/05/18 07:00 07/05/18 07:00 PT 13.3 SECONDS (9.4-12.5) H 07/03/18 19:50 INR 1.20 07/03/18 19:50 APTT 25.3 Seconds (26.9-38.3) L 07/03/18 19:50 - Constitutional Appears: Non-toxic, No Acute Distress - Head Exam Head Exam: NORMAL INSPECTION, NORMOCEPHALIC - Eye Exam Eye Exam: Normal appearance Pupil Exam: NORMAL ACCOMODATION - ENT Exam ENT Exam: Mucous Membranes Moist, Normal Exam - Neck Exam Neck Exam: Full ROM, Normal Inspection - Respiratory Exam Respiratory Exam: Decreased Breath Sounds, Clear to Ausculation Bilateral, NORMAL BREATHING PATTERN - Cardiovascular Exam Cardiovascular Exam: +S1, +S2 - GI/Abdominal Exam GI & Abdominal Exam: Soft, Normal Bowel Sounds - Exam Additional comments: costa catheter - Extremities Exam Extremities Exam: Full ROM, Normal Capillary Refill - Neurological Exam Neurological Exam: Alert, Awake, Oriented x3 - Psychiatric Exam Psychiatric exam: Normal Affect, Normal Mood - Skin Skin Exam: Dry, Normal Color, Warm Assessment and Plan - Assessment and Plan (Free Text) Assessment: A 78 year old male who came in to the ER due to progressive shortness of breath. History of COPD, systolic dysfunction congestive heart failure, atrial fibrillation,on Xarelto, coronary artery disease,post stents 2012, hypo thyroidism, multiple sclerosis,history of bilateral meniscectomy, right inguinal hernia repair, repair of right elbow fracture, right shoulder arthroplasty. Cardiac cath done on 02/03/18 due to NSTEMI and showed [place] triple vessel disease,distal vessel were diffusely diseased not suitable for coronary bypass.Ischemic cardiomyopathy LVEF 35%, successful POBA of OM 1 done, Could not deploy stent because previous LAD stent was obstructing.Echo done on 02/05/18 nd showed LVEF 35%,mild to moderate MR, mild tricuspid regurgitation RVSP 23mmHg. Chest X ray showed no pulmonary vascular congestion. EKG showed normal sinus rhythm. No evidence of myocardial infarction. Ruled out congestive heart f ailure. Admitted for acute exacerbation of COPD. Pulmonary on consult. Cardiac status stable. Clinically improved. No further cardiac work up at this time. Discharge planning. Plan: Clinically improved No distress Heart rate controlled Blood pressure controlled Cardiac status stable Pulmonary on consult On Amiodarone 200 mg MWF, ASA 81 mg daily, Lipitor 80 mg daily, Coreg 3.125 mg BID, Imdur 30 mg daily,Synthroid 100 mcg daily Solumedrol 40 mg BID, Xarelto 15 mg daily, Entresto 1 tab BID Continue current medications Continue current treatment Pulmonary on consult No further cardiac work up Discharge planning Will follow up Plan and treatment discussed with Dr. Hoffmann
[2018-07-06] MEDS: Budesonide 0.5 mg/2 ml Inhal Susp UD IH SCH (07:53)
--- NOTE | 2018-07-06 08:07 | CP.PCM.PN ---
<Chele Riggs - Last Filed: 07/06/18 10:47> Subjective - Date & Time of Evaluation Date of Evaluation: 07/06/18 Time of Evaluation: 05:17 - Subjective Subjective: Chele Riggs D.O. PGY-3, Internal Medicine Resident, Dr. Osborne's Service, Progress Note 77 year old male with a PMH of COPD, HFrEF 35%, HTN, CAD s/p stent, Afib on xarelto, hypothyroidism, multiple sclerosis who presents for complaints of shortness of breath for the last 2 weeks. Patient was seen and examined at bedside. States had a lot of coughing and SOB overnight. Feels like he has thick phlegm to get out. Didn't sleep well. Objective - Vital Signs/Intake and Output Vital Signs (last 24 hours): Temp Pulse Resp BP Pulse Ox 97.6 F 69 20 102/57 L 95 07/05/18 22:00 07/05/18 22:00 07/05/18 22:00 07/05/18 22:00 07/05/18 22:00 Intake and Output: 07/06/18 07/06/18 06:59 18:59 Intake Total 600 Output Total 900 Balance -300 - Medications Medications: Current Medications Albuterol/Ipratropium (Duoneb 3 Mg/0.5 Mg (3 Ml) Ud) 3 ml IH Q2H PRN PRN Reason: Shortness of Breath Last Admin: 07/04/18 06:29 Dose: 3 ml Albuterol/Ipratropium (Duoneb 3 Mg/0.5 Mg (3 Ml) Ud) 3 ml IH [id number] [facility] Last Admin: 07/06/18 07:53 Dose: 3 ml Amiodarone HCl (Cordarone) 200 mg PO MWF [facility] Last Admin: 07/04/18 09:46 Dose: 200 mg Aspirin (Ecotrin) 81 mg PO DAILY [facility] Last Admin: 07/05/18 10:24 Dose: 81 mg Atorvastatin Calcium (Lipitor) 80 mg PO HS [facility] Last Admin: 07/05/18 21:50 Dose: 80 mg Budesonide (Pulmicort Respules) 0.5 mg IH [id number] [facility] Last Admin: 07/05/18 22:10 Dose: 0.5 mg Carvedilol (Coreg) 3.125 mg PO BID [facility] Last Admin: 07/05/18 18:11 Dose: 3.125 mg Isosorbide Mononitrate (Imdur Er) 30 mg PO DAILY [facility] Last Admin: 07/05/18 10:25 Dose: 30 mg Levothyroxine Sodium (Synthroid) 100 mcg PO 0600 [facility] Last Admin: 07/06/18 05:50 Dose: 100 mcg Methylprednisolone (Solu-Medrol) 40 mg IVP DAILY [facility] Last Admin: 07/05/18 10:26 Dose: 40 mg Mirtazapine (Remeron) 15 mg PO HS [facility] Last Admin: 07/05/18 21:50 Dose: 15 mg Oxycodone/Acetaminophen (Percocet 5/325 Mg Tab) 1 tab PO Q6H PRN PRN Reason: Pain, severe (8-10) Stop: 07/07/18 19:26 Last Admin: 07/05/18 20:04 Dose: 1 tab Rivaroxaban (Xarelto) 15 mg PO DAILY [facility]; Protocol Last Admin: 07/05/18 10:25 Dose: 15 mg Sacubitril/Valsartan (Entresto 24 Mg-26 Mg Tablet) 1 each PO BID [facility] Last Admin: 07/05/18 18:10 Dose: 1 each - Labs Labs: 07/05/18 07:00 07/05/18 07:00 PT 13.3 SECONDS (9.4-12.5) H 07/03/18 19:50 INR 1.20 07/03/18 19:50 APTT 25.3 Seconds (26.9-38.3) L 07/03/18 19:50 - Constitutional Appears: Non-toxic, No Acute Distress - Head Exam Head Exam: ATRAUMATIC, NORMOCEPHALIC - Eye Exam Eye Exam: EOMI. absent: Scleral icterus - ENT Exam ENT Exam: Mucous Membranes Moist. absent: Normal Oropharynx - Neck Exam Neck exam: Positive for: Normal Inspection - Respiratory Exam Respiratory Exam: wheezing, no rhonchi or rales - Cardiovascular Exam Cardiovascular Exam: +S1, +S2. absent: Gallop, Rubs - GI/Abdominal Exam GI & Abdominal Exam: Normal Bowel Sounds, Soft. absent: Distended, Tenderness - Exam Additional comments: indwelling costa with clear yellow urine - Extremities Exam Extremities exam: Negative for: calf tenderness, normal capillary refill - Neurological Exam Neurological exam: Alert, Oriented x4 - Psychiatric Exam Psychiatric exam: Normal Affect, Normal Mood - Skin Skin Exam: Dry, Warm Assessment and Plan - Assessment and Plan (Free Text) Assessment: 77 year old male with a PMH of COPD, HFrEF 35%, HTN, CAD s/p stent, Afib on xarelto, hypothyroidism, multiple sclerosis, bipolar disorder, who presents for complaints of shortness of breath for the last 2 weeks. Plan: 1. COPD exacerbation 2. CAD 3. Heart failure 4. Atrial fibrillation 5. Multiple sclerosis 6. Hypertension 7. Hypothyroidism 8. Anxiety 9. Chronic knee pain Pulmonary consulted, recommendations appreciated. We will continue with Solu- Medrol 40 daily. We will also continue with scheduled and as needed nebulizers. We will add promethazine to help with his cough as well as guaifenesin to help loosen up his secretions. Physical therapy has been consulted. Continues on home aspirin and atorvastatin for his CAD. Cardiology is following the patient's status, the recommendations have also been reviewed and appreciated. For his atrial fibrillation he continues on amiodarone and Xarelto. He also continues on carvedilol and Endor and Entresto for his heart failure history. He is currently on his home dose of levothyroxine for hypothyroidism. For his anxiety and history of bipolar disorder he is currently on mirtazapine. We will add alprazolam 0.25mg 3 times daily as needed for anxiety to help during this acute period. Continue with oxycodone for his knee pain. Continue to monitor clinical status. Patient was seen and examined his case was discussed at length with attending physician <Ap Osborne S - Last Filed: 07/06/18 14:34> Objective - Vital Signs/Intake and Output Vital Signs (last 24 hours): Temp Pulse Resp BP Pulse Ox 97.4 F L 65 18 112/58 L 93 L 07/06/18 06:00 07/06/18 09:30 07/06/18 06:00 07/06/18 09:30 07/06/18 06:00 Intake and Output: 07/06/18 07/06/18 06:59 18:59 Intake Total 600 Output Total 900 Balance -300 - Medications Medications: Current Medications Albuterol/Ipratropium (Duoneb 3 Mg/0.5 Mg (3 Ml) Ud) 3 ml IH Q2H PRN PRN Reason: Shortness of Breath Last Admin: 07/04/18 06:29 Dose: 3 ml Albuterol/Ipratropium (Duoneb 3 Mg/0.5 Mg (3 Ml) Ud) 3 ml IH [id number] [facility] Last Admin: 07/06/18 14:17 Dose: 3 ml Alprazolam (Xanax) 0.25 mg PO TID [facility]; Protocol Stop: 07/13/18 10:01 Amiodarone HCl (Cordarone) 200 mg PO MWF [facility] Last Admin: 07/04/18 09:46 Dose: 200 mg Aspirin (Ecotrin) 81 mg PO DAILY [facility] Last Admin: 07/06/18 09:29 Dose: 81 mg Atorvastatin Calcium (Lipitor) 80 mg PO HS [facility] Last Admin: 07/05/18 21:50 Dose: 80 mg Budesonide (Pulmicort Respules) 0.5 mg IH [id number] [facility] Last Admin: 07/06/18 07:53 Dose: 0.5 mg Carvedilol (Coreg) 3.125 mg PO BID [facility] Last Admin: 07/06/18 09:30 Dose: 3.125 mg Guaifenesin (Mucinex La) 600 mg PO BID [facility] Last Admin: 07/06/18 09:29 Dose: 600 mg Isosorbide Mononitrate (Imdur Er) 30 mg PO DAILY [facility] Last Admin: 07/06/18 09:29 Dose: 30 mg Levothyroxine Sodium (Synthroid) 100 mcg PO 0600 [facility] Last Admin: 07/06/18 05:50 Dose: 100 mcg Methylprednisolone (Solu-Medrol) 40 mg IVP DAILY [facility] Last Admin: 07/06/18 09:28 Dose: 40 mg Mirtazapine (Remeron) 15 mg PO HS [facility] Last Admin: 07/05/18 21:50 Dose: 15 mg Oxycodone/Acetaminophen (Percocet 5/325 Mg Tab) 1 tab PO Q6H PRN PRN Reason: Pain, severe (8-10) Stop: 07/07/18 19:26 Last Admin: 07/05/18 20:04 Dose: 1 tab Promethazine HCl (Phenergan Syrup) 12.5 mg PO Q4H PRN PRN Reason: Cough Last Admin: 07/06/18 09:29 Dose: 12.5 mg Rivaroxaban (Xarelto) 15 mg PO DAILY [facility]; Protocol Last Admin: 07/06/18 09:29 Dose: 15 mg Sacubitril/Valsartan (Entresto 24 Mg-26 Mg Tablet) 1 each PO BID [facility] Last Admin: 07/06/18 09:28 Dose: 1 each - Labs Labs: 07/05/18 07:00 07/05/18 07:00 PT 13.3 SECONDS (9.4-12.5) H 07/03/18 19:50 INR 1.20 07/03/18 19:50 APTT 25.3 Seconds (26.9-38.3) L 07/03/18 19:50 Assessment and Plan - Assessment and Plan (Free Text) Plan: Pt seen and examined by me. I have reviewed the note of the emergency medical technician/driver and I agree with it. I have discussed the assessment and plan with the resident. I have reviewed the medications and the last labs.
[2018-07-06] MEDS: MethylPREDNISolone 40 mg Vial IVP SCH (09:28)
[2018-07-06] MEDS: SACUBITRIL 24mg/VALSARTAN 26mg tab PO SCH ×2 (09:28→18:15)
[2018-07-06] MEDS: guaiFENesin 600 mg ER Tab PO SCH ×2 (09:29→18:15)
[2018-07-06] MEDS: Promethazine 6.25 MG/5 ML CUP PO PRN ×3 (09:29→22:05)
--- NOTE | 2018-07-06 19:25 | PN ---
DATE: 07/06/2018 HOSPITAL COURSE: The patient was seen and examined. I do agree with the note of the medical support assistant. I was involved in plan of care. The patient is continuing to improve from his acute COPD exacerbation. He is on Solu-Medrol as well as nebulizer treatment. The patient is getting physical therapy. He is on aspirin and atorvastatin for his coronary artery disease. The patient is on levothyroxine for his hypothyroidism. He is on Xanax for his anxiety. He does have a history of bipolar disorder. He has been on amiodarone and Xarelto for his atrial fibrillation. The patient has chronic knee pain; his pain is currently controlled. He is going to be seen by physical therapy. He is interested in rehab if he qualifies. We will need to wait for case management and psych social worker to evaluate the patient. Because of the long weekend, will not able to evaluate. Ap Osborne MD
[2018-07-07] MEDS: Albuterol-Ipratrop 3 mg / 0.5 (3 ml) UD IH SCH ×4 (02:30→20:16)
[2018-07-07] MEDS: Levothyroxine 100 MCG TAB PO SCH (06:38)
[2018-07-07 07:31] LABS: BASO # 0.04 K/mm3 (0.0-2.0); BASO % 0.3 % (0.0-3.0); EOS % 0.1 % (1.5-5.0); HEMOGLOBIN 10.3 g/dL (14.0-18.0); LYMPH % 25.1 % (22.0-35.0); MEAN CORPUSCULAR HEMOGLOBIN 26.3 pg (25.0-35.0); MEAN CORPUSCULAR HGB CONC 29.9 g/dl (31.0-37.0); MEAN PLATELET VOLUME 8.5 fl (7.0-11.0); MONO # 0.9 (0.1-0.6); MONO % 5.6 % (1.0-6.0); RBC 3.92 10^6/uL (3.5-6.1); RED CELL DISTRIBUTION WIDTH 18.1 % (11.5-14.5)
--- NOTE | 2018-07-07 07:35 | CP.PCM.PN ---
Subjective - Date & Time of Evaluation Date of Evaluation: 07/07/18 Time of Evaluation: 06:40 - Subjective Subjective: Awake, Lying in bed, no distress,feels okay Reason for consultation and follow up: Cardiac evaluation of shortness of breath, admitted for exacerbation of COPD, history of coronary artery disease, congestive heart failure, atrial fibrillation Seen and examined by me and Dr. Hoffmann Objective - Vital Signs/Intake and Output Vital Signs (last 24 hours): Temp Pulse Resp BP Pulse Ox 98.1 F 55 L 18 121/55 L 91 L 07/07/18 06:00 07/07/18 06:00 07/07/18 06:00 07/07/18 06:00 07/07/18 06:00 Intake and Output: 07/07/18 07/07/18 06:59 18:59 Intake Total 800 Output Total 1100 Balance -300 - Medications Medications: Current Medications Albuterol/Ipratropium (Duoneb 3 Mg/0.5 Mg (3 Ml) Ud) 3 ml IH Q2H PRN PRN Reason: Shortness of Breath Last Admin: 07/04/18 06:29 Dose: 3 ml Albuterol/Ipratropium (Duoneb 3 Mg/0.5 Mg (3 Ml) Ud) 3 ml IH [id number] [facility] Last Admin: 07/07/18 02:30 Dose: Not Given Alprazolam (Xanax) 0.25 mg PO Q6H PRN; Protocol PRN Reason: Anxiety Stop: 07/13/18 18:57 Amiodarone HCl (Cordarone) 200 mg PO F [facility] Last Admin: 07/04/18 09:46 Dose: 200 mg Aspirin (Ecotrin) 81 mg PO DAILY [facility] Last Admin: 07/06/18 09:29 Dose: 81 mg Atorvastatin Calcium (Lipitor) 80 mg PO HS [facility] Last Admin: 07/06/18 21:35 Dose: 80 mg Budesonide (Pulmicort Respules) 0.5 mg IH [id number] [facility] Last Admin: 07/06/18 07:53 Dose: 0.5 mg Carvedilol (Coreg) 3.125 mg PO BID [facility] Last Admin: 07/06/18 18:16 Dose: 3.125 mg Guaifenesin (Mucinex La) 600 mg PO BID [facility] Last Admin: 07/06/18 18:15 Dose: 600 mg Isosorbide Mononitrate (Imdur Er) 30 mg PO DAILY [facility] Last Admin: 07/06/18 09:29 Dose: 30 mg Levothyroxine Sodium (Synthroid) 100 mcg PO 0600 [facility] Last Admin: 07/07/18 06:38 Dose: 100 mcg Methylprednisolone (Solu-Medrol) 40 mg IVP DAILY [facility] Last Admin: 07/06/18 09:28 Dose: 40 mg Mirtazapine (Remeron) 15 mg PO HS [facility] Last Admin: 07/06/18 21:34 Dose: 15 mg Oxycodone/Acetaminophen (Percocet 5/325 Mg Tab) 1 tab PO Q6H PRN PRN Reason: Pain, severe (8-10) Stop: 07/07/18 19:26 Last Admin: 07/05/18 20:04 Dose: 1 tab Promethazine HCl (Phenergan Syrup) 12.5 mg PO Q4H PRN PRN Reason: Cough Last Admin: 07/06/18 22:05 Dose: 12.5 mg Rivaroxaban (Xarelto) 15 mg PO DAILY [facility]; Protocol Last Admin: 07/06/18 09:29 Dose: 15 mg Sacubitril/Valsartan (Entresto 24 Mg-26 Mg Tablet) 1 each PO BID [facility] Last Admin: 07/06/18 18:15 Dose: 1 each - Labs Labs: 07/07/18 07:00 07/05/18 07:00 PT 13.3 SECONDS (9.4-12.5) H 07/03/18 19:50 INR 1.20 07/03/18 19:50 APTT 25.3 Seconds (26.9-38.3) L 07/03/18 19:50 - Constitutional Appears: Non-toxic, No Acute Distress - Head Exam Head Exam: NORMAL INSPECTION, NORMOCEPHALIC - Eye Exam Eye Exam: Normal appearance Pupil Exam: NORMAL ACCOMODATION - ENT Exam ENT Exam: Mucous Membranes Moist, Normal Exam - Neck Exam Neck Exam: Full ROM, Normal Inspection - Respiratory Exam Respiratory Exam: Decreased Breath Sounds, Clear to Ausculation Bilateral, NORMAL BREATHING PATTERN - Cardiovascular Exam Cardiovascular Exam: +S1, +S2 - GI/Abdominal Exam GI & Abdominal Exam: Soft, Normal Bowel Sounds - Exam Additional comments: costa catheter - Extremities Exam Extremities Exam: Full ROM, Normal Capillary Refill - Neurological Exam Neurological Exam: Alert, Awake, Oriented x3 - Psychiatric Exam Psychiatric exam: Normal Affect, Normal Mood - Skin Skin Exam: Dry, Normal Color, Warm Assessment and Plan - Assessment and Plan (Free Text) Assessment: A 78 year old male who came in to the ER due to progressive shortness of breath. History of COPD, systolic dysfunction congestive heart failure, atrial fibrillation,on Xarelto, coronary artery disease,post stents 2012, hypothyroidism, multiple sclerosis,history of bilateral meniscectomy, right inguinal hernia repair, repair of right elbow fracture, right shoulder arthroplasty. Cardiac cath done on 02/03/18 due to NSTEMI and showed [place] triple vessel disease,distal vessel were diffusely diseased not suitable for coronary bypass.Ischemic cardiomyopathy LVEF 35%, successful POBA of OM 1 done, Could not deploy stent because previous LAD stent was obstructing.Echo done on 02/05/18 nd showed LVEF 35%,mild to moderate MR, mild tricuspid regurgitation RVSP 23mmHg. Chest X ray showed no pulmonary vascular congestion. EKG showed normal sinus rhythm. No evidence of myocardial infarction. Ruled out congestive heart failure. Admitted for acute exacerbation of COPD. Pulmonary on consult. Cardiac status stable. Clinically improved. No further cardiac work up at this time. Discharge planning. Patient interested in rehab placement. Awaiting social service/case management evaluation for placement. Plan: No distress, unable to sleep last night Ativan dose given Heart rate controlled Blood pressure controlled Cardiac status stable On Amiodarone 200 mg MWF, ASA 81 mg daily, Lipitor 80 mg daily, Coreg 3.125 mg BID, Imdur 30 mg daily,Synthroid 100 mcg daily Solumedrol 40 mg BID, Xarelto 15 mg daily, Entresto 1 tab BID Continue current medications Continue current treatment Pulmonary on consult No further cardiac work up at this time Discharge planning Awaiting social service and case management to evaluate for rehab placement Will follow up Plan and treatment discussed with Dr. Hoffmann
[2018-07-07 08:00] LABS: ALB/GLOB RATIO 1.1 (1.1-1.8); ALBUMIN 3.3 g/dL (3.0-4.8); CALCIUM 9.2 mg/dL (8.4-10.5)
[2018-07-07] MEDS: SACUBITRIL 24mg/VALSARTAN 26mg tab PO SCH ×2 (11:15→17:40)
[2018-07-07] MEDS: guaiFENesin 600 mg ER Tab PO SCH ×2 (11:15→17:42)
[2018-07-07] MEDS: Promethazine 6.25 MG/5 ML CUP PO PRN ×3 (11:16→21:16)
[2018-07-07] MEDS: MethylPREDNISolone 40 mg Vial IVP SCH (11:16)
--- NOTE | 2018-07-07 13:49 | CP.PCM.PN ---
<Chele Riggs - Last Filed: 07/07/18 13:42> Subjective - Date & Time of Evaluation Date of Evaluation: 07/07/18 Time of Evaluation: 08:20 - Subjective Subjective: Chele Riggs D.O. PGY-3, Internal Medicine Resident, Dr. Osborne's Service, Progress Note 77 year old male with a PMH of COPD, HFrEF 35%, HTN, CAD s/p stent, Afib on xarelto, hypothyroidism, multiple sclerosis who presents for complaints of shortness of breath for the last 2 weeks. Patient was seen and examined at bedside. Able to get a better nights rest last night. Breathing improving. Wants to get more therapy, possibly go to facility. Objective - Vital Signs/Intake and Output Vital Signs (last 24 hours): Temp Pulse Resp BP Pulse Ox 98.1 F 71 18 122/63 92 L 07/07/18 06:00 07/07/18 11:15 07/07/18 06:00 07/07/18 11:15 07/07/18 11:02 Intake and Output: 07/07/18 07/07/18 06:59 18:59 Intake Total 800 Output Total 1100 Balance -300 - Medications Medications: Current Medications Albuterol/Ipratropium (Duoneb 3 Mg/0.5 Mg (3 Ml) Ud) 3 ml IH Q2H PRN PRN Reason: Shortness of Breath Last Admin: 07/04/18 06:29 Dose: 3 ml Albuterol/Ipratropium (Duoneb 3 Mg/0.5 Mg (3 Ml) Ud) 3 ml IH [id number] [facility] Last Admin: 07/07/18 13:41 Dose: 3 ml Alprazolam (Xanax) 0.25 mg PO Q6H PRN; Protocol PRN Reason: Anxiety Stop: 07/13/18 18:57 Last Admin: 07/07/18 11:24 Dose: 0.25 mg Amiodarone HCl (Cordarone) 200 mg PO MWF [facility] Last Admin: 07/07/18 11:15 Dose: 200 mg Aspirin (Ecotrin) 81 mg PO DAILY [facility] Last Admin: 07/07/18 11:15 Dose: 81 mg Atorvastatin Calcium (Lipitor) 80 mg PO HS [facility] Last Admin: 07/06/18 21:35 Dose: 80 mg Budesonide (Pulmicort Respules) 0.5 mg IH [id number] [facility] Last Admin: 07/06/18 07:53 Dose: 0.5 mg Carvedilol (Coreg) 3.125 mg PO BID [facility] Last Admin: 07/07/18 11:15 Dose: 3.125 mg Guaifenesin (Mucinex La) 600 mg PO BID [facility] Last Admin: 07/07/18 11:15 Dose: 600 mg Isosorbide Mononitrate (Imdur Er) 30 mg PO DAILY [facility] Last Admin: 07/07/18 11:14 Dose: 30 mg Levothyroxine Sodium (Synthroid) 100 mcg PO 0600 [facility] Last Admin: 07/07/18 06:38 Dose: 100 mcg Methylprednisolone (Solu-Medrol) 40 mg IVP DAILY [facility] Last Admin: 07/07/18 11:16 Dose: 40 mg Mirtazapine (Remeron) 15 mg PO HS [facility] Last Admin: 07/06/18 21:34 Dose: 15 mg Oxycodone/Acetaminophen (Percocet 5/325 Mg Tab) 1 tab PO Q6H PRN PRN Reason: Pain, severe (8-10) Stop: 07/07/18 19:26 Last Admin: 07/05/18 20:04 Dose: 1 tab Promethazine HCl (Phenergan Syrup) 12.5 mg PO Q4H PRN PRN Reason: Cough Last Admin: 07/07/18 11:16 Dose: 12.5 mg Rivaroxaban (Xarelto) 15 mg PO DAILY [facility]; Protocol Last Admin: 07/07/18 11:15 Dose: 15 mg Sacubitril/Valsartan (Entresto 24 Mg-26 Mg Tablet) 1 each PO BID [facility] Last Admin: 07/07/18 11:15 Dose: 1 each - Labs Labs: 07/07/18 07:00 07/07/18 07:00 PT 13.3 SECONDS (9.4-12.5) H 07/03/18 19:50 INR 1.20 07/03/18 19:50 APTT 25.3 Seconds (26.9-38.3) L 07/03/18 19:50 - Constitutional Appears: Non-toxic, No Acute Distress - Head Exam Head Exam: ATRAUMATIC, NORMOCEPHALIC - Eye Exam Eye Exam: EOMI. absent: Scleral icterus - ENT Exam ENT Exam: Mucous Membranes Moist. absent: Normal Oropharynx - Neck Exam Neck exam: Positive for: Normal Inspection - Respiratory Exam Respiratory Exam: mild wheezing, improved air movement, no rhonchi or rales - Cardiovascular Exam Cardiovascular Exam: +S1, +S2. absent: Gallop, Rubs - GI/Abdominal Exam GI & Abdominal Exam: Normal Bowel Sounds, Soft. absent: Distended, Tenderness - Exam Additional comments: indwelling costa with clear yellow urine - Extremities Exam Extremities exam: Negative for: calf tenderness, normal capillary refill - Neurological Exam Neurological exam: Alert, Oriented x4 - Psychiatric Exam Psychiatric exam: Normal Affect, Normal Mood - Skin Skin Exam: Dry, Warm Assessment and Plan - Assessment and Plan (Free Text) Assessment: 77 year old male with a PMH of COPD, HFrEF 35%, HTN, CAD s/p stent, Afib on xarelto, hypothyroidism, multiple sclerosis, bipolar disorder, who presents for complaints of shortness of breath for the last 2 weeks. Plan: 1. COPD exacerbation 2. CAD 3. HFrEF 4. Atrial fibrillation 5. Multiple sclerosis 6. Hypertension 7. Hypothyroidism 8. Anxiety 9. Chronic knee pain Respiratory status appears to be improving. Pulmonary following. Patient continues on Solu-Medrol 40 daily, scheduled and as needed breathing treatments, as well as Pulmicort. Has not required any more PRN breathing treatments. His cough has improved since he started promethazine syrup and guaifenesin so we will continue these. For his CAD cardiology following and the recommendations have been reviewed and appreciated. Patient continues on amiodarone and Xarelto for his atrial fibrillation. For his CAD continues on aspirin and atorvastatin. For his heart failure he is on carvedilol, Imdur and Entresto. For his hypothyroidism he continues on his home levothyroxine. For his anxiety and bipolar disorder he continues on mirtazapine and as needed alprazolam. For his knee pain he is currently well controlled on oxycodone. Will need to discuss with case management and social work after he is evaluated by physical therapy. To be evaluated by physical therapy today. We will follow-up recommendations. Patient was seen and examined his case was discussed at length with attending physician. <Ap Osborne S - Last Filed: 07/07/18 16:12> Objective - Vital Signs/Intake and Output Vital Signs (last 24 hours): Temp Pulse Resp BP Pulse Ox 98.2 F 73 20 111/64 92 L 07/07/18 14:00 07/07/18 14:00 07/07/18 14:00 07/07/18 14:00 07/07/18 11:02 Intake and Output: 07/07/18 07/07/18 06:59 18:59 Intake Total 800 480 Output Total 1100 600 Balance -300 -120 - Medications Medications: Current Medications Albuterol/Ipratropium (Duoneb 3 Mg/0.5 Mg (3 Ml) Ud) 3 ml IH Q2H PRN PRN Reason: Shortness of Breath Last Admin: 07/04/18 06:29 Dose: 3 ml Albuterol/Ipratropium (Duoneb 3 Mg/0.5 Mg (3 Ml) Ud) 3 ml IH [id number] [facility] Last Admin: 07/07/18 13:41 Dose: 3 ml Alprazolam (Xanax) 0.25 mg PO Q6H PRN; Protocol PRN Reason: Anxiety Stop: 07/13/18 18:57 Last Admin: 07/07/18 11:24 Dose: 0.25 mg Amiodarone HCl (Cordarone) 200 mg PO MWF [facility] Last Admin: 07/07/18 11:15 Dose: 200 mg Aspirin (Ecotrin) 81 mg PO DAILY [facility] Last Admin: 07/07/18 11:15 Dose: 81 mg Atorvastatin Calcium (Lipitor) 80 mg PO HS [facility] Last Admin: 07/06/18 21:35 Dose: 80 mg Budesonide (Pulmicort Respules) 0.5 mg IH [id number] [facility] Last Admin: 07/06/18 07:53 Dose: 0.5 mg Carvedilol (Coreg) 3.125 mg PO BID [facility] Last Admin: 07/07/18 11:15 Dose: 3.125 mg Guaifenesin (Mucinex La) 600 mg PO BID [facility] Last Admin: 07/07/18 11:15 Dose: 600 mg Isosorbide Mononitrate (Imdur Er) 30 mg PO DAILY [facility] Last Admin: 07/07/18 11:14 Dose: 30 mg Levothyroxine Sodium (Synthroid) 100 mcg PO 0600 [facility] Last Admin: 07/07/18 06:38 Dose: 100 mcg Methylprednisolone (Solu-Medrol) 40 mg IVP DAILY [facility] Last Admin: 07/07/18 11:16 Dose: 40 mg Mirtazapine (Remeron) 15 mg PO HS [facility] Last Admin: 07/06/18 21:34 Dose: 15 mg Oxycodone/Acetaminophen (Percocet 5/325 Mg Tab) 1 tab PO Q6H PRN PRN Reason: Pain, severe (8-10) Stop: 07/07/18 19:26 Last Admin: 07/05/18 20:04 Dose: 1 tab Promethazine HCl (Phenergan Syrup) 12.5 mg PO Q4H PRN PRN Reason: Cough Last Admin: 07/07/18 11:16 Dose: 12.5 mg Rivaroxaban (Xarelto) 15 mg PO DAILY [facility]; Protocol Last Admin: 07/07/18 11:15 Dose: 15 mg Sacubitril/Valsartan (Entresto 24 Mg-26 Mg Tablet) 1 each PO BID [facility] Last Admin: 07/07/18 11:15 Dose: 1 each - Labs Labs: 07/07/18 07:00 07/07/18 07:00 PT 13.3 SECONDS (9.4-12.5) H 07/03/18 19:50 INR 1.20 07/03/18 19:50 APTT 25.3 Seconds (26.9-38.3) L 07/03/18 19:50 Assessment and Plan - Assessment and Plan (Free Text) Plan: Pt seen and examined by me. I have reviewed the note of the medical device engineer and I agree with it. I have discussed the assessment and plan with the resident. I have reviewed the medications and the last labs.
[2018-07-07] MEDS: Budesonide 0.5 mg/2 ml Inhal Susp UD IH SCH (20:16)
--- NOTE | 2018-07-07 20:20 | PN ---
DATE: 07/07/2018 SUBJECTIVE: The patient was seen and examined. I do agree with the note of the medical staff services manager. I was involved in the plan of care. The patient has an acute COPD exacerbation, is improving. He had coronary artery disease and he is on aspirin. He is on Lipitor for dyslipidemia. He has bipolar disorder, he is currently stable. He is on for his atrial fibrillation. He is on Synthroid for hypothyroidism. He is on mirtazapine and alprazolam for his anxiety. The patient is awaiting to get physical therapy. We will see if he will qualify for the transitional care unit, otherwise he may need to go to subacute rehab. He is clinically improving. Ap Osborne MD
[2018-07-07] MEDS: Albuterol-Ipratrop 3 mg / 0.5 (3 ml) UD IH PRN (22:13)
[2018-07-07] MEDS ORDERED: Oxycodone/Acetaminophen 5/325 mg Tab PO ONE (23:06)
[2018-07-08] MEDS: Albuterol-Ipratrop 3 mg / 0.5 (3 ml) UD IH SCH ×3 (01:14→13:06)
[2018-07-08] MEDS: Levothyroxine 100 MCG TAB PO SCH (06:25)
[2018-07-08] MEDS: Budesonide 0.5 mg/2 ml Inhal Susp UD IH SCH (07:33)
[2018-07-08] MEDS: MethylPREDNISolone 40 mg Vial IVP SCH (09:55)
[2018-07-08] MEDS: SACUBITRIL 24mg/VALSARTAN 26mg tab PO SCH ×2 (09:56→18:18)
[2018-07-08] MEDS: guaiFENesin 600 mg ER Tab PO SCH ×2 (09:56→18:15)
[2018-07-08] MEDS: Promethazine 6.25 MG/5 ML CUP PO PRN ×2 (10:26→15:17)
--- NOTE | 2018-07-08 13:42 | PN ---
DATE: 07/08/2018 REASON FOR THE CONSULTATION AND FOLLOWUP: Admitted with acute exacerbation of COPD, followup history of PAD, history of paroxysmal atrial fibrillation. SUBJECTIVE: The patient denies any chest pain, shortness of breath, any palpitations. Slept well last night. PHYSICAL EXAMINATION: VITAL SIGNS: Temperature afebrile. Heart rate 60 and blood pressure 110/60. HEENT: PERRLA. Extraocular muscles intact. NECK: Supple. No carotid bruits. No thyromegaly. CHEST: Clear to auscultation. HEART: S1 and S2, regular. ABDOMEN: Soft. EXTREMITIES: Clubbing and cyanosis, negative. LABORATORY DATA: Blood workup as follows, WBC 16, hematocrit 34.5 and platelet count 385. Chemistry shows sodium 130, potassium 4.4, chloride 104, carbon dioxide 27, anion gap of 12, BUN 47 and creatinine 1.5. IMPRESSION: A 78-year-old male with past medical history significant for coronary artery disease, status post percutaneous transluminal coronary angioplasty in the past, history of paroxysmal atrial fibrillation on Xarelto, history of coronary artery disease, stent in 2012 by , history of multiple sclerosis, hard of hearing, history of bilateral meniscectomy, right inguinal hernia repair, history of cardiac catheterization and plain balloon angioplasty after having non-ST segment elevation myocardial infarction, perioperative gallbladder surgery. Plain balloon angioplasty was done because it could not take the stent. Because of stent in the LAD came in with acute exacerbation chronic obstructive pulmonary disease. As mentioned, stent could not be deployed because of the stent in the previously placed left anterior descending was taking out. The patient's last echo done on 02/05/2018 shows ejection 35% mild to moderate mitral regurgitation, mild tricuspid regurgitation, right ventricular systolic pressure 23. RECOMMENDATIONS: Continue aggressive treatment for COPD. So far, no evidence of acute AK. Continue amiodarone on Saturday, Saturday and Saturday. Continue Coreg, awaiting for TCU bed to be placed for rehab. Further recommendations depending upon hospital course. We will follow with you. Thank you Dr. Osborne for providing us the opportunity in taking care of the patient, Spenser Elizalde. Mohammad Shun, MD
[2018-07-08 13:45] VITALS: RESP 20; TEMP 98.1; O2SAT 96
--- NOTE | 2018-07-08 13:54 | PN ---
DATE: 07/08/2018 SUBJECTIVE: The patient appears comfortable this morning. He is not short of breath at rest. PHYSICAL EXAMINATION: VITAL SIGNS: (Last noted in the computer): Temperature is 98.4, pulse 65, respirations 18/20, blood pressure 101/56. Oxygen saturation on nasal cannula - 99%. HEENT: Normocephalic, atraumatic. No JVD. CARDIOVASCULAR: Positive S1, S2. No S3 gallop. LUNGS: Improved breath sounds at the bases. Less rhonchi. No wheezing. EXTREMITIES: No clubbing, cyanosis, or edema. Calves are nontender to palpation. GASTROINTESTINAL: Abdomen is soft, nontender, nondistended. Bowel sounds are positive. SKIN: No acute rash. NEUROLOGIC: Exam limited at the present time. IMPRESSION: 1. Acute bronchitis. 2. Advanced chronic obstructive pulmonary disease, on home oxygen. 3. Multiple sclerosis. 4. Mild anemia. 5. Mild renal insufficiency. PLAN The patient appears comfortable this morning. He is not short of breath at rest. He does state to feeling better overall. I did discuss the case with the night nurse at length. The night nurse stated the patient had an uneventful night. On physical exam, his bronchospasm is less. In addition, the alveolar arterial gradient is also less. I will continue the current nebulizer treatments and low-dose intravenous steroids for now. Input by Cardiology is also noted. Clinical status of the patient is certainly improved - compared to the initial presentation. However, the future status/prognosis for this chronically ill elderly patient, remains very guarded. I will discuss the above with the attending physician. Amanuel Riggins MD [facility]
--- NOTE | 2018-07-08 17:30 | CP.PCM.DIS ---
<Chele Riggs - Last Filed: 07/08/18 17:23> Provider - Provider Date of Admission: 07/03/18 21:00 Attending physician: Ap Osborne MD Primary care physician: NO PRIMARY CARE PROVIDER Consults: 07/03/18 22:04 Nursing Referral for Palliative Care Routine Comment: copd Physician Instructions: Reason For Exam: assess Social Work Referral Routine Comment: d/c plan Physician Instructions: Reason For Exam: assess 07/03/18 22:41 Case Management Referral Routine Comment: Physician Instructions: Reason For Exam: Reason for Referral: Discharge Planning Inpatient X RAY SERVICE ENGINEER Core Measures Referral Routine Comment: copd Physician Instructions: Reason For Exam: assess Transition In Care/Readmission Reduction Routine Comment: copd Physician Instructions: Reason For Exam: assess 07/04/18 06:59 Cardiology Consult Routine Comment: Consulting Provider: Valeria Hoffmann Consulting Physician: Valeria Hoffmann Reason for Consult: Worsening SOB Pulmonology Consult Routine Comment: Consulting Provider: Amanuel Riggins Consulting Physician: Amanuel Riggins Reason for Consult: Worsening SOB 07/07/18 16:12 TCU [Evaluation for TRCU] Routine Comment: Physician Instructions: Reason For Exam: gait dysfunction Time Spent in preparation of Discharge (in minutes): 50 Diagnosis - Discharge Diagnosis (1) COPD (chronic obstructive pulmonary disease) Status: Chronic Priority: Medium Hospital Course - Lab Results Lab Results: Micro Results 07/03/18 19:35 Blood-Venous Blood Culture - Preliminary NO GROWTH AFTER 4 DAYS 07/03/18 19:15 Blood-Venous Blood Culture - Preliminary NO GROWTH AFTER 4 DAYS Most Recent Lab Values WBC 16.0 10^3/uL (4.5-11.0) H D 07/07/18 07:00 RBC 3.92 10^6/uL (3.5-6.1) 07/07/18 07:00 Hgb 10.3 g/dL (14.0-18.0) L 07/07/18 07:00 Hct 34.5 % (42.0-52.0) L 07/07/18 07:00 MCV 88.0 fl (80.0-105.0) 07/07/18 07:00 MCH 26.3 pg (25.0-35.0) 07/07/18 07:00 MCHC 29.9 g/dl (31.0-37.0) L 07/07/18 07:00 RDW 18.1 % (11.5-14.5) H 07/07/18 07:00 Plt Count 384 10^3/uL (120.0-450.0) 07/07/18 07:00 MPV 8.5 fl (7.0-11.0) 07/07/18 07:00 Neut % (Auto) 68.9 % (50.0-68.0) H 07/07/18 07:00 Lymph % (Auto) 25.1 % (22.0-35.0) 07/07/18 07:00 [place] % (Auto) 5.6 % (1.0-6.0) 07/07/18 07:00 Eos % (Auto) 0.1 % (1.5-5.0) L 07/07/18 07:00 Baso % (Auto) 0.3 % (0.0-3.0) 07/07/18 07:00 Lymph # (Auto) 4.0 (1.2-3.4) H 07/07/18 07:00 [place] # (Auto) 0.9 (0.1-0.6) H 07/07/18 07:00 Eos # (Auto) 0.0 (0.0-0.7) 07/07/18 07:00 Baso # (Auto) 0.04 K/mm3 (0.0-2.0) 07/07/18 07:00 Absolute Neuts (auto) 11.01 (1.4-6.5) H 07/07/18 07:00 PT 13.3 SECONDS (9.4-12.5) H 07/03/18 19:50 INR 1.20 07/03/18 19:50 APTT 25.3 Seconds (26.9-38.3) L 07/03/18 19:50 pCO2 24 mm/Hg (35-45) L 07/03/18 20:20 pO2 26 mm/Hg (30-55) L 07/03/18 23:27 HCO3 26.4 mmol/L (21-28) 07/03/18 20:20 ABG pH 7.65 (7.35-7.45) H* 07/03/18 20:20 ABG Total CO2 27.1 mmol.L (22-28) 07/03/18 20:20 ABG O2 Saturation 92.3 % (95-98) L 07/03/18 20:20 ABG O2 Content 12.2 ML/dl (15-23) L 07/03/18 20:20 ABG Base Excess 6.0 mmol/L (-2.0-3.0) H 07/03/18 20:20 ABG Hemoglobin 9.7 g/dL (11.7-17.4) L 07/03/18 20:20 ABG Carboxyhemoglobin 2.6 % (0.5-1.5) H 07/03/18 20:20 POC ABG HHb (Measured) 7.4 % (0-5) H 07/03/18 20:20 ABG Methemoglobin 0.9 % (0.0-3.0) 07/03/18 20:20 ABG O2 Capacity 13.2 mL/dl (16-24) L 07/03/18 20:20 VBG pH 7.48 (7.32-7.43) H 07/03/18 23:27 VBG pCO2 37.0 (40-60) L 07/03/18 23:27 VBG HCO3 27.6 mmol/l (21-28) 07/03/18 23:27 VBG Total CO2 28.7 mmol.L (22-28) H 07/03/18 23:27 VBG O2 Sat (Calc) 47.7 % (40-65) 07/03/18 23: VBG Base Excess 4.0 mmol/L (0.0-2.0) H 07/03/18 23: VBG Potassium 3.3 mmol/L (3.6-5.2) L 07/03/18 23:27 Hgb O2 Saturation 89.0 % (95.0-98.0) L 07/03/18 20:20 Sodium 140.0 mmol/L (132-148) 07/03/18 23: Chloride 103.0 mmol/L (98-107) 07/03/18 23: Glucose 160 mg/dl (75-110) H 07/03/18 23:27 Lactate 2.3 mmol/L (0.7-2.1) H 07/03/18 23:27 FiO2 21.0 % 07/03/18 23:27 Crit Value Called To Jasson coronel rn 5rso 07/03/18 23:27 Crit Value Called By Tara 07/03/18 23:27 Blood Gas Notified Time 2475 07/03/18 23:27 Sodium 138 mmol/L (132-148) 07/07/18 07:00 Potassium 4.4 mmol/L (3.6-5.0) 07/07/18 07:00 Chloride 104 mmol/L (98-107) 07/07/18 07:00 Carbon Dioxide 27 mmol/L (21-33) 07/07/18 07:00 Anion Gap 12 (10-20) 07/07/18 07:00 BUN 47 mg/dL (7-21) H 07/07/18 07:00 Creatinine 1.5 mg/dl (0.8-1.5) 07/07/18 07:00 Est GFR ( Amer) 55 07/07/18 07:00 Est GFR (Non-Af Amer) 45 07/07/18 07:00 Random Glucose 93 mg/dL (70-110) 07/07/18 07:00 Hemoglobin A1c 6.6 % (4.2-6.5) H 07/05/18 07:00 Lactic Acid 3.5 mmol/L (0.7-2.1) H 07/04/18 03:28 Calcium 9.2 mg/dL (8.4-10.5) 07/07/18 07:00 Phosphorus 4.9 mg/dL (2.5-4.5) H 07/05/18 07:00 Magnesium 2.0 mg/dL (1.7-2.2) 07/05/18 07:00 Total Bilirubin 0.4 mg/dL (0.2-1.3) 07/07/18 07:00 AST 41 U/L (17-59) 07/07/18 07:00 ALT 25 U/L (7-56) 07/07/18 07:00 Alkaline Phosphatase 73 U/L (38-126) 07/07/18 07:00 Lactate Dehydrogenase 500 U/L (333-699) 07/03/18 19:50 Total Creatine Kinase 54 U/L (35-230) 07/03/18 19:50 Troponin I 0.10 ng/mL D 07/03/18 19:50 NT-Pro-B Natriuret Pep 1600 pg/mL (0-450) H 07/03/18 19:50 Total Protein 6.4 g/dL (5.8-8.3) 07/07/18 07:00 Albumin 3.3 g/dL (3.0-4.8) 07/07/18 07:00 Globulin 3.1 gm/dL 07/07/18 07:00 Albumin/Globulin Ratio 1.1 (1.1-1.8) 07/07/18 07:00 Triglycerides 62 mg/dL (35-160) 07/05/18 07:00 Cholesterol 147 mg/dL (130-200) 07/05/18 07:00 LDL Cholesterol Direct 90 mg/dL (0-129) 07/05/18 07:00 HDL Cholesterol 41 mg/dL (29-60) 07/05/18 07:00 TSH 3rd Generation 3.59 mIU/mL (0.46-4.68) 07/05/18 07:00 Venous Blood Potassium 3.3 mmol/L (3.6-5.2) L 07/03/18 23:27 Urine Color Yellow (YELLOW) 07/03/18 22:20 Urine Appearance Clear (CLEAR) 07/03/18 22:20 Urine pH 6.5 (4.7-8.0) 07/03/18 22:20 Ur Specific [place] 1.010 (1.005-1.035) 07/03/18 22:20 Urine Protein Trace mg/dL (<30 mg/dL) H 07/03/18 22:20 Urine Glucose (UA) Negative mg/dL (NEGATIVE) 07/03/18 22:20 Urine Ketones Negative mg/dL (NEGATIVE) 07/03/18 22:20 Urine Blood Negative (NEGATIVE) 07/03/18 22:20 Urine Nitrate Negative (NEGATIVE) 07/03/18 22:20 Urine Bilirubin Negative (NEGATIVE) 07/03/18 22:20 Urine Urobilinogen 2.0 E.U./dL (<1 E.U./dL) H 07/03/18 22:20 Ur Leukocyte Esterase Negative Román/uL (NEGATIVE) 07/03/18 22:20 Urine RBC 0 - 2 /hpf (0-2) 07/03/18 22:20 Urine WBC None /hpf (0-6) 07/03/18 22:20 Ur Epithelial Cells None /hpf (0-5) 07/03/18 22:20 - Hospital Course Hospital Course: Chele Riggs D.O. PGY-3, Internal Medicine Resident, Dr. Osborne's Service, Discharge Summary 77 year old male with a PMH of COPD, HFrEF 35%, HTN, CAD s/p stent, Afib on xarelto, hypothyroidism, multiple sclerosis who presents for complaints of shortness of breath for 2 weeks. Patient was admitted for management of his acute exacerbation of COPD. Patient had a chest x-ray which revealed no active disease. Patient was managed with albuterol, Brovana, scheduled and as needed breathing treatments as well as IV steroid therapy. Patient was evaluated by pulmonary. The recommendations were appreciated. Patient was also evaluated by cardiology who agreed that his symptomatology of shortness of breath was secondary to a COPD and there was no acute issues with his history of heart failure. For his atrial fibrillation he was managed on amiodarone and Xarelto. For his history of heart failure he was continued on his home carvedilol, Imdur and Entresto. For his CAD history patient was continue with his home aspirin and Lipitor. Patient's cough was well controlled with promethazine syrup and guaifenesin. For his hypothyroidism patient was continued on his home levothyroxine. For his anxiety and bipolar disorder patient was doing well with his home mirtazapine and as needed alprazolam. Patient had also some chronic knee pain for which he continued on oxycodone. Patient was evaluated by physical therapy we determined that he did not require subacute rehab only outpatient services. Patient's Girard was removed. Patient was seen and examined at bedside this morning and found to be doing significantly better. We discussed his medications including a prednisone taper which has been sent electronically to his pharmacy. Patient has all of the medications and states he does not need any other ones. All questions were welcomed and answered with verbal satisfaction. Patient was given clear instructions to follow-up with primary medical doctor within 1 to 2 weeks. Patient to follow-up with cardiology and pulmonary as indicated. Discussed with nursing staff. - Date & Time of H&P Date of H&P: 07/08/18 Time of H&P: 17:23 Discharge Exam - Head Exam Head Exam: NORMAL INSPECTION, NORMOCEPHALIC Discharge Plan - Discharge Medications Prescriptions: Lidocaine 2% Viscous 15 ml MM Q3H #1 bottle predniSONE [predniSONE Tab] 20 mg PO DAILY #10 tab - Follow Up Plan Condition: FAIR Disposition: HOME/ ROUTINE Instructions: Preventing Falls in the Older Adult, Atrial Fibrillation (DC), Peripheral Vascular (Arterial) Disease (DC), How to Care for Your Girard Catheter, Male, Exacerbation of COPD (DC), Multiple Sclerosis, Adult (DC) Additional Instructions: 1. Follow up with PMD within 1 week. 2. Take prednisone taper as written. 3. Continue home medications. 4. Maintain hydration. 5. Follow up with subspecialists as indicated. Referrals: Valeria Hoffmann MD [Staff Provider] - Jake Negron MD [Staff Provider] - Amanuel Riggins MD [Staff Provider] - Oli Parr MD [Staff Provider] - <Ap Osborne - Last Filed: 07/08/18 17:38> Provider - Provider Date of Admission: 07/03/18 21:00 Attending physician: Ap Osborne MD Primary care physician: NO PRIMARY CARE PROVIDER Consults: 07/03/18 22:04 Nursing Referral for Palliative Care Routine Comment: copd Physician Instructions: Reason For Exam: assess Social Work Referral Routine Comment: d/c plan Physician Instructions: Reason For Exam: assess 07/03/18 22:41 Case Management Referral Routine Comment: Physician Instructions: Reason For Exam: Reason for Referral: Discharge Planning Inpatient X RAY SERVICE ENGINEER Core Measures Referral Routine Comment: copd Physician Instructions: Reason For Exam: assess Transition In Care/Readmission Reduction Routine Comment: copd Physician Instructions: Reason For Exam: assess 07/04/18 06:59 Cardiology Consult Routine Comment: Consulting Provider: Valeria Hoffmann Consulting Physician: Valeria Hoffmann Reason for Consult: Worsening SOB Pulmonology Consult Routine Comment: Consulting Provider: Amanuel Riggins Consulting Physician: Amanuel Riggins Reason for Consult: Worsening SOB 07/07/18 16:12 TCU [Evaluation for TRCU] Routine Comment: Physician Instructions: Reason For Exam: gait dysfunction Hospital Course - Lab Results Lab Results: Micro Results 07/03/18 19:35 Blood-Venous Blood Culture - Preliminary NO GROWTH AFTER 4 DAYS 07/03/18 19:15 Blood-Venous Blood Culture - Preliminary NO GROWTH AFTER 4 DAYS Most Recent Lab Values WBC 16.0 10^3/uL (4.5-11.0) H D 07/07/18 07:00 RBC 3.92 10^6/uL (3.5-6.1) 07/07/18 07:00 Hgb 10.3 g/dL (14.0-18.0) L 07/07/18 07:00 Hct 34.5 % (42.0-52.0) L 07/07/18 07:00 MCV 88.0 fl (80.0-105.0) 07/07/18 07:00 MCH 26.3 pg (25.0-35.0) 07/07/18 07:00 MCHC 29.9 g/dl (31.0-37.0) L 07/07/18 07:00 RDW 18.1 % (11.5-14.5) H 07/07/18 07:00 Plt Count 384 10^3/uL (120.0-450.0) 07/07/18 07:00 MPV 8.5 fl (7.0-11.0) 07/07/18 07:00 Neut % (Auto) 68.9 % (50.0-68.0) H 07/07/18 07:00 Lymph % (Auto) 25.1 % (22.0-35.0) 07/07/18 07:00 [place] % (Auto) 5.6 % (1.0-6.0) 07/07/18 07:00 Eos % (Auto) 0.1 % (1.5-5.0) L 07/07/18 07:00 Baso % (Auto) 0.3 % (0.0-3.0) 07/07/18 07:00 Lymph # (Auto) 4.0 (1.2-3.4) H 07/07/18 07:00 [place] # (Auto) 0.9 (0.1-0.6) H 07/07/18 07:00 Eos # (Auto) 0.0 (0.0-0.7) 07/07/18 07:00 Baso # (Auto) 0.04 K/mm3 (0.0-2.0) 07/07/18 07:00 Absolute Neuts (auto) 11.01 (1.4-6.5) H 07/07/18 07:00 PT 13.3 SECONDS (9.4-12.5) H 07/03/18 19:50 INR 1.20 07/03/18 19:50 APTT 25.3 Seconds (26.9-38.3) L 07/03/18 19:50 pCO2 24 mm/Hg (35-45) L 07/03/18 20:20 pO2 26 mm/Hg (30-55) L 07/03/18 23:27 HCO3 26.4 mmol/L (21-28) 07/03/18 20:20 ABG pH 7.65 (7.35-7.45) H* 07/03/18 20:20 ABG Total CO2 27.1 mmol.L (22-28) 07/03/18 20:20 ABG O2 Saturation 92.3 % (95-98) L 07/03/18 20:20 ABG O2 Content 12.2 ML/dl (15-23) L 07/03/18 20:20 ABG Base Excess 6.0 mmol/L (-2.0-3.0) H 07/03/18 20:20 ABG Hemoglobin 9.7 g/dL (11.7-17.4) L 07/03/18 20:20 ABG Carboxyhemoglobin 2.6 % (0.5-1.5) H 07/03/18 20:20 POC ABG HHb (Measured) 7.4 % (0-5) H 07/03/18 20:20 ABG Methemoglobin 0.9 % (0.0-3.0) 07/03/18 20:20 ABG O2 Capacity 13.2 mL/dl (16-24) L 07/03/18 20:20 VBG pH 7.48 (7.32-7.43) H 07/03/18 23:27 VBG pCO2 37.0 (40-60) L 07/03/18 23:27 VBG HCO3 27.6 mmol/l (21-28) 07/03/18 23:27 VBG Total CO2 28.7 mmol.L (22-28) H 07/03/18 23:27 VBG O2 Sat (Calc) 47.7 % (40-65) 07/03/18 23: VBG Base Excess 4.0 mmol/L (0.0-2.0) H 07/03/18: VBG Potassium 3.3 mmol/L (3.6-5.2) L 07/03/18: Hgb O2 Saturation 89.0 % (95.0-98.0) L 07/03/18 20:20 Sodium 140.0 mmol/L (132-148) 07/03/18 23: Chloride 103.0 mmol/L (98-107) 07/03/18: Glucose 160 mg/dl (75-110) H 07/03/18: Lactate 2.3 mmol/L (0.7-2.1) H 07/03/18: FiO2 21.0 % 07/03/18: Crit Value Called To Jasson coronel rn 5rso 07/03/18: Crit Value Called By Tara 07/03/18: Blood Gas Notified Time 1497 07/03/18: Sodium 138 mmol/L (132-148) 07/07/18 07:00 Potassium 4.4 mmol/L (3.6-5.0) 07/07/18 07:00 Chloride 104 mmol/L (98-107) 07/07/18 07:00 Carbon Dioxide 27 mmol/L (21-33) 07/07/18 07:00 Anion Gap 12 (10-20) 07/07/18 07:00 BUN 47 mg/dL (7-21) H 07/07/18 07:00 Creatinine 1.5 mg/dl (0.8-1.5) 07/07/18 07:00 Est GFR ( Amer) 55 07/07/18 07:00 Est GFR (Non-Af Amer) 45 07/07/18 07:00 Random Glucose 93 mg/dL (70-110) 07/07/18 07:00 Hemoglobin A1c 6.6 % (4.2-6.5) H 07/05/18 07:00 Lactic Acid 3.5 mmol/L (0.7-2.1) H 07/04/18 03:28 Calcium 9.2 mg/dL (8.4-10.5) 07/07/18 07:00 Phosphorus 4.9 mg/dL (2.5-4.5) H 07/05/18 07:00 Magnesium 2.0 mg/dL (1.7-2.2) 07/05/18 07:00 Total Bilirubin 0.4 mg/dL (0.2-1.3) 07/07/18 07:00 AST 41 U/L (17-59) 07/07/18 07:00 ALT 25 U/L (7-56) 07/07/18 07:00 Alkaline Phosphatase 73 U/L (38-126) 07/07/18 07:00 Lactate Dehydrogenase 500 U/L (333-699) 07/03/18 19:50 Total Creatine Kinase 54 U/L (35-230) 07/03/18 19:50 Troponin I 0.10 ng/mL D 07/03/18 19:50 NT-Pro-B Natriuret Pep 1600 pg/mL (0-450) H 07/03/18 19:50 Total Protein 6.4 g/dL (5.8-8.3) 07/07/18 07:00 Albumin 3.3 g/dL (3.0-4.8) 07/07/18 07:00 Globulin 3.1 gm/dL 07/07/18 07:00 Albumin/Globulin Ratio 1.1 (1.1-1.8) 07/07/18 07:00 Triglycerides 62 mg/dL (35-160) 07/05/18 07:00 Cholesterol 147 mg/dL (130-200) 07/05/18 07:00 LDL Cholesterol Direct 90 mg/dL (0-129) 07/05/18 07:00 HDL Cholesterol 41 mg/dL (29-60) 07/05/18 07:00 TSH 3rd Generation 3.59 mIU/mL (0.46-4.68) 07/05/18 07:00 Venous Blood Potassium 3.3 mmol/L (3.6-5.2) L 07/03/18 23:27 Urine Color Yellow (YELLOW) 07/03/18 22:20 Urine Appearance Clear (CLEAR) 07/03/18 22:20 Urine pH 6.5 (4.7-8.0) 07/03/18 22:20 Ur Specific [place] 1.010 (1.005-1.035) 07/03/18 22:20 Urine Protein Trace mg/dL (<30 mg/dL) H 07/03/18 22:20 Urine Glucose (UA) Negative mg/dL (NEGATIVE) 07/03/18 22:20 Urine Ketones Negative mg/dL (NEGATIVE) 07/03/18 22:20 Urine Blood Negative (NEGATIVE) 07/03/18 22:20 Urine Nitrate Negative (NEGATIVE) 07/03/18 22:20 Urine Bilirubin Negative (NEGATIVE) 07/03/18 22:20 Urine Urobilinogen 2.0 E.U./dL (<1 E.U./dL) H 07/03/18 22:20 Ur Leukocyte Esterase Negative Román/uL (NEGATIVE) 07/03/18 22:20 Urine RBC 0 - 2 /hpf (0-2) 07/03/18 22:20 Urine WBC None /hpf (0-6) 07/03/18 22:20 Ur Epithelial Cells None /hpf (0-5) 07/03/18 22:20 - Hospital Course Hospital Course: Pt seen and examined by me. I have reviewed the note of the rn medical inpatient services and I agree with it. I have discussed the assessment and plan with the resident. I have reviewed the medications and the last labs.
[2018-07-08 18:19] VITALS: BP 112/66; PULSE 68
--- NOTE | 2018-07-09 02:17 | DS ---
HOSPITAL COURSE: The patient was seen and examined. I do agree with the note of the medical office rep. I was involved in the plan of care. The patient was admitted to the hospital because of an acute COPD exacerbation. He was placed on nebulizer treatment and steroids. He started to have improvement of his symptoms. He also has a history of atrial fibrillation and he is on Xarelto. He has hypothyroidism and is on thyroid medications. He has MS that is stable. He did not require to go to subacute rehab after he was seen by Physical Therapy. The patient is going to be discharged home. He is going to be on a prednisone taper. He has no complaints of any headaches or dizziness. No nausea. He says he has been sleeping well. He is going to be discharged home. CONDITION: Stable. ACTIVITIES: Increase as tolerated. Ap Osborne MD
== END 2018-07-08 23:20 | disposition home or self-care (01) | DRG 191 ==
LOC: ED 18:46 → ERH 21:00 → 5RSO 22:55
PROVIDERS: ADMIT Internal Medicine Nephrology; ATTEND Internal Medicine Nephrology
PROC: 3E0F7GC Introduction of Other Therapeutic Substance into Respiratory Tract, Via Natural or Artificial Opening (ICD-10-PCS; principal; 2018-07-04)
DX: J44.1 Chronic obstructive pulmonary disease with (acute) exacerbation (principal); I50.22 Chronic systolic (congestive) heart failure; C90.00 Multiple myeloma not having achieved remission; J44.0 Chronic obstructive pulmonary disease with (acute) lower respiratory infection; I11.0 Hypertensive heart disease with heart failure; G35 Multiple sclerosis; J20.9 Acute bronchitis, unspecified; I25.5 Ischemic cardiomyopathy; I48.2 Chronic atrial fibrillation; I48.0 Paroxysmal atrial fibrillation; D64.9 Anemia, unspecified; E78.5 Hyperlipidemia, unspecified; E03.9 Hypothyroidism, unspecified; I25.10 Atherosclerotic heart disease of native coronary artery without angina pectoris; N40.0 Benign prostatic hyperplasia without lower urinary tract symptoms; F31.9 Bipolar disorder, unspecified; F41.9 Anxiety disorder, unspecified; I08.1 Rheumatic disorders of both mitral and tricuspid valves; H91.90 Unspecified hearing loss, unspecified ear; E78.00 Pure hypercholesterolemia, unspecified; G89.29 Other chronic pain; M25.569 Pain in unspecified knee; M19.90 Unspecified osteoarthritis, unspecified site; I25.2 Old myocardial infarction; Z99.81 Dependence on supplemental oxygen; Z79.01 Long term (current) use of anticoagulants; Z79.82 Long term (current) use of aspirin; Z79.890 Hormone replacement therapy; Z79.899 Other long term (current) drug therapy; Z87.01 Personal history of pneumonia (recurrent); Z95.5 Presence of coronary angioplasty implant and graft; Z87.891 Personal history of nicotine dependence